=== PATIENT | female | born 1990 | race Caucasian/White ===

== ENCOUNTER 2016-12-07 21:47 | Inpatient (IN) | payer OTHER ==
[~2016-12-07] VITALS: Ht 172.7 cm; Wt 72.1 kg
[~2016-12-07 21:47] MED LIST: NORE1TAB60 PO
[2016-12-07 21:56] VITALS: BP 106/66; PULSE 128; RESP 20; TEMP 97.8; O2SAT 97
[2016-12-07] MEDS ORDERED: ACETAMINOPHEN 325 MG TAB PO PRN ×2 (22:00)
[2016-12-07] MEDS ORDERED: Vancomycin Consult Pharmacy 1 EA OTHER SCH (22:00)
[2016-12-07] MEDS ORDERED: MAGNESIUM HYDROXIDE SUSP 30 ML CUP PO PRN (22:00)
[2016-12-07] MEDS ORDERED: ONDANSETRON HCL 4 MG/2 ML VIAL IVP PRN (22:00)
[2016-12-07] MEDS ORDERED: SODIUM CHLORIDE 0.9% FLUSH 10 ML FLUSH IV FLUSH PRN (22:00)
[2016-12-07] MEDS: SODIUM CHLOR 0.9% 1000 ML INJ 1,000 ML IV SCH (23:08)
[2016-12-07] MEDS: ENOXAPARIN SODIUM 40 MG/0.4 ML SYRINGE SQ SCH (23:08)
[2016-12-07] MEDS: diphenhydrAMINE HCL 50 MG CAP PO PRN (23:31)
[2016-12-08 00:40] VITALS: BP 106/64; PULSE 118; RESP 18; TEMP 96.7; O2SAT 97
[2016-12-08 07:48] LABS: CHLORIDE 108 MEQ/L (98-107); POTASSIUM 3.8 MEQ/L (3.5-5.1); SODIUM (NA) 141 MEQ/L (136-145)
[2016-12-08 07:53] LABS: ANION GAP 6 MEQ/L (5-15); BICARBONATE 27.3 MEQ/L (21.0-32.0); BLOOD UREA NITROGEN 10 MG/DL (7-18)
[2016-12-08 07:56] LABS: ALT (GPT) 21 U/L (10-53); AST (GOT) 14 U/L (15-37); GLOMERULAR FILTRATION RATE 106 ML/MIN (>89)
[2016-12-08 07:58] LABS: TOTAL BILIRUBIN ADULT 0.7 MG/DL (0.2-1.0)
[2016-12-08 07:59] LABS: ALKALINE PHOSPHATASE 161 U/L (45-117)
[2016-12-08 08:00] VITALS: BP 101/71; PULSE 114; RESP 20; TEMP 97.6; O2SAT 94
[2016-12-08] MEDS ORDERED: VANCOMYCIN INJ 1,250 MG in SODIUM CHLOR 0.9% 250 ML INJ 250 ML IV SCH ×2 (08:00→09:00)
[2016-12-08] MEDS: SODIUM CHLOR 0.9% 1000 ML INJ 1,000 ML IV SCH ×3 (08:18→22:57)
[2016-12-08] MEDS: cefTRIAXone INJ 1,000 MG in SODIUM CHLORIDE 0.9% INJ 100 ML IV SCH (08:18)
[2016-12-08] MEDS: LACTOBACILLUS ACIDOPHILUS TAB PO SCH ×2 (08:19→22:57)
[2016-12-08] MEDS: SODIUM CHLORIDE 0.9% FLUSH 10 ML FLUSH IV FLUSH SCH ×2 (08:19→21:00)
[2016-12-08] MEDS ORDERED: SUBO8MIS SL (10:43)
[2016-12-08 12:00] VITALS: BP 118/77; PULSE 119; RESP 18; TEMP 97.6; O2SAT 99
--- NOTE | 2016-12-08 12:25 | HHI.HP ---
[facility] Primary Care Physician No Primary Care Physician Admission Diagnosis Diagnoses: (1) Sepsis (2) Gram-positive bacteremia (3) Bilateral pneumonia (4) IVDU (intravenous drug user) Chief Complaint: Shortness of breath Travel History International Travel<30 Days: No Contact w/Intl Traveler <30 Da: No Traveled to Known Affected Are: No Sepsis Criteria SIRS Criteria (2 or more): Heart rate over 90, RR > 20 or PaCO2 < 32 Sepsis Criteria (SIRS+source): Infect source susp/known Criteria Outcome: Meets sepsis criteria History of Present Illness 26 year-old female for past history of IVDU presented to the [place] ED for evaluation of worsening shortness of breath, hemoptysis and subjective fever with temperature of 103 times several days duration along with pleuritic chest pain. Patient states she's completed a second course of 10 days antibiotic for pneumonia. She was initially diagnosed with community acquired bacterial pneumonia in 10/30/16 however was able to fill out her prescription of Levaquin and prednisone on 11/04/16. Her second bout of pneumonia for which patient was put on a ten-day course of antibiotics was 11/19/16 patient recently completed. She also reports prior history of IVDU however has been clean over the past 3 years, unfortunately patient did use cocaine recently. She denies any hematuria, GI bleed. Review of Systems Except as stated in HPI: all other systems reviewed are Neg Past Family Social History Past Medical History H/O recent PNA IVDU Past Surgical History Previous surgery Reported Medications Suboxone Allergies: Coded Allergies: No Known Allergies (Unverified , 12/07/16) Family History Strong family history of diabetes, lung cancer Social History Alcohol Use: No Tobacco Use: Yes Substance Use: Recent cocaine use Physical Exam Vital Signs Vital Signs Date Time Temp Pulse Resp B/P Pulse Ox O2 Delivery O2 Flow Rate FiO2 12/08/16 08:00 97.6 114 20 101/71 94 12/08/16 00:40 96.7 118 18 106/64 97 12/07/16 21:56 97.8 128 20 106/66 97 12/07/16 21:56 97.8 128 20 106/66 97 Physical Exam GENERAL: This is a well-nourished, well-developed patient, in no apparent distress. SKIN: No rashes, ecchymoses or lesions. Cool and dry. HEAD: Atraumatic. Normocephalic. No temporal or scalp tenderness. EYES: Pupils equal round and reactive. Extraocular motions intact. No scleral icterus. No injection or drainage. ENT: Nose without bleeding, purulent drainage or septal hematoma. Throat without erythema, tonsillar hypertrophy or exudate. Uvula midline. Airway patent. NECK: Trachea midline. No JVD or lymphadenopathy. Supple, nontender, no meningeal signs. CARDIOVASCULAR: Regular rate and rhythm without murmurs, gallops, or rubs. RESPIRATORY: Clear to auscultation. Breath sounds equal bilaterally. No wheezes , rales, or rhonchi. GASTROINTESTINAL: Abdomen soft, non-tender, nondistended. No hepato-splenomegaly , or palpable masses. No guarding. MUSCULOSKELETAL: Extremities without clubbing, cyanosis, or edema. No joint tenderness, effusion, or edema noted. No calf tenderness. Negative Homans sign bilaterally. NEUROLOGICAL: Awake and alert. Cranial nerves II through XII intact. Motor and sensory grossly within normal limits. Five out of 5 muscle strength in all muscle groups. Normal speech. Laboratory Laboratory Tests Test 12/08/16 07:18 Sodium Level 141 Potassium Level 3.8 Chloride Level 108 Carbon Dioxide Level 27.3 Anion Gap 6 Blood Urea Nitrogen 10 Creatinine 0.67 Estimat Glomerular Filtration 106 Rate Random Glucose 98 Calcium Level 8.1 Total Bilirubin 0.7 Aspartate Amino Transf 14 (AST/SGOT) Alanine Aminotransferase 21 (ALT/SGPT) Alkaline Phosphatase 161 Total Protein 6.9 Albumin 1.9 Date/Time Procedure Status Source Growth 12/08/16 12:10 Aerobic Blood Culture Received Blood Peripheral Pending 12/08/16 12:10 Anaerobic Blood Culture Received Blood Peripheral Pending Result Diagram: 12/08/16 0718 Septic Shock Reassessment Skin: Warm, Switzer Peripheral Pulses: Bounding Right Radial Bounding Left Radial Bounding Right Popliteal Bounding Left Popliteal Bounding Right Dorsalis Pedis Bounding Left Dorsalis Pedis Bounding Right Posterior Tibial Bounding Left Posterior Tibial Capillary Refill: >2 seconds Assessment and Plan Problem List: (1) Sepsis ICD Code: A41.9 Status: Acute (2) Bilateral pneumonia ICD Code: J18.9 Status: Acute (3) Gram-positive bacteremia ICD Code: R78.81 Status: Acute (4) IVDU (intravenous drug user) ICD Code: F19.90 Status: Acute Assessment and Plan 26-year-old female with Sepsis: Meets sepsis criteria; Heart rate over 90, RR > 20 or PaCO2 < 32, Infect source susp/known (lungs). Lactic acid 1.2 currently on Rocephin and vancomycin pending culture reports Community acquired bacterial pneumonia Chest x-ray noted and reviewed by me with finding of bilateral pulmonary infiltrate Continue with above antibiotics Gram-positive bacteremia Repeat blood culture Continue current antibiotics Check 2-D echo secondary to patient history of IVDU Consult infectious disease specialist IVDU UDS positive for cocaine Counseled to quit DVT prophylaxis: Bilateral SCDs Code Status Full code Discussed Condition With Patient, ED physician Physician Certification 2 Midnight Certification Type: Admission for Inpatient Services Order for Inpatient Services The services are ordered in accordance with Medicare regulations or non- Medicare payer requirements, as applicable. In the case of services not specified as inpatient-only, they are appropriately provided as inpatient services in accordance with the 2-midnight benchmark. Estimated LOS (days): 2 days is the estimated time the patient will need to remain in the hospital, assuming treatment plan goals are met and no additional complications. Post-Hospital Plan: Not yet determined Yogesh Gomez MD Dec 08, 2016 12:25
[2016-12-08] MEDS: VANCOMYCIN 1,000 MG/NS 250 ML IV SCH ×4 (15:44→23:06)
[2016-12-08] MEDS: IBUPROFEN 400 MG TAB PO PRN (15:45)
[2016-12-08 16:00] VITALS: BP 117/74; PULSE 119; RESP 19; TEMP 98.6; O2SAT 97
--- NOTE | 2016-12-08 17:57 | ECHRPT ---
Indication: CONCLUSIONS Wall thickness is normal. Normal left ventricular size. The right ventricle was not well visualized. Trace mitral valve regurgitation. The tricuspid valve is not well visualized. There is moderate to severe tricuspid valve regurgitation. The estimated pulmonary arterial pressure is 39 mmHg. The pulmonary valve is not well visualized. I cannot rule out a mass or lesion on valve versus hyun fact. There is a small pericardial effusion present. BP: 118 / 77 HR: 119 Rhythm: Other MEASUREMENTS (Male / Female) Normal Values Technical Quality:Fair, Technically difficult stud y 2D ECHO LV Diastolic Diameter PLAX 4.6 cm 4.2 - 5.9 / 3.9 - 5.3 cm LV Systolic Diameter PLAX 2.9 cm IVS Diastolic Thickness 0.9 cm 0.6 - 1.0 / 0.6 - 0.9 cm LVPW Diastolic Thickness 0.9 cm 0.6 - 1.0 / 0.6 - 0.9 cm LV Relative Wall Thickness 0.4 LVOT Diameter 2.3 cm M-MODE Aortic Root Diameter MM 2.9 cm LA Systolic Diameter MM 2.5 cm LA Ao Ratio MM 0.9 AV Cusp Separation MM 2.1 cm DOPPLER AV Peak Velocity 205.0 cm/s AV Peak Gradient 16.8 mmHg LVOT Peak Velocity 91.8 cm/s LVOT Peak Gradient 3.4 mmHg AV Area Cont Eq pk 1.9 cm MR Peak Velocity 328.0 cm/s MR Peak Gradient 43.0 mmHg TR Peak Velocity 270.0 cm/s TR Peak Gradient 29.2 mmHg PV Peak Velocity 129.0 cm/s PV Peak Gradient 6.7 mmHg FINDINGS LEFT VENTRICLE The left ventricular systolic function is normal with an estimated ejection fraction in the range of 60-65%. Wall thickness is normal. Normal left ventricular size. RIGHT VENTRICLE The right ventricle was not well visualized. LEFT ATRIUM The left atrial size is normal. RIGHT ATRIUM The right atrial size is normal. ATRIAL SEPTUM Normal atrial septal thickness without atrial level shunting by limited color doppler interrogation. AORTA The aortic root and proximal ascending aorta are normal in size on limited imaging. MITRAL VALVE Structurally normal mitral valve. Trace mitral valve regurgitation. AORTIC VALVE Trileaflet aortic valve. No aortic valve stenosis or regurgitation. TRICUSPID VALVE The tricuspid valve is not well visualized. There is moderate to severe tricuspid valve regurgitation. The estimated pulmonary arterial pressure is 39 mmHg. PULMONARY VALVE The pulmonary valve is not well visualized. I cannot rule out a mass or lesion on valve versus hyun fact. VESSELS The inferior vena cava is normal in size. PERICARDIUM There is a small pericardial effusion present. Marques Otero MD (Electronically Signed) Final Date:08 December 2016 17:56
[2016-12-08 20:58] VITALS: BP 101/67; PULSE 105; RESP 18; TEMP 97.7; O2SAT 97
[2016-12-08] MEDS: diphenhydrAMINE HCL 50 MG CAP PO PRN (22:57)
[2016-12-08] MEDS: ENOXAPARIN SODIUM 40 MG/0.4 ML SYRINGE SQ SCH (22:58)
[2016-12-09 00:26] VITALS: BP 111/78; PULSE 112; RESP 22; TEMP 98.8; O2SAT 99
[2016-12-09] MEDS: IBUPROFEN 400 MG TAB PO PRN ×3 (01:02→17:38)
[2016-12-09] MEDS ORDERED: PHARMACY ORDERED LAB ONE (07:45)
[2016-12-09 07:59] LABS: AUTOMATED NEUTROPHIL # 6.5 TH/MM3 (1.8-7.7); BASOPHIL % 0.3 % (0.0-2.0); EOSINOPHIL # 0.1 TH/MM3 (0-0.4); EOSINOPHIL % 1.4 % (0.0-4.0); HEMATOCRIT 23.4 % (35.0-46.0); HEMO FLAGS DIFF FINAL; LYMPH % 17.8 % (9.0-44.0); LYMPHOCYTE # 1.6 TH/MM3 (1.0-4.8); MEAN CELL VOLUME 83.1 FL (80.0-100.0); MEAN CORPUSCULAR HEMOGLOBIN 27.2 PG (27.0-34.0); MEAN CORPUSCULAR HGB CONC 32.7 % (32.0-36.0); MONO % 6.2 % (0.0-8.0); NEUT % 74.3 % (16.0-70.0); PLATELET COUNT 423 TH/MM3 (150-450); RED BLOOD COUNT 2.81 MIL/MM3 (4.00-5.30); RED CELL DISTRIBUTION WIDTH 14.3 % (11.6-17.2); WHITE BLOOD COUNT 8.7 TH/MM3 (4.0-11.0)
[2016-12-09 08:00] VITALS: BP 118/84; PULSE 113; RESP 18; TEMP 98.1; O2SAT 99
[2016-12-09 08:14] VITALS: O2SAT 96
--- NOTE | 2016-12-09 08:34 | HHI.PR ---
Subjective Remarks Follow-up sepsis/bacteremia/bilateral pneumonia 12/09/16-patient seen and examined, currently afebrile and denies any cough production. On complains of tailbone pain Objective Vitals Vital Signs Date Time Temp Pulse Resp B/P Pulse Ox O2 Delivery O2 Flow Rate FiO2 12/09/16 08:14 96 21 12/09/16 00:26 98.8 112 22 111/78 99 12/08/16 20:58 97.7 105 18 101/67 97 12/08/16 16:00 98.6 119 19 117/74 97 12/08/16 12:00 97.6 119 18 118/77 99 I/O 12/08/16 12/08/16 12/08/16 12/09/16 12/09/16 12/09/16 07:00 15:00 23:00 07:00 15:00 23:00 Intake Total 1742 ml Balance 1742 ml Intake Oral 1000 ml IV Total 742 ml # Voids 1 9 1 # Bowel Movements 0 Result Diagram: 12/09/16 0740 12/08/16 0718 Objective Remarks GENERAL: NAD SKIN: Warm and dry. HEAD: Normocephalic. EYES: No scleral icterus. No injection or drainage. NECK: Supple, trachea midline. No JVD or lymphadenopathy. CARDIOVASCULAR: Regular rate and rhythm without murmurs, gallops, or rubs. RESPIRATORY: Breath sounds equal bilaterally. No accessory muscle use. GASTROINTESTINAL: Abdomen soft, non-tender, nondistended. MUSCULOSKELETAL: No cyanosis, or edema. BACK: Nontender without obvious deformity. No CVA tenderness. A/P Problem List: (1) Sepsis ICD Code: A41.9 Status: Acute (2) Bilateral pneumonia ICD Code: J18.9 Status: Acute (3) Gram-positive bacteremia ICD Code: R78.81 Status: Acute (4) IVDU (intravenous drug user) ICD Code: F19.90 Status: Acute Assessment and Plan 26-year-old female with Sepsis: Meets sepsis criteria; Heart rate over 90, RR > 20 or PaCO2 < 32, Infect source susp/known (lungs). Lactic acid 1.2 currently on Rocephin and vancomycin , continue to monitor culture Community acquired bacterial pneumonia Chest x-ray with finding of bilateral pulmonary infiltrate Continue with above antibiotics Gram-positive bacteremia Repeat blood culture negative to date Continue current antibiotics 2-D echo noted however per cardiology "The pulmonary valve is not well visualized. I cannot rule out a mass or lesion on valve versus artifact" infectious disease specialist consultation pending IVDU UDS positive for cocaine Counseled to quit Back pain Check lumbar CT and consider MRI Continue ibuprofen when necessary DVT prophylaxis: Bilateral SCDs Yogesh Gomez MD Dec 09, 2016 08:34
[2016-12-09] MEDS: SODIUM CHLOR 0.9% 1000 ML INJ 1,000 ML IV SCH (08:44)
[2016-12-09] MEDS: VANCOMYCIN 1,000 MG/NS 250 ML IV SCH ×2 (08:45)
[2016-12-09] MEDS: cefTRIAXone INJ 1,000 MG in SODIUM CHLORIDE 0.9% INJ 100 ML IV SCH (08:46)
[2016-12-09] MEDS: SODIUM CHLORIDE 0.9% FLUSH 10 ML FLUSH IV FLUSH SCH ×2 (08:46→20:08)
[2016-12-09] MEDS: LACTOBACILLUS ACIDOPHILUS TAB PO SCH ×2 (08:47→20:06)
--- NOTE | 2016-12-09 11:35 | RADRPT ---
EXAM DATE/TIME: 12/09/2016 11:07 [place] COMPARISON: No previous studies available for comparison. INDICATIONS : Lower back pain when patient coughs or stands. No known injury. RADIATION DOSE: 26.60 CTDIvol (mGy) MEDICAL HISTORY : None SURGICAL HISTORY : None. ENCOUNTER: Initial ACUITY: 1 week PAIN SCALE: 6/10 LOCATION: spine TECHNIQUE: Volumetric scanning of the lumbar spine was performed. Multiplanar reconstructions in the sagittal, coronal and oblique axial planes were performed. Using automated exposure control and adjustment of the mA and/or kV according to patient size, radiation dose was kept as low as reasonably achievable t o obtain optimal diagnostic quality images. DICOM format image data is available electronically for review and comparison. FINDINGS: VERTEBRAE: Normal vertebral body height. ALIGNMENT: No evidence of subluxation. There is straightening of the normal lumbar lordosis. T12-L1: The thecal sac has a normal diameter. No evidence of disc bulge or protrusion. The neural foramina are patent bilaterally. L1-L2: The thecal sac has a normal diameter. No evidence of disc bulge or protrusion. The neural foramina are patent bilaterally. L2-L3: The thecal sac has a normal diameter. No evidence of disc bulge or protrusion. The neural foramina are patent bilaterally. L3-L4: The thecal sac has a normal diameter. No evidence of disc bulge or protrusion. The neural foramina are patent bilaterally. L4-L5: The thecal sac has a normal diameter. No evidence of disc bulge or protrusion. The neural foramina are patent bilaterally. L5-S1: There is an asymmetric annular disc bulge greatest in left parasagittal region. This meets the left S 1 traversing nerve root which is displaced posteriorly several millimeters. There are mild degenerati ve changes involving the facet joints. There is no central canal stenosis. The neural foramina are pa tent bilaterally. CONCLUSION: 1. Mild asymmetric disc bulge at the L5-S1 level an apparent mild mass effect on the left S1 nerve ro ot which is displaced posteriorly several millimeters. 2. Straightening of the normal lumbar lordosis. Kunal Rachel MD on December 09, 2016 at 11:31 Board Certified Radiologist. This report was verified electronically.
[2016-12-09 12:00] VITALS: BP 109/74; PULSE 111; RESP 19; TEMP 97.6; O2SAT 98
[2016-12-09 16:00] VITALS: BP 115/77; PULSE 96; RESP 19; TEMP 99.7; O2SAT 96
[2016-12-09] MEDS ORDERED: VANCOMYCIN INJ 1,250 MG in SODIUM CHLOR 0.9% 250 ML INJ 250 ML IV SCH (17:00)
--- NOTE | 2016-12-09 19:02 | PD.ID.CON ---
History of Present Illness Service ID Consult Requested By Dr Gomez Reason for Consult gram positive bbacteremia, PNA, h/o IVDA Primary Care Physician No Primary Care Physician Diagnoses: History of Present Illness 26 yo with remote h/o IVDA - quit > 1 yr ago per slef report developped cough, SOB fever, chills, night sweats x 1 month Reports a course of Levaquine recently with some initial imptvement, then gort worse again Her blood clx are growing gram + in pairs and clusters at 1 day, CXR showed b/l infiltrates 2 D echo with ? pulmonic valve lesion/mass She was in ER on 12/07 and her blood clx were all positive for MSSA 07/31 bottles Review of Systems Constitutional: COMPLAINS OF: Fatigue, Fever, Chills, Night Sweats Respiratory: COMPLAINS OF: Cough, Sputum production, Shortness of breath Musculoskeletal: COMPLAINS OF: Back pain (coccyx area) Except as stated in HPI: all other systems reviewed are Neg Past Family Social History Allergies: Coded Allergies: No Known Allergies (Unverified , 12/07/16) Past Medical History H/O recent PNA IVDU Past Surgical History non indicated in the chart Active Ordered Medications Medications where reviewed in EMR Antibiotics Include: vancomycin CFTX Family History Strong family history of diabetes, lung cancer Social History Alcohol Use: No Tobacco Use: Yes Substance Use: Recent cocaine use, IVDU - remote s/ rehab Physical Exam Vital Signs Vital Signs Date Time Temp Pulse Resp B/P Pulse Ox O2 Delivery O2 Flow Rate FiO2 12/09/16 16:00 99.7 96 19 115/77 96 12/09/16 12:00 97.6 111 19 109/74 98 12/09/16 08:14 96 21 12/09/16 08:00 98.1 113 18 118/84 99 12/09/16 00:26 98.8 112 22 111/78 99 12/08/16 20:58 97.7 105 18 101/67 97 Physical Exam CONSTITUTIONAL/GENERAL: This is an adequately nourished patient, in no apparent distress. TUBES/LINES/DRAINS: SKIN: No jaundice, rashes, or lesions. Skin temperature appropriate. Not diaphoretic. HEAD: Atraumatic. Normocephalic. EYES: Pupils equal and round and reactive. Extraocular motions intact. No scleral icterus. No injection or drainage. Fundi not examined. ENT: Hearing grossly normal. Nose without bleeding or purulent drainage. Throat without visible erythema, exudates, masses, or lesions. NECK: Trachea midline. Supple, nontender. N CARDIOVASCULAR: Regular rate and rhythm without murmurs, gallops, or rubs. No JVD. Peripheral pulses symmetric. RESPIRATORY/CHEST: Symmetric, unlabored respirations. Clear to auscultation. Breath sounds equal bilaterally. No wheezes, rales, or rhonchi. GASTROINTESTINAL: Abdomen soft, non-tender, nondistended. No hepato-splenomegaly , or palpable masses. No guarding. Bowel sounds present. MUSCULOSKELETAL: Extremities without clubbing, cyanosis, or edema. No joint tenderness or effusion noted. No calf tenderness. No mottling or clubbing. BACK: no tenderness to palpation LYMPHATICS: No palpable cervical or supraclavicular adenopathy. NEUROLOGICAL: Awake and alert. Motor and sensory grossly within normal limits. Follows commands. Clear speech. Moves all extremities. PSYCHIATRIC: No obvious anxiety/depression. no apparent hallucinations or other psychotic thought process. Laboratory Laboratory Tests Test 12/09/16 12/09/16 07:40 08:32 White Blood Count 8.7 Red Blood Count 2.81 Hemoglobin 7.7 Hematocrit 23.4 Mean Corpuscular Volume 83.1 Mean Corpuscular Hemoglobin 27.2 Mean Corpuscular Hemoglobin 32.7 Concent Red Cell Distribution Width 14.3 Platelet Count 423 Mean Platelet Volume 6.0 Neutrophils (%) (Auto) 74.3 Lymphocytes (%) (Auto) 17.8 Monocytes (%) (Auto) 6.2 Eosinophils (%) (Auto) 1.4 Basophils (%) (Auto) 0.3 Neutrophils # (Auto) 6.5 Lymphocytes # (Auto) 1.6 Monocytes # (Auto) 0.5 Eosinophils # (Auto) 0.1 Basophils # (Auto) 0.0 CBC Comment DIFF FINAL Differential Comment Vancomycin Level Trough 8.3 Date/Time Procedure Status Source Growth 12/08/16 12:10 Aerobic Blood Culture - Preliminary Resulted Blood Peripheral Gram Positive Cocci 12/08/16 12:10 Anaerobic Blood Culture - Preliminary Resulted Blood Peripheral NO GROWTH IN 1 DAY Result Diagram: 12/09/16 0740 12/08/16 0718 Imaging Last Impressions Lumbar Spine CT 12/09/16 1050 Signed Impressions: Service Date/Time: Friday, December 09, 2016 11:07 - CONCLUSION: 1. Mild asymmetric disc bulge at the L5-S1 level an apparent mild mass effect on the left S1 nerve root which is displaced posteriorly several millimeters. 2. Straightening of the normal lumbar lordosis. Kunal Rachel MD Assessment and Plan Assessment and Plan MSSA bacteremia, suspect endocarditis Pulmonic valve vegetation? PNA vs septic emboli (more likely) IVDU, per pt remote lower back pin - CT negative for infx, + for buldging disk change abx to cefazoline consult die polisher for KALIN Shana Mosley MD Dec 09, 2016 19:02
[2016-12-09] MEDS: diphenhydrAMINE HCL 50 MG CAP PO PRN (20:06)
[2016-12-09 20:34] VITALS: BP 120/89; PULSE 133; RESP 20; TEMP 98.7; O2SAT 97
[2016-12-09] MEDS: ENOXAPARIN SODIUM 40 MG/0.4 ML SYRINGE SQ SCH (22:52)
[2016-12-10 01:08] VITALS: BP 109/74; RESP 26; TEMP 98; O2SAT 100
[2016-12-10 08:00] VITALS: BP 114/80; PULSE 121; RESP 18; TEMP 96.8; O2SAT 93
--- NOTE | 2016-12-10 08:34 | HHI.PR ---
Subjective Remarks Follow-up sepsis/bacteremia/bilateral pneumonia 12/09/16-patient seen and examined, currently afebrile and denies any cough production. On complains of tailbone pain 12/10/16-patient seen and examined, still complains of low back pain otherwise acute event overnight. MAXIMUM TEMPERATURE 99.7 at 4 PM however currently afebrile Objective Vitals Vital Signs Date Time Temp Pulse Resp B/P Pulse Ox O2 Delivery O2 Flow Rate FiO2 12/10/16 05:09 12/10/16 01:08 98.0 26 109/74 100 12/09/16 20:34 98.7 133 20 120/89 97 12/09/16 16:00 99.7 96 19 115/77 96 12/09/16 12:00 97.6 111 19 109/74 98 I/O 12/09/16 12/09/16 12/09/16 12/10/16 12/10/16 12/10/16 06:59 14:59 22:59 06:59 14:59 22:59 Intake Total 850 ml 200 ml Balance 850 ml 200 ml IV Total 850 ml 200 ml # Voids 1 2 Result Diagram: 12/09/16 0740 12/08/16 0718 Imaging Last Impressions Lumbar Spine CT 12/09/16 1050 Signed Impressions: Service Date/Time: Friday, December 09, 2016 11:07 - CONCLUSION: 1. Mild asymmetric disc bulge at the L5-S1 level an apparent mild mass effect on the left S1 nerve root which is displaced posteriorly several millimeters. 2. Straightening of the normal lumbar lordosis. Kunal Rachel MD Objective Remarks GENERAL: NAD SKIN: Warm and dry. HEAD: Normocephalic. EYES: No scleral icterus. No injection or drainage. NECK: Supple, trachea midline. No JVD or lymphadenopathy. CARDIOVASCULAR: Tachycardia Regular rate and rhythm without murmurs, gallops, or rubs. RESPIRATORY: Breath sounds equal bilaterally. No accessory muscle use. GASTROINTESTINAL: Abdomen soft, non-tender, nondistended. MUSCULOSKELETAL: No cyanosis, or edema. BACK: Nontender without obvious deformity. No CVA tenderness. A/P Problem List: (1) Sepsis ICD Code: A41.9 Status: Acute (2) Bilateral pneumonia ICD Code: J18.9 Status: Acute (3) Gram-positive bacteremia ICD Code: R78.81 Status: Acute (4) IVDU (intravenous drug user) ICD Code: F19.90 Status: Acute Assessment and Plan 26-year-old female with Sepsis: Meets sepsis criteria; Heart rate over 90, RR > 20 or PaCO2 < 32, Infect source susp/known (lungs). Status post Rocephin and vancomycin; currently on Ancef 2 g every 8 hours IV; continue to monitor cultures Community acquired bacterial pneumonia Chest x-ray with finding of bilateral pulmonary infiltrate Continue with above antibiotic including Ancef Sputum culture pending Gram-positive bacteremia Repeat blood culture Continue current antibiotic including Ancef 2 g IV every 8 2-D echo noted however per cardiology "The pulmonary valve is not well visualized. I cannot rule out a mass or lesion on valve versus artifact" Cardiology consultation pending for KALIN Infectious disease specialist ff IVDU UDS positive for cocaine Counseled to quit KALIN pending Back pain Check lumbar CT with finding of Mild asymmetric disc bulge at the L5-S1 level . Continue ibuprofen when necessary DVT prophylaxis: Bilateral SCDs Yogesh Gomez MD Dec 10, 2016 08:34
[2016-12-10] MEDS: ceFAZolin 2 GM PREMIX 50 ML IV SCH ×4 (08:43→23:51)
[2016-12-10] MEDS: SODIUM CHLORIDE 0.9% FLUSH 10 ML FLUSH IV FLUSH SCH ×2 (08:43→22:15)
[2016-12-10] MEDS: LACTOBACILLUS ACIDOPHILUS TAB PO SCH ×2 (08:43→22:15)
[2016-12-10] MEDS: IBUPROFEN 400 MG TAB PO PRN ×3 (08:44→23:51)
[2016-12-10] MEDS ORDERED: PHARMACY ORDERED LAB ONE (08:45)
[2016-12-10 12:00] VITALS: BP 113/80; PULSE 114; RESP 18; TEMP 97; O2SAT 94
[2016-12-10 20:25] VITALS: BP 123/77; PULSE 111; RESP 16; TEMP 97.6; O2SAT 97
[2016-12-10 23:52] VITALS: BP 131/65; PULSE 113; RESP 16; TEMP 97.6; O2SAT 96
[2016-12-11] VITALS (8 sets, daily range): BP systolic 114–132; BP diastolic 69–78; PULSE 100–123; RESP 16–20; TEMP 97.6–100; O2SAT 95–99
[2016-12-11] MEDS: ceFAZolin 2 GM PREMIX 50 ML IV SCH ×3 (07:44→23:19)
[2016-12-11] MEDS: LACTOBACILLUS ACIDOPHILUS TAB PO SCH ×2 (07:44→20:54)
[2016-12-11] MEDS: SODIUM CHLORIDE 0.9% FLUSH 10 ML FLUSH IV FLUSH SCH ×2 (07:44→20:54)
[2016-12-11] MEDS ORDERED: LACTATED RINGER'S 1000 ML IV PRN (08:15)
[2016-12-11] MEDS ORDERED: METOPROLOL TARTRATE 25 MG TAB PO PRN (08:15)
[2016-12-11] MEDS ORDERED: SODIUM CHLORID 0.9% 500 ML IV PRN (08:15)
[2016-12-11] MEDS ORDERED: POVIDONE IODINE 5% (ANTISEPSIS KIT) 4 APPLICATIONS EACH NARE PRN (08:15)
[2016-12-11] MEDS ORDERED: CHLORHEXIDINE GLUCONATE 2 % 1 PACK (2 CLOTHS) TOPICAL PRN (08:15)
[2016-12-11] MEDS ORDERED: INSULIN HUMAN REGULAR 1,000 UNITS/10 ML VIAL SQ PRN (08:15)
[2016-12-11] MEDS: IBUPROFEN 400 MG TAB PO PRN ×2 (09:58→16:33)
--- NOTE | 2016-12-11 10:05 | MB ---
cc: BG BROWN DATE OF CONSULTATION 12/11/2016 DATE OF 1990 REASON FOR CONSULTATION Sepsis/infectious endocarditis/for KALIN. HISTORY OF PRESENT ILLNESS 26-year-old female with a remote history of IVDA use who presented to the hospital with worsening cough, shortness of breath, fevers, chills, night sweats and being diagnosed with sepsis. The patient was initially treated with Levaquin with some initial improvement, however, she got worse. The patient had 4/4 bottles growing MSSA bacteremia. Transthoracic echocardiogram showed severe tricuspid regurgitation, could not exclude vegetations. Cardiology has been consulted for transesophageal echocardiogram. REVIEW OF SYSTEMS Negative except for what is mentioned in HPI. ALLERGIES NO KNOWN DRUG ALLERGIES. PAST MEDICAL HISTORY History of: 1. Pneumonia 2. IVDU PAST SURGICAL HISTORY None FAMILY HISTORY Diabetes and lung cancer. SOCIAL HISTORY She denies alcohol. She is an active smoker and she had a remote history IVDU about a year ago. PHYSICAL EXAMINATION VITAL SIGNS: Temperature 98, pulse 110, respiratory rate 16, blood pressure 129 /78, O2 sat 99% room air. GENERAL: Awake, alert and oriented x3 in no acute distress. NECK: No JVD or carotid bruits. HEART: Regular rate and rhythm, no murmurs, rubs or gallops. LUNGS: Clear to auscultation bilaterally. ABDOMEN: Soft, nontender and nondistended. EXTREMITIES: No cyanosis or edema. Pulses throughout. DATA CBC hemoglobin 7.7, hematocrit 23, platelet count 423. Sodium 141, potassium 3.8, BUN 10, creatinine 0.67, calcium 8.1, AST 14, alkaline phosphatase [address] scan, there is a mildly symmetric disc bulge at the L5-S1 level an apparent mild mass effect on the left S1 nerve root which is displaced posteriorly. Chest x-ray, patchy bilateral air space infiltrates. ECHOCARDIOGRAM There is a normal LV size and function with moderate to severe tricuspid regurgitation. The pulmonary valve is not well visualized ASSESSMENT/PLAN 26-year-old female with a remote history IVDA used admitted with sepsis. There is a question of a pulmonary valve vegetation that was not well seen on the surface echocardiogram. I think it is appropriate to perform a KALIN to further interrogate valve structures in the setting of sepsis and IVDA use. The risks and benefits of KALIN have been explained to the patient. The patient understands the risks and she is willing to proceed. Thank you for the opportunity to take part in the care of this patient. Further management to be determined. MD SAI Wells/DORIAN /8:28 AM /9:52 AM FLOR
--- NOTE | 2016-12-11 12:24 | HHI.PR ---
Subjective Remarks Follow-up for bilateral pneumonia and bacteremia During the interview multiple family members were present. Patient was in a very good mood and looked very happy. She stated that she feels great. Denies any shortness of breathing or cough. Patient also stated that her back pain has resolved. She has no complaints. Patient had a KALIN done this morning. Objective Vitals Vital Signs Date Time Temp Pulse Resp B/P Pulse Ox O2 Delivery O2 Flow Rate FiO2 12/11/16 11:27 116 12/11/16 08:00 100.0 122 20 130/72 97 12/11/16 04:05 98.4 110 16 129/78 99 12/10/16 23:52 97.6 113 16 131/65 96 12/10/16 20:25 97.6 111 16 123/77 97 12/10/16 16:24 18 I/O 12/10/16 12/10/16 12/10/16 12/11/16 12/11/16 12/11/16 07:00 15:00 23:00 07:00 15:00 23:00 Intake Total 200 ml 100 ml 240 ml 0 ml Output Total 325 ml Balance 200 ml 100 ml 240 ml -325 ml Intake Oral 240 ml 0 ml IV Total 200 ml 100 ml Output Urine Total 325 ml # Voids 1 # Bowel Movements 0 0 Result Diagram: 12/09/16 0740 12/08/16 0718 Objective Remarks GENERAL: In no acute distress. SKIN: Warm and dry. HEAD: Normocephalic. EYES: No scleral icterus. No injection or drainage. NECK: Supple, trachea midline. No JVD or lymphadenopathy. CARDIOVASCULAR: Regular rate and rhythm without murmurs, gallops, or rubs. RESPIRATORY: Breath sounds equal bilaterally. No accessory muscle use. GASTROINTESTINAL: Abdomen soft, non-tender, nondistended. Medications and IVs Current Medications Sodium Chloride (NS 1000 ml Inj) 1,000 ml @ 100 mls/hr Q10H IV Last administered on 12/09/16t 08:44; Start 12/07/16 at 22:00; Stop 12/09/16 at 18:33 ; Status DC Sodium Chloride (NS Flush) 2 ml UNSCH PRN IV FLUSH FLUSH AFTER USING IV ACCESS ; Start 12/07/16 at 22:00 Sodium Chloride (NS Flush) 2 ml BID IV FLUSH Last administered on 12/11/16 07: 44; Start 12/08/16 at 09:00 Acetaminophen (Tylenol) 650 mg Q4H PRN PO TEMP > 100.4; Start 12/07/16 at 22:00 Ondansetron HCl (Zofran Inj) 4 mg Q6H PRN IVP NAUSEA OR VOMITING; Start at 22:00 Enoxaparin Sodium (Lovenox Inj) 40 mg Q24H SQ Last administered on 12/09/16 22 :52; Start 12/07/16 at 22:00; Status Hold Acetaminophen (Tylenol) 650 mg Q6H PRN PO PAIN SCALE 1 TO 2; Start 12/07/16 at 22:00 Magnesium Hydroxide 30 ml 30 ml Q12H PRN PO MILD - MODERATE CONSTIPATION; Start 12/07/16 at 22:00 Ceftriaxone Sodium 1000 mg/ Sodium Chloride 100 ml @ 200 mls/hr Q24H IV Last administered on 12/09/16 08:46; Start 12/08/16 at 09:00; Stop 12/09/16 at 23:43 ; Status DC Pharmacy Profile Note 0 ml @ 0 mls/hr UNSCH OTHER ; Start 12/07/16 at 22:00; Stop 12/09/16 at 23:43; Status DC Vancomycin HCl/ Sodium Chloride (Vancomycin Inj/ NS 250 ml Inj) 262.5 ml @ 262.5 mls/ hr Q24H IV ; Start 12/08/16 at 09:00; Status UNV Lactobacillus Acidophilus 1 tab 1 tab Q12HR PO Last administered on 12/11/16 07:44; Start 12/08/16 at 09:00 Vancomycin HCl/ Sodium Chloride (Vancomycin Inj/ NS 250 ml Inj) 262.5 ml @ 250 mls/hr Q12H IV Last administered on 12/08/16 08:18; Start 12/08/16 at 08:00; Stop 12/08/16 at 10:27; Status DC Miscellaneous Information SPECIFIC LAB TO BE DRAWN:VANCOMYCIN TROUGH DATE TO... ONCE ONCE .XX Last administered on 12/09/16 08:10; Start 12/09/16 at 07:45; Stop 12/09/16 at 07:46; Status DC Diphenhydramine HCl 50 mg 50 mg HS PRN PO INSOMNIA Last administered on 20:06; Start 12/07/16 at 23:15 Vancomycin HCl/ Sodium Chloride (Vancomycin Inj/ NS 250 ml Inj) 250 ml @ 250 mls/hr Q8H IV Last administered on 12/09/16 08:45; Start 12/08/16 at 16:00; Stop 12/09/16 at 10:51; Status DC Ibuprofen 400 mg 400 mg Q8H PRN PO pain>2 Last administered on 12/11/16 09:58 ; Start 12/08/16 at 14:15 Vancomycin HCl/ Sodium Chloride (Vancomycin Inj/ NS 250 ml Inj) 262.5 ml @ 250 mls/hr Q8H IV Last administered on 12/09/16 17:36; Start 12/09/16 at 17:00; Stop 12/09/16 at 23:43; Status DC Miscellaneous Information SPECIFIC LAB TO BE DRAWN:VANCO TROUGH DATE TO... ONCE ONCE .XX ; Start 12/10/16 at 08:45; Stop 12/10/16 at 08:46; Status Cancel Cefazolin Sodium/ Dextrose 50 ml @ 100 mls/hr Q8H IV Last administered on 12/11 07:44; Start 12/10/16 at 00:00 Lactated Ringer's 1,000 ml @ 30 mls/hr Q24H PRN IV SEE LABEL COMMENTS; Start at 08:15; Stop 12/14/16 at 08:14 Sodium Chloride (NS 500 ml Inj) 500 ml @ 30 mls/hr [id number] PRN IV SEE LABEL COMMENTS; Start 12/11/16 at 08:15; Stop 12/14/16 at 08:14 Metoprolol Tartrate (Lopressor) 25 mg HOSPITAL ADMISSIONS OFFICER PRN PO SEE LABEL COMMENTS; Start 12/11/16 at 08:15; Stop 12/14/16 at 08:14 Povidone Iodine (Betadine 5% Antisepsis Kit) 1 applic HOSPITAL ADMISSIONS OFFICER PRN EACH NARE SEE LABEL COMMENTS; Start 12/11/16 at 08:15; Stop 12/14/16 at 08:14 Chlorhexidine Gluconate (Chlorhexidine 2% Cloth) 3 pack HOSPITAL ADMISSIONS OFFICER PRN TOPICAL SEE LABEL COMMENTS; Start 12/11/16 at 08:15; Stop 12/14/16 at 08:14 Insulin Human Regular (NovoLIN R INJ) See Protocol Table ... HOSPITAL ADMISSIONS OFFICER PRN SQ SEE PROTOCOL TABLE; Start 12/11/16 at 08:15; Stop 12/14/16 at 08:14 A/P Problem List: (1) Sepsis ICD Code: A41.9 Status: Acute (2) Bilateral pneumonia ICD Code: J18.9 Status: Acute (3) Gram-positive bacteremia ICD Code: R78.81 Status: Acute (4) IVDU (intravenous drug user) ICD Code: F19.90 Status: Acute Assessment and Plan 26-year-old female with Sepsis: Meets sepsis criteria; Heart rate over 90, RR > 20 or PaCO2 < 32, Infect source susp/known (lungs). Status post Rocephin and vancomycin; currently on Ancef 2 g every 8 hours IV; continue to monitor cultures Community acquired bacterial pneumonia Chest x-ray with finding of bilateral pulmonary infiltrate Continue with above antibiotic including Ancef Sputum cultures negative. MSSA bacteremia Repeat blood culture still pending. Dealt with nurse to call lab to obtain repeat blood cultures. Continue current antibiotic including Ancef 2 g IV every 8 2-D echo noted however per cardiology "The pulmonary valve is not well visualized. I cannot rule out a mass or lesion on valve versus artifact" Cardiology consultation and per patient she had a KALIN done this morning. Pending report. Infectious disease specialist ff IVDU UDS positive for cocaine Counseled to quit KALIN pending Back pain Check lumbar CT with finding of Mild asymmetric disc bulge at the L5-S1 level . Continue ibuprofen when necessary Patient stated that pain is controlled resolved. DVT prophylaxis: Bilateral SCDs Elsa Conte MD Dec 11, 2016 12:24
[2016-12-11] MEDS: LORazepam 0.5 MG TAB PO PRN (16:32)
--- NOTE | 2016-12-11 16:46 | HHI.IDPN ---
Subjective Subjective Remarks KALIN showed large tricuspid valve vegetation - dw Dr Castaneda + low- grade fever Antibiotics cefazoline Allergies: Coded Allergies: No Known Allergies (Unverified , 12/07/16) Objective . Vital Signs Date Time Temp Pulse Resp B/P Pulse Ox O2 Delivery O2 Flow Rate FiO2 12/11/16 16:00 98.5 100 20 120/69 98 12/11/16 12:00 97.6 108 20 117/77 98 12/11/16 11:27 116 12/11/16 08:00 100.0 122 20 130/72 97 12/11/16 04:05 98.4 110 16 129/78 99 12/10/16 23:52 97.6 113 16 131/65 96 12/10/16 20:25 97.6 111 16 123/77 97 12/10/16 12/10/16 12/11/16 15:00 23:00 07:00 Intake Total 100 ml 240 ml 0 ml Output Total 325 ml Balance 100 ml 240 ml -325 ml Intake Oral 240 ml 0 ml IV Total 100 ml Output Urine Total 325 ml # Voids 1 # Bowel Movements 0 0 . Microbiology Date/Time Procedure Status Source Growth 12/10/16 13:05 Gram Stain - Final Resulted Sputum Expectorated Sputum 12/10/16 13:05 Sputum Culture - Preliminary Resulted Sputum Expectorated Sputum HEAVY GROWTH NORMAL RESPIRATORY ARY... Imaging Last Impressions Lumbar Spine CT 12/09/16 1050 Signed Impressions: Service Date/Time: Friday, December 09, 2016 11:07 - CONCLUSION: 1. Mild asymmetric disc bulge at the L5-S1 level an apparent mild mass effect on the left S1 nerve root which is displaced posteriorly several millimeters. 2. Straightening of the normal lumbar lordosis. Kunal Rachel MD Physical Exam CONSTITUTIONAL/GENERAL: This is an adequately nourished patient, in no apparent distress. TUBES/LINES/DRAINS: SKIN: No jaundice, rashes, or lesions. CARDIOVASCULAR: Regular rate and rhythm without murmurs, gallops, or rubs. No JVD. Peripheral pulses symmetric. RESPIRATORY/CHEST: Symmetric, unlabored respirations. Clear to auscultation. GASTROINTESTINAL: Abdomen soft, non-tender, nondistended. No hepato-splenomegaly , or palpable masses. MUSCULOSKELETAL: Extremities without clubbing, cyanosis, or edema. NEUROLOGICAL: Awake and alert. Motor and sensory grossly within normal limits. Follows commands. Clear speech. Moves all extremities. PSYCHIATRIC: No obvious anxiety/depression. no apparent hallucinations or other psychotic thought process. Assessment & Plan Remarks MSSA bacteremia, suspect endocarditis Tricuspid valve vegetation? pulmonary septic emboli IVDU, per pt remote lower back pin - CT negative for infx, + for buldging disk cont cefazoline fu repeat blood clx Shana Mosley MD Dec 11, 2016 16:46
[2016-12-11 17:43] LABS: AUTOMATED NEUTROPHIL # 5.1 TH/MM3 (1.8-7.7); BASOPHIL % 0.5 % (0.0-2.0); EOSINOPHIL # 0.1 TH/MM3 (0-0.4); EOSINOPHIL % 1.2 % (0.0-4.0); HEMATOCRIT 27.3 % (35.0-46.0); LYMPH % 24.1 % (9.0-44.0); LYMPHOCYTE # 1.8 TH/MM3 (1.0-4.8); MEAN CELL VOLUME 83.9 FL (80.0-100.0); MEAN CORPUSCULAR HEMOGLOBIN 26.8 PG (27.0-34.0); NEUT % 67.2 % (16.0-70.0); PLATELET COUNT 379 TH/MM3 (150-450); PROTHROMBIN TIME - PATIENT 11.1 SEC (9.8-11.6); RED BLOOD COUNT 3.26 MIL/MM3 (4.00-5.30); RED CELL DISTRIBUTION WIDTH 15.2 % (11.6-17.2); WHITE BLOOD COUNT 7.6 TH/MM3 (4.0-11.0)
[2016-12-11 17:56] LABS: BICARBONATE 26.1 MEQ/L (21.0-32.0); POTASSIUM 3.7 MEQ/L (3.5-5.1)
[2016-12-11 18:15] LABS: HEMO FLAGS AUTO DIFF
[2016-12-11 18:16] LABS: PLATELET ESTIMATE SMEAR NORMAL (NORMAL); PLATELET MORPHOLOGY NORMAL (NORMAL); SCAN/DIFF AUTO DIFF CONFIRMED
[2016-12-12] VITALS (7 sets, daily range): BP systolic 106–121; BP diastolic 51–80; PULSE 109–132; RESP 16–18; TEMP 97.7–99.4; O2SAT 95–98
[2016-12-12] MEDS: IBUPROFEN 400 MG TAB PO PRN ×3 (00:46→17:42)
[2016-12-12] MEDS: LORazepam 0.5 MG TAB PO PRN ×3 (00:46→17:42)
--- NOTE | 2016-12-12 07:55 | ECHRPT ---
Indication: SEPSIS, ENDOCARDITIS CONCLUSIONS A complete two-dimensional, color flow and Doppler transesophageal study is performed. Normal LV systolic function No wall motion abnormalities Moderate to Severe Tricuspid Regurgitation There is an oscillating echogenic mass of moderate size CONSISTENT WITH A VEGETATION in the tricuspid valve. No significant valvulopathies, masses or vegetations in the mitral, aortic or pulmonic valves. Small pericardial effusion BP: / HR: Rhythm: Sinus Technical Quality:Good Medications Complications Proc. Components FINDINGS ATRIAL APPENDAGES Normal left atrial appendage size with no evidence of thrombus formation. MITRAL VALVE Structurally normal mitral valve. Trace mitral valve regurgitation. AORTIC VALVE Trileaflet aortic valve. No aortic valve regurgitation. No aortic valve stenosis. TRICUSPID VALVE There was a vegetation visible on the posterior leaflet of the tricuspid valve. The vegetation is quite moderate in size and appears to flip back and forth from the ventricle and t he atria. There is at least moderate tricuspid regurgitation. VESSELS No pulmonary valve regurgitation or stenosis. PERICADIUM There is a small pericardial effusion present. Esau Tsang MD (Electronically Signed) Final Date:12 December 2016 07:53
[2016-12-12] MEDS: LACTOBACILLUS ACIDOPHILUS TAB PO SCH ×2 (08:04→20:32)
[2016-12-12] MEDS: SODIUM CHLORIDE 0.9% FLUSH 10 ML FLUSH IV FLUSH SCH ×2 (08:04→20:33)
[2016-12-12] MEDS: ceFAZolin 2 GM PREMIX 50 ML IV SCH ×3 (08:05→23:20)
--- NOTE | 2016-12-12 13:50 | HHI.PR ---
Subjective Remarks Follow-up for endocarditis and bilateral pneumonia Patient stated that she coughed up blood today. She stated that she has been coughing up blood for the past month but this was the first time during hospitalization. Patient stated that she hasn't really been coughing much at all and when she does cough it is mild. She denies any shortness of breathing. Her brother and mother at the bedside. No other complaints. Objective Vitals Vital Signs Date Time Temp Pulse Resp B/P Pulse Ox O2 Delivery O2 Flow Rate FiO2 12/12/16 12:00 97.7 115 18 121/51 95 12/12/16 08:00 Room Air 12/12/16 08:00 97.9 117 18 116/80 96 12/12/16 07:59 132 12/12/16 04:35 98.5 109 16 110/77 96 12/12/16 01:24 18 12/11/16 23:20 98.3 123 18 132/69 98 12/11/16 20:12 113 12/11/16 20:04 97.9 111 18 114/74 95 12/11/16 16:00 98.5 100 20 120/69 98 I/O 12/11/16 12/11/16 12/11/16 12/12/16 12/12/16 12/12/16 06:59 14:59 22:59 06:59 14:59 22:59 Intake Total 0 ml 60 ml 536 ml Output Total 325 ml 600 ml 850 ml Balance -325 ml -540 ml -314 ml Intake Oral 0 ml 60 ml 480 ml IV Total 56 ml Output Urine Total 325 ml 600 ml 850 ml # Voids 4 # Bowel Movements 0 0 0 Result Diagram: 12/11/16 1650 12/11/16 1650 Objective Remarks GENERAL: In no acute distress. SKIN: Warm and dry. HEAD: Normocephalic. EYES: No scleral icterus. No injection or drainage. NECK: Supple, trachea midline. No JVD or lymphadenopathy. CARDIOVASCULAR: Regular rate and rhythm without murmurs, gallops, or rubs. RESPIRATORY: Breath sounds equal bilaterally. No accessory muscle use. GASTROINTESTINAL: Abdomen soft, non-tender, nondistended. Medications and IVs Current Medications Sodium Chloride (NS 1000 ml Inj) 1,000 ml @ 100 mls/hr Q10H IV Last administered on 12/09/16 08:44; Start 12/07/16 at 22:00; Stop 12/09/16 at 18:33 ; Status DC Sodium Chloride (NS Flush) 2 ml UNSCH PRN IV FLUSH FLUSH AFTER USING IV ACCESS ; Start 12/07/16 at 22:00 Sodium Chloride (NS Flush) 2 ml BID IV FLUSH Last administered on 12/12/16 08: 04; Start 12/08/16 at 09:00 Acetaminophen (Tylenol) 650 mg Q4H PRN PO TEMP > 100.4; Start 12/07/16 at 22:00 Ondansetron HCl (Zofran Inj) 4 mg Q6H PRN IVP NAUSEA OR VOMITING; Start at 22:00 Enoxaparin Sodium (Lovenox Inj) 40 mg Q24H SQ Last administered on 12/09/16 22 :52; Start 12/07/16 at 22:00; Status Hold Acetaminophen (Tylenol) 650 mg Q6H PRN PO PAIN SCALE 1 TO 2; Start 12/07/16 at 22:00 Magnesium Hydroxide 30 ml 30 ml Q12H PRN PO MILD - MODERATE CONSTIPATION; Start 12/07/16 at 22:00 Ceftriaxone Sodium 1000 mg/ Sodium Chloride 100 ml @ 200 mls/hr Q24H IV Last administered on 12/09/16 08:46; Start 12/08/16 at 09:00; Stop 12/09/16 at 23:43 ; Status DC Pharmacy Profile Note 0 ml @ 0 mls/hr UNSCH OTHER ; Start 12/07/16 at 22:00; Stop 12/09/16 at 23:43; Status DC Vancomycin HCl/ Sodium Chloride (Vancomycin Inj/ NS 250 ml Inj) 262.5 ml @ 262.5 mls/ hr Q24H IV ; Start 12/08/16 at 09:00; Status UNV Lactobacillus Acidophilus 1 tab 1 tab Q12HR PO Last administered on 12/12/16 08:04; Start 12/08/16 at 09:00 Vancomycin HCl/ Sodium Chloride (Vancomycin Inj/ NS 250 ml Inj) 262.5 ml @ 250 mls/hr Q12H IV Last administered on 12/08/16 08:18; Start 12/08/16 at 08:00; Stop 12/08/16 at 10:27; Status DC Miscellaneous Information SPECIFIC LAB TO BE DRAWN:VANCOMYCIN TROUGH DATE TO... ONCE ONCE .XX Last administered on 12/09/16 08:10; Start 12/09/16 at 07:45; Stop 12/09/16 at 07:46; Status DC Diphenhydramine HCl 50 mg 50 mg HS PRN PO INSOMNIA Last administered on 20:06; Start 12/07/16 at 23:15 Vancomycin HCl/ Sodium Chloride (Vancomycin Inj/ NS 250 ml Inj) 250 ml @ 250 mls/hr Q8H IV Last administered on 12/09/16 08:45; Start 12/08/16 at 16:00; Stop 12/09/16 at 10:51; Status DC Ibuprofen 400 mg 400 mg Q8H PRN PO pain>2 Last administered on 12/12/16 09:24 ; Start 12/08/16 at 14:15 Vancomycin HCl/ Sodium Chloride (Vancomycin Inj/ NS 250 ml Inj) 262.5 ml @ 250 mls/hr Q8H IV Last administered on 12/09/16 17:36; Start 12/09/16 at 17:00; Stop 12/09/16 at 23:43; Status DC Miscellaneous Information SPECIFIC LAB TO BE DRAWN:VANCO TROUGH DATE TO... ONCE ONCE .XX ; Start 12/10/16 at 08:45; Stop 12/10/16 at 08:46; Status Cancel Cefazolin Sodium/ Dextrose 50 ml @ 100 mls/hr Q8H IV Last administered on 12/12 08:05; Start 12/10/16 at 00:00 Lactated Ringer's 1,000 ml @ 30 mls/hr Q24H PRN IV SEE LABEL COMMENTS; Start at 08:15; Stop 12/14/16 at 08:14 Sodium Chloride (NS 500 ml Inj) 500 ml @ 30 mls/hr [id number] PRN IV SEE LABEL COMMENTS; Start 12/11/16 at 08:15; Stop 12/14/16 at 08:14 Metoprolol Tartrate (Lopressor) 25 mg YARN WASHER PRN PO SEE LABEL COMMENTS; Start 12/11/16 at 08:15; Stop 12/14/16 at 08:14 Povidone Iodine (Betadine 5% Antisepsis Kit) 1 applic YARN WASHER PRN EACH NARE SEE LABEL COMMENTS; Start 12/11/16 at 08:15; Stop 12/14/16 at 08:14 Chlorhexidine Gluconate (Chlorhexidine 2% Cloth) 3 pack YARN WASHER PRN TOPICAL SEE LABEL COMMENTS; Start 12/11/16 at 08:15; Stop 12/14/16 at 08:14 Insulin Human Regular (NovoLIN R INJ) See Protocol Table ... YARN WASHER PRN SQ SEE PROTOCOL TABLE; Start 12/11/16 at 08:15; Stop 12/14/16 at 08:14 Lorazepam (Ativan) 0.5 mg Q8H PRN PO anxiety Last administered on 12/12/16t 09: 23; Start 12/11/16 at 14:00 A/P Problem List: (1) Sepsis ICD Code: A41.9 Status: Acute (2) Gram-positive bacteremia ICD Code: R78.81 Status: Acute (3) Bilateral pneumonia ICD Code: J18.9 Status: Acute (4) IVDU (intravenous drug user) ICD Code: F19.90 Status: Acute Assessment and Plan 26-year-old female with Sepsis: Meets sepsis criteria; Heart rate over 90, RR > 20 or PaCO2 < 32, Infect source susp/known (lungs). Status post Rocephin and vancomycin; currently on Ancef 2 g every 8 hours IV; continue to monitor cultures Community acquired bacterial pneumonia Chest x-ray with finding of bilateral pulmonary infiltrate Continue with above antibiotic including Ancef Sputum cultures negative. Hemoptysis This as happening for month. Will consult general utility machine operator to see if they recommend any further treatment. This is most likely due to patient's pneumonia. MSSA bacteremia Continue current antibiotic including Ancef 2 g IV every 8 2-D echo noted however per cardiology "The pulmonary valve is not well visualized. I cannot rule out a mass or lesion on valve versus artifact" KALIN showed vegetation in the tricuspid valve. Patient will need to be treated for endocarditis. Repeated blood cultures on 12/11 negative so far. Endocarditis Patient on Ancef. Pending blood cultures to be negative. Infectious disease following. IVDU UDS positive for cocaine Counseled to quit KALIN pending Back pain Check lumbar CT with finding of Mild asymmetric disc bulge at the L5-S1 level . Continue ibuprofen when necessary Patient stated that pain is controlled resolved. DVT prophylaxis: Bilateral SCDs Discharge Planning Patient will need long-term IV antibiotics due to endocarditis. Elsa Conte MD Dec 12, 2016 13:50
--- NOTE | 2016-12-12 20:21 | MB ---
cc: Estefani TERRAZAS DATE OF CONSULTATION 12/12/16 HISTORY Ms. Zee is a 26-year-old white female who has had pneumonia recently, was treated with two courses of outpatient antibiotics and during that time had rather significant hemoptysis based on her history. She came into the hospital on December 08 because she had a recurrent fever, although, her cough and hemoptysis had almost resolved. Chest x-ray revealed basilar infiltrates bilaterally. I am asked to see her because she had another scant episode of hemoptysis earlier today. Since coming into the hospital she has been found to have staph aureus septicemia and a KALIN performed on the 11 of December reveals a large tricuspid vegetation. It is very probable she is having septic pulmonary emboli as the cause of her persistent fever and the prior hemoptysis and the scant hemoptysis today. She is in no pain. She is not particularly short of breath. She has a history of IV drug abuse, although, she says that she has had no IV drugs for 3 years but unfortunately she does have a prior smoking history as well and has used cocaine by inhalation recently. Not smoking tobacco currently but using an E-cigarette. PAST MEDICAL HISTORY No other significant medical illnesses or prior surgeries. FAMILY HISTORY Positive for diabetes and a grandmother had lung cancer. Parents are both alive and well. SOCIAL HISTORY Currently living with her grandparents. No alcohol use. Smoking and drug use noted above. ALLERGIES NONE KNOWN. MEDICATIONS Reviewed in the EMR. REVIEW OF SYSTEMS Other than that noted above no nausea, vomiting, abdominal pain. No increased swelling in her legs. PHYSICAL EXAMINATION GENERAL: No distress at rest. VITAL SIGNS: Temperature is 97, heart rate is 110-115 regular, respirations are 18, sat is 95% on room air. HEENT: Sclerae anicteric. NECK: No adenopathy in the neck, supraclavicular region and her chest is actually clear. LUNGS: No wheezes, rales or congestion. CARDIOVASCULAR: Soft systolic murmur. No audible S3. ABDOMEN: Abdomen is soft. EXTREMITIES: No peripheral edema or calf tenderness. No cyanosis or clubbing. ASSESSMENT/PLAN Ms. Zee presents with recurrent fever, prior history within the last 2 weeks of pneumonia treated as an outpatient that was associated with hemoptysis, that seems to have calmed down. She had one small episode of blood mixed with mucus today. It appears that she probably has septic emboli at the cause of this infection and fever. Infectious diseases is following her. I will do a CT scan of her thorax to better evaluate these infiltrates on chest x-ray. Further diagnostic and/or therapeutic intervention will depend on her ongoing clinical course. R. MD TRI Lindsey/OMAR /5:16 PM /8:08 PM
--- NOTE | 2016-12-12 20:21 | RADRPT ---
EXAM DATE/TIME: 12/12/2016 20:03 [facility] COMPARISON: CHEST SINGLE AP, December 07, 2016, 17:34. INDICATIONS : Short of breath, pneumonia. RADIATION DOSE: 5.10 CTDIvol (mGy) MEDICAL HISTORY : Anxiety. SURGICAL HISTORY : None. ENCOUNTER: Initial ACUITY: 1 day PAIN SCALE: 4/10 LOCATION: Bilateral chest TECHNIQUE: Volumetric scanning of the chest was performed. Using automated exposure control and adjustment of t he mA and/or kV according to patient size, radiation dose was kept as low as reasonably achievable to obtain optimal diagnostic quality images. DICOM format image data is available electronically for r eview and comparison. Follow-up recommendations for detected pulmonary nodules are based at a minimum on nodule size and pa tient risk factors according to Fleischner Society Guidelines. FINDINGS: LUNGS: Multiple irregular masses and areas of consolidation are seen many of which are clearly cavitary. The largest area of involvement is the right lower lobe. PLEURAE: There is a minimal left pleural effusion. A significant right effusion is not seen. MEDIASTINUM: There is a 1.5 x 0 point centimeter lymph node seen in the precarinal region. There is prominence of the hilar regions bilaterally concerning for adenopathy. AXILLAE: Within normal limits. No lymphadenopathy. MUSCULOSKELETAL: Within normal limits for patient age. MISCELLANEOUS: The visualized upper abdominal organs demonstrate no acute abnormality. CONCLUSION: Numerous bilateral masses and focal areas of consolidation with cavitary change concerning for septic emboli. Chuy Mckeon MD on December 12, 2016 at 20:15 Board Certified Radiologist. This report was verified electronically.
[2016-12-13] VITALS (8 sets, daily range): BP systolic 109–119; BP diastolic 67–70; PULSE 88–112; RESP 16–20; TEMP 97.8–98.8; O2SAT 98–100
[2016-12-13] MEDS: LORazepam 0.5 MG TAB PO PRN ×3 (02:03→17:58)
[2016-12-13] MEDS: IBUPROFEN 400 MG TAB PO PRN ×3 (02:05→17:58)
[2016-12-13] MEDS: ceFAZolin 2 GM PREMIX 50 ML IV SCH ×3 (08:00→23:56)
[2016-12-13] MEDS: SODIUM CHLORIDE 0.9% FLUSH 10 ML FLUSH IV FLUSH SCH ×2 (09:00→21:48)
[2016-12-13] MEDS: LACTOBACILLUS ACIDOPHILUS TAB PO SCH ×2 (10:09→21:47)
[2016-12-13] MEDS: methylPREDNISolone SOD SUCC 40 MG/1 ML VIAL IV PUSH SCH ×2 (13:30→21:47)
--- NOTE | 2016-12-13 13:30 | HHI.PR ---
Subjective Remarks Follow-up for bilateral pneumonia, hemoptysis, endocarditis Patient denies any hemoptysis and she was last seen. Deny any shortness of breathing or cough. Patient stated her only concern is her lower back pain. She stated lower back pain started about a month ago. She stated that she had a CT scan done which showed bulging disc. Patient stated that nothing was done in regards to that. She is concerned that her pains will not be control and that she'll have difficulty with this at home. Otherwise she remains afebrile. Objective Vitals Vital Signs Date Time Temp Pulse Resp B/P Pulse Ox O2 Delivery O2 Flow Rate FiO2 12/13/16 12:10 Room Air 12/13/16 12:00 98.8 100 18 109/68 98 12/13/16 10:29 88 12/13/16 08:40 Room Air 12/13/16 08:00 97.8 104 18 112/67 98 12/13/16 05:00 98.6 112 16 119/69 98 12/13/16 04:00 Room Air 12/13/16 03:32 18 12/13/16 00:05 97.8 107 20 113/70 100 12/13/16 00:00 Room Air 12/12/16 21:05 99.4 115 16 106/57 96 12/12/16 20:35 Room Air 12/12/16 20:00 109 12/12/16 16:00 98.2 117 18 119/75 98 12/12/16 16:00 Room Air I/O 12/12/16 12/12/16 12/12/16 12/13/16 12/13/16 12/13/16 07:00 15:00 23:00 07:00 15:00 23:00 Intake Total 536 ml 530 ml 360 ml 296 ml Output Total 850 ml 850 ml 1000 ml 800 ml Balance -314 ml -320 ml -640 ml -504 ml Intake Oral 480 ml 480 ml 360 ml 240 ml IV Total 56 ml 50 ml 56 ml Output Urine Total 850 ml 850 ml 1000 ml 800 ml # Bowel Movements 0 0 0 Result Diagram: 12/11/16 1650 12/11/16 1650 Imaging Last Impressions Chest CT 12/12/16 0000 Signed Impressions: Service Date/Time: Monday, December 12, 2016 20:03 - CONCLUSION: Numerous bilateral masses and focal areas of consolidation with cavitary change concerning for septic emboli. Chuy Mckeon MD Lumbar Spine CT 12/09/16 1050 Signed Impressions: Service Date/Time: Friday, December 09, 2016 11:07 - CONCLUSION: 1. Mild asymmetric disc bulge at the L5-S1 level an apparent mild mass effect on the left S1 nerve root which is displaced posteriorly several millimeters. 2. Straightening of the normal lumbar lordosis. Kunal Rachel MD Objective Remarks GENERAL: In no acute distress. SKIN: Warm and dry. HEAD: Normocephalic. EYES: No scleral icterus. No injection or drainage. NECK: Supple, trachea midline. No JVD or lymphadenopathy. CARDIOVASCULAR: Regular rate and rhythm without murmurs, gallops, or rubs. RESPIRATORY: Breath sounds equal bilaterally. No accessory muscle use. GASTROINTESTINAL: Abdomen soft, non-tender, nondistended. Medications and IVs Current Medications Sodium Chloride (NS 1000 ml Inj) 1,000 ml @ 100 mls/hr Q10H IV Last administered on 12/09/16 08:44; Start 12/07/16 at 22:00; Stop 12/09/16 at 18:33 ; Status DC Sodium Chloride (NS Flush) 2 ml UNSCH PRN IV FLUSH FLUSH AFTER USING IV ACCESS ; Start 12/07/16 at 22:00 Sodium Chloride (NS Flush) 2 ml BID IV FLUSH Last administered on 12/13/16 09: 00; Start 12/08/16 at 09:00 Acetaminophen (Tylenol) 650 mg Q4H PRN PO TEMP > 100.4; Start 12/07/16 at 22:00 Ondansetron HCl (Zofran Inj) 4 mg Q6H PRN IVP NAUSEA OR VOMITING; Start at 22:00 Enoxaparin Sodium (Lovenox Inj) 40 mg Q24H SQ Last administered on 12/09/16 22 :52; Start 12/07/16 at 22:00; Status Hold Acetaminophen (Tylenol) 650 mg Q6H PRN PO PAIN SCALE 1 TO 2; Start 12/07/16 at 22:00 Magnesium Hydroxide 30 ml 30 ml Q12H PRN PO MILD - MODERATE CONSTIPATION; Start 12/07/16 at 22:00 Ceftriaxone Sodium 1000 mg/ Sodium Chloride 100 ml @ 200 mls/hr Q24H IV Last administered on 12/09/16 08:46; Start 12/08/16 at 09:00; Stop 12/09/16 at 23:43 ; Status DC Pharmacy Profile Note 0 ml @ 0 mls/hr UNSCH OTHER ; Start 12/07/16 at 22:00; Stop 12/09/16 at 23:43; Status DC Vancomycin HCl/ Sodium Chloride (Vancomycin Inj/ NS 250 ml Inj) 262.5 ml @ 262.5 mls/ hr Q24H IV ; Start 12/08/16 at 09:00; Status UNV Lactobacillus Acidophilus 1 tab 1 tab Q12HR PO Last administered on 12/13/16 10:09; Start 12/08/16 at 09:00 Vancomycin HCl/ Sodium Chloride (Vancomycin Inj/ NS 250 ml Inj) 262.5 ml @ 250 mls/hr Q12H IV Last administered on 12/08/16 08:18; Start 12/08/16 at 08:00; Stop 12/08/16 at 10:27; Status DC Miscellaneous Information SPECIFIC LAB TO BE DRAWN:VANCOMYCIN TROUGH DATE TO... ONCE ONCE .XX Last administered on 12/09/16 08:10; Start 12/09/16 at 07:45; Stop 12/09/16 at 07:46; Status DC Diphenhydramine HCl 50 mg 50 mg HS PRN PO INSOMNIA Last administered on 20:06; Start 12/07/16 at 23:15 Vancomycin HCl/ Sodium Chloride (Vancomycin Inj/ NS 250 ml Inj) 250 ml @ 250 mls/hr Q8H IV Last administered on 12/09/16 08:45; Start 12/08/16 at 16:00; Stop 12/09/16 at 10:51; Status DC Ibuprofen 400 mg 400 mg Q8H PRN PO pain>2 Last administered on 12/13/16 10:09 ; Start 12/08/16 at 14:15 Vancomycin HCl/ Sodium Chloride (Vancomycin Inj/ NS 250 ml Inj) 262.5 ml @ 250 mls/hr Q8H IV Last administered on 12/09/16 17:36; Start 12/09/16 at 17:00; Stop 12/09/16 at 23:43; Status DC Miscellaneous Information SPECIFIC LAB TO BE DRAWN:VANCO TROUGH DATE TO... ONCE ONCE .XX ; Start 12/10/16 at 08:45; Stop 12/10/16 at 08:46; Status Cancel Cefazolin Sodium/ Dextrose 50 ml @ 100 mls/hr Q8H IV Last administered on 12/13 08:00; Start 12/10/16 at 00:00 Lactated Ringer's 1,000 ml @ 30 mls/hr Q24H PRN IV SEE LABEL COMMENTS; Start at 08:15; Stop 12/14/16 at 08:14 Sodium Chloride (NS 500 ml Inj) 500 ml @ 30 mls/hr [id number] PRN IV SEE LABEL COMMENTS; Start 12/11/16 at 08:15; Stop 12/14/16 at 08:14 Metoprolol Tartrate (Lopressor) 25 mg PERSONNEL SCHEDULER PRN PO SEE LABEL COMMENTS; Start 12/11/16 at 08:15; Stop 12/14/16 at 08:14 Povidone Iodine (Betadine 5% Antisepsis Kit) 1 applic PERSONNEL SCHEDULER PRN EACH NARE SEE LABEL COMMENTS; Start 12/11/16 at 08:15; Stop 12/14/16 at 08:14 Chlorhexidine Gluconate (Chlorhexidine 2% Cloth) 3 pack PERSONNEL SCHEDULER PRN TOPICAL SEE LABEL COMMENTS; Start 12/11/16 at 08:15; Stop 12/14/16 at 08:14 Insulin Human Regular (NovoLIN R INJ) See Protocol Table ... PERSONNEL SCHEDULER PRN SQ SEE PROTOCOL TABLE; Start 12/11/16 at 08:15; Stop 12/14/16 at 08:14 Lorazepam (Ativan) 0.5 mg Q8H PRN PO anxiety Last administered on 12/13/16t 10: 09; Start 12/11/16 at 14:00 A/P Problem List: (1) Sepsis ICD Code: A41.9 Status: Acute (2) Gram-positive bacteremia ICD Code: R78.81 Status: Acute (3) Bilateral pneumonia ICD Code: J18.9 Status: Acute (4) IVDU (intravenous drug user) ICD Code: F19.90 Status: Acute Assessment and Plan 26-year-old female with Sepsis: Meets sepsis criteria; Heart rate over 90, RR > 20 or PaCO2 < 32, Infect source susp/known (lungs). Status post Rocephin and vancomycin; currently on Ancef 2 g every 8 hours IV; continue to monitor cultures Community acquired bacterial pneumonia Chest x-ray with finding of bilateral pulmonary infiltrate Continue with above antibiotic including Ancef Sputum cultures negative. Hemoptysis This as happening for month. Numerologist consulted appreciate consult. CT scan of thoracic show septic emboli. Symptoms improving. Continue current regimen. MSSA bacteremia Continue current antibiotic including Ancef 2 g IV every 8 2-D echo noted however per cardiology "The pulmonary valve is not well visualized. I cannot rule out a mass or lesion on valve versus artifact" KALIN showed vegetation in the tricuspid valve. Patient will need to be treated for endocarditis. Repeated blood cultures on 12/11 negative so far. Endocarditis Patient on Ancef. Pending blood culture so far negative. Infectious disease following. IVDU UDS positive for cocaine Counseled to quit Back pain Check lumbar CT with finding of Mild asymmetric disc bulge at the L5-S1 level . Continue ibuprofen when necessary Patient stated that pain is controlled resolved. DVT prophylaxis: Bilateral SCDs Discharge Planning Patient will need long-term IV antibiotics due to endocarditis. Elsa Conte MD Dec 13, 2016 13:29
[2016-12-13] MEDS ORDERED: PILL SPLITTER OTHER PRN (14:00)
[2016-12-13] MEDS: LIDOCAINE HCL 5% PATCH T-DERMAL SCH (14:40)
[2016-12-13] MEDS: CYCLOBENZAPRINE HCL 10 MG TAB PO SCH ×2 (14:40→21:47)
[2016-12-14] VITALS (7 sets, daily range): BP systolic 102–119; BP diastolic 63–73; PULSE 93–115; RESP 16–18; TEMP 97.2–98.5; O2SAT 93–99
[2016-12-14] MEDS: LORazepam 0.5 MG TAB PO PRN ×3 (04:41→18:18)
[2016-12-14] MEDS: IBUPROFEN 400 MG TAB PO PRN ×3 (04:42→18:20)
[2016-12-14] MEDS: CYCLOBENZAPRINE HCL 10 MG TAB PO SCH ×3 (05:42→21:18)
[2016-12-14] MEDS: LACTOBACILLUS ACIDOPHILUS TAB PO SCH ×2 (09:51→21:18)
[2016-12-14] MEDS: LIDOCAINE HCL 5% PATCH T-DERMAL SCH (09:52)
[2016-12-14] MEDS: SODIUM CHLORIDE 0.9% FLUSH 10 ML FLUSH IV FLUSH SCH ×2 (09:53→21:19)
[2016-12-14] MEDS: methylPREDNISolone SOD SUCC 40 MG/1 ML VIAL IV PUSH SCH ×2 (09:53→21:19)
[2016-12-14] MEDS: ceFAZolin 2 GM PREMIX 50 ML IV SCH ×3 (09:53→23:46)
--- NOTE | 2016-12-14 13:45 | HHI.PR ---
Subjective Remarks Follow-up for endocarditis and lower back pain Patient stated that her lower back pain is better controlled. Should no complaints. She is very anxious to go home. She remains afebrile. She denies any hemoptysis Dealt with patient's nurse and case management. Objective Vitals Vital Signs Date Time Temp Pulse Resp B/P Pulse Ox O2 Delivery O2 Flow Rate FiO2 12/14/16 12:23 Room Air 12/14/16 12:00 97.8 99 18 110/64 95 12/14/16 08:00 100 12/14/16 08:00 97.8 94 18 106/65 93 12/14/16 08:00 Room Air 12/14/16 04:00 97.7 99 16 110/73 99 12/14/16 04:00 Room Air 12/14/16 00:00 Room Air 12/14/16 00:00 97.2 93 16 102/64 96 12/13/16 20:00 100 12/13/16 20:00 Room Air 12/13/16 20:00 98.1 107 16 115/68 99 12/13/16 16:10 Room Air 12/13/16 16:00 98.0 110 18 113/67 99 12/13/16 15:04 96 I/O 12/13/16 12/13/16 12/13/16 12/14/16 12/14/16 12/14/16 07:00 15:00 23:00 07:00 15:00 23:00 Intake Total 296 ml 530 ml 480 ml 240 ml Output Total 800 ml 1000 ml 1000 ml Balance -504 ml 530 ml -520 ml -760 ml Intake Oral 240 ml 480 ml 480 ml 240 ml IV Total 56 ml 50 ml Output Urine Total 800 ml 1000 ml 1000 ml # Voids 2 # Bowel Movements 0 1 0 0 Result Diagram: 12/11/16 1650 12/11/160 Objective Remarks GENERAL: In no acute distress. SKIN: Warm and dry. HEAD: Normocephalic. EYES: No scleral icterus. No injection or drainage. NECK: Supple, trachea midline. No JVD or lymphadenopathy. CARDIOVASCULAR: Regular rate and rhythm without murmurs, gallops, or rubs. RESPIRATORY: Breath sounds equal bilaterally. No accessory muscle use. GASTROINTESTINAL: Abdomen soft, non-tender, nondistended. Medications and IVs Current Medications Sodium Chloride (NS 1000 ml Inj) 1,000 ml @ 100 mls/hr Q10H IV Last administered on 12/09/16 08:44; Start 12/07/16 at 22:00; Stop 12/09/16 at 18:33 ; Status DC Sodium Chloride (NS Flush) 2 ml UNSCH PRN IV FLUSH FLUSH AFTER USING IV ACCESS ; Start 12/07/16 at 22:00 Sodium Chloride (NS Flush) 2 ml BID IV FLUSH Last administered on 12/14/16 09: 53; Start 12/08/16 at 09:00 Acetaminophen (Tylenol) 650 mg Q4H PRN PO TEMP > 100.4; Start 12/07/16 at 22:00 Ondansetron HCl (Zofran Inj) 4 mg Q6H PRN IVP NAUSEA OR VOMITING; Start at 22:00 Enoxaparin Sodium (Lovenox Inj) 40 mg Q24H SQ Last administered on 12/09/16 22 :52; Start 12/07/16 at 22:00; Status Hold Acetaminophen (Tylenol) 650 mg Q6H PRN PO PAIN SCALE 1 TO 2; Start 12/07/16 at 22:00 Magnesium Hydroxide 30 ml 30 ml Q12H PRN PO MILD - MODERATE CONSTIPATION; Start 12/07/16 at 22:00 Ceftriaxone Sodium 1000 mg/ Sodium Chloride 100 ml @ 200 mls/hr Q24H IV Last administered on 12/09/16 08:46; Start 12/08/16 at 09:00; Stop 12/09/16 at 23:43 ; Status DC Pharmacy Profile Note 0 ml @ 0 mls/hr UNSCH OTHER ; Start 12/07/16 at 22:00; Stop 12/09/16 at 23:43; Status DC Vancomycin HCl/ Sodium Chloride (Vancomycin Inj/ NS 250 ml Inj) 262.5 ml @ 262.5 mls/ hr Q24H IV ; Start 12/08/16 at 09:00; Status UNV Lactobacillus Acidophilus 1 tab 1 tab Q12HR PO Last administered on 12/14/16 09:51; Start 12/08/16 at 09:00 Vancomycin HCl/ Sodium Chloride (Vancomycin Inj/ NS 250 ml Inj) 262.5 ml @ 250 mls/hr Q12H IV Last administered on 12/08/16 08:18; Start 12/08/16 at 08:00; Stop 12/08/16 at 10:27; Status DC Miscellaneous Information SPECIFIC LAB TO BE DRAWN:VANCOMYCIN TROUGH DATE TO... ONCE ONCE .XX Last administered on 12/09/16 08:10; Start 12/09/16 at 07:45; Stop 12/09/16 at 07:46; Status DC Diphenhydramine HCl 50 mg 50 mg HS PRN PO INSOMNIA Last administered on 20:06; Start 12/07/16 at 23:15 Vancomycin HCl/ Sodium Chloride (Vancomycin Inj/ NS 250 ml Inj) 250 ml @ 250 mls/hr Q8H IV Last administered on 12/09/16 08:45; Start 12/08/16 at 16:00; Stop 12/09/16 at 10:51; Status DC Ibuprofen 400 mg 400 mg Q8H PRN PO pain>2 Last administered on 12/14/16 12:40 ; Start 12/08/16 at 14:15 Vancomycin HCl/ Sodium Chloride (Vancomycin Inj/ NS 250 ml Inj) 262.5 ml @ 250 mls/hr Q8H IV Last administered on 12/09/16 17:36; Start 12/09/16 at 17:00; Stop 12/09/16 at 23:43; Status DC Miscellaneous Information SPECIFIC LAB TO BE DRAWN:VANCO TROUGH DATE TO... ONCE ONCE .XX ; Start 12/10/16 at 08:45; Stop 12/10/16 at 08:46; Status Cancel Cefazolin Sodium/ Dextrose 50 ml @ 100 mls/hr Q8H IV Last administered on 12/14 09:53; Start 12/10/16 at 00:00 Lactated Ringer's 1,000 ml @ 30 mls/hr Q24H PRN IV SEE LABEL COMMENTS; Start at 08:15; Stop 12/14/16 at 08:14; Status DC Sodium Chloride (NS 500 ml Inj) 500 ml @ 30 mls/hr [id number] PRN IV SEE LABEL COMMENTS; Start 12/11/16 at 08:15; Stop 12/14/16 at 08:14; Status DC Metoprolol Tartrate (Lopressor) 25 mg COATER CARBON PAPER PRN PO SEE LABEL COMMENTS; Start 12/11/16 at 08:15; Stop 12/14/16 at 08:14; Status DC Povidone Iodine (Betadine 5% Antisepsis Kit) 1 applic COATER CARBON PAPER PRN EACH NARE SEE LABEL COMMENTS; Start 12/11/16 at 08:15; Stop 12/14/16 at 08:14; Status DC Chlorhexidine Gluconate (Chlorhexidine 2% Cloth) 3 pack COATER CARBON PAPER PRN TOPICAL SEE LABEL COMMENTS; Start 12/11/16 at 08:15; Stop 12/14/16 at 08:14; Status DC Insulin Human Regular (NovoLIN R INJ) See Protocol Table ... COATER CARBON PAPER PRN SQ SEE PROTOCOL TABLE; Start 12/11/16 at 08:15; Stop 12/14/16 at 08:14; Status DC Lorazepam (Ativan) 0.5 mg Q8H PRN PO anxiety Last administered on 12/14/16 12: 40; Start 12/11/16 at 14:00 Lidocaine HCl (Lidoderm 5% Patch.12 Hr) 1 patch DAILY T-DERMAL Last administered on 12/14/16 09:52; Start 12/13/16 at 13:30 Methylprednisolone Sodium Succinate (SoluMEDROL INJ) 40 mg Q12HR IV PUSH Last administered on 12/14/16 09:53; Start 12/13/16 at 13:30 Cyclobenzaprine HCl (Flexeril) 5 mg Q8HR PO Last administered on 12/14/16 05: 42; Start 12/13/16 at 14:00 Miscellaneous (Pill Splitter) 1 ea UNSCH PRN OTHER SEE LABEL COMMENTS; Start at 14:00 A/P Problem List: (1) Sepsis ICD Code: A41.9 Status: Acute (2) Gram-positive bacteremia ICD Code: R78.81 Status: Acute (3) Bilateral pneumonia ICD Code: J18.9 Status: Acute (4) IVDU (intravenous drug user) ICD Code: F19.90 Status: Acute Assessment and Plan 26-year-old female with Sepsis: Meets sepsis criteria; Heart rate over 90, RR > 20 or PaCO2 < 32, Infect source susp/known (lungs). Status post Rocephin and vancomycin; currently on Ancef 2 g every 8 hours IV; continue to monitor cultures Community acquired bacterial pneumonia Chest x-ray with finding of bilateral pulmonary infiltrate Continue with above antibiotic including Ancef Sputum cultures negative. Hemoptysis This as happening for month. Trim Machine Adjuster consulted appreciate consult. CT scan of thoracic show septic emboli. Symptoms improving. Continue current regimen. MSSA bacteremia Continue current antibiotic including Ancef 2 g IV every 8 2-D echo noted however per cardiology "The pulmonary valve is not well visualized. I cannot rule out a mass or lesion on valve versus artifact" KALIN showed vegetation in the tricuspid valve. Patient will need to be treated for endocarditis. Repeated blood cultures on 12/11 negative so far. Endocarditis Patient on Ancef. Pending blood culture so far negative. Infectious disease following. IVDU UDS positive for cocaine Counseled to quit Back pain Lumbar CT with finding of Mild asymmetric disc bulge at the L5-S1 level . Pain improved with Solu-Medrol, Lidoderm patch and Flexeril. DVT prophylaxis: Bilateral SCDs Discharge Planning Dealt with case management patient has no funding at the moment she is going through [facility]. She will need long-term IV antibiotics. Elsa Conte MD Dec 14, 2016 13:45
--- NOTE | 2016-12-14 19:22 | HHI.IDPN ---
Subjective Subjective Remarks no fever feeling better no hemoptysis today pt admits to use inhalatory cocain recently IV benadryl 3 mos ago and no heroine > 1 yr Antibiotics cefazoline Allergies: Coded Allergies: No Known Allergies (Unverified , 12/07/16) Objective . Vital Signs Date Time Temp Pulse Resp B/P Pulse Ox O2 Delivery O2 Flow Rate FiO2 12/14/16 16:16 Room Air 12/14/16 16:00 98.5 115 18 113/63 98 12/14/16 15:32 102 12/14/16 12:23 Room Air 12/14/16 12:00 97.8 99 18 110/64 95 12/14/16 08:00 100 12/14/16 08:00 97.8 94 18 106/65 93 12/14/16 08:00 Room Air 12/14/16 04:00 97.7 99 16 110/73 99 12/14/16 04:00 Room Air 12/14/16 00:00 Room Air 12/14/16 00:00 97.2 93 16 102/64 96 12/13/16 20:00 100 12/13/16 20:00 Room Air 12/13/16 20:00 98.1 107 16 115/68 99 12/13/16 12/13/16 12/14/16 14:59 22:59 06:59 Intake Total 530 ml 480 ml 240 ml Output Total 1000 ml 1000 ml Balance 530 ml -520 ml -760 ml Intake Oral 480 ml 480 ml 240 ml IV Total 50 ml Output Urine Total 1000 ml 1000 ml # Voids 2 # Bowel Movements 1 0 0 Imaging Last Impressions Lumbar Spine CT 12/09/16 1050 Signed Impressions: Service Date/Time: Friday, December 09, 2016 11:07 - CONCLUSION: 1. Mild asymmetric disc bulge at the L5-S1 level an apparent mild mass effect on the left S1 nerve root which is displaced posteriorly several millimeters. 2. Straightening of the normal lumbar lordosis. Kunal Rachel MD Physical Exam CONSTITUTIONAL/GENERAL: This is an adequately nourished patient, in no apparent distress. TUBES/LINES/DRAINS: SKIN: No jaundice, rashes, or lesions. CARDIOVASCULAR: Regular rate and rhythm without murmurs, gallops, or rubs. No JVD. Peripheral pulses symmetric. RESPIRATORY/CHEST: Symmetric, unlabored respirations. Clear to auscultation. GASTROINTESTINAL: Abdomen soft, non-tender, nondistended. No hepato-splenomegaly , or palpable masses. MUSCULOSKELETAL: Extremities without clubbing, cyanosis, or edema. NEUROLOGICAL: Awake and alert. Motor and sensory grossly within normal limits. Follows commands. Clear speech. Moves all extremities. PSYCHIATRIC: No obvious anxiety/depression. no apparent hallucinations or other psychotic thought process. 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
[2016-12-15] VITALS (8 sets, daily range): BP systolic 110–130; BP diastolic 55–85; PULSE 87–122; RESP 18–20; TEMP 95.6–98.2; O2SAT 96–98
[2016-12-15] MEDS: IBUPROFEN 400 MG TAB PO PRN ×4 (03:03→17:46)
[2016-12-15] MEDS: LORazepam 0.5 MG TAB PO PRN ×3 (03:03→17:46)
[2016-12-15] MEDS: CYCLOBENZAPRINE HCL 10 MG TAB PO SCH ×3 (06:41→20:45)
[2016-12-15] MEDS: LACTOBACILLUS ACIDOPHILUS TAB PO SCH ×2 (09:40→20:45)
[2016-12-15] MEDS: ceFAZolin 2 GM PREMIX 50 ML IV SCH ×2 (09:41→16:43)
[2016-12-15] MEDS: methylPREDNISolone SOD SUCC 40 MG/1 ML VIAL IV PUSH SCH (09:41)
[2016-12-15] MEDS: SODIUM CHLORIDE 0.9% FLUSH 10 ML FLUSH IV FLUSH SCH ×2 (09:41→20:46)
[2016-12-15] MEDS: LIDOCAINE HCL 5% PATCH T-DERMAL SCH (09:41)
[2016-12-15 11:41] LABS: TOTAL BILIRUBIN ADULT 0.4 MG/DL (0.2-1.0)
[2016-12-15 11:46] LABS: INDIRECT BILIRUBIN 0.2 MG/DL (0.0-0.8)
--- NOTE | 2016-12-15 15:45 | HHI.PR ---
Subjective Remarks Follow-up for hemoptysis, septic emboli, endocarditis, lower back pain Patient stated that lower back pain is controlled current regimen. She denies any episodes hemoptysis Patient very anxious to go home. She stated that she has not used any IV drugs for 3 years. She is asking if she can go home with outpatient treatment. Objective Vitals Vital Signs Date Time Temp Pulse Resp B/P Pulse Ox O2 Delivery O2 Flow Rate FiO2 12/15/16 12:00 95.6 87 20 129/84 97 12/15/16 08:00 97.5 91 20 110/55 97 12/15/16 05:11 101 12/15/16 05:11 Room Air 12/15/16 04:00 98.2 96 18 123/78 96 12/15/16 00:00 98.0 95 18 112/69 97 12/14/16 20:45 Room Air 12/14/16 20:00 98 12/14/16 20:00 98.0 112 16 119/66 97 12/14/16 16:16 Room Air 12/14/16 16:00 98.5 115 18 113/63 98 I/O 12/14/16 12/14/16 12/14/16 12/15/16 12/15/16 12/15/16 06:59 14:59 22:59 06:59 14:59 22:59 Intake Total 240 ml 50 ml 120 ml Output Total 1000 ml 240 ml Balance -760 ml 50 ml -120 ml Intake Oral 240 ml 120 ml IV Total 50 ml Output Urine Total 1000 ml 240 ml # Voids 2 # Bowel Movements 0 Result Diagram: 12/11/16 1650 12/11/16 1650 Objective Remarks GENERAL: In no acute distress. SKIN: Warm and dry. HEAD: Normocephalic. EYES: No scleral icterus. No injection or drainage. NECK: Supple, trachea midline. No JVD or lymphadenopathy. CARDIOVASCULAR: Regular rate and rhythm without murmurs, gallops, or rubs. RESPIRATORY: Breath sounds equal bilaterally. No accessory muscle use. GASTROINTESTINAL: Abdomen soft, non-tender, nondistended. Medications and IVs Current Medications Sodium Chloride (NS 1000 ml Inj) 1,000 ml @ 100 mls/hr Q10H IV Last administered on 12/09/16t 08:44; Start 12/07/16 at 22:00; Stop 12/09/16 at 18:33 ; Status DC Sodium Chloride (NS Flush) 2 ml UNSCH PRN IV FLUSH FLUSH AFTER USING IV ACCESS ; Start 12/07/16 at 22:00 Sodium Chloride (NS Flush) 2 ml BID IV FLUSH Last administered on 12/15/16 09: 41; Start 12/08/16 at 09:00 Acetaminophen (Tylenol) 650 mg Q4H PRN PO TEMP > 100.4; Start 12/07/16 at 22:00 Ondansetron HCl (Zofran Inj) 4 mg Q6H PRN IVP NAUSEA OR VOMITING; Start at 22:00 Enoxaparin Sodium (Lovenox Inj) 40 mg Q24H SQ Last administered on 12/09/16 22 :52; Start 12/07/16 at 22:00; Status Hold Acetaminophen (Tylenol) 650 mg Q6H PRN PO PAIN SCALE 1 TO 2; Start 12/07/16 at 22:00 Magnesium Hydroxide 30 ml 30 ml Q12H PRN PO MILD - MODERATE CONSTIPATION; Start 12/07/16 at 22:00 Ceftriaxone Sodium 1000 mg/ Sodium Chloride 100 ml @ 200 mls/hr Q24H IV Last administered on 12/09/16 08:46; Start 12/08/16 at 09:00; Stop 12/09/16 at 23:43 ; Status DC Pharmacy Profile Note 0 ml @ 0 mls/hr UNSCH OTHER ; Start 12/07/16 at 22:00; Stop 12/09/16 at 23:43; Status DC Vancomycin HCl/ Sodium Chloride (Vancomycin Inj/ NS 250 ml Inj) 262.5 ml @ 262.5 mls/ hr Q24H IV ; Start 12/08/16 at 09:00; Status UNV Lactobacillus Acidophilus 1 tab 1 tab Q12HR PO Last administered on 12/15/16 09:40; Start 12/08/16 at 09:00 Vancomycin HCl/ Sodium Chloride (Vancomycin Inj/ NS 250 ml Inj) 262.5 ml @ 250 mls/hr Q12H IV Last administered on 12/08/16 08:18; Start 12/08/16 at 08:00; Stop 12/08/16 at 10:27; Status DC Miscellaneous Information SPECIFIC LAB TO BE DRAWN:VANCOMYCIN TROUGH DATE TO... ONCE ONCE .XX Last administered on 12/09/16 08:10; Start 12/09/16 at 07:45; Stop 12/09/16 at 07:46; Status DC Diphenhydramine HCl 50 mg 50 mg HS PRN PO INSOMNIA Last administered on 20:06; Start 12/07/16 at 23:15 Vancomycin HCl/ Sodium Chloride (Vancomycin Inj/ NS 250 ml Inj) 250 ml @ 250 mls/hr Q8H IV Last administered on 12/09/16 08:45; Start 12/08/16 at 16:00; Stop 12/09/16 at 10:51; Status DC Ibuprofen 400 mg 400 mg Q8H PRN PO pain>2 Last administered on 12/15/16 10:33 ; Start 12/08/16 at 14:15 Vancomycin HCl/ Sodium Chloride (Vancomycin Inj/ NS 250 ml Inj) 262.5 ml @ 250 mls/hr Q8H IV Last administered on 12/09/16 17:36; Start 12/09/16 at 17:00; Stop 12/09/16 at 23:43; Status DC Miscellaneous Information SPECIFIC LAB TO BE DRAWN:VANCO TROUGH DATE TO... ONCE ONCE .XX ; Start 12/10/16 at 08:45; Stop 12/10/16 at 08:46; Status Cancel Cefazolin Sodium/ Dextrose 50 ml @ 100 mls/hr Q8H IV Last administered on 12/15 09:41; Start 12/10/16 at 00:00 Lactated Ringer's 1,000 ml @ 30 mls/hr Q24H PRN IV SEE LABEL COMMENTS; Start at 08:15; Stop 12/14/16 at 08:14; Status DC Sodium Chloride (NS 500 ml Inj) 500 ml @ 30 mls/hr [id number] PRN IV SEE LABEL COMMENTS; Start 12/11/16 at 08:15; Stop 12/14/16 at 08:14; Status DC Metoprolol Tartrate (Lopressor) 25 mg BLAST FURNACE TENDER PRN PO SEE LABEL COMMENTS; Start 12/11/16 at 08:15; Stop 12/14/16 at 08:14; Status DC Povidone Iodine (Betadine 5% Antisepsis Kit) 1 applic BLAST FURNACE TENDER PRN EACH NARE SEE LABEL COMMENTS; Start 12/11/16 at 08:15; Stop 12/14/16 at 08:14; Status DC Chlorhexidine Gluconate (Chlorhexidine 2% Cloth) 3 pack BLAST FURNACE TENDER PRN TOPICAL SEE LABEL COMMENTS; Start 12/11/16 at 08:15; Stop 12/14/16 at 08:14; Status DC Insulin Human Regular (NovoLIN R INJ) See Protocol Table ... BLAST FURNACE TENDER PRN SQ SEE PROTOCOL TABLE; Start 12/11/16 at 08:15; Stop 12/14/16 at 08:14; Status DC Lorazepam (Ativan) 0.5 mg Q8H PRN PO anxiety Last administered on 12/15/16 10: 32; Start 12/11/16 at 14:00 Lidocaine HCl (Lidoderm 5% Patch.12 Hr) 1 patch DAILY T-DERMAL Last administered on 12/15/16 09:41; Start 12/13/16 at 13:30 Methylprednisolone Sodium Succinate (SoluMEDROL INJ) 40 mg Q12HR IV PUSH Last administered on 12/15/16 09:41; Start 12/13/16 at 13:30 Cyclobenzaprine HCl (Flexeril) 5 mg Q8HR PO Last administered on 12/15/16 14: 51; Start 12/13/16 at 14:00 Miscellaneous (Pill Splitter) 1 ea UNSCH PRN OTHER SEE LABEL COMMENTS; Start at 14:00 A/P Problem List: (1) Sepsis ICD Code: A41.9 Status: Acute (2) Gram-positive bacteremia ICD Code: R78.81 Status: Acute (3) Bilateral pneumonia ICD Code: J18.9 Status: Acute (4) IVDU (intravenous drug user) ICD Code: F19.90 Status: Acute Assessment and Plan 26-year-old female with Sepsis: Meets sepsis criteria; Heart rate over 90, RR > 20 or PaCO2 < 32, Infect source susp/known (lungs). Status post Rocephin and vancomycin; currently on Ancef 2 g every 8 hours IV; continue to monitor cultures Community acquired bacterial pneumonia Chest x-ray with finding of bilateral pulmonary infiltrate Continue with above antibiotic including Ancef Sputum cultures negative. Hemoptysis This as happening for month. Community Outreach Coordinator consulted appreciate consult. CT scan of thoracic show septic emboli. Symptoms improving. Continue current regimen. MSSA bacteremia Continue current antibiotic including Ancef 2 g IV every 8 2-D echo noted however per cardiology "The pulmonary valve is not well visualized. I cannot rule out a mass or lesion on valve versus artifact" KALIN showed vegetation in the tricuspid valve. Patient will need to be treated for endocarditis. Repeated blood cultures on 12/11 negative so far. Endocarditis Patient on Ancef. Pending blood culture so far negative. Infectious disease following. IVDU UDS positive for cocaine Counseled to quit Back pain Lumbar CT with finding of Mild asymmetric disc bulge at the L5-S1 level . Pain improved with Solu-Medrol, Lidoderm patch and Flexeril. Will switch IV Solu-Medrol for oral prednisone. DVT prophylaxis: Bilateral SCDs Discharge Planning Dealt with case management patient has no funding at the moment she is going through [facility]. She will need long-term IV antibiotics. Elsa Conte MD Dec 15, 2016 15:45
[2016-12-15] MEDS: predniSONE 20 MG TAB PO SCH ×2 (16:45→20:45)
[2016-12-15] MEDS: diphenhydrAMINE HCL 50 MG CAP PO PRN (20:45)
[2016-12-16] VITALS (7 sets, daily range): BP systolic 112–122; BP diastolic 77–81; PULSE 78–100; RESP 16–20; TEMP 97.1–98.3; O2SAT 95–98
[2016-12-16] MEDS: ceFAZolin 2 GM PREMIX 50 ML IV SCH ×4 (00:10→23:15)
[2016-12-16] MEDS: IBUPROFEN 400 MG TAB PO PRN ×3 (03:30→21:10)
[2016-12-16] MEDS: LORazepam 0.5 MG TAB PO PRN ×3 (03:30→21:06)
[2016-12-16] MEDS: CYCLOBENZAPRINE HCL 10 MG TAB PO SCH ×3 (06:05→21:06)
[2016-12-16] MEDS: LIDOCAINE HCL 5% PATCH T-DERMAL SCH (09:00)
[2016-12-16] MEDS: predniSONE 20 MG TAB PO SCH ×2 (09:00→21:06)
[2016-12-16] MEDS: LACTOBACILLUS ACIDOPHILUS TAB PO SCH ×2 (09:00→21:06)
[2016-12-16] MEDS: SODIUM CHLORIDE 0.9% FLUSH 10 ML FLUSH IV FLUSH SCH ×2 (09:00→21:07)
--- NOTE | 2016-12-16 14:51 | HHI.PR ---
Subjective Remarks Follow-up for lower back pain, endocarditis, hemoptysis Patient has no complaints. Denies any hemoptysis. She also denies any shortness of breathing. Patient very anxious to go home. Pain is controlled. Objective Vitals Vital Signs Date Time Temp Pulse Resp B/P (MAP) Pulse Ox O2 Delivery O2 Flow Rate FiO2 12/16/16 04:00 97.9 98 16 117/80 (92) 98 12/16/16 04:00 Room Air 12/16/16 00:00 97.1 78 18 117/81 (93) 96 12/16/16 00:00 Room Air 12/15/16 20:08 122 12/15/16 20:00 98.0 109 18 118/80 (93) 96 12/15/16 20:00 Room Air I/O 12/15/16 12/15/16 12/15/16 12/16/16 12/16/16 12/16/16 07:00 15:00 23:00 07:00 15:00 23:00 Intake Total 120 ml 480 ml 50 ml Output Total 240 ml 1000 ml 300 ml Balance -120 ml -520 ml -250 ml Intake Oral 120 ml 480 ml IV Total 50 ml Output Urine Total 240 ml 1000 ml 300 ml # Voids 2 8 Objective Remarks GENERAL: In no acute distress. SKIN: Warm and dry. HEAD: Normocephalic. EYES: No scleral icterus. No injection or drainage. NECK: Supple, trachea midline. No JVD or lymphadenopathy. CARDIOVASCULAR: Regular rate and rhythm without murmurs, gallops, or rubs. RESPIRATORY: Breath sounds equal bilaterally. No accessory muscle use. GASTROINTESTINAL: Abdomen soft, non-tender, nondistended. Medications and IVs Current Medications Sodium Chloride 1,000 ml @ 100 mls/hr Q10H IV Last administered on 12/09/16 08:44; Start 12/07/16 at 22:00; Stop 12/09/16 at 18:33; Status DC Sodium Chloride (NS Flush) 2 ml UNSCH PRN IV FLUSH FLUSH AFTER USING IV ACCESS ; Start 12/07/16 at 22:00 Sodium Chloride (NS Flush) 2 ml BID IV FLUSH Last administered on 12/15/16 20: 46; Start 12/08/16 at 09:00 Acetaminophen (Tylenol) 650 mg Q4H PRN PO TEMP > 100.4; Start 12/07/16 at 22:00 Ondansetron HCl (Zofran Inj) 4 mg Q6H PRN IVP NAUSEA OR VOMITING; Start at 22:00 Enoxaparin Sodium (Lovenox Inj) 40 mg Q24H SQ Last administered on 12/09/16 22 :52; Start 12/07/16 at 22:00; Status Future Hold Acetaminophen (Tylenol) 650 mg Q6H PRN PO PAIN SCALE 1 TO 2; Start 12/07/16 at 22:00 Magnesium Hydroxide (Milk Of Magnesia Liq) 30 ml Q12H PRN PO MILD - MODERATE CONSTIPATION; Start 12/07/16 at 22:00 Ceftriaxone Sodium 1000 mg/ Sodium Chloride 100 ml @ 200 mls/hr Q24H IV Last administered on 12/09/16 08:46; Start 12/08/16 at 09:00; Stop 12/09/16 at 23:43 ; Status DC Pharmacy Profile Note 0 ml @ 0 mls/hr UNSCH OTHER ; Start 12/07/16 at 22:00; Stop 12/09/16 at 23:43; Status DC Vancomycin HCl 1250 mg/Sodium Chloride 262.5 ml @ 262.5 mls/ hr Q24H IV ; Start 12/08/16 at 09:00; Status UNV Lactobacillus Acidophilus (Lactinex) 1 tab Q12HR PO Last administered on 20:45; Start 12/08/16 at 09:00 Vancomycin HCl 1250 mg/Sodium Chloride 262.5 ml @ 250 mls/hr Q12H IV Last administered on 12/08/16 08:18; Start 12/08/16 at 08:00; Stop 12/08/16 at 10:27 ; Status DC Miscellaneous Information SPECIFIC LAB TO BE DRAWN:VANCOMYCIN TROUGH DATE TO... ONCE ONCE .XX Last administered on 12/09/16 08:10; Start 12/09/16 at 07:45; Stop 12/09/16 at 07:46; Status DC Diphenhydramine HCl (Benadryl) 50 mg HS PRN PO INSOMNIA Last administered on 20:45; Start 12/07/16 at 23:15 Vancomycin HCl 1000 mg/Sodium Chloride 250 ml @ 250 mls/hr Q8H IV Last administered on 12/09/16 08:45; Start 12/08/16 at 16:00; Stop 12/09/16 at 10:51 ; Status DC Ibuprofen (Motrin) 400 mg Q8H PRN PO pain>2 Last administered on 12/16/16 03: 30; Start 12/08/16 at 14:15 Vancomycin HCl 1250 mg/Sodium Chloride 262.5 ml @ 250 mls/hr Q8H IV Last administered on 12/09/16 17:36; Start 12/09/16 at 17:00; Stop 12/09/16 at 23:43 ; Status DC Miscellaneous Information SPECIFIC LAB TO BE DRAWN:VANCO TROUGH DATE TO... ONCE ONCE .XX ; Start 12/10/16 at 08:45; Stop 12/10/16 at 08:46; Status Cancel Cefazolin Sodium/ Dextrose 50 ml @ 100 mls/hr Q8H IV Last administered on 12/16 08:00; Start 12/10/16 at 00:00 Lactated Ringer's 1,000 ml @ 30 mls/hr Q24H PRN IV SEE LABEL COMMENTS; Start at 08:15; Stop 12/14/16 at 08:14; Status DC Sodium Chloride 500 ml @ 30 mls/hr [id number] PRN IV SEE LABEL COMMENTS; Start at 08:15; Stop 12/14/16 at 08:14; Status DC Metoprolol Tartrate (Lopressor) 25 mg GEOGRAPHIC INFORMATION SYSTEMS DIRECTOR PRN PO SEE LABEL COMMENTS; Start 12/11/16 at 08:15; Stop 12/14/16 at 08:14; Status DC Povidone Iodine (Betadine 5% Antisepsis Kit) 1 applic GEOGRAPHIC INFORMATION SYSTEMS DIRECTOR PRN EACH NARE SEE LABEL COMMENTS; Start 12/11/16 at 08:15; Stop 12/14/16 at 08:14; Status DC Chlorhexidine Gluconate (Chlorhexidine 2% Cloth) 3 pack GEOGRAPHIC INFORMATION SYSTEMS DIRECTOR PRN TOPICAL SEE LABEL COMMENTS; Start 12/11/16 at 08:15; Stop 12/14/16 at 08:14; Status DC Insulin Human Regular (NovoLIN R INJ) See Protocol Table ... GEOGRAPHIC INFORMATION SYSTEMS DIRECTOR PRN SQ SEE PROTOCOL TABLE; Start 12/11/16 at 08:15; Stop 12/14/16 at 08:14; Status DC Lorazepam (Ativan) 0.5 mg Q8H PRN PO anxiety Last administered on 12/16/16 03: 30; Start 12/11/16 at 14:00 Lidocaine HCl (Lidoderm 5% Patch.12 Hr) 1 patch DAILY T-DERMAL Last administered on 12/15/16 09:41; Start 12/13/16 at 13:30 Methylprednisolone Sodium Succinate (SoluMEDROL INJ) 40 mg Q12HR IV PUSH Last administered on 12/15/16 09:41; Start 12/13/16 at 13:30; Stop 12/15/16 at 15:47 ; Status DC Cyclobenzaprine HCl (Flexeril) 5 mg Q8HR PO Last administered on 12/16/16 06: 05; Start 12/13/16 at 14:00 Miscellaneous (Pill Splitter) 1 ea UNSCH PRN OTHER SEE LABEL COMMENTS; Start at 14:00 Prednisone (Deltasone) 20 mg BID PO Last administered on 12/15/16 20:45; Start 12/15/16 at 15:45 A/P Problem List: (1) Sepsis ICD Code: A41.9 - Sepsis, unspecified organism Status: Acute (2) Gram-positive bacteremia ICD Code: R78.81 - Bacteremia Status: Acute (3) Bilateral pneumonia ICD Code: J18.9 - Pneumonia, unspecified organism Status: Acute (4) IVDU (intravenous drug user) ICD Code: F19.90 - Other psychoactive substance use, unspecified, uncomplicated Status: Acute Assessment and Plan 26-year-old female with Sepsis: Meets sepsis criteria; Heart rate over 90, RR > 20 or PaCO2 < 32, Infect source susp/known (lungs). Status post Rocephin and vancomycin; currently on Ancef 2 g every 8 hours IV; continue to monitor cultures Community acquired bacterial pneumonia Chest x-ray with finding of bilateral pulmonary infiltrate Continue with above antibiotic including Ancef Sputum cultures negative. Hemoptysis 1 month. Manager Graphic consulted appreciate consult. CT scan of thoracic show septic emboli. Symptoms improving. Continue current regimen. MSSA bacteremia Continue current antibiotic including Ancef 2 g IV every 8 2-D echo noted however per cardiology "The pulmonary valve is not well visualized. I cannot rule out a mass or lesion on valve versus artifact" KALIN showed vegetation in the tricuspid valve. Patient will need to be treated for endocarditis. Repeated blood cultures on 12/[address] negative [address] Mosley secondary to IV drug use she recommend cefazoline vs dalvancin if pending pt's risk for using PICC for IVDA Endocarditis Patient on Ancef. Pending blood culture so far negative. Infectious disease following. IVDU UDS positive for cocaine Counseled to quit Back pain Lumbar CT with finding of Mild asymmetric disc bulge at the L5-S1 level . Pain improved with Solu-Medrol, Lidoderm patch and Flexeril. On prednisone. Will do a taper. DVT prophylaxis: Bilateral SCDs Discharge Planning Dealt with case management patient has no funding at the moment she is going through [facility]. She will need long-term IV antibiotics. Elsa Conte MD Dec 16, 2016 2:51 pm
[2016-12-17] VITALS (9 sets, daily range): BP systolic 121–126; BP diastolic 73–85; PULSE 73–106; RESP 17–20; TEMP 97.4–98.6; O2SAT 96–98
[2016-12-17] MEDS: CYCLOBENZAPRINE HCL 10 MG TAB PO SCH ×3 (05:08→22:25)
[2016-12-17] MEDS: LORazepam 0.5 MG TAB PO PRN ×3 (06:35→22:25)
[2016-12-17] MEDS: IBUPROFEN 400 MG TAB PO PRN ×3 (06:36→22:25)
[2016-12-17] MEDS: predniSONE 20 MG TAB PO SCH ×2 (08:21→20:38)
[2016-12-17] MEDS: LIDOCAINE HCL 5% PATCH T-DERMAL SCH (08:21)
[2016-12-17] MEDS: LACTOBACILLUS ACIDOPHILUS TAB PO SCH ×2 (08:21→20:38)
[2016-12-17] MEDS: ceFAZolin 2 GM PREMIX 50 ML IV SCH ×3 (08:21→23:16)
[2016-12-17] MEDS: SODIUM CHLORIDE 0.9% FLUSH 10 ML FLUSH IV FLUSH SCH ×2 (08:22→20:39)
--- NOTE | 2016-12-17 12:28 | HHI.PR ---
Subjective Remarks Follow-up of endocarditis/MSSA bacteremia 12/17/16-patient seen and examined, only complains of back pain otherwise stable and afebrile. Otherwise stable Objective Vitals Vital Signs Date Time Temp Pulse Resp B/P (MAP) Pulse Ox O2 Delivery O2 Flow Rate FiO2 12/17/16 12:00 Room Air 12/17/16 12:00 97.5 85 17 125/84 (98) 97 12/17/16 08:00 Room Air 12/17/16 08:00 98.6 106 17 121/73 (89) 96 12/17/16 07:52 76 12/17/16 04:00 97.7 73 20 122/85 (97) 98 12/17/16 00:00 98.1 92 20 122/82 (95) 97 12/16/16 22:42 18 12/16/16 21:05 Room Air 12/16/16 20:00 98.2 90 20 122/77 (92) 97 12/16/16 19:36 80 12/16/16 17:19 100 12/16/16 16:04 98.3 85 16 112/80 (91) 95 I/O 12/16/16 12/16/16 12/16/16 12/17/16 12/17/16 12/17/16 07:00 15:00 23:00 07:00 15:00 23:00 Intake Total 50 ml 470 ml 1052 ml 50 ml Output Total 300 ml Balance -250 ml 470 ml 1052 ml 50 ml Intake Oral 420 ml 950 ml IV Total 50 ml 50 ml 102 ml 50 ml Output Urine Total 300 ml # Voids 5 2 # Bowel Movements 1 Imaging Last Impressions Chest CT 12/12/16 0000 Signed Impressions: Service Date/Time: Monday, December 12, 2016 20:03 - CONCLUSION: Numerous bilateral masses and focal areas of consolidation with cavitary change concerning for septic emboli. Chuy Mckeon MD Lumbar Spine CT 12/09/16 1050 Signed Impressions: Service Date/Time: Friday, December 09, 2016 11:07 - CONCLUSION: 1. Mild asymmetric disc bulge at the L5-S1 level an apparent mild mass effect on the left S1 nerve root which is displaced posteriorly several millimeters. 2. Straightening of the normal lumbar lordosis. Kunal Rachel MD Objective Remarks GENERAL: NAD SKIN: Warm and dry. HEAD: Normocephalic. EYES: No scleral icterus. No injection or drainage. NECK: Supple, trachea midline. No JVD or lymphadenopathy. CARDIOVASCULAR: Tachycardia Regular rate and rhythm without murmurs, gallops, or rubs. RESPIRATORY: Breath sounds equal bilaterally. No accessory muscle use. GASTROINTESTINAL: Abdomen soft, non-tender, nondistended. MUSCULOSKELETAL: No cyanosis, or edema. BACK: Nontender without obvious deformity. No CVA tenderness. A/P Problem List: (1) Endocarditis ICD Code: I38 - Endocarditis, valve unspecified (2) Gram-positive bacteremia ICD Code: R78.81 - Bacteremia Status: Acute (3) Sepsis ICD Code: A41.9 - Sepsis, unspecified organism Status: Resolved (4) Bilateral pneumonia ICD Code: J18.9 - Pneumonia, unspecified organism Status: Acute (5) IVDU (intravenous drug user) ICD Code: F19.90 - Other psychoactive substance use, unspecified, uncomplicated Status: Acute Assessment and Plan 26-year-old female with MSSA bacteremia Continue current antibiotic including Ancef 2 g IV every 8 2-D echo noted however per cardiology "The pulmonary valve is not well visualized. I cannot rule out a mass or lesion on valve versus artifact" KALIN showed vegetation in the tricuspid valve. Repeated blood cultures on 12/[address] Mosley secondary to IV drug use she recommend cefazoline vs dalvancin if pending pt's risk for using PICC for IVDA Endocarditis Patient on Ancef. Management per infectious disease specialist Sepsis: Resolved Community acquired bacterial pneumonia Chest x-ray with finding of bilateral pulmonary infiltrate Continue with above antibiotic including Ancef Sputum cultures negative. Hemoptysis 1 month. Director And Professor consulted appreciate consult. CT scan of thoracic show septic emboli. Symptoms improving. Continue current regimen. IVDU UDS positive for cocaine Counseled to quit Back pain Lumbar CT with finding of Mild asymmetric disc bulge at the L5-S1 level . Pain improved with Solu-Medrol, Lidoderm patch and Flexeril. On prednisone. Will do a taper. DVT prophylaxis: Bilateral SCDs Yogesh Gomez MD Dec 17, 2016 12:28
[2016-12-17] MEDS: diphenhydrAMINE HCL 50 MG CAP PO PRN (22:24)
[2016-12-18] VITALS: BP 121/77; PULSE 87; RESP 18; TEMP 98; O2SAT 96
[2016-12-18 04:00] VITALS: BP 130/82; PULSE 87; RESP 18; TEMP 98.3; O2SAT 96
[2016-12-18] MEDS: LORazepam 0.5 MG TAB PO PRN ×2 (06:13→14:27)
[2016-12-18] MEDS: CYCLOBENZAPRINE HCL 10 MG TAB PO SCH ×3 (06:13→19:58)
[2016-12-18] MEDS: IBUPROFEN 400 MG TAB PO PRN ×2 (06:13→14:27)
[2016-12-18 08:00] VITALS: BP 122/76; PULSE 91; RESP 18; TEMP 97.7; O2SAT 96
[2016-12-18 09:00] VITALS: PULSE 90
[2016-12-18] MEDS: LACTOBACILLUS ACIDOPHILUS TAB PO SCH (09:58)
[2016-12-18] MEDS: LIDOCAINE HCL 5% PATCH T-DERMAL SCH (09:58)
[2016-12-18] MEDS: predniSONE 20 MG TAB PO SCH (09:58)
[2016-12-18] MEDS: ceFAZolin 2 GM PREMIX 50 ML IV SCH (09:59)
[2016-12-18] MEDS: SODIUM CHLORIDE 0.9% FLUSH 10 ML FLUSH IV FLUSH SCH (09:59)
--- NOTE | 2016-12-18 10:34 | HHI.PR ---
Subjective Remarks Follow-up of endocarditis/MSSA bacteremia 12/17/16-patient seen and examined, only complains of back pain otherwise stable and afebrile. Otherwise stable 12/18/16-patient seen and examined, no acute event overnight, no complaint and stable. Objective Vitals Vital Signs Date Time Temp Pulse Resp B/P (MAP) Pulse Ox O2 Delivery O2 Flow Rate FiO2 12/18/16 08:00 97.7 91 18 122/76 (91) 96 12/18/16 04:00 Room Air 12/18/16 04:00 98.3 87 18 130/82 (98) 96 12/18/16 00:00 98.0 87 18 121/77 (92) 96 12/18/16 00:00 Room Air 12/17/16 20:09 85 12/17/16 20:00 Room Air 12/17/16 20:00 97.5 101 18 126/80 (95) 96 12/17/16 17:38 Room Air 12/17/16 16:00 97.4 90 17 125/83 (97) 96 12/17/16 15:00 93 12/17/16 12:00 Room Air 12/17/16 12:00 97.5 85 17 125/84 (98) 97 I/O 12/17/16 12/17/16 12/17/16 12/18/16 12/18/16 12/18/16 07:00 15:00 23:00 07:00 15:00 23:00 Intake Total 1052 ml 50 ml 1590 ml 530 ml Output Total 1300 ml Balance 1052 ml 50 ml 1590 ml -770 ml Intake Oral 950 ml 1440 ml 480 ml IV Total 102 ml 50 ml 150 ml 50 ml Output Urine Total 1300 ml # Voids 2 6 # Bowel Movements 0 Objective Remarks GENERAL: NAD SKIN: Warm and dry. HEAD: Normocephalic. EYES: No scleral icterus. No injection or drainage. NECK: Supple, trachea midline. No JVD or lymphadenopathy. CARDIOVASCULAR: Tachycardia Regular rate and rhythm without murmurs, gallops, or rubs. RESPIRATORY: Breath sounds equal bilaterally. No accessory muscle use. GASTROINTESTINAL: Abdomen soft, non-tender, nondistended. MUSCULOSKELETAL: No cyanosis, or edema. BACK: Nontender without obvious deformity. No CVA tenderness. A/P Problem List: (1) Endocarditis ICD Code: I38 - Endocarditis, valve unspecified (2) Gram-positive bacteremia ICD Code: R78.81 - Bacteremia Status: Acute (3) Sepsis ICD Code: A41.9 - Sepsis, unspecified organism Status: Resolved (4) Bilateral pneumonia ICD Code: J18.9 - Pneumonia, unspecified organism Status: Acute (5) IVDU (intravenous drug user) ICD Code: F19.90 - Other psychoactive substance use, unspecified, uncomplicated Status: Acute Assessment and Plan 26-year-old female with MSSA bacteremia Continue current antibiotic including Ancef 2 g IV every 8H KALIN showed vegetation in the tricuspid valve. Repeated blood cultures on 12/[address] Mosley secondary to IV drug use she recommend cefazoline vs dalvancin if pending pt's risk for using PICC for IVDA Endocarditis Patient on Ancef. Management per infectious disease specialist Sepsis: Resolved Community acquired bacterial pneumonia Chest x-ray with finding of bilateral pulmonary infiltrate Continue with above antibiotic including Ancef Sputum cultures negative. Hemoptysis 1 month. Internal Carver consulted appreciate consult. CT scan of thoracic show septic emboli. Symptoms improved. Continue current regimen. IVDU UDS positive for cocaine Counseled to quit Back pain Lumbar CT with finding of Mild asymmetric disc bulge at the L5-S1 level . Pain improved with Lidoderm patch and Flexeril. Taper prednisone and decrease to 20mg daily. DVT prophylaxis: Bilateral SCDs Yogesh Gomez MD Dec 18, 2016 10:34
[2016-12-18 12:00] VITALS: BP 126/87; PULSE 89; RESP 18; TEMP 97.7; O2SAT 99
--- NOTE | 2016-12-18 13:35 | HHI.IDPN ---
Subjective Subjective Remarks dointg good complete resolution of symptoms no fever no cough no hemoptysis repeat clx negative - final Antibiotics cefazoline Allergies: Coded Allergies: No Known Allergies (Unverified , 12/07/16) Objective . Vital Signs Date Time Temp Pulse Resp B/P (MAP) Pulse Ox O2 Delivery O2 Flow Rate FiO2 12/18/16 12:00 97.7 89 18 126/87 (100) 99 12/18/16 08:00 97.7 91 18 122/76 (91) 96 12/18/16 04:00 Room Air 12/18/16 04:00 98.3 87 18 130/82 (98) 96 12/18/16 00:00 98.0 87 18 121/77 (92) 96 12/18/16 00:00 Room Air 12/17/16 20:09 85 12/17/16 20:00 Room Air 12/17/16 20:00 97.5 101 18 126/80 (95) 96 12/17/16 17:38 Room Air 12/17/16 16:00 97.4 90 17 125/83 (97) 96 12/17/16 15:00 93 Imaging Last Impressions Chest CT 12/12/16 0000 Signed Impressions: Service Date/Time: Monday, December 12, 2016 20:03 - CONCLUSION: Numerous bilateral masses and focal areas of consolidation with cavitary change concerning for septic emboli. Chuy Mckeon MD Lumbar Spine CT 12/09/16 1050 Signed Impressions: Service Date/Time: Friday, December 09, 2016 11:07 - CONCLUSION: 1. Mild asymmetric disc bulge at the L5-S1 level an apparent mild mass effect on the left S1 nerve root which is displaced posteriorly several millimeters. 2. Straightening of the normal lumbar lordosis. Kunal Rachel MD Physical Exam CONSTITUTIONAL/GENERAL: This is an adequately nourished patient, in no apparent distress. TUBES/LINES/DRAINS: periferal IV in place SKIN: No jaundice, rashes, or lesions. CARDIOVASCULAR: Regular rate and rhythm without murmurs, gallops, or rubs. No JVD. Peripheral pulses symmetric. RESPIRATORY/CHEST: Symmetric, unlabored respirations. Clear to auscultation. GASTROINTESTINAL: Abdomen soft, non-tender, nondistended. No hepato-splenomegaly , or palpable masses. MUSCULOSKELETAL: Extremities without clubbing, cyanosis, or edema. NEUROLOGICAL: Awake and alert. Motor and sensory grossly within normal limits. Follows commands. Clear speech. Moves all extremities. PSYCHIATRIC: No obvious anxiety/depression. no apparent hallucinations or other psychotic thought process. 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
--- NOTE | 2016-12-18 13:40 | HHI.FF ---
Infusion Therapy Location of Infusion Therapy: Ambulatory Infusion Therapy Order Patient Information Patient Weight 72.1 kg Diagnosis: Diagnosis tricuspid valve endocarditis, MSSA Coded Allergies: No Known Allergies (Unverified , 12/07/16) Administer Medication Ceftriaxone 2 grams IV q 24 hours Start Treatment: Dec 19, 2016 Stop Treatment: Jan 07, 2017 Additional Information Venous access: PICC Line Additional Instructions [x] Peripheral flush and dressing changes per protocol [x] Implanted port and central online editor: * Implanted port: 10 ml Normal Saline followed by 5 ml Heparin 100 units/ml Heparin flush after each use and monthly to maintain. [] May leave port accessed during therapy. [] May leave peripheral site accessed for duration of therapy. [x] If patient has SOB or respiratory distress, check oxygen saturation. If less than 90% or clinical signs of respiratory distress, administer oxygen at 2 L/min. via nasal cannula and notify physician. [x] Anaphylaxis/Reaction orders: * Stop infusion. * Keep IV line open with saline flush. * Notify physician. * Monitor vital signs every 15 minutes until symptoms resolve. * Check Oxygen saturation; Oxygen at 2 L/min. via nasal cannula if less than 90% or clinical signs of respiratory distress. * Administer diphenhydramine (Benadryl) 25 mg IV STAT, (unless patient has received as pre-med). May repeat once, if necessary. * Solu-Cortef 250 mg IVP over 30-60 seconds, use 100 mg vials for each dissolution. * Epinephrine (1mg/1 ml) 0.3 mg subcutaneously or IVP now with any signs of respiratory distress. * Check with physician for new additional pre-med orders if patient is re- challenged or re-treated. [x] May remove PICC line when treatment complete, after confirming with Physician. [x] If the patient is admitted to the hospital, the ED, or transferred via [facility] , complete transfer form including medication reconciliation order sheet. Laboratory Tests Weekly Labs: CBC w/diff, Creatinine, LFT's (Hepatic function test) Shana Mosley MD Dec 18, 2016 13:40
[2016-12-18] MEDS ORDERED: SOLU250I IV PUSH (13:42)
[2016-12-18] MEDS ORDERED: EPIN1INJ21 SQ (13:42)
[2016-12-18] MEDS ORDERED: EPIN1INJ21 IV PUSH (13:42)
[2016-12-18] MEDS ORDERED: CEFT2INJ IM (13:42)
[2016-12-18] MEDS ORDERED: cefTRIAXone INJ 2,000 MG in SODIUM CHLORIDE 0.9% INJ 100 ML IV SCH (15:00)
[2016-12-18 16:00] VITALS: BP 119/80; PULSE 93; RESP 18; TEMP 98; O2SAT 96
[2016-12-18] MEDS ORDERED: CYCL1TAB29 PO (16:41)
[2016-12-18] MEDS ORDERED: LIDO5DIS5 T-DERMAL (16:41)
--- NOTE | 2016-12-18 16:45 | HHI.DS ---
Discharge Summary Admission Date Dec 07, 2016 at 21:48 Discharge Date: Dec 18, 2016 Admitting Diagnosis (1) Endocarditis ICD Code: I38 - Endocarditis, valve unspecified (2) Gram-positive bacteremia ICD Code: R78.81 - Bacteremia Status: Acute (3) Sepsis ICD Code: A41.9 - Sepsis, unspecified organism Status: Resolved (4) Bilateral pneumonia ICD Code: J18.9 - Pneumonia, unspecified organism Status: Acute (5) IVDU (intravenous drug user) ICD Code: F19.90 - Other psychoactive substance use, unspecified, uncomplicated Status: Acute Procedures none Brief History - From Admission 26 year-old female for past history of IVDU presented to the [facility] ED for evaluation of worsening shortness of breath, hemoptysis and subjective fever with temperature of 103 times several days duration along with pleuritic chest pain. Patient states she's completed a second course of 10 days antibiotic for pneumonia. She was initially diagnosed with community acquired bacterial pneumonia in 10/30/16 however was able to fill out her prescription of Levaquin and prednisone on 11/04/16. Her second bout of pneumonia for which patient was put on a ten-day course of antibiotics was 11/19/16 patient recently completed. She also reports prior history of IVDU however has been clean over the past 3 years, unfortunately patient did use cocaine recently. She denies any hematuria, GI bleed. PE at Discharge GENERAL: In no acute distress. SKIN: Warm and dry. HEAD: Normocephalic. EYES: No scleral icterus. No injection or drainage. NECK: Supple, trachea midline. No JVD or lymphadenopathy. CARDIOVASCULAR: Regular rate and rhythm without murmurs, gallops, or rubs. RESPIRATORY: Breath sounds equal bilaterally. No accessory muscle use. GASTROINTESTINAL: Abdomen soft, non-tender, nondistended. Hospital Course MSSA bacteremia Continue current antibiotic including Ancef 2 g IV every 8H KALIN showed vegetation in the tricuspid valve. Repeated blood cultures on 12/11 NTD. Endocarditis Patient on Ancef. Management per infectious disease specialist Sepsis: Resolved Community acquired bacterial pneumonia Chest x-ray with finding of bilateral pulmonary infiltrate Continue with above antibiotic including Ancef Sputum cultures negative. Hemoptysis 1 month. Cafeteria Counter Attendant consulted appreciate consult. CT scan of thoracic show septic emboli. Symptoms improved. Continue current regimen. IVDU UDS positive for cocaine Counseled to quit Back pain Lumbar CT with finding of Mild asymmetric disc bulge at the L5-S1 level . Pain improved with Lidoderm patch and Flexeril. prednisone 20mg daily. DVT prophylaxis: Bilateral SCDs Pt Condition on Discharge: Stable Discharge Disposition: Discharge Home Discharge Time: > 30 minutes Discharge Instructions DIET: Follow Instructions for: Heart Healthy Diet Activities you can perform: Regular-No Restrictions Follow up Referrals: PCP Follow-up - 1 Week New Medications: Ceftriaxone Inj (Ceftriaxone Inj) 2 Gm Inj 2 GM IM Q24H for Infection for 20 Days, VIAL 0 Refills Epinephrine Inj (Epinephrine Inj) 1 Mg/Ml Inj 0.3 MG IV PUSH ONCE PRN for ALLERGIC REACTION, #1 VIAL Epinephrine Inj (Epinephrine Inj) 1 Mg/Ml Inj 0.3 MG SQ ONCE PRN for ALLERGIC REACTION, #1 VIAL Give with any signs of respiratory distress. Hydrocortisone Inj (Solu-Cortef Inj) 250 Mg Inj 250 MG IV PUSH ONCE PRN for ALLERGIC REACTION, #1 VIAL 0 Refills Give over 30-60 seconds. Cyclobenzaprine (Flexeril) 10 Mg Tab 5 MG PO Q8HR for Pain Management, #30 TAB Lidocaine (Lidoderm) 5 % Adh..patch 1 PATCH T-DERMAL DAILY for Pain Management, #5 PATCH Continued Medications: Buprenorphine-Naloxone Sublingual Film (Suboxone Sublingual Film) 8-2 Mg Film 1 FILM SL, FILM Unique ID number required: Norethindrone-Ethinyl Estradiol (Loestrin 05/18) 1-20 Mg-Mcg Tab 1 TAB PO DAILY, #1 PACK 0 Refills Yogesh Gomez MD Dec 18, 2016 16:45
[2016-12-19] MEDS ORDERED: predniSONE 20 MG TAB PO SCH (09:00)
[2017-01-16] MEDS ORDERED: SUBO8MIS SL (14:06)
[2017-01-31] MEDS ORDERED: CLON.5 PO (11:14)
[2017-02-18] MEDS ORDERED: CLON.5 PO ×2 (11:04→11:05)
== END 2016-12-18 20:26 | disposition home or self-care (01) | DRG 871 ==
LOC: PHEDDLT 21:47 → PH3A 21:48 → N04B 12-10 17:24
PROVIDERS: ADMIT Hospitalist; ATTEND Hospitalist
PROC: B24CZZ4 Ultrasonography of Pericardium, Transesophageal (ICD-10-PCS; principal; 2016-12-11)
DX: A41.01 Sepsis due to Methicillin susceptible Staphylococcus aureus (principal); I26.90 Septic pulmonary embolism without acute cor pulmonale; I33.0 Acute and subacute infective endocarditis; I76 Septic arterial embolism; J15.9 Unspecified bacterial pneumonia; I07.1 Rheumatic tricuspid insufficiency; B96.89 Other specified bacterial agents as the cause of diseases classified elsewhere; Z72.0 Tobacco use; M54.5 Low back pain; F14.90 Cocaine use, unspecified, uncomplicated
CPT/HCPCS: 36569; 71010; 71250; 72131; 76937; 80048; 80053; 80074; 80076; 80202; 80307; 81001; 82550; 83605; 83735; 84484; 84702; 85007; 85025; 85027; 85610; 85730; 86403; 86703; 87040; 87070; 87086; 87147; 87186; 87205; 87449; 93005; 93306; 93312; 93320; 93325; 96361; 96365; 96367; 96368; 96372; 96375; J0456; J0690; J0696; J1650; J2060; J2405; J2920; J3370; J7030; J7050; J7512; Q0163

== ENCOUNTER 2017-01-16 20:57 | Inpatient (IN) | payer OTHER ==
[~2017-01-16] VITALS: Ht 172.7 cm; Wt 74.2 kg
[2017-01-16] MEDS: SODIUM CHLOR 0.9% 1000 ML INJ 1,000 ML IV SCH ×2 (17:37)
[~2017-01-16 20:57] MED LIST changes: +ACETAMINOPHEN 325 MG TAB PO PRN; +BISACODYL 10 MG SUPP RECTAL PRN; +CYCL1TAB29 PO; +FLUMAZENIL 0.5 MG/5 ML VIAL IV PUSH PRN; +HALOPERIDOL LACTATE 5 MG/ML AMP IM PRN; +LACTULOSE SYRUP 20 GM/30 ML CUP PO PRN; +LIDO5DIS5 T-DERMAL; +LORazepam 1 MG TAB PO PRN; +LORazepam 2 MG TAB PO PRN; +LORazepam 2 MG/ML VIAL IV PUSH PRN; +MAGNESIUM HYDROXIDE SUSP 30 ML CUP PO PRN; +MORPHINE SULFATE 4 MG/ML INJ IV PUSH PRN; +NALOXONE HCL 0.4 MG/ML AMP IV PUSH PRN; +ONDANSETRON HCL 4 MG/2 ML VIAL IVP PRN; +PROCHLORPERAZINE 25 MG SUPP RECTAL PRN; +SENNOSIDES 8.6 MG TAB PO PRN; +SODIUM CHLORIDE 0.9% FLUSH 10 ML FLUSH IV FLUSH PRN; +SUBO8MIS SL; +VANCOMYCIN INJ 1,000 MG in SODIUM CHLOR 0.9% 250 ML INJ 250 ML IV ONE; +Vancomycin Consult Pharmacy 1 EA OTHER SCH; +cloNIDine HCL 0.1 MG TAB PO PRN; +oxyCODONE/ACETAMINOPHEN 10 MG/325 MG TAB PO PRN; +oxyCODONE/ACETAMINOPHEN 5 MG/325 MG TAB PO PRN
[2017-01-16] MEDS ORDERED: SODIUM CHLORIDE 0.9% FLUSH 10 ML FLUSH IV FLUSH SCH (21:00)
[2017-01-16] MEDS: DOCUSATE SODIUM 50 MG/SENNA 8.6 MG TAB PO SCH (21:00)
[2017-01-16 21:09] VITALS: BP 118/79; PULSE 105; RESP 16; TEMP 97.7; O2SAT 94
[2017-01-16 22:00] VITALS: PULSE 97
[2017-01-16] MEDS: PANTOPRAZOLE SOD 40 MG DELAYED RELEASE TAB PO SCH (23:00)
[2017-01-16] MEDS: SODIUM CHLORIDE 0.9% FLUSH 10 ML FLUSH IV FLUSH SCH (23:00)
[2017-01-16] MEDS: MULTIVITAMINS/MINERALS THERAPEUTIC TAB PO SCH (23:00)
[2017-01-16] MEDS: PIPERACIL-TAZO 4.5 GM PREMIX 100 ML IV SCH (23:05)
[2017-01-16 23:50] VITALS: BP 120/79; PULSE 103; RESP 16; TEMP 97.6; O2SAT 96
[2017-01-17] VITALS (9 sets, daily range): BP systolic 98–117; BP diastolic 68–80; PULSE 91–116; RESP 16–18; TEMP 97.9–98.7; O2SAT 92–99
[2017-01-17 01:06] LABS: CREATINE KINASE 68 U/L (26-192)
--- NOTE | 2017-01-17 02:06 | HHI.HP ---
[facility] Primary [facility]ician No Primary Care Physician Admission Diagnosis Diagnoses: Travel History International Travel<30 Days: No Contact w/Intl Traveler <30 Da: No Traveled to Known Affected Are: No History of Present Illness hx from patient, ER notes from [place] and review of records pt was dc from our hospital end of november she was treated at that time for endocarditis/ sepsis/ pneumonia completed iv antibiotics for bactremia - at infusion center- on came to hospital today because of dyspnea, chest pain worse on exertion. no cough no fever no nausea/ no vomiting/ no diarrhea no urinrary symptoms no dziz, no syncope in ER, pt's imaging studies reveal pulmonary infarct and embolism she was started on lovenox therapeutic dose reports of ivda hx, but quit 3yrs ago had used cocaine prior to last hospitalization early this month but none since then had vegetations by KALIN early this month- Review of Systems Except as stated in HPI: all other systems reviewed are Neg Past Family Social History Past Medical History endocarditis pneumonia Past Surgical History none Reported Medications none Allergies: Coded Allergies: No Known Allergies (Unverified , 01/16/17) Family History dm- grandma lung caner in the other grandma Social History quit smoking 2 yrs ago no etoh cleaned for drugs for 3 yrs, but right before last admission used cocaine Physical Exam Vital Signs Vital Signs Date Time Temp Pulse Resp B/P (MAP) Pulse Ox O2 Delivery O2 Flow Rate FiO2 01/16/17 23:50 97.6 103 16 120/79 (93) 96 01/16/17 21:09 97.7 105 16 118/79 (92) 94 Physical Exam GENERAL: This is a well-nourished, well-developed patient, very pleasant young lady, in no apparent distress. SKIN: No rashes, ecchymoses or lesions. Cool and dry. no digital ischemia, no splinter hemorrhages HEAD: Atraumatic. Normocephalic. No temporal or scalp tenderness. EYES: Pupils equal round and reactive. Extraocular motions intact. No scleral icterus. No injection or drainage. ENT: Nose without bleeding, purulent drainage or septal hematoma. Airway patent. NECK: Trachea midline. No JVD CARDIOVASCULAR: Regular rate and rhythm without murmurs, gallops, or rubs. RESPIRATORY: Clear to auscultation. Breath sounds equal bilaterally. No wheezes , rales, or rhonchi. GASTROINTESTINAL: Abdomen soft, non-tender, nondistended. . No guarding. MUSCULOSKELETAL: Extremities without clubbing, cyanosis, or edema. No calf tenderness. NEUROLOGICAL: Awake and alert.Motor and sensory grossly within normal limits. Normal speech. Laboratory Laboratory Tests Test 01/17/17 00:27 Total Creatine Kinase 68 Troponin I LESS THAN 0.[address] pulmonary angiogram done at [facility] reviewed- 1. Right lower lobe pulmonary emboli. 2. Patchy densities in the lower lobes and right upper lobe could be infectious/ inflammatory. 3. Pulmonary infarcts suspected in the right lower lobe. 4. There are some scattered cavitary densities greater in the right lower lobe of uncertain etiology but could be infectious, related to septic emboli or cystic lung disease such as SANTANA. Caprini VTE Risk Assessment Caprini VTE Risk Assessment: Mod/High Risk (score >= 2) Caprini Risk Assessment Model Point Value = 1 Point Value = 2 Point Value = 3 Point Value = 5 Age 41-60 Minor surgery BMI > 25 kg/m2 Swollen legs Varicose veins or History of unexplained or recurrent spontaneous Oral contraceptives or hormone replacement Sepsis (< 1 month) Serious lung disease, including pneumonia (< 1 month) Abnormal pulmonary function Acute myocardial infarction Congestive heart failure (< 1 month) History of inflammatory bowel disease Medical patient at bed rest Age 61-74 Arthroscopic surgery Major open surgery (> 45 min) Laparoscopic surgery (> 45 min) Malignancy Confined to bed (> 72 hours) Immobilizing plaster cast Central venous access Age >= 75 History of VTE Family history of VTE Factor V Leiden Prothrombin [id number] Lupus anticoagulant Anticardiolipin antibodies Elevated serum homocysteine Heparin-induced thrombocytopenia Other congenital or acquired thrombophilia Stroke (< 1 month) Elective arthroplasty Hip, pelvis, or leg fracture Acute spinal cord injury (< 1 month) Prophylaxis Regimen Total Risk Factor Score Risk Level Prophylaxis Regimen 0-1 Low Early ambulation 2 Moderate Order ONE of the following: *Sequential Compression Device (SCD) *Heparin 5000 units SQ BID 3-4 Higher Order ONE of the following medications: *Heparin 5000 units SQ TID *Enoxaparin/Lovenox 40 mg SQ daily (WT < 150 kg, CrCl > 30 mL/min) *Enoxaparin/Lovenox 30 mg SQ daily (WT < 150 kg, CrCl > 10-29 mL/min) *Enoxaparin/Lovenox 30 mg SQ BID (WT < 150 kg, CrCl > 30 mL/min) AND/OR *Sequential Compression Device (SCD) 5 or more Highest Order ONE of the following medications: *Heparin 5000 units SQ TID (Preferred with Epidurals) *Enoxaparin/Lovenox 40 mg SQ daily (WT < 150 kg, CrCl > 30 mL/min) *Enoxaparin/Lovenox 30 mg SQ daily (WT < 150 kg, CrCl > 10-29 mL/min) *Enoxaparin/Lovenox 30 mg SQ BID (WT < 150 kg, CrCl > 30 mL/min) AND *Sequential Compression Device (SCD) Assessment and Plan Assessment and Plan Impression: Pulmonary embolism- right lower lobe Right lower lobe pulmonary infarct Most likely septic emboli from vegetations Recent history of endocarditis- was treated and antibiotics completed on January 10, 2017 Plan: will follow blood culture results. At present, we'll continue vancomycin, Zosyn, for creatinine clearance and levels. Consult infectious disease for further recommendations as to antibiotics. Also , given that patient has pulmonary infarct likely secondary to septic emboli, question whether patient needs cardiovascular evaluation regarding her vegetations. We'll leave the decision up to infectious disease specialist. Resume home meds. Discontinue CIWA protocol since patient does not drink alcohol. Patient is quite reliable patient and her last IV drug abuse was 3 years ago. DVT prophylaxiswith Lovenox. Discussed Condition With Patient,nursing staff Physician Certification 2 Midnight Certification Type: Admission for Inpatient Services Order for Inpatient Services The services are ordered in accordance with Medicare regulations or non- Medicare payer requirements, as applicable. In the case of services not specified as inpatient-only, they are appropriately provided as inpatient services in accordance with the 2-midnight benchmark. Estimated LOS (days): 3 days is the estimated time the patient will need to remain in the hospital, assuming treatment plan goals are met and no additional complications. Post-Hospital Plan: Home Shira Pena MD Jan 17, 2017 02:06
[2017-01-17] MEDS: SODIUM CHLOR 0.9% 1000 ML INJ 1,000 ML IV SCH ×6 (03:11→23:37)
[2017-01-17] MEDS: PIPERACIL-TAZO 4.5 GM PREMIX 100 ML IV SCH ×4 (03:33→15:53)
[2017-01-17] MEDS ORDERED: VANCOMYCIN 1,000 MG/NS 250 ML IV ONE ×2 (04:00)
[2017-01-17] MEDS: ENOXAPARIN SODIUM 80 MG/0.8 ML SYRINGE SQ SCH ×2 (06:27→17:08)
[2017-01-17 08:45] LABS: INTERNATIONAL NORMALIZED RATIO 1.1 RATIO; PROTHROMBIN TIME - PATIENT 11.8 SEC (9.8-11.6)
[2017-01-17 08:47] LABS: AUTOMATED NEUTROPHIL # 2.2 TH/MM3 (1.8-7.7); BASOPHIL % 0.8 % (0.0-2.0); EOSINOPHIL # 0.1 TH/MM3 (0-0.4); EOSINOPHIL % 1.5 % (0.0-4.0); HEMATOCRIT 32.3 % (35.0-46.0); HEMO FLAGS DIFF FINAL; LYMPH % 39.8 % (9.0-44.0); LYMPHOCYTE # 1.9 TH/MM3 (1.0-4.8); MEAN CELL VOLUME 80.2 FL (80.0-100.0); MEAN CORPUSCULAR HEMOGLOBIN 26.6 PG (27.0-34.0); MEAN CORPUSCULAR HGB CONC 33.2 % (32.0-36.0); NEUT % 46.9 % (16.0-70.0); PLATELET COUNT 273 TH/MM3 (150-450); RED BLOOD COUNT 4.03 MIL/MM3 (4.00-5.30); RED CELL DISTRIBUTION WIDTH 16.6 % (11.6-17.2); WHITE BLOOD COUNT 4.7 TH/MM3 (4.0-11.0)
[2017-01-17] MEDS: THIAMINE HCL 100 MG TAB PO SCH (08:52)
[2017-01-17] MEDS: FOLIC ACID 1 MG TAB PO SCH (08:52)
[2017-01-17] MEDS: MULTIVITAMINS/MINERALS THERAPEUTIC TAB PO SCH (08:52)
[2017-01-17] MEDS: PANTOPRAZOLE SOD 40 MG DELAYED RELEASE TAB PO SCH (08:52)
[2017-01-17] MEDS: DOCUSATE SODIUM 50 MG/SENNA 8.6 MG TAB PO SCH ×2 (08:53→21:00)
[2017-01-17] MEDS: SODIUM CHLORIDE 0.9% FLUSH 10 ML FLUSH IV FLUSH SCH ×2 (08:53→21:23)
[2017-01-17 09:10] LABS: ANION GAP 9 MEQ/L (5-15); AST (GOT) 21 U/L (15-37); BICARBONATE 24.4 MEQ/L (21.0-32.0); BLOOD UREA NITROGEN 12 MG/DL (7-18); CHLORIDE 107 MEQ/L (98-107); GLOMERULAR FILTRATION RATE 85 ML/MIN (>89); MAGNESIUM 1.8 MG/DL (1.5-2.5); POTASSIUM 3.6 MEQ/L (3.5-5.1); SODIUM (NA) 140 MEQ/L (136-145)
[2017-01-17 09:24] LABS: ALKALINE PHOSPHATASE 113 U/L (45-117); ALT (GPT) 27 U/L (10-53); CREATINE KINASE 54 U/L (26-192); FREE T4 1.08 NG/DL (0.76-1.46); TOTAL BILIRUBIN ADULT 0.5 MG/DL (0.2-1.0)
[2017-01-17 09:38] LABS: ALCOHOL LESS THAN 3 MG/DL (0-5)
--- NOTE | 2017-01-17 10:00 | RADRPT ---
EXAM DATE/TIME: 01/17/2017 09:14 [facility] COMPARISON: No previous studies available for comparison. INDICATIONS : Pulmonary embolism. MEDICAL HISTORY : Tricuspid valve endocarditis. Pneumonia. Pulmonary embolism. Chest pain. Asthma. Dyspnea. Anxiety. Pineda bstance use. Tobacco use. Anticoagulanth therapy, Lovenox. SURGICAL HISTORY : None. ENCOUNTER: Initial ACUITY: 2 day PAIN SCORE: 2/10 LOCATION: Bilateral leg. TECHNIQUE: Venous ultrasound of the left and right leg was performed from the inguinal ligament to the proximal calf. Real-time, color Doppler and spectral tracing, compression and augmentation techniques were us ed. FINDINGS: RIGHT LEG: There is normal compressibility of the deep venous system from the inguinal region to the proximal ca lf. No echogenic clot is seen in the lumen of the common femoral, femoral, popliteal, and posterior tibial veins. There is a normal response of the venous system to proximal and distal augmentation an d respiration. LEFT LEG: There is normal compressibility of the deep venous system from the inguinal region to the proximal ca lf. No echogenic clot is seen in the lumen of the common femoral, femoral, popliteal, and posterior tibial veins. There is a normal response of the venous system to proximal and distal augmentation an d respiration. CONCLUSION: Normal examination. Sebastien Moore MD on January 17, 2017 at 9:58 Board Certified Radiologist. This report was verified electronically.
[2017-01-17] MEDS: VANCOMYCIN INJ 1,500 MG in SODIUM CHLORID 0.9% 500 ML INJ 500 ML IV SCH ×2 (11:23→17:08)
--- NOTE | 2017-01-17 13:29 | PD.ID.CON ---
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 KALIN showed mass on tricuspid valve She was discharged to complete IV CFTX thru 01/10 She noticed improvemnt in her symptoms, but later again noticed pleuritic type chest pain and some cough SHe has no longer hemoptysis Pt is now afebrile and her WBC is normal She was not doing IV drugs for at least 2.5 yrs and her multiple family members with whom she resides confirmed that Review of Systems Respiratory: COMPLAINS OF: Cough Cardiovascular: COMPLAINS OF: Chest pain Except as stated in HPI: all other systems reviewed are Neg Past Family Social History Allergies: Coded Allergies: No Known Allergies (Unverified , 01/16/17) Past Medical History H/O recent PNA IVDU Past Surgical History none Active Ordered Medications Medications where reviewed in EMR Antibiotics Include: vancomycin zosyn Family History Strong family history of diabetes, lung cancer Social History Alcohol Use: No Tobacco Use: Yes Substance Use: Recent cocaine use, IVDU - remote s/ rehab She was not doing IV drugs for at least 2.5 yrs and her multiple family members with whom she resides confirmed that Physical Exam Vital Signs Vital Signs Date Time Temp Pulse Resp B/P (MAP) Pulse Ox O2 Delivery O2 Flow Rate FiO2 01/17/17 12:00 97.9 91 18 103/68 (80) 97 01/17/17 08:50 Room Air 01/17/17 08:50 116 01/17/17 08:00 98.1 106 18 117/73 (88) 96 01/17/17 04:12 98.7 96 16 113/79 (90) 99 01/16/17 23:50 97.6 103 16 120/79 (93) 96 01/16/17 22:00 Room Air 01/16/17 22:00 97 01/16/17 21:09 97.7 105 16 118/79 (92) 94 Physical Exam CONSTITUTIONAL/GENERAL: This is an adequately nourished patient, in no apparent distress. TUBES/LINES/DRAINS: SKIN: No jaundice, rashes, or lesions. Skin temperature appropriate. Not diaphoretic. HEAD: Atraumatic. Normocephalic. EYES: Pupils equal and round and reactive. Extraocular motions intact. No scleral icterus. No injection or drainage. Fundi not examined. ENT: Hearing grossly normal. Nose without bleeding or purulent drainage. Oral mucosae moist without visible erythema, exudates, masses, or lesions. NECK: Trachea midline. Supple, nontender. . CARDIOVASCULAR: Regular rate and rhythm without murmurs, gallops, or rubs. No JVD. Peripheral pulses symmetric. RESPIRATORY/CHEST: Symmetric, unlabored respirations. Clear to auscultation. Breath sounds equal bilaterally. No wheezes, rales, or rhonchi. GASTROINTESTINAL: Abdomen soft, non-tender, nondistended. No hepato-splenomegaly , or palpable masses. No guarding. Bowel sounds present. MUSCULOSKELETAL: Extremities without clubbing, cyanosis, or edema. No joint effusion noted. No mottling or clubbing. LYMPHATICS: No palpable cervical or supraclavicular adenopathy. NEUROLOGICAL: Awake and alert. Motor and sensory grossly within normal limits. Follows commands. Clear speech. Moves all extremities. PSYCHIATRIC: No obvious anxiety/depression. no apparent hallucinations or other psychotic thought process. Laboratory Laboratory Tests Test 01/17/17 00:27 01/17/17 07:21 Total Creatine Kinase 68 54 Troponin I LESS THAN 0.02 LESS THAN 0.02 White Blood Count 4.7 Red Blood Count 4.03 Hemoglobin 10.7 Hematocrit 32.3 Mean Corpuscular Volume 80.2 Mean Corpuscular Hemoglobin 26.6 Mean Corpuscular Hemoglobin Concent 33.2 Red Cell Distribution Width 16.6 Platelet Count 273 Mean Platelet Volume 6.4 Neutrophils (%) (Auto) 46.9 Lymphocytes (%) (Auto) 39.8 Monocytes (%) (Auto) 11.0 Eosinophils (%) (Auto) 1.5 Basophils (%) (Auto) 0.8 Neutrophils # (Auto) 2.2 Lymphocytes # (Auto) 1.9 Monocytes # (Auto) 0.5 Eosinophils # (Auto) 0.1 Basophils # (Auto) 0.0 CBC Comment DIFF FINAL Differential Comment Prothrombin Time 11.8 Prothromb Time International Ratio 1.1 Blood Urea Nitrogen 12 Creatinine 0.81 Random Glucose 84 Total Protein 7.0 Albumin 3.0 Calcium Level 8.4 Phosphorus Level 3.8 Magnesium Level 1.8 Alkaline Phosphatase 113 Aspartate Amino Transf (AST/SGOT) 21 Alanine Aminotransferase (ALT/SGPT) 27 Total Bilirubin 0.5 Sodium Level 140 Potassium Level 3.6 Chloride Level 107 Carbon Dioxide Level 24.4 Anion Gap 9 Estimat Glomerular Filtration Rate 85 Hemoglobin A1c 5.0 Free Thyroxine 1.08 Thyroid Stimulating Hormone 3rd Gen 3.280 Ethyl Alcohol Level LESS THAN 3 Result Diagram: 01/17/17 0721 01/17/17 0721 Imaging Last Impressions Lower Extremity Ultrasound 01/17/17 0000 Signed Impressions: Service Date/Time: , January 17, 2017 09:14 - CONCLUSION: Normal examination. Sebastien Moore MD Assessment and Plan Assessment and Plan Recent MSSA tricuspid valve endocarditis with pulmonary septic emboli and hemoptyssi completed 4 weeks of abx Now with PE, pulmonary infacts Blood clx are negative @ 1 day dc vancomycin start cefazoline fu blood clx - sputum clx if able to expectorate 2 D echo Discussed Condition With family at b/s Shana Mosley MD Jan 17, 2017 13:29
[2017-01-17] MEDS ORDERED: diphenhydrAMINE HCL 50 MG/ML VIAL IV PUSH ONE (14:00)
[2017-01-17] MEDS: LORazepam 0.5 MG TAB PO PRN (14:32)
--- NOTE | 2017-01-17 17:31 | ECHRPT ---
Indication: Endocarditis and heart valve disorders in diseases classified elsewhere CONCLUSIONS . The right ventricle is mildly dilated. The right atrial size is [id number] dilated. There is severe tricuspid regurgitation. The estimated pulmonary arterial pressure is 35.8 mmHg. Mild thickening of the tricuspid valve leaflets. No vegetation noted. There is a small pericardial effusion present. BP: / HR: 97 Rhythm: Sinus MEASUREMENTS (Male / Female) Normal Values Technical Quality:Good 2D ECHO LV Diastolic Diameter PLAX 4.0 cm 4.2 - 5.9 / 3.9 - 5.3 cm LV Systolic Diameter PLAX 2.8 cm IVS Diastolic Thickness 1.1 cm 0.6 - 1.0 / 0.6 - 0.9 cm LVPW Diastolic Thickness 1.1 cm 0.6 - 1.0 / 0.6 - 0.9 cm LV Relative Wall Thickness 0.6 LVOT Diameter 2.3 cm M-MODE Aortic Root Diameter MM 2.4 cm LA Systolic Diameter MM 2.6 cm LA Ao Ratio MM 1.1 AV Cusp Separation MM 2.1 cm DOPPLER AV Peak Velocity 111.0 cm/s AV Peak Gradient 4.9 mmHg LVOT Peak Velocity 70.6 cm/s LVOT Peak Gradient 2.0 mmHg AV Area Cont Eq pk 2.6 cm Mitral E Point Velocity 82.4 cm/s Mitral A Point Velocity 29.6 cm/s Mitral E to A Ratio 2.8 LV E' Lateral Velocity 13.5 cm/s Mitral E to LV E' Lateral Ratio 6.1 TR Peak Velocity 254.0 cm/s TR Peak Gradient 25.8 mmHg Right Atrial Pressure 10.0 mmHg Pulmonary Artery Systolic Pressu 35.8 mmHg Right Ventricular Systolic Press 35.8 mmHg PV Peak Velocity 107.0 cm/s PV Peak Gradient 4.6 mmHg FINDINGS LEFT VENTRICLE Normal left ventricular size and wall thickness. The left ventricular systolic function is normal wi th an estimated ejection fraction in the range of 60-65%. Left ventricular diastolic function parameters a re normal. . RIGHT VENTRICLE The right ventricle is mildly dilated. LEFT ATRIUM The left atrial size is normal. RIGHT ATRIUM The right atrial size is [id number] dilated. ATRIAL SEPTUM Normal atrial septal thickness without atrial level shunting by limited color doppler interrogation. AORTA The aortic root and proximal ascending aorta are normal in size on limited imaging. MITRAL VALVE Structurally normal mitral valve. No mitral valve stenosis or regurgitation. AORTIC VALVE Trileaflet aortic valve. No aortic valve stenosis or regurgitation. TRICUSPID VALVE There is severe tricuspid regurgitation. The estimated pulmonary arterial pressure is 35.8 mmHg. Mild thickening of the tricuspid valve leaflets. No vegetation noted. PULMONARY VALVE No pulmonary valve regurgitation or stenosis. VESSELS The inferior vena cava is normal in size. PERICARDIUM There is a small pericardial effusion present. Adrian Coker MD, FACC (Electronically Signed) Final Date:17 January 2017 17:30
[2017-01-17] MEDS: ceFAZolin 2 GM PREMIX 50 ML IV SCH (21:21)
[2017-01-18] VITALS (8 sets, daily range): BP systolic 100–127; BP diastolic 65–84; PULSE 80–114; RESP 16–18; TEMP 97.2–99.4; O2SAT 92–97
[2017-01-18] MEDS: LORazepam 0.5 MG TAB PO PRN ×3 (00:03→17:11)
[2017-01-18] MEDS: ceFAZolin 2 GM PREMIX 50 ML IV SCH ×3 (05:51→22:03)
[2017-01-18] MEDS: ENOXAPARIN SODIUM 80 MG/0.8 ML SYRINGE SQ SCH ×2 (05:54→17:11)
[2017-01-18] MEDS: DOCUSATE SODIUM 50 MG/SENNA 8.6 MG TAB PO SCH ×2 (09:00→21:00)
[2017-01-18 09:12] LABS: AUTOMATED NEUTROPHIL # 1.7 TH/MM3 (1.8-7.7); BASOPHIL # 0.1 TH/MM3 (0-0.2); BASOPHIL % 1.2 % (0.0-2.0); EOSINOPHIL # 0.1 TH/MM3 (0-0.4); EOSINOPHIL % 2.2 % (0.0-4.0); HEMATOCRIT 34.7 % (35.0-46.0); HEMO FLAGS DIFF FINAL; LYMPH % 47.4 % (9.0-44.0); LYMPHOCYTE # 2.2 TH/MM3 (1.0-4.8); MEAN CORPUSCULAR HGB CONC 32.4 % (32.0-36.0); MONO % 12.2 % (0.0-8.0); PLATELET COUNT 304 TH/MM3 (150-450); RED BLOOD COUNT 4.33 MIL/MM3 (4.00-5.30); RED CELL DISTRIBUTION WIDTH 16.2 % (11.6-17.2); WHITE BLOOD COUNT 4.6 TH/MM3 (4.0-11.0)
[2017-01-18] MEDS: THIAMINE HCL 100 MG TAB PO SCH (09:22)
[2017-01-18] MEDS: PANTOPRAZOLE SOD 40 MG DELAYED RELEASE TAB PO SCH (09:22)
[2017-01-18] MEDS: MULTIVITAMINS/MINERALS THERAPEUTIC TAB PO SCH (09:22)
[2017-01-18] MEDS: FOLIC ACID 1 MG TAB PO SCH (09:22)
[2017-01-18] MEDS: SODIUM CHLORIDE 0.9% FLUSH 10 ML FLUSH IV FLUSH SCH ×2 (09:22→22:03)
[2017-01-18] MEDS: SODIUM CHLOR 0.9% 1000 ML INJ 1,000 ML IV SCH ×2 (09:23)
[2017-01-18 09:27] LABS: ANION GAP 8 MEQ/L (5-15); AST (GOT) 22 U/L (15-37); BLOOD UREA NITROGEN 9 MG/DL (7-18); CHLORIDE 105 MEQ/L (98-107); GLOMERULAR FILTRATION RATE 84 ML/MIN (>89); POTASSIUM 3.8 MEQ/L (3.5-5.1); SODIUM (NA) 138 MEQ/L (136-145)
[2017-01-18 09:29] LABS: ALT (GPT) 28 U/L (10-53)
[2017-01-18 09:30] LABS: ALKALINE PHOSPHATASE 118 U/L (45-117); TOTAL BILIRUBIN ADULT 0.4 MG/DL (0.2-1.0)
--- NOTE | 2017-01-18 09:30 | HHI.PR ---
Subjective Remarks Patient awake and alert ambulating about the room. Patient reports feeling well overall continues to have pain with taking a deep breath offers no other complaints at this time Objective Vitals Vital Signs Date Time Temp Pulse Resp B/P (MAP) Pulse Ox O2 Delivery O2 Flow Rate FiO2 01/18/17 04:45 97.3 80 18 100/65 (77) 92 01/17/17 23:35 98.3 100 16 117/80 (92) 92 01/17/17 20:30 98.6 101 16 98/69 (79) 96 01/17/17 20:00 Room Air 01/17/17 20:00 94 01/17/17 17:38 98 21 01/17/17 16:00 98.3 95 18 107/78 (88) 98 01/17/17 12:00 97.9 91 18 103/68 (80) 97 I/O 01/17/17 01/17/17 01/17/17 01/18/17 01/18/17 01/18/17 07:00 15:00 23:00 07:00 15:00 23:00 Intake Total 680 ml 1193 ml Output Total 400 ml Balance 280 ml 1193 ml Intake Oral 480 ml IV Total 200 ml 1193 ml Output Urine Total 400 ml # Bowel Movements 0 Result Diagram: 01/18/17 0830 01/17/17720 Other Results Laboratory Tests Test 01/17/17 00:27 01/17/17 07:21 01/18/17 08:30 Total Creatine Kinase 68 U/L 54 U/L Troponin I LESS THAN 0.02 NG/ML LESS THAN 0.02 NG/ML White Blood Count 4.7 TH/MM3 4.6 TH/MM3 Red Blood Count 4.03 MIL/MM3 4.33 MIL/MM3 Hemoglobin 10.7 GM/DL 11.2 GM/DL Hematocrit 32.3 % 34.7 % Mean Corpuscular Volume 80.2 FL 80.0 FL Mean Corpuscular Hemoglobin 26.6 PG 26.0 PG Mean Corpuscular Hemoglobin Concent 33.2 % 32.4 % Red Cell Distribution Width 16.6 % 16.2 % Platelet Count 273 TH/MM3 304 TH/MM3 Mean Platelet Volume 6.4 FL 6.4 FL Neutrophils (%) (Auto) 46.9 % 37.0 % Lymphocytes (%) (Auto) 39.8 % 47.4 % Monocytes (%) (Auto) 11.0 % 12.2 % Eosinophils (%) (Auto) 1.5 % 2.2 % Basophils (%) (Auto) 0.8 % 1.2 % Neutrophils # (Auto) 2.2 TH/MM3 1.7 TH/MM3 Lymphocytes # (Auto) 1.9 TH/MM3 2.2 TH/MM3 Monocytes # (Auto) 0.5 TH/MM3 0.6 TH/MM3 Eosinophils # (Auto) 0.1 TH/MM3 0.1 TH/MM3 Basophils # (Auto) 0.0 TH/MM3 0.1 TH/MM3 CBC Comment DIFF FINAL DIFF FINAL Differential Comment Prothrombin Time 11.8 SEC Prothromb Time International Ratio 1.1 RATIO Blood Urea Nitrogen 12 MG/DL Creatinine 0.81 MG/DL Random Glucose 84 MG/DL Total Protein 7.0 GM/DL Albumin 3.0 GM/DL Calcium Level 8.4 MG/DL Phosphorus Level 3.8 MG/DL Magnesium Level 1.8 MG/DL Alkaline Phosphatase 113 U/L Aspartate Amino Transf (AST/SGOT) 21 U/L Alanine Aminotransferase (ALT/SGPT) 27 U/L Total Bilirubin 0.5 MG/DL Sodium Level 140 MEQ/L Potassium Level 3.6 MEQ/L Chloride Level 107 MEQ/L Carbon Dioxide Level 24.4 MEQ/L Anion Gap 9 MEQ/L Estimat Glomerular Filtration Rate 85 ML/MIN Hemoglobin A1c 5.0 % Free Thyroxine 1.08 NG/DL Thyroid Stimulating Hormone 3rd Gen 3.280 uIU/ML Ethyl Alcohol Level LESS THAN 3 MG/DL Imaging Last Impressions Lower Extremity Ultrasound 01/17/17 0000 Signed Impressions: Service Date/Time: December 09:14 - CONCLUSION: Normal examination. Sebastien Moore MD Objective Remarks GENERAL: This is a well-nourished, well-developed patient, female, in no apparent distress. SKIN: No rashes, ecchymoses or lesions. Cool and dry. no digital ischemia, no splinter hemorrhages EYES: Extraocular motions intact. No injection or drainage. NECK: Trachea midline. No JVD CARDIOVASCULAR: Regular rate and rhythm murmur noted RESPIRATORY: Clear to auscultation. Breath sounds equal bilaterally. No wheezes , rales, or rhonchi. GASTROINTESTINAL: Abdomen soft, non-tender, nondistended. No guarding. MUSCULOSKELETAL: Extremities without clubbing, cyanosis, or edema. No calf tenderness. NEUROLOGICAL: Awake and alert.Motor and sensory grossly within normal limits. Normal speech. A/P Problem List: (1) Pulmonary embolism ICD Code: I26.99 - Other pulmonary embolism without acute cor pulmonale (2) Pulmonary infarct ICD Code: I26.99 - Other pulmonary embolism without acute cor pulmonale Assessment and Plan Pulmonary embolism- right lower lobe CTA- Right lower lobe pulmonary emboli. Patchy densities in the lower lobes and right upper lobe could be infectious/inflammatory. Pulmonary infarcts suspected in the right lower lobe. There are some scattered cavitary densities greater in the right lower lobe of uncertain etiology but could be infectious, related to septic emboli or cystic lung disease. Continue Lovenox 70 mg SC Q12H, patient's weight 71.7 kg Consult pulmonology Right lower lobe pulmonary infarct Most likely septic emboli Consult to ID, patient with recent bacteremia MSSA, endocarditis and vegetation of tricuspid valve Blood cultures negative x 1 day Patient developed rash from Vancomycin (01/17/17)- which was Dc'd Now on Cefazolin per ID Transthoracic echo (01/17/17) . Severe tricuspid regurgitation estimated pulmonary arterial pressure 35.8 mmHg mild thickening of the tricuspid valve leaflet. No vegetation noted Discussed with Dr. Mosley ID- no KALIN at this time continue to follow DVT prophylaxis patient on Lovenox. Discussed with patient and Pascale Patel Jan 18, 2017 09:29
[2017-01-18] MEDS ORDERED: PHARMACY ORDERED LAB ONE (09:45)
[2017-01-19 03:40] VITALS: BP 111/74; PULSE 84; RESP 16; TEMP 98.1; O2SAT 96
[2017-01-19] MEDS: ceFAZolin 2 GM PREMIX 50 ML IV SCH ×3 (04:30→21:03)
[2017-01-19] MEDS: ENOXAPARIN SODIUM 80 MG/0.8 ML SYRINGE SQ SCH ×2 (04:30→18:00)
[2017-01-19] MEDS: LORazepam 0.5 MG TAB PO PRN ×3 (04:30→21:43)
[2017-01-19 08:00] VITALS: BP 110/62; PULSE 88; RESP 18; TEMP 97.5; O2SAT 96
[2017-01-19] MEDS: FOLIC ACID 1 MG TAB PO SCH (08:52)
[2017-01-19] MEDS: THIAMINE HCL 100 MG TAB PO SCH (08:52)
[2017-01-19] MEDS: PANTOPRAZOLE SOD 40 MG DELAYED RELEASE TAB PO SCH (08:52)
[2017-01-19] MEDS: MULTIVITAMINS/MINERALS THERAPEUTIC TAB PO SCH (08:52)
[2017-01-19] MEDS: DOCUSATE SODIUM 50 MG/SENNA 8.6 MG TAB PO SCH ×2 (08:53→21:00)
[2017-01-19] MEDS: SODIUM CHLORIDE 0.9% FLUSH 10 ML FLUSH IV FLUSH SCH ×2 (08:53→21:03)
--- NOTE | 2017-01-19 09:40 | HHI.PR ---
Subjective Remarks up and ambulating, no complains of chest pains or shortness of breath or leg pain no nausea or vomiting no fever or chills Objective Vitals Vital Signs Date Time Temp Pulse Resp B/P (MAP) Pulse Ox O2 Delivery O2 Flow Rate FiO2 01/19/17 08:00 97.5 88 18 110/62 (78) 96 01/19/17 03:40 98.1 84 16 111/74 (86) 96 01/18/17 23:38 97.9 91 16 119/66 (83) 95 01/18/17 20:00 103 01/18/17 20:00 99.4 103 16 113/76 (88) 97 01/18/17 20:00 Room Air 01/18/17 16:00 97.5 105 18 127/84 (98) 96 01/18/17 12:00 97.4 99 18 109/74 (86) 96 I/O 01/18/17 01/18/17 01/18/17 01/19/17 01/19/17 01/19/17 07:00 15:00 23:00 07:00 15:00 23:00 Intake Total 1200 ml 360 ml Output Total 1000 ml Balance 1200 ml -640 ml Intake Oral 1200 ml 360 ml Output Urine Total 1000 ml # Voids 5 # Bowel Movements 0 Result Diagram: 01/18/17 0830 01/18/17 0830 Imaging Last Impressions Lower Extremity Ultrasound 01/17/17 0000 Signed Impressions: Service Date/Time: December 09:14 - CONCLUSION: Normal examination. Sebastien Moore MD Objective Remarks awake and alert, no acute distress, good sats at room air anicteric lungs clear, no rales regular rhythm, tachycardic, + 3/6 systolic murmur left sternal border abdomen soft, nontender UE- no phlebitis lower extremities- no edema, no calf swelling. good epripheral pulses gait steady A/P Problem List: (1) Pulmonary embolism ICD Code: I26.99 - Other pulmonary embolism without acute cor pulmonale (2) Pulmonary infarct ICD Code: I26.99 - Other pulmonary embolism without acute cor pulmonale Assessment and Plan 26 years old female Pulmonary embolism - right lower lobe CTA- Right lower lobe pulmonary emboli. Patchy densities in the lower lobes and right upper lobe could be infectious/inflammatory. Pulmonary infarcts suspected in the right lower lobe. There are some scattered cavitary densities greater in the right lower lobe of uncertain etiology but could be infectious, related to septic emboli or cystic lung disease. Continue Lovenox 70 mg SC Q12HDr. White- ff along with us- Pulmonary service If no plans for any procedure- will start OAC Right lower lobe pulmonary infarct Most likely septic emboli Recent bacteremia MSSA, endocarditis and vegetation of tricuspid valve repat Blood cultures negative so far Patient developed rash from Vancomycin (01/17/17)- which was Dc'd on Cefazolin per ID Transthoracic echo (01/17/17) . Severe tricuspid regurgitation estimated pulmonary arterial pressure 35.8 mmHg mild thickening of the tricuspid valve leaflet. No vegetation noted ID service - Dr. Mosley ID- no KALIN at this time continue to follow CT surgery consulted History of IVDU in the past -patient very motivated and has been clean for months DVT prophylaxis patient on Lovenox. d/w patient at length- specifically course and pain Manuela Sims MD Jan 19, 2017 09:40
[2017-01-19 09:55] VITALS: O2SAT 94
[2017-01-19 12:00] VITALS: BP 120/83; PULSE 97; RESP 18; TEMP 97.5; O2SAT 98
--- NOTE | 2017-01-19 15:04 | HHI.PR ---
Addendum to Inpatient Note Additional Information Full note to follow Pt seen today around [address] chest from this admission w/o new lesions, previous lesion mostly improved Severe TR + some SOB, FAULKNER, improved over last week BC neg dw family @ b/s Shana Mosley MD Jan 19, 2017 15:04
[2017-01-19 16:00] VITALS: BP 123/79; PULSE 104; RESP 18; TEMP 98.7; O2SAT 97
[2017-01-19 20:00] VITALS: BP 116/72; PULSE 101; PULSE 94; RESP 18; TEMP 98.2; O2SAT 98
--- NOTE | 2017-01-19 22:31 | HHI.IDPN ---
Subjective Subjective Remarks delayed note Pt seen today around 1430 pt co intermittent chest pain today afebrile no cough, no hemoptysys or expectoration CT chest from this admission w/o new lesions, previous lesion mostly improved Severe TR + some SOB, FAULKNER, improved over last week BC neg Antibiotics CFTX Allergies: Coded Allergies: vancomycin (Verified Allergy, Intermediate, Rash, 01/19/17) Objective . Vital Signs Date Time Temp Pulse Resp B/P (MAP) Pulse Ox O2 Delivery O2 Flow Rate FiO2 01/19/17 20:00 Room Air 01/19/17 20:00 94 01/19/17 20:00 98.2 101 18 116/72 (87) 98 01/19/17 16:00 98.7 104 18 123/79 (94) 97 01/19/17 12:00 97.5 97 18 120/83 (95) 98 01/19/17 09:55 94 21 01/19/17 08:00 97.5 88 18 110/62 (78) 96 01/19/17 07:00 Room Air 01/19/17 03:40 98.1 84 16 111/74 (86) 96 01/18/17 23:38 97.9 91 16 119/66 (83) 95 01/19/17 01/19/17 01/20/17 15:00 23:00 07:00 Intake Total 960 ml Output Total 700 ml Balance 260 ml Intake Oral 960 ml Output Urine Total 700 ml # Voids 3 # Bowel Movements 1 . Laboratory Tests Test 01/18/17 08:30 White Blood Count 4.6 TH/MM3 Red Blood Count 4.33 MIL/MM3 Hemoglobin 11.2 GM/DL Hematocrit 34.7 % Mean Corpuscular Volume 80.0 FL Mean Corpuscular Hemoglobin 26.0 PG Mean Corpuscular Hemoglobin Concent 32.4 % Red Cell Distribution Width 16.2 % Platelet Count 304 TH/MM3 Mean Platelet Volume 6.4 FL Neutrophils (%) (Auto) 37.0 % Lymphocytes (%) (Auto) 47.4 % Monocytes (%) (Auto) 12.2 % Eosinophils (%) (Auto) 2.2 % Basophils (%) (Auto) 1.2 % Neutrophils # (Auto) 1.7 TH/MM3 Lymphocytes # (Auto) 2.2 TH/MM3 Monocytes # (Auto) 0.6 TH/MM3 Eosinophils # (Auto) 0.1 TH/MM3 Basophils # (Auto) 0.1 TH/MM3 CBC Comment DIFF FINAL Differential Comment Laboratory Tests Test 01/18/17 08:30 Blood Urea Nitrogen 9 MG/DL Creatinine 0.82 MG/DL Random Glucose 88 MG/DL Total Protein 7.3 GM/DL Albumin 3.3 GM/DL Calcium Level 8.9 MG/DL Alkaline Phosphatase 118 U/L Aspartate Amino Transf (AST/SGOT) 22 U/L Alanine Aminotransferase (ALT/SGPT) 28 U/L Total Bilirubin 0.4 MG/DL Sodium Level 138 MEQ/L Potassium Level 3.8 MEQ/L Chloride Level 105 MEQ/L Carbon Dioxide Level 25.0 MEQ/L Anion Gap 8 MEQ/L Estimat Glomerular Filtration Rate 84 ML/MIN Microbiology Date/Time Source Procedure Growth Status 01/18/17 22:30 Sputum Expectorated Sputum Gram Stain - Final Resulted 01/18/17 22:30 Sputum Expectorated Sputum Sputum Culture - Preliminary IMMATURE GROWTH - REINCUBATE Resulted Imaging Last Impressions Lower Extremity Ultrasound 01/17/17 0000 Signed Impressions: Service Date/Time: , January 17, 2017 09:14 - CONCLUSION: Normal examination. Sebastien Moore MD Physical Exam CONSTITUTIONAL/GENERAL: This is an adequately nourished patient, in no apparent distress. TUBES/LINES/DRAINS: SKIN: No jaundice, rashes, or lesions. Skin temperature appropriate. Not diaphoretic. CARDIOVASCULAR: Regular rate and rhythm without murmurs, gallops, or rubs. No JVD. Peripheral pulses symmetric. RESPIRATORY/CHEST: Symmetric, unlabored respirations. Clear to auscultation. Breath sounds equal bilaterally. No wheezes, rales, or rhonchi. GASTROINTESTINAL: Abdomen soft, non-tender, nondistended. No hepato-splenomegaly , or palpable masses. No guarding. Bowel sounds present. MUSCULOSKELETAL: Extremities without clubbing, cyanosis, or edema. No joint effusion noted. No mottling or clubbing. LYMPHATICS: No palpable cervical or supraclavicular adenopathy. NEUROLOGICAL: Awake and alert. Motor and sensory grossly within normal limits. Follows commands. Clear speech. Moves all extremities. PSYCHIATRIC: No obvious anxiety/depression. no apparent hallucinations or other psychotic thought process. 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
[2017-01-20] VITALS (9 sets, daily range): BP systolic 110–127; BP diastolic 60–82; PULSE 88–104; RESP 16–20; TEMP 97.7–98.7; O2SAT 95–100
[2017-01-20] MEDS: ceFAZolin 2 GM PREMIX 50 ML IV SCH ×3 (06:00→21:23)
[2017-01-20] MEDS: ENOXAPARIN SODIUM 80 MG/0.8 ML SYRINGE SQ SCH ×2 (06:01→18:08)
[2017-01-20] MEDS: LORazepam 0.5 MG TAB PO PRN ×3 (06:05→23:36)
[2017-01-20] MEDS ORDERED: PILL SPLITTER OTHER PRN (08:15)
--- NOTE | 2017-01-20 08:18 | HHI.PR ---
Subjective Remarks no complains ambulating around- doing "laps" no chest pains or shortness of breath sats good at room air Objective Vitals Vital Signs Date Time Temp Pulse Resp B/P (MAP) Pulse Ox O2 Delivery O2 Flow Rate FiO2 01/20/17 04:00 Room Air 01/20/17 04:00 98.4 92 16 122/60 (80) 97 01/20/17 00:00 98.3 104 16 111/72 (85) 98 01/20/17 00:00 Room Air 01/19/17 20:00 Room Air 01/19/17 20:00 94 01/19/17 20:00 98.2 101 18 116/72 (87) 98 01/19/17 16:00 98.7 104 18 123/79 (94) 97 01/19/17 12:00 97.5 97 18 120/83 (95) 98 01/19/17 09:55 94 21 I/O 01/19/17 01/19/17 01/19/17 01/20/17 01/20/17 01/20/17 07:00 15:00 23:00 07:00 15:00 23:00 Intake Total 360 ml 960 ml 480 ml Output Total 1000 ml 700 ml 900 ml Balance -640 ml 260 ml -420 ml Intake Oral 360 ml 960 ml 480 ml Output Urine Total 1000 ml 700 ml 900 ml # Voids 3 # Bowel Movements 0 1 Result Diagram: 01/18/17 0830 01/18/17 0830 Imaging Last Impressions Lower Extremity Ultrasound 01/17/17 0000 Signed Impressions: Service Date/Time: December 09:14 - CONCLUSION: Normal examination. Sebastien Moore MD Objective Remarks awake and alert, no acute distress, good sats at room air anicteric lungs clear, no rales regular rhythm, + 3/6 systolic murmur left sternal border abdomen soft, nontender lower extremities- no edema, no calf swelling. good peripheral pulses A/P Problem List: (1) Pulmonary embolism ICD Code: I26.99 - Other pulmonary embolism without acute cor pulmonale (2) Pulmonary infarct ICD Code: I26.99 - Other pulmonary embolism without acute cor pulmonale Assessment and Plan 26 years old female Pulmonary embolism - right lower lobe likely from TR with vegetation- repeat echo 01/17- no vegetation right lower lobe pulmonary infarct Possible Septic Emboli CTA- Right lower lobe pulmonary emboli. Patchy densities in the lower lobes and right upper lobe could be infectious/inflammatory. Pulmonary infarcts suspected in the right lower lobe. There are some scattered cavitary densities greater in the right lower lobe of uncertain etiology but could be infectious, related to septic emboli or cystic lung disease. Continue Lovenox [address] Q[address]. Ramirez- ff along with us- Pulmonary service If no plans for any procedure- start OAC- d/w Dr. Ramirez and Dr. Vick - get a cardiology consult/ff up for input- repeat KALIN will get a repeat CTA of the chest to verify-/confirm PE- Recent bacteremia MSSA, endocarditis and vegetation of tricuspid valve repat Blood cultures negative so far Patient developed rash from Vancomycin (01/17/17)- which was Dc'd on Cefazolin per ID Transthoracic echo (01/17/17) . Severe tricuspid regurgitation estimated pulmonary arterial pressure 35.8 mmHg mild thickening of the tricuspid valve leaflet. No vegetation noted this time will consult Cardiology in am- review Echo- vegetation - not noted on this echo - ? need for repeat KALIN- timing ID service - Dr. Mosley ID- no KALIN at this time continue to follow CT surgery consulted- d/w Dr. Vick- repeat Echo shows no vegetation- -d/w we will consult Cardiology to review for recommendation- ? repeat KALIN to confirm - vegetation not seen on recent echo 01/17 History of IVDU in the past -patient very motivated and has been clean for months -denies chronic alcohol use -not asking for any pain meds- will DC prn IV Morphine - Ativan to 0.25 mg po q 8 prn DVT prophylaxis patient on Lovenox. ADD: d/w Dr. Vick, Dr. Ramirez and family Manuela Mendoza MD Jan 20, 2017 08:18
[2017-01-20] MEDS: DOCUSATE SODIUM 50 MG/SENNA 8.6 MG TAB PO SCH ×2 (09:00→21:00)
[2017-01-20] MEDS: PANTOPRAZOLE SOD 40 MG DELAYED RELEASE TAB PO SCH (09:53)
[2017-01-20] MEDS: SODIUM CHLORIDE 0.9% FLUSH 10 ML FLUSH IV FLUSH SCH ×2 (09:54→21:27)
--- NOTE | 2017-01-20 11:08 | PD.CAR.PN ---
CVT Progress Note Subjective/Hospital Course: Pt examined and chart reviewed. Full consult dictated. No surgical therapy at the present time. Ok to discharge from my standpoint. Needs to establish a PCP. Objective: Vital Signs Date Time Temp Pulse Resp B/P (MAP) Pulse Ox O2 Delivery O2 Flow Rate FiO2 01/20/17 08:20 97 21 01/20/17 08:00 97.7 89 16 115/70 (85) 95 01/20/17 04:00 Room Air 01/20/17 04:00 98.4 92 16 122/60 (80) 97 01/20/17 00:00 98.3 104 16 111/72 (85) 98 01/20/17 00:00 Room Air 01/19/17 20:00 Room Air 01/19/17 20:00 94 01/19/17 20:00 98.2 101 18 116/72 (87) 98 01/19/17 16:00 98.7 104 18 123/79 (94) 97 01/19/17 12:00 97.5 97 18 120/83 (95) 98 Result Diagram: 01/18/1782901/18/17829 Raul Vick MD Jan 20, 2017 11:08
--- NOTE | 2017-01-20 12:17 | MB ---
cc: PAWEL LOU MD DATE OF CONSULTATION: 01/20/[address] Jacques. REASON FOR CONSULTATION Tricuspid endocarditis. HISTORY OF PRESENT ILLNESS Ms. Zee is a 26-year-old white female with a known history of previous IV drug use and recent cocaine use, who was admitted a month ago with endocarditis and pneumonia and sepsis. She has undergone antibiotic treatment for that and now presented to the hospital for progressive dyspnea with chest pain, worse on exertion. Following admission she has undergone further workup including an echocardiogram which reveals tricuspid regurgitation but no evidence of tricuspid vegetation or endocarditis at the present time. I am now being consulted for further opinion regarding her valvular pathology and endocarditis. At the present time she is relatively comfortable on room air, ambulating with no difficulties. PAST MEDICAL HISTORY Significant for: 1. IV drug use. 2. History of tricuspid endocarditis. 3. Sepsis. 4. Pneumonia. PAST SURGICAL HISTORY Unremarkable. ALLERGIES The patient reports allergies to VANCOMYCIN. MEDICATIONS ON ADMISSION Listed in the chart. FAMILY HISTORY Significant for lung cancer, otherwise noncontributory. SOCIAL HISTORY 1. As described above, history of IV drug use which she quit approximately two and a half years ago, although recently admitted to cocaine use before last admission. 2. Quit smoking 2 years ago. 3. Denies alcohol use. REVIEW OF SYSTEMS Review of systems as above. All other parameters are negative. PHYSICAL EXAMINATION VITAL SIGNS: Today she is 172 cm tall, weighs 73 kilos. Blood pressure is 115/70 with a heart rate of 89 which is regular, respiratory rate is 16 and she is afebrile. GENERAL: Well-developed female, no apparent distress. HEENT: Normocephalic, atraumatic. Pupils are round and reactive. Extraocular muscles intact. NECK: No cervical lymphadenopathy, carotid bruits or JVD. CARDIOVASCULAR: Regular rate and rhythm. Normal S1-S2 without gallops, rubs or murmurs. LUNGS: Clear to auscultation bilaterally with good air exchange. ABDOMEN: Soft, nontender, nondistended. Normoactive bowel sounds. No hepatosplenomegaly. EXTREMITIES: Bilateral lower extremity pulses are intact without cyanosis, clubbing or edema, no venous varicosities. NEUROLOGIC: Neurologically intact with no focal deficits. IMPRESSION 1. History of tricuspid endocarditis. 2. History of IV drug use. Recent Cocaine use 3. Sepsis and pneumonia. 4. Tricuspid regurgitation. PLAN The clinical and echo findings were discussed in detail with the patient today. At the present time she has no evidence of tricuspid vegetation or endocarditis actively. In regards to tricuspid regurgitation she needs to be followed up. If she remains drug-free, down the road tricuspid valve repair/ replacement may be indicated. At this time the issue is going to be the choice of valve given her age and drug use. With a mechanical valve she will be on lifelong anticoagulation therapy as well as require a permanent pacemaker. With a tissue valve, the longevity will be compromised and she will be on lifelong anticoagulation therapy as well. My recommendation would be for her to establish a primary care physician, followup clinically and if, in fact, the TR progresses and she remains drug- free then proceed with a complete workup including a repeat transesophageal echocardiography. Thank you for allowing me to participate in the care of your patient. Pawel ENRIQUE /11:02 AM /12:01 PM MTDRegina
--- NOTE | 2017-01-20 18:07 | MB ---
cc: Estefani TERRAZAS M.D. DATE OF CONSULTATION: 01/18/2017. NOTE: Original dictation done two days ago but there is no record of that, so I am re-dictating this. HISTORY OF PRESENT ILLNESS: Ms. 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 She presented with hemoptysis at that time and treatment was primarily related to the infection. She did well actually clinically. The hemoptysis resolved as she was started antibiotics. My understanding is that she was discharged home and followed up carefully with several weeks of IV antibiotics and returned to the emergency room on January 16 with shortness of breath. She had a CT scan at that time which I have reviewed with the radiologist and there had been substantial clearing of the lung abscesses with some residual infiltrate in the right midlung and a suspicion of a small clot in a right midlung blood vessel. Again, I reviewed that carefully with the radiologist. There are no other areas of thromboembolism but there is a fairly convincing defect in that right mid lung vessel. For this reason she was started on anticoagulation on presentation as well as continued on antibiotics. She was seen by infectious disease who felt that she had had an adequate course of therapy and to-date her cultures had been negative that had been done previously as an outpatient. She also had a sputum culture which was negative. Her white count is normal of 4700, hemoglobin is 10, platelet count of 304,000. She has had no hemoptysis during this hospitalization. She did have an echocardiogram though on 01/17, which revealed very significant tricuspid regurgitation but no vegetations are noted. The right atrium is mildly dilated as is the right ventricle. She was a former IV drug abuser, although she apparently has not used IV drugs for at least the last two or three years. I know on my history that I took on the last visit, she had used cocaine in the fairly recent past but none since discharge she says. No alcohol abuse history. She was a former smoker as well but has quit. SOCIAL HISTORY: Currently living with her grandparents. Her boyfriend is also apparently involved. He is here with her in the hospital. ALLERGIES: NONE KNOWN. PAST MEDICAL HISTORY: Quite unremarkable. No other major medical or surgical history. MEDICATIONS: Reviewed in the electronic medical record. PHYSICAL EXAMINATION: GENERAL: No distress at rest. No complaint of dyspnea at present. VITAL SIGNS: Room air saturations are 97% to 98%. She is afebrile, 116/72, respirations 18 and pulse is 80. HEAD, EYES, EARS, NOSE, THROAT: The sclerae are nonicteric. The mucous membranes are moist. NECK: No adenopathy in the neck. CHEST: Completely clear. No wheezes, rales or congestion. HEART: Soft systolic murmur. No audible S3. ABDOMEN: Soft. EXTREMITIES: She has no peripheral edema or cyanosis. Ms. Zee presents with possibly a thromboembolic event unrelated to the valve, although we cannot be certain that that is not the case. At this point, it does not appear that she has persistent infection. She has significant tricuspid regurgitation and cardiovascular surgery has seen her and they do not feel that surgical intervention is necessary at the present but should be followed carefully. Cardiology consultation is pending. We are going to repeat her CTA to see whether or not there is any other evidence of thromboembolism or whether or not this defect persists. As I explained to her and her family, it is remotely possible that this is all related to her underlying infectious endocarditis, although it is difficult to really clarify that on the basis of this one scan since it is a single isolated defect. Her legs were negative for emboli. Further diagnostic and/or therapeutic intervention will depend on her response and ongoing clinical course. R. MD TRI Lindsey/ZULEYMA /5:00 PM /5:55 PM
[2017-01-20] MEDS ORDERED: IOHEXOL 350 MG/ML 10 ML VIAL (for RAD DIAG) IVCONTRAST ONE (19:02)
--- NOTE | 2017-01-20 19:18 | RADRPT ---
EXAM DATE/TIME: 01/20/2017 18:55 [facility] COMPARISON: CT PULMONARY ANGIOGRAM, January 16, 2017, 15:36. INDICATIONS : Follow up septic emboli. IV CONTRAST: 76 cc Omnipaque 350 (iohexol) IV RADIATION DOSE: 23.18 CTDIvol (mGy) MEDICAL HISTORY : Cardiovascular disease. endocarditis SURGICAL HISTORY : None. ENCOUNTER: Subsequent ACUITY: 3 days PAIN SCALE: 2/10 LOCATION: chest TECHNIQUE: Volumetric scanning of the chest was performed using a pulmonary embolism protocol MIP images were re constructed. Using automated exposure control and adjustment of the mA and/or kV according to patien t size, radiation dose was kept as low as reasonably achievable to obtain optimal diagnostic quality images. DICOM format image data is available electronically for review and comparison. Follow-up recommendations for detected pulmonary nodules are based at a minimum on nodule size and pa tient risk factors according to Fleischner Society Guidelines. FINDINGS: PULMONARY ARTERIES: No filling defects are seen in the main pulmonary artery and right and left main pulmonary arteries. The left-sided pulmonary arteries are patent. Filling defects are again noted in the right lower lobe pulmonary arteries with abrupt termination of one of the arteries. This is in an area of consolidati on. LUNGS: Areas of consolidation remain in the right lower lobe. The previously noted cavitary lesions are unch anged. There is atelectasis and apparent scarring in the lung bases. There is a small stable cavitary lesion in the lingula. PLEURAE: There is no pleural thickening or pleural effusion. MEDIASTINUM: There is good visualization of the great vessels of the middle mediastinum. No evidence of mediastin al or hilar adenopathy/mass. MUSCULOSKELETAL: Within normal limits for patient age. MISCELLANEOUS: The visualized upper abdominal organs demonstrate no acute abnormality. CONCLUSION: 1. Pulmonary emboli again noted in the right lower lobe. 2. No significant change in the areas of consolidation and cavitary lesions. Kunal Rachel MD on January 20, 2017 at 19:09 Board Certified Radiologist. This report was verified electronically.
--- NOTE | 2017-01-20 22:16 | HHI.PR ---
Addendum to Inpatient Note Addendum Reason: Additional Documentation Additional Information I will be off January [address] Ennis is covering for me Shana Mosley MD Jan 20, 2017 22:16
[2017-01-21] VITALS (7 sets, daily range): BP systolic 97–120; BP diastolic 60–80; PULSE 83–99; RESP 16–20; TEMP 97.5–98.3; O2SAT 94–98
[2017-01-21] MEDS: ceFAZolin 2 GM PREMIX 50 ML IV SCH ×2 (05:48→12:06)
[2017-01-21] MEDS: ENOXAPARIN SODIUM 80 MG/0.8 ML SYRINGE SQ SCH ×2 (05:48→17:16)
[2017-01-21] MEDS: PANTOPRAZOLE SOD 40 MG DELAYED RELEASE TAB PO SCH (07:35)
[2017-01-21] MEDS: LORazepam 0.5 MG TAB PO PRN ×2 (07:35→16:10)
[2017-01-21] MEDS: DOCUSATE SODIUM 50 MG/SENNA 8.6 MG TAB PO SCH ×2 (07:36→22:04)
[2017-01-21] MEDS: SODIUM CHLORIDE 0.9% FLUSH 10 ML FLUSH IV FLUSH SCH ×2 (07:36→22:03)
--- NOTE | 2017-01-21 12:13 | HHI.IDPN ---
Note Infectious Disease Note ID COVERAGE - COVERING DR MAY Microbiology Date/Time Source Procedure Growth Status 01/18/17 22:30 Sputum Expectorated Sputum Gram Stain - Final Complete 01/18/17 22:30 Sputum Expectorated Sputum Sputum Culture - Final HEAVY GROWTH NORMAL RESPIRATORY ARY Complete Vital Signs Date Time Temp Pulse Resp B/P (MAP) Pulse Ox O2 Delivery O2 Flow Rate FiO2 01/21/17 08:00 97.5 99 20 109/66 (80) 98 01/21/17 07:49 96 01/21/17 07:41 Room Air 01/21/17 04:00 97.8 96 18 107/69 (82) 97 01/21/17 00:00 97.8 83 18 104/60 (75) 94 01/20/17 20:00 100 01/20/17 19:38 98.7 101 20 127/82 (97) 100 01/20/17 19:36 Room Air 01/20/17 16:00 97.8 94 16 113/74 (87) 98 SUBJECTIVE Cough is present Still has some pleuritic chest pains TTE on 01/17/17 - no vegetations Blood cultures - no growth patient states she feels good otherwise MEDICATIONS : reviewed , ABX - iv cefazolin GENERAL: Patient is in no acute distress. HEENT: EOMI, No icterus. NECK: Supple. LUNGS: Clear breath sounds. CARDIAC: Regular rate and rhythm ABDOMEN: Soft, non tender. EXTREMITIES: No CCE. SKIN: No rash. CLINICAL IMPRESSION : recent MSSA Endocarditis of the TV valve , s/p iv antibiotics therapy for at least 4 weeks - no features of active endocarditis at this time PE , involvement of left lower lobe arteries IVDU Left lower lobe consolidation , possible Bacterial Pneumonia RECOMENDATIONS: Discontinue iv cefazolin Start IV Unasyn Start po Zithromax x 7 days Obtain 2 additional sets of blood cultures today Discontinue TTE ordered by Dimitri since TTE was done on 01/17/17 - I juan antonio RN Pulmonary medicaine evaluation / management in progress - patient is on therapy for PE ID Will follow Mian Malagon MD Jan 21, 2017 12:13
--- NOTE | 2017-01-21 12:38 | HHI.PR ---
Subjective Remarks feeling better no chest discomfort or pain no diarrhea Objective Vitals Vital Signs Date Time Temp Pulse Resp B/P (MAP) Pulse Ox O2 Delivery O2 Flow Rate FiO2 01/21/17 08:00 97.5 99 20 109/66 (80) 98 01/21/17 07:49 96 01/21/17 07:41 Room Air 01/21/17 04:00 97.8 96 18 107/69 (82) 97 01/21/17 00:00 97.8 83 18 104/60 (75) 94 01/20/17 20:00 100 01/20/17 19:38 98.7 101 20 127/82 (97) 100 01/20/17 19:36 Room Air 01/20/17 16:00 97.8 94 16 113/74 (87) 98 I/O 01/20/17 01/20/17 01/20/17 01/21/17 01/21/17 01/21/17 07:00 15:00 23:00 07:00 15:00 23:00 Intake Total 480 ml 1250 ml 680 ml Output Total 900 ml 900 ml Balance -420 ml 1250 ml -220 ml Intake Oral 480 ml 1200 ml 680 ml IV Total 50 ml Output Urine Total 900 ml 900 ml # Voids 5 # Bowel Movements 0 Result Diagram: 01/18/17 0830 01/18/17 [address] Angiography 01/20/17 0000 Signed Impressions: Service Date/Time: Friday, January 20, 2017 18:55 - CONCLUSION: 1. Pulmonary emboli again noted in the right lower lobe. 2. No significant change in the areas of consolidation and cavitary lesions. Kunal Rachel MD Lower Extremity Ultrasound 01/17/17 0000 Signed Impressions: Service Date/Time: December 09:14 - CONCLUSION: Normal examination. Sebastien Moore MD Objective Remarks awake and alert, no acute distress, good sats at room air anicteric lungs clear, no rales regular rhythm, + 3/6 systolic murmur left sternal border abdomen soft, nontender lower extremities- no edema, no calf swelling. good peripheral pulses A/P Problem List: (1) Pulmonary embolism ICD Code: I26.99 - Other pulmonary embolism without acute cor pulmonale (2) Pulmonary infarct ICD Code: I26.99 - Other pulmonary embolism without acute cor pulmonale Assessment and Plan 26 years old female Pulmonary embolism - right lower lobe likely from TR with vegetation- repeat echo 01/17- no vegetation right lower lobe pulmonary infarct Continue Lovenox [address] Q[address]. Ramirez- ff along with us- Pulmonary service If no plans for any procedure- start OAC- d/w Dr. Ramirez and Dr. Vick - get a cardiology consult/ff up for input- repeat KALIN will get a repeat CTA of the chest to verify-/confirm PE- Recent bacteremia MSSA, endocarditis and vegetation of tricuspid valve repat Blood cultures negative so far Patient developed rash from Vancomycin (01/17/17)- which was Dc'd antibiotics - Unasyn - 01/21 by ID till 02/04. Zithromax till 01/28 Repeat blood cultures drawn 01/21 Transthoracic echo (01/17/17) . Severe tricuspid regurgitation estimated pulmonary arterial pressure 35.8 mmHg mild thickening of the tricuspid valve leaflet. No vegetation noted this time will consult Cardiology in am- review Echo- vegetation - not noted on this echo - ID service - Dr. Mosley ID- no KALIN at this time continue to follow CT surgery consulted- d/w Dr. Vick- repeat Echo shows no vegetation- ? eventual valvular surgery Cardiology consulted History of IVDU in the past -patient very motivated and has been clean for months -denies chronic alcohol use -not asking for any pain meds- will DC prn IV Morphine - Ativan to 0.25 mg po q 8 prn DVT prophylaxis patient on Lovenox. Manuela Jacques MD Jan 21, 2017 12:38
--- NOTE | 2017-01-21 12:48 | MB ---
cc: TOMAS DURHAM M.D. DATE OF CONSULTATION: 01/21/2017 REASON FOR CONSULTATION Evaluation of her tricuspid regurgitation. HISTORY OF PRESENT ILLNESS Nya Zee is a 26-year-old woman who has a history of drug use and endocarditis, apparently IV drug use was 2 years ago but I have no way to verify that. There has been evidence for recent drug use insofar as her tox screen from December 07 was positive for cocaine. She says she has not used since then. She came in primarily for shortness of breath. She has got evidence for possible pulmonary embolism and pulmonary infarct but also has significant tricuspid regurgitation. She has already been seen by Dr. Vick and I was asked to see for medical management. The patient does not have orthopnea or PND. She does notice dyspnea on exertion but has markedly abnormal chest x-ray still. She has had prior pneumonia. PAST MEDICAL HISTORY Notable for endocarditis, pneumonia, drug use. FAMILY HISTORY Family history is negative for coronary disease. SOCIAL HISTORY Quit smoking 2 years ago. Was using cocaine in November. Supposedly heavy drug use was 2 years ago. PHYSICAL EXAMINATION GENERAL: Well-developed, well-nourished pleasant female, in no acute distress. VITAL SIGNS: Charted. HEENT: Exam unremarkable. NECK: Shows mildly increased central venous pressure with significant V-waves. CHEST: Shows symmetrical breath sounds. No wheezes. CARDIAC: S1-S2, regular rate and rhythm. There is a 1-2/6 tricuspid regurgitation murmur that increases with inspiration. ABDOMEN: Soft. I do not see hepatosplenomegaly. EXTREMITIES: Reveal no peripheral edema. IMPRESSION Severe tricuspid regurgitation with previous tricuspid valve endocarditis. I do not see any evidence of right-sided heart failure. No need to add a diuretic at this point. The shortness of breath I think is more likely related to the pathology in her lungs. Will let pulmonary manage the possible pulmonary infarct and the lung problem she has had. At this point I do recommend tricuspid valve replacement, which is concordant with the opinion from Dr. Vick. Will be available to follow as needed. MD MELVIN Roach/RADHAL /12:15 PM /12:35 PM
[2017-01-21] MEDS: AZITHROMYCIN 250 MG TAB PO SCH (13:08)
[2017-01-21] MEDS ORDERED: AMPICILLIN-SULBACTAM INJ 3 GM VIAL IM SCH (14:00)
[2017-01-21] MEDS ORDERED: AMPICILLIN/SULBAC 3 GM/NS 100 ML IV SCH ×2 (14:00)
[2017-01-21] MEDS: AMPICILLIN/SULBAC 3 GM/NS 100 ML IV SCH ×4 (15:21→22:04)
[2017-01-22] VITALS (7 sets, daily range): BP systolic 102–119; BP diastolic 63–80; PULSE 91–108; RESP 16–18; TEMP 97.3–98.4; O2SAT 94–100
[2017-01-22] MEDS: LORazepam 0.5 MG TAB PO PRN ×3 (00:21→16:51)
[2017-01-22] MEDS: ZOLPIDEM TARTRATE 5 MG TAB PO PRN (00:21)
[2017-01-22] MEDS: AMPICILLIN/SULBAC 3 GM/NS 100 ML IV SCH ×4 (06:20→15:00)
[2017-01-22] MEDS: ENOXAPARIN SODIUM 80 MG/0.8 ML SYRINGE SQ SCH (06:20)
[2017-01-22] MEDS: PANTOPRAZOLE SOD 40 MG DELAYED RELEASE TAB PO SCH (08:43)
[2017-01-22] MEDS: AZITHROMYCIN 250 MG TAB PO SCH (08:43)
[2017-01-22] MEDS: DOCUSATE SODIUM 50 MG/SENNA 8.6 MG TAB PO SCH ×2 (08:45→21:00)
[2017-01-22] MEDS: SODIUM CHLORIDE 0.9% FLUSH 10 ML FLUSH IV FLUSH SCH ×2 (08:46→21:25)
--- NOTE | 2017-01-22 12:59 | HHI.PR ---
Subjective Remarks feeling better , in better spirits d/w her course of antibiotics no chest pain or shortness of breath Objective Vitals Vital Signs Date Time Temp Pulse Resp B/P (MAP) Pulse Ox O2 Delivery O2 Flow Rate FiO2 01/22/17 12:08 97.9 91 18 102/63 (76) 98 01/22/17 09:00 98 Room Air 01/22/17 08:12 97.8 92 18 109/78 (88) 97 01/22/17 04:00 97.3 95 16 117/71 (86) 94 01/22/17 00:00 98.1 97 17 117/80 (92) 95 01/21/17 22:05 Room Air 01/21/17 22:00 98.3 97 17 112/80 (91) 98 01/21/17 16:00 98.2 98 16 120/76 (91) 94 I/O 01/21/17 01/21/17 01/21/17 01/22/17 01/22/17 01/22/17 07:00 15:00 23:00 07:00 15:00 23:00 Intake Total 680 ml 1780 ml 860 ml Output Total 900 ml Balance -220 ml 1780 ml 860 ml Intake Oral 680 ml 1680 ml 860 ml IV Total 100 ml Output Urine Total 900 ml # Voids 13 6 # Bowel Movements 0 Result Diagram: 01/18/17 0830 01/18/17 [address] Angiography 01/20/17 0000 Signed Impressions: Service Date/Time: Friday, January 20, 2017 18:55 - CONCLUSION: 1. Pulmonary emboli again noted in the right lower lobe. 2. No significant change in the areas of consolidation and cavitary lesions. Kunal Rachel MD Lower Extremity Ultrasound 01/17/17 0000 Signed Impressions: Service Date/Time: December 09:14 - CONCLUSION: Normal examination. Sebastien Moore MD Objective Remarks awake and alert, no acute distress, good sats at room air anicteric lungs clear, no rales regular rhythm, + 3/6 systolic murmur left sternal border abdomen soft, nontender lower extremities- no edema, no calf swelling. good peripheral pulses A/P Problem List: (1) Pulmonary embolism ICD Code: I26.99 - Other pulmonary embolism without acute cor pulmonale (2) Pulmonary infarct ICD Code: I26.99 - Other pulmonary embolism without acute cor pulmonale Assessment and Plan 26 years old female Pulmonary embolism - right lower lobe likely from TR with vegetation- repeat echo 01/17- no vegetation right lower lobe pulmonary infarct on Lovenox 70 mg SC Q12H- DC and change to Eliquis 10 mg po bid x 7 days today 01/22 then [address] Ramirez- along with us- Pulmonary service Recent bacteremia MSSA, endocarditis and vegetation of tricuspid valve repat Blood cultures negative so far Patient developed rash from Vancomycin (01/17/17)- which was Dc'd antibiotics changed to Unasyn 01/21 by ID till 02/04.. Zithormax till 01/28 Repeat blood cultures drawn 01/21 Transthoracic echo (01/17/17) . Severe tricuspid regurgitation estimated pulmonary arterial pressure 35.8 mmHg mild thickening of the tricuspid valve leaflet. No vegetation noted this time cardiology consulted. Echo- vegetation - not noted on this echo - ID service - Dr. Mosley ID- no KALIN at this time continue to follow History of IVDU in the past -patient very motivated and has been clean for months -denies chronic alcohol use -not asking for any pain meds- will DC prn IV Morphine - Ativan to 0.25 mg po q 8 prn DVT prophylaxis patient on Lovenox. Manuela Jacques MD Jan 22, 2017 12:59
[2017-01-22] MEDS: APIXABAN 5 MG TABLET PO SCH (21:25)
[2017-01-23] VITALS (7 sets, daily range): BP systolic 107–123; BP diastolic 69–81; PULSE 90–105; RESP 16–18; TEMP 97.1–98.2; O2SAT 96–100
[2017-01-23] MEDS: ZOLPIDEM TARTRATE 5 MG TAB PO PRN (00:53)
[2017-01-23] MEDS: AMPICILLIN/SULBAC 3 GM/NS 100 ML IV SCH ×4 (00:53→06:10)
[2017-01-23] MEDS: LORazepam 0.5 MG TAB PO PRN ×3 (00:53→17:03)
[2017-01-23] MEDS: SODIUM CHLORIDE 0.9% FLUSH 10 ML FLUSH IV FLUSH SCH ×2 (07:25→21:00)
--- NOTE | 2017-01-23 07:57 | HHI.PR ---
Subjective Remarks feels great, up and ambulating no discomfort no chest pains or shortness of breath in very good spirits Objective Vitals Vital Signs Date Time Temp Pulse Resp B/P (MAP) Pulse Ox O2 Delivery O2 Flow Rate FiO2 01/23/17 04:00 97.1 90 18 111/71 (84) 97 01/23/17 00:00 98.2 94 18 107/69 (82) 100 01/22/17 20:26 98.4 108 18 119/67 (84) 100 01/22/17 20:00 Room Air 01/22/17 16:23 98.3 107 17 115/70 (85) 95 01/22/17 12:08 97.9 91 18 102/63 (76) 98 01/22/17 09:00 98 Room Air 01/22/17 08:12 97.8 92 18 109/78 (88) 97 01/22/17 08:00 103 I/O 01/22/17 01/22/17 01/22/17 01/23/17 01/23/17 01/23/17 07:00 15:00 23:00 07:00 15:00 23:00 Intake Total 860 ml 840 ml Output Total 1000 ml Balance 860 ml -160 ml Intake Oral 860 ml 840 ml Output Urine Total 1000 ml # Voids 6 0 # Bowel Movements [address] Angiography 01/20/17 0000 Signed Impressions: Service Date/Time: Friday, January 20, 2017 18:55 - CONCLUSION: 1. Pulmonary emboli again noted in the right lower lobe. 2. No significant change in the areas of consolidation and cavitary lesions. Kunal Rachel MD Lower Extremity Ultrasound 01/17/17 0000 Signed Impressions: Service Date/Time: December 09:14 - CONCLUSION: Normal examination. Sebastien Moore MD Objective Remarks awake and alert, no acute distress, good sats at room air anicteric lungs clear, no rales regular rhythm, + 3/6 systolic murmur left sternal border abdomen soft, nontender lower extremities- no edema, no calf swelling. good peripheral pulses A/P Problem List: (1) Pulmonary embolism ICD Code: I26.99 - Other pulmonary embolism without acute cor pulmonale (2) Pulmonary infarct ICD Code: I26.99 - Other pulmonary embolism without acute cor pulmonale Assessment and Plan 26 years old female Pulmonary embolism - right lower lobe likely from TR with vegetation- repeat echo 01/17- no vegetation right lower lobe pulmonary infarct Lovenox DC- started on Eliquis 01/21 Dr. Ramirez- ff along with us- Pulmonary service seen by Cardiology- needs Valvular surgery eventually CVsurgery ff- needs valvular replacement eventually- will d/w them timing- patient has been drug free for monthsbut admitted to one time use last dec 07- seems honest Recent bacteremia MSSA, endocarditis and vegetation of tricuspid valve Patient developed rash from Vancomycin (01/17/17)- which was Dc'd antibiotics - Unasyn - 01/21 by ID till 02/[address] Malagon- ID recommendation. Zithromax till 01/28 Repeated blood cultures drawn 01/22- negative so far Transthoracic echo (01/17/17) . Severe tricuspid regurgitation estimated pulmonary arterial pressure 35.8 mmHg mild thickening of the tricuspid valve leaflet. No vegetation noted this time ID service - Dr. Mosley ID- no KALIN at this time continue to follow CT surgery consulted- d/w Dr. Vick- repeat Echo shows no vegetation- ? eventual valvular surgery - History of IVDU in the past -patient very motivated and has been clean for months -denies chronic alcohol use -not asking for any pain meds- will DC prn IV Morphine - Ativan to 0.25 mg po q 8 prn DVT prophylaxis patient on eliquis. 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
[2017-01-23] MEDS: PANTOPRAZOLE SOD 40 MG DELAYED RELEASE TAB PO SCH (08:03)
[2017-01-23] MEDS: AZITHROMYCIN 250 MG TAB PO SCH (08:03)
[2017-01-23] MEDS: APIXABAN 5 MG TABLET PO SCH ×2 (08:03→22:05)
[2017-01-23] MEDS: DOCUSATE SODIUM 50 MG/SENNA 8.6 MG TAB PO SCH ×2 (08:04→21:00)
--- NOTE | 2017-01-23 13:42 | HHI.PR ---
Addendum to Inpatient Note Additional Information Pt seen around 1300 Full note to follow no co better cards pulm and /CT lee rec's noted and appreciated BC neg PE WNL Rec's: dc cefazoline cont azithro + augmenitn po OK to dc from ID standpoint Shana Mosley MD Jan 23, 2017 13:42
[2017-01-23] MEDS: AMOXICILLIN/CLAVULANATE K 500 MG TAB PO SCH ×2 (15:13→22:05)
--- NOTE | 2017-01-23 23:41 | HHI.IDPN ---
Subjective Subjective Remarks delayed note Pt seen around 1300 no co feels better cards pulm and /CT lee rec's noted and appreciated BC neg - final Antibiotics CFTX Allergies: Coded Allergies: vancomycin (Verified Allergy, Intermediate, Rash, 01/19/17) Objective . Vital Signs Date Time Temp Pulse Resp B/P (MAP) Pulse Ox O2 Delivery O2 Flow Rate FiO2 01/23/17 21:00 Room Air 01/23/17 16:00 98.0 96 18 123/71 (88) 98 01/23/17 12:00 98.0 100 18 109/69 (82) 96 01/23/17 11:19 Room Air 21 01/23/17 08:02 97.5 103 18 115/81 (92) 96 01/23/17 08:00 105 01/23/17 04:00 97.1 90 18 111/71 (84) 97 01/23/17 00:00 98.2 94 18 107/69 (82) 100 01/23/17 01/23/17 01/24/17 15:00 23:00 07:00 Intake Total 720 ml Output Total 1200 ml Balance -480 ml Intake Oral 720 ml Output Urine Total 1200 ml # Bowel Movements 1 . Microbiology Date/Time Source Procedure Growth Status 01/22/17 07:57 Blood Peripheral Aerobic Blood Culture - Preliminary NO GROWTH IN 1 DAY Resulted 01/22/17 07:57 Blood Peripheral Anaerobic Blood Culture - Preliminary NO GROWTH IN 1 DAY Resulted 01/22/17 07:50 Blood Peripheral Aerobic Blood Culture - Preliminary NO GROWTH IN 1 DAY Resulted 01/22/17 07:50 Blood Peripheral Anaerobic Blood Culture - Preliminary NO GROWTH IN 1 DAY Resulted 01/21/17 13:20 Sputum Expectorated Sputum Gram Stain - Final Complete 01/21/17 13:20 Sputum Expectorated Sputum Sputum Culture - Final HEAVY GROWTH NORMAL RESPIRATORY ARY Complete Imaging Last Impressions CT Angiography 01/20/17 0000 Signed Impressions: Service Date/Time: Friday, January 20, 2017 18:55 - CONCLUSION: 1. Pulmonary emboli again noted in the right lower lobe. 2. No significant change in the areas of consolidation and cavitary lesions. Kunal Rachel MD Lower Extremity Ultrasound 01/17/17 0000 Signed Impressions: Service Date/Time: December 09:14 - CONCLUSION: Normal examination. Sebastien Moore MD Physical Exam CONSTITUTIONAL/GENERAL: This is an adequately nourished patient, in no apparent distress. TUBES/LINES/DRAINS: SKIN: No jaundice, rashes, or lesions. Skin temperature appropriate. Not diaphoretic. CARDIOVASCULAR: Regular rate and rhythm without murmurs, gallops, or rubs. No JVD. Peripheral pulses symmetric. RESPIRATORY/CHEST: Symmetric, unlabored respirations. Clear to auscultation. Breath sounds equal bilaterally. No wheezes, rales, or rhonchi. GASTROINTESTINAL: Abdomen soft, non-tender, nondistended. No hepato-splenomegaly , or palpable masses. No guarding. Bowel sounds present. MUSCULOSKELETAL: Extremities without clubbing, cyanosis, or edema. No joint effusion noted. No mottling or clubbing. LYMPHATICS: No palpable cervical or supraclavicular adenopathy. NEUROLOGICAL: Awake and alert. Motor and sensory grossly within normal limits. Follows commands. Clear speech. Moves all extremities. PSYCHIATRIC: No obvious anxiety/depression. no apparent hallucinations or other psychotic thought process. Assessment & Plan Remarks Recent MSSA tricuspid valve endocarditis with pulmonary septic emboli and hemoptyssi completed 4 weeks of abx Now with PE, pulmonary infacts Blood clx are negative @ 1 day 2 D echo with sever TR and thickening Rec's: dc cefazoline cont azithro + augmenitn po OK to dc from ID standpoint Discussed Condition With family at b/s Shana Mosley MD Jan 23, 2017 23:40
[2017-01-24] VITALS: BP 127/71; PULSE 104; RESP 18; TEMP 98.4; O2SAT 96
[2017-01-24] MEDS: LORazepam 0.5 MG TAB PO PRN ×3 (01:15→20:33)
[2017-01-24] MEDS: ZOLPIDEM TARTRATE 5 MG TAB PO PRN (01:15)
[2017-01-24 04:00] VITALS: BP 104/59; PULSE 99; RESP 16; TEMP 98.4; O2SAT 96
[2017-01-24] MEDS: AMOXICILLIN/CLAVULANATE K 500 MG TAB PO SCH ×3 (04:56→21:06)
[2017-01-24 08:00] VITALS: BP 103/68; PULSE 109; RESP 20; TEMP 98.2; O2SAT 97
[2017-01-24] MEDS: DOCUSATE SODIUM 50 MG/SENNA 8.6 MG TAB PO SCH ×2 (09:37→20:05)
[2017-01-24] MEDS: PANTOPRAZOLE SOD 40 MG DELAYED RELEASE TAB PO SCH (09:37)
[2017-01-24] MEDS: APIXABAN 5 MG TABLET PO SCH ×2 (09:38→20:33)
[2017-01-24] MEDS: SODIUM CHLORIDE 0.9% FLUSH 10 ML FLUSH IV FLUSH SCH ×2 (09:38→20:32)
[2017-01-24] MEDS: AZITHROMYCIN 250 MG TAB PO SCH (09:38)
--- NOTE | 2017-01-24 10:51 | HHI.PR ---
Subjective Remarks patient doing great no complains very motivated states she has been drug free since 2014 except for that one time in nov 2016 Objective Vitals Vital Signs Date Time Temp Pulse Resp B/P (MAP) Pulse Ox O2 Delivery O2 Flow Rate FiO2 01/24/17 08:00 98.2 109 20 103/68 (80) 97 01/24/17 04:00 98.4 99 16 104/59 (74) 96 01/24/17 00:00 98.4 104 18 127/71 (89) 96 01/23/17 21:00 Room Air 01/23/17 20:00 93 01/23/17 20:00 98.1 99 16 116/69 (85) 98 01/23/17 16:00 98.0 96 18 123/71 (88) 98 01/23/17 12:00 98.0 100 18 109/69 (82) 96 01/23/17 11:19 Room Air 21 I/O 01/23/17 01/23/17 01/23/17 01/24/17 01/24/17 01/24/17 07:00 15:00 23:00 07:00 15:00 23:00 Intake Total 200 ml 720 ml 480 ml Output Total 1200 ml 900 ml Balance 200 ml -480 ml -420 ml Intake Oral 720 ml 480 ml IV Total 200 ml Output Urine Total 1200 ml 900 ml # Voids 0 # Bowel Movements [address] Angiography 01/20/17 0000 Signed Impressions: Service Date/Time: Friday, January 20, 2017 18:55 - CONCLUSION: 1. Pulmonary emboli again noted in the right lower lobe. 2. No significant change in the areas of consolidation and cavitary lesions. Kunal Rachel MD Lower Extremity Ultrasound 01/17/17 0000 Signed Impressions: Service Date/Time: December 09:14 - CONCLUSION: Normal examination. Sebastien Moore MD Objective Remarks awake and alert, no acute distress, good sats at room air anicteric lungs clear, no rales regular rhythm, + 3/6 systolic murmur left sternal border abdomen soft, nontender lower extremities- no edema, no calf swelling. good peripheral pulses A/P Problem List: (1) Pulmonary embolism ICD Code: I26.99 - Other pulmonary embolism without acute cor pulmonale (2) Pulmonary infarct ICD Code: I26.99 - Other pulmonary embolism without acute cor pulmonale Assessment and Plan 26 years old female Pulmonary embolism - right lower lobe likely from TR with vegetation- repeat echo 01/17- no vegetation right lower lobe pulmonary infarct Lovenox DC- started on Eliquis 01/21 Dr. Ramirez- ff along with us- Pulmonary service seen by Cardiology- needs Valvular surgery eventually CVsurgery ff- needs valvular replacement eventually- will d/w them timing- patient has been drug free for months but admitted to one time use last dec 07- seems honest Recent bacteremia MSSA, endocarditis and vegetation of tricuspid valve Patient developed rash from Vancomycin (01/17/17)- which was Dc'd antibiotics - . Zithromax till 01/28. Po augmentin till 01/28. d/w Dr. Mosley Repeated blood cultures drawn 01/22- negative Transthoracic echo (01/17/17) . Severe tricuspid regurgitation estimated pulmonary arterial pressure 35.8 mmHg mild thickening of the tricuspid valve leaflet. No vegetation noted this time ID service - Dr. Mosley ID- no KALIN at this time continue to follow CT surgery consulted- d/w Dr. Vick- repeat Echo shows no vegetation- eventual valvular surgery -OP ff up in 4 weeks History of IVDU in the past -patient very motivated and has been clean since 2016 except for a one time use this time- now regretting it -denies chronic alcohol use -not asking for any pain meds-DC prn IV Morphine - Ativan to 0.25 mg po q 8 prn DVT prophylaxis patient on eliquis. Up and ambulating Will ask CM to be involve- needs OP ff up, meds assistance- Eliquis and insurance - RA patient needs eventual emt intermediate ff up with a PCP and subspecialist 01/23- her grandma is coming today to help with needs- paperwork etc if needed Manuela Jacques MD Jan 24, 2017 10:51
[2017-01-24 12:00] VITALS: BP 112/66; PULSE 94; RESP 20; TEMP 97.9; O2SAT 97
[2017-01-24 16:00] VITALS: BP 112/82; PULSE 89; RESP 20; TEMP 98.1; O2SAT 96
[2017-01-24] MEDS ORDERED: AUGM500T7 PO (18:25)
[2017-01-24] MEDS ORDERED: AZIT250T3 PO (18:25)
[2017-01-24] MEDS ORDERED: APIX5TAB PO (18:27)
[2017-01-24 20:00] VITALS: BP 116/79; PULSE 93; PULSE 98; RESP 18; TEMP 97.2; O2SAT 100
[2017-01-25] VITALS: BP 99/57; PULSE 94; RESP 18; TEMP 98.4; O2SAT 97
[2017-01-25] MEDS: ZOLPIDEM TARTRATE 5 MG TAB PO PRN (00:36)
[2017-01-25] MEDS: AMOXICILLIN/CLAVULANATE K 500 MG TAB PO SCH (06:35)
[2017-01-25 08:00] VITALS: BP 116/72; PULSE 113; PULSE 89; RESP 20; TEMP 97.6; O2SAT 97
[2017-01-25] MEDS: DOCUSATE SODIUM 50 MG/SENNA 8.6 MG TAB PO SCH (09:00)
[2017-01-25] MEDS: APIXABAN 5 MG TABLET PO SCH (09:27)
[2017-01-25] MEDS: PANTOPRAZOLE SOD 40 MG DELAYED RELEASE TAB PO SCH (09:27)
[2017-01-25] MEDS: LORazepam 0.5 MG TAB PO PRN (09:27)
[2017-01-25] MEDS: AZITHROMYCIN 250 MG TAB PO SCH (09:27)
[2017-01-25] MEDS: SODIUM CHLORIDE 0.9% FLUSH 10 ML FLUSH IV FLUSH SCH (09:28)
[2017-01-25 12:00] VITALS: BP 103/63; PULSE 96; RESP 18; TEMP 97.9; O2SAT 98
[2017-01-25] MEDS ORDERED: INFLUENZA VIRUS VACCINE (QUADRIVALENT) 0.5 ML SYR IM ONE (12:00)
--- NOTE | 2017-01-25 12:40 | HHI.PR ---
Subjective Remarks disucssed with aptient at length expressed understanding no shortness of breath with regular activity Objective Vitals Vital Signs Date Time Temp Pulse Resp B/P (MAP) Pulse Ox O2 Delivery O2 Flow Rate FiO2 01/25/17 08:00 97.6 113 20 116/72 (87) 97 01/25/17 00:00 98.4 94 18 99/57 (71) 97 01/24/17 20:51 Room Air 01/24/17 20:00 97.2 98 18 116/79 (91) 100 01/24/17 20:00 93 01/24/17 16:00 98.1 89 20 112/82 (92) 96 I/O 01/24/17 01/24/17 01/24/17 01/25/17 01/25/17 01/25/17 07:00 15:00 23:00 07:00 15:00 23:00 Intake Total 480 ml 240 ml Output Total 900 ml 900 ml Balance -420 ml -660 ml Intake Oral 480 ml 240 ml Output Urine Total 900 ml 900 ml # Voids 2 # Bowel Movements 0 1 [address] Angiography 01/20/17 0000 Signed Impressions: Service Date/Time: Friday, January 20, 2017 18:55 - CONCLUSION: 1. Pulmonary emboli again noted in the right lower lobe. 2. No significant change in the areas of consolidation and cavitary lesions. Kunal Rachel MD Lower Extremity Ultrasound 01/17/17 0000 Signed Impressions: Service Date/Time: December 09:14 - CONCLUSION: Normal examination. Sebastien Moore MD Objective Remarks awake and alert, no acute distress, good sats at room air anicteric lungs clear, no rales regular rhythm, + 3/6 systolic murmur left sternal border abdomen soft, nontender lower extremities- no edema, no calf swelling. good peripheral pulses A/P Problem List: (1) Pulmonary embolism ICD Code: I26.99 - Other pulmonary embolism without acute cor pulmonale (2) Pulmonary infarct ICD Code: I26.99 - Other pulmonary embolism without acute cor pulmonale Assessment and Plan 26 years old female Pulmonary embolism - right lower lobe likely from TR with vegetation- repeat echo 01/17- no vegetation right lower lobe pulmonary infarct Lovenox DC- started on Eliquis 01/21 Dr. Ramirez- ff along with us- Pulmonary service seen by Cardiology- needs Valvular surgery eventually CVsurgery ff- needs valvular replacement eventually- will d/w them timing- patient has been drug free for months but admitted to one time use last dec 07- seems honest Recent bacteremia MSSA, endocarditis and vegetation of tricuspid valve Patient developed rash from Vancomycin (01/17/17)- which was Dc'd antibiotics - . Zithromax till 01/28. Po augmentin till 01/28. d/w Dr. Mosley Repeated blood cultures drawn 01/22- negative Transthoracic echo (01/17/17) . Severe tricuspid regurgitation estimated pulmonary arterial pressure 35.8 mmHg mild thickening of the tricuspid valve leaflet. No vegetation noted this time ID service - Dr. Mosley ID- no KALIN at this time continue to follow CT surgery consulted- d/w Dr. Vick- repeat Echo shows no vegetation- eventual valvular surgery -OP ff up in 4 weeks History of IVDU in the past -patient very motivated and has been clean since 2015 except for a one time use this time- now regretting it -denies chronic alcohol use -not asking for any pain meds-DC prn IV Morphine - Ativan to 0.25 mg po q 8 prn DVT prophylaxis patient on eliquis. Up and ambulating Will ask CM to be involve- needs OP ff up, meds assistance- Eliquis and insurance - HCRA patient needs eventual jail ff up with a PCP and subspecialist 01/23- her grandma is coming today to help with needs- paperwork etc if needed Everything delivered to room DC home today OP ff up with Dr. ramirez in 2 weeks OP ff up with Dr. Vick in 4 weeks patient will set up with a PCP on her own for ff up Manuela Jacques MD Jan 25, 2017 12:40
--- NOTE | 2017-01-25 12:41 | HHI.DS ---
Discharge Summary Admission Date Jan 16, 2017 at 21:07 Discharge Date: Jan 25, 2017 Admitting Diagnosis (1) Pulmonary embolism ICD Code: I26.99 - Other pulmonary embolism without acute cor pulmonale (2) Pulmonary infarct ICD Code: I26.99 - Other pulmonary embolism without acute cor pulmonale Procedures none Brief History - From Admission hx from patient, ER notes from [place] and review of records pt was dc from our hospital end of november she was treated at that time for endocarditis/ sepsis/ pneumonia completed iv antibiotics for bactremia - at infusion center- on came to hospital today because of dyspnea, chest pain worse on exertion. no cough no fever no nausea/ no vomiting/ no diarrhea no urinrary symptoms no dziz, no syncope in ER, pt's imaging studies reveal pulmonary infarct and embolism she was started on lovenox therapeutic dose reports of ivda hx, but quit 3yrs ago had used cocaine prior to last hospitalization early this month but none since then had vegetations by KALIN early this month- Imaging Last Impressions CT Angiography 01/20/17 0000 Signed Impressions: Service Date/Time: Friday, January 20, 2017 18:55 - CONCLUSION: 1. Pulmonary emboli again noted in the right lower lobe. 2. No significant change in the areas of consolidation and cavitary lesions. Kunal Rachel MD Lower Extremity Ultrasound 01/17/17 0000 Signed Impressions: Service Date/Time: December 09:14 - CONCLUSION: Normal examination. Sebastien Moore MD PE at Discharge awake and alert, no acute distress, good sats at room air anicteric lungs clear, no rales regular rhythm, + 3/6 systolic murmur left sternal border abdomen soft, nontender lower extremities- no edema, no calf swelling. good peripheral pulses Pt update on day of discharge doing well good sats no pain very motivated with lifestyle changes Hospital Course 26 years old female Pulmonary embolism - right lower lobe likely from TR with vegetation- repeat echo 01/17- no vegetation right lower lobe pulmonary infarct Lovenox DC- started on Eliquis 01/21 Dr. Ramirez- ff along with us- Pulmonary service seen by Cardiology- needs Valvular surgery eventually CVsurgery ff- needs valvular replacement eventually- will d/w them timing- patient has been drug free for months but admitted to one time use last dec 07- seems honest Recent bacteremia MSSA, endocarditis and vegetation of tricuspid valve Patient developed rash from Vancomycin (01/17/17)- which was Dc'd antibiotics - . Zithromax till 01/28. Po augmentin till 01/28. d/w Dr. Mosley Repeated blood cultures drawn 01/22- negative Transthoracic echo (01/17/17) . Severe tricuspid regurgitation estimated pulmonary arterial pressure 35.8 mmHg mild thickening of the tricuspid valve leaflet. No vegetation noted this time ID service - Dr. Mosley ID- no KALIN at this time continue to follow CT surgery consulted- d/w Dr. Vick- repeat Echo shows no vegetation- eventual valvular surgery -OP ff up in 4 weeks History of IVDU in the past -patient very motivated and has been clean since 2015 except for a one time use this time- now regretting it -denies chronic alcohol use -not asking for any pain meds-DC prn IV Morphine - Ativan to 0.25 mg po q 8 prn DVT prophylaxis patient on eliquis. Up and ambulating Will ask CM to be involve- needs OP ff up, meds assistance- Eliquis and insurance - HCRA patient needs eventual filler leaf cutter long ff up with a PCP and subspecialist 01/23- her grandma is coming today to help with needs- paperwork etc if needed Everything delivered to room DC home today OP ff up with Dr. ramirez in 2 weeks OP ff up with Dr. Vick in 4 weeks patient will set up with a PCP on her own for ff up Pt Condition on Discharge: Stable Discharge Disposition: Discharge Home Discharge Time: > 30 minutes Discharge Instructions DIET: Follow Instructions for: As Tolerated, No Restrictions Speech Therapy-Diet Recommends: Regular Activities you can perform: Weight Bearing as Kym Activities to Avoid: Lifting/Bending, Prolonged Standing, Strenuous Activity Follow up Referrals: Pulmonology - 2 Weeks with Estefani Ramirez MD Vascular Surgery - 4 Weeks with CARMINE New Medications: Amoxicillin-Clavulanate (Augmentin) 500-125 mg Tab 500 MG PO Q8HR for Infection for 5 Days, TAB Apixaban (Eliquis) 5 Mg Tab 5 MG PO BID for PE for 90 Days, #180 TAB Take 2 tablets (10 mg) bid till 01/30 then 5 mg po bid Azithromycin (Azithromycin) 250 Mg Tab 500 MG PO DAILY for Infection for 1 Day, #5 TAB Manuela Jacques MD Jan 25, 2017 12:41
[2017-01-25] MEDS ORDERED: LORA-392 PO (14:21)
[2017-01-29] MEDS ORDERED: APIXABAN 5 MG TABLET PO SCH (21:00)
[2017-01-31] MEDS ORDERED: CLON.5 PO (11:14)
[2017-02-18] MEDS ORDERED: CLON.5 PO ×2 (11:04→11:05)
== END 2017-01-25 14:49 | disposition home or self-care (01) | DRG 176 ==
LOC: NEDDLT 20:57 → N04B 21:07
PROVIDERS: ADMIT Internal Medicine; ATTEND Internal Medicine
DX: I26.99 Other pulmonary embolism without acute cor pulmonale (principal); I07.1 Rheumatic tricuspid insufficiency; F14.10 Cocaine abuse, uncomplicated; Z87.891 Personal history of nicotine dependence; Z87.01 Personal history of pneumonia (recurrent)
CPT/HCPCS: 71010; 71275; 80053; 80307; 81001; 82550; 82948; 83036; 83605; 83690; 83735; 84100; 84439; 84443; 84484; 84702; 85025; 85610; 85730; 87040; 87070; 87205; 87804; 90686; 93306; 93970; 96361; 96365; 96367; 96372; J0295; J0690; J1200; J1650; J2543; J3370; J7030; J7040; J7050; Q2038; Q9967

== ENCOUNTER 2017-07-10 16:09 | Inpatient (IN) | payer BC ==
[~2017-07-10] VITALS: Ht 172.7 cm; Wt 91.0 kg
[~2017-07-10 16:09] MED LIST changes: -ACETAMINOPHEN 325 MG TAB PO PRN; +APIX5TAB PO; -BISACODYL 10 MG SUPP RECTAL PRN; +CLON1TAB PO; -CYCL1TAB29 PO; -FLUMAZENIL 0.5 MG/5 ML VIAL IV PUSH PRN; -HALOPERIDOL LACTATE 5 MG/ML AMP IM PRN; -LACTULOSE SYRUP 20 GM/30 ML CUP PO PRN; -LIDO5DIS5 T-DERMAL; -LORazepam 1 MG TAB PO PRN; -LORazepam 2 MG TAB PO PRN; -LORazepam 2 MG/ML VIAL IV PUSH PRN; -MAGNESIUM HYDROXIDE SUSP 30 ML CUP PO PRN; -MORPHINE SULFATE 4 MG/ML INJ IV PUSH PRN; -NALOXONE HCL 0.4 MG/ML AMP IV PUSH PRN; -NORE1TAB60 PO; -ONDANSETRON HCL 4 MG/2 ML VIAL IVP PRN; -PROCHLORPERAZINE 25 MG SUPP RECTAL PRN; -SENNOSIDES 8.6 MG TAB PO PRN; -SODIUM CHLORIDE 0.9% FLUSH 10 ML FLUSH IV FLUSH PRN; -SUBO8MIS SL; -VANCOMYCIN INJ 1,000 MG in SODIUM CHLOR 0.9% 250 ML INJ 250 ML IV ONE; -Vancomycin Consult Pharmacy 1 EA OTHER SCH; -cloNIDine HCL 0.1 MG TAB PO PRN; -oxyCODONE/ACETAMINOPHEN 10 MG/325 MG TAB PO PRN; -oxyCODONE/ACETAMINOPHEN 5 MG/325 MG TAB PO PRN
[2017-07-10 16:51] VITALS: BP 119/57; PULSE 114; RESP 20; TEMP 97.3; O2SAT 96
[2017-07-10] MEDS ORDERED: SODIUM CHLOR 0.9% 1000 ML INJ 1,000 ML IV ONE ×2 (18:16)
[2017-07-10] MEDS ORDERED: ACETAMINOPHEN 1000 MG/100 ML 65 ML IV ONE (18:30)
[2017-07-10 19:10] LABS: AUTOMATED NEUTROPHIL # 17.3 TH/MM3 (1.8-7.7); BASOPHIL % 0.2 % (0.0-2.0); EOSINOPHIL % 5.2 % (0.0-4.0); HEMOGLOBIN 10.5 GM/DL (11.6-15.3); LYMPH % 1.7 % (9.0-44.0); LYMPHOCYTE # 0.3 TH/MM3 (1.0-4.8); MEAN CELL VOLUME 81.8 FL (80.0-100.0); MEAN CORPUSCULAR HEMOGLOBIN 28.5 PG (27.0-34.0); MEAN CORPUSCULAR HGB CONC 34.9 % (32.0-36.0); MEAN PLATELET VOLUME 7.1 FL (7.0-11.0); MONO % 2.3 % (0.0-8.0); MONOCYTE # 0.4 TH/MM3 (0-0.9); NEUT % 90.6 % (16.0-70.0); PLATELET COUNT 153 TH/MM3 (150-450); RED BLOOD COUNT 3.67 MIL/MM3 (4.00-5.30); RED CELL DISTRIBUTION WIDTH 16.1 % (11.6-17.2)
--- NOTE | 2017-07-10 19:10 | PD ---
HPI Chief Complaint: Medical Clearance Time Seen by Provider: 18:04 Travel History International Travel<30 days: No Contact w/Intl Traveler<30days: No Traveled to known affect area: No History of Present Illness HPI Patient is a 26-year-old female presenting to the emergency department for evaluation of body aches, shortness of breath. Patient was sent by her doctor who was concerned for recurrent endocarditis. Patient has a history of IV drug use, she has a history of tricuspid endocarditis. She has been using IV heroin again. Patient states she has felt like she has had fevers and chills. She denies any nausea, vomiting, headache, abdominal pain chest pain. Symptom onset was gradual, symptom severity is moderate, symptoms are exacerbated due to patient's IV drug use. PFSH Past Medical History Asthma: Yes Anxiety: Yes (hx of ) Cardiovascular Problems: Yes (TRICUSPID VALVE ENDOCARDITIS) Chest Pain: Yes Endocrine: No Genitourinary: No Immune Disorder: No Implanted Vascular Access Dvce: Yes (this has been removed) Musculoskeletal: No Neurologic: No Psychiatric: Yes Reproductive: No Respiratory: Yes Radiation Therapy: No Tetanus Vaccination: Unknown Influenza Vaccination: Yes ?: Unknown LMP: 06/27/2017 Past Surgical History Surgical History: No Previous Surgery Other Surgery: No Social History Alcohol Use: No Tobacco Use: Yes Substance Use: Yes (heroine) Allergies-Medications (Allergen,Severity, Reaction): Coded Allergies: vancomycin (Verified Allergy, Intermediate, Rash, 07/10/17) Reported Meds & Prescriptions Reported Meds & Active Scripts Active Clonazepam 1 Mg Tab 1 Mg PO BID Eliquis (Apixaban) 5 Mg Tab 5 Mg PO BID 90 Days Take 2 tablets (10 mg) bid till 01/30 then 5 mg po bid Review of Systems Except as stated in HPI: all other systems reviewed are Neg General / Constitutional: Positive: Fever, Chills Respiratory: Positive: Cough, Shortness of Breath Gastrointestinal: No: Nausea, Abdominal Pain Musculoskeletal: Positive: Myalgias Skin: Positive Change in Pigmentation Psychiatric: Positive: Substance Abuse Physical Exam Narrative GENERAL: Well-developed, well-nourished, alert female. Presenting in no acute distress. SKIN: Warm and dry. First and second fingertips on the left hand have purple discoloration and decreased capillary refill. HEAD: Atraumatic. Normocephalic. EYES: Pupils equal and round. No scleral icterus. No injection or drainage. ENT: No nasal bleeding or discharge. Mucous membranes pink and moist. NECK: Trachea midline. No JVD. CARDIOVASCULAR: Tachycardic RESPIRATORY: No accessory muscle use. Diminished in bases bilaterally. GASTROINTESTINAL: Abdomen soft, non-tender, nondistended. Hepatic and splenic margins not palpable. MUSCULOSKELETAL: Extremities without clubbing, cyanosis, or edema. No obvious deformities. NEUROLOGICAL: Awake and alert. No obvious cranial nerve deficits. Motor grossly within normal limits. Five out of 5 muscle strength in the arms and legs. Normal speech. PSYCHIATRIC: Appropriate mood and affect; insight and judgment normal. Data Data Last Documented VS Vital Signs Date Time Temp Pulse Resp B/P (MAP) Pulse Ox O2 Delivery O2 Flow Rate FiO2 07/10/17 19:32 108 16 119/64 (82) 97 Room Air 07/10/17 16:51 97.3 Orders Orders Sepsis Workup Initiated (07/10/17 ) Electrocardiogram (07/10/17 18:16) Complete Blood Count With Diff (07/10/17 18:16) Comprehensive Metabolic Panel (07/10/17 18:16) Prothrombin Time / Inr (Pt) (07/10/17 18:16) Lactic Acid Sepsis Protocol (07/10/17 18:16) Magnesium (Mg) (07/10/17 18:16) Urinalysis - C+S If Indicated (07/10/17 18:16) Blood Culture (07/10/17 18:16) Chest, Single Ap (07/10/17 18:16) Blood Glucose (07/10/17 18:16) Ecg Monitoring (07/10/17 18:16) Iv Access Insert/Monitor (07/10/17 18:16) Oximetry (07/10/17 18:16) Oxygen Administration (07/10/17 18:16) Sodium Chlor 0.9% 1000 Ml Inj (Ns 1000 M (07/10/17 18:16) Sodium Chlor 0.9% 1000 Ml Inj (Ns 1000 M (07/10/17 18:16) Acetaminophen 1000 Mg/100 Ml (Ofirmev 10 (07/10/17 18:30) Ct Pulmonary Angiogram (07/10/17 ) Urine Culture (07/10/17 19:00) Iohexol 350 Inj (Omnipaque 350 Inj) (07/10/17 19:37) Piperacil-Tazo 4.5 Gm Premix (Zosyn 4.5 (07/10/17 20:00) Linezolid 600 Mg Premix (Zyvox 600 Mg Pr (07/10/17 20:30) Admit Order (Ed Use Only) (07/10/17 20:17) Hydrocodone-Homatropine Liq (Hycodan Liq (07/10/17 20:30) Labs Laboratory Tests Test 07/10/17 19:00 White Blood Count 19.0 TH/MM3 Red Blood Count 3.67 MIL/MM3 Hemoglobin 10.5 GM/DL Hematocrit 30.0 % Mean Corpuscular Volume 81.8 FL Mean Corpuscular Hemoglobin 28.5 PG Mean Corpuscular Hemoglobin Concent 34.9 % Red Cell Distribution Width 16.1 % Platelet Count 153 TH/MM3 Mean Platelet Volume 7.1 FL Neutrophils (%) (Auto) 90.6 % Lymphocytes (%) (Auto) 1.7 % Monocytes (%) (Auto) 2.3 % Eosinophils (%) (Auto) 5.2 % Basophils (%) (Auto) 0.2 % Neutrophils # (Auto) 17.3 TH/MM3 Lymphocytes # (Auto) 0.3 TH/MM3 Monocytes # (Auto) 0.4 TH/MM3 Eosinophils # (Auto) 1.0 TH/MM3 Basophils # (Auto) 0.0 TH/MM3 Prothrombin Time 15.1 SEC Prothromb Time International Ratio 1.5 RATIO Urine Color YELLOW Urine Turbidity HAZY Urine pH 5.5 Urine Specific Register 1.012 Urine Protein 30 mg/dL Urine Glucose (UA) NEG mg/dL Urine Ketones NEG mg/dL Urine Occult Blood SMALL Urine Nitrite NEG Urine Bilirubin SMALL Urine Urobilinogen 2.0 MG/DL Urine Leukocyte Esterase TRACE Urine RBC 3 /hpf Urine WBC 24 /hpf Urine Squamous Epithelial Cells 5 /hpf Urine Bacteria MOD /hpf Urine White Blood Cell Casts 6 /lpf Urine Mucus FEW /lpf Microscopic Urinalysis Comment CULTURE INDICATED Blood Urea Nitrogen 106 MG/DL Creatinine 4.56 MG/DL Random Glucose 81 MG/DL Total Protein 7.1 GM/DL Albumin 1.8 GM/DL Calcium Level 7.0 MG/DL Magnesium Level 1.9 MG/DL Alkaline Phosphatase 326 U/L Aspartate Amino Transf (AST/SGOT) 75 U/L Alanine Aminotransferase (ALT/SGPT) 47 U/L Total Bilirubin 3.3 MG/DL Sodium Level 117 MEQ/L Potassium Level 3.2 MEQ/L Chloride Level 78 MEQ/L Carbon Dioxide Level 19.2 MEQ/L Anion Gap 20 MEQ/L Estimat Glomerular Filtration Rate 12 ML/MIN Lactic Acid Level 1.9 mmol/L Protein Corrected Calcium 7.0 MG/DL MDM Medical Decision Making Medical Screen Exam Complete: Yes Emergency Medical Condition: Yes Medical Record Reviewed: Yes Interpretation(s) Laboratory Tests Test 07/10/17 19:00 White Blood Count 19.0 TH/MM3 Red Blood Count 3.67 MIL/MM3 Hemoglobin 10.5 GM/DL Hematocrit 30.0 % Mean Corpuscular Volume 81.8 FL Mean Corpuscular Hemoglobin 28.5 PG Mean Corpuscular Hemoglobin Concent 34.9 % Red Cell Distribution Width 16.1 % Platelet Count 153 TH/MM3 Mean Platelet Volume 7.1 FL Neutrophils (%) (Auto) 90.6 % Lymphocytes (%) (Auto) 1.7 % Monocytes (%) (Auto) 2.3 % Eosinophils (%) (Auto) 5.2 % Basophils (%) (Auto) 0.2 % Neutrophils # (Auto) 17.3 TH/MM3 Lymphocytes # (Auto) 0.3 TH/MM3 Monocytes # (Auto) 0.4 TH/MM3 Eosinophils # (Auto) 1.0 TH/MM3 Basophils # (Auto) 0.0 TH/MM3 Prothrombin Time 15.1 SEC Prothromb Time International Ratio 1.5 RATIO Urine Color YELLOW Urine Turbidity HAZY Urine pH 5.5 Urine Specific Register 1.012 Urine Protein 30 mg/dL Urine Glucose (UA) NEG mg/dL Urine Ketones NEG mg/dL Urine Occult Blood SMALL Urine Nitrite NEG Urine Bilirubin SMALL Urine Urobilinogen 2.0 MG/DL Urine Leukocyte Esterase TRACE Urine RBC 3 /hpf Urine WBC 24 /hpf Urine Squamous Epithelial Cells 5 /hpf Urine Bacteria MOD /hpf Urine White Blood Cell Casts 6 /lpf Urine Mucus FEW /lpf Microscopic Urinalysis Comment CULTURE INDICATED Blood Urea Nitrogen 106 MG/DL Creatinine 4.56 MG/DL Random Glucose 81 MG/DL Total Protein 7.1 GM/DL Albumin 1.8 GM/DL Calcium Level 7.0 MG/DL Magnesium Level 1.9 MG/DL Alkaline Phosphatase 326 U/L Aspartate Amino Transf (AST/SGOT) 75 U/L Alanine Aminotransferase (ALT/SGPT) 47 U/L Total Bilirubin 3.3 MG/DL Sodium Level 117 MEQ/L Potassium Level 3.2 MEQ/L Chloride Level 78 MEQ/L Carbon Dioxide Level 19.2 MEQ/L Anion Gap 20 MEQ/L Estimat Glomerular Filtration Rate 12 ML/MIN Lactic Acid Level 1.9 mmol/L Protein Corrected Calcium 7.0 MG/DL Vital Signs Date Time Temp Pulse Resp B/P (MAP) Pulse Ox O2 Delivery O2 Flow Rate FiO2 07/10/17 16:51 97.3 114 20 119/57 (77) 96 Differential Diagnosis Viral syndrome versus endocarditis versus septic emboli versus metabolic abnormality versus other Narrative Course Patient is a 26-year-old female that presented to the emergency room for evaluation of possible endocarditis. Patient is tachycardic on arrival, she is otherwise hemodynamically stable. Sepsis protocol initiated. CBC with white blood cell count 19,000 with left shift. Chemistry with a sodium of 117, BUN/creatinine 106/4.56, protein corrected calcium is 7, potassium is 3.2 Lactic acid 1.9 Urinalysis with reflex culture pending. Chest x-ray shows patchy cavitary pneumonia, fairly stable on the right but substantially worse on the left CT pulmonary angiogram shows no pulmonary embolus. Widespread patchy cavitary pneumonia both lungs and probably on the basis of septic emboli. Nonspecific hepatosplenomegaly. Probable tricuspid regurgitation. Patient was started on amp antibiotics empirically, she reports a history of an allergy to vancomycin, Zosyn and Zyvox ordered. Patient received a total of 2 L of IV fluids, discussed findings with the residents who accepted admission on behalf of Dr. Faria. Also discussed findings with my attending physician. Patient and family were made aware of findings, patient requested something for cough. Medication ordered. Sepsis Criteria SIRS Criteria (2 or more): Heart rate over 90, WBC > 11586, < 4000 or > 10% bands Sepsis Criteria (SIRS+source): Infect source susp/known Severe Sepsis (+one): Acute Oliguria/Renal Failure Criteria Outcome: Meets severe sepsis criteria Diagnosis Primary Impression: Severe sepsis Additional Impressions: Cavitary pneumonia Hyponatremia Acute renal failure Qualified Codes: N17.9 - Acute kidney failure, unspecified Hypocalcemia UTI (urinary tract infection) Qualified Codes: N39.0 - Urinary tract infection, site not specified; R31.9 - Hematuria, unspecified IVDU (intravenous drug user) Admitting Information Admitting Physician Requests: Admit Kaylen Sumner Jul 10, 2017 19:10
--- NOTE | 2017-07-10 19:17 | RADRPT ---
EXAM DATE/TIME: 07/10/2017 18:53 [facility] COMPARISON: CT PULMONARY ANGIOGRAM, January 20, 2017, 18:55. INDICATIONS : Short of breath and MEDICAL HISTORY : Endocarditis. SURGICAL HISTORY : None. ENCOUNTER: Initial ACUITY: 2 days PAIN SCORE: 2/10 LOCATION: Bilateral chest FINDINGS: Patchy air space opacities and probably some with cavitation noted of both lungs. The right lung appe ar similar to before but the left lung is worse. No large effusion. No pneumothorax. Heart size stable compared to normal limits. CONCLUSION: Patchy cavitary pneumonia, fairly stable on the right but substantially worse on the left. An up to d ate CT is scheduled. Chuy Yang MD on July 10, 2017 at 19:14 Board Certified Radiologist. This report was verified electronically.
[2017-07-10 19:20] LABS: INTERNATIONAL NORMALIZED RATIO 1.5 RATIO; PROTHROMBIN TIME - PATIENT 15.1 SEC (9.8-11.6)
[2017-07-10 19:25] LABS: BACTERIA, URINE MOD /hpf; BILIRUBIN, URINE SMALL (NEG); BLOOD, URINE SMALL (NEG); GLUCOSE,URINE NEG (NEG); KETONE, URINE NEG (NEG); MUCUS URINE FEW /lpf (OCC); NITRITE,URINE NEG (NEG); PH, URINE 5.5 (5.0-8.5); SQUAMOUS EPITHELIAL CELL URINE 5 /hpf (0-5); URINE COLOR YELLOW (YELLW/STRAW); URINE LEUKOCYTE ESTERASE TRACE (NEG); WHITE BLOOD CELL CAST, URINE 6 /lpf
[2017-07-10 19:32] VITALS: BP 119/64; PULSE 108; RESP 16; O2SAT 97
[2017-07-10] MEDS ORDERED: IOHEXOL 350 MG/ML 10 ML VIAL (for RAD DIAG) IVCONTRAST ONE (19:37)
[2017-07-10 19:38] LABS: ALBUMIN 1.8 GM/DL (3.4-5.0); BICARBONATE 19.2 MEQ/L (21.0-32.0); CREATININE 4.56 MG/DL (0.50-1.00); MAGNESIUM 1.9 MG/DL (1.5-2.5)
[2017-07-10 19:44] LABS: TOTAL BILIRUBIN ADULT 3.3 MG/DL (0.2-1.0); TOTAL PROTEIN 7.1 GM/DL (6.4-8.2)
--- NOTE | 2017-07-10 19:51 | RADRPT ---
EXAM DATE/TIME: 07/10/2017 19:34 [facility] COMPARISON: CT PULMONARY ANGIOGRAM, January 20, 2017, 18:55. INDICATIONS : Shortness of breath, chest pains. IV CONTRAST: 75 cc Omnipaque 350 (iohexol) IV RADIATION DOSE: 8.43 CTDIvol (mGy) MEDICAL HISTORY : Endocarditis. IV drug abuse. Septic emboli. SURGICAL HISTORY : None. ENCOUNTER: Initial ACUITY: 3 days PAIN SCALE: 8/10 LOCATION: chest TECHNIQUE: Volumetric scanning of the chest was performed using a pulmonary embolism protocol MIP images were re constructed. Using automated exposure control and adjustment of the mA and/or kV according to patien t size, radiation dose was kept as low as reasonably achievable to obtain optimal diagnostic quality images. DICOM format image data is available electronically for review and comparison. Follow-up recommendations for detected pulmonary nodules are based at a minimum on nodule size and pa tient risk factors according to Fleischner Society Guidelines. FINDINGS: PULMONARY ARTERIES: No filling defects are seen in the pulmonary arteries through the segmental level. LUNGS: Too numerous to count variable size and widespread areas of cavitary consolidation are seen of both l ungs. Largest lesion on the left is in the mid lingula and measures approximately 5 cm. Largest lesio n on the right is in the lower lobe and measures approximately 3.8 cm. These findings are markedly wo rse compared to the prior CT. PLEURAE: There is no pleural thickening or pleural effusion. MEDIASTINUM: There is good visualization of the great vessels of the middle mediastinum. No evidence of mediastin al or hilar adenopathy/mass. Injected contrast refluxes into the IVC and hepatic veins concerning for tricuspid regurgitation. Liver appears enlarged. MUSCULOSKELETAL: Within normal limits for patient age. MISCELLANEOUS: Liver appears enlarged and also probable splenomegaly CONCLUSION: 1. No pulmonary embolus. 2. Widespread patchy cavitary pneumonia of both lungs and probably on the basis of septic emboli. 3. Nonspecific hepatosplenomegaly. 4. Probable tricuspid regurgitation. Chuy Yang MD on July 10, 2017 at 19:45 Board Certified Radiologist. This report was verified electronically.
[2017-07-10] MEDS ORDERED: PIPERACIL-TAZO 4.5 GM PREMIX 100 ML IV ONE (20:00)
--- NOTE | 2017-07-10 20:24 | HHI.HP ---
[facility] Service Family Medicine Primary Care Physician Julia Park MD Admission Diagnosis CAVITARY PNA, SEPSIS, ARF, HYPONATREMIA Diagnoses: International Travel<30 Days: No Contact w/Intl Traveler<30days: No Known Affected Area: No Past Family Social History Allergies: Coded Allergies: vancomycin (Verified Allergy, Intermediate, Rash, 07/10/17) Physical Exam Vital Signs Vital Signs Date Time Temp Pulse Resp B/P (MAP) Pulse Ox O2 Delivery O2 Flow Rate FiO2 07/10/17 19:32 108 16 119/64 (82) 97 Room Air 07/10/17 16:51 97.3 114 20 119/57 (77) 96 Physical Exam GENERAL: This is a well-nourished, well-developed patient, in no apparent distress. SKIN: No rashes, ecchymoses or lesions. Cool and dry. HEAD: Atraumatic. Normocephalic. No temporal or scalp tenderness. EYES: Pupils equal round and reactive. Extraocular motions intact. No scleral icterus. No injection or drainage. ENT: Nose without bleeding, purulent drainage or septal hematoma. Throat without erythema, tonsillar hypertrophy or exudate. Uvula midline. Airway patent. NECK: Trachea midline. No JVD or lymphadenopathy. Supple, nontender, no meningeal signs. CARDIOVASCULAR: Regular rate and rhythm without murmurs, gallops, or rubs. RESPIRATORY: Clear to auscultation. Breath sounds equal bilaterally. No wheezes , rales, or rhonchi. GASTROINTESTINAL: Abdomen soft, non-tender, nondistended. No hepato-splenomegaly , or palpable masses. No guarding. MUSCULOSKELETAL: Extremities without clubbing, cyanosis, or edema. No joint tenderness, effusion, or edema noted. No calf tenderness. Negative Homans sign bilaterally. NEUROLOGICAL: Awake and alert. Cranial nerves II through XII intact. Motor and sensory grossly within normal limits. Five out of 5 muscle strength in all muscle groups. Normal speech. Laboratory Laboratory Tests Test 07/10/17 19:00 White Blood Count 19.0 Red Blood Count 3.67 Hemoglobin 10.5 Hematocrit 30.0 Mean Corpuscular Volume 81.8 Mean Corpuscular Hemoglobin 28.5 Mean Corpuscular Hemoglobin Concent 34.9 Red Cell Distribution Width 16.1 Platelet Count 153 Mean Platelet Volume 7.1 Neutrophils (%) (Auto) 90.6 Lymphocytes (%) (Auto) 1.7 Monocytes (%) (Auto) 2.3 Eosinophils (%) (Auto) 5.2 Basophils (%) (Auto) 0.2 Neutrophils # (Auto) 17.3 Lymphocytes # (Auto) 0.3 Monocytes # (Auto) 0.4 Eosinophils # (Auto) 1.0 Basophils # (Auto) 0.0 Prothrombin Time 15.1 Prothromb Time International Ratio 1.5 Urine Color YELLOW Urine Turbidity HAZY Urine pH 5.5 Urine Specific [place] 1.012 Urine Protein 30 Urine Glucose (UA) NEG Urine Ketones NEG Urine Occult Blood SMALL Urine Nitrite NEG Urine Bilirubin SMALL Urine Urobilinogen 2.0 Urine Leukocyte Esterase TRACE Urine RBC 3 Urine WBC 24 Urine Squamous Epithelial Cells 5 Urine Bacteria MOD Urine White Blood Cell Casts 6 Urine Mucus FEW Microscopic Urinalysis Comment CULTURE INDICATED Blood Urea Nitrogen 106 Creatinine 4.56 Random Glucose 81 Total Protein 7.1 Albumin 1.8 Calcium Level 7.0 Magnesium Level 1.9 Alkaline Phosphatase 326 Aspartate Amino Transf (AST/SGOT) 75 Alanine Aminotransferase (ALT/SGPT) 47 Total Bilirubin 3.3 Sodium Level 117 Potassium Level 3.2 Chloride Level 78 Carbon Dioxide Level 19.2 Anion Gap 20 Estimat Glomerular Filtration Rate 12 Lactic Acid Level 1.9 Protein Corrected Calcium 7.0 Date/Time Source Procedure Growth Status 07/10/17 19:00 Blood Peripheral Aerobic Blood Culture Pending Received 07/10/17 19:00 Blood Peripheral Anaerobic Blood Culture Pending Received 07/10/17 19:00 Urine Catheterized Urine Urine Culture Pending Received Result Diagram: 07/10/17189907/10/171899 Caprini VTE Risk Assessment Caprini Risk Assessment Model Point Value = 1 Point Value = 2 Point Value = 3 Point Value = 5 Age 41-60 Minor surgery BMI > 25 kg/m2 Swollen legs Varicose veins or History of unexplained or recurrent spontaneous Oral contraceptives or hormone replacement Sepsis (< 1 month) Serious lung disease, including pneumonia (< 1 month) Abnormal pulmonary function Acute myocardial infarction Congestive heart failure (< 1 month) History of inflammatory bowel disease Medical patient at bed rest Age 61-74 Arthroscopic surgery Major open surgery (> 45 min) Laparoscopic surgery (> 45 min) Malignancy Confined to bed (> 72 hours) Immobilizing plaster cast Central venous access Age >= 75 History of VTE Family history of VTE Factor V Leiden Prothrombin [id number] Lupus anticoagulant Anticardiolipin antibodies Elevated serum homocysteine Heparin-induced thrombocytopenia Other congenital or acquired thrombophilia Stroke (< 1 month) Elective arthroplasty Hip, pelvis, or leg fracture Acute spinal cord injury (< 1 month) Prophylaxis Regimen Total Risk Factor Score Risk Level Prophylaxis Regimen 0-1 Low Early ambulation 2 Moderate Order ONE of the following: *Sequential Compression Device (SCD) *Heparin 5000 units SQ BID 3-4 Higher Order ONE of the following medications: *Heparin 5000 units SQ TID *Enoxaparin/Lovenox 40 mg SQ daily (WT < 150 kg, CrCl > 30 mL/min) *Enoxaparin/Lovenox 30 mg SQ daily (WT < 150 kg, CrCl > 10-29 mL/min) *Enoxaparin/Lovenox 30 mg SQ BID (WT < 150 kg, CrCl > 30 mL/min) AND/OR *Sequential Compression Device (SCD) 5 or more Highest Order ONE of the following medications: *Heparin 5000 units SQ TID (Preferred with Epidurals) *Enoxaparin/Lovenox 40 mg SQ daily (WT < 150 kg, CrCl > 30 mL/min) *Enoxaparin/Lovenox 30 mg SQ daily (WT < 150 kg, CrCl > 10-29 mL/min) *Enoxaparin/Lovenox 30 mg SQ BID (WT < 150 kg, CrCl > 30 mL/min) AND *Sequential Compression Device (SCD) Physician Certification Order for Inpatient Services The services are ordered in accordance with Medicare regulations or non- Medicare payer requirements, as applicable. In the case of services not specified as inpatient-only, they are appropriately provided as inpatient services in accordance with the 2-midnight benchmark. days is the estimated time the patient will need to remain in the hospital, assuming treatment plan goals are met and no additional complications. Yuni Bundy MD, R1 Jul 10, 2017 20:24
[2017-07-10] MEDS ORDERED: HYDROcodone 5 MG/HOMATROPINE 1.5 MG SYRUP 5 ML CUP PO ONE (20:30)
[2017-07-10] MEDS ORDERED: LINEZOLID 600 MG PREMIX 300 ML IV ONE (20:30)
[2017-07-10 20:43] LABS: BANDS 25 % (0-6); LYMPHOCYTES 2 % (9-44); MONOCYTES 1 % (0-8); MYELOCYTES 2 % (0-0); NEUTROPHIL # MANUAL DIFF 18.2 TH/MM3 (1.8-7.7); PLASMA CELLS 1 % (0-0); POLYS (SEG NEUTROPHILS) 68 % (16-70); PROMYELOCYTES 1 % (0-0)
[2017-07-10 20:44] LABS: DOHLE BODIES PRESENT (NONE SEEN); OVALOCYTES 1+ (NORMAL); TOXIC GRANULATION 1+ (NORMAL); TOXIC VACUOLATION PRESENT (NONE SEEN)
[2017-07-10] MEDS ORDERED: MAGNESIUM HYDROXIDE SUSP 30 ML CUP PO PRN (21:00)
[2017-07-10] MEDS ORDERED: SENNOSIDES 8.6 MG TAB PO PRN (21:00)
[2017-07-10] MEDS ORDERED: LACTULOSE SYRUP 20 GM/30 ML CUP PO PRN (21:00)
[2017-07-10] MEDS: SODIUM CHLORIDE 0.9% FLUSH 10 ML FLUSH IV FLUSH SCH (21:00)
[2017-07-10] MEDS ORDERED: NALOXONE HCL 0.4 MG/ML AMP IV PUSH PRN (21:00)
[2017-07-10] MEDS ORDERED: BISACODYL 10 MG SUPP RECTAL PRN (21:00)
--- NOTE | 2017-07-10 21:38 | HHI.HP ---
[facility] Service [facility] Medicine Primary Care Physician Julia Park MD Admission Diagnosis CAVITARY PNA, SEPSIS, ARF, HYPONATREMIA Diagnoses: International Travel<30 Days: No Contact w/Intl Traveler<30days: No Known Affected Area: No History of Present Illness Patient is a 26-year-old female with history of endocarditis and IV drug use. Presented here today from the [facility] clinic due to worsening generalized body aches, fatigue, cough, painful fingers and toes. Symptoms started about 1 week ago and have progressively worsened. Patient reports that she was previously clean from IV drug use for 3 years but had relapse about 1 week ago. Used IV heroin but reports using a clean needle. She is unsure if she used the same needle on herself but states it was not used by others. Has previously been tested for HIV in the past but has not been diagnosed with that. Reports only one prior episode of endocarditis 12/2016 but upon chart review it appears she may have had a prior episode of endocarditis 11/2016. Review of Systems Constitutional: COMPLAINS OF: Fatigue, Chills, Change in appetite Endocrine: DENIES: Polydipsia Ears, nose, mouth, throat: DENIES: Oral lesions, Throat pain, Odynophagia Respiratory: COMPLAINS OF: Cough, DENIES: Shortness of breath Cardiovascular: DENIES: Chest pain, Palpitations, Orthopnea Gastrointestinal: COMPLAINS OF: Nausea, Vomiting, DENIES: Abdominal pain, Difficulty Swallowing Genitourinary: DENIES: Dysuria Musculoskeletal: COMPLAINS OF: Muscle aches, Joint Swelling, DENIES: Neck pain Integumentary: COMPLAINS OF: Rash Hematologic/lymphatic: COMPLAINS OF: Bruising Neurologic: DENIES: Seizures Past Family Social History Past Medical History IV drug use Endocarditis with septic pulmonary emboli * History of tricuspid vegetation with severe tricuspid regurgitation * Echo 12/2016 shows elevated pulmonary arterial pressure at 35.8 Prior history of PE that required Eliquis. Patient discontinued about 1 week prior to this admission. Past Surgical History Denies Reported Medications None Allergies: Coded Allergies: vancomycin (Verified Allergy, Intermediate, Rash, 07/10/17) Family History Mother and father healthy. No family history of drug abuse Social History Currently lives with grandparents. Parents are in [facility]. Illicit drugs: Patient reports using Alcohol: Denies Nicotine: Vapes Physical Exam Vital Signs Vital Signs Date Time Temp Pulse Resp B/P (MAP) Pulse Ox O2 Delivery O2 Flow Rate FiO2 07/10/17 19:32 108 16 119/64 (82) 97 Room Air 07/10/17 16:51 97.3 114 20 119/57 (77) 96 Physical Exam GENERAL: This is a well-nourished, well-developed patient. SKIN: Multiple track alvarez noted on upper and lower extremity. On the medial aspect of the left lower leg there is a 2x3 cm lesion with surrounding erythema and scab at the center of lesion. No active drainage present however there appears to be a smaller open wound in the center of the lesion with puslike material not actively draining but present. Superficial erythematous lesion on the lateral aspect of the left lower leg. Multiple splinter hemorrhages on bilateral fingers and toes and surrounding ecchymosis. HEAD: No temporal or scalp tenderness. Full range of motion of the neck. EYES: Pupils equal round and reactive. Extraocular motions intact. No scleral icterus. No injection or drainage. ENT: Nose without bleeding, purulent drainage. Throat without erythema, tonsillar hypertrophy or exudate. Uvula midline. Airway patent. NECK: No JVD or lymphadenopathy. Supple, nontender, no meningeal signs. CARDIOVASCULAR: Increased rate with normal rhythm. Possible S3 present. grade 2 /6 systolic murmur heard best in the left lower sternal border. RESPIRATORY: Coarse breath sounds diffusely bilaterally. No accessory muscle use. GASTROINTESTINAL: Abdomen nondistended. MUSCULOSKELETAL: 1+ nonpitting edema of bilateral lower extremity. No calf tenderness bilaterally. NEUROLOGICAL: Awake and alert. Motor and sensory grossly within normal limits. Normal speech. Laboratory Laboratory Tests Test 07/10/17 19:00 White Blood Count 19.0 Red Blood Count 3.67 Hemoglobin 10.5 Hematocrit 30.0 Mean Corpuscular Volume 81.8 Mean Corpuscular Hemoglobin 28.5 Mean Corpuscular Hemoglobin Concent 34.9 Red Cell Distribution Width 16.1 Platelet Count 153 Mean Platelet Volume 7.1 Neutrophils (%) (Auto) 90.6 Lymphocytes (%) (Auto) 1.7 Monocytes (%) (Auto) 2.3 Eosinophils (%) (Auto) 5.2 Basophils (%) (Auto) 0.2 Neutrophils # (Auto) 17.3 Lymphocytes # (Auto) 0.3 Monocytes # (Auto) 0.4 Eosinophils # (Auto) 1.0 Basophils # (Auto) 0.0 CBC Comment AUTO DIFF Differential Total Cells Counted 100 Neutrophils % (Manual) 68 Band Neutrophils % 25 Lymphocytes % 2 Monocytes % 1 Neutrophils # (Manual) 18.2 Myelocytes 2 Promyelocytes 1 Differential Comment FINAL DIFF MANUAL Plasma Cells 1 Toxic Granulation 1+ Toxic Vacuolation PRESENT Dohle Bodies PRESENT Platelet Estimate NORMAL Platelet Morphology Comment CLUMPED Ovalocytes 1+ Prothrombin Time 15.1 Prothromb Time International Ratio 1.5 Urine Color YELLOW Urine Turbidity HAZY Urine pH 5.5 Urine Specific [place] 1.012 Urine Protein 30 Urine Glucose (UA) NEG Urine Ketones NEG Urine Occult Blood SMALL Urine Nitrite NEG Urine Bilirubin SMALL Urine Urobilinogen 2.0 Urine Leukocyte Esterase TRACE Urine RBC 3 Urine WBC 24 Urine Squamous Epithelial Cells 5 Urine Bacteria MOD Urine White Blood Cell Casts 6 Urine Mucus FEW Microscopic Urinalysis Comment CULTURE INDICATED Blood Urea Nitrogen 106 Creatinine 4.56 Random Glucose 81 Total Protein 7.1 Albumin 1.8 Calcium Level 7.0 Magnesium Level 1.9 Alkaline Phosphatase 326 Aspartate Amino Transf (AST/SGOT) 75 Alanine Aminotransferase (ALT/SGPT) 47 Total Bilirubin 3.3 Sodium Level 117 Potassium Level 3.2 Chloride Level 78 Carbon Dioxide Level 19.2 Anion Gap 20 Estimat Glomerular Filtration Rate 12 Lactic Acid Level 1.9 Protein Corrected Calcium 7.0 Date/Time Source Procedure Growth Status 07/10/17 19:00 Blood Peripheral Aerobic Blood Culture Pending Received 07/10/17 19:00 Blood Peripheral Anaerobic Blood Culture Pending Received 07/10/17 19:00 Urine Catheterized Urine Urine Culture Pending Worksheet Result Diagram: 07/10/17 1900 07/10/17 1900 Imaging Last Impressions Chest X-Ray 07/10/17 1816 Signed Impressions: Service Date/Time: Monday, July 10, 2017 18:53 - CONCLUSION: Patchy cavitary pneumonia, fairly stable on the right but substantially worse on the left. An up to date CT is scheduled. Chuy Yang MD CT Angiography 07/10/17 0000 Signed Impressions: Service Date/Time: Monday, July 10, 2017 19:34 - CONCLUSION: 1. No pulmonary embolus. 2. Widespread patchy cavitary pneumonia of both lungs and probably on the basis of septic emboli. 3. Nonspecific hepatosplenomegaly. 4. Probable tricuspid regurgitation. Chuy MD Matthew Robersoni VTE Risk Assessment Caprini VTE Risk Assessment: No/Low Risk (score <= 1) Caprini Risk Assessment Model Point Value = 1 Point Value = 2 Point Value = 3 Point Value = 5 Age 41-60 Minor surgery BMI > 25 kg/m2 Swollen legs Varicose veins or History of unexplained or recurrent spontaneous Oral contraceptives or hormone replacement Sepsis (< 1 month) Serious lung disease, including pneumonia (< 1 month) Abnormal pulmonary function Acute myocardial infarction Congestive heart failure (< 1 month) History of inflammatory bowel disease Medical patient at bed rest Age 61-74 Arthroscopic surgery Major open surgery (> 45 min) Laparoscopic surgery (> 45 min) Malignancy Confined to bed (> 72 hours) Immobilizing plaster cast Central venous access Age >= 75 History of VTE Family history of VTE Factor V Leiden Prothrombin [id number] Lupus anticoagulant Anticardiolipin antibodies Elevated serum homocysteine Heparin-induced thrombocytopenia Other congenital or acquired thrombophilia Stroke (< 1 month) Elective arthroplasty Hip, pelvis, or leg fracture Acute spinal cord injury (< 1 month) Prophylaxis Regimen Total Risk Factor Score Risk Level Prophylaxis Regimen 0-1 Low Early ambulation 2 Moderate Order ONE of the following: *Sequential Compression Device (SCD) *Heparin 5000 units SQ BID 3-4 Higher Order ONE of the following medications: *Heparin 5000 units SQ TID *Enoxaparin/Lovenox 40 mg SQ daily (WT < 150 kg, CrCl > 30 mL/min) *Enoxaparin/Lovenox 30 mg SQ daily (WT < 150 kg, CrCl > 10-29 mL/min) *Enoxaparin/Lovenox 30 mg SQ BID (WT < 150 kg, CrCl > 30 mL/min) AND/OR *Sequential Compression Device (SCD) 5 or more Highest Order ONE of the following medications: *Heparin 5000 units SQ TID (Preferred with Epidurals) *Enoxaparin/Lovenox 40 mg SQ daily (WT < 150 kg, CrCl > 30 mL/min) *Enoxaparin/Lovenox 30 mg SQ daily (WT < 150 kg, CrCl > 10-29 mL/min) *Enoxaparin/Lovenox 30 mg SQ BID (WT < 150 kg, CrCl > 30 mL/min) AND *Sequential Compression Device (SCD) Assessment and Plan Assessment and Plan Patient is a 26yo female with PMH significant for endocarditis and IV drug use. Admitted for endocarditis Code Status Full Code. Patient reports that if she is unable to make health decisions, her grandparents have permission to make health decisions. Discussed Condition With sdw Dr. Bundy Problem List: (1) Endocarditis ICD Codes: I38 - Endocarditis, valve unspecified Status: Acute Plan: Patient with 2 prior episodes of endocarditis 11/2016 and 12/2016. Presented with generalized muscle aches and decreased appetite over 1 week. Symptoms started after relapse with IV heroin. Patient with significant murmur on physical exam but does have a prior history of tricuspid regurgitation. Physical exam significant for splinter hemorrhages of bilateral fingers and toes. CTA significant for widespread patchy cavitary pneumonia bilaterally but no acute PE. -Leukocytosis with left shift -Sputum culture ordered -urine culture pending -HIV antibody ordered -Wound culture ordered of left lower extremity -Echo ordered: * May require cardiology referral for a KALIN and evaluation of tricuspid regurg if valve has worsened Infectious Disease consulted: appreciate recommendations Medications: * Linezolid (due to vanc allergy and very poor renal function) 07/10- * Zosyn (renally dosed) 2.25mg q8hr Imaging: * CTA: No PE. Widespread patchy cavitary pneumonia both lungs and probable on the basis of septic emboli. Nonspecific hepatosplenomegaly. Probable tricuspid regurgitation. * CXR: Patchy cavitary pneumonia, fairly stable on the right but substantially worse on the left * Lower extremity ultrasound: Negative for venous thrombosis (2) Acute renal failure ICD Codes: N17.9 - Acute kidney failure, unspecified Status: Acute Plan: Creatinine on admission was 4.56 with baseline being <1. No acute EKG changes on admission. -Closely monitor electrolyte disturbances -Closely monitor fluid resuscitation due to poor renal function -Repeat BMP at 0000 and 0600 -Cardiac telemetry until electrolyte disturbances resolve (3) Sepsis ICD Codes: A41.9 - Sepsis, unspecified organism Status: Acute Plan: Meet sepsis criteria on admission based on tachycardia and leukocytosis. See more detailed plan below endocarditis (4) Cavitary pneumonia ICD Codes: J18.9 - Pneumonia, unspecified organism; J98.4 - Other disorders of lung Status: Acute Plan: Found on CTA. See more detailed plan under endocarditis (5) IVDU (intravenous drug user) ICD Codes: F19.90 - Other psychoactive substance use, unspecified, uncomplicated Status: Acute Plan: History of IV drug use. Most recent relapse 1 week prior to admission. Patient reports she had been clean for the last 3 years. (6) Hyponatremia ICD Codes: E87.1 - Hypo-osmolality and hyponatremia; J98.4 - Other disorders of lung Status: Acute Plan: Significant hyponatremia on admission with significantly elevated ratio of BUN/creatinine. Likely related to dehydration from sepsis/endocarditis. Lactic acid unremarkable. -Closely monitor sodium to have no more than 7meq in 24 hours -will need to have serial BMPs (7) Hypocalcemia ICD Codes: E83.51 - Hypocalcemia Status: Acute Plan: Hypocalcemia on admission. Will monitor and replete accordingly. (8) Nutrition, metabolism, and development symptoms ICD Codes: R63.8 - Other symptoms and signs concerning food and fluid intake Plan: Diet: Regular Electrolytes: see above Fluids: NS @80, closely monitor for fluid overload DVT PPX: SCDs due to high bleed risk, will re-consider starting chemical anticoagulation tomorrow GI PPX: none indicated Physician Certification 2 Midnight Certification Type: Admission for Inpatient Services Order for Inpatient Services The services are ordered in accordance with Medicare regulations or non- Medicare payer requirements, as applicable. In the case of services not specified as inpatient-only, they are appropriately provided as inpatient services in accordance with the 2-midnight benchmark. Estimated LOS (days): 3 days is the estimated time the patient will need to remain in the hospital, assuming treatment plan goals are met and no additional complications. Post-Hospital Plan: Home Health Problem Qualifiers (1) Acute renal failure: Qualified Codes: N17.9 - Acute kidney failure, unspecified Deja Galvan MD, R3 Jul 10, 2017 21:38
[2017-07-10 22:00] VITALS: BP 108/68; PULSE 102; RESP 16; O2SAT 96
[2017-07-10] MEDS: SODIUM CHLOR 0.9% 1000 ML INJ 1,000 ML IV SCH (22:18)
--- NOTE | 2017-07-10 22:50 | RADRPT ---
EXAM DATE/TIME: 07/10/2017 22:14 [facility] COMPARISON: US LEG BILATERAL VENOUS DOPPLER, January 17, 2017, 9:14. INDICATIONS : Bilateral leg swelling. MEDICAL HISTORY : Endocarditis. Asthma. Anxiety. Substance abuse. SURGICAL HISTORY : None. ENCOUNTER: Subsequent ACUITY: 1 day PAIN SCORE: 0/10 LOCATION: Bilateral legs. TECHNIQUE: Venous ultrasound of the left and right leg was performed from the inguinal ligament to the proximal calf. Real-time, color Doppler and spectral tracing, compression and augmentation techniques were us ed. FINDINGS: RIGHT LEG: There is normal compressibility of the deep venous system from the inguinal region to the proximal ca lf. No echogenic clot is seen in the lumen of the common femoral, femoral, popliteal, and posterior tibial veins. There is a normal response of the venous system to proximal and distal augmentation an d respiration. LEFT LEG: There is normal compressibility of the deep venous system from the inguinal region to the proximal ca lf. No echogenic clot is seen in the lumen of the common femoral, femoral, popliteal, and posterior tibial veins. There is a normal response of the venous system to proximal and distal augmentation an d respiration. CONCLUSION: Negative study. No venous thrombosis of either lower extremity. Chuy Yang MD on July 10, 2017 at 22:48 Board Certified Radiologist. This report was verified electronically.
[2017-07-11] VITALS (11 sets, daily range): BP systolic 103–127; BP diastolic 55–65; PULSE 97–110; RESP 16–22; TEMP 96.1–98.3; O2SAT 92–99
[2017-07-11] MEDS: ACETAMINOPHEN 325 MG TAB PO PRN ×3 (00:53→21:58)
[2017-07-11] MEDS: ONDANSETRON HCL 4 MG/2 ML VIAL IVP PRN (00:54)
[2017-07-11] MEDS ORDERED: CALCIUM GLUCONATE 500 MG TAB PO ONE (01:30)
[2017-07-11 02:23] LABS: BICARBONATE 18.9 MEQ/L (21.0-32.0); CALCIUM 6.1 MG/DL (8.5-10.1); CREATININE 3.94 MG/DL (0.50-1.00)
[2017-07-11] MEDS ORDERED: CALCIUM CARBONATE 1.25 GM (CA 500 MG) TAB PO ONE (02:45)
[2017-07-11 03:38] LABS: CALCIUM-PROTEIN CORRECTED 6.6 MG/DL (8.5-10.1)
[2017-07-11 04:09] LABS: BASOPHIL % 0.1 % (0.0-2.0); EOSINOPHIL # 0.7 TH/MM3 (0-0.4); EOSINOPHIL % 4.5 % (0.0-4.0); HEMATOCRIT 26.9 % (35.0-46.0); HEMOGLOBIN 9.4 GM/DL (11.6-15.3); LYMPHOCYTE # 0.5 TH/MM3 (1.0-4.8); MEAN CELL VOLUME 82.9 FL (80.0-100.0); MEAN CORPUSCULAR HEMOGLOBIN 29.1 PG (27.0-34.0); MEAN CORPUSCULAR HGB CONC 35.1 % (32.0-36.0); MEAN PLATELET VOLUME 7.2 FL (7.0-11.0); MONOCYTE # 0.6 TH/MM3 (0-0.9); NEUT % 88.4 % (16.0-70.0); PLATELET COUNT 99 TH/MM3 (150-450); RED BLOOD COUNT 3.24 MIL/MM3 (4.00-5.30); RED CELL DISTRIBUTION WIDTH 16.4 % (11.6-17.2); WHITE BLOOD COUNT 15.9 TH/MM3 (4.0-11.0)
[2017-07-11] MEDS: PIPERACIL-TAZO 2.25 GM PREMIX 50 ML IV SCH ×3 (04:20→22:56)
[2017-07-11 05:18] LABS: ALBUMIN 1.6 GM/DL (3.4-5.0); BICARBONATE 20.6 MEQ/L (21.0-32.0); CALCIUM 6.4 MG/DL (8.5-10.1); CREATININE 3.97 MG/DL (0.50-1.00); TOTAL BILIRUBIN ADULT 3.2 MG/DL (0.2-1.0); TOTAL PROTEIN 6.2 GM/DL (6.4-8.2)
[2017-07-11 06:15] LABS: CALCIUM-PROTEIN CORRECTED 6.8 MG/DL (8.5-10.1)
[2017-07-11 08:04] LABS: BANDS 30 % (0-6); LYMPHOCYTES 3 % (9-44); MONOCYTES 3 % (0-8); NEUTROPHIL # MANUAL DIFF 14.9 TH/MM3 (1.8-7.7); OVALOCYTES 1+ (NORMAL); POLYS (SEG NEUTROPHILS) 64 % (16-70)
[2017-07-11 08:05] LABS: DOHLE BODIES PRESENT (NONE SEEN); TOXIC GRANULATION 1+ (NORMAL)
[2017-07-11 08:35] LABS: RHEUMATOID FACTOR SCREEN NEGATIVE (NEGATIVE)
[2017-07-11] MEDS: MUPIROCIN 2% OINT 22 GM TUBE TOPICAL SCH ×3 (09:00→22:56)
[2017-07-11] MEDS: SODIUM CHLORIDE 0.9% FLUSH 10 ML FLUSH IV FLUSH SCH ×2 (09:00→20:09)
[2017-07-11] MEDS ORDERED: SODIUM CHLOR 0.9% 1000 ML INJ 1,000 ML IV ONE (09:00)
[2017-07-11] MEDS: LINEZOLID 600 MG PREMIX 300 ML IV SCH ×2 (09:00→20:09)
[2017-07-11] MEDS ORDERED: DIMETHICONE/OXYBENZONE/PADMIATE LIP BALM 4.25 GM TOPICAL PRN (09:00)
--- NOTE | 2017-07-11 09:43 | RADRPT ---
EXAM DATE/TIME: 07/11/2017 09:00 [facility] COMPARISON: No previous studies available for comparison. INDICATIONS : Increased labs. MEDICAL HISTORY : Tricuspid valve endocarditis. Substance use. SURGICAL HISTORY : None. ENCOUNTER: Initial ACUITY: 1 day PAIN SCORE: 8/10 LOCATION: Bilateral flank MEASUREMENTS: RIGHT KIDNEY: 12.5 x 6.6 x 4.5 cm LEFT KIDNEY: 12.7 x 5.8 x 5.0 cm FINDINGS: Increased renal echogenicity characteristic of medical renal disease. No hydronephrosis or perinephri c fluid. Bladder unremarkable. CONCLUSION: 1. No acute findings. Mildly increased renal echogenicity characteristic of medical renal disease. Sebastien Moore MD on July 11, 2017 at 9:37 Board Certified Radiologist. This report was verified electronically.
--- NOTE | 2017-07-11 10:06 | HHI.HP ---
[facility] Medicine Primary Care Physician Julia Park MD Admission Diagnosis CAVITARY PNA, SEPSIS, ARF, HYPONATREMIA Diagnoses: (1) Endocarditis Diagnosis: Principal (2) Acute renal failure Diagnosis: Principal (3) Sepsis Diagnosis: Principal (4) Cavitary pneumonia Diagnosis: Principal (5) IVDU (intravenous drug user) Diagnosis: Principal (6) Hyponatremia Diagnosis: Principal (7) Hypocalcemia Diagnosis: Principal (8) Nutrition, metabolism, and development symptoms Diagnosis: Principal International Travel<30 Days: No Contact w/Intl Traveler<30days: No Known Affected Area: No History of Present Illness Ms Zee is a 26-year-old female with history of endocarditis and IV drug use. Presented from the [facility] clinic due to worsening generalized body aches, fatigue, cough, painful fingers and toes. Symptoms started about 1 week ago and have progressively worsened. Patient reports that she was previously clean from IV drug use for 3 years but had relapse about 1 week ago. Used IV heroin but reports using a clean needle. She is unsure if she used the same needle on herself but states it was not used by others. Has previously been tested for HIV in the past but has not been diagnosed with that. Reports only one prior episode of endocarditis 12/2016 but upon chart review it appears she may have had a prior episode of endocarditis 11/2016. She was admitted and blood cultures were drawn with 4/4 positive now for gram positive cocci in chains and pairs. She is very ill with multi organ systems effected. She is breathing with an increased rate but not using accessory muscles at this time. She speaks but takes a breath after about 2 words. Her tests of liver and kidneys are elevated. ID and Nephrology are consulted. Review of Systems Other Constitutional: COMPLAINS OF: Fatigue, Chills, Change in appetite Endocrine: DENIES: Polydipsia Ears, nose, mouth, throat: DENIES: Oral lesions, Throat pain, Odynophagia Respiratory: COMPLAINS OF: Cough, DENIES: Shortness of breath Cardiovascular: DENIES: Chest pain, Palpitations, Orthopnea Gastrointestinal: COMPLAINS OF: Nausea, Vomiting, DENIES: Abdominal pain, Difficulty Swallowing Genitourinary: DENIES: Dysuria Musculoskeletal: COMPLAINS OF: Muscle aches, Joint Swelling, DENIES: Neck pain Integumentary: COMPLAINS OF: Rash Hematologic/lymphatic: COMPLAINS OF: Bruising Neurologic: DENIES: Seizures Past Family Social History Past Medical History IV drug use Endocarditis with septic pulmonary emboli * History of tricuspid vegetation with severe tricuspid regurgitation * Echo 12/2016 shows elevated pulmonary arterial pressure at 35.8 Prior history of PE that required Eliquis. Patient discontinued about 1 week prior to this admission. Past Surgical History Denies Allergies: Coded Allergies: vancomycin (Verified Allergy, Intermediate, Rash, 07/10/17) Family History Mother and father healthy. No family history of drug abuse Social History Currently lives with grandparents. Parents are in [facility]. Illicit drugs: Patient reports using Alcohol: Denies Nicotine: Vapes Physical Exam Vital Signs Vital Signs Date Time Temp Pulse Resp B/P (MAP) Pulse Ox O2 Delivery O2 Flow Rate FiO2 07/11/17 08:00 97.5 97 22 115/65 (82) 96 07/11/17 04:00 98.0 100 20 127/62 (83) 95 07/11/17 03:00 104 07/11/17 02:03 96.1 107 20 112/55 (74) 92 07/11/17 00:00 100 16 105/61 (76) 96 Nasal Cannula 2.00 07/10/17 22:00 102 16 108/68 (81) 96 Nasal Cannula 2.00 07/10/17 19:32 108 16 119/64 (82) 97 Room Air 07/10/17 16:51 97.3 114 20 119/57 (77) 96 Physical Exam GENERAL: This is an acutely ill appearing pt with some increased respiratory rate. SKIN: Multiple track alvarez noted on upper and lower extremity. On the medial aspect of the left lower leg there is a 2x3 cm lesion with surrounding erythema and scab at the center of lesion. No active drainage present however there appears to be a smaller open wound in the center of the lesion with pus that was drained and sent for culture as there was a small perhaps 2 cm abscess. Superficial erythematous lesion on the lateral aspect of the left lower leg. Multiple splinter hemorrhages on bilateral fingers and toes and surrounding ecchymosis. HEAD: No temporal or scalp tenderness. Full range of motion of the neck. EYES: Pupils equal round and reactive. Extraocular motions intact. No scleral icterus. No injection or drainage. ENT: Nose without bleeding, purulent drainage. Throat without erythema, tonsillar hypertrophy or exudate. Uvula midline. Airway patent. NECK: No JVD or lymphadenopathy. Supple, nontender, no meningeal signs. CARDIOVASCULAR: Increased rate with normal rhythm. Possible S3 present. grade 2 /6 systolic murmur heard best in the left lower sternal border. RESPIRATORY: Coarse breath sounds diffusely bilaterally. No accessory muscle use. increased rate GASTROINTESTINAL: Abdomen nondistended. MUSCULOSKELETAL: 1+ nonpitting edema of bilateral lower extremity. No calf tenderness bilaterally. NEUROLOGICAL: Awake and alert. Motor and sensory grossly within normal limits. Normal speech. Laboratory Laboratory Tests Test 07/10/17 19:00 07/11/17 01:50 07/11/17 03:44 White Blood Count 19.0 15.9 Red Blood Count 3.67 3.24 Hemoglobin 10.5 9.4 Hematocrit 30.0 26.9 Mean Corpuscular Volume 81.8 82.9 Mean Corpuscular Hemoglobin 28.5 29.1 Mean Corpuscular Hemoglobin Concent 34.9 35.1 Red Cell Distribution Width 16.1 16.4 Platelet Count 153 99 Mean Platelet Volume 7.1 7.2 Neutrophils (%) (Auto) 90.6 88.4 Lymphocytes (%) (Auto) 1.7 3.0 Monocytes (%) (Auto) 2.3 4.0 Eosinophils (%) (Auto) 5.2 4.5 Basophils (%) (Auto) 0.2 0.1 Neutrophils # (Auto) 17.3 14.0 Lymphocytes # (Auto) 0.3 0.5 Monocytes # (Auto) 0.4 0.6 Eosinophils # (Auto) 1.0 0.7 Basophils # (Auto) 0.0 0.0 CBC Comment AUTO DIFF AUTO DIFF Differential Total Cells Counted 100 100 Neutrophils % (Manual) 68 64 Band Neutrophils % 25 30 Lymphocytes % 2 3 Monocytes % 1 3 Neutrophils # (Manual) 18.2 14.9 Myelocytes 2 Promyelocytes 1 Differential Comment FINAL DIFF MANUAL FINAL DIFF MANUAL Plasma Cells 1 Toxic Granulation 1+ 1+ Toxic Vacuolation PRESENT Dohle Bodies PRESENT PRESENT Platelet Estimate NORMAL LOW Platelet Morphology Comment CLUMPED NORMAL Ovalocytes 1+ 1+ Prothrombin Time 15.1 Prothromb Time International Ratio 1.5 Urine Color YELLOW Urine Turbidity HAZY Urine pH 5.5 Urine Specific Tynan 1.012 Urine Protein 30 Urine Glucose (UA) NEG Urine Ketones NEG Urine Occult Blood SMALL Urine Nitrite NEG Urine Bilirubin SMALL Urine Urobilinogen 2.0 Urine Leukocyte Esterase TRACE Urine RBC 3 Urine WBC 24 Urine Squamous Epithelial Cells 5 Urine Bacteria MOD Urine White Blood Cell Casts 6 Urine Mucus FEW Microscopic Urinalysis Comment CULTURE INDICATED Blood Urea Nitrogen 106 92 93 Creatinine 4.56 3.94 3.97 Random Glucose 81 104 98 Total Protein 7.1 6.0 6.2 Albumin 1.8 1.6 Calcium Level 7.0 6.1 6.4 Magnesium Level 1.9 Alkaline Phosphatase 326 268 Aspartate Amino Transf (AST/SGOT) 75 70 Alanine Aminotransferase (ALT/SGPT) 47 43 Total Bilirubin 3.3 3.2 Sodium Level 117 120 122 Potassium Level 3.2 3.2 3.8 Chloride Level 78 83 83 Carbon Dioxide Level 19.2 18.9 20.6 Anion Gap 20 18 18 Estimat Glomerular Filtration Rate 12 14 14 Lactic Acid Level 1.9 1.6 Protein Corrected Calcium 7.0 6.6 6.8 Urine Opiates Screen POS Urine Barbiturates Screen NEG Urine Amphetamines Screen NEG Urine Benzodiazepines Screen NEG Urine Cocaine Screen NEG Urine Cannabinoids Screen NEG Rheumatoid Factor Screen NEGATIVE Rheumatoid Factor Titer HIV (1&2) Ab and P24 Ag, 4th Gener NONREACTIVE Date/Time Source Procedure Growth Status 07/10/17 19:00 Blood Peripheral Aerobic Blood Culture - Preliminary Gram Positive Cocci Resulted 07/10/17 19:00 Anaerobic Blood Culture - Preliminary Gram Positive Cocci Resulted 07/10/17 19:00 Urine Catheterized Urine Urine Culture Pending Worksheet 07/11/17 08:50 Wound Leg Gram Stain Pending Received 07/11/17 08:50 Wound Leg Wound Culture Pending Received Result Diagram: 07/11/17 0344 07/11/17 0344 Imaging Last Impressions Chest X-Ray 07/10/17 1816 Signed Impressions: Service Date/Time: Monday, July 10, 2017 18:53 - CONCLUSION: Patchy cavitary pneumonia, fairly stable on the right but substantially worse on the left. An up to date CT is scheduled. Chuy Yang MD CT Angiography 07/10/17 0000 Signed Impressions: Service Date/Time: Monday, July 10, 2017 19:34 - CONCLUSION: 1. No pulmonary embolus. 2. Widespread patchy cavitary pneumonia of both lungs and probably on the basis of septic emboli. 3. Nonspecific hepatosplenomegaly. 4. Probable tricuspid regurgitation. MD Regla Gay VTE Risk Assessment Caprini VTE Risk Assessment: No/Low Risk (score <= 1) Caprini Risk Assessment Model Point Value = 1 Point Value = 2 Point Value = 3 Point Value = 5 Age 41-60 Minor surgery BMI > 25 kg/m2 Swollen legs Varicose veins or History of unexplained or recurrent spontaneous Oral contraceptives or hormone replacement Sepsis (< 1 month) Serious lung disease, including pneumonia (< 1 month) Abnormal pulmonary function Acute myocardial infarction Congestive heart failure (< 1 month) History of inflammatory bowel disease Medical patient at bed rest Age 61-74 Arthroscopic surgery Major open surgery (> 45 min) Laparoscopic surgery (> 45 min) Malignancy Confined to bed (> 72 hours) Immobilizing plaster cast Central venous access Age >= 75 History of VTE Family history of VTE Factor V Leiden Prothrombin [id number] Lupus anticoagulant Anticardiolipin antibodies Elevated serum homocysteine Heparin-induced thrombocytopenia Other congenital or acquired thrombophilia Stroke (< 1 month) Elective arthroplasty Hip, pelvis, or leg fracture Acute spinal cord injury (< 1 month) Prophylaxis Regimen Total Risk Factor Score Risk Level Prophylaxis Regimen 0-1 Low Early ambulation 2 Moderate Order ONE of the following: *Sequential Compression Device (SCD) *Heparin 5000 units SQ BID 3-4 Higher Order ONE of the following medications: *Heparin 5000 units SQ TID *Enoxaparin/Lovenox 40 mg SQ daily (WT < 150 kg, CrCl > 30 mL/min) *Enoxaparin/Lovenox 30 mg SQ daily (WT < 150 kg, CrCl > 10-29 mL/min) *Enoxaparin/Lovenox 30 mg SQ BID (WT < 150 kg, CrCl > 30 mL/min) AND/OR *Sequential Compression Device (SCD) 5 or more Highest Order ONE of the following medications: *Heparin 5000 units SQ TID (Preferred with Epidurals) *Enoxaparin/Lovenox 40 mg SQ daily (WT < 150 kg, CrCl > 30 mL/min) *Enoxaparin/Lovenox 30 mg SQ daily (WT < 150 kg, CrCl > 10-29 mL/min) *Enoxaparin/Lovenox 30 mg SQ BID (WT < 150 kg, CrCl > 30 mL/min) AND *Sequential Compression Device (SCD) Assessment and Plan Assessment and Plan Patient is a 26yo female with PMH significant for endocarditis and IV drug use. Admitted for endocarditis Problem List: (1) Endocarditis ICD Codes: I38 - Endocarditis, valve unspecified Status: Acute Plan: Patient with 2 prior episodes of endocarditis 11/2016 and 12/2016. Presented with generalized muscle aches and decreased appetite over 1 week. Symptoms started after relapse with IV heroin. Patient with significant murmur on physical exam but does have a prior history of tricuspid regurgitation. Physical exam significant for splinter hemorrhages of bilateral fingers and toes. CTA significant for widespread patchy cavitary pneumonia bilaterally but no acute PE. -Leukocytosis with left shift -Sputum culture ordered -urine culture pending -HIV antibody ordered -Wound culture ordered of left lower extremity, done today ID consulted -Echo ordered: * May require cardiology referral for a KALIN and evaluation of tricuspid regurg if valve has worsened. however, she has 4/4 positive cultures so the diagnosis is made Infectious Disease consulted: appreciate recommendations Medications: * Linezolid (due to vanc allergy and very poor renal function) 07/10- * Zosyn (renally dosed) 2.25mg q8hr Imaging: * CTA: No PE. Widespread patchy cavitary pneumonia both lungs and probable on the basis of septic emboli. Nonspecific hepatosplenomegaly. Probable tricuspid regurgitation. * CXR: Patchy cavitary pneumonia, fairly stable on the right but substantially worse on the left * Lower extremity ultrasound: Negative for venous thrombosis (2) Acute renal failure ICD Codes: N17.9 - Acute kidney failure, unspecified Status: Acute Plan: Creatinine on admission was 4.56 with baseline being <1. No acute EKG changes on admission. -Closely monitor electrolyte disturbances -Closely monitor fluid resuscitation due to poor renal function -Repeat BMP at 0000 and 0600 -Cardiac telemetry until electrolyte disturbances resolve consult Nephrology (3) Sepsis ICD Codes: A41.9 - Sepsis, unspecified organism Status: Acute Plan: Meet sepsis criteria on admission based on tachycardia and leukocytosis. See more detailed plan below endocarditis (4) Cavitary pneumonia ICD Codes: J18.9 - Pneumonia, unspecified organism; J98.4 - Other disorders of lung Status: Acute Plan: Found on CTA. See more detailed plan under endocarditis (5) IVDU (intravenous drug user) ICD Codes: F19.90 - Other psychoactive substance use, unspecified, uncomplicated Status: Acute Plan: History of IV drug use. Most recent relapse 1 week prior to admission. Patient reports she had been clean for the last 3 years. will offer help and rehab especially when she leaves the hospital (6) Hyponatremia ICD Codes: E87.1 - Hypo-osmolality and hyponatremia; J98.4 - Other disorders of lung Status: Acute Plan: Significant hyponatremia on admission with significantly elevated ratio of BUN/creatinine. Likely related to dehydration from sepsis/endocarditis. Lactic acid unremarkable. -Closely monitor sodium to have no more than 7meq in 24 hours -will need to have serial BMPs (7) Hypocalcemia ICD Codes: E83.51 - Hypocalcemia Status: Acute Plan: Hypocalcemia on admission. Will monitor and replete accordingly. (8) Nutrition, metabolism, and development symptoms ICD Codes: R63.8 - Other symptoms and signs concerning food and fluid intake Plan: Diet: Regular Electrolytes: see above Fluids: NS @80, closely monitor for fluid overload DVT PPX: SCDs due to high bleed risk, will re-consider starting chemical anticoagulation tomorrow GI PPX: none indicated Problem Qualifiers (1) Endocarditis: Qualified Codes: I33.0 - Acute and subacute infective endocarditis (2) Acute renal failure: Qualified Codes: N17.9 - Acute kidney failure, unspecified (3) Sepsis: Qualified Codes: A41.9 - Sepsis, unspecified organism Donna Faria MD Jul 11, 2017 10:06
[2017-07-11] MEDS: CALCIUM CARBONATE 1.25 GM (CA 500 MG) TAB PO SCH (10:15)
--- NOTE | 2017-07-11 11:05 | PD.CONS ---
HPI Service Nephrology Consult Requested By Dr. Harvey Reason for Consult Acute kidney injury Primary Care Physician Julia Park MD History of Present Illness Patient is a 26-year-old female with history of endocarditis and IV drug use and anxiety. Presented here today from the [facility] clinic due to worsening generalized body aches, fatigue, cough, painful fingers and toes. Symptoms started about 1 week ago and have progressively worsened. Patient reports that she was previously clean rom IV drug use for 3 years but had relapse about 1 week ago. Used IV heroin. Nephrology is consulted for acute kidney injury with creatinine of 3.97 and GFR of 14 ml/min. Per medical records creatinine is less than 1 in 01/13. Patient is also found to have very abnormal labs with a HGB 9.4, Plt 99, Na 122, CO2 20.6, Ca 6.8. Has bilateral lower extremity swelling in legs with track alvarez noted. 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 No acute findings. Mildly increased renal echogenicity characteristic of medical renal disease. Sebastien Moore MD Chest X-Ray 07/10/17 1816 Signed Impressions: Service Date/Time: Monday, July 10, 2017 18:53 - CONCLUSION: Patchy cavitary pneumonia, fairly stable on the right but substantially worse on the left. An up to date CT is scheduled. Chuy Yang MD Lower Extremity Ultrasound 07/10/17 0000 Signed Impressions: Service Date/Time: Monday, July 10, 2017 22:14 - CONCLUSION: Negative study. No venous thrombosis of either lower extremity. Chuy Yang MD CT Angiography 07/10/17 0000 Signed Impressions: Service Date/Time: Monday, July 10, 2017 19:34 - CONCLUSION: 1. No pulmonary embolus. 2. Widespread patchy cavitary pneumonia of both lungs and probably on the basis of septic emboli. 3. Nonspecific hepatosplenomegaly. 4. Probable tricuspid regurgitation. Chuy Yang MD Family History grandmother with diabetes Social History IV drug use Denies ETOH Use Vape Lives with grandparents (Tasia Arvizu) Physical Exam Vital Signs Vital Signs Date Time Temp Pulse Resp B/P (MAP) Pulse Ox O2 Delivery O2 Flow Rate FiO2 07/11/17 08:00 97.5 97 22 115/65 (82) 96 07/11/17 04:00 98.0 100 20 127/62 (83) 95 07/11/17 03:00 104 07/11/17 02:03 96.1 107 20 112/55 (74) 92 07/11/17 00:00 100 16 105/61 (76) 96 Nasal Cannula 2.00 07/10/17 22:00 102 16 108/68 (81) 96 Nasal Cannula 2.00 07/10/17 19:32 108 16 119/64 (82) 97 Room Air 07/10/17 16:51 97.3 114 20 119/57 (77) 96 Physical Exam GENERAL: Alert and oriented SKIN: Multiple track alvarez noted on upper and lower extremity. On the medial aspect of the left lower leg there is a 2x3 cm lesion with surrounding erythema and scab at the center of lesion. Superficial erythematous lesion on the lateral aspect of the left lower leg. Multiple splinter hemorrhages on bilateral fingers and toes and surrounding ecchymosis. HEAD: Normocephalic. EYES: No scleral icterus. No injection or drainage. NECK: Supple, trachea midline. No JVD or lymphadenopathy. CARDIOVASCULAR: Regular rate and rhythm. Murmur noted RESPIRATORY: Breath sounds equal bilaterally. No accessory muscle use. GASTROINTESTINAL: Abdomen soft, non-tender, nondistended. MUSCULOSKELETAL: No cyanosis, or edema. BACK: Nontender without obvious deformity. No CVA tenderness. Laboratory Laboratory Tests Test 07/10/17 19:00 07/11/17 01:50 07/11/17 03:44 White Blood Count 19.0 15.9 Red Blood Count 3.67 3.24 Hemoglobin 10.5 9.4 Hematocrit 30.0 26.9 Mean Corpuscular Volume 81.8 82.9 Mean Corpuscular Hemoglobin 28.5 29.1 Mean Corpuscular Hemoglobin Concent 34.9 35.1 Red Cell Distribution Width 16.1 16.4 Platelet Count 153 99 Mean Platelet Volume 7.1 7.2 Neutrophils (%) (Auto) 90.6 88.4 Lymphocytes (%) (Auto) 1.7 3.0 Monocytes (%) (Auto) 2.3 4.0 Eosinophils (%) (Auto) 5.2 4.5 Basophils (%) (Auto) 0.2 0.1 Neutrophils # (Auto) 17.3 14.0 Lymphocytes # (Auto) 0.3 0.5 Monocytes # (Auto) 0.4 0.6 Eosinophils # (Auto) 1.0 0.7 Basophils # (Auto) 0.0 0.0 CBC Comment AUTO DIFF AUTO DIFF Differential Total Cells Counted 100 100 Neutrophils % (Manual) 68 64 Band Neutrophils % 25 30 Lymphocytes % 2 3 Monocytes % 1 3 Neutrophils # (Manual) 18.2 14.9 Myelocytes 2 Promyelocytes 1 Differential Comment FINAL DIFF MANUAL FINAL DIFF MANUAL Plasma Cells 1 Toxic Granulation 1+ 1+ Toxic Vacuolation PRESENT Dohle Bodies PRESENT PRESENT Platelet Estimate NORMAL LOW Platelet Morphology Comment CLUMPED NORMAL Ovalocytes 1+ 1+ Prothrombin Time 15.1 Prothromb Time International Ratio 1.5 Urine Color YELLOW Urine Turbidity HAZY Urine pH 5.5 Urine Specific [place] 1.012 Urine Protein 30 Urine Glucose (UA) NEG Urine Ketones NEG Urine Occult Blood SMALL Urine Nitrite NEG Urine Bilirubin SMALL Urine Urobilinogen 2.0 Urine Leukocyte Esterase TRACE Urine RBC 3 Urine WBC 24 Urine Squamous Epithelial Cells 5 Urine Bacteria MOD Urine White Blood Cell Casts 6 Urine Mucus FEW Microscopic Urinalysis Comment CULTURE INDICATED Blood Urea Nitrogen 106 92 93 Creatinine 4.56 3.94 3.97 Random Glucose 81 104 98 Total Protein 7.1 6.0 6.2 Albumin 1.8 1.6 Calcium Level 7.0 6.1 6.4 Magnesium Level 1.9 Alkaline Phosphatase 326 268 Aspartate Amino Transf (AST/SGOT) 75 70 Alanine Aminotransferase (ALT/SGPT) 47 43 Total Bilirubin 3.3 3.2 Sodium Level 117 120 122 Potassium Level 3.2 3.2 3.8 Chloride Level 78 83 83 Carbon Dioxide Level 19.2 18.9 20.6 Anion Gap 20 18 18 Estimat Glomerular Filtration Rate 12 14 14 Lactic Acid Level 1.9 1.6 Protein Corrected Calcium 7.0 6.6 6.8 Urine Opiates Screen POS Urine Barbiturates Screen NEG Urine Amphetamines Screen NEG Urine Benzodiazepines Screen NEG Urine Cocaine Screen NEG Urine Cannabinoids Screen NEG Rheumatoid Factor Screen NEGATIVE Rheumatoid Factor Titer HIV (1&2) Ab and P24 Ag, 4th Gener NONREACTIVE Date/Time Source Procedure Growth Status 07/10/17 19:00 Blood Peripheral Aerobic Blood Culture - Preliminary Gram Positive Cocci Resulted 07/10/17 19:00 Anaerobic Blood Culture - Preliminary Gram Positive Cocci Resulted 07/10/17 19:00 Urine Catheterized Urine Urine Culture Pending Worksheet 07/11/17 08:50 Wound Leg Gram Stain Pending Received 07/11/17 08:50 Wound Leg Wound Culture Pending Received (Tasia Arvizu) Result Diagram: 07/11/17 0344 07/11/17 0344 Imaging Last Impressions Renal Ultrasound 07/11/17 0000 Signed Impressions: Service Date/Time: June 09:00 - CONCLUSION: 1. No acute findings. Mildly increased renal echogenicity characteristic of medical renal disease. Sebastien Moore MD Chest X-Ray 07/10/176 Signed Impressions: Service Date/Time: Monday, July 10, 2017 18:53 - CONCLUSION: Patchy cavitary pneumonia, fairly stable on the right but substantially worse on the left. An up to date CT is scheduled. Chuy Yang MD Lower Extremity Ultrasound 07/10/17 0000 Signed Impressions: Service Date/Time: Monday, July 10, 2017 22:14 - CONCLUSION: Negative study. No venous thrombosis of either lower extremity. Chuy Yang MD CT Angiography 07/10/17 0000 Signed Impressions: Service Date/Time: Monday, July 10, 2017 19:34 - CONCLUSION: 1. No pulmonary embolus. 2. Widespread patchy cavitary pneumonia of both lungs and probably on the basis of septic emboli. 3. Nonspecific hepatosplenomegaly. 4. Probable tricuspid regurgitation. Chuy Yang MD (Tasia Arvizu) Assessment and Plan Problem List: (1) ENRICO (acute kidney injury) ICD Codes: N17.9 - Acute kidney failure, unspecified Plan: Renal US. No acute findings. Mildly increased renal echogenicity characteristic of medical renal disease. ENRICO from possible ATN vs interstitial nephritis vs glomerular nephritis from bacteremia Creatinine of 3.97 today and GFR 14 ml/min. Baseline in 01/13 was creatinine of less than 1 Electrolyte abnormalities Plan Monitor strict I+O Non oliguric Potassium WNL Positive blood cultures renal dosing antibiotics Avoid nephrotoxins Serology ordered Will monitor UOP and BMP (2) Hypocalcemia ICD Codes: E83.51 - Hypocalcemia Status: Acute Plan: On oral replacement Will order one dose of calcium gluconate (3) Hyponatremia ICD Codes: E87.1 - Hypo-osmolality and hyponatremia Plan: Hyponatremia from most likely SIADH from infection. Sodium level at 122 up from 117 on admission Will monitor Goal less than 6-8 meq correction in 24 hours (4) Thrombocytopenia ICD Codes: D69.6 - Thrombocytopenia, unspecified Plan: Plt 99 continue to monitor (5) Anemia ICD Codes: D64.9 - Anemia, unspecified (6) Endocarditis ICD Codes: I38 - Endocarditis, valve unspecified Status: Acute (Tasia Arvizu) Problem List: (1) ENRICO (acute kidney injury) ICD Codes: N17.9 - Acute kidney failure, unspecified Plan: Renal US. No acute findings. Mildly increased renal echogenicity characteristic of medical renal disease. ENRICO from possible ATN vs interstitial nephritis vs glomerular nephritis from bacteremia Creatinine of 3.97 today and GFR 14 ml/min. Baseline in 01/13 was creatinine of less than 1 Electrolyte abnormalities Plan Monitor strict I+O Non oliguric Potassium WNL Positive blood cultures renal dosing antibiotics Avoid nephrotoxins Serology ordered Will monitor UOP and BMP. Patient seen and examine, agree with above. Patient has Acute kidney injury and Hyponatremia. Differential for ENRICO, will be either ATN, or Acute interstitial nephritis. Other possibility will be Post infectious GN. Work up ordered, continue antibiotics and IVF. Avoid Nephrotoxins. (2) Hypocalcemia ICD Codes: E83.51 - Hypocalcemia Status: Acute Plan: On oral replacement Will order one dose of calcium gluconate (3) Hyponatremia ICD Codes: E87.1 - Hypo-osmolality and hyponatremia Plan: Hyponatremia from most likely SIADH from infection. Sodium level at 122 up from 117 on admission Will monitor Goal less than 6-8 meq correction in 24 hours (4) Thrombocytopenia ICD Codes: D69.6 - Thrombocytopenia, unspecified Plan: Plt 99 continue to monitor (5) Anemia ICD Codes: D64.9 - Anemia, unspecified (6) Endocarditis ICD Codes: I38 - Endocarditis, valve unspecified Status: Acute (Janak Alonso MD) Tasia Arvizu Jul 11, 2017 11:04 Janak Alonso MD Jul 11, 2017 13:49
[2017-07-11] MEDS ORDERED: CALCIUM GLUCONATE INJ 1 GM in SODIUM CHLORIDE 0.9% INJ 100 ML IV ONE (12:00)
[2017-07-11] MEDS: clonazePAM 1 MG TAB PO SCH ×2 (12:05→20:08)
[2017-07-11] MEDS: MENTHOL LOZENGE BUCCAL PRN ×2 (12:20→20:08)
[2017-07-11] MEDS: RESP: ALBUTEROL 2.5 MG/IPRATROPIUM 0.5 MG NEB (SCH) INH ×3 (12:21→20:01)
[2017-07-11] MEDS: ONDANSETRON HCL 4 MG/2 ML VIAL IV PUSH PRN (12:22)
--- NOTE | 2017-07-11 12:28 | ECHRPT ---
Indication: Acute and subacute infective endocarditis CONCLUSIONS The left ventricular systolic function is normal with an estimated ejection fraction in the range of 55-60%. Wall thickness is normal. Normal left ventricular size. There is moderate to severe tricuspid valve regurgitation. The estimated pulmonary arterial pressure is 53.6 mmHg. Findings consistent with vegetation on the tricuspid valve. Trivial pulmonary valve regurgitation. BP: 127 / 62 HR: 100 Rhythm: Sinus MEASUREMENTS (Male / Female) Normal Values Technical Quality:Good 2D ECHO LV Diastolic Diameter PLAX 3.5 cm 4.2 - 5.9 / 3.9 - 5.3 cm LV Systolic Diameter PLAX 2.6 cm IVS Diastolic Thickness 1.2 cm 0.6 - 1.0 / 0.6 - 0.9 cm LVPW Diastolic Thickness 1.2 cm 0.6 - 1.0 / 0.6 - 0.9 cm LV Relative Wall Thickness 0.7 LVOT Diameter 2.1 cm M-MODE Aortic Root Diameter MM 2.6 cm LA Systolic Diameter MM 2.5 cm LA Ao Ratio MM 1.0 AV Cusp Separation MM 1.9 cm DOPPLER AV Peak Velocity 200.0 cm/s AV Peak Gradient 16.0 mmHg LVOT Peak Velocity 108.0 cm/s LVOT Peak Gradient 4.7 mmHg AV Area Cont Eq pk 1.9 cm Mitral E Point Velocity 84.9 cm/s Mitral A Point Velocity 59.2 cm/s Mitral E to A Ratio 1.4 LV E' Lateral Velocity 18.7 cm/s Mitral E to LV E' Lateral Ratio 4.5 LV E' Septal Velocity 13.9 cm/s Mitral E to LV E' Septal Ratio 6.1 TR Peak Velocity 330.0 cm/s TR Peak Gradient 43.6 mmHg Right Atrial Pressure 10.0 mmHg Pulmonary Artery Systolic Pressu 53.6 mmHg Right Ventricular Systolic Press 53.6 mmHg PV Peak Velocity 118.0 cm/s PV Peak Gradient 5.6 mmHg FINDINGS LEFT VENTRICLE The left ventricular systolic function is normal with an estimated ejection fraction in the range of 55-60%. Wall thickness is normal. Normal left ventricular size. RIGHT VENTRICLE Normal right ventricular size and systolic function. LEFT ATRIUM The left atrial size is normal. RIGHT ATRIUM The right atrial size is normal. ATRIAL SEPTUM Normal atrial septal thickness without atrial level shunting by limited color doppler interrogation. AORTA The aortic root and proximal ascending aorta are normal in size on limited imaging. MITRAL VALVE Structurally normal mitral valve. No mitral valve stenosis or regurgitation. AORTIC VALVE Trileaflet aortic valve. No aortic valve stenosis or regurgitation. TRICUSPID VALVE There is moderate to severe tricuspid valve regurgitation. The estimated pulmonary arterial pressure is 53.6 mmHg. Findings consistent with vegetation on the tricuspid valve. PULMONARY VALVE Trivial pulmonary valve regurgitation. VESSELS The inferior vena cava is normal in size. PERICARDIUM No pericardial effusion. Adrian Coker MD, FACC (Electronically Signed) Final Date:11 July 2017 12:27
[2017-07-11] MEDS: SODIUM CHLOR 0.9% 1000 ML INJ 1,000 ML IV SCH ×2 (12:30→17:56)
[2017-07-11] MEDS: BENZONATATE 100 MG CAP PO PRN ×2 (13:01→20:08)
--- NOTE | 2017-07-11 13:51 | EKG ---
Date Performed: 07/10/2017 Time Performed: 19:04:14 PTAGE: 26 years EKG: SINUS TACHYCARDIA POSSIBLE LEFT ATRIAL ENLARGEMENT BORDERLINE RIGHT AXIS DEVIATION ABNORMAL RHYTHM ECG NO PREVIOUS TRACING DOCTOR: Felicia Acosta Interpretating Date/Time 07/11/2017 13:49:40
[2017-07-11 15:54] LABS: BICARBONATE 19.7 MEQ/L (21.0-32.0); CALCIUM 6.8 MG/DL (8.5-10.1); CREATININE 3.11 MG/DL (0.50-1.00)
[2017-07-11 16:10] LABS: TOTAL PROTEIN 6.1 GM/DL (6.4-8.2)
[2017-07-11 16:42] LABS: CALCIUM-PROTEIN CORRECTED 7.3 MG/DL (8.5-10.1)
--- NOTE | 2017-07-11 20:47 | HHI.PR ---
Addendum to Inpatient Note Additional Information Pt seen around 1900 full note to follow Known to me 26 yo with h/o IVDU h/o MV endocarditis with pulmonary septic emboli Started to dfo IV drugs again presented with 1-2 weeks of fever, SOB,cough and painful fingers, toe lesions On exam: sick, toxic resp distress - mild- on NC O2 constant dry cough SKIN with needle alvarez and multiple embolic lesions involving fingers, toes soles BC 4/4 MSSA CTA septic emboli 2 D with vegetation obn TV A:R and L sided endocarditis clinically, MSSA P: KALIN Oxacillin Shana Mosley MD Jul 11, 2017 20:47
--- NOTE | 2017-07-11 20:51 | PD.ID.CON ---
History of Present Illness Service ID Consult Requested By DR Bundy Reason for Consult endocarditis Primary Care Physician Yi Jaime , R3 MD Candice Diagnoses: History of Present Illness Pt is known to me 26 yo with h/o IVDU h/o MV endocarditis with pulmonary septic emboli Started to dfo IV drugs again presented with 1-2 weeks of fever, SOB, constant dry cough and painful fingers, toe lesions, edema BC were positive 4/4 bottles for MSSA CTA showed septic emboli 2 D with vegetation on TV Review of Systems Constitutional: COMPLAINS OF: Fever, Chills Respiratory: COMPLAINS OF: Cough, Shortness of breath Cardiovascular: COMPLAINS OF: Dyspnea on Exertion, Lower Extremity Edema Integumentary: COMPLAINS OF: Rash Except as stated in HPI: all other systems reviewed are Neg Past Family Social History Allergies: Coded Allergies: vancomycin (Verified Allergy, Intermediate, Rash, 07/10/17) Past Medical History IVDU TV endocardrditis , MSSA Past Surgical History none Active Ordered Medications Medications where reviewed in EMR Antibiotics Include: zyvox Family History reviewed non contributory to current illness Social History No Tobacco. No ETOH. + heroine Physical Exam Vital Signs Vital Signs Date Time Temp Pulse Resp B/P (MAP) Pulse Ox O2 Delivery O2 Flow Rate FiO2 07/11/17 20:02 97 Nasal Cannula 2.00 07/11/17 16:00 97.3 101 22 103/56 (72) 96 07/11/17 12:23 99 Nasal Cannula 2.00 07/11/17 12:00 97.9 104 22 108/57 (74) 96 07/11/17 08:00 97.5 97 22 115/65 (82) 96 07/11/17 04:00 98.0 100 20 127/62 (83) 95 07/11/17 03:00 104 07/11/17 02:03 96.1 107 20 112/55 (74) 92 07/11/17 00:00 100 16 105/61 (76) 96 Nasal Cannula 2.00 07/10/17 22:00 102 16 108/68 (81) 96 Nasal Cannula 2.00 Physical Exam CONSTITUTIONAL/GENERAL: This is an adequately nourished patient, appears sick, toxic In resp distress - mild- on NC O2 constant dry cough TUBES/LINES/DRAINS: SKIN: No jaundice, rashes, or lesions. Ecchymoses on upper extremities. No wounds seen anteriorly. Skin temperature appropriate. Not diaphoretic. On exam: SKIN with needle alvarez and multiple embolic lesions involving fingers, toes soles HEAD: Atraumatic. Normocephalic. EYES: Pupils equal and round and reactive. Extraocular motions intact. No scleral icterus. No injection or drainage. Fundi not examined. ENT: Hearing grossly normal. Nose without bleeding or purulent drainage. Throat without visible erythema, exudates, masses, or lesions. NECK: Trachea midline. Supple, nontender. No palpable thyroid enlargement or nodularity. CARDIOVASCULAR: Regular tachycardia without murmurs, gallops, or rubs. No JVD. Peripheral pulses symmetric. RESPIRATORY/CHEST: Symmetric, unlabored respirations. Clear to auscultation. Breath sounds equal bilaterally. No wheezes, rales, or rhonchi. GASTROINTESTINAL: Abdomen soft, non-tender, nondistended. No hepato-splenomegaly , or palpable masses. No guarding. Bowel sounds present. GENITOURINARY: Without palpable bladder distension. MUSCULOSKELETAL: Extremities without clubbing, cyanosis, + mild BLE edema. No joint tenderness or effusion noted. No calf tenderness. No mottling or clubbing. LYMPHATICS: No palpable cervical or supraclavicular adenopathy.lear speech NEUROLOGICAL: Awake and alert. Motor and sensory grossly within normal limits. Follows commands. Co. Moves all extremities. PSYCHIATRIC: No obvious anxiety/depression. no apparent hallucinations or other psychotic thought process. Laboratory Laboratory Tests Test 07/11/17 01:50 07/11/17 03:44 07/11/17 11:35 07/11/17 12:27 Blood Urea Nitrogen 92 93 88 Creatinine 3.94 3.97 3.11 Random Glucose 104 98 87 Total Protein 6.0 6.2 6.1 Calcium Level 6.1 6.4 6.8 Sodium Level 120 122 125 Potassium Level 3.2 3.8 3.2 Chloride Level 83 83 88 Carbon Dioxide Level 18.9 20.6 19.7 Anion Gap 18 18 17 Estimat Glomerular Filtration Rate 14 14 18 Lactic Acid Level 1.6 Protein Corrected Calcium 6.6 6.8 7.3 White Blood Count 15.9 Red Blood Count 3.24 Hemoglobin 9.4 Hematocrit 26.9 Mean Corpuscular Volume 82.9 Mean Corpuscular Hemoglobin 29.1 Mean Corpuscular Hemoglobin Concent 35.1 Red Cell Distribution Width 16.4 Platelet Count 99 Mean Platelet Volume 7.2 Neutrophils (%) (Auto) 88.4 Lymphocytes (%) (Auto) 3.0 Monocytes (%) (Auto) 4.0 Eosinophils (%) (Auto) 4.5 Basophils (%) (Auto) 0.1 Neutrophils # (Auto) 14.0 Lymphocytes # (Auto) 0.5 Monocytes # (Auto) 0.6 Eosinophils # (Auto) 0.7 Basophils # (Auto) 0.0 CBC Comment AUTO DIFF Differential Total Cells Counted 100 Neutrophils % (Manual) 64 Band Neutrophils % 30 Lymphocytes % 3 Monocytes % 3 Neutrophils # (Manual) 14.9 Differential Comment FINAL DIFF MANUAL Toxic Granulation 1+ Dohle Bodies PRESENT Platelet Estimate LOW Platelet Morphology Comment NORMAL Ovalocytes 1+ Albumin 1.6 Alkaline Phosphatase 268 Aspartate Amino Transf (AST/SGOT) 70 Alanine Aminotransferase (ALT/SGPT) 43 Total Bilirubin 3.2 Rheumatoid Factor Screen NEGATIVE Rheumatoid Factor Titer HIV (1&2) Ab and P24 Ag, 4th Gener NONREACTIVE Hepatitis A IgM Antibody NONREACTIVE Hepatitis B Surface Antigen NONREACTIVE Blood Gas Patient Temperature 98.6 Venous Blood pH 7.39 Venous Blood Partial Pressure CO2 33 Venous Blood Partial Pressure O2 49 Venous Blood HCO3 20 Venous Blood Oxygen Saturation 79 Venous Blood Oxygen Content 10.5 Venous Blood Base Excess -4.3 Oxygen Delivery Device NASAL CANNULA Blood Gas Liter Flow 2 Date/Time Source Procedure Growth Status 07/10/17 19:00 Blood Peripheral Aerobic Blood Culture - Preliminary Staphylococcus Aureus Resulted 07/10/17 19:00 Anaerobic Blood Culture - Preliminary Gram Positive Cocci Resulted 07/10/17 19:00 Urine Catheterized Urine Urine Culture - Preliminary NO GROWTH IN 24 HOURS. Resulted 07/11/17 08:50 Wound Leg Gram Stain - Final Resulted 07/11/17 08:50 Wound Leg Wound Culture Pending Resulted Result Diagram: 07/11/17 0344 07/11/17 1135 Imaging Last Impressions Renal Ultrasound 07/11/17 0000 Signed Impressions: Service Date/Time: June 09:00 - CONCLUSION: 1. No acute findings. Mildly increased renal echogenicity characteristic of medical renal disease. Sebastien Moore MD Chest X-Ray 07/10/17 1816 Signed Impressions: Service Date/Time: Monday, July 10, 2017 18:53 - CONCLUSION: Patchy cavitary pneumonia, fairly stable on the right but substantially worse on the left. An up to date CT is scheduled. Chuy Yang MD Lower Extremity Ultrasound 07/10/17 0000 Signed Impressions: Service Date/Time: Monday, July 10, 2017 22:14 - CONCLUSION: Negative study. No venous thrombosis of either lower extremity. Chuy Yang MD CT Angiography 07/10/17 0000 Signed Impressions: Service Date/Time: Monday, July 10, 2017 19:34 - CONCLUSION: 1. No pulmonary embolus. 2. Widespread patchy cavitary pneumonia of both lungs and probably on the basis of septic emboli. 3. Nonspecific hepatosplenomegaly. 4. Probable tricuspid regurgitation. Chuy Yang MD Assessment and Plan Assessment and Plan I think pt has both R and L sided endocarditis clinically, MSSA - 2 D echo confirmed TV endocarditis Red man sd to vancomycin Plan: consult brim shaper for KALIN start Oxacillin dc zyvox fu blood clx Discussed Condition With grandparents at b/s Shana Mosley MD Jul 11, 2017 20:50
[2017-07-12] VITALS (11 sets, daily range): BP systolic 97–115; BP diastolic 50–64; PULSE 91–113; RESP 16–17; TEMP 95.8–98.2; O2SAT 92–98
[2017-07-12] MEDS: RESP: IPRATROPIUM 0.5 MG/2.5 ML NEB NEB SCH ×7 (00:06→23:23)
[2017-07-12] MEDS: SODIUM CHLOR 0.9% 1000 ML INJ 1,000 ML IV SCH ×3 (01:34→19:41)
[2017-07-12] MEDS: OXACILLIN INJ 2 GM in SODIUM CHLORIDE 0.9% INJ 100 ML IV SCH ×7 (01:34→23:12)
[2017-07-12] MEDS: MENTHOL LOZENGE BUCCAL PRN (01:37)
[2017-07-12 02:11] LABS: CREATININE, RANDOM URINE 47.5 MG/DL
[2017-07-12] MEDS: ACETAMINOPHEN 325 MG TAB PO PRN (02:39)
[2017-07-12] MEDS: PIPERACIL-TAZO 2.25 GM PREMIX 50 ML IV SCH ×3 (05:15→23:12)
[2017-07-12] MEDS: MUPIROCIN 2% OINT 22 GM TUBE TOPICAL SCH ×4 (05:15→19:52)
[2017-07-12 07:08] LABS: INTERNATIONAL NORMALIZED RATIO 1.4 RATIO; PROTHROMBIN TIME - PATIENT 14.5 SEC (9.8-11.6)
[2017-07-12 07:28] LABS: PHOSPHORUS 5.4 MG/DL (2.5-4.9)
[2017-07-12] MEDS ORDERED: POTASSIUM CHLORIDE 20 MEQ CONTROLLED RELEASE TAB PO ONE ×2 (07:45→14:15)
[2017-07-12] MEDS: SODIUM CHLORIDE 0.9% FLUSH 10 ML FLUSH IV FLUSH SCH ×2 (08:02→19:42)
[2017-07-12] MEDS: clonazePAM 1 MG TAB PO SCH ×2 (08:03→19:41)
[2017-07-12] MEDS: CALCIUM CARBONATE 1.25 GM (CA 500 MG) TAB PO SCH (08:03)
[2017-07-12] MEDS ORDERED: INFLUENZA VIRUS VACCINE (QUADRIVALENT) 0.5 ML SYR IM ONE (10:00)
--- NOTE | 2017-07-12 10:16 | HHI.FPPN ---
Subjective Remarks No acute issues overnight. Patient remains tachycardic up to 104 and afebrile. O2 saturation ranging 93-94% on 2L NC. She continues to have sore throat and spends a significant amount of time trying to clear her throat. She has been coughing up bloody sputum. She continues to have muscle aches in her arms and abdomen. She is feeling a general malaise and notes pain with inspiration. (Yi Harvey MD, R3) Objective Vitals Vital Signs Date Time Temp Pulse Resp B/P (MAP) Pulse Ox O2 Delivery O2 Flow Rate FiO2 07/12/17 08:28 93 Nasal Cannula 2.00 07/12/17 08:00 Nasal Cannula 2.00 07/12/17 08:00 96.5 103 16 115/64 (81) 94 07/12/17 05:00 98.2 91 17 112/62 (79) 98 07/12/17 04:20 103 07/12/17 00:07 101 07/12/17 00:00 97.3 104 17 98/50 (66) 97 07/11/17 20:07 98 Nasal Cannula 2.00 07/11/17 20:07 110 07/11/17 20:02 97 Nasal Cannula 2.00 07/11/17 20:00 98.3 108 17 108/58 (75) 98 07/11/17 16:00 97.3 101 22 103/56 (72) 96 07/11/17 12:23 99 Nasal Cannula 2.00 07/11/17 12:00 97.9 104 22 108/57 (74) 96 I/O 07/11/17 07/11/17 07/11/17 07/12/17 07/12/17 07/12/17 07:00 15:00 23:00 07:00 15:00 23:00 Intake Total 640 ml 1289 ml 1090 ml Output Total 200 ml 300 ml Balance 440 ml 1289 ml 790 ml Intake Oral 240 ml 480 ml 240 ml IV Total 400 ml 809 ml 850 ml Output Urine Total 300 ml Stool Total 200 ml # Voids 4 2 7 3 # Bowel Movements 3 4 2 (iY Harvey MD, R3) Result Diagram: 07/11/17 0344 07/11/17 1135 Imaging Last Impressions Renal Ultrasound 07/11/17 0000 Signed Impressions: Service Date/Time: June 09:00 - CONCLUSION: 1. No acute findings. Mildly increased renal echogenicity characteristic of medical renal disease. Sebastien Moore MD Chest X-Ray 07/10/176 Signed Impressions: Service Date/Time: Monday, July 10, 2017 18:53 - CONCLUSION: Patchy cavitary pneumonia, fairly stable on the right but substantially worse on the left. An up to date CT is scheduled. Chuy Yang MD Lower Extremity Ultrasound 07/10/17 0000 Signed Impressions: Service Date/Time: Monday, July 10, 2017 22:14 - CONCLUSION: Negative study. No venous thrombosis of either lower extremity. Chuy Yang MD CT Angiography 07/10/17 0000 Signed Impressions: Service Date/Time: Monday, July 10, 2017 19:34 - CONCLUSION: 1. No pulmonary embolus. 2. Widespread patchy cavitary pneumonia of both lungs and probably on the basis of septic emboli. 3. Nonspecific hepatosplenomegaly. 4. Probable tricuspid regurgitation. Chuy Yang MD Objective Remarks GENERAL: This is an acutely ill appearing female pt. SKIN: Multiple track alvarez noted on upper and lower extremity. On the medial aspect of the left lower leg there is a 2x3 cm lesion with surrounding erythema and scab at the center of lesion. No active drainage or bleeding present. Multiple splinter hemorrhages on bilateral fingers and toes and surrounding ecchymosis. HEAD: No temporal or scalp tenderness. Full range of motion of the neck. EYES: Pupils equal round and reactive. Extraocular motions intact. No scleral icterus. No injection or drainage. ENT: Dry mucous membranes. Nose without bleeding, purulent drainage. Throat without erythema, tonsillar hypertrophy or exudate. Uvula midline. Airway patent. NECK: No JVD or lymphadenopathy. Supple, nontender, no meningeal signs. CARDIOVASCULAR: Tachycardic rate with normal rhythm. Grade 2/6 systolic murmur heard best in the left lower sternal border. RESPIRATORY: Coarse breath sounds diffusely bilaterally. No accessory muscle use. NC in place. GASTROINTESTINAL: Abdomen nondistended. MUSCULOSKELETAL: No edema. No calf tenderness bilaterally. NEUROLOGICAL: Awake and alert. Motor and sensory grossly within normal limits. Normal speech. (Yi Harvey MD, R3) A/P Assessment and Plan Patient is a 26 yo female with PMH significant for endocarditis, septic pulmonary emboli, and IV drug use admitted for endocarditis. Discharge Planning Patient is acutely ill and will require several days or weeks of treatment in the hospital. (Yi Harvey MD, R3) Attending Attestation Patient seen and examined. Case reviewed and discussed with the resident team. Agree with plan of care as discussed with me and documented in the resident note. extremely ill with continuous bacteremia (Donna Faria MD) Problem List: (1) Endocarditis ICD Codes: I38 - Endocarditis, valve unspecified Status: Acute Plan: Patient with 2 prior episodes of endocarditis 11/2016 and 12/2016. Current symptoms started after relapse with IV heroin. Significant murmur, splinter hemorrhages of fingers and toes on physical exam. HIV, hepatitis panel negative Leukocytosis trending down to 15.9 today Sputum culture pending 07/10 urine culture No growth in 24 hours 07/11 Wound culture ordered of left lower extremity pending 07/11 Echo shows vegetation on the tricuspid valve, pulmonary valve regurg 07/10 Blood cultures staph aureus x 4 ID consulted, appreciate assistance * Cardiology consulted for a KALIN due to suspicion for both right and left sided endocarditis secondary to MSSA * Oxacillin 2g IV Q4H (started 07/12) and Zosyn 2.25g IV Q8H (started 07/11) * s/p Zyvox (07/11) Plan: Antibiotics as above Follow blood cultures Repeat blood cultures today. Imaging: * CTA: No PE. Widespread patchy cavitary pneumonia both lungs and probable on the basis of septic emboli. Nonspecific hepatosplenomegaly. Probable tricuspid regurgitation. * CXR: Patchy cavitary pneumonia, fairly stable on the right but substantially worse on the left * Lower extremity ultrasound: Negative for venous thrombosis (2) Acute renal failure ICD Codes: N17.9 - Acute kidney failure, unspecified Status: Acute Plan: Creatinine on admission was 4.56 with baseline being <1. Trending down to 3.11 today -Closely monitor electrolyte disturbances -Closely monitor fluid resuscitation due to poor renal function -Cardiac telemetry until electrolyte disturbances resolve -consult Nephrology appreciate recommendations- differential includes ATN, acute interstitial nephritis, post infectious GN, follow serology (3) Sepsis ICD Codes: A41.9 - Sepsis, unspecified organism Status: Acute Plan: Continues to meet sepsis criteria based on tachycardia, leukocytosis, and positive blood cultures/endocarditis. See above plan for endocarditis (4) Cavitary pneumonia ICD Codes: J18.9 - Pneumonia, unspecified organism; J98.4 - Other disorders of lung Status: Acute Plan: Found on CTA. See more detailed plan under endocarditis (5) IVDU (intravenous drug user) ICD Codes: F19.90 - Other psychoactive substance use, unspecified, uncomplicated Status: Acute Plan: History of IV drug use. Most recent relapse 1 week prior to admission. Patient reports she had been clean for the last 3 years. will offer help and rehab especially when she leaves the hospital (6) Hyponatremia ICD Codes: E87.1 - Hypo-osmolality and hyponatremia; J98.4 - Other disorders of lung Status: Acute Plan: Significant hyponatremia on admission with significantly elevated ratio of BUN/creatinine. Likely related to dehydration from sepsis/endocarditis. Lactic acid unremarkable. -Trending up, continue to monitor (7) Hypocalcemia ICD Codes: E83.51 - Hypocalcemia Status: Acute Plan: Hypocalcemia on admission. Will monitor and replete accordingly. (8) Nutrition, metabolism, and development symptoms ICD Codes: R63.8 - Other symptoms and signs concerning food and fluid intake Plan: Diet: Regular Electrolytes: see above Fluids: Maintenance with NS @ 113ml/hr DVT PPX: SCDs, chemical coagulation contraindicated in the setting of endocarditis. (Yi Harvey MD, R3) Problem Qualifiers (1) Endocarditis: Qualified Codes: I33.0 - Acute and subacute infective endocarditis (2) Acute renal failure: Qualified Codes: N17.9 - Acute kidney failure, unspecified (3) Sepsis: Qualified Codes: A41.9 - Sepsis, unspecified organism Yi Harvey MD, R3 Jul 12, 2017 10:16 Donna Faria MD Jul 15, 2017 21:19
[2017-07-12 12:50] LABS: AUTOMATED NEUTROPHIL # 15.4 TH/MM3 (1.8-7.7); BASOPHIL % 0.2 % (0.0-2.0); EOSINOPHIL % 0.2 % (0.0-4.0); HEMATOCRIT 28.3 % (35.0-46.0); HEMOGLOBIN 9.7 GM/DL (11.6-15.3); LYMPH % 3.6 % (9.0-44.0); LYMPHOCYTE # 0.6 TH/MM3 (1.0-4.8); MEAN CELL VOLUME 83.3 FL (80.0-100.0); MEAN CORPUSCULAR HEMOGLOBIN 28.6 PG (27.0-34.0); MEAN CORPUSCULAR HGB CONC 34.3 % (32.0-36.0); MEAN PLATELET VOLUME 7.4 FL (7.0-11.0); MONO % 4.3 % (0.0-8.0); MONOCYTE # 0.7 TH/MM3 (0-0.9); NEUT % 91.7 % (16.0-70.0); PLATELET COUNT 119 TH/MM3 (150-450); RED CELL DISTRIBUTION WIDTH 16.4 % (11.6-17.2); WHITE BLOOD COUNT 16.8 TH/MM3 (4.0-11.0)
--- NOTE | 2017-07-12 13:05 | MB ---
cc: Adrian Coker MD DATE OF CONSULT: Cardiology consultation for transesophageal echocardiogram. HISTORY OF PRESENT ILLNESS: This is a 26-year-old female with history of prior endocarditis and intravenous drug use, who presents with generalized body aches, fatigue, cough, painful fingers and toes. She has tested positive previously for HIV. Reports 1 episode of endocarditis back in December 2016. She is now 4/4 positive gram-positive cocci in chains and pairs. Infectious disease consulted for transesophageal echocardiogram. PAST MEDICAL HISTORY: Intravenous drug use, endocarditis, prior pulmonary embolism, on anticoagulation. ALLERGIES: VANCOMYCIN. SOCIAL HISTORY: As above. Does report illicit drug use. FAMILY HISTORY: Denies any family history of sudden cardiac . REVIEW OF SYSTEMS: A 12-point review of systems was performed, negative unless otherwise noted in history of present illness. PHYSICAL EXAMINATION: GENERAL: Alert and oriented x 3 in no acute distress. HEENT: Shows pupils reactive to light and accommodation. Extraocular muscle movements are intact. No elevation of jugular venous distention. No thyromegaly, lymphadenopathy. No carotid bruits. LUNGS: Clear to auscultation bilaterally. CARDIOVASCULAR: Regular rate and rhythm without murmurs, rubs or gallops. ABDOMEN: Nontender, nondistended, good bowel sounds, no hepatosplenomegaly. EXTREMITIES: Show no clubbing, cyanosis or edema. Good peripheral pulses. Cranial nerves intact. Motor, sensory grossly intact. LABORATORY DATA: WBC 15.9. Hemoglobin is 9.4. Platelet count is 99. Sodium 125, potassium 3.2. Chloride is 88. Bicarb is 19. BUN is 88. Creatinine is 3.11. ASSESSMENT: 1. Intravenous drug use. 2. Bacteremia. PLAN: Risks, benefits and alternatives discussed with the patient about transesophageal echocardiogram. The patient is agreeable but ate breakfast this morning. We will schedule n.p.o. after midnight on Saturday. Plan for KALIN on Saturday. MD RACHEL Aparicio/JOSE ALRFEDO , 12:47 PM , 01:03 PM [facility]OSPITALRegina
[2017-07-12] MEDS: BENZONATATE 100 MG CAP PO PRN ×2 (13:18→23:11)
[2017-07-12 13:27] LABS: ALBUMIN 1.5 GM/DL (3.4-5.0); ALKALINE PHOSPHATASE 190 U/L (45-117); ALT (GPT) 26 U/L (10-53); AST (GOT) 30 U/L (15-37); BLOOD UREA NITROGEN 61 MG/DL (7-18); CALCIUM 8.6 MG/DL (8.5-10.1); CHLORIDE 98 MEQ/L (98-107); CREATININE 1.67 MG/DL (0.50-1.00); GLOMERULAR FILTRATION RATE 37 ML/MIN (>89); GLUCOSE,RANDOM 98 MG/DL (74-106); SODIUM (NA) 132 MEQ/L (136-145); TOTAL BILIRUBIN ADULT 2.9 MG/DL (0.2-1.0); TOTAL PROTEIN 6.4 GM/DL (6.4-8.2)
--- NOTE | 2017-07-12 15:45 | HHI.NPPN ---
Subjective History of Present Illness 26-year-old female with history of endocarditis and IV drug use and anxiety. Presented here today from the [facility] clinic due to worsening generalized body aches, fatigue, cough, painful fingers and toes. Symptoms started about 1 week ago and have progressively worsened. Patient reports that she was previously clean rom IV drug use for 3 years but had relapse about 1 week ago. Used IV heroin. Nephrology is consulted for acute kidney injury with creatinine of 3.97 and GFR of 14 ml/min. Additional Remarks Patient is alert, no SOB, no abd. pain, started eating better. Review of Systems General Constitutional: Fatigue Cardiovascular Cardiac: Edema, FAULKNER Objective Data Data Vital Signs Date Time Temp Pulse Resp B/P (MAP) Pulse Ox O2 Delivery O2 Flow Rate FiO2 07/12/17 12:00 97.4 104 16 97/56 (70) 97 07/12/17 08:28 93 Nasal Cannula 2.00 07/12/17 08:00 Nasal Cannula 2.00 07/12/17 08:00 96.5 103 16 115/64 (81) 94 07/12/17 05:00 98.2 91 17 112/62 (79) 98 07/12/17 04:20 103 07/12/17 00:07 101 07/12/17 00:00 97.3 104 17 98/50 (66) 97 07/11/17 20:07 98 Nasal Cannula 2.00 07/11/17 20:07 110 07/11/17 20:02 97 Nasal Cannula 2.00 07/11/17 20:00 98.3 108 17 108/58 (75) 98 07/11/17 16:00 97.3 101 22 103/56 (72) 96 -: 07/12/17 1233 07/12/17 1233 Microbiology 07/12/17 Aerobic Blood Culture, Received Pending 07/12/17 Anaerobic Blood Culture, Received Pending 07/12/17 Aerobic Blood Culture, Received Pending 07/12/17 Anaerobic Blood Culture, Received Pending 07/12/17 Legionella Antigen - Final, Complete PRESUMPTIVE NEGATIVE FOR LEGIONELLA P... 07/12/17 Streptococcus pneumoniae Antigen (M - Final, Complete PRESUMPTIVE NEGATIVE FOR STREPTOCOCCU... Physical Exam General Appearance: No Acute Distress, Comfortable Eyes Eye Exam: Pupils Equal Throat Throat Exam: Oral Mucosa [place] & Moist Neck Neck Exam: Neck Supple Pulmonary Resp Exam: Breath Sounds Equal, No Distress, Rhonchi, Decreased Bases Cardiology CV Exam: Regular, Normal Sinus Rhythm Gastrointestinal/Abdomen GI Exam: Soft, Non-Tender, Bowel Sounds Present Extremeties Extremities Exam: Trace Edema Neurologic Neuro Exam: Alert, Awake Psychiatric Psych Exam: Appropriate Responses Assessment/Plan Problem List: (1) ENRICO (acute kidney injury) ICD Codes: N17.9 - Acute kidney failure, unspecified Plan: Renal US. No acute findings. Mildly increased renal echogenicity characteristic of medical renal disease. ENRICO from possible ATN vs interstitial nephritis vs glomerular nephritis from bacteremia Creatinine of 3.97 today and GFR 14 ml/min. Baseline in 01/13 was creatinine of less than 1 Electrolyte abnormalities Plan Monitor strict I+O Non oliguric Potassium WNL Positive blood cultures renal dosing antibiotics Avoid nephrotoxins Serology pending, C3 low, and C4 normal. Will monitor UOP and BMP. Patient has Acute kidney injury and Hyponatremia. Differential for ENRICO, will be either ATN, or Acute interstitial nephritis. Urine Na. is low,. Eosinophils negative. Most likely pre-renal. Continue antibiotics and follow the urine out put and BMP. (2) Hypocalcemia ICD Codes: E83.51 - Hypocalcemia Status: Acute Plan: On oral replacement Will order one dose of calcium gluconate (3) Hyponatremia ICD Codes: E87.1 - Hypo-osmolality and hyponatremia Plan: Hyponatremia from most likely SIADH from infection. Sodium level at 122 up from 117 on admission Will monitor Goal less than 6-8 meq correction in 24 hours (4) Thrombocytopenia ICD Codes: D69.6 - Thrombocytopenia, unspecified Plan: Plt 99 continue to monitor (5) Anemia ICD Codes: D64.9 - Anemia, unspecified (6) Endocarditis ICD Codes: I38 - Endocarditis, valve unspecified Status: Acute Problem Qualifiers (1) Endocarditis: Qualified Codes: I33.0 - Acute and subacute infective endocarditis Janak Alonso MD Jul 12, 2017 15:45
[2017-07-13] VITALS (9 sets, daily range): BP systolic 108–126; BP diastolic 64–73; PULSE 81–118; RESP 17–20; TEMP 97.2–99.4; O2SAT 93–98
[2017-07-13] MEDS: RESP: IPRATROPIUM 0.5 MG/2.5 ML NEB NEB SCH ×5 (02:30→20:15)
[2017-07-13] MEDS: OXACILLIN INJ 2 GM in SODIUM CHLORIDE 0.9% INJ 100 ML IV SCH ×6 (04:26→23:09)
[2017-07-13] MEDS: SODIUM CHLOR 0.9% 1000 ML INJ 1,000 ML IV SCH ×3 (04:26→22:46)
[2017-07-13] MEDS: MUPIROCIN 2% OINT 22 GM TUBE TOPICAL SCH ×3 (04:27→22:00)
[2017-07-13] MEDS: SODIUM CHLORIDE 0.9% FLUSH 10 ML FLUSH IV FLUSH SCH ×2 (09:00→19:36)
[2017-07-13] MEDS: clonazePAM 1 MG TAB PO SCH ×2 (09:09→19:35)
[2017-07-13] MEDS: PIPERACIL-TAZO 2.25 GM PREMIX 50 ML IV SCH (09:09)
[2017-07-13] MEDS: CALCIUM CARBONATE 1.25 GM (CA 500 MG) TAB PO SCH (09:09)
--- NOTE | 2017-07-13 09:28 | HHI.FPPN ---
Subjective Remarks Patient was tachycardic overnight with heart rate 97/2-98.2. Satting 95 % on 2 L NC O2. I/O 2.8/0.5. Patient states she has "pain all over," worse with moving. (Rosamaria Sanford MD R1) Objective Vitals Vital Signs Date Time Temp Pulse Resp B/P (MAP) Pulse Ox O2 Delivery O2 Flow Rate FiO2 07/13/17 07:41 95 Nasal Cannula 2.00 07/13/17 05:00 98.0 115 17 126/68 (87) 95 07/13/17 00:00 97.2 111 17 119/64 (82) 95 07/12/17 23:59 108 07/12/17 20:00 98.2 113 17 110/58 (75) 94 07/12/17 19:37 94 Nasal Cannula 2.00 07/12/17 19:35 93 Nasal Cannula 2.00 07/12/17 16:00 95.8 108 16 106/57 (73) 92 07/12/17 12:00 97.4 104 16 97/56 (70) 97 I/O 07/12/17 07/12/17 07/12/17 07/13/17 07/13/17 07/13/17 07:00 15:00 23:00 07:00 15:00 23:00 Intake Total 1090 ml 100 ml 1401 ml 1390 ml Output Total 300 ml 500 ml Balance 790 ml 100 ml 1401 ml 890 ml Intake Oral 240 ml 800 ml 240 ml IV Total 850 ml 100 ml 601 ml 1150 ml Output Urine Total 300 ml 500 ml # Voids 3 7 2 # Bowel Movements 2 5 1 (Rosamaria Sanford MD R1) Result Diagram: 07/12/17 1233 07/12/17 1233 Objective Remarks GENERAL: This is an acutely ill appearing female pt. SKIN: Multiple track alvarez noted on upper and lower extremity. On the medial aspect of the left lower leg there is a 2x3 cm lesion with surrounding erythema and scab at the center of lesion. No active drainage or bleeding present. Multiple splinter hemorrhages on bilateral fingers and toes and surrounding ecchymosis. Small hematoma covering the tip of the left thumb with overlying superficial skin desquamation. On the right toe #1, similar small hematoma. EYES: Extraocular motions intact. No scleral icterus. No injection or drainage. ENT: Moist mucous membranes. Throat without erythema, tonsillar hypertrophy or exudate. NECK: No JVD or lymphadenopathy. CARDIOVASCULAR: Tachycardic rate with normal rhythm. Grade 2/6 systolic murmur heard best in the left lower sternal border. No carotid bruits. RESPIRATORY: Coarse breath sounds w/occasional crackles. No accessory muscle use. NC in place. GASTROINTESTINAL: Abdomen nondistended. MUSCULOSKELETAL: No edema. No calf tenderness bilaterally. NEUROLOGICAL: Awake and alert. Motor and sensory grossly within normal limits. Normal speech. (Rosamaria Sanford MD R1) A/P Assessment and Plan Patient is a 26 yo female with PMH significant for endocarditis, septic pulmonary emboli, and IV drug use admitted for endocarditis. ID, Cardio, and and nephro consulted. Day #2 oxacillin, day 3 zosyn. Cx from 07/10 MSSA positive , Cx from 07/12 + for gram + cocci. Discharge Planning Patient is acutely ill and will require several days or weeks of treatment in the hospital. (Rosamaria Sanford MD R1) Attending Attestation Patient seen and examined. Case reviewed and discussed with the resident team. Agree with plan of care as discussed with me and documented in the resident note. poor woman has all the hallmarks of endocarditis. her lungs are likely seeding the rest of her body with emboli (Donna Faria MD) Problem List: (1) Endocarditis ICD Codes: I38 - Endocarditis, valve unspecified Status: Acute Plan: Patient with 2 prior episodes of endocarditis 11/2016 and 12/2016. Current symptoms started after relapse with IV heroin. Significant murmur, splinter hemorrhages of fingers and toes on physical exam. HIV, hepatitis panel negative Leukocytosis trending down to 15.9 today Sputum culture pending 07/10 urine culture No growth in 24 hours 07/11 Wound culture ordered of left lower extremity pending 07/11 Echo shows vegetation on the tricuspid valve, pulmonary valve regurg 07/10 Blood cultures staph aureus x 4 ID consulted, appreciate assistance * Cardiology consulted for a KALIN due to suspicion for both right and left sided endocarditis secondary to MSSA * Oxacillin 2g IV Q4H (started 07/12) and Zosyn 2.25g IV Q8H (started 07/11) * s/p Zyvox (07/11) Plan: Antibiotics as above Follow blood cultures Repeat blood cultures tomorrow KALIN Saturday Imaging: * CTA: No PE. Widespread patchy cavitary pneumonia both lungs and probable on the basis of septic emboli. Nonspecific hepatosplenomegaly. Probable tricuspid regurgitation. * CXR: Patchy cavitary pneumonia, fairly stable on the right but substantially worse on the left * Lower extremity ultrasound: Negative for venous thrombosis (2) Acute renal failure ICD Codes: N17.9 - Acute kidney failure, unspecified Status: Acute Plan: BUN 106, Creatinine on admission was 4.56 with baseline being <1. Likely prerenal. Trended down to 1.67 on 07/12 -Closely monitor electrolyte disturbances -Closely monitor fluid resuscitation due to poor renal function -Cardiac telemetry until electrolyte disturbances resolve -consult Nephrology appreciate recommendations- differential includes ATN, acute interstitial nephritis, post infectious GN, follow serology (3) Sepsis ICD Codes: A41.9 - Sepsis, unspecified organism Status: Acute Plan: Continues to meet sepsis criteria based on tachycardia, leukocytosis, and positive blood cultures/endocarditis. See above plan for endocarditis (4) Cavitary pneumonia ICD Codes: J18.9 - Pneumonia, unspecified organism; J98.4 - Other disorders of lung Status: Acute Plan: Found on CTA. See more detailed plan under endocarditis (5) IVDU (intravenous drug user) ICD Codes: F19.90 - Other psychoactive substance use, unspecified, uncomplicated Status: Acute Plan: History of IV drug use. Most recent relapse 1 week prior to admission. Patient reports she had been clean for the last 3 years. will offer help and rehab especially when she leaves the hospital (6) Hyponatremia ICD Codes: E87.1 - Hypo-osmolality and hyponatremia; J98.4 - Other disorders of lung Status: Acute Plan: Significant hyponatremia on admission with significantly elevated ratio of BUN/creatinine. Likely related to dehydration from sepsis/endocarditis. Lactic acid unremarkable. -Trending up, continue to monitor and provide IVF (7) Nutrition, metabolism, and development symptoms ICD Codes: R63.8 - Other symptoms and signs concerning food and fluid intake Plan: Diet: Regular Electrolytes: see above Fluids: Maintenance with NS @ 113ml/hr DVT PPX: SCDs, chemical coagulation contraindicated in the setting of endocarditis. (Rosamaria Sanford MD R1) Problem Qualifiers (1) Endocarditis: Qualified Codes: I33.0 - Acute and subacute infective endocarditis (2) Acute renal failure: Qualified Codes: N17.9 - Acute kidney failure, unspecified (3) Sepsis: Qualified Codes: A41.9 - Sepsis, unspecified organism Rosamaria Sanford MD R1 Jul 13, 2017 09:28 Donna Faria MD Jul 15, 2017 21:23
[2017-07-13 10:12] LABS: AUTOMATED NEUTROPHIL # 13.9 TH/MM3 (1.8-7.7); BASOPHIL % 0.1 % (0.0-2.0); HEMATOCRIT 24.7 % (35.0-46.0); HEMOGLOBIN 8.4 GM/DL (11.6-15.3); LYMPH % 6.5 % (9.0-44.0); MEAN CELL VOLUME 83.8 FL (80.0-100.0); MEAN CORPUSCULAR HEMOGLOBIN 28.6 PG (27.0-34.0); MEAN CORPUSCULAR HGB CONC 34.2 % (32.0-36.0); MEAN PLATELET VOLUME 6.7 FL (7.0-11.0); MONO % 4.8 % (0.0-8.0); MONOCYTE # 0.8 TH/MM3 (0-0.9); NEUT % 88.6 % (16.0-70.0); PLATELET COUNT 136 TH/MM3 (150-450); RED BLOOD COUNT 2.95 MIL/MM3 (4.00-5.30); RED CELL DISTRIBUTION WIDTH 16.2 % (11.6-17.2); WHITE BLOOD COUNT 15.7 TH/MM3 (4.0-11.0)
[2017-07-13 10:38] LABS: ALBUMIN 1.4 GM/DL (3.4-5.0); ALKALINE PHOSPHATASE 364 U/L (45-117); ALT (GPT) 22 U/L (10-53); AST (GOT) 38 U/L (15-37); BICARBONATE 25.2 MEQ/L (21.0-32.0); BLOOD UREA NITROGEN 37 MG/DL (7-18); CHLORIDE 100 MEQ/L (98-107); CREATININE 1.21 MG/DL (0.50-1.00); GLOMERULAR FILTRATION RATE 53 ML/MIN (>89); GLUCOSE,RANDOM 113 MG/DL (74-106); SODIUM (NA) 135 MEQ/L (136-145); TOTAL BILIRUBIN ADULT 2.5 MG/DL (0.2-1.0); TOTAL PROTEIN 6.5 GM/DL (6.4-8.2)
[2017-07-13] MEDS ORDERED: POTASSIUM CHLORIDE 20 MEQ CONTROLLED RELEASE TAB PO ONE (14:45)
[2017-07-13] MEDS: MENTHOL LOZENGE BUCCAL PRN (14:48)
[2017-07-13] MEDS: BENZONATATE 100 MG CAP PO PRN (14:49)
--- NOTE | 2017-07-13 15:04 | HHI.IDPN ---
Subjective Subjective Remarks cont to experince SOB On O2 1 L less constant cough all clx are + for MSSA Antibiotics oxacillin zosyn Allergies: Coded Allergies: vancomycin (Verified Allergy, Intermediate, Rash, 07/10/17) Objective . Vital Signs Date Time Temp Pulse Resp B/P (MAP) Pulse Ox O2 Delivery O2 Flow Rate FiO2 07/13/17 12:00 97.5 110 20 108/67 (81) 94 07/13/17 08:00 97.4 112 19 120/66 (84) 93 07/13/17 07:41 95 Nasal Cannula 2.00 07/13/17 05:00 98.0 115 17 126/68 (87) 95 07/13/17 00:00 97.2 111 17 119/64 (82) 95 07/12/17 23:59 108 07/12/17 20:00 98.2 113 17 110/58 (75) 94 07/12/17 19:37 94 Nasal Cannula 2.00 07/12/17 19:35 93 Nasal Cannula 2.00 07/12/17 16:00 95.8 108 16 106/57 (73) 92 . Laboratory Tests Test 07/12/17 12:33 07/13/17 09:40 White Blood Count 16.8 TH/MM3 15.7 TH/MM3 Red Blood Count 3.40 MIL/MM3 2.95 MIL/MM3 Hemoglobin 9.7 GM/DL 8.4 GM/DL Hematocrit 28.3 % 24.7 % Mean Corpuscular Volume 83.3 FL 83.8 FL Mean Corpuscular Hemoglobin 28.6 PG 28.6 PG Mean Corpuscular Hemoglobin Concent 34.3 % 34.2 % Red Cell Distribution Width 16.4 % 16.2 % Platelet Count 119 TH/MM3 136 TH/MM3 Mean Platelet Volume 7.4 FL 6.7 FL Neutrophils (%) (Auto) 91.7 % 88.6 % Lymphocytes (%) (Auto) 3.6 % 6.5 % Monocytes (%) (Auto) 4.3 % 4.8 % Eosinophils (%) (Auto) 0.2 % 0.0 % Basophils (%) (Auto) 0.2 % 0.1 % Neutrophils # (Auto) 15.4 TH/MM3 13.9 TH/MM3 Lymphocytes # (Auto) 0.6 TH/MM3 1.0 TH/MM3 Monocytes # (Auto) 0.7 TH/MM3 0.8 TH/MM3 Eosinophils # (Auto) 0.0 TH/MM3 0.0 TH/MM3 Basophils # (Auto) 0.0 TH/MM3 0.0 TH/MM3 CBC Comment DIFF FINAL DIFF FINAL Differential Comment Laboratory Tests Test 07/12/17 06:10 07/12/17 12:33 07/13/17 09:40 Uric Acid 10.2 MG/DL Phosphorus Level 5.4 MG/DL Random Cortisol 33.0 MCG/DL Blood Urea Nitrogen 61 MG/DL 37 MG/DL Creatinine 1.67 MG/DL 1.21 MG/DL Random Glucose 98 MG/DL 113 MG/DL Total Protein 6.4 GM/DL 6.5 GM/DL Albumin 1.5 GM/DL 1.4 GM/DL Calcium Level 8.6 MG/DL 8.0 MG/DL Alkaline Phosphatase 190 U/L 364 U/L Aspartate Amino Transf (AST/SGOT) 30 U/L 38 U/L Alanine Aminotransferase (ALT/SGPT) 26 U/L 22 U/L Total Bilirubin 2.9 MG/DL 2.5 MG/DL Sodium Level 132 MEQ/L 135 MEQ/L Potassium Level 3.1 MEQ/L 3.3 MEQ/L Chloride Level 98 MEQ/L 100 MEQ/L Carbon Dioxide Level 24.0 MEQ/L 25.2 MEQ/L Anion Gap 10 MEQ/L 10 MEQ/L Estimat Glomerular Filtration Rate 37 ML/MIN 53 ML/MIN Microbiology Date/Time Source Procedure Growth Status 07/12/17 06:17 Blood Peripheral Aerobic Blood Culture - Preliminary Gram Positive Cocci Resulted 07/12/17 06:17 Blood Peripheral Anaerobic Blood Culture - Preliminary NO GROWTH IN 1 DAY Resulted 07/12/17 06:10 Blood Peripheral Aerobic Blood Culture - Preliminary Gram Positive Cocci Resulted 07/12/17 06:10 Blood Peripheral Anaerobic Blood Culture - Preliminary NO GROWTH IN 1 DAY Resulted 07/10/17 19:00 Blood Peripheral Aerobic Blood Culture - Final Staphylococcus Aureus Complete 07/10/17 19:00 Anaerobic Blood Culture - Final Staphylococcus Aureus Complete 07/10/17 18:55 Blood Peripheral Aerobic Blood Culture - Final Staphylococcus Aureus Complete 07/10/17 18:55 Anaerobic Blood Culture - Final Staphylococcus Aureus Complete 07/12/17 18:32 Sputum Expectorated Sputum Gram Stain - Final Resulted 07/12/17 18:32 Sputum Culture - Preliminary Staphylococcus Aureus Resulted 07/12/17 01:33 Urine Clean Catch Legionella Antigen - Final PRESUMPTIVE NEGATIVE FOR LEGIONELLA P... Complete 07/12/17 01:33 Urine Clean Catch Streptococcus pneumoniae Antigen (M - Final PRESUMPTIVE NEGATIVE FOR STREPTOCOCCU... Complete 07/10/17 19:00 Urine Catheterized Urine Urine Culture - Final 50-100,000 CFU/ML MIXED GRAM POSITIVE... Complete 07/11/17 08:50 Wound Leg Gram Stain - Final Complete 07/11/17 08:50 Wound Culture - Final Staphylococcus Aureus Beta Streptococcus Group F Complete Imaging Last Impressions Renal Ultrasound 07/11/17 0000 Signed Impressions: Service Date/Time: June 09:00 - CONCLUSION: 1. No acute findings. Mildly increased renal echogenicity characteristic of medical renal disease. Sebastien Moore MD Chest X-Ray 07/10/17 1816 Signed Impressions: Service Date/Time: Monday, July 10, 2017 18:53 - CONCLUSION: Patchy cavitary pneumonia, fairly stable on the right but substantially worse on the left. An up to date CT is scheduled. Chuy Yang MD Lower Extremity Ultrasound 07/10/17 0000 Signed Impressions: Service Date/Time: Monday, July 10, 2017 22:14 - CONCLUSION: Negative study. No venous thrombosis of either lower extremity. Chuy Yang MD CT Angiography 07/10/17 0000 Signed Impressions: Service Date/Time: Monday, July 10, 2017 19:34 - CONCLUSION: 1. No pulmonary embolus. 2. Widespread patchy cavitary pneumonia of both lungs and probably on the basis of septic emboli. 3. Nonspecific hepatosplenomegaly. 4. Probable tricuspid regurgitation. Chuy Yang MD Physical Exam CONSTITUTIONAL/GENERAL: This is an adequately nourished patient, appears less sick, toxic, though still looks quite acutely ill In no resp distress; occasional dry cough TUBES/LINES/DRAINS: SKIN: No jaundice, rashes, or lesions. Ecchymoses on upper extremities. No wounds seen anteriorly. Skin temperature appropriate. Not diaphoretic. On exam: SKIN with needle alvarez and multiple embolic lesions involving fingers, toes soles L thumb and L hallux evolving large embolic lesions EYES: Pupils equal and round and reactive. Extraocular motions intact. No scleral icterus. No injection or drainage. Fundi not examined. CARDIOVASCULAR: Regular tachycardia without murmurs, gallops, or rubs. No JVD. Peripheral pulses symmetric. RESPIRATORY/CHEST: Symmetric, unlabored respirations. Clear to auscultation. Breath sounds equal bilaterally. No wheezes, rales, or rhonchi. GASTROINTESTINAL: Abdomen soft, non-tender, nondistended. No hepato-splenomegaly , or palpable masses. No guarding. Bowel sounds present. MUSCULOSKELETAL: Extremities without clubbing, cyanosis, + mild BLE edema. No joint tenderness or effusion noted. No calf tenderness. No mottling or clubbing. LYMPHATICS: No palpable cervical or supraclavicular adenopathy.lear speech NEUROLOGICAL: Awake and alert. Motor and sensory grossly within normal limits. Follows commands. Clear speech. Moves all extremities. PSYCHIATRIC: No obvious anxiety/depression. no apparent hallucinations or other psychotic thought process. L Assessment & Plan Remarks I think pt has both R and L sided endocarditis clinically, MSSA - 2 D echo confirmed TV endocarditis Red man sd to vancomycin Plan: awaitingr KALIN cont Oxacillin fu serial blood clx Discussed Condition With grandmother at b/s Shana Mosley MD Jul 13, 2017 15:04
--- NOTE | 2017-07-13 15:14 | HHI.NPPN ---
Subjective History of Present Illness 26-year-old female with history of endocarditis and IV drug use and anxiety. Presented here today from the [facility] clinic due to worsening generalized body aches, fatigue, cough, painful fingers and toes. Symptoms started about 1 week ago and have progressively worsened. Patient reports that she was previously clean rom IV drug use for 3 years but had relapse about 1 week ago. Used IV heroin. Nephrology is consulted for acute kidney injury with creatinine of 3.97 and GFR of 14 ml/min. Additional Remarks No acute complaints Review of Systems General Constitutional: Fatigue Cardiovascular Cardiac: Edema, FAULKNER Objective Data Data Vital Signs Date Time Temp Pulse Resp B/P (MAP) Pulse Ox O2 Delivery O2 Flow Rate FiO2 07/13/17 12:00 97.5 110 20 108/67 (81) 94 07/13/17 08:00 97.4 112 19 120/66 (84) 93 07/13/17 07:41 95 Nasal Cannula 2.00 07/13/17 05:00 98.0 115 17 126/68 (87) 95 07/13/17 00:00 97.2 111 17 119/64 (82) 95 07/12/17 23:59 108 07/12/17 20:00 98.2 113 17 110/58 (75) 94 07/12/17 19:37 94 Nasal Cannula 2.00 07/12/17 19:35 93 Nasal Cannula 2.00 07/12/17 16:00 95.8 108 16 106/57 (73) 92 -: 07/13/17 0940 07/13/17 0940 Microbiology 07/12/17 Gram Stain - Final, Resulted 07/12/17 Sputum Culture - Preliminary, Resulted Staphylococcus Aureus Physical Exam General Appearance: No Acute Distress, Comfortable Eyes Eye Exam: Pupils Equal Throat Throat Exam: Oral Mucosa Maxwell & Moist Neck Neck Exam: Neck Supple Pulmonary Resp Exam: Breath Sounds Equal, No Distress, Rhonchi, Decreased Bases Cardiology CV Exam: Regular, Normal Sinus Rhythm Gastrointestinal/Abdomen GI Exam: Soft, Non-Tender, Bowel Sounds Present Extremeties Extremities Exam: Trace Edema Neurologic Neuro Exam: Alert, Awake Psychiatric Psych Exam: Appropriate Responses Assessment/Plan Problem List: (1) ENRICO (acute kidney injury) ICD Codes: N17.9 - Acute kidney failure, unspecified Plan: Renal US. No acute findings. Mildly increased renal echogenicity characteristic of medical renal disease. ENRICO from possible ATN vs interstitial nephritis vs glomerular nephritis from bacteremia Creatinine improved to 1.2 today Baseline in 01/13 was creatinine of less than 1 Electrolyte abnormalities Plan Renal function improving Replaced potassium today Positive blood cultures renal dosing antibiotics Avoid nephrotoxins Serology pending, C3 low, and C4 normal. Most likely pre-renal. Continue antibiotics and follow the urine out put and BMP. 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 Improved now (4) Thrombocytopenia ICD Codes: D69.6 - Thrombocytopenia, unspecified Plan: improved (5) Anemia ICD Codes: D64.9 - Anemia, unspecified (6) Endocarditis ICD Codes: I38 - Endocarditis, valve unspecified Status: Acute Problem Qualifiers (1) Endocarditis: Qualified Codes: I33.0 - Acute and subacute infective endocarditis Arpan Stout MD Jul 13, 2017 15:14
[2017-07-13] MEDS: ONDANSETRON HCL 4 MG/2 ML VIAL IV PUSH PRN (19:36)
[2017-07-14] VITALS (12 sets, daily range): BP systolic 113–143; BP diastolic 66–83; PULSE 95–113; RESP 15–21; TEMP 95.7–100; O2SAT 93–100
[2017-07-14] MEDS: RESP: IPRATROPIUM 0.5 MG/2.5 ML NEB NEB SCH ×7 (00:01→23:34)
[2017-07-14] MEDS: BENZONATATE 100 MG CAP PO PRN ×3 (00:30→18:00)
[2017-07-14] MEDS: ACETAMINOPHEN 325 MG TAB PO PRN (02:33)
[2017-07-14] MEDS: SODIUM CHLOR 0.9% 1000 ML INJ 1,000 ML IV SCH ×2 (02:50→14:00)
[2017-07-14] MEDS: OXACILLIN INJ 2 GM in SODIUM CHLORIDE 0.9% INJ 100 ML IV SCH ×6 (03:06→22:43)
[2017-07-14] MEDS: MUPIROCIN 2% OINT 22 GM TUBE TOPICAL SCH ×3 (03:07→20:37)
[2017-07-14] MEDS: ONDANSETRON HCL 4 MG/2 ML VIAL IV PUSH PRN (05:13)
[2017-07-14] MEDS ORDERED: ACETAMINOPHEN/HYDROcodone 325 MG/5 MG TAB PO PRN (08:45)
[2017-07-14] MEDS: SODIUM CHLORIDE 0.9% FLUSH 10 ML FLUSH IV FLUSH SCH ×2 (09:00→20:37)
[2017-07-14] MEDS: clonazePAM 1 MG TAB PO SCH ×2 (09:11→20:37)
[2017-07-14] MEDS: CALCIUM CARBONATE 1.25 GM (CA 500 MG) TAB PO SCH (09:11)
[2017-07-14 09:40] LABS: AUTOMATED NEUTROPHIL # 12.4 TH/MM3 (1.8-7.7); BASOPHIL % 0.2 % (0.0-2.0); EOSINOPHIL % 0.1 % (0.0-4.0); HEMATOCRIT 24.4 % (35.0-46.0); HEMOGLOBIN 8.2 GM/DL (11.6-15.3); LYMPH % 9.4 % (9.0-44.0); LYMPHOCYTE # 1.4 TH/MM3 (1.0-4.8); MEAN CELL VOLUME 84.3 FL (80.0-100.0); MEAN CORPUSCULAR HEMOGLOBIN 28.5 PG (27.0-34.0); MEAN CORPUSCULAR HGB CONC 33.8 % (32.0-36.0); MEAN PLATELET VOLUME 6.7 FL (7.0-11.0); MONO % 5.6 % (0.0-8.0); MONOCYTE # 0.8 TH/MM3 (0-0.9); NEUT % 84.7 % (16.0-70.0); PLATELET COUNT 146 TH/MM3 (150-450); RED BLOOD COUNT 2.89 MIL/MM3 (4.00-5.30); RED CELL DISTRIBUTION WIDTH 16.4 % (11.6-17.2); WHITE BLOOD COUNT 14.7 TH/MM3 (4.0-11.0)
[2017-07-14 09:48] LABS: ALBUMIN 1.5 GM/DL (3.4-5.0); AST (GOT) 33 U/L (15-37); BICARBONATE 20.2 MEQ/L (21.0-32.0); BLOOD UREA NITROGEN 29 MG/DL (7-18); CALCIUM 8.1 MG/DL (8.5-10.1); CHLORIDE 102 MEQ/L (98-107); CREATININE 1.15 MG/DL (0.50-1.00); GLOMERULAR FILTRATION RATE 57 ML/MIN (>89); GLUCOSE,RANDOM 95 MG/DL (74-106); MAGNESIUM 1.7 MG/DL (1.5-2.5); SODIUM (NA) 133 MEQ/L (136-145)
[2017-07-14] MEDS: ACETAMINOPHEN/HYDROcodone 325 MG/7.5 MG TAB PO PRN ×4 (10:04→22:43)
[2017-07-14 10:10] LABS: ALKALINE PHOSPHATASE 218 U/L (45-117); ALT (GPT) 24 U/L (10-53); PHOSPHORUS 4.2 MG/DL (2.5-4.9); TOTAL BILIRUBIN ADULT 2.4 MG/DL (0.2-1.0); TOTAL PROTEIN 6.6 GM/DL (6.4-8.2)
--- NOTE | 2017-07-14 12:43 | RADRPT ---
EXAM DATE/TIME: 07/14/2017 11:50 [facility] COMPARISON: CT PULMONARY ANGIOGRAM, July 10, 2017, 19:34. US LEG BILATERAL VENOUS DOPPLER, July 10, 2017, 22:1 4. INDICATIONS : Bilateral leg pain. MEDICAL HISTORY : Pulmonary embolism. Endocarditis. Asthma. Anxiety. Substance abuse. History of anticoagulant therapy, Eliquis. SURGICAL HISTORY : None. ENCOUNTER: Subsequent ACUITY: 1 week PAIN SCORE: 8/10 LOCATION: Bilateral leg. TECHNIQUE: Venous ultrasound of the left and right leg was performed from the inguinal ligament to the proximal calf. Real-time, color Doppler and spectral tracing, compression and augmentation techniques were us ed. FINDINGS: RIGHT LEG: There is normal compressibility of the deep venous system from the inguinal region to the proximal ca lf. No echogenic clot is seen in the lumen of the common femoral, femoral, popliteal, and posterior tibial veins. There is a normal response of the venous system to proximal and distal augmentation an d respiration. LEFT LEG: There is normal compressibility of the deep venous system from the inguinal region to the proximal ca lf. No echogenic clot is seen in the lumen of the common femoral, femoral, popliteal, and posterior tibial veins. There is a normal response of the venous system to proximal and distal augmentation an d respiration. CONCLUSION: Normal examination. Dang Bahena MD on July 14, 2017 at 12:34 Board Certified Radiologist. This report was verified electronically.
[2017-07-14] MEDS ORDERED: cloNIDine HCL 0.1 MG TAB PO PRN (12:45)
--- NOTE | 2017-07-14 13:10 | HHI.FPPN ---
Subjective Remarks Patient states that her body is in pain today, cannot specify other then her legs are tender to palpation primarily at the calves. Afebrile overnight, temperature above 95.0. His been on 2 L nasal cannula oxygen to maintain sats above 92%. Has been having more than 6 voids and bowel movements overnight. Appears agitated and restless. Last relapse of IV drug use was 1 week prior to admission. (Rosamaria Sanford MD R1) Objective Vitals Vital Signs Date Time Temp Pulse Resp B/P (MAP) Pulse Ox O2 Delivery O2 Flow Rate FiO2 07/14/17 12:07 94 Nasal Cannula 2.00 07/14/17 08:00 96.3 101 18 115/72 (86) 96 07/14/17 04:58 100.0 108 21 117/66 (83) 93 07/14/17 04:00 113 07/14/17 03:59 94 Nasal Cannula 2.00 07/14/17 00:01 95 Nasal Cannula 2.00 07/14/17 00:00 98.3 109 17 118/67 (84) 97 07/13/17 23:59 118 07/13/17 20:17 95 Nasal Cannula 2.00 07/13/17 20:00 99.4 81 17 125/73 (90) 98 07/13/17 20:00 113 07/13/17 19:35 Nasal Cannula 2.00 07/13/17 16:00 97.7 109 17 108/71 (83) 97 I/O 07/13/17 07/13/17 07/13/17 07/14/17 07/14/17 07/14/17 07:00 15:00 23:00 07:00 15:00 23:00 Intake Total 1390 ml 200 ml 920 ml 1960 ml 100 ml Output Total 500 ml Balance 890 ml 200 ml 920 ml 1960 ml 100 ml Intake Oral 240 ml 720 ml 760 ml IV Total 1150 ml 200 ml 200 ml 1200 ml 100 ml Output Urine Total 500 ml # Voids 2 4 4 # Bowel Movements 1 5 1 (Rosamaria Sanford MD R1) Result Diagram: 07/14/17 0859 07/14/17 0859 Objective Remarks GENERAL: This is an acutely ill appearing female pt. appears slightly more edematous compared to yesterday. SKIN: Healing sites of multiple track alvarez noted on upper and lower extremity. On the medial aspect of the left lower leg there is a 2x3 cm lesion with clear drainage and scab around the center of lesion. No bleeding present. Multiple splinter hemorrhages on bilateral fingers and toes and surrounding ecchymosis. Small hematoma covering the tip of the left thumb with overlying superficial skin desquamation. On the right toe #1, similar small hematoma. EYES: Extraocular motions intact. ENT: Moist mucous membranes. Throat without erythema, tonsillar hypertrophy or exudate. NECK: No JVD or lymphadenopathy. CARDIOVASCULAR: Tachycardic rate with normal rhythm. Grade 2/6 systolic murmur heard best in the left lower sternal border. No carotid bruits. RESPIRATORY: Clear lung sounds. No accessory muscle use. NC in place. GASTROINTESTINAL: Abdomen nondistended. MUSCULOSKELETAL: No edema. Calf tenderness bilaterally to palpation. No erythema. Minimal swelling of the lower extremities noted. NEUROLOGICAL: Awake and alert. Motor and sensory grossly within normal limits. Normal speech. (Rosamaria Sanford MD R1) A/P Assessment and Plan Patient is a 26 yo female with PMH significant for endocarditis, septic pulmonary emboli, and IV drug use admitted for endocarditis. Echo shows tricuspid regurgitation (secondary to valve vegetation) and pulmonary hypertension. Ejection fraction greater than 55%. Patient was also found to have prerenal AKA, cavitary pneumonia, hyponatremia and hypokalemia, and lower leg extremity ulceration. ID, Cardio, and and nephro were consulted. Day #3 oxacillin, day 4 zosyn. Cx from 3/14 MSSA positive, Cx from 3/16 + for gram + cocci. IV fluids were started, patient also given clonazepam and DuoNeb treatments. Will order cultures again today. We'll decrease fluids today since patient appears more edematous compared to yesterday's exam. Plan to continue ordering cultures until negative, after that 6 weeks of treatment on antibiotic therapy will start. Plan for KALIN on Saturday due to concern for multiple areas of valvular vegetation. Discharge Planning Patient is acutely ill and will require weeks of treatment in the hospital. (Rosamaria Sanford MD R1) Attending Attestation The exam, history, and the medical decision-making described in the above note were completed with the assistance of the resident physician. I reviewed and agree with the findings presented. I attest that I had a [id number] encounter with the patient on the same day. Patient reports widespread pain but more concentrated in the left hip. Worse with rotation of the hip. She states she is still SOB but feels this is overall improved. She has some leg edema and on exam is edematous in her sacral area. Lungs -- bilateral crackles, bases, Cards regular with 2/6 murmur, left hip pain with rotation US legs negative for DVT -- will check xray to r/o septic arthritis. Decrease fluids as clinically volume overload and start strict I/O monitoring. nutrition consult as patient not taking any real nutrition in. . (Tessie Siegel MD) Problem List: (1) Lower extremity pain, bilateral ICD Codes: M79.604 - Pain in right leg; M79.605 - Pain in left leg Plan: Differential: Withdrawal versus DVTs versus pain secondary to critical illness Order bilateral lower extremity Dopplers Shohola when necessary for pain : Shohola 5-325 mg every 4 when necessary Shohola 7.5-325 mg when necessary Will likely require further pain control (2) Endocarditis ICD Codes: I38 - Endocarditis, valve unspecified Status: Acute Plan: Patient with 2 prior episodes of endocarditis 11/2016 and 12/2016. Current symptoms started after relapse with IV heroin. Significant murmur, splinter hemorrhages of fingers and toes on physical exam. HIV, hepatitis panel negative Leukocytosis trending down to 15.9 today Sputum culture pending 07/10 urine culture No growth in 24 hours 07/11 Wound culture ordered of left lower extremity pending 07/11 Echo shows vegetation on the tricuspid valve, pulmonary valve regurg 07/10 Blood cultures staph aureus x 4 ID consulted, appreciate assistance * Cardiology consulted for a KALIN due to suspicion for both right and left sided endocarditis secondary to MSSA * Oxacillin 2g IV Q4H (started 07/12) and Zosyn 2.25g IV Q8H (started 07/11) * s/p Zyvox (07/11) Plan: Antibiotics as above Repeat blood cultures today, follow KALIN Saturday Imaging: * CTA: No PE. Widespread patchy cavitary pneumonia both lungs and probable on the basis of septic emboli. Nonspecific hepatosplenomegaly. Probable tricuspid regurgitation. * CXR: Patchy cavitary pneumonia, fairly stable on the right but substantially worse on the left * Lower extremity ultrasound: Negative for venous thrombosis (3) Acute renal failure ICD Codes: N17.9 - Acute kidney failure, unspecified Status: Acute Plan: BUN 106, Creatinine on admission was 4.56 with baseline being <1. Likely prerenal. Trending downward -Closely monitor electrolyte disturbances -Closely monitor fluid resuscitation due to poor renal function -Cardiac telemetry until electrolyte disturbances resolve -consult Nephrology appreciate recommendations (4) Sepsis ICD Codes: A41.9 - Sepsis, unspecified organism Status: Acute Plan: Continues to meet sepsis criteria based on tachycardia, leukocytosis, and positive blood cultures/endocarditis. See above plan for endocarditis (5) Cavitary pneumonia ICD Codes: J18.9 - Pneumonia, unspecified organism; J98.4 - Other disorders of lung Status: Acute Plan: Found on CTA. See more detailed plan under endocarditis (6) IVDU (intravenous drug user) ICD Codes: F19.90 - Other psychoactive substance use, unspecified, uncomplicated Status: Acute Plan: History of IV drug use. Most recent relapse 1 week prior to admission. Patient reports she had been clean for the last 3 years. will offer help and rehab especially when she leaves the hospital Patient may be starting to withdraw as this is day 4 of hospitalization Order clonidine 0.1 mg every 6 hours when necessary for agitation. Avoid opiates (7) Hyponatremia ICD Codes: E87.1 - Hypo-osmolality and hyponatremia; J98.4 - Other disorders of lung Status: Acute Plan: Significant hyponatremia on admission with significantly elevated ratio of BUN/creatinine. Likely related to dehydration from sepsis/endocarditis. Lactic acid unremarkable. -Trending up, continue to monitor and provide IVF (8) Nutrition, metabolism, and development symptoms ICD Codes: R63.8 - Other symptoms and signs concerning food and fluid intake Plan: Diet: Regular Electrolytes: see above Fluids: Maintenance with NS @ 90ml/hr DVT PPX: SCDs, chemical coagulation contraindicated in the setting of endocarditis. (Rosamaria Sanford MD R1) Problem Qualifiers (1) Endocarditis: Qualified Codes: I33.0 - Acute and subacute infective endocarditis (2) Acute renal failure: Qualified Codes: N17.9 - Acute kidney failure, unspecified (3) Sepsis: Qualified Codes: A41.9 - Sepsis, unspecified organism Rosamaria Sanford MD R1 Jul 14, 2017 13:10 Tessie Siegel MD Jul 14, 2017 13:54
[2017-07-14] MEDS ORDERED: POTASSIUM CHLORIDE 20 MEQ CONTROLLED RELEASE TAB PO ONE (14:15)
--- NOTE | 2017-07-14 15:03 | RADRPT ---
EXAM DATE/TIME: 07/14/2017 14:51 [facility] COMPARISON: No previous studies available for comparison. INDICATIONS : Pain in right hip joint without trauma. MEDICAL HISTORY : Endocarditis. SURGICAL HISTORY : None. ENCOUNTER: Initial ACUITY: 1 day PAIN SCORE: 8/10 LOCATION: Right hip. FINDINGS: A lateral view of the right hip with AP pelvis was obtained. No definite fractures, dislocations, ly tic or sclerotic lesions are seen. The joint space is well maintained. CONCLUSION: Unremarkable examination of the right hip. Dang Bahena MD on July 14, 2017 at 15:00 Board Certified Radiologist. This report was verified electronically.
[2017-07-14] MEDS: ONDANSETRON HCL 4 MG/2 ML VIAL IVP PRN (18:12)
[2017-07-15] VITALS (7 sets, daily range): BP systolic 110–136; BP diastolic 57–73; PULSE 103–119; RESP 15–20; TEMP 96.7–98.9; O2SAT 94–98
[2017-07-15] MEDS: OXACILLIN INJ 2 GM in SODIUM CHLORIDE 0.9% INJ 100 ML IV SCH ×6 (03:11→23:28)
[2017-07-15] MEDS: SODIUM CHLOR 0.9% 1000 ML INJ 1,000 ML IV SCH ×3 (03:12→23:30)
[2017-07-15] MEDS: MUPIROCIN 2% OINT 22 GM TUBE TOPICAL SCH ×3 (03:12→20:04)
[2017-07-15] MEDS: RESP: IPRATROPIUM 0.5 MG/2.5 ML NEB NEB SCH ×5 (03:46→21:14)
[2017-07-15] MEDS: ACETAMINOPHEN/HYDROcodone 325 MG/7.5 MG TAB PO PRN ×2 (05:00→10:40)
[2017-07-15] MEDS: clonazePAM 1 MG TAB PO SCH ×2 (08:05→20:03)
[2017-07-15] MEDS: CALCIUM CARBONATE 1.25 GM (CA 500 MG) TAB PO SCH (08:05)
[2017-07-15] MEDS: SODIUM CHLORIDE 0.9% FLUSH 10 ML FLUSH IV FLUSH SCH ×2 (08:06→20:04)
[2017-07-15] MEDS ORDERED: PROPOFOL 200 MG/20 ML AMP ONE (09:28)
--- NOTE | 2017-07-15 10:07 | PD.CARD.PN ---
Subjective Subjective Remarks no complaints Objective Medications Current Medications Medications (Trade) Dose Ordered Sig/Gary Route Start Time Stop Time Status Last Admin Sodium Chloride 1,000 ml @ 90 mls/hr Q11H7M IV 07/10/17 20:49 07/15/17 03:12 (NS Flush) 2 ml UNSCH PRN IV FLUSH 07/10/17 21:00 (NS Flush) 2 ml BID IV FLUSH 07/10/17 21:00 07/15/17 08:06 (Tylenol) 650 mg Q4H PRN PO 07/10/17 21:00 07/14/17 02:33 (Zofran Inj) 4 mg Q6H PRN IVP 07/10/17 21:00 07/14/17 18:12 (Narcan Inj) 0.4 mg UNSCH PRN IV PUSH 07/10/17 21:00 (Milk Of Magnesia Liq) 30 ml Q12H PRN PO 07/10/17 21:00 (Senokot) 17.2 mg Q12H PRN PO 07/10/17 21:00 (Dulcolax Supp) 10 mg DAILY PRN RECTAL 07/10/17 21:00 (Lactulose Liq) 30 ml DAILY PRN PO 07/10/17 21:00 ([place] Hernando) 1 lozenge Q1H PRN BUCCAL 07/11/17 09:00 07/13/17 14:48 (Tessalon) 200 mg Q8H PRN PO 07/11/17 09:00 07/14/17 18:00 (KlonoPIN) 1 mg BID PO 07/11/17 09:00 07/15/17 08:05 (Bactroban 2% Oint) 1 applic Q8HR TOPICAL 07/11/17 09:00 07/15/17 03:12 (Blistex Lip Walker) 1 applic 5 TIMES A DAY PRN TOPICAL 07/11/17 09:00 07/11/17 17:57 (Zofran Inj) 4 mg Q6H PRN IV PUSH 07/11/17 09:00 07/14/17 05:13 (Oscal) 500 mg DAILY PO 07/11/17 10:15 07/15/17 08:05 Oxacillin Sodium 2 gm/Sodium Chloride 100 ml @ 200 mls/hr Q4H IV 07/11/17 23:00 07/15/17 07:00 (Atrovent Neb) 0.5 mg Q4HR NEB NEB 07/12/17 00:00 07/14/17 23:34 ([place] 5-325 Mg) 1 tab Q4H PRN PO 07/14/17 08:45 ([place] 7.5-325 Mg) 1 tab Q4H PRN PO 07/14/17 08:45 07/15/17 05:00 (Catapres) 0.1 mg Q6H PRN PO 07/14/17 12:45 (Ativan) 1 mg Q6H PRN PO 07/14/17 14:15 Vital Signs / I&O Vital Signs Date Time Temp Pulse Resp B/P (MAP) Pulse Ox O2 Delivery O2 Flow Rate FiO2 07/15/17 04:00 96.9 111 15 120/64 (82) 94 07/15/17 01:38 2.00 07/15/17 00:47 20 07/15/17 00:00 96.7 112 15 121/69 (86) 97 07/14/17 20:13 95 Nasal Cannula 2.00 07/14/17 20:00 97.0 111 15 126/68 (87) 100 07/14/17 16:00 96.8 95 19 143/83 (103) 98 07/14/17 12:07 94 Nasal Cannula 2.00 07/14/17 12:00 95.7 103 17 113/74 (87) 96 I/O 07/14/17 07/14/17 07/14/17 07/15/17 07/15/17 07/15/17 07:00 15:00 23:00 07:00 15:00 23:00 Intake Total 1960 ml 1100 ml 1175 ml 0 ml Balance 1960 ml 1100 ml 1175 ml 0 ml Intake Oral 760 ml 1075 ml 0 ml IV Total 1200 ml 1100 ml 100 ml # Voids 4 3 0 # Bowel Movements 1 5 0 Physical Exam HEAD: Normocephalic. EYES: No scleral icterus. No injection or drainage. NECK: Supple, trachea midline. No JVD or lymphadenopathy. CARDIOVASCULAR: Regular rate and rhythm without murmurs, gallops, or rubs. RESPIRATORY: Breath sounds equal bilaterally. No accessory muscle use. GASTROINTESTINAL: Abdomen soft, non-tender, nondistended. MUSCULOSKELETAL: No cyanosis, or edema. BACK: Nontender without obvious deformity. No CVA tenderness. Assessment and Plan Assessment and Plan Endocarditis - + tricuspid valve endocarditis. Severe tricuspid regurgitation. Small PFO with right to left shunt (potential source for systemic emboli). Not candidate for PFO device closure given active infection. Continue antibiotics call with questions will sign off Adrian Coker MD Jul 15, 2017 10:07
[2017-07-15] MEDS ORDERED: MISCELLANEOUS NURSING INFORMATION XX PRN (10:15)
[2017-07-15] MEDS: BENZONATATE 100 MG CAP PO PRN ×2 (11:29→20:03)
[2017-07-15 12:03] LABS: AUTOMATED NEUTROPHIL # 12.5 TH/MM3 (1.8-7.7); BASOPHIL % 0.2 % (0.0-2.0); EOSINOPHIL % 0.2 % (0.0-4.0); HEMATOCRIT 21.8 % (35.0-46.0); HEMOGLOBIN 7.2 GM/DL (11.6-15.3); LYMPH % 5.9 % (9.0-44.0); LYMPHOCYTE # 0.8 TH/MM3 (1.0-4.8); MEAN CELL VOLUME 86.9 FL (80.0-100.0); MEAN CORPUSCULAR HEMOGLOBIN 28.5 PG (27.0-34.0); MEAN CORPUSCULAR HGB CONC 32.9 % (32.0-36.0); MEAN PLATELET VOLUME 6.7 FL (7.0-11.0); MONO % 4.7 % (0.0-8.0); MONOCYTE # 0.7 TH/MM3 (0-0.9); PLATELET COUNT 127 TH/MM3 (150-450); RED BLOOD COUNT 2.51 MIL/MM3 (4.00-5.30)
--- NOTE | 2017-07-15 12:08 | HHI.NPPN ---
Subjective History of Present Illness 26-year-old female with history of endocarditis and IV drug use and anxiety. Presented here today from the [facility] clinic due to worsening generalized body aches, fatigue, cough, painful fingers and toes. Symptoms started about 1 week ago and have progressively worsened. Patient reports that she was previously clean rom IV drug use for 3 years but had relapse about 1 week ago. Used IV heroin. Nephrology is consulted for acute kidney injury with creatinine of 3.97 and GFR of 14 ml/min. Additional Remarks Patient is alert with mild SOB. (Tasia Arvizu) Review of Systems General Constitutional: Fatigue (Tasia Arvizu) Respiratory Lungs: SOB (Tasia Arvizu) Cardiovascular Cardiac: Edema, FAULKNER (Tasia Arvizu) Objective Data Data Vital Signs Date Time Temp Pulse Resp B/P (MAP) Pulse Ox O2 Delivery O2 Flow Rate FiO2 07/15/17 04:00 96.9 111 15 120/64 (82) 94 07/15/17 01:38 2.00 07/15/17 00:47 20 07/15/17 00:00 96.7 112 15 121/69 (86) 97 07/14/17 20:13 95 Nasal Cannula 2.00 07/14/17 20:00 97.0 111 15 126/68 (87) 100 07/14/17 16:00 96.8 95 19 143/83 (103) 98 07/14/17 12:07 94 Nasal Cannula 2.00 (Tasia Arvizu) -: 07/15/17 1131 07/14/17 0859 Microbiology 07/15/17 Aerobic Blood Culture, Received Pending 07/15/17 Anaerobic Blood Culture, Received Pending (Tasia Arvizu) Physical Exam General Appearance: No Acute Distress, Comfortable (Tasia Arvizu) Eyes Eye Exam: Pupils Equal (Tasia Arvizu) Throat Throat Exam: Oral Mucosa Kelford & Moist (Tasia Arvizu) Neck Neck Exam: Neck Supple (Tasia Arvizu) Pulmonary Resp Exam: Breath Sounds Equal, No Distress, Decreased Bases (Tasia Arvizu) Cardiology CV Exam: Regular, Normal Sinus Rhythm (Tasia Arvizu) Gastrointestinal/Abdomen GI Exam: Soft, Non-Tender, Bowel Sounds Present (Tasia Arvizu) Extremeties Extremities Exam: Trace Edema (Tasia Arvizu) Neurologic Neuro Exam: Alert, Awake (Tasia Arvizu) Psychiatric Psych Exam: Appropriate Responses (Tasia Arvizu) Assessment/Plan Problem List: (1) ENRICO (acute kidney injury) ICD Codes: N17.9 - Acute kidney failure, unspecified Plan: Renal US. No acute findings. Mildly increased renal echogenicity characteristic of medical renal disease. ENRICO most likely pre renal Creatinine improved to 1.2 today Baseline in 01/13 was creatinine of less than 1 Plan Renal function improving labs pending today. Avoid nephrotoxins Serology pending, C3 low, and C4 normal. Continue antibiotics and follow the urine out put and BMP. 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 Improved now (4) Thrombocytopenia ICD Codes: D69.6 - Thrombocytopenia, unspecified Plan: improved (5) Anemia ICD Codes: D64.9 - Anemia, unspecified (6) Endocarditis ICD Codes: I38 - Endocarditis, valve unspecified Status: Acute (Tasia Arvizu) Problem List: (1) ENRICO (acute kidney injury) ICD Codes: N17.9 - Acute kidney failure, unspecified Plan: Renal US. No acute findings. Mildly increased renal echogenicity characteristic of medical renal disease. ENRICO most likely pre renal Creatinine improved to 1.2 today Baseline in 01/13 was creatinine of less than 1 Plan Renal function improving labs pending today. Avoid nephrotoxins Serology pending, C3 low, and C4 normal. Continue antibiotics and follow the urine out put and BMP. Patient seen and examined, agree with above. Continue antibiotics. 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 Improved now (4) Thrombocytopenia ICD Codes: D69.6 - Thrombocytopenia, unspecified Plan: improved (5) Anemia ICD Codes: D64.9 - Anemia, unspecified (6) Endocarditis ICD Codes: I38 - Endocarditis, valve unspecified Status: Acute (Janak Alonso MD) Problem Qualifiers (1) Endocarditis: Qualified Codes: I33.0 - Acute and subacute infective endocarditis Tasia Arvizu Jul 15, 2017 12:08 Janak Alonso MD Jul 15, 2017 19:09
[2017-07-15 12:21] LABS: ALBUMIN 1.3 GM/DL (3.4-5.0); ALT (GPT) 21 U/L (10-53); AST (GOT) 28 U/L (15-37); BICARBONATE 19.8 MEQ/L (21.0-32.0); BLOOD UREA NITROGEN 22 MG/DL (7-18); CALCIUM 7.7 MG/DL (8.5-10.1); CHLORIDE 104 MEQ/L (98-107); CREATININE 1.21 MG/DL (0.50-1.00); GLOMERULAR FILTRATION RATE 53 ML/MIN (>89); GLUCOSE,RANDOM 129 MG/DL (74-106); SODIUM (NA) 134 MEQ/L (136-145)
[2017-07-15 12:23] LABS: ALKALINE PHOSPHATASE 187 U/L (45-117); TOTAL BILIRUBIN ADULT 2.1 MG/DL (0.2-1.0); TOTAL PROTEIN 6.3 GM/DL (6.4-8.2)
--- NOTE | 2017-07-15 12:43 | ECHRPT ---
Indication: POSS SEPSIS, ENDOCARDITIS CONCLUSIONS Wall thickness is normal. The left ventricular systolic function is hyperdynamic with an estimated ejection fraction in the ra nge of 65- 70%. No regional wall motion abnormalities are present. The right atrial size is pkyh-oh-zyfqxjkqpu dilated. Mild thickening of the tricuspid valve leaflets. There is severe tricuspid regurgitation. The estima cristina pulmonary arterial pressure is 61.6 mmHg. There is estimated ggzvmoql-ed-dtzezd pulmonary hypertensi on present (range 60-70 mmHg). Highly mobile vegetation (1.67 x 0.51 cm) seen on the tricuspid valve. BP: 120 / 71 HR: Rhythm: MEASUREMENTS (Male / Female) Normal Values Technical Quality: DOPPLER TR Peak Velocity 359.0 cm/s Pulmonary Artery Systolic 61.6 mmHg TR Peak Gradient 51.6 mmHg Right Ventricular Systoli 61.6 mmHg Right Atrial Pressure 10.0 mmHg Medications Complications Proc. Components The patient was brought to the diagnostic imaging area in a fasting state after o btaining an informed consent. The patient was premedicated with IV Versed and IV Fentanyl. The construction management assistant ior pharynx was sprayed with Cetacaine spray and the patient was administered viscous Xylocaine 2 %. The KALIN probe was passed into the posterior pharynx , mid-esophagus, distal esophagus, and gastric fundus. KALIN was performed at multiple levels. The patient tolerated the procedure well and there were no complications. The patient was transferred to the floor in satisfactory condition.. FINDINGS LEFT VENTRICLE Wall thickness is normal. The left ventricular systolic function is hyperdynamic with an estimated ejection fraction in the ra nge of 65- 70%. No regional wall motion abnormalities are present. RIGHT VENTRICLE The right ventricle is mildly dilated. LEFT ATRIUM The left atrial size is normal. RIGHT ATRIUM The right atrial size is nkhl-tb-mbryanqizq dilated. ATRIAL APPENDAGES Normal left atrial appendage size with no evidence of thrombus formation. ATRIAL SEPTUM Normal atrial septal thickness. A patent foramen ovale is present with a huyog-oh-fwak shunt demonstrated by color flow Doppler interrogation. Right to left atrial level shunt is observed with agitated saline contrast administration. AORTA The aortic root and proximal ascending aorta are normal in size on limited imaging. MITRAL VALVE Structurally normal mitral valve. No mitral valve stenosis or regurgitation. AORTIC VALVE Trileaflet aortic valve. No aortic valve stenosis or regurgitation. TRICUSPID VALVE Mild thickening of the tricuspid valve leaflets. There is severe tricuspid regurgitation. The estima cristina pulmonary arterial pressure is 61.6 mmHg. There is estimated fknuyhiq-ve-wqopsi pulmonary hypertensi on present (range 60-70 mmHg). Highly mobile vegetation seen on the tricuspid valve. VESSELS The inferior vena cava is normal in size. PULMONARY VALVE No pulmonary valve regurgitation or stenosis. PERICADIUM No pericardial effusion. Adrian Coker MD, FACC (Electronically Signed) Final Date:15 July 2017 12:41
--- NOTE | 2017-07-15 13:52 | HHI.FPPN ---
Subjective Remarks Patient is afebrile overnight. Means tachycardic, however this has been stable throughout hospitalization. Satting 94-95% on nasal cannula oxygen 2 L. Patient states that she has significant pain in her right hip, continues to endorse discomfort and pain. No problems with eating or drinking. (Rosamaria Sanford MD R1) Objective Vitals Vital Signs Date Time Temp Pulse Resp B/P (MAP) Pulse Ox O2 Delivery O2 Flow Rate FiO2 07/15/17 12:19 95 Nasal Cannula 2.00 07/15/17 12:00 97.9 113 20 136/57 (83) 96 07/15/17 08:00 98.4 115 20 121/73 (89) 94 07/15/17 04:00 96.9 111 15 120/64 (82) 94 07/15/17 01:38 2.00 07/15/17 00:47 20 07/15/17 00:00 96.7 112 15 121/69 (86) 97 07/14/17 20:13 95 Nasal Cannula 2.00 07/14/17 20:00 97.0 111 15 126/68 (87) 100 07/14/17 16:00 96.8 95 19 143/83 (103) 98 I/O 07/14/17 07/14/17 07/14/17 07/15/17 07/15/17 07/15/17 07:00 15:00 23:00 07:00 15:00 23:00 Intake Total 1960 ml 1100 ml 1175 ml 0 ml Balance 1960 ml 1100 ml 1175 ml 0 ml Intake Oral 760 ml 1075 ml 0 ml IV Total 1200 ml 1100 ml 100 ml # Voids 4 3 0 # Bowel Movements 1 5 0 (Rosamaria Sanford MD R1) Result Diagram: 07/15/17 1131 07/15/17 1131 Objective Remarks GENERAL: This is an acutely ill appearing female pt. appears slightly more edematous compared to yesterday. SKIN: Healing sites of multiple track alvarez noted on upper and lower extremity. On the medial aspect of the left lower leg there is a 2x3 cm healing lesion. No bleeding present. Multiple splinter hemorrhages on bilateral fingers and toes and surrounding ecchymosis. Small hematoma covering the tip of the left thumb with overlying superficial skin desquamation. On the right toe #1, similar small hematoma. EYES: Extraocular motions intact. ENT: Moist mucous membranes. Throat without erythema, tonsillar hypertrophy or exudate. NECK: No JVD or lymphadenopathy. CARDIOVASCULAR: Tachycardic rate with normal rhythm. Grade 2/6 systolic murmur heard best in the left lower sternal border. No carotid bruits. RESPIRATORY: Clear lung sounds. No accessory muscle use. NC in place. GASTROINTESTINAL: Abdomen nondistended. MUSCULOSKELETAL: No edema. Minimal swelling of the lower extremities noted. Unable to actively raise her right leg. Tenderness to internal rotation with right leg log roll test.No tenderness to palpation of the spine. Diffuse lower back pain associated w/paravertebral muscles of L4-5 region, patient states this is chronic. NEUROLOGICAL: Awake and alert. Motor and sensory grossly within normal limits. Normal speech. (Rosamaria Sanford MD R1) A/P Assessment and Plan Patient is a 26 yo female with PMH significant for endocarditis, septic pulmonary emboli, and IV drug use admitted for endocarditis. Echo shows tricuspid regurgitation (secondary to valve vegetation) and pulmonary hypertension. Ejection fraction greater than 55%. Patient was also found to have prerenal AKA, cavitary pneumonia, hyponatremia and hypokalemia, and lower leg extremity ulceration. ID, Cardio, and and nephro were consulted. Day #3 oxacillin, day 4 zosyn. Cx from 07/10 MSSA positive, Cx from 07/12 + for gram + cocci. IV fluids were started, patient also given clonazepam and DuoNeb treatments. Will order cultures again today. We'll decrease fluids today since patient appears more edematous compared to yesterday's exam. Plan to continue ordering cultures until negative, after that 6 weeks of treatment on antibiotic therapy will start. KALIN was performed on 07/15 to examine for vegetation on other valve leaflets indices besides tricuspid valve). Report only confirms severe tricuspid regurgitation with mobile vegetation on the tricuspid valve leaflets and moderate to severe pulmonary hypertension. Ejection fraction 65-70% . Patient complained of continued and moderate to severe pain today, pain medications were adjusted to replace norco w/oxycodone PRN. Discharge Planning Patient is acutely ill and will require weeks of treatment in the hospital. (Rosamaria Sanford MD R1) Attending Attestation Patient seen and examined. Case reviewed and discussed with the resident team. Agree with plan of care as discussed with me and documented in the resident note. (Tessie Siegel MD) Problem List: (1) Hip pain, right ICD Codes: M25.551 - Pain in right hip Plan: Significant pain with any movement of the right hip joint Patient unable to perform active leg raise due to significant pain, positive leg roll test Because of history, it is necessary to rule out septic arthritis Order MRI of the right hip (2) Endocarditis ICD Codes: I38 - Endocarditis, valve unspecified Status: Acute Plan: Patient with 2 prior episodes of endocarditis 11/2016 and 12/2016. Current symptoms started after relapse with IV heroin. Significant murmur, splinter hemorrhages of fingers and toes on physical exam. HIV, hepatitis panel negative Leukocytosis trending down to 15.9 today Sputum culture pending 07/10 urine culture No growth in 24 hours 07/11 Wound culture ordered of left lower extremity pending 07/11 Echo shows vegetation on the tricuspid valve, pulmonary valve regurg 07/10 Blood cultures staph aureus x 4 ID consulted, appreciate assistance * Oxacillin 2g IV Q4H (started 07/12) * s/p Zosyn 2.25g IV * s/p Zyvox (07/11) Plan: Antibiotics as above Follow up blood cx from 07/14 KALIN today Imaging: * CTA: No PE. Widespread patchy cavitary pneumonia both lungs and probable on the basis of septic emboli. Nonspecific hepatosplenomegaly. Probable tricuspid regurgitation. * CXR: Patchy cavitary pneumonia, fairly stable on the right but substantially worse on the left * Lower extremity ultrasound: Negative for venous thrombosis * KALIN 07/15 confirms right-sided endocarditis with severe tricuspid regurgitation (w/mobile vegetation on tricuspid valve), moderate to severe pulmonary hypertension, and no other valvular vegetation.A patent foramen ovale is present with a oxweb-dw-jtit shunt demonstrated by color flow Doppler interrogation. (3) Anemia ICD Codes: D64.9 - Anemia, unspecified Plan: Baseline hemoglobin appears to lie at 13.1 based on previous documentation CBC on admission shows hemoglobin of 10.5, this has been downtrending Today, hemoglobin is 7.2 from 8.2 yesterday Concern for possible active bleeding H&H ordered for later this afternoon If hemoglobin is the same or worsened, do hemooccult and evaluate for other sources of bleeding. Can consider GI consult (4) Acute renal failure ICD Codes: N17.9 - Acute kidney failure, unspecified Status: Acute Plan: BUN 106, Creatinine on admission was 4.56 with baseline being <1. Likely prerenal. Trending downward -Closely monitor electrolyte disturbances -Closely monitor fluid resuscitation -Cardiac telemetry until electrolyte disturbances resolve -consult Nephrology appreciate recommendations (5) Sepsis ICD Codes: A41.9 - Sepsis, unspecified organism Status: Acute Plan: Continues to meet sepsis criteria based on tachycardia, leukocytosis, and positive blood cultures/endocarditis. See above plan for endocarditis (6) Cavitary pneumonia ICD Codes: J18.9 - Pneumonia, unspecified organism; J98.4 - Other disorders of lung Status: Acute Plan: Found on CTA. See more detailed plan under endocarditis (7) IVDU (intravenous drug user) ICD Codes: F19.90 - Other psychoactive substance use, unspecified, uncomplicated Status: Acute Plan: History of IV drug use. Most recent relapse 1 week prior to admission. Patient reports she had been clean for the last 3 years. will offer help and rehab especially when she leaves the hospital Order clonidine 0.1 mg every 6 hours when necessary for agitation (8) Hyponatremia ICD Codes: E87.1 - Hypo-osmolality and hyponatremia; J98.4 - Other disorders of lung Status: Acute Plan: Significant hyponatremia on admission with significantly elevated ratio of BUN/creatinine. Likely related to dehydration from sepsis/endocarditis. Lactic acid unremarkable. -Trending up, continue to monitor and provide IVF (9) Nutrition, metabolism, and development symptoms ICD Codes: R63.8 - Other symptoms and signs concerning food and fluid intake Plan: Diet: Regular Electrolytes: see above Fluids: Maintenance with NS @ 90ml/hr DVT PPX: SCDs, chemical anticoagulation contraindicated in the setting of endocarditis. (Rosamaria Sanford MD R1) Problem Qualifiers (1) Endocarditis: Qualified Codes: I33.0 - Acute and subacute infective endocarditis (2) Acute renal failure: Qualified Codes: N17.9 - Acute kidney failure, unspecified (3) Sepsis: Qualified Codes: A41.9 - Sepsis, unspecified organism Rosamaria Sanford MD R1 Jul 15, 2017 13:52 Tessie Siegel MD Jul 16, 2017 08:31
--- NOTE | 2017-07-15 14:28 | HHI.IDPN ---
Subjective Subjective Remarks cont to experince SOB especially with any physical activity (e.i. talking) On O2 1 L + cough all clx are + for MSSA co edema 2 D echo with TV vegetaion 1.6 cm and PFO Antibiotics oxacillin Allergies: Coded Allergies: vancomycin (Verified Allergy, Intermediate, Rash, 07/10/17) Objective . Vital Signs Date Time Temp Pulse Resp B/P (MAP) Pulse Ox O2 Delivery O2 Flow Rate FiO2 07/15/17 12:19 95 Nasal Cannula 2.00 07/15/17 12:00 97.9 113 20 136/57 (83) 96 07/15/17 08:00 98.4 115 20 121/73 (89) 94 07/15/17 04:00 96.9 111 15 120/64 (82) 94 07/15/17 01:38 2.00 07/15/17 00:47 20 07/15/17 00:00 96.7 112 15 121/69 (86) 97 07/14/17 20:13 95 Nasal Cannula 2.00 07/14/17 20:00 97.0 111 15 126/68 (87) 100 07/14/17 16:00 96.8 95 19 143/83 (103) 98 . Laboratory Tests Test 07/14/17 08:59 07/15/17 11:31 White Blood Count 14.7 TH/MM3 14.0 TH/MM3 Red Blood Count 2.89 MIL/MM3 2.51 MIL/MM3 Hemoglobin 8.2 GM/DL 7.2 GM/DL Hematocrit 24.4 % 21.8 % Mean Corpuscular Volume 84.3 FL 86.9 FL Mean Corpuscular Hemoglobin 28.5 PG 28.5 PG Mean Corpuscular Hemoglobin Concent 33.8 % 32.9 % Red Cell Distribution Width 16.4 % 17.0 % Platelet Count 146 TH/MM3 127 TH/MM3 Mean Platelet Volume 6.7 FL 6.7 FL Neutrophils (%) (Auto) 84.7 % 89.0 % Lymphocytes (%) (Auto) 9.4 % 5.9 % Monocytes (%) (Auto) 5.6 % 4.7 % Eosinophils (%) (Auto) 0.1 % 0.2 % Basophils (%) (Auto) 0.2 % 0.2 % Neutrophils # (Auto) 12.4 TH/MM3 12.5 TH/MM3 Lymphocytes # (Auto) 1.4 TH/MM3 0.8 TH/MM3 Monocytes # (Auto) 0.8 TH/MM3 0.7 TH/MM3 Eosinophils # (Auto) 0.0 TH/MM3 0.0 TH/MM3 Basophils # (Auto) 0.0 TH/MM3 0.0 TH/MM3 CBC Comment DIFF FINAL DIFF FINAL Differential Comment Erythrocyte Sedimentation Rate GREATER THAN 140 mm/hr Laboratory Tests Test 07/14/17 08:59 07/15/17 11:31 Blood Urea Nitrogen 29 MG/DL 22 MG/DL Creatinine 1.15 MG/DL 1.21 MG/DL Random Glucose 95 MG/DL 129 MG/DL Total Protein 6.6 GM/DL 6.3 GM/DL Albumin 1.5 GM/DL 1.3 GM/DL Calcium Level 8.1 MG/DL 7.7 MG/DL Phosphorus Level 4.2 MG/DL Magnesium Level 1.7 MG/DL Alkaline Phosphatase 218 U/L 187 U/L Aspartate Amino Transf (AST/SGOT) 33 U/L 28 U/L Alanine Aminotransferase (ALT/SGPT) 24 U/L 21 U/L Total Bilirubin 2.4 MG/DL 2.1 MG/DL Sodium Level 133 MEQ/L 134 MEQ/L Potassium Level 3.3 MEQ/L 4.1 MEQ/L Chloride Level 102 MEQ/L 104 MEQ/L Carbon Dioxide Level 20.2 MEQ/L 19.8 MEQ/L Anion Gap 11 MEQ/L 10 MEQ/L Estimat Glomerular Filtration Rate 57 ML/MIN 53 ML/MIN C-Reactive Protein 10.00 MG/DL Microbiology Date/Time Source Procedure Growth Status 07/15/17 05:35 Blood Peripheral Aerobic Blood Culture Pending Received 07/15/17 05:35 Blood Peripheral Anaerobic Blood Culture Pending Received 07/14/17 08:57 Blood Peripheral Aerobic Blood Culture - Preliminary NO GROWTH IN 1 DAY Resulted 07/14/17 08:57 Blood Peripheral Anaerobic Blood Culture - Preliminary NO GROWTH IN 1 DAY Resulted 07/12/17 18:32 Sputum Expectorated Sputum Gram Stain - Final Complete 07/12/17 18:32 Sputum Culture - Final Staphylococcus Aureus Complete Imaging Last Impressions Lower Extremity Ultrasound 07/14/17 0000 Signed Impressions: Service Date/Time: Friday, July 14, 2017 11:50 - CONCLUSION: Normal examination. Dang Bahena MD Hip and Pelvis X-Ray 07/14/17 0000 Signed Impressions: Service Date/Time: Friday, July 14, 2017 14:51 - CONCLUSION: Unremarkable examination of the right hip. Dang Bahena MD Renal Ultrasound 07/11/17 0000 Signed Impressions: Service Date/Time: June 09:00 - CONCLUSION: 1. No acute findings. Mildly increased renal echogenicity characteristic of medical renal disease. Sebastien Moore MD Chest X-Ray 07/10/176 Signed Impressions: Service Date/Time: Monday, July 10, 2017 18:53 - CONCLUSION: Patchy cavitary pneumonia, fairly stable on the right but substantially worse on the left. An up to date CT is scheduled. Chuy Yang MD CT Angiography 07/10/17 0000 Signed Impressions: Service Date/Time: Monday, July 10, 2017 19:34 - CONCLUSION: 1. No pulmonary embolus. 2. Widespread patchy cavitary pneumonia of both lungs and probably on the basis of septic emboli. 3. Nonspecific hepatosplenomegaly. 4. Probable tricuspid regurgitation. Chuy Yang MD Physical Exam CONSTITUTIONAL/GENERAL: This is an adequately nourished patient, appears less sick, toxic, though still looks quite acutely ill In no resp distress; occasional dry cough TUBES/LINES/DRAINS: SKIN: No jaundice, rashes, or lesions. Ecchymoses on upper extremities. No wounds seen anteriorly. Skin temperature appropriate. Not diaphoretic. On exam: SKIN with needle alvarez and multiple embolic lesions involving fingers, toes soles L thumb and L hallux evolving large embolic lesions L thumb tip - necrotic EYES: Pupils equal and round and reactive. Extraocular motions intact. No scleral icterus. No injection or drainage. Fundi not examined. CARDIOVASCULAR: Regular tachycardia without murmurs, gallops, or rubs. No JVD. Peripheral pulses symmetric. RESPIRATORY/CHEST: Symmetric, unlabored respirations. Clear to auscultation. Breath sounds equal bilaterally. No wheezes, rales, or rhonchi. GASTROINTESTINAL: Abdomen soft, non-tender, nondistended. No hepato-splenomegaly , or palpable masses. No guarding. Bowel sounds present. MUSCULOSKELETAL: Extremities without clubbing, cyanosis, + 2-3 BLE edema. No joint tenderness or effusion noted. No calf tenderness. No mottling or clubbing. LYMPHATICS: No palpable cervical or supraclavicular adenopathy.lear speech NEUROLOGICAL: Awake and alert. Motor and sensory grossly within normal limits. Follows commands. Clear speech. Moves all extremities. PSYCHIATRIC: No obvious anxiety/depression. no apparent hallucinations or other psychotic thought process. L Assessment & Plan Remarks TV endocarditis with PFO , MSSA - PFO will explain systemic emboli in this pt Red man sd to vancomycin Plan: cont Oxacillin fu serial blood clx utill final monitor for systemic emboli Pt though has T endocarditis is expected to have possibly complications of L sided endocarditis 2/2 PFO incluiding septic emboli to brain Discussed Condition With Dr Siegel, residents Shana Mosley MD Jul 15, 2017 14:28
[2017-07-15] MEDS ORDERED: GADODIAMIDE PF 287 MG/ML 5 ML VIAL (for RAD MRI) IVCONTRAST ONE (18:10)
--- NOTE | 2017-07-15 18:50 | RADRPT ---
EXAM DATE/TIME: 07/15/2017 17:29 [facility] COMPARISON: No previous studies available for comparison. INDICATIONS : Osteomyelitis. Right hip pain. CONTRAST: 15 cc Omniscan (gadodiamide) IV MEDICAL HISTORY : Endocarditis, Sepsis ARF. SURGICAL HISTORY : None. ENCOUNTER: Initial ACUITY: 1 week PAIN SCORE: 10/10 LOCATION: Right hip joint. TECHNIQUE: Multiplanar, multisequence MRI examination was performed without contrast and after the intravenous a dministration of gadolinium. FINDINGS: No marrow signal abnormality is seen in the proximal femora to suggest osteomyelitis. There is a 5.1 x 1.9 cm enhancing loculated fluid collection in the proximal left thigh just lateral to the femoral head probably representing a small muscular abscess. There is a small to moderate size right hip joint effusion. There is extensive edema in the soft tiss ues around the right hip which also extends in the subcutaneous tissues and around the left hip as we ll. CONCLUSION: 1. No evidence for osteomyelitis. 2. Small to moderate-sized right hip joint effusion which does not enhance significantly post contras t. 3. 5.1 x 1.9 cm presumed small muscular abscess in the proximal left thigh adjacent to the left femor al head. 4. Extensive subcutaneous and deep tissue edema bilaterally in the pelvis, probably related to anasar ca. Sebastien Moore MD on July 15, 2017 at 18:42 Board Certified Radiologist. This report was verified electronically.
[2017-07-15] MEDS: ONDANSETRON HCL 4 MG/2 ML VIAL IV PUSH PRN (20:04)
[2017-07-16] VITALS (13 sets, daily range): BP systolic 105–138; BP diastolic 60–74; PULSE 102–126; RESP 18–28; TEMP 96.8–99.9; O2SAT 92–100
[2017-07-16] MEDS: RESP: IPRATROPIUM 0.5 MG/2.5 ML NEB NEB SCH ×6 (00:02→23:57)
[2017-07-16] MEDS: OXACILLIN INJ 2 GM in SODIUM CHLORIDE 0.9% INJ 100 ML IV SCH ×6 (03:42→22:21)
[2017-07-16] MEDS: BENZONATATE 100 MG CAP PO PRN ×2 (03:50→17:44)
[2017-07-16] MEDS: ONDANSETRON HCL 4 MG/2 ML VIAL IV PUSH PRN ×2 (03:51→22:22)
[2017-07-16 06:13] LABS: MEAN CELL VOLUME 87.1 FL (80.0-100.0); MEAN CORPUSCULAR HEMOGLOBIN 29.1 PG (27.0-34.0); MEAN CORPUSCULAR HGB CONC 33.4 % (32.0-36.0); MEAN PLATELET VOLUME 6.9 FL (7.0-11.0); PLATELET COUNT 136 TH/MM3 (150-450); RED BLOOD COUNT 2.32 MIL/MM3 (4.00-5.30); RED CELL DISTRIBUTION WIDTH 16.8 % (11.6-17.2); WHITE BLOOD COUNT 11.9 TH/MM3 (4.0-11.0)
[2017-07-16 06:25] LABS: HEMATOCRIT 20.2 % (35.0-46.0); HEMOGLOBIN 6.8 GM/DL (11.6-15.3)
[2017-07-16 06:32] LABS: ALBUMIN 1.4 GM/DL (3.4-5.0); AST (GOT) 24 U/L (15-37); BICARBONATE 19.4 MEQ/L (21.0-32.0); BLOOD UREA NITROGEN 22 MG/DL (7-18); CALCIUM 8.1 MG/DL (8.5-10.1); CHLORIDE 103 MEQ/L (98-107); GLOMERULAR FILTRATION RATE 54 ML/MIN (>89); GLUCOSE,RANDOM 85 MG/DL (74-106); SODIUM (NA) 132 MEQ/L (136-145)
[2017-07-16 06:33] LABS: ALT (GPT) 20 U/L (10-53)
[2017-07-16 06:36] LABS: ALKALINE PHOSPHATASE 189 U/L (45-117); TOTAL BILIRUBIN ADULT 1.5 MG/DL (0.2-1.0); TOTAL PROTEIN 6.7 GM/DL (6.4-8.2)
[2017-07-16] MEDS: MUPIROCIN 2% OINT 22 GM TUBE TOPICAL SCH ×3 (06:49→20:32)
[2017-07-16] MEDS ORDERED: SODIUM CHLOR 0.9% 250 ML INJ 250 ML IV ONE (07:15)
[2017-07-16] MEDS ORDERED: FUROSEMIDE 20 MG/2 ML VIAL IV PUSH ONE ×2 (07:30→19:00)
[2017-07-16] MEDS ORDERED: ACETAMINOPHEN 325 MG TAB PO PRN (07:30)
[2017-07-16] MEDS: clonazePAM 1 MG TAB PO SCH ×2 (08:03→20:32)
[2017-07-16] MEDS: CALCIUM CARBONATE 1.25 GM (CA 500 MG) TAB PO SCH (08:04)
[2017-07-16] MEDS: SODIUM CHLORIDE 0.9% FLUSH 10 ML FLUSH IV FLUSH SCH ×2 (08:04→20:32)
[2017-07-16] MEDS ORDERED: FUROSEMIDE 40 MG/4 ML VIAL IV PUSH ONE (09:45)
[2017-07-16 10:50] LABS: INTERNATIONAL NORMALIZED RATIO 1.2 RATIO; PROTHROMBIN TIME - PATIENT 12.5 SEC (9.8-11.6)
--- NOTE | 2017-07-16 11:02 | HHI.FPPN ---
Subjective Remarks With continued tachycardia up to 124 overnight. She continues to saturate 96% on 2 L nasal cannula. Blood pressures are stable. Temperature low at 96.8 overnight. She is having more difficulty staying awake during conversation which is an acute change. She continues to have back pain and hip pain. She is not feeling any more short of breath today than yesterday. She does note significantly more swelling in her extremities. Intake 2491 mL, output 1100 mL , balance 1391 mL. (Yi Harvey MD, R3) Objective Vitals Vital Signs Date Time Temp Pulse Resp B/P (MAP) Pulse Ox O2 Delivery O2 Flow Rate FiO2 07/16/17 08:19 Nasal Cannula 3.00 07/16/17 07:58 96 Nasal Cannula 2.00 07/16/17 00:00 96.8 124 20 136/69 (91) 94 07/15/17 21:15 Nasal Cannula 2.00 07/15/17 20:00 98.2 113 20 115/69 (84) 98 07/15/17 20:00 Nasal Cannula 2.00 07/15/17 16:00 98.9 103 18 110/62 (78) 94 07/15/17 15:27 18 07/15/17 12:19 95 Nasal Cannula 2.00 07/15/17 12:00 97.9 113 20 136/57 (83) 96 I/O 07/15/17 07/15/17 07/15/17 07/16/17 07/16/17 07/16/17 07:00 15:00 23:00 07:00 15:00 23:00 Intake Total 0 ml 840 ml 1651 ml Output Total 700 ml 400 ml Balance 0 ml 140 ml 1251 ml Intake Oral 0 ml 840 ml IV Total 1651 ml Output Urine Total 700 ml 400 ml # Voids 0 # Bowel Movements 0 1 (Yi Harvey MD, R3) Result Diagram: 07/16/17 0528 07/16/17 0528 Imaging Last Impressions Hip MRI 07/15/17 0000 Signed Impressions: Service Date/Time: Saturday, July 15, 2017 17:29 - CONCLUSION: 1. No evidence for osteomyelitis. 2. Small to moderate-sized right hip joint effusion which does not enhance significantly post contrast. 3. 5.1 x 1.9 cm presumed small muscular abscess in the proximal left thigh adjacent to the left femoral head. 4. Extensive subcutaneous and deep tissue edema bilaterally in the pelvis, probably related to anasarca. Sebastien Moore MD Lower Extremity Ultrasound 07/14/17 0000 Signed Impressions: Service Date/Time: Friday, July 14, 2017 11:50 - CONCLUSION: Normal examination. Dang Bahena MD Hip and Pelvis X-Ray 07/14/17 0000 Signed Impressions: Service Date/Time: Friday, July 14, 2017 14:51 - CONCLUSION: Unremarkable examination of the right hip. Dang Bahena MD Renal Ultrasound 07/11/17 0000 Signed Impressions: Service Date/Time: June 09:00 - CONCLUSION: 1. No acute findings. Mildly increased renal echogenicity characteristic of medical renal disease. Sebastien Moore MD Chest X-Ray 07/10/171815 Signed Impressions: Service Date/Time: Monday, July 10, 2017 18:53 - CONCLUSION: Patchy cavitary pneumonia, fairly stable on the right but substantially worse on the left. An up to date CT is scheduled. Chuy Yang MD CT Angiography 07/10/17 0000 Signed Impressions: Service Date/Time: Monday, July 10, 2017 19:34 - CONCLUSION: 1. No pulmonary embolus. 2. Widespread patchy cavitary pneumonia of both lungs and probably on the basis of septic emboli. 3. Nonspecific hepatosplenomegaly. 4. Probable tricuspid regurgitation. Chuy Yang MD Objective Remarks GENERAL: This is an acutely ill appearing female pt.. Generally more edematous compared to yesterday. SKIN: Healing sites of multiple track alvarez noted on upper and lower extremity. On the medial aspect of the left lower leg there is a 1x1 cm healing lesion. No bleeding present. Multiple splinter hemorrhages on bilateral fingers and toes and surrounding ecchymosis. Small hematoma covering the tip of the left thumb with overlying superficial skin desquamation. On the right toe #1, similar small blister hemorrhage. Posterior upper extremities and bilateral lower extremities with new ecchymosis. EYES: Extraocular motions intact. ENT: Moist mucous membranes. NECK: No JVD or lymphadenopathy. CARDIOVASCULAR: Tachycardic rate with normal rhythm. Grade 2/6 systolic murmur heard best in the left lower sternal border. No carotid bruits. RESPIRATORY: Clear lung sounds. No accessory muscle use. NC in place. GASTROINTESTINAL: Abdomen nondistended. MUSCULOSKELETAL: No edema. Moderate swelling of the lower extremities noted. Unable to actively raise her right leg. Tenderness to internal rotation with right leg log roll test.No tenderness to palpation of the spine. Diffuse lower back pain associated w/paravertebral muscles of L4-5 region, patient states this is chronic. NEUROLOGICAL: Drowsy but arousable. Falls asleep during conversation. Normal speech. 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 Acute mental status changes and petechiae noted on exam today. Transferring to critical care for closer monitoring. Discharge Planning Patient is acutely ill and will require weeks of treatment in the hospital. (Yi Harvey MD, R3) Attending Attestation Patient seen and examined. Case reviewed and discussed with the resident team. Agree with plan of care as discussed with me and documented in the resident note. Patient was seen and examined around 2pm. Patient is clinically much worse today with increased pain, increased somnolence. MRI brain showing abscess as well and CXR shows cavitary lesions are worse. Patient was transferred to the ICU and patient was dw Dr. Espino and the staff sonographer will be assuming care. We will continue the follow the patient as well peripherally. Discussed prognosis and critical clinical picture with the patient and her two family members. (Tessie Siegel MD) Problem List: (1) Severe sepsis with acute organ dysfunction due to Staphylococcus species ICD Codes: A41.2 - Sepsis due to unspecified staphylococcus; R65.20 - Severe sepsis without septic shock Status: Acute Plan: Patient with history of endocarditis and septic pulmonary emboli 11/2016 and 12/2016. Current symptoms started after relapse with IV heroin. HIV, hepatitis panel negative Continues to meet severe sepsis secondary to tricuspid endocarditis with septic pulmonary emboli, left thigh muscle abscess, right hip joint effusion Leukocytosis trending down from 14.0 to 11.9 today CRP trending up from 10 to 13 ESR remains elevated >140 07/12 Sputum culture growing harrington sensitive staph aureus 07/10 urine culture growing 50-100,000 CFU/mL mixed gram positive brittni 07/11 Wound culture growing harrington sensitive staph aureus and beta strep Group F 07/11 Echo shows vegetation on the tricuspid valve, pulmonary valve regurg 07/10 Blood cultures staph aureus x 4 07/12 Blood cultures staph aureus and viridans strep x 2 07/14 Blood cultures staph aureus 07/15 Blood cultures pending 07/15 KALIN tricuspid vegetation, severe tricuspid regurg, small PFO with right to left shunt (potential source for systemic emboli) Plan: - Acute mental status changes today- will obtain brain MRI - Continued back pain and concern for possible abscess- will obtain spine MRI - Consult Drilling Superintendent- case discussed with staff sonographer- will transfer patient to ICU for closer monitoring and escalation of care, obtain stat CXR and ABG, and give 40mg IV lasix for fluid overload. - Consult Orthopedic surgeon for hip MRI findings- patient NPO for anticipated procedure - Given new petechia will obtain PT/PTT/INR and fibrinogen - ID consulted, appreciate assistance * Continue Oxacillin 2g IV Q4H (started 07/12) - Follow cultures Imagin/19 Hip MRI small moderate right hip joint effusion and small muscular abscess in the proximal left thigh adjacent to the left femoral head * CTA: No PE. Widespread patchy cavitary pneumonia both lungs and probable on the basis of septic emboli. Nonspecific hepatosplenomegaly. Probable tricuspid regurgitation. * 07/10 CXR: Patchy cavitary pneumonia, fairly stable on the right but substantially worse on the left * Lower extremity ultrasound: Negative for venous thrombosis * KALIN 07/15 confirms right-sided endocarditis with severe tricuspid regurgitation (w/mobile vegetation on tricuspid valve), moderate to severe pulmonary hypertension, and no other valvular vegetation.A patent foramen ovale is present with a [id number] shunt demonstrated by color flow Doppler interrogation. (2) Endocarditis of tricuspid valve ICD Codes: I36.8 - Other nonrheumatic tricuspid valve disorders Status: Acute (3) Altered mental status ICD Codes: R41.82 - Altered mental status, unspecified (4) Anemia ICD Codes: D64.9 - Anemia, unspecified Status: Acute Plan: Hemoglobin continues to trend down to 6.8 today Baseline hemoglobin around 13.1 per chart review - Transfuse 2 units PRBC - Obtain Hemoccult (5) Cavitary pneumonia ICD Codes: J18.9 - Pneumonia, unspecified organism; J98.4 - Other disorders of lung Status: Acute (6) Muscle abscess ICD Codes: M62.89 - Other specified disorders of muscle Status: Acute (7) Acute renal failure ICD Codes: N17.9 - Acute kidney failure, unspecified Status: Acute Plan: BUN 106, Creatinine on admission was 4.56 with baseline being <1. Likely prerenal. Trending downward -Closely monitor electrolyte disturbances -Closely monitor fluid resuscitation -Cardiac telemetry until electrolyte disturbances resolve -consult Nephrology appreciate recommendations (8) IVDU (intravenous drug user) ICD Codes: F19.90 - Other psychoactive substance use, unspecified, uncomplicated Status: Chronic Plan: History of IV drug use. Most recent relapse 1 week prior to admission. Patient reports she had been clean for the last 3 years. will offer help and rehab especially when she leaves the hospital clonidine 0.1 mg every 6 hours when necessary for agitation (9) Nutrition, metabolism, and development symptoms ICD Codes: R63.8 - Other symptoms and signs concerning food and fluid intake Status: Acute Plan: Diet: Regular Electrolytes: continue to monitor and replete PRN Fluids: NS @ 90ml/hr given current fluid overload DVT PPX: SCDs, chemical anticoagulation contraindicated in the setting of endocarditis. (Yi Harvey MD, R3) Problem Qualifiers (1) Altered mental status: Qualified Codes: R40.4 - Transient alteration of awareness (2) Anemia: Qualified Codes: D64.9 - Anemia, unspecified (3) Acute renal failure: Qualified Codes: N17.9 - Acute kidney failure, unspecified Yi Harvey MD, R3 Jul 16, 2017 11:02 Tessie Siegel MD Jul 16, 2017 15:59
--- NOTE | 2017-07-16 11:20 | RADRPT ---
EXAM DATE/TIME: 07/16/2017 10:56 [facility] COMPARISON: CT PULMONARY ANGIOGRAM, July 10, 2017, 19:34. CHEST SINGLE AP, July 10, 2017, 18:53. INDICATIONS : Congestion. MEDICAL HISTORY : Pulmonary embolism. Endocarditis. Asthma. Anxiety. Substance abuse. History of anticoagulant therapy, Eliquis. SURGICAL HISTORY : None. ENCOUNTER: Subsequent ACUITY: 1 week PAIN SCORE: 7/10 LOCATION: chest FINDINGS: There is worsening bilateral pulmonary infiltrates both lung schwab. The scattered bilateral pulmonar y infiltrates have increased compared to the prior chest x-ray. The heart size is mildly enlarged. No significant pleural effusions. Some of these infiltrates appear to be cavitary with fluid levels. Th e bony structures are stable. CONCLUSION: Diffuse worsening of bilateral scattered cavitary pulmonary infiltrates throughout both lung schwab c ompared to the prior studies. Yemi Maradiaga MD on July 16, 2017 at 11:17 Board Certified Radiologist. This report was verified electronically.
--- NOTE | 2017-07-16 11:26 | HHI.NPPN ---
Subjective History of Present Illness 26-year-old female with history of endocarditis and IV drug use and anxiety. Presented here today from the [facility] clinic due to worsening generalized body aches, fatigue, cough, painful fingers and toes. Symptoms started about 1 week ago and have progressively worsened. Patient reports that she was previously clean rom IV drug use for 3 years but had relapse about 1 week ago. Used IV heroin. Nephrology is consulted for acute kidney injury with creatinine of 3.97 and GFR of 14 ml/min. Additional Remarks Patient seen this morning. Patient is more lethargic today with increased swelling. Review of Systems General Constitutional: Fatigue Cardiovascular Cardiac: Edema, FAULKNER Objective Data Data Vital Signs Date Time Temp Pulse Resp B/P (MAP) Pulse Ox O2 Delivery O2 Flow Rate FiO2 07/16/17 08:19 Nasal Cannula 3.00 07/16/17 07:58 96 Nasal Cannula 2.00 07/16/17 00:00 96.8 124 20 136/69 (91) 94 07/15/17 21:15 Nasal Cannula 2.00 07/15/17 20:00 98.2 113 20 115/69 (84) 98 07/15/17 20:00 Nasal Cannula 2.00 07/15/17 16:00 98.9 103 18 110/62 (78) 94 07/15/17 15:27 18 07/15/17 12:19 95 Nasal Cannula 2.00 07/15/17 12:00 97.9 113 20 136/57 (83) 96 -: 07/16/17 0528 07/16/17 0528 Physical Exam General Appearance: No Acute Distress, Comfortable Eyes Eye Exam: Pupils Equal Throat Throat Exam: Oral Mucosa [place] & Moist Neck Neck Exam: Neck Supple Pulmonary Resp Exam: Breath Sounds Equal, No Distress, Decreased Bases Cardiology CV Exam: Regular, Normal Sinus Rhythm Gastrointestinal/Abdomen GI Exam: Soft, Non-Tender, Bowel Sounds Present Extremeties Extremities Exam: Trace Edema Neurologic Neuro Exam: Alert, Awake Psychiatric Psych Exam: Appropriate Responses Assessment/Plan Problem List: (1) ENRICO (acute kidney injury) ICD Codes: N17.9 - Acute kidney failure, unspecified Plan: Renal US. No acute findings. Mildly increased renal echogenicity characteristic of medical renal disease. ENRICO most likely pre renal Creatinine improved to 1.2 today Baseline in 01/13 was creatinine of less than 1 Plan Renal function improving labs pending today. Avoid nephrotoxins Serology pending, C3 low, and C4 normal. Continue antibiotics and follow the urine out put and BMP. Patient seen and examined, agree with above. Continue antibiotics. 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 Improved now (4) Thrombocytopenia ICD Codes: D69.6 - Thrombocytopenia, unspecified Plan: improved (5) Anemia ICD Codes: D64.9 - Anemia, unspecified Status: Acute (6) Endocarditis ICD Codes: I38 - Endocarditis, valve unspecified Status: Acute Problem Qualifiers (1) Anemia: Qualified Codes: D64.9 - Anemia, unspecified (2) Endocarditis: Qualified Codes: I33.0 - Acute and subacute infective endocarditis Tasia Arvizu Jul 16, 2017 11:26
--- NOTE | 2017-07-16 11:54 | PD.CONS ---
HPI Service Critical Care Medicine Consult Requested By Reason for Consult Severe sepsis Primary Care Physician Yi Jaime , R3 MD Candice History of Present Illness 26 y/o woman with augustine tricuspid valve MSSA endocarditis, multiple necrotic lung abscesses and additional peripheral septic sites. Extensive evaluation prior to [facility] transfer reveals septic foci in brain and embolic debris to kidney. She deteriorated clinically today which spurred the move to [facility]. Review of Systems ROS Genrally painfull in back, fingers, hips. Thirsty. Mild SOB. Past Family Social History Allergies: Coded Allergies: vancomycin (Verified Allergy, Intermediate, Rash, 07/10/17) Past Medical History Past Medical History Asthma: Yes Anxiety: Yes (hx of ) Cardiovascular Problems: Yes (TRICUSPID VALVE ENDOCARDITIS) Chest Pain: Yes Endocrine: No Genitourinary: No Immune Disorder: No Implanted Vascular Access Dvce: Yes (this has been removed) Musculoskeletal: No Neurologic: No Psychiatric: Yes Reproductive: No Respiratory: Yes Radiation Therapy: No Tetanus Vaccination: Unknown Influenza Vaccination: Yes ?: Unknown LMP: 06/27/2017 Past Surgical History Surgical History: No Previous Surgery Other Surgery: No Social History Alcohol Use: No Tobacco Use: Yes Substance Use: Yes (heroine) Allergies-Medications Allergies-Medications (Allergen,Severity, Reaction): Coded Allergies: vancomycin (Verified Allergy, Intermediate, Rash, 07/10/17) Reported Meds & Prescriptions Reported Meds & Active Scripts Active Clonazepam 1 Mg Tab 1 Mg PO BID Eliquis (Apixaban) 5 Mg Tab 5 Mg PO BID 90 Days Take 2 tablets (10 mg) bid till 10/4 then 5 mg po bid Physical Exam Vital Signs Vital Signs Date Time Temp Pulse Resp B/P (MAP) Pulse Ox O2 Delivery O2 Flow Rate FiO2 07/16/17 08:19 Nasal Cannula 3.00 07/16/17 07:58 96 Nasal Cannula 2.00 07/16/17 00:00 96.8 124 20 136/69 (91) 94 07/15/17 21:15 Nasal Cannula 2.00 07/15/17 20:00 98.2 113 20 115/69 (84) 98 07/15/17 20:00 Nasal Cannula 2.00 07/15/17 16:00 98.9 103 18 110/62 (78) 94 07/15/17 15:27 18 07/15/17 12:19 95 Nasal Cannula 2.00 07/15/17 12:00 97.9 113 20 136/57 (83) 96 Physical Exam Gen: Ill appearing, grossly edematous woman. Heda: Atraumatic. Neck: Airway widely patent. Lungs: Coarse sounds. Heart: RRR, systolic mur. Marked JVD. Abdomen: Benign, soft. Extremities: Numerous track alvarez and small areas of healing infections of various stages. Neuro: Lethargic. Moves 4 limbs spontaneously. Conversant. Laboratory Laboratory Tests Test 07/16/17 05:28 07/16/17 08:45 07/16/17 10:11 White Blood Count 11.9 Red Blood Count 2.32 Hemoglobin 6.8 Hematocrit 20.2 Mean Corpuscular Volume 87.1 Mean Corpuscular Hemoglobin 29.1 Mean Corpuscular Hemoglobin Concent 33.4 Red Cell Distribution Width 16.8 Platelet Count 136 Mean Platelet Volume 6.9 Erythrocyte Sedimentation Rate GREATER THAN 140 Blood Urea Nitrogen 22 Creatinine 1.20 Random Glucose 85 Total Protein 6.7 Albumin 1.4 Calcium Level 8.1 Alkaline Phosphatase 189 Aspartate Amino Transf (AST/SGOT) 24 Alanine Aminotransferase (ALT/SGPT) 20 Total Bilirubin 1.5 Sodium Level 132 Potassium Level 4.7 Chloride Level 103 Carbon Dioxide Level 19.4 Anion Gap 10 Estimat Glomerular Filtration Rate 54 C-Reactive Protein 13.00 Prothrombin Time 12.5 Prothromb Time International Ratio 1.2 Activated Partial Thromboplast Time 23.6 Fibrinogen 458 Date/Time Source Procedure Growth Status 07/15/17 05:35 Blood Peripheral Aerobic Blood Culture - Preliminary NO GROWTH IN 1 DAY Resulted 07/15/17 05:35 Blood Peripheral Anaerobic Blood Culture - Final QNS - SEE AEROBE REPORT Resulted 07/12/17 18:32 Sputum Expectorated Sputum Gram Stain - Final Complete 07/12/17 18:32 Sputum Culture - Final Staphylococcus Aureus Complete 07/12/17 01:33 Urine Clean Catch Legionella Antigen - Final PRESUMPTIVE NEGATIVE FOR LEGIONELLA P... Complete 07/12/17 01:33 Urine Clean Catch Streptococcus pneumoniae Antigen (M - Final PRESUMPTIVE NEGATIVE FOR STREPTOCOCCU... Complete 07/11/17 08:50 Wound Leg Gram Stain - Final Complete 07/11/17 08:50 Wound Culture - Final Staphylococcus Aureus Beta Streptococcus Group F Complete Result Diagram: 07/16/1752707/16/17527 Assessment and Plan Problem List: (1) Severe sepsis ICD Code: A41.9 - Sepsis, unspecified organism; R65.20 - Severe sepsis without septic shock Status: Acute Permanent Comment: MSSA Last Edited By: Federico Almanza on Jul 16, 2017 16:29 (2) Endocarditis of tricuspid valve ICD Code: I36.8 - Other nonrheumatic tricuspid valve disorders Status: Acute (3) Cavitary pneumonia ICD Code: J18.9 - Pneumonia, unspecified organism; J98.4 - Other disorders of lung Status: Acute (4) Cerebral abscess (embolic) ICD Code: G06.0 - Intracranial abscess and granuloma Status: Acute (5) Fluid overload ICD Code: E87.70 - Fluid overload, unspecified Status: Chronic (6) severe TR Status: Chronic Assessment and Plan Plan: 1. Oxacillin coverage for MSSA. 2. Vascular access. 3. Pepcid. 4. Chemical dvt px. 5. Transfusion rbcs. 6. Diuretics. 7. Palliative Care consult. Overall impression: The patient is critically ill with systemic sepsis from MSSA endocarditis of the augustine tricuspid valve. Care is immensely complicated because of a patent foramen ovale and pulmonary hypertension. Paradoxical septic emboli have seeded multiple organs including brain, skin, lungs. The numerous lung abscesses alone are terminal and will eventually result in massive hemoptysis. The untreated severe tricuspid insufficiency will produce intractable ascites and skin ulceration of the lower extremities unless we push chemical diuresis to the point of renal failure and institute dialysis for fluid balance control. Several digits are already at risk for amputation. She is absolutely not a candidate for valve replacement surgery because of the high risk for hemoptysis and cerebral hemorrhage when anticoagulated for cardiopulmonary bypass (Heparin 30,000 unit). Closure of the PFO is contraindicated because of the risk of placing prosthetic material adjacent to a vegetation. This is terminal condition and she will not survive 6 months from today. The organism is highly sensitive and she may well have a brief period of clinical improvement, but destruction of the involved valve will progress and the complications of peripheral edema with ulceration, intractable ascites, right heart failure, low cardiac output, and renal failure will eventuate. A sudden stroke or massive hemoptysis may shorten this trajectory considerably. I would like to have the recommendations of the Palliative Care team to assist with advising this patient and her family. Critical Care 50 mins Attila Almanza MD Jul 16, 2017 11:54
[2017-07-16] MEDS ORDERED: GADODIAMIDE PF 287 MG/ML 5 ML VIAL (for RAD MRI) IVCONTRAST ONE (12:29)
--- NOTE | 2017-07-16 13:21 | PD.CONS ---
HPI Service Orthopedic Surgeons Consult Requested By Reason for Consult Left muscular abscess near hip Right hip effusion Primary Care Physician Julia Park MD Admission Diagnosis CAVITARY PNA, SEPSIS, ARF, HYPONATREMIA Diagnoses: Chief Complaint: Pain everywhere History of Present Illness 26-year-old female with history of endocarditis and IV drug use. Presented to [facility] 6 days earlier from the [facility] [place] clinic due to worsening generalized body aches, fatigue, cough, painful fingers and toes. Symptoms started about 1 week prior to admission and have progressively worsened. Patient reports that she was previously clean from IV drug use for 3 years but had relapse about 1 week ago. Used IV heroin but reports using a clean needle. She is unsure if she used the same needle on herself but states it was not used by others. Currently complains of low back pain, R hip pain, bilateral hand and foot pain. Requesting pain medications. +Blood cultures +Endocarditis +Cavitary PNA +MRI bran pending for possible abscess Review of Systems Constitutional: COMPLAINS OF: Fever Endocrine: DENIES: Polyuria Eyes: DENIES: Blurred vision Ears, nose, mouth, throat: DENIES: Throat pain Respiratory: COMPLAINS OF: Cough Cardiovascular: COMPLAINS OF: Dyspnea on Exertion, Lower Extremity Edema Gastrointestinal: DENIES: Abdominal pain Genitourinary: DENIES: Urinary incontinence Musculoskeletal: COMPLAINS OF: Joint pain, Muscle aches, Joint Swelling, Back pain Integumentary: DENIES: Rash Hematologic/lymphatic: COMPLAINS OF: Bruising Immunologic/allergic: DENIES: Eczema Neurologic: DENIES: Abnormal gait Psychiatric: DENIES: Anxiety Past Family Social History Past Medical History Hx of endocarditis IV drug use Endocarditis with septic pulmonary emboli * History of tricuspid vegetation with severe tricuspid regurgitation * Echo 12/2016 shows elevated pulmonary arterial pressure at 35.8 Prior history of PE that required Eliquis. Patient discontinued about 1 week prior to this admission. Past Surgical History Denies Reported Medications see full chart Allergies: Coded Allergies: vancomycin (Verified Allergy, Intermediate, Rash, 07/10/17) Active Ordered Medications Current Medications Medications (Trade) Dose Ordered Sig/Gary Route Start Time Stop Time Status Last Admin Sodium Chloride 1,000 ml @ 90 mls/hr Q11H7M IV 07/10/17 20:49 07/15/17 23:30 (NS Flush) 2 ml UNSCH PRN IV FLUSH 07/10/17 21:00 (NS Flush) 2 ml BID IV FLUSH 07/10/17 21:00 07/15/17 08:06 (Tylenol) 650 mg Q4H PRN PO 07/10/17 21:00 07/14/17 02:33 (Zofran Inj) 4 mg Q6H PRN IVP 07/10/17 21:00 07/14/17 18:12 (Narcan Inj) 0.4 mg UNSCH PRN IV PUSH 07/10/17 21:00 (Milk Of Magnesia Liq) 30 ml Q12H PRN PO 07/10/17 21:00 (Senokot) 17.2 mg Q12H PRN PO 07/10/17 21:00 (Dulcolax Supp) 10 mg DAILY PRN RECTAL 07/10/17 21:00 (Lactulose Liq) 30 ml DAILY PRN PO 07/10/17 21:00 ([place]) 1 lozenge Q1H PRN BUCCAL 07/11/17 09:00 07/13/17 14:48 (Tessalon) 200 mg Q8H PRN PO 07/11/17 09:00 07/16/17 03:50 (KlonoPIN) 1 mg BID PO 07/11/17 09:00 07/16/17 08:03 (Bactroban 2% Oint) 1 applic Q8HR TOPICAL 07/11/17 09:00 07/16/17 06:49 (Blistex Lip [place]) 1 applic 5 TIMES A DAY PRN TOPICAL 07/11/17 09:00 07/11/17 17:57 (Zofran Inj) 4 mg Q6H PRN IV PUSH 07/11/17 09:00 07/16/17 03:51 (Oscal) 500 mg DAILY PO 07/11/17 10:15 07/16/17 08:04 Oxacillin Sodium 2 gm/Sodium Chloride 100 ml @ 200 mls/hr Q4H IV 07/11/17 23:00 07/16/17 08:04 (Atrovent Neb) 0.5 mg Q4HR NEB NEB 07/12/17 00:00 07/16/17 07:56 (Catapres) 0.1 mg Q6H PRN PO 07/14/17 12:45 (Ativan) 1 mg Q6H PRN PO 07/14/17 14:15 Miscellaneous Information 1 UNSCH PRN XX 07/15/17 10:15 07/18/17 10:14 (Roxicodone) 5 mg Q4H PRN PO 07/15/17 11:15 (Roxicodone) 10 mg Q4H PRN PO 07/15/17 11:15 07/16/17 08:04 Sodium Chloride 250 ml @ 15 mls/hr ONCE ONCE IV 07/16/17 07:15 07/16/17 23:54 (Tylenol) 650 mg Q4H PRN PO 07/16/17 07:30 (Benadryl) 25 mg Q4H PRN PO 07/16/17 07:30 Reported Meds & Active Scripts Active Clonazepam 1 Mg Tab 1 Mg PO BID Eliquis (Apixaban) 5 Mg Tab 5 Mg PO BID 90 Days Take 2 tablets (10 mg) bid till 01/30 then 5 mg po bid Family History noncontributory Social History Currently lives with grandparents. Parents are in [facility]. Illicit drugs: Patient reports using Alcohol: Denies Nicotine: Vapes Physical Exam Vital Signs Vital Signs Date Time Temp Pulse Resp B/P (MAP) Pulse Ox O2 Delivery O2 Flow Rate FiO2 07/16/17 08:19 Nasal Cannula 3.00 07/16/17 08:00 99.9 119 18 120/63 (82) 92 07/16/17 07:58 96 Nasal Cannula 2.00 07/16/17 00:00 96.8 124 20 136/69 (91) 94 07/15/17 21:15 Nasal Cannula 2.00 07/15/17 20:00 98.2 113 20 115/69 (84) 98 07/15/17 20:00 Nasal Cannula 2.00 07/15/17 16:00 98.9 103 18 110/62 (78) 94 07/15/17 15:27 18 Physical Exam Awake, alert, anxious. Requesting pain meds Normocephalic Pupils equal Moist mucous membranes Mildly increased respiratory rate Non tender abdomen Regular rate RLE: mild TTP about hip. Allows gentle PROM of the hip without noticeable discomfort. C/o back pain with hip mvmt. Generalized edema throughout. Sensation grossly intact. Track alvarez throughout. BCR LLE: mild TTP about lateral hip with edema. allows full PROM of hip without discomfort. Generalized edema throughout. Sensation grossly intact. Track alvarez throughout. BCR BUE: no significant tenderness or appreciable deformities. Generalized edema throughout. Sensation grossly intact. BCR No rash Normal affect although mildly anxious Laboratory Laboratory Tests Test 07/16/17 05:28 07/16/17 08:45 07/16/17 10:11 White Blood Count 11.9 Red Blood Count 2.32 Hemoglobin 6.8 Hematocrit 20.2 Mean Corpuscular Volume 87.1 Mean Corpuscular Hemoglobin 29.1 Mean Corpuscular Hemoglobin Concent 33.4 Red Cell Distribution Width 16.8 Platelet Count 136 Mean Platelet Volume 6.9 Erythrocyte Sedimentation Rate GREATER THAN 140 Blood Urea Nitrogen 22 Creatinine 1.20 Random Glucose 85 Total Protein 6.7 Albumin 1.4 Calcium Level 8.1 Alkaline Phosphatase 189 Aspartate Amino Transf (AST/SGOT) 24 Alanine Aminotransferase (ALT/SGPT) 20 Total Bilirubin 1.5 Sodium Level 132 Potassium Level 4.7 Chloride Level 103 Carbon Dioxide Level 19.4 Anion Gap 10 Estimat Glomerular Filtration Rate 54 C-Reactive Protein 13.00 Prothrombin Time 12.5 Prothromb Time International Ratio 1.2 Activated Partial Thromboplast Time 23.6 Fibrinogen 458 Date/Time Source Procedure Growth Status 07/15/17 05:35 Blood Peripheral Aerobic Blood Culture - Preliminary NO GROWTH IN 1 DAY Resulted 07/15/17 05:35 Blood Peripheral Anaerobic Blood Culture - Final QNS - SEE AEROBE REPORT Resulted 07/12/17 18:32 Sputum Expectorated Sputum Gram Stain - Final Complete 07/12/17 18:32 Sputum Culture - Final Staphylococcus Aureus Complete 07/12/17 01:33 Urine Clean Catch Legionella Antigen - Final PRESUMPTIVE NEGATIVE FOR LEGIONELLA P... Complete 07/12/17 01:33 Urine Clean Catch Streptococcus pneumoniae Antigen (M - Final PRESUMPTIVE NEGATIVE FOR STREPTOCOCCU... Complete 07/11/17 08:50 Wound Leg Gram Stain - Final Complete 07/11/17 08:50 Wound Culture - Final Staphylococcus Aureus Beta Streptococcus Group F Complete Result Diagram: 07/16/1752707/16/17527 Imaging Last 72 hours Impressions Chest X-Ray 07/16/17 0000 Signed Impressions: Service Date/Time: Sunday, July 16, 2017 10:56 - CONCLUSION: Diffuse worsening of bilateral scattered cavitary pulmonary infiltrates throughout both lung schwab compared to the prior studies. Yemi Maradiaga MD Hip MRI 07/15/17 0000 Signed Impressions: Service Date/Time: Saturday, July 15, 2017 17:29 - CONCLUSION: 1. No evidence for osteomyelitis. 2. Small to moderate-sized right hip joint effusion which does not enhance significantly post contrast. 3. 5.1 x 1.9 cm presumed small muscular abscess in the proximal left thigh adjacent to the left femoral head. 4. Extensive subcutaneous and deep tissue edema bilaterally in the pelvis, probably related to anasarca. Sebastien Moore MD Lower Extremity Ultrasound 07/14/17 0000 Signed Impressions: Service Date/Time: Friday, July 14, 2017 11:50 - CONCLUSION: Normal examination. Dang Bahena MD Hip and Pelvis X-Ray 07/14/17 0000 Signed Impressions: Service Date/Time: Friday, July 14, 2017 14:51 - CONCLUSION: Unremarkable examination of the right hip. Dang Bahena MD Assessment & Plan Assessment and Plan 26yo IVDU with endocarditis, cavitary PNA, bacteremia, multiple peripheral sites of infection including L muscular abscess about hip and small R hip effusion I discussed the case with Dr. Lalo Gilliland with Interventional Radiology. Plan is to aspirate the R hip and try to perform drainage of the L hip abscess once patient medically stable. Patient does have anemia without known source and concern for possible abscess in the brain as well. Will plan to follow-up on aspiration. Deandra Almeida MD Jul 16, 2017 13:21
--- NOTE | 2017-07-16 13:27 | RADRPT ---
EXAM DATE/TIME: 07/16/2017 11:38 [facility] COMPARISON: No previous studies available for comparison. INDICATIONS : Altered mental status. CONTRAST: 14 cc Omniscan (gadodiamide) IV MEDICAL HISTORY : Endocarditis, sepsis, IVDA SURGICAL HISTORY : None. ENCOUNTER: Subsequent ACUITY: 4-6 days PAIN SCORE: 5/10 LOCATION: lower back TECHNIQUE: Multiplanar, multisequence MRI of the brain was performed both prior to and following the administrat ion of paramagnetic contrast. FINDINGS: CEREBRUM: The ventricles are normal for age. 2 cm area of increased T2 flair signal intensity in the medial lef t occiput. Same area shows at least 2 areas of ring enhancement measuring a total of 1.7 cm in diamet er. No extraaxial fluid collections are seen. The pituitary gland and suprasellar cistern are brandyn l in configuration. WHITE MATTER: No significant signal abnormalities are seen in the white matter. POSTERIOR FOSSA: The cerebellum and brainstem are intact. The 4th ventricle is midline. The cerebellopontine angle is unremarkable. The cerebellar tonsils are normal in position. DIFFUSION IMAGING: No focal areas of restricted diffusion are seen. No evidence of acute infarction. EXTRACRANIAL: The visualized portions of the orbits and paranasal sinuses are unremarkable. POST-CONTRAST: 2 areas of ring enhancement in the medial left occiput. CONCLUSION: 1. Focal area of edema with at least 2 areas of central ring enhancement. Findings could represent rachelle th neoplastic and infectious processes. Considering the reported history, I favor the latter. 2. Lesion appears to be isolated. No midline shift. Ihsan Garvin MD on July 16, 2017 at 13:19 Board Certified Radiologist. This report was verified electronically.
--- NOTE | 2017-07-16 13:47 | HHI.NPPN ---
Subjective History of Present Illness 26-year-old female with history of endocarditis and IV drug use and anxiety. Presented here today from the [facility] clinic due to worsening generalized body aches, fatigue, cough, painful fingers and toes. Symptoms started about 1 week ago and have progressively worsened. Patient reports that she was previously clean rom IV drug use for 3 years but had relapse about 1 week ago. Used IV heroin. Nephrology is consulted for acute kidney injury with creatinine of 3.97 and GFR of 14 ml/min. Additional Remarks Patient seen this morning. Patient is more lethargic today with increased swelling. (Tasia Arvizu) Review of Systems General Constitutional: Fatigue (Tasia Arvizu) Cardiovascular Cardiac: Edema, FAULKNER (Tasia Arvizu) Objective Data Data Vital Signs Date Time Temp Pulse Resp B/P (MAP) Pulse Ox O2 Delivery O2 Flow Rate FiO2 07/16/17 08:19 Nasal Cannula 3.00 07/16/17 08:00 99.9 119 18 120/63 (82) 92 07/16/17 07:58 96 Nasal Cannula 2.00 07/16/17 00:00 96.8 124 20 136/69 (91) 94 07/15/17 21:15 Nasal Cannula 2.00 07/15/17 20:00 98.2 113 20 115/69 (84) 98 07/15/17 20:00 Nasal Cannula 2.00 07/15/17 16:00 98.9 103 18 110/62 (78) 94 07/15/17 15:27 18 (Tasia Arvizu) -: 07/16/17 0528 07/16/17 0528 Physical Exam General Appearance: No Acute Distress, Comfortable (Tasia Arvizu) Eyes Eye Exam: Pupils Equal (Tasia Arvizu) Throat Throat Exam: Oral Mucosa [place] & Moist (Tasia Arvizu) Neck Neck Exam: Neck Supple (Tasia Arvizu) Pulmonary Resp Exam: Breath Sounds Equal, No Distress, Decreased Bases (Tasia Arvizu) Cardiology CV Exam: Regular, Normal Sinus Rhythm (Tasia Arvizu) Gastrointestinal/Abdomen GI Exam: Soft, Non-Tender, Bowel Sounds Present (Tasia Arvizu) Extremeties Extremities Exam: Trace Edema (Tasia Arvizu) Neurologic Neuro Exam: Alert, Awake (Tasia Arvizu) Psychiatric Psych Exam: Appropriate Responses (Tasia Arvizu) Assessment/Plan Problem List: (1) ENRICO (acute kidney injury) ICD Codes: N17.9 - Acute kidney failure, unspecified Plan: Renal US. No acute findings. Mildly increased renal echogenicity characteristic of medical renal disease. ENRICO most likely pre renal Creatinine stable. Baseline in 01/13 was creatinine of less than 1 Plan Transfused to ICU for AMS and lethargy HGB at 6.8 plan to transfuse PRBC's Increasing edema lasix given. Abscess in right hip plan is to aspirate. Serology pending, C3 low, and C4 normal. Continue antibiotics and follow the urine out put and BMP. 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 Improved now (4) Thrombocytopenia ICD Codes: D69.6 - Thrombocytopenia, unspecified Plan: improved (5) Anemia ICD Codes: D64.9 - Anemia, unspecified Status: Acute (6) Endocarditis ICD Codes: I38 - Endocarditis, valve unspecified Status: Acute (Tasia Arvizu) Problem List: (1) ENRICO (acute kidney injury) ICD Codes: N17.9 - Acute kidney failure, unspecified Plan: Renal US. No acute findings. Mildly increased renal echogenicity characteristic of medical renal disease. ENRICO most likely pre renal Creatinine stable. Baseline in 01/13 was creatinine of less than 1 Plan Transfused to ICU for AMS and lethargy HGB at 6.8 plan to transfuse PRBC's Increasing edema lasix given. Abscess in right hip plan is to aspirate. Serology pending, C3 low, and C4 normal. Continue antibiotics and follow the urine out put and BMP. Patient seen, agree with above. Has fluid aspiration done. Creatinine is stable. 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 Improved now (4) Thrombocytopenia ICD Codes: D69.6 - Thrombocytopenia, unspecified Plan: improved (5) Anemia ICD Codes: D64.9 - Anemia, unspecified Status: Acute (6) Endocarditis ICD Codes: I38 - Endocarditis, valve unspecified Status: Acute (Janak Alonso MD) Problem Qualifiers (1) Anemia: Qualified Codes: D64.9 - Anemia, unspecified (2) Endocarditis: Qualified Codes: I33.0 - Acute and subacute infective endocarditis Tasia Arvizu Jul 16, 2017 13:47 Janak Alonso MD Jul 16, 2017 18:17
--- NOTE | 2017-07-16 13:49 | RADRPT ---
EXAM DATE/TIME: 07/16/2017 11:38 [facility] COMPARISON: No previous studies available for comparison. INDICATIONS : Altered mental status. CONTRAST: 14 cc Omniscan (gadodiamide) IV MEDICAL HISTORY : Endocarditis, sepsis, IVDA SURGICAL HISTORY : None. ENCOUNTER: Subsequent ACUITY: 4-6 days PAIN SCORE: 4/10 LOCATION: lower back TECHNIQUE: Multiplanar multisequence MRI of the lumbar spine was performed with and without contrast. FINDINGS: The most caudal appearing lumbar vertebra is numbered as L5. VERTEBRAE: Homogeneous signal. Normal alignment. CONUS: Normal level and configuration. POST CONTRAST: No abnormal areas of contrast enhancement are seen. T12-L1: The thecal sac has a normal diameter. No evidence of disc bulge or protrusion. The neural foramina are patent bilaterally. L1-L2: The thecal sac has a normal diameter. No evidence of disc bulge or protrusion. The neural foramina are patent bilaterally. L2-L3: The thecal sac has a normal diameter. No evidence of disc bulge or protrusion. The neural foramina are patent bilaterally. L3-L4: The thecal sac has a normal diameter. No evidence of disc bulge or protrusion. The neural foramina are patent bilaterally. L4-L5: The thecal sac has a normal diameter. No evidence of disc bulge or protrusion. The neural foramina are patent bilaterally. L5-S1: There is patchy enhancement in focal T2 signal within the L5-S1 intervertebral disc which is notable for some loss of disc height and dehydration. Discitis cannot be excluded. There is minimal broad laurie guillermo protrusion, mildly eccentric to the left without significant canal or foraminal compromise. No ev idence of epidural abscess or cellulitis. Elsewhere on the exam, note is made of a small focus of diminished peripheral cortical contrast enhan cement involving the posterior midpole region of the right kidney which could be an area of focal farshad lonephritis or a small infarction. It should be noted that the kidneys are not seen in their entirety on this lumbar spine MRI study. In the visualized pelvis, there appears to be moderate cul-de-sac fluid. CONCLUSION: Cannot exclude discitis involving L5-S1. Possible right renal infarction versus focal pyelonephritis. Free fluid in the pelvis. Chuy King MD on July 16, 2017 at 13:39 Board Certified Radiologist. This report was verified electronically.
[2017-07-16] MEDS ORDERED: MIDAZOLAM HCL 2 MG/2 ML VIAL ONE (14:24)
[2017-07-16] MEDS ORDERED: fentaNYL CITRATE 250 MCG/5 ML AMP ONE (14:24)
--- NOTE | 2017-07-16 15:32 | PD.RAD ---
Post Procedure Progress Note Pre Procedure Diagnosis: (1) Severe sepsis (2) Septic arthritis of hip (3) Muscle abscess Post Procedure Diagnosis: (1) Septic arthritis of hip (2) Hip pain, right (3) Muscle abscess Procedure Date: Jul 16, 2017 Supervising Radiologist: Arpan Gilliland Estimated blood loss: none Anesthesia: Local, Conscious Sedation Plan of Activity Patient to Unit: Nursing Unit Patient Condition: Poor Additional Comments: Right hip aspirated without difficulty. 4 cc of yellow purulent appearing fluid obtained and sent to the lab Left muscle abscess identified with ultrasound. a 20 ga needle was passed into this without difficulty. despite multiple passes no fluid could be obtained. The appears to be mostly phlegmon by ultrasound. Follow up ct to see if there is a residual drainable cavity would be of benefit. Case discussed with the attending physician See PACS Report for procedural detail/treatment Arpan Gilliland MD Jul 16, 2017 15:32
--- NOTE | 2017-07-16 16:01 | RADRPT ---
EXAM DATE/TIME: 07/16/2017 14:46 [facility] COMPARISON: No previous studies available for comparison. INDICATIONS : Patient with possible left hip sepsis in need of abscess drain placement for treatment. MEDICAL HISTORY : IV drug use Endocarditis PE SURGICAL HISTORY : None ENCOUNTER: Initial ACUITY: 1 week PAIN SCORE: 0/10 N/A IMAGE SERIES: 1 SEDATION TIME: 30 minutes MEDICATION(S): 1.) 4 mg midazolam (Versed) IV 2.) 200 mcg fentanyl (Sublimaze) IV PROCEDURE : 1. Abscess drainage. The risks, benefits and alternatives to the procedure were explained and verbal and written consent w as obtained. The site was prepped in sterile fashion. Full sterile technique was used, including ca p, mask, sterile gloves and gown and a large sterile sheet. Hand hygiene and 2% chlorhexidine and/or betadine/alcohol prep was utilized per protocol for cutaneous antisepsis. The skin and subcutaneous tissues were infiltrated with local anesthetic solution. The region of the left hip the left flank was carefully examined with ultrasound. There was an irregu lar area of decreased echogenicity corresponding to the region of the patient's known abscess on the MR. This appeared to be predominantly phlegmasias tissue on the ultrasound rather than a well-defined collection. The skin above was anesthetized with 5 cc 1% lidocaine. 22 gauge needle was advanced through skin int o this. Multiple passes were made. No fluid could be aspirated. CONCLUSION: A region of decreased, irregular echogenicity was identified corresponding to the are a the patient's known abscess. This did not appear to represent a well-circumscribed fluid collection or ultrasound. No fluid could be aspirated from this. Arpan Gilliland MD on July 16, 2017 at 15:57 Board Certified Radiologist. This report was verified electronically.
--- NOTE | 2017-07-16 16:18 | RADRPT ---
EXAM DATE/TIME: 07/16/2017 14:08 [facility] COMPARISON: No previous studies available for comparison. INDICATIONS : Patient presents with possible sepsis in right hip in need of joint aspiration for fluid collection a nd evaluation. MEDICAL HISTORY : Endocarditis PE SURGICAL HISTORY : None ENCOUNTER: Initial ACUITY: 1 week PAIN SCORE: 9/10 LOCATION: Right Hip FLUORO TIME: 2.2 minutes IMAGE SERIES: 2 MEDICATION(S): 1.) 4 mg Versed IV 2.) 200 mcg Fentanyl IV DEVICE(S): 21 gauge needle was placed into the right hip joint. FLUID: Total volume of4 cc of clear yellow fluid was removed. Fluid specimen was submitted to the lab for evaluation. PROCEDURE : 1. Fluoroscopically guided right hip aspiration The risks, benefits and alternatives to the procedure were explained and verbal and written consent w as obtained. The site was prepped in sterile fashion. Full sterile technique was used, including ca p, mask, sterile gloves and gown and a large sterile sheet. Hand hygiene and 2% chlorhexidine and/or betadine/alcohol prep was utilized per protocol for cutaneous antisepsis. The skin and subcutaneous tissues were infiltrated with local anesthetic solution. A suitable site was localized over the right femoral neck with fluoroscopic guidance. 22 gauge needle was advanced into the hip. There was immediate return of approximately 3-4 cc of purulent appearing material. This was sent to the lab for evaluation. The patient tolerated the procedure well and there were no complications. CONCLUSION: Uncomplicated aspiration as above. Arpan Gilliland MD on July 16, 2017 at 16:15 Board Certified Radiologist. This report was verified electronically.
--- NOTE | 2017-07-16 16:27 | HHI.IDPN ---
Subjective Subjective Remarks cont to experince SOB especially with any physical activity (e.i. talking) On O2 + cough all clx are + for MSSA co edema 2 D echo with TV vegetaion 1.6 cm and PFO Today developped lethargy, transfered to ICU L spine with diskitis L5l-S1 MRI brain with 2 enchancing lesions s/p drainage of b/l hips : R with small amount , L with no fluid return pt denies any speech difficulty or exrtrtemety weakness/numbness Antibiotics oxacillin Allergies: Coded Allergies: vancomycin (Verified Allergy, Intermediate, Rash, 07/10/17) Objective . Vital Signs Date Time Temp Pulse Resp B/P (MAP) Pulse Ox O2 Delivery O2 Flow Rate FiO2 07/16/17 13:48 99.6 126 24 132/64 100 07/16/17 08:19 Nasal Cannula 3.00 07/16/17 08:00 99.9 119 18 120/63 (82) 92 07/16/17 07:58 96 Nasal Cannula 2.00 07/16/17 00:00 96.8 124 20 136/69 (91) 94 07/15/17 21:15 Nasal Cannula 2.00 07/15/17 20:00 98.2 113 20 115/69 (84) 98 07/15/17 20:00 Nasal Cannula 2.00 07/16/17 07/16/17 07/17/17 15:00 23:00 07:00 Intake Total 20 ml Balance 20 ml Blood Product IV Normal Saline Flush 20 ml . Laboratory Tests Test 07/15/17 11:31 07/16/17 05:28 White Blood Count 14.0 TH/MM3 11.9 TH/MM3 Red Blood Count 2.51 MIL/MM3 2.32 MIL/MM3 Hemoglobin 7.2 GM/DL 6.8 GM/DL Hematocrit 21.8 % 20.2 % Mean Corpuscular Volume 86.9 FL 87.1 FL Mean Corpuscular Hemoglobin 28.5 PG 29.1 PG Mean Corpuscular Hemoglobin Concent 32.9 % 33.4 % Red Cell Distribution Width 17.0 % 16.8 % Platelet Count 127 TH/MM3 136 TH/MM3 Mean Platelet Volume 6.7 FL 6.9 FL Neutrophils (%) (Auto) 89.0 % Lymphocytes (%) (Auto) 5.9 % Monocytes (%) (Auto) 4.7 % Eosinophils (%) (Auto) 0.2 % Basophils (%) (Auto) 0.2 % Neutrophils # (Auto) 12.5 TH/MM3 Lymphocytes # (Auto) 0.8 TH/MM3 Monocytes # (Auto) 0.7 TH/MM3 Eosinophils # (Auto) 0.0 TH/MM3 Basophils # (Auto) 0.0 TH/MM3 CBC Comment DIFF FINAL Differential Comment Erythrocyte Sedimentation Rate GREATER THAN 140 mm/hr Laboratory Tests Test 07/15/17 11:31 07/16/17 05:28 07/16/17 08:45 Blood Urea Nitrogen 22 MG/DL 22 MG/DL Creatinine 1.21 MG/DL 1.20 MG/DL Random Glucose 129 MG/DL 85 MG/DL Total Protein 6.3 GM/DL 6.7 GM/DL Albumin 1.3 GM/DL 1.4 GM/DL Calcium Level 7.7 MG/DL 8.1 MG/DL Alkaline Phosphatase 187 U/L 189 U/L Aspartate Amino Transf (AST/SGOT) 28 U/L 24 U/L Alanine Aminotransferase (ALT/SGPT) 21 U/L 20 U/L Total Bilirubin 2.1 MG/DL 1.5 MG/DL Sodium Level 134 MEQ/L 132 MEQ/L Potassium Level 4.1 MEQ/L 4.7 MEQ/L Chloride Level 104 MEQ/L 103 MEQ/L Carbon Dioxide Level 19.8 MEQ/L 19.4 MEQ/L Anion Gap 10 MEQ/L 10 MEQ/L Estimat Glomerular Filtration Rate 53 ML/MIN 54 ML/MIN C-Reactive Protein 13.00 MG/DL Microbiology Date/Time Source Procedure Growth Status 07/15/17 05:35 Blood Peripheral Aerobic Blood Culture - Preliminary NO GROWTH IN 1 DAY Resulted 07/15/17 05:35 Blood Peripheral Anaerobic Blood Culture - Final QNS - SEE AEROBE REPORT Resulted 07/14/17 08:57 Blood Peripheral Aerobic Blood Culture - Final Staphylococcus Aureus Resulted 07/14/17 08:57 Blood Peripheral Anaerobic Blood Culture - Preliminary NO GROWTH IN 2 DAYS Resulted Imaging Last Impressions Brain MRI 07/16/17 1124 Signed Impressions: Service Date/Time: Sunday, July 16, 2017 11:38 - CONCLUSION: 1. Focal area of edema with at least 2 areas of central ring enhancement. Findings could represent both neoplastic and infectious processes. Considering the reported history, I favor the latter. 2. Lesion appears to be isolated. No midline shift. Ihsan Garvin MD Lumbar Spine MRI 07/16/17 0000 Signed Impressions: Service Date/Time: Sunday, July 16, 2017 11:38 - CONCLUSION: Cannot exclude discitis involving L5-S1. Possible right renal infarction versus focal pyelonephritis. Free fluid in the pelvis. Chuy King MD Chest X-Ray 07/16/17 Signed Impressions: Service Date/Time: Sunday, July 16, 2017 10:56 - CONCLUSION: Diffuse worsening of bilateral scattered cavitary pulmonary infiltrates throughout both lung schwab compared to the prior studies. Yemi Maradiaga MD Abscess Drainage X-Ray 07/16/17 0000 Signed Impressions: Service Date/Time: Sunday, July 16, 2017 14:46 - CONCLUSION: A region of decreased, irregular echogenicity was identified corresponding to the area the patient's known abscess. This did not appear to represent a well-circumscribed fluid collection or ultrasound. No fluid could be aspirated from this. Arpan Gilliland MD Hip MRI 07/15/17 0000 Signed Impressions: Service Date/Time: Saturday, July 15, 2017 17:29 - CONCLUSION: 1. No evidence for osteomyelitis. 2. Small to moderate-sized right hip joint effusion which does not enhance significantly post contrast. 3. 5.1 x 1.9 cm presumed small muscular abscess in the proximal left thigh adjacent to the left femoral head. 4. Extensive subcutaneous and deep tissue edema bilaterally in the pelvis, probably related to anasarca. Sebastien Moore MD Lower Extremity Ultrasound 07/14/17 0000 Signed Impressions: Service Date/Time: Friday, July 14, 2017 11:50 - CONCLUSION: Normal examination. Dang Bahena MD Hip and Pelvis X-Ray 07/14/17 0000 Signed Impressions: Service Date/Time: Friday, July 14, 2017 14:51 - CONCLUSION: Unremarkable examination of the right hip. Dang Bahena MD Renal Ultrasound 07/11/17 0000 Signed Impressions: Service Date/Time: June 09:00 - CONCLUSION: 1. No acute findings. Mildly increased renal echogenicity characteristic of medical renal disease. Sebastien Moore MD CT Angiography 07/10/17 0000 Signed Impressions: Service Date/Time: Monday, July 10, 2017 19:34 - CONCLUSION: 1. No pulmonary embolus. 2. Widespread patchy cavitary pneumonia of both lungs and probably on the basis of septic emboli. 3. Nonspecific hepatosplenomegaly. 4. Probable tricuspid regurgitation. Chuy Yang MD Physical Exam CONSTITUTIONAL/GENERAL: This is an adequately nourished patient, appears less sick, toxic, though still looks quite acutely ill In no resp distress; occasional dry cough TUBES/LINES/DRAINS: SKIN: No jaundice, rashes, or lesions. Ecchymoses on upper extremities. No wounds seen anteriorly. Skin temperature appropriate. Not diaphoretic. On exam: SKIN with needle alvarez and multiple embolic lesions involving fingers, toes soles and palpms L thumb and L hallux evolving large embolic lesions L thumb tip - necrotic EYES: Pupils equal and round and reactive. Extraocular motions intact. No scleral icterus. No injection or drainage. Fundi not examined. CARDIOVASCULAR: Regular tachycardia + 3/6 holosystolic murmur S1S2 present no gallops, or rubs. No JVD. Peripheral pulses symmetric. RESPIRATORY/CHEST: Symmetric, unlabored respirations. Clear to auscultation. Breath sounds equal bilaterally. No wheezes, rales, or rhonchi. GASTROINTESTINAL: Abdomen soft, non-tender, nondistended. No hepato-splenomegaly , or palpable masses. No guarding. Bowel sounds present. MUSCULOSKELETAL: Extremities without clubbing, cyanosis, +3-4 BLE edema. No joint tenderness or effusion noted. No calf tenderness. No mottling or clubbing. LYMPHATICS: No palpable cervical or supraclavicular adenopathy.lear speech NEUROLOGICAL: Awake and alert. Motor and sensory grossly within normal limits. Follows commands. Clear speech. Moves all extremities. PSYCHIATRIC: No obvious anxiety/depression. no apparent hallucinations or other psychotic thought process. L Assessment & Plan Remarks TV endocarditis with PFO , MSSA with multiple systemic embolic lesions, including brain - PFO will explain systemic emboli in this pt Red man sd to vancomycin L5S1 diskitis Vir strep bacteremia - also likley 2/2 endocarditis 5.1 x 1.9 cm presumed small muscular abscess in the proximal left thigh adjacent to the left femoral head. Active IV user with high risk for sugery 2/2 it Plan: cont Oxacillin fu serial blood clx utill final monitor for systemic emboli Pt though has T endocarditis is expected to have possibly complications of L sided endocarditis 2/2 PFO incluiding septic emboli to brain Discussed Condition With Maria Luisa Victor, Minor and residents Shana Mosley MD Jul 16, 2017 16:27
[2017-07-16 21:18] LABS: WBC, SYNOVIAL FLUID 1860 /MM3 (0-200)
[2017-07-17] VITALS (12 sets, daily range): BP systolic 102–126; BP diastolic 58–73; PULSE 92–116; RESP 16–20; TEMP 98.5–99.8; O2SAT 93–100
[2017-07-17] MEDS: RESP: IPRATROPIUM 0.5 MG/2.5 ML NEB NEB SCH ×5 (03:01→20:53)
[2017-07-17] MEDS: OXACILLIN INJ 2 GM in SODIUM CHLORIDE 0.9% INJ 100 ML IV SCH ×6 (03:03→23:46)
[2017-07-17] MEDS: BENZONATATE 100 MG CAP PO PRN ×3 (03:03→18:33)
[2017-07-17] MEDS: MUPIROCIN 2% OINT 22 GM TUBE TOPICAL SCH ×3 (06:44→22:00)
[2017-07-17 07:04] LABS: AUTOMATED NEUTROPHIL # 9.7 TH/MM3 (1.8-7.7); BASOPHIL % 0.4 % (0.0-2.0); EOSINOPHIL % 0.3 % (0.0-4.0); HEMATOCRIT 21.8 % (35.0-46.0); HEMOGLOBIN 7.5 GM/DL (11.6-15.3); LYMPH % 7.9 % (9.0-44.0); LYMPHOCYTE # 0.9 TH/MM3 (1.0-4.8); MEAN CELL VOLUME 84.3 FL (80.0-100.0); MEAN CORPUSCULAR HGB CONC 34.4 % (32.0-36.0); MEAN PLATELET VOLUME 6.7 FL (7.0-11.0); MONO % 4.1 % (0.0-8.0); MONOCYTE # 0.5 TH/MM3 (0-0.9); NEUT % 87.3 % (16.0-70.0); PLATELET COUNT 156 TH/MM3 (150-450); RED BLOOD COUNT 2.59 MIL/MM3 (4.00-5.30); RED CELL DISTRIBUTION WIDTH 17.5 % (11.6-17.2); WHITE BLOOD COUNT 11.2 TH/MM3 (4.0-11.0)
[2017-07-17 07:34] LABS: ALBUMIN 1.3 GM/DL (3.4-5.0); ALT (GPT) 16 U/L (10-53); AST (GOT) 22 U/L (15-37); BICARBONATE 25.1 MEQ/L (21.0-32.0); BLOOD UREA NITROGEN 21 MG/DL (7-18); CALCIUM 7.6 MG/DL (8.5-10.1); CHLORIDE 101 MEQ/L (98-107); CREATININE 1.27 MG/DL (0.50-1.00); GLOMERULAR FILTRATION RATE 50 ML/MIN (>89); GLUCOSE,RANDOM 114 MG/DL (74-106); SODIUM (NA) 133 MEQ/L (136-145)
[2017-07-17 07:36] LABS: ALKALINE PHOSPHATASE 159 U/L (45-117); TOTAL BILIRUBIN ADULT 1.4 MG/DL (0.2-1.0); TOTAL PROTEIN 6.4 GM/DL (6.4-8.2)
[2017-07-17] MEDS: SODIUM CHLORIDE 0.9% FLUSH 10 ML FLUSH IV FLUSH SCH ×2 (08:44→21:00)
[2017-07-17] MEDS: CALCIUM CARBONATE 1.25 GM (CA 500 MG) TAB PO SCH (08:44)
[2017-07-17] MEDS: clonazePAM 1 MG TAB PO SCH ×2 (08:44→21:34)
--- NOTE | 2017-07-17 10:39 | HHI.CCPN ---
Subjective Remarks/Hospital Course 26 y/o woman with [place] tricuspid valve MSSA endocarditis, multiple necrotic lung abscesses and additional peripheral septic sites. Extensive evaluation prior to [facility] transfer reveals septic foci in brain and embolic debris to kidney. She deteriorated clinically today which spurred the move to [facility]. 07/17: Family initially reluctant to talk to Palliative Care service. I think best approach is to acknowledge the severity of the illness and discuss how best to continue her care. I recommend oxacillin, large dose diuretics, and analgesics as necessary. There is no surgical solution. Please see my note below. Objective Vital Signs Date Time Temp Pulse Resp B/P (MAP) Pulse Ox O2 Delivery O2 Flow Rate FiO2 07/17/17 10:00 104 07/17/17 09:44 20 07/17/17 08:00 100 Nasal Cannula 3.00 Humidified 07/17/17 08:00 99.7 107/58 (74) Intake and Output 07/17/17 07/17/17 07/18/17 08:00 16:00 00:00 Intake Total 440 ml Balance 440 ml Result Diagram: 07/17/17 0650 07/17/17 0650 Other Results Laboratory Tests Test 07/16/17 13:42 Blood Gas Puncture Site RT RADIAL Blood Gas Patient Temperature 98.6 Blood Gas HCO3 21 mmol/L (22-26) Blood Gas Base Excess -3.0 mmol/L (-2-2) Blood Gas Oxygen Saturation 95 % (90-100) Arterial Blood pH 7.43 (7.380-7.420) Arterial Blood Partial Pressure CO2 31 mmHg (38-42) Arterial Blood Partial Pressure O2 83 mmHg (61-120) Arterial Blood Oxygen Content 8.8 Vol % (12.0-20.0) Arterial Blood Carboxyhemoglobin 1.9 % (0-4) Arterial Blood Methemoglobin 0.6 % (0-2) Blood Gas Hemoglobin 6.5 G/DL (12.0-16.0) Oxygen Delivery Device NASAL CANNULA Blood Gas Liter Flow 6 L/M Objective Remarks Gen: Ill appearing, grossly edematous woman. Head: Atraumatic. Neck: Airway widely patent. Lungs: Coarse sounds. Heart: RRR, systolic mur. Marked JVD. Abdomen: Benign, soft. Extremities: Numerous track alvarez and small areas of healing infections of various stages. Neuro: Lethargic. Moves 4 limbs spontaneously. Conversant. A/P Problem List: (1) Severe sepsis ICD Code: A41.9 - Sepsis, unspecified organism; R65.20 - Severe sepsis without septic shock Status: Acute Permanent Comment: MSSA Last Edited By: Federico Almanza on Jul 16, 2017 16:29 (2) Endocarditis of tricuspid valve ICD Code: I36.8 - Other nonrheumatic tricuspid valve disorders Status: Acute (3) Cavitary pneumonia ICD Code: J18.9 - Pneumonia, unspecified organism; J98.4 - Other disorders of lung Status: Acute (4) Cerebral abscess (embolic) ICD Code: G06.0 - Intracranial abscess and granuloma Status: Acute (5) Fluid overload ICD Code: E87.70 - Fluid overload, unspecified Status: Chronic (6) severe TR Status: Chronic Assessment and Plan Plan: 1. Oxacillin coverage for MSSA. 2. Vascular access. 3. Pepcid. 4. Chemical dvt px. 5. Transfusion rbcs. 6. Diuretics. 7. Palliative Care consult. Overall impression: The patient is critically ill with systemic sepsis from MSSA endocarditis of the [place] tricuspid valve. Care is immensely complicated because of a patent foramen ovale and pulmonary hypertension. Paradoxical septic emboli have seeded multiple organs including brain, skin, lungs. The numerous lung abscesses alone are terminal and will eventually result in massive hemoptysis. The untreated severe tricuspid insufficiency will produce intractable ascites and skin ulceration of the lower extremities unless we push chemical diuresis to the point of renal failure and institute dialysis for fluid balance control. Several digits are already at risk for amputation. She is absolutely not a candidate for valve replacement surgery because of the high risk for hemoptysis and cerebral hemorrhage when anticoagulated for cardiopulmonary bypass (Heparin 30,000 unit). Closure of the PFO is contraindicated because of the risk of placing prosthetic material adjacent to a vegetation. This is terminal condition and she will not survive 6 months from today. The organism is highly sensitive and she may well have a brief period of clinical improvement, but destruction of the involved valve will progress and the complications of peripheral edema with ulceration, intractable ascites, right heart failure, low cardiac output, and renal failure will eventuate. A sudden stroke or massive hemoptysis may shorten this trajectory considerably. I would like to have the recommendations of the Palliative Care team to assist with advising this patient and her family. Attila Almanza MD Jul 17, 2017 10:39
--- NOTE | 2017-07-17 11:20 | HHI.NPPN ---
Subjective History of Present Illness 26-year-old female with history of endocarditis and IV drug use and anxiety. Presented here today from the [facility] clinic due to worsening generalized body aches, fatigue, cough, painful fingers and toes. Symptoms started about 1 week ago and have progressively worsened. Patient reports that she was previously clean rom IV drug use for 3 years but had relapse about 1 week ago. Used IV heroin. Nephrology is consulted for acute kidney injury with creatinine of 3.97 and GFR of 14 ml/min. Additional Remarks Patient seen this morning. Patient is more alert today. Continues to have edema. (Tasia Arvizu) Review of Systems General Constitutional: Fatigue (Tasia Arvizu) Cardiovascular Cardiac: Edema, FAULKNER (Tasia Arvizu) Objective Data Data 07/17/17 07/18/17 19:00 07:00 Intake Total 200 ml Balance 200 ml IV Total 200 ml Vital Signs Date Time Temp Pulse Resp B/P (MAP) Pulse Ox O2 Delivery O2 Flow Rate FiO2 07/17/17 10:00 104 07/17/17 09:44 20 07/17/17 08:00 103 07/17/17 08:00 100 Nasal Cannula 3.00 Humidified 07/17/17 08:00 99.7 104 20 107/58 (74) 99 07/17/17 07:37 100 Nasal Cannula 3.00 07/17/17 06:00 112 07/17/17 04:00 99.3 108 16 108/59 (75) 100 07/17/17 04:00 108 07/17/17 03:05 100 Nasal Cannula 4.00 07/17/17 02:00 100 07/17/17 00:00 99.7 98 20 114/70 (85) 100 07/17/17 00:00 98 07/16/17 23:59 100 Nasal Cannula 4.00 07/16/17 22:00 102 07/16/17 20:00 108 07/16/17 20:00 99.1 108 18 105/70 (82) 99 07/16/17 19:31 100 Nasal Cannula 4.00 07/16/17 19:00 100 Nasal Cannula 4.00 Humidified 07/16/17 18:00 108 07/16/17 16:36 99.3 122 22 138/74 96 07/16/17 16:33 99.3 124 20 134/60 96 07/16/17 16:00 99.3 113 19 131/71 (91) 100 07/16/17 16:00 113 07/16/17 13:48 99.6 126 24 132/64 100 07/16/17 12:45 99.6 110 28 124/72 (89) 100 07/16/17 12:45 110 (Tasia Arvizu) -: 07/17/17 0650 07/17/17 0650 Microbiology 07/16/17 Gram Stain - Final, Resulted 07/16/17 Body Fluid Culture, Resulted Pending (Tasia Arvizu) Physical Exam General Appearance: No Acute Distress, Comfortable (Tasia Arvizu) Eyes Eye Exam: Pupils Equal (Tasia Arvizu) Throat Throat Exam: Oral Mucosa [place] & Moist (Tasia Arvizu) Neck Neck Exam: Neck Supple (Tasia Arvizu) Pulmonary Resp Exam: Breath Sounds Equal, No Distress, Decreased Bases (Tasia Arvizu) Cardiology CV Exam: Regular, Normal Sinus Rhythm (Tasia Arvizu) Gastrointestinal/Abdomen GI Exam: Soft, Non-Tender, Bowel Sounds Present (Tasia Arvizu) Extremeties Extremities Exam: Moderate Edema (Tasia Arvizu) Neurologic Neuro Exam: Alert, Awake (Tasia Arvizu) Psychiatric Psych Exam: Appropriate Responses (Tasia Arvizu) Assessment/Plan Problem List: (1) ENRICO (acute kidney injury) ICD Codes: N17.9 - Acute kidney failure, unspecified Plan: Renal US. No acute findings. Mildly increased renal echogenicity characteristic of medical renal disease. ENRICO most likely pre renal Creatinine stable. Baseline in 01/13 was creatinine of less than 1 Plan Creatinine is stable at 1.27 with good UOP Continues to have edema will order lasix daily. Serology negative Continue antibiotics and follow the urine out put and BMP. 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 Improved now (4) Thrombocytopenia ICD Codes: D69.6 - Thrombocytopenia, unspecified Plan: improved (5) Anemia ICD Codes: D64.9 - Anemia, unspecified Status: Acute (6) Endocarditis ICD Codes: I38 - Endocarditis, valve unspecified Status: Acute (Tasia Arvizu) Problem List: (1) ENRICO (acute kidney injury) ICD Codes: N17.9 - Acute kidney failure, unspecified Plan: Renal US. No acute findings. Mildly increased renal echogenicity characteristic of medical renal disease. ENRICO most likely pre renal Creatinine stable. Baseline in 01/13 was creatinine of less than 1 Plan Creatinine is stable at 1.27 with good UOP Continues to have edema will order Lasix daily. Serology negative Continue antibiotics and follow the urine out put and BMP. Patient seen and examined, agree with above. Creatinine is stable, Lasix for edema. 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 Improved now (4) Thrombocytopenia ICD Codes: D69.6 - Thrombocytopenia, unspecified Plan: improved (5) Anemia ICD Codes: D64.9 - Anemia, unspecified Status: Acute (6) Endocarditis ICD Codes: I38 - Endocarditis, valve unspecified Status: Acute (Janak Alonso MD) Problem Qualifiers (1) Anemia: Qualified Codes: D64.9 - Anemia, unspecified (2) Endocarditis: Qualified Codes: I33.0 - Acute and subacute infective endocarditis Tasia Arvizu Jul 17, 2017 11:19 Janak Alonso MD Jul 17, 2017 22:55
--- NOTE | 2017-07-17 11:37 | HHI.FPPN ---
Subjective Remarks Tachycardia up to 112 overnight. O2 saturation 99-100% on 3L NC. Afebrile overnight and BP remains stable. Patient has new pain in her right shoulder today that she notices with movement of her arm. She also notes a burning sensation at the bottom of her feet that comes and goes. She has been tolerating PO and voiding independently. She continues to have widespread pain throughout her body. She notes that it is especially painful when she coughs. (Yi Harvey MD, R3) Objective Vitals Vital Signs Date Time Temp Pulse Resp B/P (MAP) Pulse Ox O2 Delivery O2 Flow Rate FiO2 07/17/17 10:00 104 07/17/17 09:44 20 07/17/17 08:00 103 07/17/17 08:00 100 Nasal Cannula 3.00 Humidified 07/17/17 08:00 99.7 104 20 107/58 (74) 99 07/17/17 07:37 100 Nasal Cannula 3.00 07/17/17 06:00 112 07/17/17 04:00 99.3 108 16 108/59 (75) 100 07/17/17 04:00 108 07/17/17 03:05 100 Nasal Cannula 4.00 07/17/17 02:00 100 07/17/17 00:00 99.7 98 20 114/70 (85) 100 07/17/17 00:00 98 07/16/17 23:59 100 Nasal Cannula 4.00 07/16/17 22:00 102 07/16/17 20:00 108 07/16/17 20:00 99.1 108 18 105/70 (82) 99 07/16/17 19:31 100 Nasal Cannula 4.00 07/16/17 19:00 100 Nasal Cannula 4.00 Humidified 07/16/17 18:00 108 07/16/17 16:36 99.3 122 22 138/74 96 07/16/17 16:33 99.3 124 20 134/60 96 07/16/17 16:00 99.3 113 19 131/71 (91) 100 07/16/17 16:00 113 07/16/17 13:48 99.6 126 24 132/64 100 07/16/17 12:45 99.6 110 28 124/72 (89) 100 07/16/17 12:45 110 I/O 07/16/17 07/16/17 07/16/17 07/17/17 07/17/17 07/17/17 07:00 15:00 23:00 07:00 15:00 23:00 Intake Total 1651 ml 20 ml 2510 ml 340 ml 200 ml Output Total 400 ml 600 ml Balance 1251 ml 20 ml 1910 ml 340 ml 200 ml Intake Oral 660 ml 240 ml IV Total 1651 ml 200 ml 100 ml 200 ml Packed Cells 1600 ml Blood Product IV Normal Saline Flush 20 ml 50 ml Output Urine Total 400 ml 600 ml # Voids 7 # Bowel Movements 0 (Yi Harvey MD, R3) Result Diagram: 07/17/17 0650 07/17/17 0650 Imaging Last Impressions Brain MRI 07/16/17 1124 Signed Impressions: Service Date/Time: Sunday, July 16, 2017 11:38 - CONCLUSION: 1. Focal area of edema with at least 2 areas of central ring enhancement. Findings could represent both neoplastic and infectious processes. Considering the reported history, I favor the latter. 2. Lesion appears to be isolated. No midline shift. Ihsan Garvin MD Lumbar Spine MRI 07/16/17 0000 Signed Impressions: Service Date/Time: Sunday, July 16, 2017 11:38 - CONCLUSION: Cannot exclude discitis involving L5-S1. Possible right renal infarction versus focal pyelonephritis. Free fluid in the pelvis. Chuy King MD Hip Aspiration/Injection 07/16/17 0000 Signed Impressions: Service Date/Time: Sunday, July 16, 2017 14:08 - CONCLUSION: Uncomplicated aspiration as above. Arpan Gilliland MD Chest X-Ray 07/16/17 0000 Signed Impressions: Service Date/Time: Sunday, July 16, 2017 10:56 - CONCLUSION: Diffuse worsening of bilateral scattered cavitary pulmonary infiltrates throughout both lung schwab compared to the prior studies. Yemi Maradiaga MD Abscess Drainage X-Ray 07/16/17 0000 Signed Impressions: Service Date/Time: Sunday, July 16, 2017 14:46 - CONCLUSION: A region of decreased, irregular echogenicity was identified corresponding to the area the patient's known abscess. This did not appear to represent a well-circumscribed fluid collection or ultrasound. No fluid could be aspirated from this. Arpan Gilliland MD Hip MRI 07/15/17 0000 Signed Impressions: Service Date/Time: Saturday, July 15, 2017 17:29 - CONCLUSION: 1. No evidence for osteomyelitis. 2. Small to moderate-sized right hip joint effusion which does not enhance significantly post contrast. 3. 5.1 x 1.9 cm presumed small muscular abscess in the proximal left thigh adjacent to the left femoral head. 4. Extensive subcutaneous and deep tissue edema bilaterally in the pelvis, probably related to anasarca. Sebastien Moore MD Lower Extremity Ultrasound 07/14/17 0000 Signed Impressions: Service Date/Time: Friday, July 14, 2017 11:50 - CONCLUSION: Normal examination. Dang Bahena MD Hip and Pelvis X-Ray 07/14/17 0000 Signed Impressions: Service Date/Time: Friday, July 14, 2017 14:51 - CONCLUSION: Unremarkable examination of the right hip. Dang Bahena MD Renal Ultrasound 07/11/17 0000 Signed Impressions: Service Date/Time: June 09:00 - CONCLUSION: 1. No acute findings. Mildly increased renal echogenicity characteristic of medical renal disease. Sebastien Moore MD CT Angiography 07/10/17 0000 Signed Impressions: Service Date/Time: Monday, July 10, 2017 19:34 - CONCLUSION: 1. No pulmonary embolus. 2. Widespread patchy cavitary pneumonia of both lungs and probably on the basis of septic emboli. 3. Nonspecific hepatosplenomegaly. 4. Probable tricuspid regurgitation. Chuy Yang MD Objective Remarks GENERAL: This is an acutely ill appearing female pt. Generally edematous. SKIN: Healing sites of multiple track alvarez noted on upper and lower extremity. On the medial aspect of the left lower leg there is a 1x1 cm healing lesion. No bleeding present. Multiple splinter hemorrhages on bilateral fingers and toes and surrounding ecchymosis. Small hematoma covering the tip of the left thumb with overlying superficial skin desquamation. On the right toe #1, similar small blister hemorrhage. Posterior upper extremities and bilateral lower extremities with ecchymosis. EYES: Extraocular motions intact. ENT: Moist mucous membranes. NECK: No JVD or lymphadenopathy. CARDIOVASCULAR: Tachycardic rate with normal rhythm. Grade 3/6 systolic murmur. No carotid bruits. RESPIRATORY: Crackles bilaterally. No accessory muscle use. NC in place. GASTROINTESTINAL: Abdomen non-tender. MUSCULOSKELETAL: Edematous extremities. Tenderness to palpation of right shoulder, pain with internal and external rotation. NEUROLOGICAL: Drowsy but arousable. Still closes her eyes during conversation but is able to stay awake. Normal speech. 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 Widespread infection with MSSA with poor prognosis. Discharge Planning Patient is acutely ill and will likely require weeks of treatment in the hospital. (Yi Harvey MD, R3) Attending Attestation Patient seen and examined. Case reviewed and discussed with the resident team. Agree with plan of care as discussed with me and documented in the resident note. Patient clinically slightly improved, may be the result of PRBC transfusion. Based on the multiple areas of septic emboli, the PFO and the worsening cavitations in her lungs, dwpt and her family that her prognosis is very poor and she will likely not survive more than 6 months. Palliative care /hospice is likely appropriate at this stage, PT and family declines today. Will continue to discuss and family court counsellor the patient based on her progress from day to day. Consider repeat MRI brain to look for further seeding/septic emboli. (Tessie Siegel MD) Problem List: (1) Severe sepsis with acute organ dysfunction due to Staphylococcus species ICD Codes: A41.2 - Sepsis due to unspecified staphylococcus; R65.20 - Severe sepsis without septic shock Status: Acute Plan: Patient with history of endocarditis and septic pulmonary emboli 11/2016 and 12/2016. Current symptoms started after relapse with IV heroin. HIV, hepatitis panel negative Continues to meet severe sepsis secondary to tricuspid endocarditis with septic pulmonary emboli, left thigh muscle abscess, right hip joint effusion, brain abscess, L5-S1 discitis, pyelonephritis/renal infarction s/p right hip aspiration draining 4ml of yellow purulent appearing fluid on by Dr. Gilliland Unable to drain muscle abscess Leukocytosis trending down from 11.9 to 11.2 today CRP trending up from 10 to 13 ESR remains elevated >140 07/12 Sputum culture growing harrington sensitive staph aureus 07/10 urine culture growing 50-100,000 CFU/mL mixed gram positive brittni 07/10 CTA: widespread patchy cavitary pneumonia of both lung on the basis of septic emboli 07/11 Wound culture growing harrington sensitive staph aureus and beta strep Group F 07/11 Echo shows vegetation on the tricuspid valve, pulmonary valve regurg 07/10 Blood cultures staph aureus x 4 07/12 Blood cultures staph aureus and viridans strep x 2 07/14 Blood cultures staph aureus 07/15 Blood cultures no growth in 2 days 07/15 KALIN tricuspid vegetation, severe tricuspid regurg, small PFO with right to left shunt (potential source for systemic emboli) 07/16 Synovial fluid culture pending Plan: - New right shoulder pain- consider shoulder MRI - Consult [employer] Professor- this is a terminal condition with life expectancy no more than 6 months, continue current management, consult palliative care - Orthopedic surgeon consulted- Joint effusion drained by IR, will follow cultures - ID consulted, appreciate assistance * Continue Oxacillin 2g IV Q4H (started 07/12) - Follow cultures Imagin/19 Hip MRI small moderate right hip joint effusion and small muscular abscess in the proximal left thigh adjacent to the left femoral head * CTA: No PE. Widespread patchy cavitary pneumonia both lungs and probable on the basis of septic emboli. Nonspecific hepatosplenomegaly. Probable tricuspid regurgitation. * 07/10 CXR: Patchy cavitary pneumonia, fairly stable on the right but substantially worse on the left * Lower extremity ultrasound: Negative for venous thrombosis * KALIN 07/15 confirms right-sided endocarditis with severe tricuspid regurgitation (w/mobile vegetation on tricuspid valve), moderate to severe pulmonary hypertension, and no other valvular vegetation.A patent foramen ovale is present with a [id number] shunt demonstrated by color flow Doppler interrogation. * 07/16 Brain MRI: 2 areas of central ring enhancement * 07/16 Spine MRI: discitis involving L5-S1, possible right renal infarction versus focal pyelonephritis (2) Endocarditis of tricuspid valve ICD Codes: I36.8 - Other nonrheumatic tricuspid valve disorders Status: Acute (3) Altered mental status ICD Codes: R41.82 - Altered mental status, unspecified (4) Anemia ICD Codes: D64.9 - Anemia, unspecified Status: Acute Plan: Hemoglobin continues to trend down to 6.8 today Baseline hemoglobin around 13.1 per chart review - Transfuse 2 units PRBC - Obtain Hemoccult (5) Cavitary pneumonia ICD Codes: J18.9 - Pneumonia, unspecified organism; J98.4 - Other disorders of lung Status: Acute (6) Muscle abscess ICD Codes: M62.89 - Other specified disorders of muscle Status: Acute (7) Acute renal failure ICD Codes: N17.9 - Acute kidney failure, unspecified Status: Acute Plan: BUN 106, Creatinine on admission was 4.56 with baseline being <1. -Closely monitor electrolyte disturbances -Closely monitor fluid resuscitation -consult Nephrology appreciate recommendations (8) IVDU (intravenous drug user) ICD Codes: F19.90 - Other psychoactive substance use, unspecified, uncomplicated Status: Chronic Plan: clonidine 0.1 mg every 6 hours when necessary for agitation (9) Nutrition, metabolism, and development symptoms ICD Codes: R63.8 - Other symptoms and signs concerning food and fluid intake Status: Acute Plan: Diet: Regular Electrolytes: continue to monitor and replete PRN Fluids: NS @ 90ml/hr given current fluid overload DVT PPX: SCDs, chemical anticoagulation contraindicated in the setting of endocarditis. (Yi Harvey MD, R3) Problem Qualifiers (1) Altered mental status: Qualified Codes: R40.4 - Transient alteration of awareness (2) Anemia: Qualified Codes: D64.9 - Anemia, unspecified (3) Acute renal failure: Qualified Codes: N17.9 - Acute kidney failure, unspecified Yi Harvey MD, R3 Jul 17, 2017 11:37 Tessie Siegel MD Jul 17, 2017 15:55
[2017-07-17] MEDS: ONDANSETRON HCL 4 MG/2 ML VIAL IV PUSH PRN (15:41)
[2017-07-17] MEDS: MORPHINE SULFATE 2 MG/ML INJ IV PUSH PRN (15:56)
--- NOTE | 2017-07-17 16:18 | PD.CAR.PN ---
CVT Progress Note Subjective/Hospital Course: Unfortunate 26y/o female known to our service s/p admission with endocarditis involving the tricuspid valve late last year following which I saw her as an outpatient. She was strongly advised to cease using IV drugs, but has persisted leading to this present episode of care. She has septic emboli which is widespread perhaps through a patent foramen ovale. She has severe TR and a vegetation on ECHO. Numerous recent blood cultures are positive for MSSA. Dr. Mosley requested me to review her current status and advise. Objective: Vital Signs Date Time Temp Pulse Resp B/P (MAP) Pulse Ox O2 Delivery O2 Flow Rate FiO2 07/17/17 12:00 99.7 97 20 114/68 (83) 100 07/17/17 12:00 97 07/17/17 12:00 98.8 111 18 126/73 (90) 97 07/17/17 10:00 104 07/17/17 09:44 20 07/17/17 08:00 103 07/17/17 08:00 100 Nasal Cannula 3.00 Humidified 07/17/17 08:00 99.7 104 20 107/58 (74) 99 07/17/17 07:37 100 Nasal Cannula 3.00 07/17/17 06:00 112 07/17/17 04:00 99.3 108 16 108/59 (75) 100 07/17/17 04:00 108 07/17/17 03:05 100 Nasal Cannula 4.00 07/17/17 02:00 100 07/17/17 00:00 99.7 98 20 114/70 (85) 100 07/17/17 00:00 98 07/16/17 23:59 100 Nasal Cannula 4.00 07/16/17 22:00 102 07/16/17 20:00 108 07/16/17 20:00 99.1 108 18 105/70 (82) 99 07/16/17 19:31 100 Nasal Cannula 4.00 07/16/17 19:00 100 Nasal Cannula 4.00 Humidified 07/16/17 18:00 108 07/16/17 16:36 99.3 122 22 138/74 96 07/16/17 16:33 99.3 124 20 134/60 96 Labs: Laboratory Tests Test 07/17/17 06:50 White Blood Count 11.2 TH/MM3 (4.0-11.0) Red Blood Count 2.59 MIL/MM3 (4.00-5.30) Hemoglobin 7.5 GM/DL (11.6-15.3) Hematocrit 21.8 % (35.0-46.0) Mean Corpuscular Volume 84.3 FL (80.0-100.0) Mean Corpuscular Hemoglobin 29.0 PG (27.0-34.0) Mean Corpuscular Hemoglobin Concent 34.4 % (32.0-36.0) Red Cell Distribution Width 17.5 % (11.6-17.2) Platelet Count 156 TH/MM3 (150-450) Mean Platelet Volume 6.7 FL (7.0-11.0) Neutrophils (%) (Auto) 87.3 % (16.0-70.0) Lymphocytes (%) (Auto) 7.9 % (9.0-44.0) Monocytes (%) (Auto) 4.1 % (0.0-8.0) Eosinophils (%) (Auto) 0.3 % (0.0-4.0) Basophils (%) (Auto) 0.4 % (0.0-2.0) Neutrophils # (Auto) 9.7 TH/MM3 (1.8-7.7) Lymphocytes # (Auto) 0.9 TH/MM3 (1.0-4.8) Monocytes # (Auto) 0.5 TH/MM3 (0-0.9) Eosinophils # (Auto) 0.0 TH/MM3 (0-0.4) Basophils # (Auto) 0.0 TH/MM3 (0-0.2) CBC Comment DIFF FINAL Differential Comment Blood Urea Nitrogen 21 MG/DL (7-18) Creatinine 1.27 MG/DL (0.50-1.00) Random Glucose 114 MG/DL (74-106) Total Protein 6.4 GM/DL (6.4-8.2) Albumin 1.3 GM/DL (3.4-5.0) Calcium Level 7.6 MG/DL (8.5-10.1) Alkaline Phosphatase 159 U/L (45-117) Aspartate Amino Transf (AST/SGOT) 22 U/L (15-37) Alanine Aminotransferase (ALT/SGPT) 16 U/L (10-53) Total Bilirubin 1.4 MG/DL (0.2-1.0) Sodium Level 133 MEQ/L (136-145) Potassium Level 4.3 MEQ/L (3.5-5.1) Chloride Level 101 MEQ/L (98-107) Carbon Dioxide Level 25.1 MEQ/L (21.0-32.0) Anion Gap 7 MEQ/L (5-15) Estimat Glomerular Filtration Rate 50 ML/MIN (>89) Result Diagram: 07/17/17 0650 07/17/17 0650 Imaging: Last Impressions Brain MRI 07/16/17 1124 Signed Impressions: Service Date/Time: Sunday, July 16, 2017 11:38 - CONCLUSION: 1. Focal area of edema with at least 2 areas of central ring enhancement. Findings could represent both neoplastic and infectious processes. Considering the reported history, I favor the latter. 2. Lesion appears to be isolated. No midline shift. Ihsan Garvin MD Lumbar Spine MRI 07/16/17 0000 Signed Impressions: Service Date/Time: Sunday, July 16, 2017 11:38 - CONCLUSION: Cannot exclude discitis involving L5-S1. Possible right renal infarction versus focal pyelonephritis. Free fluid in the pelvis. Chuy King MD Hip Aspiration/Injection 07/16/17 0000 Signed Impressions: Service Date/Time: Sunday, July 16, 2017 14:08 - CONCLUSION: Uncomplicated aspiration as above. Arpan Gilliland MD Chest X-Ray 07/16/17 0000 Signed Impressions: Service Date/Time: Sunday, July 16, 2017 10:56 - CONCLUSION: Diffuse worsening of bilateral scattered cavitary pulmonary infiltrates throughout both lung schwab compared to the prior studies. Yemi Maradiaga MD Abscess Drainage X-Ray 07/16/17 0000 Signed Impressions: Service Date/Time: Sunday, July 16, 2017 14:46 - CONCLUSION: A region of decreased, irregular echogenicity was identified corresponding to the area the patient's known abscess. This did not appear to represent a well-circumscribed fluid collection or ultrasound. No fluid could be aspirated from this. Arpan Gilliland MD Hip MRI 07/15/17 0000 Signed Impressions: Service Date/Time: Saturday, July 15, 2017 17:29 - CONCLUSION: 1. No evidence for osteomyelitis. 2. Small to moderate-sized right hip joint effusion which does not enhance significantly post contrast. 3. 5.1 x 1.9 cm presumed small muscular abscess in the proximal left thigh adjacent to the left femoral head. 4. Extensive subcutaneous and deep tissue edema bilaterally in the pelvis, probably related to anasarca. Sebastien Moore MD Lower Extremity Ultrasound 07/14/17 0000 Signed Impressions: Service Date/Time: Friday, July 14, 2017 11:50 - CONCLUSION: Normal examination. Dang Bahena MD Hip and Pelvis X-Ray 07/14/17 0000 Signed Impressions: Service Date/Time: Friday, July 14, 2017 14:51 - CONCLUSION: Unremarkable examination of the right hip. Dang Bahena MD Renal Ultrasound 07/11/17 0000 Signed Impressions: Service Date/Time: June 09:00 - CONCLUSION: 1. No acute findings. Mildly increased renal echogenicity characteristic of medical renal disease. Sebastien Moore MD CT Angiography 07/10/17 0000 Signed Impressions: Service Date/Time: Monday, July 10, 2017 19:34 - CONCLUSION: 1. No pulmonary embolus. 2. Widespread patchy cavitary pneumonia of both lungs and probably on the basis of septic emboli. 3. Nonspecific hepatosplenomegaly. 4. Probable tricuspid regurgitation. Chuy Yang MD Cardiovascular: RRR Telemetry: ST Pulmonary: Diffuse crackles bilat Plan: Unfortunate 26 y/o female with recurrent endocarditis secondary to ongoing IV drug use. Her prognosis is poor and at prohibitive risk for surgical intervention at this time. Her family is very concerned and I offered that medical and supportive care is her best option currently. If she resolves her acute issues, she may be reconsidered for TV replacement in the future, but would have to be drug-free for 6 months to a year first. She is not likely to survive that long. Janice Clay MD Jul 17, 2017 16:18
--- NOTE | 2017-07-17 16:51 | PD.ORT.PN ---
Subjective Subjective Remarks Stable overnight. Transfused PRBCs. Continues to complain of pain especially in her low back Objective Vitals Vital Signs Date Time Temp Pulse Resp B/P (MAP) Pulse Ox O2 Delivery O2 Flow Rate FiO2 07/17/17 13:10 Nasal Cannula 4.00 07/17/17 12:00 99.7 97 20 114/68 (83) 100 07/17/17 12:00 97 07/17/17 12:00 98.8 111 18 126/73 (90) 97 07/17/17 10:00 104 07/17/17 09:44 20 07/17/17 08:00 103 07/17/17 08:00 100 Nasal Cannula 3.00 Humidified 07/17/17 08:00 99.7 104 20 107/58 (74) 99 07/17/17 07:37 100 Nasal Cannula 3.00 07/17/17 06:00 112 07/17/17 04:00 99.3 108 16 108/59 (75) 100 07/17/17 04:00 108 07/17/17 03:05 100 Nasal Cannula 4.00 07/17/17 02:00 100 07/17/17 00:00 99.7 98 20 114/70 (85) 100 07/17/17 00:00 98 07/16/17 23:59 100 Nasal Cannula 4.00 07/16/17 22:00 102 07/16/17 20:00 108 07/16/17 20:00 99.1 108 18 105/70 (82) 99 07/16/17 19:31 100 Nasal Cannula 4.00 07/16/17 19:00 100 Nasal Cannula 4.00 Humidified 07/16/17 18:00 108 I/O 07/16/17 07/16/17 07/16/17 07/17/17 07/17/17 07/17/17 07:00 15:00 23:00 07:00 15:00 23:00 Intake Total 1651 ml 20 ml 2510 ml 340 ml 200 ml Output Total 400 ml 600 ml Balance 1251 ml 20 ml 1910 ml 340 ml 200 ml Intake Oral 660 ml 240 ml IV Total 1651 ml 200 ml 100 ml 200 ml Packed Cells 1600 ml Blood Product IV Normal Saline Flush 20 ml 50 ml Output Urine Total 400 ml 600 ml # Voids 7 # Bowel Movements 0 Result Diagram: 07/17/17 0650 07/17/17 0650 Objective Remarks awake, alert, no acute distress Bilateral lower extremities: Significant edema throughout. Right hip has mild discomfort with range of motion although complains more back pain with motion. Left hip with some mild tenderness palpation of the lateral aspect although this seems consistent throughout all extremities. Patient appears neurovascularly intact. Assessment & Plan Assessment and Plan 26yo IVDU with endocarditis, cavitary PNA, bacteremia, multiple peripheral sites of infection including L muscular abscess and right hip effusion Right hip effusion aspirated yesterday by IR. Cultures are pending. WBC only 1800 and synovial fluid which is well below the typical threshold for a septic arthritis. However, given patient's multiple septic emboli and seeding of multiple organisms, my concern is she could have infection in her right hip and therefore would follow her cultures. However, patient has grave medical prognosis and therefore any urgent intervention could likely predispose her to significant medical risks. Her pulmonary cavitations are highly concerning for anesthesia along with her brain abscesses. In addition, I am concerned that she could continue to seed multiple joints and therefore trying to wash out any joint is unlikely to change her overall prognosis. The goal of orthopedic intervention for a septic arthritis is for the prevention of chondrolysis as a result of bacteria within the joint, in addition to trying to decrease the bacterial burden to allow for eventual eradication of the infection. In this situation, eradication of infection is essentially impossible and chondrolysis is very possible. However, with her grave medical prognosis I am not sure that prevention of chondrolysis and eventual arthritis is her biggest concern at this time. Deandra Almeida MD Jul 17, 2017 16:51
[2017-07-17 23:13] LABS: HEMOGLOBIN 7.3 GM/DL (11.6-15.3)
[2017-07-17 23:18] LABS: HEMATOCRIT 20.5 % (35.0-46.0)
[2017-07-18] VITALS (10 sets, daily range): BP systolic 98–123; BP diastolic 56–76; PULSE 101–121; RESP 17–20; TEMP 98.3–101.1; O2SAT 92–98
[2017-07-18] MEDS: RESP: IPRATROPIUM 0.5 MG/2.5 ML NEB NEB SCH ×6 (00:12→19:29)
[2017-07-18] MEDS: BENZONATATE 100 MG CAP PO PRN ×3 (03:19→22:42)
[2017-07-18] MEDS: OXACILLIN INJ 2 GM in SODIUM CHLORIDE 0.9% INJ 100 ML IV SCH ×6 (03:31→22:43)
[2017-07-18] MEDS: MUPIROCIN 2% OINT 22 GM TUBE TOPICAL SCH ×3 (06:00→22:00)
[2017-07-18 08:34] LABS: BASOPHIL # 0.1 TH/MM3 (0-0.2); BASOPHIL % 0.6 % (0.0-2.0); EOSINOPHIL % 0.4 % (0.0-4.0); LYMPH % 9.1 % (9.0-44.0); LYMPHOCYTE # 0.8 TH/MM3 (1.0-4.8); MEAN CELL VOLUME 85.9 FL (80.0-100.0); MEAN CORPUSCULAR HEMOGLOBIN 29.8 PG (27.0-34.0); MEAN CORPUSCULAR HGB CONC 34.7 % (32.0-36.0); MEAN PLATELET VOLUME 7.2 FL (7.0-11.0); MONO % 5.7 % (0.0-8.0); MONOCYTE # 0.5 TH/MM3 (0-0.9); NEUT % 84.2 % (16.0-70.0); PLATELET COUNT 166 TH/MM3 (150-450); RED BLOOD COUNT 2.34 MIL/MM3 (4.00-5.30); RED CELL DISTRIBUTION WIDTH 17.2 % (11.6-17.2); WHITE BLOOD COUNT 8.3 TH/MM3 (4.0-11.0)
[2017-07-18 08:46] LABS: HEMATOCRIT 20.1 % (35.0-46.0)
[2017-07-18] MEDS: CALCIUM CARBONATE 1.25 GM (CA 500 MG) TAB PO SCH (08:48)
[2017-07-18] MEDS: clonazePAM 1 MG TAB PO SCH ×2 (08:48→22:44)
[2017-07-18] MEDS: SODIUM CHLORIDE 0.9% FLUSH 10 ML FLUSH IV FLUSH SCH ×2 (08:49→22:45)
[2017-07-18 09:00] LABS: ALBUMIN 1.3 GM/DL (3.4-5.0); AST (GOT) 21 U/L (15-37); BICARBONATE 22.6 MEQ/L (21.0-32.0); BLOOD UREA NITROGEN 22 MG/DL (7-18); CALCIUM 7.5 MG/DL (8.5-10.1); CHLORIDE 100 MEQ/L (98-107); CREATININE 1.28 MG/DL (0.50-1.00); GLOMERULAR FILTRATION RATE 50 ML/MIN (>89); GLUCOSE,RANDOM 100 MG/DL (74-106); SODIUM (NA) 131 MEQ/L (136-145)
[2017-07-18] MEDS ORDERED: FUROSEMIDE 20 MG TAB PO SCH (09:00)
[2017-07-18 09:02] LABS: ALT (GPT) 15 U/L (10-53)
[2017-07-18 09:03] LABS: ALKALINE PHOSPHATASE 187 U/L (45-117); TOTAL BILIRUBIN ADULT 1.1 MG/DL (0.2-1.0); TOTAL PROTEIN 6.4 GM/DL (6.4-8.2)
[2017-07-18] MEDS: NYSTATIN 100,000 U/GM PWD 15 GM BTL TOPICAL SCH ×2 (11:45→22:44)
--- NOTE | 2017-07-18 12:11 | HHI.FPPN ---
Subjective Remarks Patient was febrile overnight w/Tmax 100.2. I/O 1.0/0.350 w/positive fluid balance. Patient states that he has pain continued w/right hip pain. Is and states that last night she started feeling that something was not quite right in her genital region. States that she had the nurse take a look, and that the nurse exclaimed that somebody needs to take a look at her external genitalia. States that she's been having bleeding. (Rosamaria Sanford MD R1) Objective Vitals Vital Signs Date Time Temp Pulse Resp B/P (MAP) Pulse Ox O2 Delivery O2 Flow Rate FiO2 07/18/17 08:36 95 Nasal Cannula 2.00 07/18/17 08:00 98.3 121 19 115/70 (85) 92 07/18/17 04:00 99.7 118 18 112/64 (80) 95 07/18/17 00:00 100.2 120 18 123/76 (92) 98 07/17/17 20:53 95 Nasal Cannula 3.00 07/17/17 20:00 99.8 116 18 102/64 (77) 94 07/17/17 20:00 Nasal Cannula 3.00 07/17/17 16:00 98.5 92 16 126/64 (84) 93 07/17/17 13:10 Nasal Cannula 4.00 I/O 07/17/17 07/17/17 07/17/17 07/18/17 07/18/17 07/18/17 07:00 15:00 23:00 07:00 15:00 23:00 Intake Total 340 ml 200 ml 920 ml 820 ml Output Total 250 ml 100 ml Balance 340 ml 200 ml 670 ml 720 ml Intake Oral 240 ml 720 ml 720 ml IV Total 100 ml 200 ml 200 ml 100 ml Output Urine Total 250 ml 100 ml # Voids 7 # Bowel Movements 0 0 (Rosamaria Sanford MD R1) Result Diagram: 07/18/1773707/18/17737 Objective Remarks GENERAL: This is an acutely ill appearing female pt. Generally edematous. SKIN: Healing sites of multiple track alvarez noted on upper and lower extremity. On the medial aspect of the left lower leg there is a 1x1 cm healing lesion. No bleeding present. Multiple splinter hemorrhages on bilateral fingers and toes and surrounding ecchymosis. Small hematoma covering the tip of the left thumb with overlying superficial skin desquamation. On the right toe #1, similar small blister hemorrhage. Posterior upper extremities and bilateral lower extremities with ecchymosis. EYES: Extraocular motions intact. ENT: Moist mucous membranes. NECK: No JVD or lymphadenopathy. CARDIOVASCULAR: Tachycardic rate with normal rhythm. Grade 3/6 systolic murmur. No carotid bruits. RESPIRATORY: Crackles bilaterally. No accessory muscle use. NC in place. GASTROINTESTINAL: Abdomen non-tender. MUSCULOSKELETAL: Edematous (pitting) extremities. Tenderness to palpation of right shoulder, pain with internal and external rotation. NEUROLOGICAL: Drowsy but arousable. Still closes her eyes during conversation but is able to stay awake. Normal speech. : Upon exam, there is a red rash of the skin in the genital region. The right labia has significant swelling compared to the left. Is not significantly tender to palpation, no erythema, no drainage. There is bleeding exiting the vagina. On speculum exam, no blood is seen leaving the introitus of the cervix, however bright red blood is in the cervical vault. Cultures were taken from the endocervix. 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 Widespread infection with MSSA with poor prognosis. Discharge Planning Patient is acutely ill and will likely require weeks of treatment in the hospital. Palliative was consulted today. (Rosamaria Sanford MD R1) Attending Attestation Patient seen and examined. Case reviewed and discussed with the resident team. Agree with plan of care as discussed with me and documented in the resident note. (Tessie Siegel MD) Problem List: (1) Vaginal bleeding ICD Codes: N93.9 - Abnormal uterine and vaginal bleeding, unspecified Plan: Hemoglobin 7.0 today from hemoglobin level yesterday 7.3 S/p transfusion on 07/16 of 2 units Per physical exam, bleeding is likely uterine Differential: Irregular menstrual bleeding versus infection v bleeding diathesis 2/2 endocarditis and sepsis Transfuse patient 2 units Trend coag profile daily Cultures of endocervix ordered and pending (2) Labial swelling ICD Codes: N94.89 - Other specified conditions associated with female genital organs and menstrual cycle Plan: Unilateral No erythema or tenderness to palpation Differential: Abscess versus fraction versus lymphadenitis/lymphedema Order soft tissue ultrasound (3) Yumiko infection of genital region ICD Codes: B37.49 - Other urogenital candidiasis Plan: Nystatin powder to 12 hours to affected site (4) Severe sepsis with acute organ dysfunction due to Staphylococcus species ICD Codes: A41.2 - Sepsis due to unspecified staphylococcus; R65.20 - Severe sepsis without septic shock Status: Acute Plan: Patient with history of endocarditis and septic pulmonary emboli 11/2016 and 12/2016. Current symptoms started after relapse with IV heroin. HIV, hepatitis panel negative Continues to meet severe sepsis secondary to tricuspid endocarditis with septic pulmonary emboli, left thigh muscle abscess, right hip joint effusion, brain abscess, L5-S1 discitis, pyelonephritis/renal infarction s/p right hip aspiration draining 4ml of yellow purulent appearing fluid on by Dr. Gilliland Unable to drain muscle abscess Leukocytosis trending down from 11.9 to 11.2 today CRP trending up from 10 to 13 ESR remains elevated >140 07/12 Sputum culture growing harrington sensitive staph aureus 07/10 urine culture growing 50-100,000 CFU/mL mixed gram positive brittni 07/10 CTA: widespread patchy cavitary pneumonia of both lung on the basis of septic emboli 07/11 Wound culture growing harrington sensitive staph aureus and beta strep Group F 07/11 Echo shows vegetation on the tricuspid valve, pulmonary valve regurg 07/10 Blood cultures staph aureus x 4 07/12 Blood cultures staph aureus and viridans strep x 2 07/14 Blood cultures staph aureus 07/15 Blood cultures no growth in 2 days 07/15 KALIN tricuspid vegetation, severe tricuspid regurg, small PFO with right to left shunt (potential source for systemic emboli) 07/16 Synovial fluid culture pending Plan: - New right shoulder pain- onset on 07/17, patient states it is beter today - Consult [employer] Supervisor- this is a terminal condition with life expectancy no more than 6 months, continue current management, consult palliative care - Orthopedic surgeon consulted- Joint effusion drained by IR, will follow cultures - ID consulted, appreciate assistance * Continue Oxacillin 2g IV Q4H (started 07/12) - Follow cultures For pain: - Oxycodone 5 mg Q4H PRN pain 3-5 - Oxycodone 10 mg Q4H PRN for pain 6-10 - Morphine 2 mg Q4H IV for pain PRN breakthrough Imagin/19 Hip MRI small moderate right hip joint effusion and small muscular abscess in the proximal left thigh adjacent to the left femoral head * CTA: No PE. Widespread patchy cavitary pneumonia both lungs and probable on the basis of septic emboli. Nonspecific hepatosplenomegaly. Probable tricuspid regurgitation. * 07/10 CXR: Patchy cavitary pneumonia, fairly stable on the right but substantially worse on the left * Lower extremity ultrasound: Negative for venous thrombosis * KALIN 07/15 confirms right-sided endocarditis with severe tricuspid regurgitation (w/mobile vegetation on tricuspid valve), moderate to severe pulmonary hypertension, and no other valvular vegetation.A patent foramen ovale is present with a [id number] shunt demonstrated by color flow Doppler interrogation. * 07/16 Brain MRI: 2 areas of central ring enhancement * 07/16 Spine MRI: discitis involving L5-S1, possible right renal infarction versus focal pyelonephritis (5) Endocarditis of tricuspid valve ICD Codes: I36.8 - Other nonrheumatic tricuspid valve disorders Status: Acute Plan: See above (6) Altered mental status ICD Codes: R41.82 - Altered mental status, unspecified (7) Anemia ICD Codes: D64.9 - Anemia, unspecified Status: Acute Plan: Baseline hemoglobin around 13.1 per chart review S/p 2 units transfusion on 07/16 Hgb 7.0 today Transfuse 2 units today (8) Anasarca ICD Codes: R60.1 - Generalized edema Plan: Weight gain -> 90.5 today from 78.9 yesterday Positive fluid balance DC'd fluids Lasix IV 40 mg BID (9) Cavitary pneumonia ICD Codes: J18.9 - Pneumonia, unspecified organism; J98.4 - Other disorders of lung Status: Acute (10) Muscle abscess ICD Codes: M62.89 - Other specified disorders of muscle Status: Acute (11) Acute renal failure ICD Codes: N17.9 - Acute kidney failure, unspecified Status: Acute Plan: BUN 106, Creatinine on admission was 4.56 with baseline being <1. Stable -Closely monitor electrolyte disturbances -Closely monitor fluid resuscitation -consult Nephrology appreciate recommendations (12) IVDU (intravenous drug user) ICD Codes: F19.90 - Other psychoactive substance use, unspecified, uncomplicated Status: Chronic Plan: clonidine 0.1 mg every 6 hours when necessary for agitation (13) Nutrition, metabolism, and development symptoms ICD Codes: R63.8 - Other symptoms and signs concerning food and fluid intake Status: Acute Plan: Diet: Regular Electrolytes: continue to monitor and replete PRN Fluids: PO DVT PPX: SCDs, chemical anticoagulation contraindicated in the setting of endocarditis. (Rosamaria Sanford MD R1) Problem Qualifiers (1) Altered mental status: Qualified Codes: R40.4 - Transient alteration of awareness (2) Anemia: Qualified Codes: D64.9 - Anemia, unspecified (3) Acute renal failure: Qualified Codes: N17.9 - Acute kidney failure, unspecified Rosamaria Sanford MD R1 Jul 18, 2017 12:11 Tessie Siegel MD Jul 19, 2017 12:56
--- NOTE | 2017-07-18 14:35 | HHI.NPPN ---
Subjective History of Present Illness 26-year-old female with history of endocarditis and IV drug use and anxiety. Presented here today from the [facility] clinic due to worsening generalized body aches, fatigue, cough, painful fingers and toes. Symptoms started about 1 week ago and have progressively worsened. Patient reports that she was previously clean rom IV drug use for 3 years but had relapse about 1 week ago. Used IV heroin. Nephrology is consulted for acute kidney injury with creatinine of 3.97 and GFR of 14 ml/min. Additional Remarks Patient seen this morning. Increasing edema. SOB has improved. (Tasia Arvizu) Review of Systems General Constitutional: Fatigue (Tasia Arvizu) Cardiovascular Cardiac: Edema, FAULKNER (Tasia Arvizu) Objective Data Data Vital Signs Date Time Temp Pulse Resp B/P (MAP) Pulse Ox O2 Delivery O2 Flow Rate FiO2 07/18/17 12:00 99.7 101 18 107/64 (78) 97 07/18/17 11:00 20 07/18/17 08:36 95 Nasal Cannula 2.00 07/18/17 08:00 98.3 121 19 115/70 (85) 92 07/18/17 04:00 99.7 118 18 112/64 (80) 95 07/18/17 00:00 100.2 120 18 123/76 (92) 98 07/17/17 20:53 95 Nasal Cannula 3.00 07/17/17 20:00 99.8 116 18 102/64 (77) 94 07/17/17 20:00 Nasal Cannula 3.00 07/17/17 16:00 98.5 92 16 126/64 (84) 93 (Tasia Arvizu) -: 07/18/17 0738 07/18/17 0738 Microbiology 07/18/17 Neisseria gonorrhoeae Culture, Received Pending (Tasia Arvizu) Physical Exam General Appearance: No Acute Distress, Comfortable (Tasia Arvizu) Eyes Eye Exam: Pupils Equal (Tasia Arvizu) Throat Throat Exam: Oral Mucosa Whitlash & Moist (Tasia Arvizu) Neck Neck Exam: Neck Supple (Tasia Arvizu) Pulmonary Resp Exam: Breath Sounds Equal, No Distress, Decreased Bases (Tasia Arvizu) Cardiology CV Exam: Regular, Normal Sinus Rhythm (Tasia Arvizu) Gastrointestinal/Abdomen GI Exam: Soft, Non-Tender, Bowel Sounds Present (Tasia Arvizu) Extremeties Extremities Exam: Moderate Edema (Tasia Arvizu) Neurologic Neuro Exam: Alert, Awake (Tasia Arvizu) Psychiatric Psych Exam: Appropriate Responses (Tasia Arvizu) Assessment/Plan Problem List: (1) ENRICO (acute kidney injury) ICD Codes: N17.9 - Acute kidney failure, unspecified Plan: Renal US. No acute findings. Mildly increased renal echogenicity characteristic of medical renal disease. ENRICO most likely pre renal Creatinine stable. Baseline in 01/13 was creatinine of less than 1 Plan Creatinine is stable at 1.2 with good UOP Increasing edema Lasix has been increased 40 mg IV BID Serology negative HGB trending downwards at 7.0 today. Continue antibiotics and follow the urine out put and BMP. 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 Improved now (4) Thrombocytopenia ICD Codes: D69.6 - Thrombocytopenia, unspecified Plan: improved (5) Anemia ICD Codes: D64.9 - Anemia, unspecified Status: Acute (6) Endocarditis ICD Codes: I38 - Endocarditis, valve unspecified Status: Acute (Tasia Arvizu) Problem List: (1) ENRICO (acute kidney injury) ICD Codes: N17.9 - Acute kidney failure, unspecified Plan: Renal US. No acute findings. Mildly increased renal echogenicity characteristic of medical renal disease. ENRICO most likely pre renal Creatinine stable. Baseline in 01/13 was creatinine of less than 1 Plan Creatinine is stable at 1.2 with good UOP Increasing edema Lasix has been increased 40 mg IV BID Serology negative HGB trending downwards at 7.0 today. Continue antibiotics and follow the urine out put and BMP. Patient seen and examined, agree with above. Creatinine is stable at 1.2. 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 Improved now (4) Thrombocytopenia ICD Codes: D69.6 - Thrombocytopenia, unspecified Plan: improved (5) Anemia ICD Codes: D64.9 - Anemia, unspecified Status: Acute (6) Endocarditis ICD Codes: I38 - Endocarditis, valve unspecified Status: Acute (Janak Alonso MD) Problem Qualifiers (1) Anemia: Qualified Codes: D64.9 - Anemia, unspecified (2) Endocarditis: Qualified Codes: I33.0 - Acute and subacute infective endocarditis Tasia Arvizu Jul 18, 2017 14:35 Janak Alonso MD Jul 18, 2017 21:57
[2017-07-18] MEDS ORDERED: FUROSEMIDE 40 MG/4 ML VIAL IV PUSH SCH ×2 (14:45→18:00)
[2017-07-18] MEDS ORDERED: SODIUM CHLOR 0.9% 250 ML INJ 250 ML IV ONE (16:00)
[2017-07-18] MEDS ORDERED: ACETAMINOPHEN 325 MG TAB PO PRN (16:00)
[2017-07-18] MEDS ORDERED: FUROSEMIDE 20 MG/2 ML VIAL IV PUSH ONE (16:00)
[2017-07-18 16:45] LABS: HEMOGLOBIN 8.5 GM/DL (11.6-15.3)
--- NOTE | 2017-07-18 16:50 | RADRPT ---
EXAM DATE/TIME: 07/18/2017 15:11 [place] COMPARISON: None INDICATIONS : Labia fluid collection MEDICAL HISTORY : Asthma, Tricuspid valve endocarditis. SURGICAL HISTORY : None. ENCOUNTER: Initial ACUITY: 1 day PAIN SCORE: 5/10 LOCATION: Left Labia AREA EVALUATED: Left labia. FINDINGS: The left labia was evaluated sonographically. There is a heterogeneous slightly greater than 7 cm mix ed echogenicity mass/collection associated with the area of swelling which is nonspecific. This may b e phlegmon. CONCLUSION: Heterogeneous mass/collection Chuy King MD on July 18, 2017 at 16:46 Board Certified Radiologist. This report was verified electronically.
[2017-07-18] MEDS: SODIUM CHLORIDE 0.9% FLUSH 10 ML FLUSH IV FLUSH PRN (16:51)
[2017-07-18] MEDS: ONDANSETRON HCL 4 MG/2 ML VIAL IV PUSH PRN (16:51)
--- NOTE | 2017-07-18 18:09 | HHI.IDPN ---
Subjective Subjective Remarks cont to do poorly seen by CTS , Dr Rust confirmed prohibitve risks for surgery Cont to have + blood clx Multiple metastatic infection (hip joints, shoulder, diskitis) NO c/o speech difficulties or extremeties weakness Antibiotics oxacillin Allergies: Coded Allergies: vancomycin (Verified Allergy, Intermediate, Rash, 07/10/17) Objective . Vital Signs Date Time Temp Pulse Resp B/P (MAP) Pulse Ox O2 Delivery O2 Flow Rate FiO2 07/18/17 16:00 100.0 115 17 115/67 (83) 94 07/18/17 15:48 97 Nasal Cannula 2.00 07/18/17 12:00 99.7 101 18 107/64 (78) 97 07/18/17 11:00 20 07/18/17 08:45 Nasal Cannula 2.00 07/18/17 08:36 95 Nasal Cannula 2.00 07/18/17 08:00 98.3 121 19 115/70 (85) 92 07/18/17 04:00 99.7 118 18 112/64 (80) 95 07/18/17 00:00 100.2 120 18 123/76 (92) 98 07/17/17 20:53 95 Nasal Cannula 3.00 07/17/17 20:00 99.8 116 18 102/64 (77) 94 07/17/17 20:00 Nasal Cannula 3.00 . Laboratory Tests Test 07/17/17 06:50 07/17/17 22:56 07/18/17 07:38 07/18/17 11:35 White Blood Count 11.2 TH/MM3 8.3 TH/MM3 Red Blood Count 2.59 MIL/MM3 2.34 MIL/MM3 Hemoglobin 7.5 GM/DL 7.3 GM/DL 7.0 GM/DL 8.5 GM/DL Hematocrit 21.8 % 20.5 % 20.1 % 25.0 % Mean Corpuscular Volume 84.3 FL 85.9 FL Mean Corpuscular Hemoglobin 29.0 PG 29.8 PG Mean Corpuscular Hemoglobin Concent 34.4 % 34.7 % Red Cell Distribution Width 17.5 % 17.2 % Platelet Count 156 TH/MM3 166 TH/MM3 Mean Platelet Volume 6.7 FL 7.2 FL Neutrophils (%) (Auto) 87.3 % 84.2 % Lymphocytes (%) (Auto) 7.9 % 9.1 % Monocytes (%) (Auto) 4.1 % 5.7 % Eosinophils (%) (Auto) 0.3 % 0.4 % Basophils (%) (Auto) 0.4 % 0.6 % Neutrophils # (Auto) 9.7 TH/MM3 7.0 TH/MM3 Lymphocytes # (Auto) 0.9 TH/MM3 0.8 TH/MM3 Monocytes # (Auto) 0.5 TH/MM3 0.5 TH/MM3 Eosinophils # (Auto) 0.0 TH/MM3 0.0 TH/MM3 Basophils # (Auto) 0.0 TH/MM3 0.1 TH/MM3 CBC Comment DIFF FINAL DIFF FINAL Differential Comment Laboratory Tests Test 07/17/17 06:50 07/18/17 07:38 Blood Urea Nitrogen 21 MG/DL 22 MG/DL Creatinine 1.27 MG/DL 1.28 MG/DL Random Glucose 114 MG/DL 100 MG/DL Total Protein 6.4 GM/DL 6.4 GM/DL Albumin 1.3 GM/DL 1.3 GM/DL Calcium Level 7.6 MG/DL 7.5 MG/DL Alkaline Phosphatase 159 U/L 187 U/L Aspartate Amino Transf (AST/SGOT) 22 U/L 21 U/L Alanine Aminotransferase (ALT/SGPT) 16 U/L 15 U/L Total Bilirubin 1.4 MG/DL 1.1 MG/DL Sodium Level 133 MEQ/L 131 MEQ/L Potassium Level 4.3 MEQ/L 4.5 MEQ/L Chloride Level 101 MEQ/L 100 MEQ/L Carbon Dioxide Level 25.1 MEQ/L 22.6 MEQ/L Anion Gap 7 MEQ/L 8 MEQ/L Estimat Glomerular Filtration Rate 50 ML/MIN 50 ML/MIN C-Reactive Protein 13.00 MG/DL Microbiology Date/Time Source Procedure Growth Status 07/16/17 15:18 Fluid Synovial Fluid Gram Stain - Final Complete 07/16/17 15:18 Body Fluid Culture - Final Staphylococcus Aureus Complete 07/18/17 11:30 Genital Cervix Neisseria gonorrhoeae Culture Pending Received Imaging Last Impressions Soft Tissue Ultrasound 07/18/17 0000 Signed Impressions: Service Date/Time: June 15:11 - CONCLUSION: Heterogeneous mass/collection Chuy King MD Brain MRI 07/16/17 1124 Signed Impressions: Service Date/Time: Sunday, July 16, 2017 11:38 - CONCLUSION: 1. Focal area of edema with at least 2 areas of central ring enhancement. Findings could represent both neoplastic and infectious processes. Considering the reported history, I favor the latter. 2. Lesion appears to be isolated. No midline shift. Ihsan Garvin MD Lumbar Spine MRI 07/16/17 0000 Signed Impressions: Service Date/Time: Sunday, July 16, 2017 11:38 - CONCLUSION: Cannot exclude discitis involving L5-S1. Possible right renal infarction versus focal pyelonephritis. Free fluid in the pelvis. Chuy King MD Hip Aspiration/Injection 07/16/17 Signed Impressions: Service Date/Time: Sunday, July 16, 2017 14:08 - CONCLUSION: Uncomplicated aspiration as above. Arpan Gilliland MD Chest X-Ray 07/16/17 Signed Impressions: Service Date/Time: Sunday, July 16, 2017 10:56 - CONCLUSION: Diffuse worsening of bilateral scattered cavitary pulmonary infiltrates throughout both lung schwab compared to the prior studies. Yemi Maradiaga MD Abscess Drainage X-Ray 07/16/17 Signed Impressions: Service Date/Time: Sunday, July 16, 2017 14:46 - CONCLUSION: A region of decreased, irregular echogenicity was identified corresponding to the area the patient's known abscess. This did not appear to represent a well-circumscribed fluid collection or ultrasound. No fluid could be aspirated from this. Arpan Gilliland MD Hip MRI 07/15/17 0000 Signed Impressions: Service Date/Time: Saturday, July 15, 2017 17:29 - CONCLUSION: 1. No evidence for osteomyelitis. 2. Small to moderate-sized right hip joint effusion which does not enhance significantly post contrast. 3. 5.1 x 1.9 cm presumed small muscular abscess in the proximal left thigh adjacent to the left femoral head. 4. Extensive subcutaneous and deep tissue edema bilaterally in the pelvis, probably related to anasarca. Sebastien Moore MD Lower Extremity Ultrasound 07/14/17 Signed Impressions: Service Date/Time: Friday, July 14, 2017 11:50 - CONCLUSION: Normal examination. Dang Bahena MD Hip and Pelvis X-Ray 07/14/17 Signed Impressions: Service Date/Time: Friday, July 14, 2017 14:51 - CONCLUSION: Unremarkable examination of the right hip. Dang Bahena MD Renal Ultrasound 07/11/17 0000 Signed Impressions: Service Date/Time: June 09:00 - CONCLUSION: 1. No acute findings. Mildly increased renal echogenicity characteristic of medical renal disease. Sebastien Moore MD CT Angiography 07/10/17 0000 Signed Impressions: Service Date/Time: Monday, July 10, 2017 19:34 - CONCLUSION: 1. No pulmonary embolus. 2. Widespread patchy cavitary pneumonia of both lungs and probably on the basis of septic emboli. 3. Nonspecific hepatosplenomegaly. 4. Probable tricuspid regurgitation. Chuy Yang MD Physical Exam CONSTITUTIONAL/GENERAL: This is an adequately nourished patient, quite SOB, on 3 L of NC O2 TUBES/LINES/DRAINS: SKIN: No jaundice, rashes, or lesions. Ecchymoses on upper extremities. No wounds seen anteriorly. Skin temperature appropriate. Not diaphoretic. On exam: SKIN with needle alvarez and multiple embolic lesions involving fingers, toes soles and palpms L thumb and L hallux evolving large embolic lesions L thumb tip - necrotic EYES: Pupils equal and round and reactive. Extraocular motions intact. No scleral icterus. No injection or drainage. Fundi not examined. CARDIOVASCULAR: Regular tachycardia + 1-2/6 holosystolic murmur S1S2 present no gallops, or rubs. No JVD. Peripheral pulses symmetric. RESPIRATORY/CHEST: Symmetric, unlabored respirations. Clear to auscultation. Breath sounds equal bilaterally. No wheezes, rales, or rhonchi. GASTROINTESTINAL: Abdomen soft, non-tender, nondistended. No hepato-splenomegaly , or palpable masses. No guarding. Bowel sounds present. MUSCULOSKELETAL: Extremities without clubbing, cyanosis, +3-4 BLE edema. No joint tenderness or effusion noted. No calf tenderness. No mottling or clubbing. LYMPHATICS: No palpable cervical or supraclavicular adenopathy.lear speech NEUROLOGICAL: Awake and alert. Motor and sensory grossly within normal limits. Follows commands. Clear speech. Moves all extremities. PSYCHIATRIC: No obvious anxiety/depression. no apparent hallucinations or other psychotic thought process. L Assessment & Plan Remarks TV endocarditis with PFO , MSSA with multiple systemic embolic lesions, including brain - PFO will explain systemic emboli in this pt Red man sd to vancomycin L5S1 diskitis Vir strep bacteremia - also likley 2/2 endocarditis 5.1 x 1.9 cm presumed small muscular abscess in the proximal left thigh adjacent to the left femoral head. Active IV user with high risk for sugery 2/2 it Prohibitive surgery risk per CTS eval Very poor prognosis. Palliative involved Plan: cont Oxacillin repeat serial blood clx utill final monitor for systemic emboli Pt though has TV endocarditis is expected to have possibly complications of L sided endocarditis 2/2 PFO incluiding septic emboli to brain juan antonio romano family including mother, grand father and stepfather Shana Mosley MD Jul 18, 2017 18:09
--- NOTE | 2017-07-18 18:14 | PD.CONS ---
Consult Service Palliative Care . Consult Requested By Dr. Harvey . Primary Care Physician Julia Park MD . Reason for Consultation a. To assist with evaluation and management of symptoms including: pain; cough; dyspnea; confusion b. To assist medical decision maker(s) with: better understanding of current medical conditions; weighing benefits/burdens of medical treatment options; making medical treatment decisions. . HPI History of Present Illness Ms. Zee is an unfortunate 26 y/o female with a history of IV drug abuse who presented to [facility] ER on 07/10/17 with generalized myalgias and dyspnea as well as subjective fevers and chills.. 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 The patient admitted to using intravenous heroin. The patient's hospital course has been complicated by a patent foramen ovale. As a result of this she has had septic emboli that are both right-sided and systemic. She has multiple bilateral pulmonary septic emboli; left thigh muscle abscess; right hip involvement; brain abscesses (MRI shows 2 areas of central ring enhancement); L5-S1 discitis; ischemic areas to multiple digits on hands and feet; and pyelonephritis/renal infarction. Echocardiogram has confirmed vegetations on the tricuspid valve, a patent foramen ovale, severe tricuspid regurgitation, as well as significant pulmonary hypertension. Cultures have grown out harrington sensitive staph aureus. The patient complains of significant pain involving multiple locations. Pain averages at a #8 intensity, frequently goes up to #10, and with opiates will get down only as low as a #7.. Worst areas of pain are her low back; right hip; bottoms of her feet (worse with weightbearing); and her shoulders. Her back pain is significantly worse with coughing. Pain is primarily being controlled with oral oxycodone at 10 mg every 4 hours as needed. She also has an order for parenteral morphine sulfate at 2 mg every 4 hours IV push . The patient also has dyspnea with even minor exertion. Just getting out of bed to use the bedside commode and then back into bed completely wind her. There is frequent coughing and she is bringing up blood tinged phlegm. Hemoglobin fell as low as 6.8 on 07/16/17 and the patient has required 2 units of packed red blood cells. In addition to hemoptysis she is having some vaginal bleeding. Ms. Zee had considerable kidney dysfunction on arrival with a creatinine of 4.56 and an estimated GFR of 12. Kidney function has improved and creatinine is now 1.28 with GFR of 50. The patient's nutritional status has been quite poor; at the time of admission her albumin was 1.8 and it is currently 1.3. HIV and hepatitis serology have been negative.. The patient was previously hospitalized here from 12/07/2016 through 2016. During that admission, her transesophageal echocardiogram from 12/11/16 also showed a tricuspid vegetation. The patient was discharged and continued to receive intravenous antibiotics as an outpatient at the infusion center. She was reportedly compliant with this regimen and completed her antibiotics on 01/10/17. She was readmitted however from 01/16/17 through 01/25/17 with chest pain and dyspnea on exertion. Transthoracic echo (not trans-esophageal) performed at that time showed severe tricuspid regurgitation, elevated pulmonary pressures, and a small pericardial effusion. Blood cultures were negative. CT angiogram showed pulmonary emboli in the right lower lobe with areas of consolidation and cavitary changes similar to what was seen in November. She was ultimately discharged on Zithromycin and Aurmentin which she was instructed to take /02/17. . Function/Cognitive Trajectory Patient reportedly was fully functional without limitations to her activities prior to her initial hospitalization of 11/2016. . Review of Systems Constitutional: COMPLAINS OF: Fatigue, Fever, Weight gain, Change in appetite, Pain, Generalized weakness, Sleep problems, DENIES: Weight loss Endocrine: DENIES: Polydipsia, Polyuria, Polyphagia Eyes: DENIES: Diplopia, Eye pain Ears, nose, mouth, throat: DENIES: Tinnitus, Throat pain, Epistaxis Respiratory: COMPLAINS OF: Cough, Snoring, Hemoptysis, Sputum production, Shortness of breath Cardiovascular: COMPLAINS OF: Chest pain, Dyspnea on Exertion, Lower Extremity Edema, DENIES: Palpitations, Syncope, PND Gastrointestinal: COMPLAINS OF: Diarrhea, DENIES: Black stools, Constipation, Nausea, Vomiting, Difficulty Swallowing Genitourinary: COMPLAINS OF: Abnormal vaginal bleeding, DENIES: Urinary frequency, Urinary incontinence, Dysuria Musculoskeletal: COMPLAINS OF: Joint pain, Muscle aches, Joint Swelling, Back pain, Neck pain Integumentary: COMPLAINS OF: Abnormal pigmentation, Non-healing sores, DENIES: Rash Hematologic/Lymphatics: COMPLAINS OF: Bruising, Prolonged bleed w/ proced, History of transfusions Immunologic/Allergic: DENIES: Eczema, Urticaria Neurologic: DENIES: Headache, Localized weakness, Paresthesias, Seizures Psychiatric: COMPLAINS OF: Anxiety, Confusion, DENIES: Hallucinations Past Family Social History Coded Allergies: vancomycin (Verified Allergy, Intermediate, Rash, 07/10/17) Past Medical History History of intravenous drug abuse History of tricuspid endocarditis first diagnosed in 11/2016 History of pulmonary septic emboli in November and December 2016 known history of tricuspid Regurgitation Pulmonary hypertension IV drug use . Past Surgical History No prior surgeries. . Reported Medications Patient was on no prescription medications leading up to this hospitalization. . Current Medications Medications (Trade) Dose Ordered Sig/Gary Route Start Time Stop Time Status Last Admin (NS Flush) 2 ml UNSCH PRN IV FLUSH 07/10/17 21:00 07/18/17 16:51 (NS Flush) 2 ml BID IV FLUSH 07/10/17 21:00 07/18/17 08:49 (Tylenol) 650 mg Q4H PRN PO 07/10/17 21:00 07/14/17 02:33 (Zofran Inj) 4 mg Q6H PRN IVP 07/10/17 21:00 07/14/17 18:12 (Narcan Inj) 0.4 mg UNSCH PRN IV PUSH 07/10/17 21:00 (Milk Of Magnesia Liq) 30 ml Q12H PRN PO 07/10/17 21:00 (Senokot) 17.2 mg Q12H PRN PO 07/10/17 21:00 (Dulcolax Supp) 10 mg DAILY PRN RECTAL 07/10/17 21:00 (Lactulose Liq) 30 ml DAILY PRN PO 07/10/17 21:00 (Zeeland Hernando) 1 lozenge Q1H PRN BUCCAL 07/11/17 09:00 07/13/17 14:48 (Tessalon) 200 mg Q8H PRN PO 07/11/17 09:00 07/18/17 14:35 (KlonoPIN) 1 mg BID PO 07/11/17 09:00 07/18/17 08:48 (Bactroban 2% Oint) 1 applic Q8HR TOPICAL 07/11/17 09:00 07/18/17 06:00 (Blistex Lip [place]) 1 applic 5 TIMES A DAY PRN TOPICAL 07/11/17 09:00 07/11/17 17:57 (Zofran Inj) 4 mg Q6H PRN IV PUSH 07/11/17 09:00 07/18/17 16:51 (Oscal) 500 mg DAILY PO 07/11/17 10:15 07/18/17 08:48 Oxacillin Sodium 2 gm/Sodium Chloride 100 ml @ 200 mls/hr Q4H IV 07/11/17 23:00 07/18/17 14:36 (Atrovent Neb) 0.5 mg Q4HR NEB NEB 07/12/17 00:00 07/18/17 15:48 (Ativan) 1 mg Q6H PRN PO 07/14/17 14:15 (Roxicodone) 5 mg Q4H PRN PO 07/15/17 11:15 (Roxicodone) 10 mg Q4H PRN PO 07/15/17 11:15 07/18/17 14:32 (Tylenol) 650 mg Q4H PRN PO 07/16/17 07:30 (Benadryl) 25 mg Q4H PRN PO 07/16/17 07:30 (Morphine Inj) 2 mg Q4H PRN IV PUSH 07/16/17 13:30 07/17/17 15:56 (Mycostatin Powder) 1 applic Q12HR TOPICAL 07/18/17 11:45 (Lasix Inj) 40 mg BID@09,18 IV PUSH 07/18/17 18:00 Sodium Chloride 250 ml @ 15 mls/hr ONCE ONCE IV 07/18/17 16:00 07/19/17 08:39 (Tylenol) 650 mg Q4H PRN PO 07/18/17 16:00 (Benadryl) 25 mg Q4H PRN PO 07/18/17 16:00 . Family History Maternal grandmother had lung cancer Paternal grandfather has CAD and is s/p SC Paternal GM with Type II DM. Mother and father A&W. 2 sisters and 1 brother A&W . Substance Use Tobacco: Smoked 1/2 ppd for 5 years. !Quit in 2014. Does episodic "vaping." Alcohol:No hx of abuse. Prescription med abuse: No known abuse. Illicits: Hx of IV drug abuse and cocaine. Had completed outpt rehab in [place], [place], was clear for a while after 2014 and attended online meetings. Had a couple of relapses causing the endocarditis. . Psychosocial History Patient is originally from [place], [place] She has lived in [place] since 2007. 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 Patient has not been employed in some time. She has been ill since November 2016. Patient most recently has been living with her grandparents. Her parents are . Her mother lives in the [facility] area. Her biological father lives in the [place] area. The patient has never been and has no children. Patient has 2 sisters and one brother . Spiritual/Cultural Factors Advent and spirituality have played an important role in her life. Declines fire claims adjuster visits. . Living Will: Never completed Health Care Surrogate: Never completed Durable Power of Manager Clinical Pharmacy: Never completed Date completed: Never completed. . Health Care Surrogate(s): There is no written designation of health care surrogate. Patient has verbally requested that her grandfather -- Kendall Arellano -- serve as her health care surrogate. . Documented care wishes: No written documentation of health care preferences/wishes . Today's verbally stated goals: Patient drifts off easily and is unable to give coherent goals of medical treatment at this time. . Family/friends goals: Spoke at length with patient's grandfather, mother, and stepfather. They would like to continue aggressive care at this time. Given the patient's prognosis, however, they would not want her prolonged on life support should the doctors feel that her condition is terminal. . Ethical and Legal Issues Patient easily fatigues and has periods when she is less lucid, but most of the time while awake appears to be able to make her own healthcare decisions. I would encourage joint decision making for major decisions with her healthcare surrogate. . Physical Exam Vital Signs Date Time Temp Pulse Resp B/P (MAP) Pulse Ox O2 Delivery O2 Flow Rate FiO2 07/18/17 16:00 100.0 115 17 115/67 (83) 94 07/18/17 15:48 97 Nasal Cannula 2.00 07/18/17 12:00 99.7 101 18 107/64 (78) 97 07/18/17 11:00 20 07/18/17 08:45 Nasal Cannula 2.00 07/18/17 08:36 95 Nasal Cannula 2.00 07/18/17 08:00 98.3 121 19 115/70 (85) 92 07/18/17 04:00 99.7 118 18 112/64 (80) 95 07/18/17 00:00 100.2 120 18 123/76 (92) 98 07/17/17 20:53 95 Nasal Cannula 3.00 07/17/17 20:00 99.8 116 18 102/64 (77) 94 07/17/17 20:00 Nasal Cannula 3.00 . 07/18/17 07/18/17 07/19/17 15:00 23:00 07:00 Intake Total 960 ml Output Total 400 ml Balance 560 ml Intake Oral 960 ml Output Urine Total 400 ml # Bowel Movements 0 . Exam CONSTITUTIONAL/GENERAL: This is an adequately nourished patient in a [facility] bed. She is conversant, but easily drifts to sleep. there is a frequent productive cough. she is dyspneic with exertion. There is some generalized edema. TUBES/LINES/DRAINS: Peripheral IVs SKIN: No jaundice, rashes. . Skin temperature appropriate. Not diaphoretic. Numerous embolic type ischemic appearing lesions on fingers, toes, soles.. There is a left medial leg wound. There is some generalized edema. HEAD: Atraumatic. Normocephalic. EYES: Pupils equal and round and reactive. Extraocular motions intact. No scleral icterus. No injection or drainage. Fundi not examined. ENT: Hearing grossly normal. Nose without bleeding or purulent drainage. Throat without visible erythema, exudates, masses, or lesions. NECK: Trachea midline. Supple, nontender. No palpable thyroid enlargement or nodularity. CARDIOVASCULAR: Regular rate and rhythm without gallops, or rubs. 2/6 systolic murmur. No JVD. RESPIRATORY/CHEST: Symmetric, unlabored respirations. Breath sounds equal bilaterally but diminished. No wheezes. Bilateral crackles worse on left. GASTROINTESTINAL: Abdomen soft, non-tender, nondistended. No hepato-splenomegaly , or palpable masses. No guarding. Bowel sounds present. GENITOURINARY: Without palpable bladder distension. MUSCULOSKELETAL: Extremities with the multiple embolic lesions on fingers, toes , soles. Generalized edemia in upper and lower extremities. . No calf tenderness. No mottling or clubbing. LYMPHATICS: No palpable cervical or supraclavicular adenopathy. NEUROLOGICAL: Conversant, but intermittently nods off even when trying to answer a question. Motor and sensory grossly within normal limits. Follows commands. Cognitively sharp until she gets drowsy. PSYCHIATRIC: No obvious anxiety/depression. No apparent hallucinations or other psychotic thought process. . Diagnostic Tests Laboratory Laboratory Tests Test 07/16/17 05:28 07/16/17 08:45 07/16/17 10:11 07/16/17 13:42 White Blood Count 11.9 TH/MM3 (4.0-11.0) Red Blood Count 2.32 MIL/MM3 (4.00-5.30) Hemoglobin 6.8 GM/DL (11.6-15.3) Hematocrit 20.2 % (35.0-46.0) Mean Corpuscular Volume 87.1 FL (80.0-100.0) Mean Corpuscular Hemoglobin 29.1 PG (27.0-34.0) Mean Corpuscular Hemoglobin Concent 33.4 % (32.0-36.0) Red Cell Distribution Width 16.8 % (11.6-17.2) Platelet Count 136 TH/MM3 (150-450) Mean Platelet Volume 6.9 FL (7.0-11.0) Erythrocyte Sedimentation Rate GREATER THAN 140 mm/hr Blood Urea Nitrogen 22 MG/DL (7-18) Creatinine 1.20 MG/DL (0.50-1.00) Random Glucose 85 MG/DL (74-106) Total Protein 6.7 GM/DL (6.4-8.2) Albumin 1.4 GM/DL (3.4-5.0) Calcium Level 8.1 MG/DL (8.5-10.1) Alkaline Phosphatase 189 U/L (45-117) Aspartate Amino Transf (AST/SGOT) 24 U/L (15-37) Alanine Aminotransferase (ALT/SGPT) 20 U/L (10-53) Total Bilirubin 1.5 MG/DL (0.2-1.0) Sodium Level 132 MEQ/L (136-145) Potassium Level 4.7 MEQ/L (3.5-5.1) Chloride Level 103 MEQ/L (98-107) Carbon Dioxide Level 19.4 MEQ/L (21.0-32.0) Anion Gap 10 MEQ/L (5-15) Estimat Glomerular Filtration Rate 54 ML/MIN (>89) C-Reactive Protein 13.00 MG/DL (0.00-0.30) Prothrombin Time 12.5 SEC (9.8-11.6) Prothromb Time International Ratio 1.2 RATIO Activated Partial Thromboplast Time 23.6 SEC (24.3-30.1) Fibrinogen 458 mg/dL (227-377) Blood Gas Puncture Site RT RADIAL Blood Gas Patient Temperature 98.6 Blood Gas HCO3 21 mmol/L (22-26) Blood Gas Base Excess -3.0 mmol/L (-2-2) Blood Gas Oxygen Saturation 95 % (90-100) Arterial Blood pH 7.43 (7.380-7.420) Arterial Blood Partial Pressure CO2 31 mmHg (38-42) Arterial Blood Partial Pressure O2 83 mmHg (61-120) Arterial Blood Oxygen Content 8.8 Vol % (12.0-20.0) Arterial Blood Carboxyhemoglobin 1.9 % (0-4) Arterial Blood Methemoglobin 0.6 % (0-2) Blood Gas Hemoglobin 6.5 G/DL (12.0-16.0) Oxygen Delivery Device NASAL CANNULA Blood Gas Liter Flow 6 L/M Test 07/16/17 15:18 07/17/17 06:50 07/17/17 22:56 07/18/17 07:38 Synovial Fluid Color YELLOW (STRAW) Synovial Fluid Appearance MODERATE (CLEAR) Synovial Fluid WBC 1860 /MM3 (0-200) Synovial Fluid RBC 310 /MM3 (0-0) Synovial Fluid Neutrophils 97 % (0-25) Synovial Fluid Lymphocytes 1 % Synovial Fluid Monocytes 2 % Synovial Fluid Differential Comment White Blood Count 11.2 TH/MM3 (4.0-11.0) 8.3 TH/MM3 (4.0-11.0) Red Blood Count 2.59 MIL/MM3 (4.00-5.30) 2.34 MIL/MM3 (4.00-5.30) Hemoglobin 7.5 GM/DL (11.6-15.3) 7.3 GM/DL (11.6-15.3) 7.0 GM/DL (11.6-15.3) Hematocrit 21.8 % (35.0-46.0) 20.5 % (35.0-46.0) 20.1 % (35.0-46.0) Mean Corpuscular Volume 84.3 FL (80.0-100.0) 85.9 FL (80.0-100.0) Mean Corpuscular Hemoglobin 29.0 PG (27.0-34.0) 29.8 PG (27.0-34.0) Mean Corpuscular Hemoglobin Concent 34.4 % (32.0-36.0) 34.7 % (32.0-36.0) Red Cell Distribution Width 17.5 % (11.6-17.2) 17.2 % (11.6-17.2) Platelet Count 156 TH/MM3 (150-450) 166 TH/MM3 (150-450) Mean Platelet Volume 6.7 FL (7.0-11.0) 7.2 FL (7.0-11.0) Neutrophils (%) (Auto) 87.3 % (16.0-70.0) 84.2 % (16.0-70.0) Lymphocytes (%) (Auto) 7.9 % (9.0-44.0) 9.1 % (9.0-44.0) Monocytes (%) (Auto) 4.1 % (0.0-8.0) 5.7 % (0.0-8.0) Eosinophils (%) (Auto) 0.3 % (0.0-4.0) 0.4 % (0.0-4.0) Basophils (%) (Auto) 0.4 % (0.0-2.0) 0.6 % (0.0-2.0) Neutrophils # (Auto) 9.7 TH/MM3 (1.8-7.7) 7.0 TH/MM3 (1.8-7.7) Lymphocytes # (Auto) 0.9 TH/MM3 (1.0-4.8) 0.8 TH/MM3 (1.0-4.8) Monocytes # (Auto) 0.5 TH/MM3 (0-0.9) 0.5 TH/MM3 (0-0.9) Eosinophils # (Auto) 0.0 TH/MM3 (0-0.4) 0.0 TH/MM3 (0-0.4) Basophils # (Auto) 0.0 TH/MM3 (0-0.2) 0.1 TH/MM3 (0-0.2) CBC Comment DIFF FINAL DIFF FINAL Differential Comment Blood Urea Nitrogen 21 MG/DL (7-18) 22 MG/DL (7-18) Creatinine 1.27 MG/DL (0.50-1.00) 1.28 MG/DL (0.50-1.00) Random Glucose 114 MG/DL (74-106) 100 MG/DL (74-106) Total Protein 6.4 GM/DL (6.4-8.2) 6.4 GM/DL (6.4-8.2) Albumin 1.3 GM/DL (3.4-5.0) 1.3 GM/DL (3.4-5.0) Calcium Level 7.6 MG/DL (8.5-10.1) 7.5 MG/DL (8.5-10.1) Alkaline Phosphatase 159 U/L (45-117) 187 U/L (45-117) Aspartate Amino Transf (AST/SGOT) 22 U/L (15-37) 21 U/L (15-37) Alanine Aminotransferase (ALT/SGPT) 16 U/L (10-53) 15 U/L (10-53) Total Bilirubin 1.4 MG/DL (0.2-1.0) 1.1 MG/DL (0.2-1.0) Sodium Level 133 MEQ/L (136-145) 131 MEQ/L (136-145) Potassium Level 4.3 MEQ/L (3.5-5.1) 4.5 MEQ/L (3.5-5.1) Chloride Level 101 MEQ/L (98-107) 100 MEQ/L (98-107) Carbon Dioxide Level 25.1 MEQ/L (21.0-32.0) 22.6 MEQ/L (21.0-32.0) Anion Gap 7 MEQ/L (5-15) 8 MEQ/L (5-15) Estimat Glomerular Filtration Rate 50 ML/MIN (>89) 50 ML/MIN (>89) C-Reactive Protein 13.00 MG/DL (0.00-0.30) Test 07/18/17 11:35 Hemoglobin 8.5 GM/DL (11.6-15.3) Hematocrit 25.0 % (35.0-46.0) . Result Diagram: 07/18/17 1135 07/18/17 0738 Microbiology Microbiology Date/Time Source Procedure Growth Status 07/16/17 15:18 Fluid Synovial Fluid Gram Stain - Final Complete 07/16/17 15:18 Body Fluid Culture - Final Staphylococcus Aureus Complete 07/18/17 11:30 Genital Cervix Neisseria gonorrhoeae Culture Pending Received . Imaging Last Impressions Soft Tissue Ultrasound 07/18/17 0000 Signed Impressions: Service Date/Time: June 15:11 - CONCLUSION: Heterogeneous mass/collection Chuy King MD Brain MRI 07/16/17 1124 Signed Impressions: Service Date/Time: Sunday, July 16, 2017 11:38 - CONCLUSION: 1. Focal area of edema with at least 2 areas of central ring enhancement. Findings could represent both neoplastic and infectious processes. Considering the reported history, I favor the latter. 2. Lesion appears to be isolated. No midline shift. Ihsan Garvin MD Lumbar Spine MRI 07/16/17 0000 Signed Impressions: Service Date/Time: Sunday, July 16, 2017 11:38 - CONCLUSION: Cannot exclude discitis involving L5-S1. Possible right renal infarction versus focal pyelonephritis. Free fluid in the pelvis. Chuy King MD Hip Aspiration/Injection 07/16/17 0000 Signed Impressions: Service Date/Time: Sunday, July 16, 2017 14:08 - CONCLUSION: Uncomplicated aspiration as above. Arpan Gilliland MD Chest X-Ray 07/16/17 0000 Signed Impressions: Service Date/Time: Sunday, July 16, 2017 10:56 - CONCLUSION: Diffuse worsening of bilateral scattered cavitary pulmonary infiltrates throughout both lung schwab compared to the prior studies. Yemi Maradiaga MD Abscess Drainage X-Ray 07/16/17 0000 Signed Impressions: Service Date/Time: Sunday, July 16, 2017 14:46 - CONCLUSION: A region of decreased, irregular echogenicity was identified corresponding to the area the patient's known abscess. This did not appear to represent a well-circumscribed fluid collection or ultrasound. No fluid could be aspirated from this. Arpan Gilliland MD Hip MRI 07/15/17 0000 Signed Impressions: Service Date/Time: Saturday, July 15, 2017 17:29 - CONCLUSION: 1. No evidence for osteomyelitis. 2. Small to moderate-sized right hip joint effusion which does not enhance significantly post contrast. 3. 5.1 x 1.9 cm presumed small muscular abscess in the proximal left thigh adjacent to the left femoral head. 4. Extensive subcutaneous and deep tissue edema bilaterally in the pelvis, probably related to anasarca. Sebastien Moore MD Lower Extremity Ultrasound 07/14/17 0000 Signed Impressions: Service Date/Time: Friday, July 14, 2017 11:50 - CONCLUSION: Normal examination. Dang Bahena MD Hip and Pelvis X-Ray 07/14/17 0000 Signed Impressions: Service Date/Time: Friday, July 14, 2017 14:51 - CONCLUSION: Unremarkable examination of the right hip. Dang Bahena MD Renal Ultrasound 07/11/17 0000 Signed Impressions: Service Date/Time: June 09:00 - CONCLUSION: 1. No acute findings. Mildly increased renal echogenicity characteristic of medical renal disease. Sebastien Moore MD CT Angiography 07/10/17 0000 Signed Impressions: Service Date/Time: Monday, July 10, 2017 19:34 - CONCLUSION: 1. No pulmonary embolus. 2. Widespread patchy cavitary pneumonia of both lungs and probably on the basis of septic emboli. 3. Nonspecific hepatosplenomegaly. 4. Probable tricuspid regurgitation. Chuy Yang MD . Procedures . Patient/Family Conference Present at Family Conference: Initially spoke at bedside with patient, Mother , stepfather, grandfather, and grandmother. With patient's permission, I subsequently spoke privately with mother, stepfather, and grandfather. . Family Conference Time (mins): 60 Family Conference Location: Bedside, Hallway Issues Discussed: * Palliative care role, purpose, approach * Additional medical, psychosocial, and spiritual history * Patients general health, functional status, and cognitive changes in the months leading up to the current hospitalization * Patient/family understanding of the current medical problems * Patient/family understanding of prognosis * Current medical treatment options and benefits/burdens of those options * Questions answered to the best of my ability * Palliative care contact information provided . Patient did not appear to have an understanding of the seriousness of her situation. She was too drowsy to discuss this in detail. When asked what the other doctors had told her about her condition she said, "I know my kidneys are getting better." I spoke at length with mother, stepfather, and grandfather. They are now aware that even though she is out of ICU, she remains very ill. We discussed her heart failure and the challenge of diuresing here w/o further hurting kidneys. We discussed the risk of ongoing bleeding (she currently has hemoptysis and vaginal bleeding). We discussed the risk of additional embolic phenomena including major stroke. We discussed our inability to perform surgery now. We discussed how even with the right antibiotics we may not be able to eradicate the bacteria. We discussed some of the decisions that may need to be made should her situation get worse. . Assessment and Plan Disease Oriented Problem List: (1) Endocarditis of tricuspid valve (2) Severe sepsis with acute organ dysfunction due to Staphylococcus species (3) Discitis (4) Muscle abscess (5) Cerebral abscess (embolic) (6) severe TR (7) Vaginal bleeding (8) Anasarca (9) Septic arthritis of hip (10) Cavitary pneumonia (11) ENRICO (acute kidney injury) (12) Hemoptysis (13) Anemia (14) Hypoalbuminemia Symptom Scale: (1) Pain 0-10 Scale: 9 Comment: The patient complains of significant pain involving multiple locations. Pain averages at a #8 intensity, frequently goes up to #10, and with opiates will get down only as low as a #7.. Worst areas of pain are her low back; right hip; bottoms of her feet (worse with weightbearing); and her shoulders. Her back pain is significantly worse with coughing. Pain is primarily being controlled with oral oxycodone at 10 mg every 4 hours as needed. She also has an order for parenteral morphine sulfate at 2 mg every 4 hours IV push . . (2) Dyspnea 0-10 Scale: Unable to quantify Comment: The patient also has dyspnea with even minor exertion. Just getting out of bed to use the bedside commode and back into bed completely wind her. There is frequent coughing and she is bringing up blood tinged phlegm. . (3) Cough 0-10 Scale: Unable to quantify Comment: Cough is severe and exacerbates back pain. Cough is producing blood tinged phlegm. . (4) Confusion 0-10 Scale: Unable to quantify Comment: Confusion is intermittent. Pertinent Non-Medical Issues Psychosocial: Hx of IV drug abuse. Has been living with grandparents. Mother lives outside [facility] with pt's stepfather. Biological father lives in [place]. Spiritual: Advent and spirituality have not played an important role in her life. Correction Lieutenant services have been declined. Legal: No advance directives. Ethical issues impacting care: No apparent ethical issues . Important Contacts Kendall Adan (grandparent and verbally designated health care surrogate) Yuly Adan (grandparent) [phone] . Prognosis Grim prognosis is best understood from the note of Dr. Federico Almanza (critical care) from 07/17/17... 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 Care is immensely complicated because of a patent foramen ovale and pulmonary hypertension. Paradoxical septic emboli have seeded multiple organs including brain, skin, lungs. The numerous lung abscesses alone are terminal and will eventually result in massive hemoptysis. The untreated severe tricuspid insufficiency will produce intractable ascites and skin ulceration of the lower extremities unless we push chemical diuresis to the point of renal failure and institute dialysis for fluid balance control. Several digits are already at risk for amputation. She is absolutely not a candidate for valve replacement surgery because of the high risk for hemoptysis and cerebral hemorrhage when anticoagulated for cardiopulmonary bypass (Heparin 30,000 unit). Closure of the PFO is contraindicated because of the risk of placing prosthetic material adjacent to a vegetation. This is terminal condition and she will not survive 6 months from today. The organism is highly sensitive and she may well have a brief period of clinical improvement, but destruction of the involved valve will progress and the complications of peripheral edema with ulceration, intractable ascites, right heart failure, low cardiac output, and renal failure will eventuate. A sudden stroke or massive hemoptysis may shorten this trajectory considerably. I would like to have the recommendations of the Palliative Care team to assist with advising this patient and her family." . Code Status: Full Code Plan == Code Status: FULL CODE. Patient was not awake and alert enough to directly discuss code status at time of my visit. Will need to try again. She remains full code for the time being. == Decision making: Patient would drift off to sleep periodically during my visit, but when awake she appeared cognitively intact. Family notes intermittent confusion. She seemed to have little appreciation for how seriously ill she was when I spoke with her. I will re-evaluate for capacity. I recommend that for significant decision making we encourage "shared decisions " with patient and her grandfather -- Kendall Arellano. Patient has not completed a written designation of health care surrogate, but has verbally designated her grandfather to serve in that capacity. == Goals of medical treatment: Until I can have a more substantial conversation with the patient, I encourage full aggressive care including resuscitation attempts it needed. Family, at this time would want an attempted resuscitation but are clear that they would not want her maintained on life support if the doctors felt there was little chance of meaningful recovery. == Symptoms * Though patient rarely has pain levels below #7 even with her current opiate regimen, I am reluctant to increase opioids while goals remain very aggressive. She already is lethargic at times and has intermittent confusion and we want to be able to observe neuro changed. * Dyspnea: Her SOB is likely due to her multiple septic lesions throughout both lungs. Opiates and benzos would certainly help relieve her sense of dyspnea, but as noted above, I am reluctant to recommend any increases in sedating meds while the goals are aggressive. * Cough: Patient has hemoptysis. I would like her to be able to clear some of these secretions. Her current opiate regiment is a fairly effective cough suppressant. If additional cough suppression is needed would recommend dextromethorphan rather than additional opiates. * Confusion: This is probably a multi-factorial encephalopathy from her septic brain lesions, poor nutrition, medication, etc. == When patient is more wakeful, I plan to... * Re-assess her capacity to make her own health care decisions. * See if she is able to truly understand how ill she is and her prognosis. * Re-address code status. * Have her complete a designation of health care surrogate. * Discuss comfort oriented options (e.g. hospice) should she continue to decline. == Palliative care will continue to follow to assist with symptom management and further clarify goals of medical treatment as the clinical course evolves. . Time Spent Total Floor Time (mins): 95 (Total floor time included chart review; pt exam; case discussion with Dr. Mosley; above referenced pt/family discussions; documentation.) Face to Face Time (mins): 45 >50% Counseling/Coord of Care: Yes Thank you for the opportunity to participate in the care of Ms. Zee. . Attestation To help prompt me to consider important information that might be impacting today's encounter and assessment, information from prior notes written by myself or my colleagues may have been "brought forward" into today's note. My signature on this note, however, is an attestation that I personally performed the exam, history, and/or decision-making noted today, and, unless otherwise indicated, the interactions with patient, family, and staff as well as the review of records all occurred today. I also attest that the listed assessment and stated plan reflect my best clinical judgment today based on the combination of historical information, prior notes, and today's exam/ interactions. When time spent is documented, it refers only to time spent today by the signer, or if indicated, combined time spent today by collaborating physician/nurse practitioner. . Neo Sosa MD Jul 18, 2017 18:14
[2017-07-18] MEDS: FUROSEMIDE 40 MG/4 ML VIAL IV PUSH SCH (18:26)
[2017-07-19] VITALS (9 sets, daily range): BP systolic 89–109; BP diastolic 50–69; PULSE 91–126; RESP 18–20; TEMP 96.4–98.3; O2SAT 91–100
[2017-07-19] MEDS: ACETAMINOPHEN 325 MG TAB PO PRN (00:05)
[2017-07-19] MEDS: RESP: IPRATROPIUM 0.5 MG/2.5 ML NEB NEB SCH ×6 (00:56→20:00)
[2017-07-19] MEDS: OXACILLIN INJ 2 GM in SODIUM CHLORIDE 0.9% INJ 100 ML IV SCH ×6 (03:09→22:28)
[2017-07-19] MEDS: MUPIROCIN 2% OINT 22 GM TUBE TOPICAL SCH ×3 (05:21→22:00)
[2017-07-19] MEDS: BENZONATATE 100 MG CAP PO PRN ×2 (08:05→16:47)
[2017-07-19] MEDS: FUROSEMIDE 40 MG/4 ML VIAL IV PUSH SCH ×2 (10:05→16:45)
[2017-07-19] MEDS: CALCIUM CARBONATE 1.25 GM (CA 500 MG) TAB PO SCH (10:05)
[2017-07-19] MEDS: clonazePAM 1 MG TAB PO SCH ×2 (10:06→22:24)
[2017-07-19] MEDS: SODIUM CHLORIDE 0.9% FLUSH 10 ML FLUSH IV FLUSH SCH ×2 (10:06→20:05)
[2017-07-19] MEDS: NYSTATIN 100,000 U/GM PWD 15 GM BTL TOPICAL SCH ×2 (10:12→22:23)
--- NOTE | 2017-07-19 11:31 | HHI.NPPN ---
Subjective History of Present Illness 26-year-old female with history of endocarditis and IV drug use and anxiety. Presented here today from the [facility] clinic due to worsening generalized body aches, fatigue, cough, painful fingers and toes. Symptoms started about 1 week ago and have progressively worsened. Patient reports that she was previously clean rom IV drug use for 3 years but had relapse about 1 week ago. Used IV heroin. Nephrology is consulted for acute kidney injury with creatinine of 3.97 and GFR of 14 ml/min. Additional Remarks Patient is alert and oriented. SOB has improved. Edema continues. (Tasia Arvizu) Review of Systems General Constitutional: Fatigue (Tasia Arvizu) Cardiovascular Cardiac: Edema, FAULKNER (Tasia Arvizu) Objective Data Data 07/19/17 07/20/17 19:00 07:00 Intake Total 620 ml Balance 620 ml Intake Oral 240 ml Packed Cells 350 ml Blood Product IV Normal Saline Flush 30 ml Vital Signs Date Time Temp Pulse Resp B/P (MAP) Pulse Ox O2 Delivery O2 Flow Rate FiO2 07/19/17 09:26 98 Nasal Cannula 3.00 07/19/17 08:00 97.4 91 20 95/60 (72) 99 07/19/17 04:15 96.9 96 18 96/65 07/19/17 03:55 96.4 95 18 92/60 100 07/18/17 23:59 101.1 116 18 99/56 96 07/18/17 23:43 100.9 120 20 110/61 96 07/18/17 21:08 Nasal Cannula 3.00 07/18/17 20:00 101.1 115 20 98/57 (71) 97 07/18/17 16:00 100.0 115 17 115/67 (83) 94 07/18/17 15:48 97 Nasal Cannula 2.00 07/18/17 12:00 99.7 101 18 107/64 (78) 97 (Tasia Arvizu) -: 07/18/17 1135 07/18/17 0738 Microbiology 07/18/17 Neisseria gonorrhoeae Culture, Received Pending (Tasia Arvizu) Physical Exam General Appearance: No Acute Distress, Comfortable (Tasia Arvizu) Eyes Eye Exam: Pupils Equal (Tasia Arvizu) Throat Throat Exam: Oral Mucosa [place] & Moist (Tasia Arvizu) Neck Neck Exam: Neck Supple (Tasia Arvizu) Pulmonary Resp Exam: Breath Sounds Equal, No Distress, Decreased Bases (Tasia Arvizu) Cardiology CV Exam: Regular, Normal Sinus Rhythm (Tasia Arvizu) Gastrointestinal/Abdomen GI Exam: Soft, Non-Tender, Bowel Sounds Present (Tasia Arvizu) Extremeties Extremities Exam: Moderate Edema (Tasia Arvizu) Neurologic Neuro Exam: Alert, Awake (Tasia Arvizu) Psychiatric Psych Exam: Appropriate Responses (Tasia Arvizu) Assessment/Plan Problem List: (1) ENRICO (acute kidney injury) ICD Codes: N17.9 - Acute kidney failure, unspecified Plan: Renal US. No acute findings. Mildly increased renal echogenicity characteristic of medical renal disease. ENRICO most likely pre renal Creatinine stable. Baseline in 01/13 was creatinine of less than 1 Plan Creatinine is stable at 1.2 with good UOP Continue Lasix has been increased 40 mg IV BID for anasarca. Serology negative Continue antibiotics and follow the urine out put and BMP. 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 Improved now (4) Thrombocytopenia ICD Codes: D69.6 - Thrombocytopenia, unspecified Plan: improved (5) Anemia ICD Codes: D64.9 - Anemia, unspecified Status: Acute (6) Endocarditis ICD Codes: I38 - Endocarditis, valve unspecified Status: Acute (Tasia Arvizu) Problem List: (1) ENRICO (acute kidney injury) ICD Codes: N17.9 - Acute kidney failure, unspecified Plan: Renal US. No acute findings. Mildly increased renal echogenicity characteristic of medical renal disease. ENRICO most likely pre renal Creatinine stable. Baseline in 01/13 was creatinine of less than 1 Plan Creatinine is stable at 1.2 with good UOP Continue Lasix has been increased 40 mg IV BID for anasarca. Serology negative Continue antibiotics and follow the urine out put and BMP. Patient seen and examined, agree with above. Lasix increased, follow the urine out put and BMP. 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 Improved now (4) Thrombocytopenia ICD Codes: D69.6 - Thrombocytopenia, unspecified Plan: improved (5) Anemia ICD Codes: D64.9 - Anemia, unspecified Status: Acute (6) Endocarditis ICD Codes: I38 - Endocarditis, valve unspecified Status: Acute (Janak lAonso MD) Problem Qualifiers (1) Anemia: Qualified Codes: D64.9 - Anemia, unspecified (2) Endocarditis: Qualified Codes: I33.0 - Acute and subacute infective endocarditis Tasia Arvizu Jul 19, 2017 11:31 Janak Alonso MD Jul 22, 2017 19:28
--- NOTE | 2017-07-19 14:02 | HHI.FPPN ---
Subjective Remarks Family was in the room with patient today. Patient appeared to experience intermittent bouts of wakefulness followed by extreme lethargy, with the appearance of her eyes closed. Febrile overnight with a maximum temperature of 101.1. Blood pressures running from /60. Satting 98% on 3 L nasal cannula. Fluid balance+. (Rosamaria Sanford MD R1) Objective Vitals Vital Signs Date Time Temp Pulse Resp B/P (MAP) Pulse Ox O2 Delivery O2 Flow Rate FiO2 07/19/17 09:26 98 Nasal Cannula 3.00 07/19/17 08:00 97.4 91 20 95/60 (72) 99 07/19/17 04:15 96.9 96 18 96/65 07/19/17 03:55 96.4 95 18 92/60 100 07/18/17 23:59 101.1 116 18 99/56 96 07/18/17 23:43 100.9 120 20 110/61 96 07/18/17 21:08 Nasal Cannula 3.00 07/18/17 20:00 101.1 115 20 98/57 (71) 97 07/18/17 16:00 100.0 115 17 115/67 (83) 94 07/18/17 15:48 97 Nasal Cannula 2.00 I/O 07/18/17 07/18/17 07/18/17 07/19/17 07/19/17 07/19/17 06:59 14:59 22:59 06:59 14:59 22:59 Intake Total 820 ml 960 ml 890 ml 620 ml Output Total 100 ml 400 ml Balance 720 ml 560 ml 890 ml 620 ml Intake Oral 720 ml 960 ml 480 ml 240 ml IV Total 100 ml Packed Cells 350 ml 350 ml Blood Product IV Normal Saline Flush 60 ml 30 ml Output Urine Total 100 ml 400 ml # Voids 5 # Bowel Movements 0 0 (Rosamaria Sanford MD R1) Result Diagram: 07/18/17 1135 07/18/17 0738 Objective Remarks GENERAL: This is an acutely ill appearing female pt. Generally edematous. SKIN: On the medial aspect of the left lower leg there is a 1x1 cm healing lesion. No bleeding present. Multiple splinter hemorrhages on bilateral fingers and toes and surrounding ecchymosis. Small hematoma covering the tip of the left thumb with overlying superficial skin desquamation. On the right toe #1 , similar small blister hemorrhage. Posterior upper extremities and bilateral lower extremities with ecchymosis. EYES: Extraocular motions intact. ENT: Moist mucous membranes. NECK: No JVD or lymphadenopathy. CARDIOVASCULAR: Tachycardic rate with normal rhythm. Grade 3/6 systolic murmur. No carotid bruits. RESPIRATORY: Crackles bilaterally. No accessory muscle use. NC in place. GASTROINTESTINAL: Abdomen non-tender. MUSCULOSKELETAL: Edematous (pitting) extremities. Tenderness to palpation of right shoulder, pain with internal and external rotation. NEUROLOGICAL: Drowsy but arousable. Still closes her eyes during conversation but is able to stay awake. Normal speech. 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 Poor echocardiogram, severe tricuspid insufficiency, pulmonary hypertension and patent foramen ovale were noted. Widespread infection to the lungs, brain, hip, multiple skin sites, and possibly other areas of the body. Patient is progressively heading towards renal failure. She is fluid positive, with significant edema being treated w/IV lasix. Right hip joint was aspirated by IR. ID was consulted. Serial blood cultures being monitored. Nephrology, orthopedics, and cardiology were also consulted. Due to the progressive nature of the disease spread, palliative was consulted. Altered mental status worsened today. Spoke with some of her family at bedside. Explained the medical picture of the patient and the severe nature of her disease, stating that, medically speaking, mortality is expected to be likely within the next 6 months. Discussed the resources offered by palliative care. Family was interested in learning more about hospice and requested recommendations for length of time to continue aggressive treatment. Advised that patient speak further with palliative care for more resources and for making a plan for the end stages of her care. Spoke with Dr. Mosley and Dr. Sosa over the phone. The consensus is to continue IV antibiotics unless a major setback in her condition arises; will then transition to comfort measures. Will continue aggressive treatment and discussion w/family. Discharge Planning Patient is acutely ill and will likely require weeks of treatment in the hospital. Palliative was consulted. (Rosamaria Sanford MD R1) Attending Attestation Patient seen and examined. Case reviewed and discussed with the resident team. Agree with plan of care as discussed with me and documented in the resident note. Have dwpt and her family on several occasions of the poor prognosis and serious nature of her illness. I feel that after today's conversation they have all started to have a real understanding of her prognosis. I am a little concerned with her somnolence and dropping off to sleep during conversations that she may be throwing more septic emboli to the brain. It would be ideal if the patient stabilizes to be able to move her care to her home or a more comfortable setting with her IV antibiotics. Her blood cultures from 07/15 were negative. Will continue with the current plan of care. Appreciate ID and Palliative assistance with this complicated patient. (Tessie Siegel MD) Problem List: (1) Severe sepsis with acute organ dysfunction due to Staphylococcus species ICD Codes: A41.2 - Sepsis due to unspecified staphylococcus; R65.20 - Severe sepsis without septic shock Status: Acute Plan: Patient with history of endocarditis and septic pulmonary emboli 11/2016 and 12/2016. Current symptoms started after relapse with IV heroin. HIV, hepatitis panel negative Continues to meet severe sepsis secondary to tricuspid endocarditis with septic pulmonary emboli, left thigh muscle abscess, right hip joint effusion, brain abscess, L5-S1 discitis, pyelonephritis/renal infarction s/p right hip aspiration draining 4ml of yellow purulent appearing fluid on by Dr. Gilliland Unable to drain muscle abscess Leukocytosis trending down from 11.9 to 11.2 today CRP trending up from 10 to 13 ESR remains elevated >140 07/12 Sputum culture growing harrington sensitive staph aureus 07/10 urine culture growing 50-100,000 CFU/mL mixed gram positive brittni 07/10 CTA: widespread patchy cavitary pneumonia of both lung on the basis of septic emboli 07/11 Wound culture growing harrington sensitive staph aureus and beta strep Group F 07/11 Echo shows vegetation on the tricuspid valve, pulmonary valve regurg 07/10 Blood cultures staph aureus x 4 07/12 Blood cultures staph aureus and viridans strep x 2 07/14 Blood cultures staph aureus 07/15 Blood cultures no growth in 2 days 07/15 KALIN tricuspid vegetation, severe tricuspid regurg, small PFO with right to left shunt (potential source for systemic emboli) 07/16 Synovial fluid culture pending Plan: - New right shoulder pain- onset on 07/17, patient states it is beter today - Consult Oxygen Therapy Teacher- this is a terminal condition with life expectancy no more than 6 months, continue current management, consult palliative care - Orthopedic surgeon consulted- Joint effusion drained by IR, will follow cultures - ID consulted, appreciate assistance * Continue Oxacillin 2g IV Q4H (started 07/12) - Follow cultures - Con't to provide Lasix for anasarca For pain: - Oxycodone 5 mg Q4H PRN pain 3-5 - Oxycodone 10 mg Q4H PRN for pain 6-10 - Morphine 2 mg Q4H IV for pain PRN breakthrough Imagin/19 Hip MRI small moderate right hip joint effusion and small muscular abscess in the proximal left thigh adjacent to the left femoral head * CTA: No PE. Widespread patchy cavitary pneumonia both lungs and probable on the basis of septic emboli. Nonspecific hepatosplenomegaly. Probable tricuspid regurgitation. * 07/10 CXR: Patchy cavitary pneumonia, fairly stable on the right but substantially worse on the left * Lower extremity ultrasound: Negative for venous thrombosis * KALIN 07/15 confirms right-sided endocarditis with severe tricuspid regurgitation (w/mobile vegetation on tricuspid valve), moderate to severe pulmonary hypertension, and no other valvular vegetation.A patent foramen ovale is present with a [id number] shunt demonstrated by color flow Doppler interrogation. * 07/16 Brain MRI: 2 areas of central ring enhancement * 07/16 Spine MRI: discitis involving L5-S1, possible right renal infarction versus focal pyelonephritis (2) Endocarditis of tricuspid valve ICD Codes: I36.8 - Other nonrheumatic tricuspid valve disorders Status: Acute Plan: See above (3) Anemia ICD Codes: D64.9 - Anemia, unspecified Status: Acute Plan: Baseline hemoglobin around 13.1 per chart review S/p 2 units transfusion on 07/16 and on 07/18 Secondary to bleeding from multiple sites/severe infection Known sources: hemoptysis and vaginal bleeding Transfuse as needed (Hgb less than or equal to 7) , monitor daily CBCs and coag profile (4) Vaginal bleeding ICD Codes: N93.9 - Abnormal uterine and vaginal bleeding, unspecified Plan: Differential: Irregular menstrual bleeding versus infection v bleeding diathesis 2/2 endocarditis and sepsis S/p transfusion patient 2 units to 8.5 from 7.0 Cultures of endocervix ordered and pending (5) Altered mental status ICD Codes: R41.82 - Altered mental status, unspecified (6) Anasarca ICD Codes: R60.1 - Generalized edema Plan: Weight gain -> 90.5 today from 78.9 yesterday Positive fluid balance DC'd fluids Lasix IV 40 mg BID (7) Cavitary pneumonia ICD Codes: J18.9 - Pneumonia, unspecified organism; J98.4 - Other disorders of lung Status: Acute Plan: W/hemoptysis (8) Acute renal failure ICD Codes: N17.9 - Acute kidney failure, unspecified Status: Acute Plan: consult Nephrology appreciate recommendations (9) Muscle abscess ICD Codes: M62.89 - Other specified disorders of muscle Status: Acute (10) Labial swelling ICD Codes: N94.89 - Other specified conditions associated with female genital organs and menstrual cycle Plan: Unilateral, affecting the right labia Soft tissue US shows phlegmon (11) Yumiko infection of genital region ICD Codes: B37.49 - Other urogenital candidiasis Plan: Nystatin powder to 12 hours to affected site (12) IVDU (intravenous drug user) ICD Codes: F19.90 - Other psychoactive substance use, unspecified, uncomplicated Status: Chronic Plan: clonidine 0.1 mg every 6 hours when necessary for agitation (13) Nutrition, metabolism, and development symptoms ICD Codes: R63.8 - Other symptoms and signs concerning food and fluid intake Status: Acute Plan: Diet: Regular Electrolytes: continue to monitor and replete PRN Fluids: PO DVT PPX: SCDs, chemical anticoagulation contraindicated in the setting of endocarditis. (Rosamaria Sanford MD R1) Problem Qualifiers (1) Anemia: Qualified Codes: D64.9 - Anemia, unspecified (2) Altered mental status: Qualified Codes: R40.4 - Transient alteration of awareness (3) Acute renal failure: Qualified Codes: N17.9 - Acute kidney failure, unspecified Rosamaria Sanford MD R1 Jul 19, 2017 14:02 Tessie Siegel MD Jul 19, 2017 14:19
[2017-07-19] MEDS: MORPHINE SULFATE 2 MG/ML INJ IV PUSH PRN (14:36)
[2017-07-19] MEDS: SODIUM CHLORIDE 0.9% FLUSH 10 ML FLUSH IV FLUSH PRN ×2 (14:41→22:25)
--- NOTE | 2017-07-19 16:00 | HHI.IDPN ---
Subjective Subjective Remarks ambulates to b/s commode w/o assistance no fever remains on 3 L O2 NC cont to have + BC c/o L labia swelling, pain - improved c/o R hip pain, difficulty moving Antibiotics oxacillin Allergies: Coded Allergies: vancomycin (Verified Allergy, Intermediate, Rash, 07/10/17) Objective . Vital Signs Date Time Temp Pulse Resp B/P (MAP) Pulse Ox O2 Delivery O2 Flow Rate FiO2 07/19/17 14:40 16 07/19/17 12:00 97.8 97 19 94/50 (65) 96 07/19/17 09:26 98 Nasal Cannula 3.00 07/19/17 08:00 97.4 91 20 95/60 (72) 99 07/19/17 04:15 96.9 96 18 96/65 07/19/17 03:55 96.4 95 18 92/60 100 07/18/17 23:59 101.1 116 18 99/56 96 07/18/17 23:43 100.9 120 20 110/61 96 07/18/17 21:08 Nasal Cannula 3.00 07/18/17 20:00 101.1 115 20 98/57 (71) 97 07/18/17 16:00 100.0 115 17 115/67 (83) 94 07/18/17 15:48 97 Nasal Cannula 2.00 07/19/17 07/19/17 07/20/17 15:00 23:00 07:00 Intake Total 1100 ml Balance 1100 ml Intake Oral 720 ml Packed Cells 350 ml Blood Product IV Normal Saline Flush 30 ml . Laboratory Tests Test 07/17/17 22:56 07/18/17 07:38 07/18/17 11:35 Hemoglobin 7.3 GM/DL 7.0 GM/DL 8.5 GM/DL Hematocrit 20.5 % 20.1 % 25.0 % White Blood Count 8.3 TH/MM3 Red Blood Count 2.34 MIL/MM3 Mean Corpuscular Volume 85.9 FL Mean Corpuscular Hemoglobin 29.8 PG Mean Corpuscular Hemoglobin Concent 34.7 % Red Cell Distribution Width 17.2 % Platelet Count 166 TH/MM3 Mean Platelet Volume 7.2 FL Neutrophils (%) (Auto) 84.2 % Lymphocytes (%) (Auto) 9.1 % Monocytes (%) (Auto) 5.7 % Eosinophils (%) (Auto) 0.4 % Basophils (%) (Auto) 0.6 % Neutrophils # (Auto) 7.0 TH/MM3 Lymphocytes # (Auto) 0.8 TH/MM3 Monocytes # (Auto) 0.5 TH/MM3 Eosinophils # (Auto) 0.0 TH/MM3 Basophils # (Auto) 0.1 TH/MM3 CBC Comment DIFF FINAL Differential Comment Laboratory Tests Test 07/18/17 07:38 Blood Urea Nitrogen 22 MG/DL Creatinine 1.28 MG/DL Random Glucose 100 MG/DL Total Protein 6.4 GM/DL Albumin 1.3 GM/DL Calcium Level 7.5 MG/DL Alkaline Phosphatase 187 U/L Aspartate Amino Transf (AST/SGOT) 21 U/L Alanine Aminotransferase (ALT/SGPT) 15 U/L Total Bilirubin 1.1 MG/DL Sodium Level 131 MEQ/L Potassium Level 4.5 MEQ/L Chloride Level 100 MEQ/L Carbon Dioxide Level 22.6 MEQ/L Anion Gap 8 MEQ/L Estimat Glomerular Filtration Rate 50 ML/MIN C-Reactive Protein 13.00 MG/DL Microbiology Date/Time Source Procedure Growth Status 07/18/17 11:30 Genital Cervix Neisseria gonorrhoeae Culture - Preliminary RESULTS PENDING Resulted Imaging Last Impressions Soft Tissue Ultrasound 07/18/17 0000 Signed Impressions: Service Date/Time: June 15:11 - CONCLUSION: Heterogeneous mass/collection Chuy King MD Brain MRI 07/16/17 1124 Signed Impressions: Service Date/Time: Sunday, July 16, 2017 11:38 - CONCLUSION: 1. Focal area of edema with at least 2 areas of central ring enhancement. Findings could represent both neoplastic and infectious processes. Considering the reported history, I favor the latter. 2. Lesion appears to be isolated. No midline shift. Ihsan Garvin MD Lumbar Spine MRI 07/16/17 0000 Signed Impressions: Service Date/Time: Sunday, July 16, 2017 11:38 - CONCLUSION: Cannot exclude discitis involving L5-S1. Possible right renal infarction versus focal pyelonephritis. Free fluid in the pelvis. Chuy King MD Hip Aspiration/Injection 07/16/17 0000 Signed Impressions: Service Date/Time: Sunday, July 16, 2017 14:08 - CONCLUSION: Uncomplicated aspiration as above. Arpan Gilliland MD Chest X-Ray 07/16/17 0000 Signed Impressions: Service Date/Time: Sunday, July 16, 2017 10:56 - CONCLUSION: Diffuse worsening of bilateral scattered cavitary pulmonary infiltrates throughout both lung schwab compared to the prior studies. Yemi Maradiaga MD Abscess Drainage X-Ray 07/16/17 0000 Signed Impressions: Service Date/Time: Sunday, July 16, 2017 14:46 - CONCLUSION: A region of decreased, irregular echogenicity was identified corresponding to the area the patient's known abscess. This did not appear to represent a well-circumscribed fluid collection or ultrasound. No fluid could be aspirated from this. Arpan Gilliland MD Hip MRI 07/15/17 0000 Signed Impressions: Service Date/Time: Saturday, July 15, 2017 17:29 - CONCLUSION: 1. No evidence for osteomyelitis. 2. Small to moderate-sized right hip joint effusion which does not enhance significantly post contrast. 3. 5.1 x 1.9 cm presumed small muscular abscess in the proximal left thigh adjacent to the left femoral head. 4. Extensive subcutaneous and deep tissue edema bilaterally in the pelvis, probably related to anasarca. Sebastien Moore MD Lower Extremity Ultrasound 07/14/17 0000 Signed Impressions: Service Date/Time: Friday, July 14, 2017 11:50 - CONCLUSION: Normal examination. Dang Bahena MD Hip and Pelvis X-Ray 07/14/17 0000 Signed Impressions: Service Date/Time: Friday, July 14, 2017 14:51 - CONCLUSION: Unremarkable examination of the right hip. Dang Bahena MD Renal Ultrasound 07/11/17 0000 Signed Impressions: Service Date/Time: June 09:00 - CONCLUSION: 1. No acute findings. Mildly increased renal echogenicity characteristic of medical renal disease. Sebastien Moore MD CT Angiography 07/10/17 0000 Signed Impressions: Service Date/Time: Monday, July 10, 2017 19:34 - CONCLUSION: 1. No pulmonary embolus. 2. Widespread patchy cavitary pneumonia of both lungs and probably on the basis of septic emboli. 3. Nonspecific hepatosplenomegaly. 4. Probable tricuspid regurgitation. Chuy Yang MD Physical Exam CONSTITUTIONAL/GENERAL: This is an adequately nourished patient, quite SOB, on 3 L of NC O2 TUBES/LINES/DRAINS: SKIN: No jaundice, rashes, or lesions. Ecchymoses on upper extremities. No wounds seen anteriorly. Skin temperature appropriate. Not diaphoretic. On exam: SKIN with needle alvarez and multiple embolic lesions involving fingers, toes soles and palpms L thumb and L hallux evolving large embolic lesions L thumb tip - necrotic EYES: Pupils equal and round and reactive. Extraocular motions intact. No scleral icterus. No injection or drainage. Fundi not examined. CARDIOVASCULAR: Regular tachycardia + 1-2/6 holosystolic murmur S1S2 present no gallops, or rubs. No JVD. Peripheral pulses symmetric. RESPIRATORY/CHEST: Symmetric, unlabored respirations. Clear to auscultation. Breath sounds equal bilaterally. No wheezes, rales, or rhonchi. GASTROINTESTINAL: Abdomen soft, non-tender, nondistended. No hepato-splenomegaly , or palpable masses. No guarding. Bowel sounds present. MUSCULOSKELETAL: Extremities without clubbing, cyanosis, +4+ BLE edema. No joint tenderness or effusion noted. No calf tenderness. No mottling or clubbing. ROM in R hip significantly decrased 2/2 pain L shoulder - full ROM LYMPHATICS: No palpable cervical or supraclavicular adenopathy.lear speech : L labia swollen, tender, no drainage or fluctuance NEUROLOGICAL: Awake and alert. Motor and sensory grossly within normal limits. Follows commands. Clear speech. Moves all extremities. PSYCHIATRIC: No obvious anxiety/depression. no apparent hallucinations or other psychotic thought process. L Assessment & Plan Remarks TV endocarditis with PFO , MSSA with multiple systemic embolic lesions, including brain - PFO will explain systemic emboli in this pt Red man sd to vancomycin L5S1 diskitis Vir strep bacteremia - also katharine 2/2 endocarditis 5.1 x 1.9 cm presumed small muscular abscess in the proximal left thigh adjacent to the left femoral head. Active IV user with high risk for sugery 2/2 it Prohibitive surgery risk per CTS eval Very poor prognosis. Palliative involved However I would recommend to continue conservative measures : IV abx, drainage of involved joints Plan: cont Oxacillin repeat serial blood clx utill final monitor for systemic emboli MIght need to repeat hip imaging studies (R) to eval for further drainage Pt though has TV endocarditis is expected to have possibly complications of L sided endocarditis 2/2 PFO incluiding septic emboli to brain juan antonio romano family including mother, grand father and stepfather Shana Mosley MD Jul 19, 2017 16:00
--- NOTE | 2017-07-19 18:10 | PD.ORT.PN ---
Subjective Subjective Remarks Stable overnight. But very drowsy on exam today Objective Vitals Vital Signs Date Time Temp Pulse Resp B/P (MAP) Pulse Ox O2 Delivery O2 Flow Rate FiO2 07/19/17 17:10 2.00 07/19/17 16:00 98.3 113 19 108/56 (73) 99 07/19/17 14:40 16 07/19/17 12:00 97.8 97 19 94/50 (65) 96 07/19/17 09:26 98 Nasal Cannula 3.00 07/19/17 08:00 97.4 91 20 95/60 (72) 99 07/19/17 04:15 96.9 96 18 96/65 07/19/17 03:55 96.4 95 18 92/60 100 07/18/17 23:59 101.1 116 18 99/56 96 07/18/17 23:43 100.9 120 20 110/61 96 07/18/17 21:08 Nasal Cannula 3.00 07/18/17 20:00 101.1 115 20 98/57 (71) 97 I/O 07/18/17 07/18/17 07/18/17 07/19/17 07/19/17 07/19/17 07:00 15:00 23:00 07:00 15:00 23:00 Intake Total 820 ml 960 ml 890 ml 1100 ml Output Total 100 ml 400 ml Balance 720 ml 560 ml 890 ml 1100 ml Intake Oral 720 ml 960 ml 480 ml 720 ml IV Total 100 ml Packed Cells 350 ml 350 ml Blood Product IV Normal Saline Flush 60 ml 30 ml Output Urine Total 100 ml 400 ml # Voids 5 # Bowel Movements 0 0 Result Diagram: 07/18/17 1135 07/18/17 0738 Objective Remarks Drowsy, minimally cooperative with exam Bilateral lower extremities: Significant edema throughout. Not cooperative with exam today. Assessment & Plan Assessment and Plan 26yo IVDU with endocarditis, cavitary PNA, bacteremia, multiple peripheral sites of infection including L muscular abscess and right hip infection Right hip effusion aspirated by IR with +cultures. However, patient has grave medical prognosis and therefore any urgent intervention could likely predispose her to significant medical risks. Her pulmonary cavitations are highly concerning for anesthesia along with her brain abscesses. In addition, I am concerned that she could continue to seed & reseed multiple joints and therefore trying to wash out any joint is unlikely to change her overall prognosis and could place her at significant risk with anesthesia. The goal of orthopedic intervention for a septic arthritis is for the prevention of chondrolysis as a result of bacteria within the joint, in addition to trying to decrease the bacterial burden to allow for eventual eradication of the infection. In this situation, eradication of infection is essentially impossible and chondrolysis is very possible. However, with her grave medical prognosis I am not sure that prevention of chondrolysis and eventual arthritis is her biggest concern at this time. Should she continue to have significant issues with the right hip, could consider repeat aspiration by Deandra Gant MD Jul 19, 2017 18:10
--- NOTE | 2017-07-19 18:18 | HHI.FPPN ---
Addendum to progress note ADDENDUM Reason for addendum: Additonal documentation Additional information S: Yuriy called overhead at about 1800. When I arrived in the room was informed by nursing staff that the patient was having excessive shivering and shortness of breath. She also had desaturations down to 85% on 2 L nasal cannula. The patient stated that she was feeling okay. She was concerned about a productive cough that she was having. Otherwise, she stated that she was slightly short of breath. O: V/S: AF, O2 sat 97% on 4 L nasal cannula, BP 122/67, HR 137 General-patient appeared alert but lethargic. Falling asleep as I was talking to her, but easily arousable. Sitting up in bed with Yankauer in hand suctioning brown sputum. Intermittent cough. NC in place. Cardiac-Tachycardic with regular rhythm, 2/6 holosystolic murmur. No JVD Respiratory-crackles bilaterally Abdomen-nondistended Extremities-generalized edema A/P: 26-year-old female with MSSA endocarditis, sepsis, cavitary pneumonia, brain abscess presenting with shortness of breath. ABG showed pH 7.44/PCO2 78/PCO2 35/HCO3 23 EKG showed sinus tachycardia Morning labs were drawn at the time of the Halicat, CBC showed no leukocytosis with WBCs at 10.0, status post 1 unit of leuk-reduced RBCs this morning patient' s hemoglobin is 10.4. Chest x-ray was ordered VQ scan was ordered due to desaturation and tachycardia, and pt's increased risk of PE. CTA was deferred due to acute renal failure. A bolus of NS 250 mL was given, due to pt's tachycardia but still keeping in mind that patient is fluid overloaded SDW Dr. Willis, PGY2 Oxana Lopez MD R1 Jul 19, 2017 18:18
[2017-07-19] MEDS ORDERED: SODIUM CHLOR 0.9% 250 ML INJ 250 ML IV ONE (19:00)
[2017-07-19 19:02] LABS: HEMATOCRIT 30.6 % (35.0-46.0); HEMOGLOBIN 10.4 GM/DL (11.6-15.3); MEAN CELL VOLUME 85.7 FL (80.0-100.0); MEAN CORPUSCULAR HEMOGLOBIN 29.1 PG (27.0-34.0); MEAN PLATELET VOLUME 7.3 FL (7.0-11.0); PLATELET COUNT 259 TH/MM3 (150-450); RED BLOOD COUNT 3.58 MIL/MM3 (4.00-5.30); RED CELL DISTRIBUTION WIDTH 17.3 % (11.6-17.2)
[2017-07-19 19:20] LABS: INTERNATIONAL NORMALIZED RATIO 1.3 RATIO; PROTHROMBIN TIME - PATIENT 12.8 SEC (9.8-11.6)
[2017-07-19 19:22] LABS: ALBUMIN 1.5 GM/DL (3.4-5.0); AST (GOT) 50 U/L (15-37); BICARBONATE 26.1 MEQ/L (21.0-32.0); BLOOD UREA NITROGEN 26 MG/DL (7-18); CHLORIDE 96 MEQ/L (98-107); CREATININE 1.66 MG/DL (0.50-1.00); GLOMERULAR FILTRATION RATE 37 ML/MIN (>89); GLUCOSE,RANDOM 82 MG/DL (74-106); SODIUM (NA) 132 MEQ/L (136-145)
[2017-07-19 19:24] LABS: ALT (GPT) 27 U/L (10-53)
[2017-07-19 19:26] LABS: ALKALINE PHOSPHATASE 275 U/L (45-117); TOTAL BILIRUBIN ADULT 1.2 MG/DL (0.2-1.0); TOTAL PROTEIN 7.5 GM/DL (6.4-8.2)
--- NOTE | 2017-07-19 19:55 | RADRPT ---
EXAM DATE/TIME: 07/19/2017 18:37 [facility] COMPARISON: CHEST PA & LAT, July 16, 2017, 10:56. INDICATIONS : Cough and shortness of breath. MEDICAL HISTORY : Asthma. Tricuspid valve endocarditis. SURGICAL HISTORY : None. ENCOUNTER: Initial ACUITY: 1 day PAIN SCORE: 2/10 LOCATION: Bilateral chest FINDINGS: Compare July 16. Overall consolidation of the lungs is stable to slightly improved. Multiple bilater al cavitary lesions present. Small effusions. CONCLUSION: 1. Stable to slight improvement of bilateral airspace disease. Multiple cavitary lesions remain with trace pleural fluid. Sebastien Moore MD on July 19, 2017 at 19:51 Board Certified Radiologist. This report was verified electronically.
--- NOTE | 2017-07-19 21:14 | RADRPT ---
EXAM DATE/TIME: 07/19/2017 19:35 [facility] COMPARISON: No previous studies available for comparison. INDICATIONS : Shortness of breath for one day. DOSE: 8.7 mCi Tc99m MAA IV 0.87 mCi Tc99m DTPA aerosol MEDICAL HISTORY : Endocarditis. Asthma. SURGICAL HISTORY : None. ENCOUNTER: Initial ACUITY: 1 day PAIN SCALE: 0/10 LOCATION: chest TECHNIQUE: Following five minutes of tidal breathing of DTPA aerosol, planar images of the lungs were performed in eight projections. The patient was then injected with MAA, and eight-view perfusion scan was perf ormed. FINDINGS: There are multiple segmental and subsegmental perfusion defects in both lungs. Some of the perfusion defects have matching ventilation defects but some ventilation perfusion mismatches. CONCLUSION: 1. High probability for pulmonary embolus, likely septic emboli given the appearance of cavitary lesi ons in the lungs. Sebastien Moore MD on July 19, 2017 at 21:09 Board Certified Radiologist. This report was verified electronically.
--- NOTE | 2017-07-19 21:50 | HHI.HCPN ---
Reason for visit a. To assist with evaluation and management of symptoms including: pain; cough; dyspnea; confusion b. To assist medical decision maker(s) with: better understanding of current medical conditions; weighing benefits/burdens of medical treatment options; making medical treatment decisions. . Subjective/Interval History No significant clinical change overnight. Patient reports pain, dyspnea, cough remain the same. Opiate use continues in the same pattern. Patient still has periods of lethargy and some intermittent confusion. Patient spoke with the resident team prior to my visit. They reviewed her clinical status, challenges , and poor prognosis. I went over the same with her and then spoke with both paternal and maternal grandfathers separately. Patient was understandably tearful as the prospect that she might be dying became real. She continues to want to be kept informed and to make her own decisions. We discussed the benefits and burdens of the current treatment plan. Patient is aware that any time she feels the burdens outweigh the benefits she can opt for "comfort measures only" and return home with hospice support. I spoke with both the resident team and with Dr. Mosley. Dr. Mosley feels strongly that aggressive anti-microbial therapy should continue until either the infection clears or the patient has some sort of major setback (e.g. devastating brain infection; hemorrhage; etc) that would make further treatment futile. Family agrees with this plan. Patient has completed advance directives. She has formally asked her maternal grandfather to serve as her surrogate. She wants an attempt at resuscitation but does not want to be kept alive on machines if the doctors think she has little chance of getting off the machines or becoming awake/alert/interactive. . Family/friend interactions spoke with patient, both grandfathers, and maternal grandmother at bedside for 20 minutes. Spoke with both grandfathers outside the room for an additional 20 minutes. They had questions about hospice care. . Advance Directives Living Will: Copy in medical record Health Care Surrogate: Copy in medical record Durable Power of Director Of Casino: Never completed Advance Directive Specifics Date completed: 07/19/17 . Health Care Surrogate(s): Her grandfather -- Kendall Arellano . . Documented care wishes: She wants an attempt at resuscitation but does not want to be kept alive on machines if the doctors think she has little chance of getting off the machines or becoming awake/alert/interactive. . Objective Vital Signs Date Time Temp Pulse Resp B/P (MAP) Pulse Ox O2 Delivery O2 Flow Rate FiO2 07/19/17 17:10 2.00 07/19/17 16:00 98.3 113 19 108/56 (73) 99 07/19/17 14:40 16 07/19/17 12:00 97.8 97 19 94/50 (65) 96 07/19/17 09:26 98 Nasal Cannula 3.00 07/19/17 08:00 97.4 91 20 95/60 (72) 99 07/19/17 04:15 96.9 96 18 96/65 07/19/17 03:55 96.4 95 18 92/60 100 07/18/17 23:59 101.1 116 18 99/56 96 07/18/17 23:43 100.9 120 20 110/61 96 07/18/17 21:08 Nasal Cannula 3.00 . Physical Exam CONSTITUTIONAL/GENERAL: This is an adequately nourished patient in a [facility] bed. She is conversant, but easily drifts to sleep. there is a frequent productive cough. she is dyspneic with exertion. There is some generalized edema. TUBES/LINES/DRAINS: Peripheral IVs SKIN: No jaundice, rashes. . Skin temperature appropriate. Not diaphoretic. Numerous embolic type ischemic appearing lesions on fingers, toes, soles.. There is a left medial leg wound. There is some generalized edema. EYES: Pupils equal and round. Extraocular motions intact. No scleral icterus. No injection or drainage. Fundi not examined. ENT: Hearing grossly normal. Nose without bleeding or purulent drainage. Throat without visible erythema, exudates, masses, or lesions. NECK: Trachea midline. Supple, nontender. CARDIOVASCULAR: Regular rate and rhythm without gallops, or rubs. 2/6 systolic murmur. No JVD. RESPIRATORY/CHEST: Symmetric, unlabored respirations. Breath sounds equal bilaterally but diminished. No wheezes. Bilateral crackles worse on left. GASTROINTESTINAL: Abdomen soft, non-tender, nondistended. No hepato-splenomegaly , or palpable masses. No guarding. Bowel sounds present. GENITOURINARY: Without palpable bladder distension. MUSCULOSKELETAL: Extremities with the multiple embolic lesions on fingers, toes , soles. Generalized edema in upper and lower extremities. . No mottling or clubbing. LYMPHATICS: Not examined NEUROLOGICAL: Conversant, but intermittently nods off even when trying to answer a question. Motor and sensory grossly within normal limits. Follows commands. Cognitively sharp until she gets drowsy. PSYCHIATRIC: No obvious anxiety/depression. No apparent hallucinations or other psychotic thought process. . Diagnostic Tests Laboratory Laboratory Tests Test 07/17/17 06:50 07/17/17 22:56 07/18/17 07:38 07/18/17 11:35 White Blood Count 11.2 TH/MM3 (4.0-11.0) 8.3 TH/MM3 (4.0-11.0) Red Blood Count 2.59 MIL/MM3 (4.00-5.30) 2.34 MIL/MM3 (4.00-5.30) Hemoglobin 7.5 GM/DL (11.6-15.3) 7.3 GM/DL (11.6-15.3) 7.0 GM/DL (11.6-15.3) 8.5 GM/DL (11.6-15.3) Hematocrit 21.8 % (35.0-46.0) 20.5 % (35.0-46.0) 20.1 % (35.0-46.0) 25.0 % (35.0-46.0) Mean Corpuscular Volume 84.3 FL (80.0-100.0) 85.9 FL (80.0-100.0) Mean Corpuscular Hemoglobin 29.0 PG (27.0-34.0) 29.8 PG (27.0-34.0) Mean Corpuscular Hemoglobin Concent 34.4 % (32.0-36.0) 34.7 % (32.0-36.0) Red Cell Distribution Width 17.5 % (11.6-17.2) 17.2 % (11.6-17.2) Platelet Count 156 TH/MM3 (150-450) 166 TH/MM3 (150-450) Mean Platelet Volume 6.7 FL (7.0-11.0) 7.2 FL (7.0-11.0) Neutrophils (%) (Auto) 87.3 % (16.0-70.0) 84.2 % (16.0-70.0) Lymphocytes (%) (Auto) 7.9 % (9.0-44.0) 9.1 % (9.0-44.0) Monocytes (%) (Auto) 4.1 % (0.0-8.0) 5.7 % (0.0-8.0) Eosinophils (%) (Auto) 0.3 % (0.0-4.0) 0.4 % (0.0-4.0) Basophils (%) (Auto) 0.4 % (0.0-2.0) 0.6 % (0.0-2.0) Neutrophils # (Auto) 9.7 TH/MM3 (1.8-7.7) 7.0 TH/MM3 (1.8-7.7) Lymphocytes # (Auto) 0.9 TH/MM3 (1.0-4.8) 0.8 TH/MM3 (1.0-4.8) Monocytes # (Auto) 0.5 TH/MM3 (0-0.9) 0.5 TH/MM3 (0-0.9) Eosinophils # (Auto) 0.0 TH/MM3 (0-0.4) 0.0 TH/MM3 (0-0.4) Basophils # (Auto) 0.0 TH/MM3 (0-0.2) 0.1 TH/MM3 (0-0.2) CBC Comment DIFF FINAL DIFF FINAL Differential Comment Blood Urea Nitrogen 21 MG/DL (7-18) 22 MG/DL (7-18) Creatinine 1.27 MG/DL (0.50-1.00) 1.28 MG/DL (0.50-1.00) Random Glucose 114 MG/DL (74-106) 100 MG/DL (74-106) Total Protein 6.4 GM/DL (6.4-8.2) 6.4 GM/DL (6.4-8.2) Albumin 1.3 GM/DL (3.4-5.0) 1.3 GM/DL (3.4-5.0) Calcium Level 7.6 MG/DL (8.5-10.1) 7.5 MG/DL (8.5-10.1) Alkaline Phosphatase 159 U/L (45-117) 187 U/L (45-117) Aspartate Amino Transf (AST/SGOT) 22 U/L (15-37) 21 U/L (15-37) Alanine Aminotransferase (ALT/SGPT) 16 U/L (10-53) 15 U/L (10-53) Total Bilirubin 1.4 MG/DL (0.2-1.0) 1.1 MG/DL (0.2-1.0) Sodium Level 133 MEQ/L (136-145) 131 MEQ/L (136-145) Potassium Level 4.3 MEQ/L (3.5-5.1) 4.5 MEQ/L (3.5-5.1) Chloride Level 101 MEQ/L (98-107) 100 MEQ/L (98-107) Carbon Dioxide Level 25.1 MEQ/L (21.0-32.0) 22.6 MEQ/L (21.0-32.0) Anion Gap 7 MEQ/L (5-15) 8 MEQ/L (5-15) Estimat Glomerular Filtration Rate 50 ML/MIN (>89) 50 ML/MIN (>89) C-Reactive Protein 13.00 MG/DL (0.00-0.30) Test 07/19/17 14:35 07/19/17 18:15 07/19/17 18:35 B-Type Natriuretic Peptide 439 PG/ML (0-100) Blood Gas Puncture Site RT RADIAL Blood Gas Patient Temperature 98.6 Blood Gas HCO3 23 mmol/L (22-26) Blood Gas Base Excess -0.3 mmol/L (-2-2) Blood Gas Oxygen Saturation 94 % (90-100) Arterial Blood pH 7.44 (7.380-7.420) Arterial Blood Partial Pressure CO2 35 mmHg (38-42) Arterial Blood Partial Pressure O2 78 mmHg (61-120) Arterial Blood Oxygen Content 17.2 Vol % (12.0-20.0) Arterial Blood Carboxyhemoglobin 1.6 % (0-4) Arterial Blood Methemoglobin 0.7 % (0-2) Blood Gas Hemoglobin 13.0 G/DL (12.0-16.0) Oxygen Delivery Device NASAL CANNULA Blood Gas Liter Flow 4 L/M White Blood Count 10.0 TH/MM3 (4.0-11.0) Red Blood Count 3.58 MIL/MM3 (4.00-5.30) Hemoglobin 10.4 GM/DL (11.6-15.3) Hematocrit 30.6 % (35.0-46.0) Mean Corpuscular Volume 85.7 FL (80.0-100.0) Mean Corpuscular Hemoglobin 29.1 PG (27.0-34.0) Mean Corpuscular Hemoglobin Concent 34.0 % (32.0-36.0) Red Cell Distribution Width 17.3 % (11.6-17.2) Platelet Count 259 TH/MM3 (150-450) Mean Platelet Volume 7.3 FL (7.0-11.0) Prothrombin Time 12.8 SEC (9.8-11.6) Prothromb Time International Ratio 1.3 RATIO Activated Partial Thromboplast Time 21.0 SEC (24.3-30.1) Blood Urea Nitrogen 26 MG/DL (7-18) Creatinine 1.66 MG/DL (0.50-1.00) Random Glucose 82 MG/DL (74-106) Total Protein 7.5 GM/DL (6.4-8.2) Albumin 1.5 GM/DL (3.4-5.0) Calcium Level 8.0 MG/DL (8.5-10.1) Alkaline Phosphatase 275 U/L (45-117) Aspartate Amino Transf (AST/SGOT) 50 U/L (15-37) Alanine Aminotransferase (ALT/SGPT) 27 U/L (10-53) Total Bilirubin 1.2 MG/DL (0.2-1.0) Sodium Level 132 MEQ/L (136-145) Potassium Level 4.3 MEQ/L (3.5-5.1) Chloride Level 96 MEQ/L (98-107) Carbon Dioxide Level 26.1 MEQ/L (21.0-32.0) Anion Gap 10 MEQ/L (5-15) Estimat Glomerular Filtration Rate 37 ML/MIN (>89) Lactic Acid Level 2.2 mmol/L (0.4-2.0) . Result Diagram: 07/19/17183407/19/171834 Microbiology Microbiology Date/Time Source Procedure Growth Status 07/19/17 18:40 Blood Peripheral Aerobic Blood Culture Pending Received 07/19/17 18:40 Blood Peripheral Anaerobic Blood Culture Pending Received 07/19/17 18:35 Blood Peripheral Aerobic Blood Culture Pending Received 07/19/17 18:35 Blood Peripheral Anaerobic Blood Culture Pending Received 07/18/17 11:30 Genital Cervix Neisseria gonorrhoeae Culture - Preliminary RESULTS PENDING Resulted . Imaging Last Impressions Chest X-Ray 07/19/17 0000 Signed Impressions: Service Date/Time: Wednesday, July 19, 2017 18:37 - CONCLUSION: 1. Stable to slight improvement of bilateral airspace disease. Multiple cavitary lesions remain with trace pleural fluid. Sebastien Moore MD Soft Tissue Ultrasound 07/18/17 0000 Signed Impressions: Service Date/Time: June 15:11 - CONCLUSION: Heterogeneous mass/collection Chuy King MD Brain MRI 07/16/17 1124 Signed Impressions: Service Date/Time: Sunday, July 16, 2017 11:38 - CONCLUSION: 1. Focal area of edema with at least 2 areas of central ring enhancement. Findings could represent both neoplastic and infectious processes. Considering the reported history, I favor the latter. 2. Lesion appears to be isolated. No midline shift. Ihsan Garvin MD Lumbar Spine MRI 07/16/17 0000 Signed Impressions: Service Date/Time: Sunday, July 16, 2017 11:38 - CONCLUSION: Cannot exclude discitis involving L5-S1. Possible right renal infarction versus focal pyelonephritis. Free fluid in the pelvis. Chuy King MD Hip Aspiration/Injection 07/16/17 0000 Signed Impressions: Service Date/Time: Sunday, July 16, 2017 14:08 - CONCLUSION: Uncomplicated aspiration as above. Arpan Gilliland MD Abscess Drainage X-Ray 07/16/17 0000 Signed Impressions: Service Date/Time: Sunday, July 16, 2017 14:46 - CONCLUSION: A region of decreased, irregular echogenicity was identified corresponding to the area the patient's known abscess. This did not appear to represent a well-circumscribed fluid collection or ultrasound. No fluid could be aspirated from this. Arpan Gilliland MD Hip MRI 07/15/17 0000 Signed Impressions: Service Date/Time: Saturday, July 15, 2017 17:29 - CONCLUSION: 1. No evidence for osteomyelitis. 2. Small to moderate-sized right hip joint effusion which does not enhance significantly post contrast. 3. 5.1 x 1.9 cm presumed small muscular abscess in the proximal left thigh adjacent to the left femoral head. 4. Extensive subcutaneous and deep tissue edema bilaterally in the pelvis, probably related to anasarca. Sebastien Moore MD Lower Extremity Ultrasound 07/14/17 0000 Signed Impressions: Service Date/Time: Friday, July 14, 2017 11:50 - CONCLUSION: Normal examination. Dang Bahena MD Hip and Pelvis X-Ray 07/14/17 Signed Impressions: Service Date/Time: Friday, July 14, 2017 14:51 - CONCLUSION: Unremarkable examination of the right hip. Dang Bahena MD Renal Ultrasound 07/11/17 Signed Impressions: Service Date/Time: June 09:00 - CONCLUSION: 1. No acute findings. Mildly increased renal echogenicity characteristic of medical renal disease. Sebastien Moore MD CT Angiography 07/10/17 Signed Impressions: Service Date/Time: Monday, July 10, 2017 19:34 - CONCLUSION: 1. No pulmonary embolus. 2. Widespread patchy cavitary pneumonia of both lungs and probably on the basis of septic emboli. 3. Nonspecific hepatosplenomegaly. 4. Probable tricuspid regurgitation. Chuy Yang MD . Procedures . Assessment and Plan Disease Oriented Problem List: (1) Endocarditis of tricuspid valve (2) Severe sepsis with acute organ dysfunction due to Staphylococcus species (3) Discitis (4) Muscle abscess (5) Cerebral abscess (embolic) (6) severe TR (7) Vaginal bleeding (8) Anasarca (9) Septic arthritis of hip (10) Cavitary pneumonia (11) ENRICO (acute kidney injury) (12) Hemoptysis (13) Anemia (14) Hypoalbuminemia Symptom Scale: (1) Pain 0-10 Scale: 8 Comment: The patient complains of significant pain involving multiple locations. Pain averages at a #8 intensity, frequently goes up to #10, and with opiates will get down only as low as a #7.. Worst areas of pain are her low back; right hip; bottoms of her feet (worse with weightbearing); and her shoulders. Her back pain is significantly worse with coughing. Pain is primarily being controlled with oral oxycodone at 10 mg every 4 hours as needed. She also has an order for parenteral morphine sulfate at 2 mg every 4 hours IV push . . (2) Dyspnea 0-10 Scale: Unable to quantify Comment: The patient also has dyspnea with even minor exertion. Just getting out of bed to use the bedside commode and back into bed completely wind her. There is frequent coughing and she is bringing up blood tinged phlegm. . (3) Cough 0-10 Scale: Unable to quantify Comment: Cough is severe and exacerbates back pain. Cough is producing blood tinged phlegm. . (4) Confusion 0-10 Scale: Unable to quantify Comment: Confusion is intermittent. Pertinent Non-Medical Issues Psychosocial: Hx of IV drug abuse. Has been living with grandparents. Mother lives outside [facility] with pt's stepfather. Biological father lives in [place]. Spiritual: Christian and spirituality have not played an important role in her life. [employer] services have been declined. Legal: No advance directives. Ethical issues impacting care: No apparent ethical issues . Important Contacts Kendall Arellano (grandparent and health care surrogate) [phone] Yuly Arellano (grandparent) [phone] . Prognosis Grim prognosis is best understood from the note of Dr. Federico Almanza (critical care) from 07/17/17... "Overall impression: The patient is critically ill with systemic sepsis from MSSA endocarditis of the [place] tricuspid valve. Care is immensely complicated because of a patent foramen ovale and pulmonary hypertension. Paradoxical septic emboli have seeded multiple organs including brain, skin, lungs. The numerous lung abscesses alone are terminal and will eventually result in massive hemoptysis. The untreated severe tricuspid insufficiency will produce intractable ascites and skin ulceration of the lower extremities unless we push chemical diuresis to the point of renal failure and institute dialysis for fluid balance control. Several digits are already at risk for amputation. She is absolutely not a candidate for valve replacement surgery because of the high risk for hemoptysis and cerebral hemorrhage when anticoagulated for cardiopulmonary bypass (Heparin 30,000 unit). Closure of the PFO is contraindicated because of the risk of placing prosthetic material adjacent to a vegetation. This is terminal condition and she will not survive 6 months from today. The organism is highly sensitive and she may well have a brief period of clinical improvement, but destruction of the involved valve will progress and the complications of peripheral edema with ulceration, intractable ascites, right heart failure, low cardiac output, and renal failure will eventuate. A sudden stroke or massive hemoptysis may shorten this trajectory considerably. I would like to have the recommendations of the Palliative Care team to assist with advising this patient and her family." . Code Status: Full Code Plan == Code Status: FULL CODE. Patient desires a resuscitation attempt. She does not want to be maintained on life support if the doctors think there is little chance of getting her off or she won't return to a quality of life where she is awake, alert, interactive. == Decision making: Patient would drift off to sleep periodically during my visit, but when awake she appeared cognitively intact. Family notes intermittent confusion. I recommend that for significant decision making we encourage "shared decisions" with patient and her grandfather -- Kendall Arellano -- her designated health care surrogate. == Goals of medical treatment: Patient and family want to follow Dr. Mosley' s recommendation to continue with aggressive antibiotic therapy in the hospital until cultures clear and then arrange for outpatient IV antibiotics as she did the last time. Dr. Mosley says she will need 8 weeks of coverage for her discitis. They agree with Dr. Mosley that they may want to discontinue antibiotic therapy and transition to comfort measures if there is some sort of devastating event such as a cerbral hemorrhage; severe heart failure; etc. == Symptoms * Though patient rarely has pain levels below #7 even with her current opiate regimen, I am reluctant to increase opioids while goals remain very aggressive. She already is lethargic at times and has intermittent confusion and we want to be able to observe neuro changed. She appears OK with this regimen. * Dyspnea: Her SOB is likely due to her multiple septic lesions throughout both lungs. Opiates and benzos would certainly help relieve her sense of dyspnea, but as noted above, I am reluctant to recommend any increases in sedating meds while the goals are aggressive. * Cough: Patient has hemoptysis. I would like her to be able to clear some of these secretions. Her current opiate regiment is a fairly effective cough suppressant. If additional cough suppression is needed would recommend dextromethorphan rather than additional opiates. * Confusion: This is probably a multi-factorial encephalopathy from her septic brain lesions, poor nutrition, medication, etc. == Palliative care will continue to follow to assist with symptom management and further clarify goals of medical treatment as the clinical course evolves. . Time Spent Total Floor Time (mins): 50 (Total floor time included chart review; pt exam; above referenced discussions with patient/family/dr. Mosley/resident team/ documentation) Face to Face Time (mins): 25 >50% Counseling/Coord of Care: Yes Attestation To help prompt me to consider important information that might be impacting today's encounter and assessment, information from prior notes written by myself or my colleagues may have been "brought forward" into today's note. My signature on this note, however, is an attestation that I personally performed the exam, history, and/or decision-making noted today, and, unless otherwise indicated, the interactions with patient, family, and staff as well as the review of records all occurred today. I also attest that the listed assessment and stated plan reflect my best clinical judgment today based on the combination of historical information, prior notes, and today's exam/ interactions. When time spent is documented, it refers only to time spent today by the signer, or if indicated, combined time spent today by collaborating physician/nurse practitioner. . Neo Sosa MD Jul 19, 2017 21:50
[2017-07-19] MEDS ORDERED: GADOBENATE DIM PF 529 MG/ML 5 ML VIAL (for RAD MRI) IV ONE (21:58)
[2017-07-19] MEDS: MENTHOL LOZENGE BUCCAL PRN (22:25)
[2017-07-19] MEDS: diphenhydrAMINE HCL 25 MG CAP PO PRN (22:45)
--- NOTE | 2017-07-19 23:30 | RADRPT ---
EXAM DATE/TIME: 07/19/2017 21:25 [facility] COMPARISON: No previous studies available for comparison. INDICATIONS : Abscess. Pain post right hip abscess drain. CONTRAST: 14 cc Multihance (gadobenate) IV MEDICAL HISTORY : endocarditis, IVDA SURGICAL HISTORY : Rt hip abscess drain ENCOUNTER: Subsequent ACUITY: 1 week PAIN SCORE: 4/10 LOCATION: Right hip TECHNIQUE: Multiplanar, multisequence MRI examination was performed without contrast and after the intravenous a dministration of gadolinium. FINDINGS: Comparison is July 15. Again seen is no significant marrow enhancement to suggest osteomyelitis. Previously described multiloculated enhancing fluid collection in the proximal left thigh adjacent to the left femoral head is again and similar in size measuring about 4.7 x 2 cm on today's examination . Moderate size right hip joint effusion is again noted, similar to prior examination. There is extensi ve edema in the soft tissues around the right hip which also extends in the subcutaneous tissues of t he left hip. No masses identified in the lower pelvis. CONCLUSION: 1. No evidence for osteomyelitis. 2. Stable small to moderate-sized right hip joint effusion which now does demonstrate some rim enhanc ement postcontrast. It is unclear if this is related to infection or recent aspiration. 3. Relatively stable presumed small muscular abscess in the proximal left thigh adjacent to the left femoral head. 4. Extensive subcutaneous edema. Sebastien Moore MD on July 19, 2017 at 23:20 Board Certified Radiologist. This report was verified electronically.
[2017-07-20] VITALS (10 sets, daily range): BP systolic 96–109; BP diastolic 55–60; PULSE 102–112; RESP 15–20; TEMP 97.7–99.9; O2SAT 92–97
[2017-07-20] MEDS: RESP: IPRATROPIUM 0.5 MG/2.5 ML NEB NEB SCH ×6 (01:11→20:52)
[2017-07-20] MEDS: OXACILLIN INJ 2 GM in SODIUM CHLORIDE 0.9% INJ 100 ML IV SCH ×6 (03:02→22:59)
[2017-07-20] MEDS: BENZONATATE 100 MG CAP PO PRN ×3 (03:03→23:00)
[2017-07-20] MEDS: LORazepam 1 MG TAB PO PRN ×2 (03:03→21:01)
[2017-07-20] MEDS: diphenhydrAMINE HCL 25 MG CAP PO PRN ×2 (05:33→20:58)
[2017-07-20] MEDS: MENTHOL LOZENGE BUCCAL PRN ×3 (05:33→20:57)
[2017-07-20] MEDS: MUPIROCIN 2% OINT 22 GM TUBE TOPICAL SCH ×3 (05:43→20:59)
--- NOTE | 2017-07-20 07:06 | PD.ORT.PN ---
Subjective Subjective Remarks Patient is awake. Coughing heavily with productive cough. Complains of pain Objective Vitals Vital Signs Date Time Temp Pulse Resp B/P (MAP) Pulse Ox O2 Delivery O2 Flow Rate FiO2 07/20/17 04:00 98.1 102 19 96/55 (69) 97 07/20/17 01:12 97 Nasal Cannula 2.00 07/19/17 23:45 112 18 104/69 (81) 98 07/19/17 22:00 97.2 122 19 109/64 (79) 91 07/19/17 20:00 Nasal Cannula 2.00 07/19/17 20:00 98.2 126 19 89/55 (66) 98 07/19/17 17:10 2.00 07/19/17 16:00 98.3 113 19 108/56 (73) 99 07/19/17 14:40 16 07/19/17 12:00 97.8 97 19 94/50 (65) 96 07/19/17 09:26 98 Nasal Cannula 3.00 07/19/17 08:00 97.4 91 20 95/60 (72) 99 I/O 07/19/17 07/19/17 07/19/17 07/20/17 07/20/17 07/20/17 07:00 15:00 23:00 07:00 15:00 23:00 Intake Total 890 ml 1200 ml 690 ml 880 ml Output Total 300 ml Balance 890 ml 1200 ml 390 ml 880 ml Intake Oral 480 ml 720 ml 240 ml 680 ml IV Total 100 ml 450 ml 200 ml Packed Cells 350 ml 350 ml Blood Product IV Normal Saline Flush 60 ml 30 ml Output Urine Total 300 ml # Voids 5 10 # Bowel Movements 0 0 Result Diagram: 07/19/17 1835 07/19/17 183 Other Results Laboratory Tests Test 07/19/17 18:35 Prothromb Time International Ratio 1.3 RATIO Prothrombin Time 12.8 SEC (9.8-11.6) Objective Remarks Patient awake but sleepy, coughing heavily Bilateral lower extremities: Significant edema throughout--complaints of pain with motion of both legs. Assessment & Plan Assessment and Plan 26yo IVDU with endocarditis, cavitary PNA, bacteremia, multiple peripheral sites of infection including muscular abscess and right hip infection Hospice care involves--patient has terminal disease Right hip effusion aspirated by IR with +cultures--patient not a surgical candidate -- Her pulmonary cavitations are highly concerning for anesthesia along with her brain abscesses. In addition, I am concerned that she could continue to seed & reseed multiple joints and therefore trying to wash out any joint is unlikely to change her overall prognosis and could place her at significant risk with anesthesia. Continue antibiotics per infectious disease Continue comfort care Vivek Valadez MD Jul 20, 2017 07:06
[2017-07-20 07:18] LABS: AUTOMATED NEUTROPHIL # 5.8 TH/MM3 (1.8-7.7); BASOPHIL # 0.1 TH/MM3 (0-0.2); EOSINOPHIL % 0.7 % (0.0-4.0); HEMATOCRIT 24.2 % (35.0-46.0); HEMOGLOBIN 8.5 GM/DL (11.6-15.3); LYMPH % 12.7 % (9.0-44.0); MEAN CELL VOLUME 85.6 FL (80.0-100.0); MEAN CORPUSCULAR HEMOGLOBIN 30.1 PG (27.0-34.0); MEAN CORPUSCULAR HGB CONC 35.2 % (32.0-36.0); MONO % 9.1 % (0.0-8.0); MONOCYTE # 0.7 TH/MM3 (0-0.9); NEUT % 76.5 % (16.0-70.0); PLATELET COUNT 230 TH/MM3 (150-450); RED BLOOD COUNT 2.82 MIL/MM3 (4.00-5.30); RED CELL DISTRIBUTION WIDTH 17.1 % (11.6-17.2); WHITE BLOOD COUNT 7.5 TH/MM3 (4.0-11.0)
[2017-07-20 07:44] LABS: ALBUMIN 1.2 GM/DL (3.4-5.0); ALT (GPT) 20 U/L (10-53); AST (GOT) 26 U/L (15-37); BICARBONATE 25.1 MEQ/L (21.0-32.0); BLOOD UREA NITROGEN 25 MG/DL (7-18); CALCIUM 7.9 MG/DL (8.5-10.1); CHLORIDE 98 MEQ/L (98-107); CREATININE 1.53 MG/DL (0.50-1.00); GLOMERULAR FILTRATION RATE 41 ML/MIN (>89); GLUCOSE,RANDOM 90 MG/DL (74-106); SODIUM (NA) 132 MEQ/L (136-145)
[2017-07-20 07:51] LABS: ALKALINE PHOSPHATASE 204 U/L (45-117); TOTAL PROTEIN 6.2 GM/DL (6.4-8.2)
--- NOTE | 2017-07-20 08:31 | HHI.FPPN ---
Subjective Remarks Yuriy called on patient overnight for oxygen desaturations and shortness of breath. VQ scan and CXR obtained and 250ml NS bolus given. Patient continues to have tachycardia up to 126. Blood pressure has been stable. She is saturating 91-98% on 2 L nasal cannula. Her last fever was on 07/18. She continues to have a cough productive of bloody sputum. She continues to have pain that is controlled with her current pain regimen. She has been talking with palliative care and seems to have a better understanding now of her overall prognosis. She has friends coming in to visit her from out of town and she is looking forward to this. (Yi Harvey MD, R3) Objective Vitals Vital Signs Date Time Temp Pulse Resp B/P (MAP) Pulse Ox O2 Delivery O2 Flow Rate FiO2 07/20/17 04:00 98.1 102 19 96/55 (69) 97 07/20/17 01:12 97 Nasal Cannula 2.00 07/19/17 23:45 112 18 104/69 (81) 98 07/19/17 22:00 97.2 122 19 109/64 (79) 91 07/19/17 20:00 Nasal Cannula 2.00 07/19/17 20:00 98.2 126 19 89/55 (66) 98 07/19/17 17:10 2.00 07/19/17 16:00 98.3 113 19 108/56 (73) 99 07/19/17 14:40 16 07/19/17 12:00 97.8 97 19 94/50 (65) 96 07/19/17 09:26 98 Nasal Cannula 3.00 I/O 07/19/17 07/19/17 07/19/17 07/20/17 07/20/17 07/20/17 07:00 15:00 23:00 07:00 15:00 23:00 Intake Total 890 ml 1200 ml 690 ml 880 ml Output Total 300 ml Balance 890 ml 1200 ml 390 ml 880 ml Intake Oral 480 ml 720 ml 240 ml 680 ml IV Total 100 ml 450 ml 200 ml Packed Cells 350 ml 350 ml Blood Product IV Normal Saline Flush 60 ml 30 ml Output Urine Total 300 ml # Voids 5 10 # Bowel Movements 0 0 (Yi Harvey MD, R3) Result Diagram: 07/20/17 0652 07/20/17 0652 Imaging Last Impressions Lung Scan-VQ Nuclear Medicine 07/19/17 0000 Signed Impressions: Service Date/Time: Wednesday, July 19, 2017 19:35 - CONCLUSION: 1. High probability for pulmonary embolus, likely septic emboli given the appearance of cavitary lesions in the lungs. Sebastien Moore MD Hip MRI 07/19/17 0000 Signed Impressions: Service Date/Time: Wednesday, July 19, 2017 21:25 - CONCLUSION: 1. No evidence for osteomyelitis. 2. Stable small to moderate-sized right hip joint effusion which now does demonstrate some rim enhancement postcontrast. It is unclear if this is related to infection or recent aspiration. 3. Relatively stable presumed small muscular abscess in the proximal left thigh adjacent to the left femoral head. 4. Extensive subcutaneous edema. Sebastien Moore MD Chest X-Ray 07/19/17 0000 Signed Impressions: Service Date/Time: Wednesday, July 19, 2017 18:37 - CONCLUSION: 1. Stable to slight improvement of bilateral airspace disease. Multiple cavitary lesions remain with trace pleural fluid. Sebastien Moore MD Soft Tissue Ultrasound 07/18/17 0000 Signed Impressions: Service Date/Time: June 15:11 - CONCLUSION: Heterogeneous mass/collection Chuy King MD Brain MRI 07/16/17 1124 Signed Impressions: Service Date/Time: Sunday, July 16, 2017 11:38 - CONCLUSION: 1. Focal area of edema with at least 2 areas of central ring enhancement. Findings could represent both neoplastic and infectious processes. Considering the reported history, I favor the latter. 2. Lesion appears to be isolated. No midline shift. Ihsan Garvin MD Lumbar Spine MRI 07/16/17 0000 Signed Impressions: Service Date/Time: Sunday, July 16, 2017 11:38 - CONCLUSION: Cannot exclude discitis involving L5-S1. Possible right renal infarction versus focal pyelonephritis. Free fluid in the pelvis. Chuy King MD Hip Aspiration/Injection 07/16/17 0000 Signed Impressions: Service Date/Time: Sunday, July 16, 2017 14:08 - CONCLUSION: Uncomplicated aspiration as above. Arpan Gilliland MD Abscess Drainage X-Ray 07/16/17 Signed Impressions: Service Date/Time: Sunday, July 16, 2017 14:46 - CONCLUSION: A region of decreased, irregular echogenicity was identified corresponding to the area the patient's known abscess. This did not appear to represent a well-circumscribed fluid collection or ultrasound. No fluid could be aspirated from this. Arpan Gilliland MD Lower Extremity Ultrasound 07/14/17 0000 Signed Impressions: Service Date/Time: Friday, July 14, 2017 11:50 - CONCLUSION: Normal examination. Dang Bahena MD Hip and Pelvis X-Ray 07/14/17 0000 Signed Impressions: Service Date/Time: Friday, July 14, 2017 14:51 - CONCLUSION: Unremarkable examination of the right hip. Dang Bahean MD Renal Ultrasound 07/11/17 0000 Signed Impressions: Service Date/Time: June 09:00 - CONCLUSION: 1. No acute findings. Mildly increased renal echogenicity characteristic of medical renal disease. Sebastien Moore MD CT Angiography 07/10/17 0000 Signed Impressions: Service Date/Time: Monday, July 10, 2017 19:34 - CONCLUSION: 1. No pulmonary embolus. 2. Widespread patchy cavitary pneumonia of both lungs and probably on the basis of septic emboli. 3. Nonspecific hepatosplenomegaly. 4. Probable tricuspid regurgitation. Chuy Yang MD Objective Remarks GENERAL: This is an acutely ill appearing female pt. Generally edematous. SKIN: On the medial aspect of the left lower leg there is a 1x1 cm scabbed, healing lesion. No bleeding present. Multiple splinter hemorrhages on bilateral fingers and toes and surrounding ecchymosis. New petechiae on upper and lower extremities bilaterally today. EYES: Extraocular motions intact. ENT: Moist mucous membranes. NECK: No JVD or lymphadenopathy. CARDIOVASCULAR: Tachycardic rate with normal rhythm. Grade 3/6 systolic murmur. RESPIRATORY: Crackles bilaterally. No accessory muscle use. NC in place. GASTROINTESTINAL: Abdomen non-tender. MUSCULOSKELETAL: Edematous (pitting) extremities. NEUROLOGICAL: Drowsy but arousable. Still closes her eyes during conversation but is able to stay awake. Normal speech. 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 Poor echocardiogram, severe tricuspid insufficiency, pulmonary hypertension and patent foramen ovale were noted. Widespread infection to the lungs, brain, hip, multiple skin sites, and possibly other areas of the body. Patient is progressively heading towards renal failure. She is fluid positive, with significant edema being treated w/IV lasix. Right hip joint was aspirated by IR. ID was consulted. Serial blood cultures being monitored. Nephrology, orthopedics, and cardiology were also consulted. Due to the progressive nature of the disease spread, palliative was consulted. Current consensus is to continue IV antibiotics unless a major setback in her condition arises; will then transition to comfort measures. Will continue aggressive treatment. Discharge Planning Discharge pending negative blood cultures, anticipate discharging home on IV antibiotics x 8 weeks. (Yi Harvey MD, R3) Attending Attestation Case reviewed and discussed with the resident team. Agree with plan of care as discussed with me and documented in the resident note. (Tessie Siegel MD) Problem List: (1) Severe sepsis with acute organ dysfunction due to Staphylococcus species ICD Codes: A41.2 - Sepsis due to unspecified staphylococcus; R65.20 - Severe sepsis without septic shock Status: Acute Plan: Patient with history of endocarditis and septic pulmonary emboli 11/2016 and 12/2016. Current symptoms started after relapse with IV heroin. HIV, hepatitis panel negative Showing clinical improvement. Tricuspid endocarditis with septic pulmonary emboli, left thigh muscle abscess, right hip joint effusion, brain abscess, L5-S1 discitis, pyelonephritis/renal infarction s/p right hip aspiration draining 4ml of yellow purulent appearing fluid on by Dr. Gilliland Unable to drain muscle abscess Leukocytosis resolved CRP remains elevated at 13 ESR remains elevated >140 07/12 Sputum culture growing harrington sensitive staph aureus 07/10 urine culture growing 50-100,000 CFU/mL mixed gram positive brittni 07/10 CTA: widespread patchy cavitary pneumonia of both lung on the basis of septic emboli 07/11 Wound culture growing harrington sensitive staph aureus and beta strep Group F 07/11 Echo shows vegetation on the tricuspid valve, pulmonary valve regurg 07/10 Blood cultures staph aureus x 4 07/12 Blood cultures staph aureus and viridans strep x 2 07/14 Blood cultures staph aureus 07/15 Blood cultures no growth 07/15 KALIN tricuspid vegetation, severe tricuspid regurg, small PFO with right to left shunt (potential source for systemic emboli) 07/16 Synovial fluid culture staph aureus 07/19 Blood cultures pending 07/19 VQ scan: septic emboli This is a terminal condition with life expectancy no more than 6 months. Discharge pending negative blood cultures, to complete 8 weeks of IV antibiotics as outpatient. Plan: - Palliative care consulted- appreciate assistance and recommendations - ID consulted, appreciate assistance * Continue Oxacillin 2g IV Q4H (started 07/12) - Follow cultures - Con't to provide Lasix for anasarca For pain: - Oxycodone 5 mg Q4H PRN pain 3-5 - Oxycodone 10 mg Q4H PRN for pain 6-10 - Morphine 2 mg Q4H IV for pain PRN breakthrough Imagin/19 Hip MRI small moderate right hip joint effusion and small muscular abscess in the proximal left thigh adjacent to the left femoral head * CTA: No PE. Widespread patchy cavitary pneumonia both lungs and probable on the basis of septic emboli. Nonspecific hepatosplenomegaly. Probable tricuspid regurgitation. * 07/10 CXR: Patchy cavitary pneumonia, fairly stable on the right but substantially worse on the left * Lower extremity ultrasound: Negative for venous thrombosis * KALIN 07/15 confirms right-sided endocarditis with severe tricuspid regurgitation (w/mobile vegetation on tricuspid valve), moderate to severe pulmonary hypertension, and no other valvular vegetation.A patent foramen ovale is present with a [id number] shunt demonstrated by color flow Doppler interrogation. * 07/16 Brain MRI: 2 areas of central ring enhancement * 07/16 Spine MRI: discitis involving L5-S1, possible right renal infarction versus focal pyelonephritis (2) Endocarditis of tricuspid valve ICD Codes: I36.8 - Other nonrheumatic tricuspid valve disorders Status: Acute Plan: See above (3) Anemia ICD Codes: D64.9 - Anemia, unspecified Status: Acute Plan: Baseline hemoglobin around 13.1 per chart review S/p 2 units transfusion on 07/16, 1 unit on 07/18, 07/19 Secondary to bleeding from multiple sites/severe infection Known sources: hemoptysis and vaginal bleeding Transfuse as needed (Hgb less than or equal to 7) , monitor daily CBCs and coag profile (4) Vaginal bleeding ICD Codes: N93.9 - Abnormal uterine and vaginal bleeding, unspecified Plan: Differential: Irregular menstrual bleeding versus infection v bleeding diathesis 2/2 endocarditis and sepsis S/p transfusion patient 2 units to 8.5 from 7.0 Cultures of endocervix ordered and pending (5) Altered mental status ICD Codes: R41.82 - Altered mental status, unspecified (6) Anasarca ICD Codes: R60.1 - Generalized edema Plan: Continue to monitor Lasix IV 40 mg BID (7) Cavitary pneumonia ICD Codes: J18.9 - Pneumonia, unspecified organism; J98.4 - Other disorders of lung Status: Acute Plan: W/hemoptysis (8) Acute renal failure ICD Codes: N17.9 - Acute kidney failure, unspecified Status: Acute Plan: consult Nephrology appreciate recommendations (9) Muscle abscess ICD Codes: M62.89 - Other specified disorders of muscle Status: Acute (10) Labial swelling ICD Codes: N94.89 - Other specified conditions associated with female genital organs and menstrual cycle Plan: Unilateral, affecting the right labia Soft tissue US shows phlegmon (11) Yumiko infection of genital region ICD Codes: B37.49 - Other urogenital candidiasis Plan: Nystatin powder to 12 hours to right inguinal region (12) IVDU (intravenous drug user) ICD Codes: F19.90 - Other psychoactive substance use, unspecified, uncomplicated Status: Chronic Plan: clonidine 0.1 mg every 6 hours when necessary for agitation (13) Nutrition, metabolism, and development symptoms ICD Codes: R63.8 - Other symptoms and signs concerning food and fluid intake Status: Acute Plan: Diet: Regular Electrolytes: continue to monitor and replete PRN Fluids: PO DVT PPX: SCDs, chemical anticoagulation contraindicated in the setting of endocarditis. (Yi Harvey MD, R3) Problem Qualifiers (1) Anemia: Qualified Codes: D64.9 - Anemia, unspecified (2) Altered mental status: Qualified Codes: R40.4 - Transient alteration of awareness (3) Acute renal failure: Qualified Codes: N17.9 - Acute kidney failure, unspecified Yi Harvey MD, R3 Jul 20, 2017 08:31 Tessie Siegel MD Jul 20, 2017 15:33
[2017-07-20] MEDS: SODIUM CHLORIDE 0.9% FLUSH 10 ML FLUSH IV FLUSH SCH ×2 (09:00→20:57)
[2017-07-20] MEDS: clonazePAM 1 MG TAB PO SCH ×2 (12:12→20:57)
[2017-07-20] MEDS: CALCIUM CARBONATE 1.25 GM (CA 500 MG) TAB PO SCH (12:13)
[2017-07-20] MEDS: FUROSEMIDE 40 MG TAB PO SCH ×2 (12:17→18:15)
[2017-07-20] MEDS: NYSTATIN 100,000 U/GM PWD 15 GM BTL TOPICAL SCH ×2 (13:21→20:59)
--- NOTE | 2017-07-20 14:15 | HHI.NPPN ---
Subjective History of Present Illness 26-year-old female with history of endocarditis and IV drug use and anxiety. Presented here today from the [facility] clinic due to worsening generalized body aches, fatigue, cough, painful fingers and toes. Symptoms started about 1 week ago and have progressively worsened. Patient reports that she was previously clean rom IV drug use for 3 years but had relapse about 1 week ago. Used IV heroin. Nephrology is consulted for acute kidney injury with creatinine of 3.97 and GFR of 14 ml/min. Additional Remarks Patient is alert and oriented. SOB has improved. Edema continues. Review of Systems General Constitutional: Fatigue Cardiovascular Cardiac: Edema, FAULKNER Objective Data Data Vital Signs Date Time Temp Pulse Resp B/P (MAP) Pulse Ox O2 Delivery O2 Flow Rate FiO2 07/20/17 12:00 98.4 112 16 98/55 (69) 92 07/20/17 08:33 97 Nasal Cannula 2.00 07/20/17 08:00 98.7 110 16 109/60 (76) 95 07/20/17 04:00 98.1 102 19 96/55 (69) 97 07/20/17 01:12 97 Nasal Cannula 2.00 07/19/17 23:45 112 18 104/69 (81) 98 07/19/17 22:00 97.2 122 19 109/64 (79) 91 07/19/17 20:00 Nasal Cannula 2.00 07/19/17 20:00 98.2 126 19 89/55 (66) 98 07/19/17 17:10 2.00 07/19/17 16:00 98.3 113 19 108/56 (73) 99 07/19/17 14:40 16 -: 07/20/17 0652 07/20/17 0652 Microbiology 07/19/17 Aerobic Blood Culture - Preliminary, Resulted NO GROWTH IN 1 DAY 07/19/17 Anaerobic Blood Culture - Preliminary, Resulted NO GROWTH IN 1 DAY 07/19/17 Aerobic Blood Culture - Preliminary, Resulted NO GROWTH IN 1 DAY 07/19/17 Anaerobic Blood Culture - Preliminary, Resulted NO GROWTH IN 1 DAY Physical Exam General Appearance: No Acute Distress, Comfortable Eyes Eye Exam: Pupils Equal Throat Throat Exam: Oral Mucosa Miston & Moist Neck Neck Exam: Neck Supple Pulmonary Resp Exam: Breath Sounds Equal, No Distress, Decreased Bases Cardiology CV Exam: Regular, Normal Sinus Rhythm Gastrointestinal/Abdomen GI Exam: Soft, Non-Tender, Bowel Sounds Present Extremeties Extremities Exam: Moderate Edema Neurologic Neuro Exam: Alert, Awake Psychiatric Psych Exam: Appropriate Responses Assessment/Plan Problem List: (1) ENRICO (acute kidney injury) ICD Codes: N17.9 - Acute kidney failure, unspecified Plan: Renal US. No acute findings. Mildly increased renal echogenicity characteristic of medical renal disease. ENRICO most likely pre renal Creatinine stable. Baseline in 01/13 was creatinine of less than 1 Plan Creatinine is 1.5 Fluctuation noted was 1.6 yesterday with good UOP Continue Lasix has been changed to PO 40 mg BID for anasarca. Serology negative Continue antibiotics and follow the urine out put and BMP. 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 Improved now (4) Thrombocytopenia ICD Codes: D69.6 - Thrombocytopenia, unspecified Plan: improved (5) Anemia ICD Codes: D64.9 - Anemia, unspecified Status: Acute (6) Endocarditis ICD Codes: I38 - Endocarditis, valve unspecified Status: Acute Problem Qualifiers (1) Anemia: Qualified Codes: D64.9 - Anemia, unspecified (2) Endocarditis: Qualified Codes: I33.0 - Acute and subacute infective endocarditis Jorge Alberto Mckeon MD Jul 20, 2017 14:15
[2017-07-20] MEDS: ONDANSETRON HCL 4 MG/2 ML VIAL IV PUSH PRN (18:15)
--- NOTE | 2017-07-20 19:24 | EKG ---
Date Performed: 07/19/2017 Time Performed: 18:47:31 PTAGE: 26 years EKG: SINUS TACHYCARDIA BORDERLINE RIGHT AXIS DEVIATION LOW QRS VOLTAGE IN PRECORDIAL LEADS POSSI BLE ANTERIOR MYOCARDIAL INFARCTION , PROBABLY OLD ABNORMAL RHYTHM ECG Since PREVIOUS TRACING , no significant change noted PREVIOUS TRACIN07/10/2017 19.04 DOCTOR: Hansa Peguero Interpretating Date/Time 07/20/2017 19:22:52
[2017-07-21] VITALS (11 sets, daily range): BP systolic 91–122; BP diastolic 52–73; PULSE 96–112; RESP 15–20; TEMP 97.4–100.7; O2SAT 92–100
[2017-07-21] MEDS: RESP: IPRATROPIUM 0.5 MG/2.5 ML NEB NEB SCH ×4 (00:11→11:58)
[2017-07-21] MEDS: SODIUM CHLORIDE 0.9% FLUSH 10 ML FLUSH IV FLUSH PRN (00:17)
[2017-07-21] MEDS: MORPHINE SULFATE 2 MG/ML INJ IV PUSH PRN (00:17)
[2017-07-21] MEDS: MENTHOL LOZENGE BUCCAL PRN ×3 (02:28→21:39)
[2017-07-21] MEDS: OXACILLIN INJ 2 GM in SODIUM CHLORIDE 0.9% INJ 100 ML IV SCH ×6 (02:28→23:47)
[2017-07-21] MEDS: ACETAMINOPHEN 325 MG TAB PO PRN (05:53)
[2017-07-21] MEDS: LORazepam 1 MG TAB PO PRN (05:55)
[2017-07-21] MEDS: MUPIROCIN 2% OINT 22 GM TUBE TOPICAL SCH ×3 (06:00→20:39)
[2017-07-21] MEDS: FUROSEMIDE 40 MG TAB PO SCH ×2 (09:00→17:32)
[2017-07-21] MEDS: SODIUM CHLORIDE 0.9% FLUSH 10 ML FLUSH IV FLUSH SCH ×2 (09:00→20:38)
[2017-07-21] MEDS: clonazePAM 1 MG TAB PO SCH ×2 (09:00→20:38)
[2017-07-21 09:43] LABS: HEMOGLOBIN 8.6 GM/DL (11.6-15.3); MEAN CELL VOLUME 85.8 FL (80.0-100.0); MEAN CORPUSCULAR HEMOGLOBIN 29.5 PG (27.0-34.0); MEAN CORPUSCULAR HGB CONC 34.4 % (32.0-36.0); PLATELET COUNT 227 TH/MM3 (150-450); RED BLOOD COUNT 2.91 MIL/MM3 (4.00-5.30); WHITE BLOOD COUNT 6.3 TH/MM3 (4.0-11.0)
[2017-07-21 10:07] LABS: ALBUMIN 1.2 GM/DL (3.4-5.0); BICARBONATE 26.1 MEQ/L (21.0-32.0); BLOOD UREA NITROGEN 25 MG/DL (7-18); CALCIUM 7.6 MG/DL (8.5-10.1); CHLORIDE 99 MEQ/L (98-107); CREATININE 1.55 MG/DL (0.50-1.00); GLOMERULAR FILTRATION RATE 40 ML/MIN (>89); GLUCOSE,RANDOM 91 MG/DL (74-106); SODIUM (NA) 133 MEQ/L (136-145)
[2017-07-21 10:17] LABS: ALKALINE PHOSPHATASE 192 U/L (45-117); ALT (GPT) 15 U/L (10-53); AST (GOT) 24 U/L (15-37); TOTAL BILIRUBIN ADULT 0.9 MG/DL (0.2-1.0); TOTAL PROTEIN 6.6 GM/DL (6.4-8.2)
--- NOTE | 2017-07-21 10:27 | HHI.FPPN ---
Subjective Remarks Patient states she is ok today. Is more alert and awake. On breathing treatment , satting 93 % on 2 L NC O2. Febrile overnight at 100.7 max. No new complaints. States she is still coughing up blood "and other stuff." Shows me her suction tube, appears to have bloody and off-white colored debris. Concern for possibly coughing up what looks like food. Patient states her vaginal bleeding is scant. Denies itchiness. (Rosamaria Sanford MD R1) Objective Vitals Vital Signs Date Time Temp Pulse Resp B/P (MAP) Pulse Ox O2 Delivery O2 Flow Rate FiO2 07/21/17 08:25 97 Nasal Cannula 2.00 07/21/17 08:00 97.6 101 15 101/55 (70) 94 07/21/17 04:30 100.7 109 20 91/55 (67) 92 07/21/17 03:52 107 07/21/17 00:14 99.2 112 20 118/62 (80) 92 07/20/17 23:53 111 07/20/17 21:00 Nasal Cannula 2.00 07/20/17 20:54 94 Nasal Cannula 3.00 07/20/17 20:51 97.7 109 20 97/55 (69) 94 07/20/17 19:57 106 07/20/17 16:00 99.9 108 15 97/56 (70) 95 07/20/17 12:00 98.4 112 16 98/55 (69) 92 I/O 07/20/17 07/20/17 07/20/17 07/21/17 07/21/17 07/21/17 07:00 15:00 23:00 07:00 15:00 23:00 Intake Total 880 ml 1120 ml 200 ml Output Total 1500 ml 500 ml Balance 880 ml -380 ml -300 ml Intake Oral 680 ml 1120 ml IV Total 200 ml 200 ml Output Urine Total 1500 ml 500 ml # Voids 10 # Bowel Movements 0 1 1 (Rosamaria Sanford MD R1) Result Diagram: 07/21/17 0900 07/21/17 0900 Objective Remarks GENERAL: This is an acutely ill appearing female pt. Generally edematous, more alert today. SKIN: On the medial aspect of the left lower leg there is a 1x1 cm scabbed, healing lesion. No bleeding present. Multiple splinter hemorrhages on bilateral fingers and toes and surrounding ecchymosis. Stable petechiae on upper and lower extremities bilaterally today. EYES: Extraocular motions intact. ENT: Moist mucous membranes. CARDIOVASCULAR: Tachycardic rate with normal rhythm. Grade 3/6 systolic murmur. RESPIRATORY: Crackles bilaterally. No accessory muscle use. NC in place. GASTROINTESTINAL: Abdomen non-tender. MUSCULOSKELETAL: Edematous (pitting) extremities. NEUROLOGICAL: Able to maintain conversation. Normal speech. : right labial phlegmon stable. Minimal bleeding seen on pad. 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 Poor echocardiogram, severe tricuspid insufficiency, pulmonary hypertension and patent foramen ovale were noted. Widespread infection to the lungs, brain, hip, multiple skin sites, and possibly other areas of the body. Patient appeared to be heading towards renal failure. She is fluid positive with significant edema being treated w/IV lasix. Right hip joint was aspirated by IR. ID was consulted. Serial blood cultures being monitored. Nephrology, orthopedics, and cardiology were also consulted. Due to the progressive nature of the disease spread, palliative was consulted. Current consensus is to continue IV antibiotics unless a major setback in her condition arises; will then transition to comfort measures. Will continue aggressive treatment. Discharge Planning Cultures from 07/19 have been clear the past 48 hours. Plan for discharge in a few days on IV antibiotics x 8 weeks for aggressive therapy per ID recs. PICC line placement ordered, as well as PT. Per conversation w/case management today , patient's insurance can allow for her to have home health while receiving IV antibiotics and care/monitoring for her multiple complications. She will be discharged home w/lasix and pain meds she has been receiving in the hospital ( sans morphine). (Rosamaria Sanford MD R1) Attending Attestation Patient seen and examined. Case reviewed and discussed with the resident team. Agree with plan of care as discussed with me and documented in the resident note. Patient clinically stable. No overnight events. Shreyas exam is unchanged from yesterday - -she is moving air in her lungs and appears a little more comfortable today. Ideally this patient would be able to go home for IV antibiotics. We are not providing her with other IV medications at this time. Will plan for this unless there is a large medical setback in her clinical course. (Tessie Siegel MD) Problem List: (1) Severe sepsis with acute organ dysfunction due to Staphylococcus species ICD Codes: A41.2 - Sepsis due to unspecified staphylococcus; R65.20 - Severe sepsis without septic shock Status: Acute Plan: Patient with history of endocarditis and septic pulmonary emboli 11/2016 and 12/2016. Current symptoms started after relapse with IV heroin. HIV, hepatitis panel negative Tricuspid endocarditis with septic pulmonary emboli, left thigh muscle abscess, right hip joint effusion, brain abscess, L5-S1 discitis, pyelonephritis/renal infarction s/p right hip aspiration draining 4ml of yellow purulent appearing fluid on by Dr. Gilliland Phlegmon embedded in muscle associated w/r. hip joint Labial phlegmon Leukocytosis resolved CRP remains elevated at 13 ESR remains elevated >140 07/12 Sputum culture growing harrington sensitive staph aureus 07/10 urine culture growing 50-100,000 CFU/mL mixed gram positive brittni 07/10 CTA: widespread patchy cavitary pneumonia of both lung on the basis of septic emboli 07/11 Wound culture growing harrington sensitive staph aureus and beta strep Group F 07/11 Echo shows vegetation on the tricuspid valve, pulmonary valve regurg 07/10 Blood cultures staph aureus x 4 07/12 Blood cultures staph aureus and viridans strep x 2 07/14 Blood cultures staph aureus 07/15 Blood cultures no growth 07/15 KALIN tricuspid vegetation, severe tricuspid regurg, small PFO with right to left shunt (potential source for systemic emboli) 07/16 Synovial fluid culture staph aureus 07/19 Blood cultures negative for 48 hours 07/19 VQ scan: septic emboli This is a terminal condition with life expectancy no more than 6 months. Last cultures ordered have been negative; plan for discharge Showing clinical improvement today Plan: - PICC line ordered for continued IV abx after discharge - CM consulted - appreciate assistance in discharge planning - Palliative care consulted- appreciate assistance and recommendations - ID consulted, appreciate assistance * Continue Oxacillin 2g IV Q4H (started 07/12) - Con't to provide Lasix for anasarca For pain: - Oxycodone 5 mg Q4H PRN pain 3-5 - Oxycodone 10 mg Q4H PRN for pain 6-10 - Morphine 2 mg Q4H IV for pain PRN breakthrough Imagin/19 Hip MRI small moderate right hip joint effusion and small muscular abscess in the proximal left thigh adjacent to the left femoral head * CTA: No PE. Widespread patchy cavitary pneumonia both lungs and probable on the basis of septic emboli. Nonspecific hepatosplenomegaly. Probable tricuspid regurgitation. * 07/10 CXR: Patchy cavitary pneumonia, fairly stable on the right but substantially worse on the left * Lower extremity ultrasound: Negative for venous thrombosis * KALIN 07/15 confirms right-sided endocarditis with severe tricuspid regurgitation (w/mobile vegetation on tricuspid valve), moderate to severe pulmonary hypertension, and no other valvular vegetation.A patent foramen ovale is present with a [id number] shunt demonstrated by color flow Doppler interrogation. * 07/16 Brain MRI: 2 areas of central ring enhancement * 07/16 Spine MRI: discitis involving L5-S1, possible right renal infarction versus focal pyelonephritis (2) Endocarditis of tricuspid valve ICD Codes: I36.8 - Other nonrheumatic tricuspid valve disorders Status: Acute Plan: See above (3) Anemia ICD Codes: D64.9 - Anemia, unspecified Status: Acute Plan: Baseline hemoglobin around 13.1 per chart review S/p 2 units transfusion on 07/16, 1 unit on 07/18, 07/19 Secondary to bleeding from multiple sites/severe infection Known sources: hemoptysis and vaginal bleeding Stable Transfuse as needed (Hgb less than or equal to 7) , monitor daily CBCs and coag profile (4) Vaginal bleeding ICD Codes: N93.9 - Abnormal uterine and vaginal bleeding, unspecified Plan: Differential: Irregular menstrual bleeding versus infection v bleeding diathesis 2/2 endocarditis and sepsis S/p transfusion patient 2 units to 8.5 from 7.0 Cultures of endocervix ordered and pending (5) Altered mental status ICD Codes: R41.82 - Altered mental status, unspecified (6) Anasarca ICD Codes: R60.1 - Generalized edema Plan: Continue to monitor Lasix IV 40 mg BID (7) Cavitary pneumonia ICD Codes: J18.9 - Pneumonia, unspecified organism; J98.4 - Other disorders of lung Status: Acute Plan: W/hemoptysis Bedside swallow study ordered due to concern for patient possibly coughing up food Ipratropium neb Q4H changed to Albuterol Q6H (8) Acute renal failure ICD Codes: N17.9 - Acute kidney failure, unspecified Status: Acute Plan: consult Nephrology appreciate recommendations (9) Muscle abscess ICD Codes: M62.89 - Other specified disorders of muscle Status: Acute (10) Labial swelling ICD Codes: N94.89 - Other specified conditions associated with female genital organs and menstrual cycle Plan: Unilateral, affecting the right labia Soft tissue US shows phlegmon (11) Yumiko infection of genital region ICD Codes: B37.49 - Other urogenital candidiasis Plan: Nystatin powder to 12 hours to right inguinal region (12) IVDU (intravenous drug user) ICD Codes: F19.90 - Other psychoactive substance use, unspecified, uncomplicated Status: Chronic Plan: clonidine 0.1 mg every 6 hours when necessary for agitation (13) Nutrition, metabolism, and development symptoms ICD Codes: R63.8 - Other symptoms and signs concerning food and fluid intake Status: Acute Plan: Diet: Regular Electrolytes: continue to monitor and replete PRN Fluids: PO DVT PPX: SCDs, chemical anticoagulation contraindicated in the setting of endocarditis. (Rosamaria Sanford MD R1) Problem Qualifiers (1) Anemia: Qualified Codes: D64.9 - Anemia, unspecified (2) Altered mental status: Qualified Codes: R40.4 - Transient alteration of awareness (3) Acute renal failure: Qualified Codes: N17.9 - Acute kidney failure, unspecified Rosamaria Sanford MD R1 Jul 21, 2017 10:27 Tessie Siegel MD Jul 21, 2017 14:34
[2017-07-21] MEDS: CALCIUM CARBONATE 1.25 GM (CA 500 MG) TAB PO SCH (13:28)
[2017-07-21] MEDS: NYSTATIN 100,000 U/GM PWD 15 GM BTL TOPICAL SCH ×2 (13:29→20:39)
[2017-07-21] MEDS ORDERED: Mupirocin 2% Oint TOPICAL (13:33)
[2017-07-21] MEDS ORDERED: HALLLOZ2 BUCCAL (13:33)
[2017-07-21] MEDS ORDERED: Nystatin Powder TOPICAL (13:33)
[2017-07-21] MEDS ORDERED: OXYC-392 PO ×2 (13:33)
[2017-07-21] MEDS ORDERED: FURO40TA PO (13:33)
[2017-07-21] MEDS ORDERED: ZOFR4TAB PO (13:33)
--- NOTE | 2017-07-21 13:34 | HHI.DCPOC ---
Discharge Care Plan Diagnosis: (1) Severe sepsis with acute organ dysfunction due to Staphylococcus species (2) Endocarditis of tricuspid valve Goals to Promote Your Health * To prevent worsening of your condition and complications * To maintain your health at the optimal level Directions to Meet Your Goals Take your medications as prescribed - Take IV oxacillin for 8 weeks. Follow your dietary instruction Follow activity as directed Keep your appointments as scheduled Take your immunizations and boosters as scheduled If your symptoms worsen call your PCP, if no PCP go to Urgent Care Center or Emergency Room Smoking is Dangerous to Your Health. Avoid second hand smoke Call the 24-hour hour crisis hotline for domestic abuse at Rosamaria Sanford MD R1 Jul 21, 2017 13:34
--- NOTE | 2017-07-21 13:36 | HHI.FF ---
Face to Face Verification Diagnosis: (1) Severe sepsis with acute organ dysfunction due to Staphylococcus species (2) Endocarditis of tricuspid valve Physical Therapy Order: Evaluate and Treat Home Health Nursing Order: Medical education Signs/symptoms of disease process Wound care and dressing changes Nursing assessment with vital signs IV medication administration I have seen patient Nya Zee on 07/21/17. My clinical findings support the need for the requested home health care services because: Ltd mobility - disease progression Limited ability to care for self I certify that my clinical findings support that this patient is homebound because: Impaired cognitive ability/safety Rosamaria Sanford MD R1 Jul 21, 2017 13:36
[2017-07-21] MEDS: RESP: ALBUTEROL 1.25 MG/3 ML NEB (SCH) NEB ×2 (16:59→22:17)
[2017-07-21] MEDS: diphenhydrAMINE HCL 25 MG CAP PO PRN (21:40)
[2017-07-22] VITALS (8 sets, daily range): BP systolic 94–112; BP diastolic 53–67; PULSE 98–125; RESP 17–20; TEMP 97.6–99.9; O2SAT 91–97
[2017-07-22] MEDS: LORazepam 1 MG TAB PO PRN ×2 (01:48→17:00)
[2017-07-22] MEDS: BENZONATATE 100 MG CAP PO PRN ×3 (01:49→19:49)
[2017-07-22] MEDS: SODIUM CHLORIDE 0.9% FLUSH 10 ML FLUSH IV FLUSH PRN (02:25)
[2017-07-22] MEDS: ONDANSETRON HCL 4 MG/2 ML VIAL IV PUSH PRN ×2 (02:25→17:04)
[2017-07-22] MEDS: OXACILLIN INJ 2 GM in SODIUM CHLORIDE 0.9% INJ 100 ML IV SCH ×6 (02:26→23:37)
[2017-07-22] MEDS: RESP: ALBUTEROL 1.25 MG/3 ML NEB (SCH) NEB ×2 (04:51→08:16)
[2017-07-22] MEDS: MUPIROCIN 2% OINT 22 GM TUBE TOPICAL SCH ×3 (06:06→22:00)
[2017-07-22 07:19] LABS: ALBUMIN 1.3 GM/DL (3.4-5.0); AST (GOT) 27 U/L (15-37); BICARBONATE 25.3 MEQ/L (21.0-32.0); BLOOD UREA NITROGEN 22 MG/DL (7-18); CALCIUM 7.8 MG/DL (8.5-10.1); CHLORIDE 98 MEQ/L (98-107); CREATININE 1.44 MG/DL (0.50-1.00); GLOMERULAR FILTRATION RATE 44 ML/MIN (>89); GLUCOSE,RANDOM 97 MG/DL (74-106); SODIUM (NA) 134 MEQ/L (136-145)
[2017-07-22 07:21] LABS: ALT (GPT) 17 U/L (10-53); AUTOMATED NEUTROPHIL # 4.9 TH/MM3 (1.8-7.7); BASOPHIL # 0.1 TH/MM3 (0-0.2); BASOPHIL % 1.4 % (0.0-2.0); EOSINOPHIL # 0.1 TH/MM3 (0-0.4); EOSINOPHIL % 0.8 % (0.0-4.0); HEMATOCRIT 23.7 % (35.0-46.0); HEMOGLOBIN 8.2 GM/DL (11.6-15.3); LYMPH % 14.5 % (9.0-44.0); MEAN CELL VOLUME 85.2 FL (80.0-100.0); MEAN CORPUSCULAR HEMOGLOBIN 29.6 PG (27.0-34.0); MEAN CORPUSCULAR HGB CONC 34.7 % (32.0-36.0); MEAN PLATELET VOLUME 7.1 FL (7.0-11.0); MONO % 10.8 % (0.0-8.0); MONOCYTE # 0.7 TH/MM3 (0-0.9); NEUT % 72.5 % (16.0-70.0); PLATELET COUNT 277 TH/MM3 (150-450); RED BLOOD COUNT 2.78 MIL/MM3 (4.00-5.30); RED CELL DISTRIBUTION WIDTH 17.2 % (11.6-17.2); WHITE BLOOD COUNT 6.8 TH/MM3 (4.0-11.0)
[2017-07-22 07:22] LABS: ALKALINE PHOSPHATASE 192 U/L (45-117); TOTAL BILIRUBIN ADULT 0.8 MG/DL (0.2-1.0); TOTAL PROTEIN 6.7 GM/DL (6.4-8.2)
--- NOTE | 2017-07-22 08:36 | HHI.FPPN ---
Subjective Remarks Patient states she is feeling the same since yesterday, is ok. No problems eating or drinking, denies vomiting, dysphagia, or regurgitation. Believes she is coughing up food, points to her suctioning tube, states it has had to be changed several times. Wasn't able to sleep last night but doesn't know why, Tmax 99.9. Likes the albuterol Q6H breathing treatment better than ipratroprium Q4H. No other complaints or changes overnight. (Rosamaria Sanford MD R1) Objective Vitals Vital Signs Date Time Temp Pulse Resp B/P (MAP) Pulse Ox O2 Delivery O2 Flow Rate FiO2 07/22/17 08:17 92 Nasal Cannula 2.00 07/22/17 04:48 99.9 125 20 103/67 (79) 92 07/22/17 00:00 99.9 112 20 94/53 (67) 93 07/21/17 22:19 100 Nasal Cannula 2.00 07/21/17 21:45 Nasal Cannula 2.00 07/21/17 20:06 96 07/21/17 20:00 98.6 100 20 104/61 (75) 96 07/21/17 17:00 93 Nasal Cannula 2.00 07/21/17 16:00 98.2 110 16 122/73 (89) 95 07/21/17 12:00 97.4 98 17 97/52 (67) 93 07/21/17 08:25 97 Nasal Cannula 2.00 I/O 07/21/17 07/21/17 07/21/17 07/22/17 07/22/17 07/22/17 07:00 15:00 23:00 07:00 15:00 23:00 Intake Total 200 ml 1240 ml 200 ml Output Total 500 ml 400 ml 500 ml Balance -300 ml 840 ml -300 ml Intake Oral 1140 ml IV Total 200 ml 100 ml 200 ml Output Urine Total 500 ml 400 ml 500 ml # Bowel Movements 1 1 (Rosamaria Sanford MD R1) Result Diagram: 07/22/1725 07/22/17 0625 Objective Remarks GENERAL: This is an acutely ill appearing female pt. Generally edematous, more alert today. SKIN: On the medial aspect of the left lower leg there is a 1x1 cm scabbed, healing lesion. No bleeding present. Multiple splinter hemorrhages on bilateral fingers and toes and surrounding ecchymosis. Few small red papules on dorsal hands and on left lower leg. Patient states they are itchy, some excoriations and appearance of hyperkeratosis seen on the hands. EYES: Extraocular motions intact. ENT: Moist mucous membranes. CARDIOVASCULAR: Tachycardic rate with normal rhythm. Grade 3/6 systolic murmur. RESPIRATORY: Stable crackles bilaterally. No accessory muscle use. 2L NC in place. GASTROINTESTINAL: Abdomen non-tender. MUSCULOSKELETAL: Edematous (pitting) extremities. NEUROLOGICAL: Able to maintain conversation. Normal speech. 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 Poor echocardiogram, severe tricuspid insufficiency, pulmonary hypertension and patent foramen ovale were noted. Widespread infection to the lungs, brain, hip, multiple skin sites, and possibly other areas of the body. Patient appeared to be heading towards renal failure. She is fluid positive with significant edema being treated w/IV lasix. Right hip joint was aspirated by IR. ID was consulted. Serial blood cultures being monitored. Nephrology, orthopedics, and cardiology were also consulted. Due to the progressive nature of the disease spread, palliative was consulted. Current consensus is to continue IV antibiotics unless a major setback in her condition arises; will then transition to comfort measures. Will continue aggressive treatment. Discharge Planning Cultures from 07/19 have been clear the past 48 hours. Plan for discharge in a few days on IV antibiotics x 8 weeks for aggressive therapy per ID recs. PICC line placement will be ordered after neg blood cx for 3 days and ID and Nephro clearance. PT ordered. Per conversation w/case management today, patient's insurance can allow for her to have home health while receiving IV antibiotics and care/monitoring for her multiple complications. She will be discharged home w/lasix and pain meds she has been receiving in the hospital (sans morphine). (Rosamaria Sanford MD R1) Attending Attestation Patient seen and examined. Case reviewed and discussed with the resident team. Agree with plan of care as discussed with me and documented in the resident note. Patients clinical picture is really unchanged over the past couple of days. Her lungs continue to have diffuse crackles. Her anasarca has not improved. At this time will add thiazide diuretic to see if this will help relieve some of the volume overload, consider high dose loop diuretics. Pt is concerned about her sputum production -- she had a full swallow eval which demonstrated no evidence of aspiration. Doubt that her sputum contains food -- only particles from her lungs. DWPT that her sputum is not likely to resolve and may worsen. She feels a little better with the albuterol instead of the ipratropium. No other changes for now. Will monitor her clinical course closely. (Tessie Siegel MD) Problem List: (1) Severe sepsis with acute organ dysfunction due to Staphylococcus species ICD Codes: A41.2 - Sepsis due to unspecified staphylococcus; R65.20 - Severe sepsis without septic shock Status: Acute Plan: Patient with history of endocarditis and septic pulmonary emboli 11/2016 and 12/2016. Current symptoms started after relapse with IV heroin. HIV, hepatitis panel negative Tricuspid endocarditis with septic pulmonary emboli, left thigh muscle abscess, right hip joint effusion, brain abscess, L5-S1 discitis, pyelonephritis/renal infarction s/p right hip aspiration draining 4ml of yellow purulent appearing fluid on by Dr. Gilliland Phlegmon embedded in muscle associated w/r. hip joint Labial phlegmon Leukocytosis resolved CRP remains elevated at 13 ESR remains elevated >140 07/12 Sputum culture growing harrington sensitive staph aureus 07/10 urine culture growing 50-100,000 CFU/mL mixed gram positive brittni 07/10 CTA: widespread patchy cavitary pneumonia of both lung on the basis of septic emboli 07/11 Wound culture growing harrington sensitive staph aureus and beta strep Group F 07/11 Echo shows vegetation on the tricuspid valve, pulmonary valve regurg 07/10 Blood cultures staph aureus x 4 07/12 Blood cultures staph aureus and viridans strep x 2 07/14 Blood cultures staph aureus 07/15 Blood cultures no growth 07/15 KALIN tricuspid vegetation, severe tricuspid regurg, small PFO with right to left shunt (potential source for systemic emboli) 07/16 Synovial fluid culture staph aureus 07/19 VQ scan: septic emboli 07/19 Blood cultures negative for 48 hours This is a terminal condition with life expectancy no more than 6 months. Last cultures ordered have been negative for 48 hours; plan for discharge Plan: - PICC line will be ordered for continued IV abx after discharge after negative blood cx for 3 days - CM consulted - appreciate assistance in discharge planning - Palliative care consulted- appreciate assistance and recommendations - ID consulted, appreciate assistance * Continue Oxacillin 2g IV Q4H (started 07/12) - Con't to provide Lasix for anasarca For pain: - Oxycodone 5 mg Q4H PRN pain 3-5 - Oxycodone 10 mg Q4H PRN for pain 6-10 - Morphine 2 mg Q4H IV for pain PRN breakthrough Imagin/19 Hip MRI small moderate right hip joint effusion and small muscular abscess in the proximal left thigh adjacent to the left femoral head * CTA: No PE. Widespread patchy cavitary pneumonia both lungs and probable on the basis of septic emboli. Nonspecific hepatosplenomegaly. Probable tricuspid regurgitation. * 07/10 CXR: Patchy cavitary pneumonia, fairly stable on the right but substantially worse on the left * Lower extremity ultrasound: Negative for venous thrombosis * KALIN 07/15 confirms right-sided endocarditis with severe tricuspid regurgitation (w/mobile vegetation on tricuspid valve), moderate to severe pulmonary hypertension, and no other valvular vegetation.A patent foramen ovale is present with a [id number] shunt demonstrated by color flow Doppler interrogation. * 07/16 Brain MRI: 2 areas of central ring enhancement * 07/16 Spine MRI: discitis involving L5-S1, possible right renal infarction versus focal pyelonephritis (2) Endocarditis of tricuspid valve ICD Codes: I36.8 - Other nonrheumatic tricuspid valve disorders Status: Acute Plan: See above (3) Anemia ICD Codes: D64.9 - Anemia, unspecified Status: Acute Plan: Baseline hemoglobin around 13.1 per chart review S/p 2 units transfusion on 07/16, 1 unit on 07/18, 07/19 Secondary to bleeding from multiple sites/severe infection Known sources: hemoptysis and vaginal bleeding Stable Transfuse as needed (Hgb less than or equal to 7) , monitor daily CBCs and coag profile (4) Rash and nonspecific skin eruption ICD Codes: R21 - Rash and other nonspecific skin eruption Plan: hydrocortisone 0.5% cream to apply to rash on hands and lower leg (5) Altered mental status ICD Codes: R41.82 - Altered mental status, unspecified (6) Anasarca ICD Codes: R60.1 - Generalized edema Plan: Continue to monitor Lasix PO 40 mg BID (7) Cavitary pneumonia ICD Codes: J18.9 - Pneumonia, unspecified organism; J98.4 - Other disorders of lung Status: Acute Plan: W/hemoptysis Albuterol neb Q6H Speech consulted for swallow study ordered (8) Acute renal failure ICD Codes: N17.9 - Acute kidney failure, unspecified Status: Acute Plan: consult Nephrology appreciate recommendations (9) Muscle abscess ICD Codes: M62.89 - Other specified disorders of muscle Status: Acute (10) Labial swelling ICD Codes: N94.89 - Other specified conditions associated with female genital organs and menstrual cycle Plan: Unilateral, affecting the right labia Soft tissue US shows phlegmon (11) Yumiko infection of genital region ICD Codes: B37.49 - Other urogenital candidiasis Plan: Skin rash Nystatin powder to 12 hours to right inguinal region (12) Vaginal candidiasis ICD Codes: B37.3 - Candidiasis of vulva and vagina Plan: Cultures of endocervix positive for Yumiko Consider 3 treatments of oral fluconazole 150 mg q72 hours (13) IVDU (intravenous drug user) ICD Codes: F19.90 - Other psychoactive substance use, unspecified, uncomplicated Status: Chronic Plan: clonidine 0.1 mg every 6 hours when necessary for agitation (14) Nutrition, metabolism, and development symptoms ICD Codes: R63.8 - Other symptoms and signs concerning food and fluid intake Status: Acute Plan: Diet: Regular Electrolytes: continue to monitor and replete PRN Fluids: PO DVT PPX: SCDs, chemical anticoagulation contraindicated in the setting of endocarditis. (Rosamaria Sanford MD R1) Problem Qualifiers (1) Anemia: Qualified Codes: D64.9 - Anemia, unspecified (2) Altered mental status: Qualified Codes: R40.4 - Transient alteration of awareness (3) Acute renal failure: Qualified Codes: N17.9 - Acute kidney failure, unspecified Rosamaria Sanford MD R1 Jul 22, 2017 08:36 Tessie Siegel MD Jul 22, 2017 18:46
[2017-07-22] MEDS: NYSTATIN 100,000 U/GM PWD 15 GM BTL TOPICAL SCH ×2 (08:38→21:00)
[2017-07-22] MEDS: CALCIUM CARBONATE 1.25 GM (CA 500 MG) TAB PO SCH (08:38)
[2017-07-22] MEDS: FUROSEMIDE 40 MG TAB PO SCH ×2 (08:38→17:00)
[2017-07-22] MEDS: clonazePAM 1 MG TAB PO SCH ×2 (08:38→19:50)
[2017-07-22] MEDS: SODIUM CHLORIDE 0.9% FLUSH 10 ML FLUSH IV FLUSH SCH ×2 (08:38→19:51)
[2017-07-22] MEDS ORDERED: HYDROCORTISONE 0.5% CREAM 30 GM TOPICAL PRN (09:00)
--- NOTE | 2017-07-22 11:10 | HHI.NPPN ---
Subjective Renal Failure: Acute History of Present Illness 26-year-old female with history of endocarditis and IV drug use and anxiety. Presented here today from the [facility] clinic due to worsening generalized body aches, fatigue, cough, painful fingers and toes. Symptoms started about 1 week ago and have progressively worsened. Patient reports that she was previously clean rom IV drug use for 3 years but had relapse about 1 week ago. Used IV heroin. Nephrology is consulted for acute kidney injury with creatinine of 3.97 and GFR of 14 ml/min. Additional Remarks Persistent edema. Family at bedside. (Tasia Arvizu) Review of Systems General Constitutional: Fatigue (Tasia Arvizu) Cardiovascular Cardiac: Edema, FAULKNER (Tasia Arvizu) Objective Data Data Vital Signs Date Time Temp Pulse Resp B/P (MAP) Pulse Ox O2 Delivery O2 Flow Rate FiO2 07/22/17 08:17 92 Nasal Cannula 2.00 07/22/17 08:00 Nasal Cannula 2.00 07/22/17 08:00 98.1 108 17 96/58 (71) 92 07/22/17 04:48 99.9 125 20 103/67 (79) 92 07/22/17 00:00 99.9 112 20 94/53 (67) 93 07/21/17 22:19 100 Nasal Cannula 2.00 07/21/17 21:45 Nasal Cannula 2.00 07/21/17 20:06 96 07/21/17 20:00 98.6 100 20 104/61 (75) 96 07/21/17 17:00 93 Nasal Cannula 2.00 07/21/17 16:00 98.2 110 16 122/73 (89) 95 07/21/17 12:00 97.4 98 17 97/52 (67) 93 (Tasia Arvizu) -: 07/22/17 0625 07/22/17 0625 Physical Exam General Appearance: No Acute Distress, Comfortable (Tasia Arvizu) Eyes Eye Exam: Pupils Equal (Tasia Arvizu) Throat Throat Exam: Oral Mucosa Sunbright & Moist (Tasia Arvizu) Neck Neck Exam: Neck Supple (Tasia Arvizu) Pulmonary Resp Exam: Breath Sounds Equal, No Distress, Decreased Bases (Tasia Arvizu) Cardiology CV Exam: Regular, Normal Sinus Rhythm (Tasia Arvizu) Gastrointestinal/Abdomen GI Exam: Soft, Non-Tender, Bowel Sounds Present (Tasia Arvizu) Extremeties Extremities Exam: Moderate Edema (Tasia Arvizu) Neurologic Neuro Exam: Alert, Awake (Tasia Arvizu) Psychiatric Psych Exam: Appropriate Responses (Tasia Arvizu) Assessment/Plan Problem List: (1) ENRICO (acute kidney injury) ICD Codes: N17.9 - Acute kidney failure, unspecified Plan: Renal US. No acute findings. Mildly increased renal echogenicity characteristic of medical renal disease. ENRICO most likely pre renal Creatinine stable. Baseline in 01/13 was creatinine of less than 1 Plan Creatinine is 1.4 with good UOP Continue Lasix has 40 mg BID for anasarca. Serology negative Continue antibiotics and follow the urine out put and BMP. 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 Improved now (4) Thrombocytopenia ICD Codes: D69.6 - Thrombocytopenia, unspecified Plan: improved (5) Anemia ICD Codes: D64.9 - Anemia, unspecified Status: Acute (6) Endocarditis ICD Codes: I38 - Endocarditis, valve unspecified Status: Acute (Tasia Arvizu) Problem List: (1) ENRICO (acute kidney injury) ICD Codes: N17.9 - Acute kidney failure, unspecified Plan: Renal US. No acute findings. Mildly increased renal echogenicity characteristic of medical renal disease. ENRICO most likely pre renal Creatinine stable. Baseline in 01/13 was creatinine of less than 1 Plan Creatinine is 1.4 with good UOP Continue Lasix has 40 mg BID for anasarca. Serology negative Continue antibiotics and follow the urine out put and BMP. Patient seen and examined, agree with above. Has increasing edema, partly also due to low Albumin. Change Lasix to IV and also IV Albumin. Follow the urine out put and BMP. 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 Improved now (4) Thrombocytopenia ICD Codes: D69.6 - Thrombocytopenia, unspecified Plan: improved (5) Anemia ICD Codes: D64.9 - Anemia, unspecified Status: Acute (6) Endocarditis ICD Codes: I38 - Endocarditis, valve unspecified Status: Acute (Janak Alonso MD) Problem Qualifiers (1) Anemia: Qualified Codes: D64.9 - Anemia, unspecified (2) Endocarditis: Qualified Codes: I33.0 - Acute and subacute infective endocarditis Tasia Arvizu Jul 22, 2017 11:10 Janak Alonso MD Jul 23, 2017 17:15
[2017-07-22] MEDS ORDERED: FLUCONAZOLE 100 MG TAB PO ONE (16:00)
[2017-07-22] MEDS ORDERED: PILL SPLITTER OTHER PRN (16:15)
[2017-07-22] MEDS ORDERED: FUROSEMIDE 80 MG TAB PO SCH (18:00)
[2017-07-22] MEDS: RESP: ALBUTEROL 1.25 MG/3 ML NEB (PRN) NEB (20:17)
[2017-07-23] VITALS (8 sets, daily range): BP systolic 99–113; BP diastolic 55–67; PULSE 101–164; RESP 18–22; TEMP 97.7–99.9; O2SAT 95–100
[2017-07-23] MEDS: ONDANSETRON HCL 4 MG/2 ML VIAL IV PUSH PRN ×2 (00:16→21:23)
[2017-07-23] MEDS: BENZONATATE 100 MG CAP PO PRN ×3 (03:28→20:04)
[2017-07-23] MEDS: OXACILLIN INJ 2 GM in SODIUM CHLORIDE 0.9% INJ 100 ML IV SCH ×5 (03:50→21:15)
[2017-07-23] MEDS: MUPIROCIN 2% OINT 22 GM TUBE TOPICAL SCH ×3 (06:00→21:19)
[2017-07-23 07:40] LABS: BICARBONATE 23.7 MEQ/L (21.0-32.0); CALCIUM 7.4 MG/DL (8.5-10.1); CREATININE 1.4 MG/DL (0.50-1.00)
[2017-07-23] MEDS: clonazePAM 1 MG TAB PO SCH ×2 (07:44→21:16)
[2017-07-23] MEDS: CALCIUM CARBONATE 1.25 GM (CA 500 MG) TAB PO SCH (07:45)
[2017-07-23] MEDS: FUROSEMIDE 40 MG TAB PO SCH (07:45)
[2017-07-23] MEDS: SODIUM CHLORIDE 0.9% FLUSH 10 ML FLUSH IV FLUSH SCH ×2 (07:45→21:26)
[2017-07-23] MEDS: NYSTATIN 100,000 U/GM PWD 15 GM BTL TOPICAL SCH (07:46)
[2017-07-23 08:02] LABS: CALCIUM-PROTEIN CORRECTED 7.5 MG/DL (8.5-10.1)
[2017-07-23] MEDS ORDERED: METOLAZONE 5 MG TAB PO SCH (09:00)
[2017-07-23 09:40] LABS: HEMATOCRIT 26.6 % (35.0-46.0); HEMOGLOBIN 8.9 GM/DL (11.6-15.3); MEAN CELL VOLUME 86.2 FL (80.0-100.0); MEAN CORPUSCULAR HEMOGLOBIN 28.9 PG (27.0-34.0); MEAN CORPUSCULAR HGB CONC 33.5 % (32.0-36.0); PLATELET COUNT 260 TH/MM3 (150-450); RED BLOOD COUNT 3.09 MIL/MM3 (4.00-5.30); RED CELL DISTRIBUTION WIDTH 17.3 % (11.6-17.2); WHITE BLOOD COUNT 6.8 TH/MM3 (4.0-11.0)
--- NOTE | 2017-07-23 11:42 | HHI.FPPN ---
Subjective Remarks Vitals are stable. No new symptoms or complaints. Wt has increased by 23 kilograms since admission. Fluid positive. (Rosamaria Sanford MD R1) Objective Vitals Vital Signs Date Time Temp Pulse Resp B/P (MAP) Pulse Ox O2 Delivery O2 Flow Rate FiO2 07/23/17 10:04 97 Nasal Cannula 2.00 07/23/17 08:00 98.8 106 19 103/56 (72) 95 07/23/17 08:00 95 Nasal Cannula 3.00 07/23/17 04:00 98.0 164 18 100/57 (71) 97 07/23/17 00:00 97.7 107 20 113/64 (80) 100 07/22/17 20:00 98 20 104/66 (79) 97 07/22/17 19:30 Nasal Cannula 2.00 07/22/17 17:31 94 Nasal Cannula 2.00 07/22/17 16:00 97.7 100 17 101/64 (76) 94 07/22/17 12:00 97.6 105 17 112/62 (79) 91 I/O 07/22/17 07/22/17 07/22/17 07/23/17 07/23/17 07/23/17 07:00 15:00 23:00 07:00 15:00 23:00 Intake Total 200 ml 100 ml 1318 ml 1520 ml 120 ml Output Total 500 ml Balance -300 ml 100 ml 1318 ml 1520 ml 120 ml Intake Oral 1118 ml 1320 ml 120 ml IV Total 200 ml 100 ml 200 ml 200 ml Output Urine Total 500 ml # Voids 4 12 # Bowel Movements 2 2 (Rosamaria Sanford MD R1) Result Diagram: 07/23/17 0805 07/23/17 0632 Objective Remarks GENERAL: This is an acutely ill appearing female pt. Generally edematous, more alert today. SKIN: On the medial aspect of the left lower leg there is a 1x1 cm scabbed, healing lesion. No bleeding present. Multiple splinter hemorrhages on bilateral fingers and toes and surrounding ecchymosis. Few small red papules on dorsal hands and on left lower leg appear improved since yesterday. EYES: Extraocular motions intact. ENT: Moist mucous membranes. CARDIOVASCULAR: Tachycardic rate with normal rhythm. Grade 3/6 systolic murmur. RESPIRATORY: Stable crackles bilaterally. No accessory muscle use. 2L NC in place. GASTROINTESTINAL: Abdomen non-tender. MUSCULOSKELETAL: Edematous (pitting) extremities. NEUROLOGICAL: Able to maintain conversation. Normal speech. 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 Poor echocardiogram, severe tricuspid insufficiency, pulmonary hypertension and patent foramen ovale were noted. Widespread infection to the lungs, brain, hip, multiple skin sites, and possibly other areas of the body. Patient appeared to be heading towards renal failure. She is fluid positive with significant edema being treated w/IV lasix. Right hip joint was aspirated by IR. ID was consulted. Serial blood cultures being monitored. Nephrology, orthopedics, and cardiology were also consulted. Due to the progressive nature of the disease spread, palliative was consulted. Current consensus is to continue IV antibiotics unless a major setback in her condition arises; will then transition to comfort measures. Will continue aggressive treatment. Discharge Planning Discharge care plan will require IV antibiotics x 8 weeks for aggressive therapy per ID recs. PICC line placement will be ordered on admission day after neg blood cx and ID and Nephro clearance. Plan for home health while receiving IV antibiotics and care/monitoring for her multiple complications. We are currently trying to achieve more aggressive diuresis before she will be able to go home. (Rosamaria Sanford MD R1) Attending Attestation Patient seen and examined. Case reviewed and discussed with the resident team. Agree with plan of care as discussed with me and documented in the resident note. Volume status is worsening, more aggressive management warranted, if there is not some improvement in the next few days will potentially need to consider dialysis. (Tessie Siegel MD) Problem List: (1) Severe sepsis with acute organ dysfunction due to Staphylococcus species ICD Codes: A41.2 - Sepsis due to unspecified staphylococcus; R65.20 - Severe sepsis without septic shock Status: Acute Plan: Patient with history of endocarditis and septic pulmonary emboli 11/2016 and 12/2016. Current symptoms started after relapse with IV heroin. HIV, hepatitis panel negative Tricuspid endocarditis with septic pulmonary emboli, left thigh muscle abscess, right hip joint effusion, brain abscess, L5-S1 discitis, pyelonephritis/renal infarction This is a terminal condition with life expectancy no more than 6 months. S/p right hip aspiration draining 4ml of yellow purulent appearing fluid on by Dr. Gilliland Phlegmon embedded in muscle associated w/r. hip joint Labial phlegmon Leukocytosis resolved CRP remains elevated at 13 ESR remains elevated >140 07/12 Sputum culture growing harrington sensitive staph aureus 07/10 urine culture growing 50-100,000 CFU/mL mixed gram positive brittni 07/10 CTA: widespread patchy cavitary pneumonia of both lung on the basis of septic emboli 07/11 Wound culture growing harrington sensitive staph aureus and beta strep Group F 07/11 Echo shows vegetation on the tricuspid valve, pulmonary valve regurg 07/10 Blood cultures staph aureus x 4 07/12 Blood cultures staph aureus and viridans strep x 2 07/14 Blood cultures staph aureus 07/15 Blood cultures no growth 07/15 KALIN tricuspid vegetation, severe tricuspid regurg, small PFO with right to left shunt (potential source for systemic emboli) 07/16 Synovial fluid culture staph aureus 07/19 VQ scan: septic emboli 07/19 Blood cultures no growth for for 3 days Plan: - CM consulted - appreciate assistance in discharge planning - Palliative care consulted- appreciate assistance and recommendations - ID consulted, appreciate assistance * Continue Oxacillin 2g IV Q4H (started 07/12) * Will require PICC line for continued outpatient treatment For pain: - Oxycodone 5 mg Q4H PRN pain 3-5 - Oxycodone 10 mg Q4H PRN for pain 6-10 - Morphine 2 mg Q4H IV for pain PRN breakthrough Imagin/19 Hip MRI small moderate right hip joint effusion and small muscular abscess in the proximal left thigh adjacent to the left femoral head * CTA: No PE. Widespread patchy cavitary pneumonia both lungs and probable on the basis of septic emboli. Nonspecific hepatosplenomegaly. Probable tricuspid regurgitation. * 07/10 CXR: Patchy cavitary pneumonia, fairly stable on the right but substantially worse on the left * Lower extremity ultrasound: Negative for venous thrombosis * KALIN 07/15 confirms right-sided endocarditis with severe tricuspid regurgitation (w/mobile vegetation on tricuspid valve), moderate to severe pulmonary hypertension, and no other valvular vegetation.A patent foramen ovale is present with a [id number]-st-[id number] shunt demonstrated by color flow Doppler interrogation. * 07/16 Brain MRI: 2 areas of central ring enhancement * 07/16 Spine MRI: discitis involving L5-S1, possible right renal infarction versus focal pyelonephritis (2) Endocarditis of tricuspid valve ICD Codes: I36.8 - Other nonrheumatic tricuspid valve disorders Status: Acute Plan: See above (3) Anasarca ICD Codes: R60.1 - Generalized edema Plan: Continue to monitor I/O's, daily weights, RFTs Patient has continued to remain edematous, have positive fluid balance, and weight gain Discontinue Lasix PO 40 mg BID and proceed with more aggressive diuresis Nephrology consulted, appreciate recs BUN/Cr has improved significantly Spoke w/nephrology today, will start: albumin IV 25 mg BID 2-3 days Lasix 80 mg IV (4) Acute renal failure ICD Codes: N17.9 - Acute kidney failure, unspecified Status: Acute Plan: consulted Nephrology, appreciate recommendations BUN/Cr improving, GFR stable at 40-45 (5) Rash and nonspecific skin eruption ICD Codes: R21 - Rash and other nonspecific skin eruption Plan: hydrocortisone 0.5% cream to apply to rash on hands and lower leg (6) Anemia ICD Codes: D64.9 - Anemia, unspecified Status: Acute Plan: Baseline hemoglobin around 13.1 per chart review S/p 2 units transfusion on 07/16, 1 unit on 07/18, 07/19 Secondary to bleeding from multiple sites/severe infection Known sources: hemoptysis and vaginal bleeding Stable Transfuse as needed (Hgb less than or equal to 7) , monitor daily CBCs and coag profile (7) Altered mental status ICD Codes: R41.82 - Altered mental status, unspecified (8) Cavitary pneumonia ICD Codes: J18.9 - Pneumonia, unspecified organism; J98.4 - Other disorders of lung Status: Acute Plan: W/hemoptysis Albuterol neb Q6H (9) Muscle abscess ICD Codes: M62.89 - Other specified disorders of muscle Status: Acute (10) Labial swelling ICD Codes: N94.89 - Other specified conditions associated with female genital organs and menstrual cycle Plan: Unilateral, affecting the right labia Soft tissue US shows phlegmon (11) Yumiko infection of genital region ICD Codes: B37.49 - Other urogenital candidiasis Plan: Skin rash Nystatin powder to 12 hours to right inguinal region (12) Vaginal candidiasis ICD Codes: B37.3 - Candidiasis of vulva and vagina Plan: Cultures of endocervix positive for Yumiko Consider 3 treatments of oral fluconazole 150 mg q72 hours (13) IVDU (intravenous drug user) ICD Codes: F19.90 - Other psychoactive substance use, unspecified, uncomplicated Status: Chronic Plan: clonidine 0.1 mg every 6 hours when necessary for agitation (14) Nutrition, metabolism, and development symptoms ICD Codes: R63.8 - Other symptoms and signs concerning food and fluid intake Status: Acute Plan: Diet: Regular Electrolytes: continue to monitor and replete PRN Fluids: PO DVT PPX: SCDs, chemical anticoagulation contraindicated in the setting of endocarditis. (Rosamaria Sanford MD R1) Problem Qualifiers (1) Acute renal failure: Qualified Codes: N17.9 - Acute kidney failure, unspecified (2) Anemia: Qualified Codes: D64.9 - Anemia, unspecified (3) Altered mental status: Qualified Codes: R40.4 - Transient alteration of awareness Rosamaria Sanford MD R1 Jul 23, 2017 11:42 Tessie Siegel MD Jul 23, 2017 15:49
[2017-07-23] MEDS ORDERED: ALBUMIN 5% INJ 500 ML IV SCH (13:00)
[2017-07-23] MEDS: guaiFENesin SOLUTION 200 MG/10 ML CUP PO PRN (16:57)
[2017-07-23] MEDS: ALBUMIN 5% INJ 500 ML IV SCH (17:02)
[2017-07-23] MEDS: FUROSEMIDE 100 MG/10 ML VIAL IV PUSH SCH (18:00)
[2017-07-23] MEDS: MENTHOL LOZENGE BUCCAL PRN (20:15)
[2017-07-23] MEDS: RESP: ALBUTEROL 1.25 MG/3 ML NEB (PRN) NEB (20:29)
[2017-07-24] VITALS (7 sets, daily range): BP systolic 102–115; BP diastolic 55–69; PULSE 99–117; RESP 17–20; TEMP 97.9–100.3; O2SAT 94–98
[2017-07-24] MEDS: guaiFENesin SOLUTION 200 MG/10 ML CUP PO PRN ×4 (00:05→23:47)
[2017-07-24] MEDS: OXACILLIN INJ 2 GM in SODIUM CHLORIDE 0.9% INJ 100 ML IV SCH ×3 (00:06→10:07)
[2017-07-24] MEDS: MENTHOL LOZENGE BUCCAL PRN (00:54)
[2017-07-24] MEDS ORDERED: ALBUMIN 5% INJ 500 ML IV SCH (01:00)
[2017-07-24] MEDS: BENZONATATE 100 MG CAP PO PRN ×3 (03:56→23:47)
[2017-07-24] MEDS: MUPIROCIN 2% OINT 22 GM TUBE TOPICAL SCH ×3 (06:00→21:11)
[2017-07-24] MEDS: CALCIUM CARBONATE 1.25 GM (CA 500 MG) TAB PO SCH (08:37)
[2017-07-24] MEDS: clonazePAM 1 MG TAB PO SCH ×2 (08:37→21:09)
[2017-07-24] MEDS: FUROSEMIDE 100 MG/10 ML VIAL IV PUSH SCH ×2 (08:37→16:59)
[2017-07-24] MEDS: ALBUMIN 5% INJ 500 ML IV SCH ×2 (08:38→16:57)
[2017-07-24] MEDS: SODIUM CHLORIDE 0.9% FLUSH 10 ML FLUSH IV FLUSH SCH ×2 (08:39→21:09)
--- NOTE | 2017-07-24 09:10 | HHI.FPPN ---
Subjective Remarks Patient is feeling ok today. States bandage came off on her left thumb, states the tip of her finger doesn't look very good, is a little numb. Tip of her left toe feels a little numb as well. These sites appear to be sites of necrosis w/ surrounding erythema. No discharge or bleeding. Rash on her hands has progressed and become itchier. Patient has not been using hydrocortisone cream for rash or bactroban ointment on the tip of her finger because she was unsure what they were for. This was explained to patient this AM, and she agreed to use. Thinks her legs may be much more swollen than yesterday. Her legs are itchier today. (Rosamaria Sanford MD R1) Objective Vitals Vital Signs Date Time Temp Pulse Resp B/P (MAP) Pulse Ox O2 Delivery O2 Flow Rate FiO2 07/24/17 04:00 100.3 117 20 109/69 (82) 98 07/24/17 00:00 98.5 112 20 104/59 (74) 97 07/23/17 20:30 Nasal Cannula 2.00 07/23/17 20:00 99.9 113 22 113/67 (82) 98 07/23/17 19:43 99 Nasal Cannula 2.00 07/23/17 16:00 99.5 104 19 104/59 (74) 99 07/23/17 12:00 98.5 101 19 99/55 (70) 95 07/23/17 10:04 97 Nasal Cannula 2.00 I/O 07/23/17 07/23/17 07/23/17 07/24/17 07/24/17 07/24/17 07:00 15:00 23:00 07:00 15:00 23:00 Intake Total 1520 ml 1070 ml 680 ml 1020 ml Output Total 700 ml 600 ml Balance 1520 ml 370 ml 80 ml 1020 ml Intake Oral 1320 ml 870 ml 480 ml 820 ml IV Total 200 ml 200 ml 200 ml 200 ml Output Urine Total 700 ml 600 ml # Voids 12 5 # Bowel Movements 2 1 0 (Rosamaria Sanford MD R1) Result Diagram: 07/23/17 0805 07/23/17 0632 Objective Remarks GENERAL: This is an acutely ill appearing female pt. Generally edematous, more alert today. SKIN: On the medial aspect of the left lower leg there is a 1x1 cm scabbed, healing lesion w/ a blackened scab. No bleeding present. Multiple splinter hemorrhages/janeway lesions on bilateral fingers and toes and surrounding ecchymosis. Patches of a rash of small red papules on dorsal hands and on left lower leg. Left thumb tip has a 1.5x1mm area of redness, skin sloughing, and appearance of subcutaneous tissue. No drainage or bleeding. Patient states it is slightly numb. At tip of left toe, appearance of a stable, blackened lesion visible,surrounding erythema. EYES: Extraocular motions intact. ENT: Moist mucous membranes. CARDIOVASCULAR: Tachycardic rate with normal rhythm. Grade 3/6 systolic murmur. RESPIRATORY: Decreased inspiratory air flow bilaterally, no crackles heard. No accessory muscle use. 2L NC in place. GASTROINTESTINAL: Abdomen non-tender. MUSCULOSKELETAL: Edematous (pitting) extremities, increased at the feet bilaterally. NEUROLOGICAL: Able to maintain conversation. Normal speech. 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 Poor echocardiogram, severe tricuspid insufficiency, pulmonary hypertension and patent foramen ovale were noted. Widespread infection to the lungs, brain, hip, multiple skin sites, and possibly other areas of the body. Patient appeared to be heading towards renal failure. She is fluid positive with significant edema being treated w/IV lasix. Right hip joint was aspirated by IR. ID was consulted. Serial blood cultures were monitored, last blood cultures were negative for 3 days. Nephrology, orthopedics, and cardiology were also consulted. Due to the progressive nature of the disease spread, palliative was consulted. Current consensus is to continue IV antibiotics unless a major setback in her condition arises; will then transition to comfort measures. Will continue aggressive treatment. Discharge Planning Discharge care plan will require IV antibiotics x 8 weeks for aggressive therapy per ID recs. PICC line placement will be ordered on admission day after neg blood cx and ID and Nephro clearance. Plan for home health while receiving IV antibiotics and care/monitoring for her multiple complications. We are currently trying to achieve more aggressive diuresis before she will be able to go home. (Rosamaria Sanford MD R1) Attending Attestation Patient seen and examined. Case reviewed and discussed with the resident team. Agree with plan of care as discussed with me and documented in the resident note. She appears clinically somewhat improved. She is up and walking with PT and trying to regain some strength. She is eating better. Will continue to work on her fluid balance. If we can correct her anasarca, her blood cultures have remained negative and can consider sending home with HH for IV antibiotics in the near future. (Tessie Siegel MD) Problem List: (1) Severe sepsis with acute organ dysfunction due to Staphylococcus species ICD Codes: A41.2 - Sepsis due to unspecified staphylococcus; R65.20 - Severe sepsis without septic shock Status: Acute Plan: Patient with history of endocarditis and septic pulmonary emboli 11/2016 and 12/2016. Symptoms started after relapse with IV heroin. HIV, hepatitis panel negative Tricuspid endocarditis with septic pulmonary emboli, left thigh muscle abscess, right hip joint effusion, brain abscess, L5-S1 discitis, pyelonephritis/renal infarction This is a terminal condition with life expectancy no more than 6 months. S/p right hip aspiration draining 4ml of yellow purulent appearing fluid on by Dr. Gilliland Phlegmon embedded in muscle associated w/r. hip joint Labial phlegmon Leukocytosis resolved CRP remains elevated at 13 ESR remains elevated >140 07/12 Sputum culture growing harrington sensitive staph aureus 07/10 urine culture growing 50-100,000 CFU/mL mixed gram positive brittni 07/10 CTA: widespread patchy cavitary pneumonia of both lung on the basis of septic emboli 07/11 Wound culture growing harrington sensitive staph aureus and beta strep Group F 07/11 Echo shows vegetation on the tricuspid valve, pulmonary valve regurg 07/10 Blood cultures staph aureus x 4 07/12 Blood cultures staph aureus and viridans strep x 2 07/14 Blood cultures staph aureus 07/15 Blood cultures no growth 07/15 KALIN tricuspid vegetation, severe tricuspid regurg, small PFO with right to left shunt (potential source for systemic emboli) 07/16 Synovial fluid culture staph aureus 07/19 VQ scan: septic emboli 07/19 Blood cultures no growth for 3 days Plan: - CM consulted - appreciate assistance in discharge planning - Palliative care consulted- appreciate assistance and recommendations - ID consulted, appreciate assistance * Continue Oxacillin 2g IV Q4H (started 07/12-07/24). Spoke w/Dr. Mosley today, advises switch to IV Ancef 2 g q8H (better for fluid overloaded patient) * Will require PICC line for continued outpatient treatment For pain: - Oxycodone 5 mg Q4H PRN pain 3-5 - Oxycodone 10 mg Q4H PRN for pain 6-10 - Morphine 2 mg Q4H IV for pain PRN breakthrough Imagin/19 Hip MRI small moderate right hip joint effusion and small muscular abscess in the proximal left thigh adjacent to the left femoral head * CTA: No PE. Widespread patchy cavitary pneumonia both lungs and probable on the basis of septic emboli. Nonspecific hepatosplenomegaly. Probable tricuspid regurgitation. * 07/10 CXR: Patchy cavitary pneumonia, fairly stable on the right but substantially worse on the left * Lower extremity ultrasound: Negative for venous thrombosis * KALIN 07/15 confirms right-sided endocarditis with severe tricuspid regurgitation (w/mobile vegetation on tricuspid valve), moderate to severe pulmonary hypertension, and no other valvular vegetation.A patent foramen ovale is present with a [id number] shunt demonstrated by color flow Doppler interrogation. * 07/16 Brain MRI: 2 areas of central ring enhancement * 07/16 Spine MRI: discitis involving L5-S1, possible right renal infarction versus focal pyelonephritis (2) Endocarditis of tricuspid valve ICD Codes: I36.8 - Other nonrheumatic tricuspid valve disorders Status: Acute Plan: See above (3) Anasarca ICD Codes: R60.1 - Generalized edema Plan: Patient is edematous, w/positive fluid balance and weight gain Nephrology consulted, appreciate recs BUN/Cr has improved significantly Worsened edema today Spoke w/nephrology on 07/24, started: albumin IV 25 mg BID 2-3 days Lasix 80 mg IV Did not receive above treatment yesterday. Spoke w/nurse to ensure patient receives today Continue to monitor I/O's, daily weights, RFTs (4) Lesion of thumb ICD Codes: L98.9 - Disorder of the skin and subcutaneous tissue, unspecified Plan: Patient has multiple Janeway lesions at the hands and feet Keep exposed to air, apply bactroban ointment TID Will continue to monitor (5) Acute renal failure ICD Codes: N17.9 - Acute kidney failure, unspecified Status: Acute Plan: consulted Nephrology, appreciate recommendations BUN/Cr has improved, GFR stable (6) Rash and nonspecific skin eruption ICD Codes: R21 - Rash and other nonspecific skin eruption Plan: Possible contact dermatitis hydrocortisone 0.5% cream to apply to rash on hands and lower leg Spoke w/patient to make sure she applies this (7) Anemia ICD Codes: D64.9 - Anemia, unspecified Status: Acute Plan: Baseline hemoglobin around 13.1 per chart review S/p 2 units transfusion on 07/16, 1 unit on 07/18, 07/19 Stable Transfuse as needed (Hgb less than or equal to 7) , monitor daily CBCs (8) Altered mental status ICD Codes: R41.82 - Altered mental status, unspecified (9) Cavitary pneumonia ICD Codes: J18.9 - Pneumonia, unspecified organism; J98.4 - Other disorders of lung Status: Acute Plan: W/hemoptysis Albuterol neb Q6H (10) Muscle abscess ICD Codes: M62.89 - Other specified disorders of muscle Status: Acute (11) Labial swelling ICD Codes: N94.89 - Other specified conditions associated with female genital organs and menstrual cycle Plan: Unilateral, affecting the left labia Soft tissue US shows phlegmon (12) Yumiko infection of genital region ICD Codes: B37.49 - Other urogenital candidiasis Plan: Skin rash Nystatin powder to 12 hours to right inguinal region (13) IVDU (intravenous drug user) ICD Codes: F19.90 - Other psychoactive substance use, unspecified, uncomplicated Status: Chronic Plan: clonidine 0.1 mg every 6 hours when necessary for agitation (14) Nutrition, metabolism, and development symptoms ICD Codes: R63.8 - Other symptoms and signs concerning food and fluid intake Status: Acute Plan: Diet: Regular Electrolytes: continue to monitor and replete PRN Fluids: PO DVT PPX: SCDs, chemical anticoagulation contraindicated in the setting of endocarditis. (Rosamaria Sanford MD R1) Problem Qualifiers (1) Acute renal failure: Qualified Codes: N17.9 - Acute kidney failure, unspecified (2) Anemia: Qualified Codes: D64.9 - Anemia, unspecified (3) Altered mental status: Qualified Codes: R40.4 - Transient alteration of awareness Rosamaria Sanford MD R1 Jul 24, 2017 09:10 Tessie Siegel MD Jul 24, 2017 16:36
[2017-07-24 12:01] LABS: AUTOMATED NEUTROPHIL # 5.2 TH/MM3 (1.8-7.7); BASOPHIL # 0.1 TH/MM3 (0-0.2); BASOPHIL % 1.1 % (0.0-2.0); EOSINOPHIL # 0.1 TH/MM3 (0-0.4); EOSINOPHIL % 1.2 % (0.0-4.0); HEMATOCRIT 25.9 % (35.0-46.0); HEMOGLOBIN 8.9 GM/DL (11.6-15.3); LYMPH % 15.4 % (9.0-44.0); LYMPHOCYTE # 1.1 TH/MM3 (1.0-4.8); MEAN CELL VOLUME 86.3 FL (80.0-100.0); MEAN CORPUSCULAR HEMOGLOBIN 29.5 PG (27.0-34.0); MEAN CORPUSCULAR HGB CONC 34.2 % (32.0-36.0); MEAN PLATELET VOLUME 6.9 FL (7.0-11.0); MONO % 10.6 % (0.0-8.0); MONOCYTE # 0.8 TH/MM3 (0-0.9); NEUT % 71.7 % (16.0-70.0); PLATELET COUNT 252 TH/MM3 (150-450); RED CELL DISTRIBUTION WIDTH 17.2 % (11.6-17.2); WHITE BLOOD COUNT 7.2 TH/MM3 (4.0-11.0)
[2017-07-24 12:35] LABS: CREATININE 1.45 MG/DL (0.50-1.00)
[2017-07-24] MEDS: CEFAZOLIN INJ 2,000 MG in SODIUM CHLORIDE 0.9% INJ 100 ML IV SCH ×2 (14:45→21:11)
--- NOTE | 2017-07-24 15:08 | HHI.NPPN ---
Subjective Renal Failure: Acute History of Present Illness 26-year-old female with history of endocarditis and IV drug use and anxiety. Presented here today from the [facility] clinic due to worsening generalized body aches, fatigue, cough, painful fingers and toes. Symptoms started about 1 week ago and have progressively worsened. Patient reports that she was previously clean rom IV drug use for 3 years but had relapse about 1 week ago. Used IV heroin. Nephrology is consulted for acute kidney injury with creatinine of 3.97 and GFR of 14 ml/min. Additional Remarks Persistent edema. Patient is resting comfortably (Tasia Arvizu) Review of Systems General Constitutional: Fatigue (Tasia Arvizu) Cardiovascular Cardiac: Edema, FAULKNER (Tasia Arvizu) Objective Data Data Vital Signs Date Time Temp Pulse Resp B/P (MAP) Pulse Ox O2 Delivery O2 Flow Rate FiO2 07/24/17 12:00 97.9 103 19 115/59 (77) 95 07/24/17 10:36 96 Nasal Cannula 3.00 07/24/17 09:02 Nasal Cannula 3.00 07/24/17 08:00 97.9 108 17 104/57 (73) 94 07/24/17 04:00 100.3 117 20 109/69 (82) 98 07/24/17 00:00 98.5 112 20 104/59 (74) 97 07/23/17 20:30 Nasal Cannula 2.00 07/23/17 20:00 99.9 113 22 113/67 (82) 98 07/23/17 19:43 99 Nasal Cannula 2.00 07/23/17 16:00 99.5 104 19 104/59 (74) 99 (Tasia Arviuz) -: 07/24/17 1145 07/24/17 1145 Physical Exam General Appearance: No Acute Distress, Comfortable (Tasia Arvizu) Eyes Eye Exam: Pupils Equal (Tasia Arvizu) Throat Throat Exam: Oral Mucosa [place] & Moist (Tasia Arvizu) Neck Neck Exam: Neck Supple (Tasia Arvizu) Pulmonary Resp Exam: Breath Sounds Equal, No Distress, Decreased Bases (Tasia Arvizu) Cardiology CV Exam: Regular, Normal Sinus Rhythm (Tasia Arvizu) Gastrointestinal/Abdomen GI Exam: Soft, Non-Tender, Bowel Sounds Present (Tasia Arvizu) Extremeties Extremities Exam: Moderate Edema (Tasia Arvizu) Neurologic Neuro Exam: Alert, Awake (Tasia Arvizu) Psychiatric Psych Exam: Appropriate Responses (Tasia Arvizu) Assessment/Plan Problem List: (1) ENRICO (acute kidney injury) ICD Codes: N17.9 - Acute kidney failure, unspecified Plan: Renal US. No acute findings. Mildly increased renal echogenicity characteristic of medical renal disease. ENRICO most likely pre renal Creatinine stable. Baseline in 01/13 was creatinine of less than 1 Serology negative Creatinine stable at 1.4 with good UOP Plan Daily weights Fluid restriction 1500ml Continue albumin and IV lasix for anasarca minimal change in swelling thus far Continue antibiotics and follow the urine out put and BMP. 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 Improved now (4) Thrombocytopenia ICD Codes: D69.6 - Thrombocytopenia, unspecified Plan: improved (5) Anemia ICD Codes: D64.9 - Anemia, unspecified Status: Acute (6) Endocarditis ICD Codes: I38 - Endocarditis, valve unspecified Status: Acute (Tasia Arvizu) Problem List: (1) ENRICO (acute kidney injury) ICD Codes: N17.9 - Acute kidney failure, unspecified Plan: Renal US. No acute findings. Mildly increased renal echogenicity characteristic of medical renal disease. ENRICO most likely pre renal Creatinine stable. Baseline in 01/13 was creatinine of less than 1 Serology negative Creatinine stable at 1.4 with good UOP Plan Daily weights Fluid restriction 1500ml Continue albumin and IV lasix for anasarca minimal change in swelling thus far Continue antibiotics and follow the urine out put and BMP. Patient seen and examined, agree with above. Urine out put increased, follow the BMP. 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 Improved now (4) Thrombocytopenia ICD Codes: D69.6 - Thrombocytopenia, unspecified Plan: improved (5) Anemia ICD Codes: D64.9 - Anemia, unspecified Status: Acute (6) Endocarditis ICD Codes: I38 - Endocarditis, valve unspecified Status: Acute (Janak Alonso MD) Problem Qualifiers (1) Anemia: Qualified Codes: D64.9 - Anemia, unspecified (2) Endocarditis: Qualified Codes: I33.0 - Acute and subacute infective endocarditis Tasia Arvizu Jul 24, 2017 15:08 Janak Alonso MD Jul 24, 2017 18:36
[2017-07-25] VITALS (9 sets, daily range): BP systolic 108–118; BP diastolic 62–73; PULSE 88–112; RESP 18–20; TEMP 97.8–101.6; O2SAT 92–96
[2017-07-25] MEDS: RESP: ALBUTEROL 1.25 MG/3 ML NEB (PRN) NEB ×3 (01:25→16:39)
[2017-07-25] MEDS: ACETAMINOPHEN 325 MG TAB PO PRN (03:30)
[2017-07-25] MEDS: CEFAZOLIN INJ 2,000 MG in SODIUM CHLORIDE 0.9% INJ 100 ML IV SCH ×3 (05:07→21:20)
[2017-07-25] MEDS: MUPIROCIN 2% OINT 22 GM TUBE TOPICAL SCH ×3 (05:08→20:04)
[2017-07-25] MEDS: ALBUMIN 5% INJ 500 ML IV SCH (06:12)
[2017-07-25 06:20] LABS: AUTOMATED NEUTROPHIL # 5.8 TH/MM3 (1.8-7.7); BASOPHIL # 0.1 TH/MM3 (0-0.2); BASOPHIL % 1.2 % (0.0-2.0); EOSINOPHIL # 0.1 TH/MM3 (0-0.4); EOSINOPHIL % 0.8 % (0.0-4.0); HEMATOCRIT 21.7 % (35.0-46.0); HEMOGLOBIN 7.6 GM/DL (11.6-15.3); LYMPH % 14.9 % (9.0-44.0); LYMPHOCYTE # 1.2 TH/MM3 (1.0-4.8); MEAN CELL VOLUME 84.3 FL (80.0-100.0); MEAN CORPUSCULAR HEMOGLOBIN 29.5 PG (27.0-34.0); MONO % 9.7 % (0.0-8.0); MONOCYTE # 0.8 TH/MM3 (0-0.9); NEUT % 73.4 % (16.0-70.0); PLATELET COUNT 259 TH/MM3 (150-450); RED BLOOD COUNT 2.57 MIL/MM3 (4.00-5.30); RED CELL DISTRIBUTION WIDTH 17.3 % (11.6-17.2); WHITE BLOOD COUNT 7.9 TH/MM3 (4.0-11.0)
[2017-07-25 06:53] LABS: CALCIUM 7.7 MG/DL (8.5-10.1); CREATININE 1.56 MG/DL (0.50-1.00)
[2017-07-25] MEDS ORDERED: POTASSIUM CHLORIDE 20 MEQ CONTROLLED RELEASE TAB PO ONE (07:30)
--- NOTE | 2017-07-25 08:55 | HHI.FPPN ---
Subjective Remarks Patient febrile up to 101.6 overnight with tachycardia up to 112. She continues to saturate 94-96% on 2 L nasal cannula. She continues to have a cough productive of bloody sputum. Intake 2980 mL, output 2000 mL, balance of 980 ML. Her weight has decreased from 96 kg to 91.4 kg in the past 24 hours on albumin and IV Lasix. She notes that she has been voiding frequently. (Yi Harvey MD, R3) Objective Vitals Vital Signs Date Time Temp Pulse Resp B/P (MAP) Pulse Ox O2 Delivery O2 Flow Rate FiO2 07/25/17 08:31 94 Nasal Cannula 2.00 07/25/17 06:12 98.0 07/25/17 06:11 18 07/25/17 04:00 101.6 112 20 108/62 (77) 95 07/25/17 00:00 97.8 103 20 111/65 (80) 96 07/24/17 21:08 Nasal Cannula 3.00 07/24/17 20:00 100.1 99 20 102/57 (72) 94 07/24/17 16:00 99.0 102 18 107/55 (72) 95 07/24/17 12:00 97.9 103 19 115/59 (77) 95 07/24/17 10:36 96 Nasal Cannula 3.00 07/24/17 09:02 Nasal Cannula 3.00 I/O 07/24/17 07/24/17 07/24/17 07/25/17 07/25/17 07/25/17 07:00 15:00 23:00 07:00 15:00 23:00 Intake Total 1020 ml 600 ml 1460 ml 920 ml Output Total 2000 ml Balance 1020 ml 600 ml -540 ml 920 ml Intake Oral 820 ml 720 ml 800 ml IV Total 200 ml 600 ml 740 ml 120 ml Output Urine Total 2000 ml # Voids 5 5 # Bowel Movements 0 1 2 (Yi Harvey MD, R3) Result Diagram: 07/25/17 0529 07/25/17 0529 Imaging Last Impressions Lung Scan-VQ Nuclear Medicine 07/19/17 0000 Signed Impressions: Service Date/Time: Wednesday, July 19, 2017 19:35 - CONCLUSION: 1. High probability for pulmonary embolus, likely septic emboli given the appearance of cavitary lesions in the lungs. Sebastien Moore MD Hip MRI 07/19/17 Signed Impressions: Service Date/Time: Wednesday, July 19, 2017 21:25 - CONCLUSION: 1. No evidence for osteomyelitis. 2. Stable small to moderate-sized right hip joint effusion which now does demonstrate some rim enhancement postcontrast. It is unclear if this is related to infection or recent aspiration. 3. Relatively stable presumed small muscular abscess in the proximal left thigh adjacent to the left femoral head. 4. Extensive subcutaneous edema. Sebastien Moore MD Chest X-Ray 07/19/17 Signed Impressions: Service Date/Time: Wednesday, July 19, 2017 18:37 - CONCLUSION: 1. Stable to slight improvement of bilateral airspace disease. Multiple cavitary lesions remain with trace pleural fluid. Sebastien Moore MD Soft Tissue Ultrasound 07/18/17 Signed Impressions: Service Date/Time: June 15:11 - CONCLUSION: Heterogeneous mass/collection Chuy King MD Brain MRI 07/16/17 1124 Signed Impressions: Service Date/Time: Sunday, July 16, 2017 11:38 - CONCLUSION: 1. Focal area of edema with at least 2 areas of central ring enhancement. Findings could represent both neoplastic and infectious processes. Considering the reported history, I favor the latter. 2. Lesion appears to be isolated. No midline shift. Ihsan Garvin MD Lumbar Spine MRI 07/16/17 Signed Impressions: Service Date/Time: Sunday, July 16, 2017 11:38 - CONCLUSION: Cannot exclude discitis involving L5-S1. Possible right renal infarction versus focal pyelonephritis. Free fluid in the pelvis. Chuy King MD Hip Aspiration/Injection 07/16/17 Signed Impressions: Service Date/Time: Sunday, July 16, 2017 14:08 - CONCLUSION: Uncomplicated aspiration as above. Arpan Gilliland MD Abscess Drainage X-Ray 07/16/17 Signed Impressions: Service Date/Time: Sunday, July 16, 2017 14:46 - CONCLUSION: A region of decreased, irregular echogenicity was identified corresponding to the area the patient's known abscess. This did not appear to represent a well-circumscribed fluid collection or ultrasound. No fluid could be aspirated from this. Arpan Gilliland MD Lower Extremity Ultrasound 07/14/17 0000 Signed Impressions: Service Date/Time: Friday, July 14, 2017 11:50 - CONCLUSION: Normal examination. Dang Bahena MD Hip and Pelvis X-Ray 07/14/17 0000 Signed Impressions: Service Date/Time: Friday, July 14, 2017 14:51 - CONCLUSION: Unremarkable examination of the right hip. Dang Bahena MD Renal Ultrasound 07/11/17 0000 Signed Impressions: Service Date/Time: June 09:00 - CONCLUSION: 1. No acute findings. Mildly increased renal echogenicity characteristic of medical renal disease. Sebastien Moore MD CT Angiography 07/10/17 0000 Signed Impressions: Service Date/Time: Monday, July 10, 2017 19:34 - CONCLUSION: 1. No pulmonary embolus. 2. Widespread patchy cavitary pneumonia of both lungs and probably on the basis of septic emboli. 3. Nonspecific hepatosplenomegaly. 4. Probable tricuspid regurgitation. Chuy Yang MD Objective Remarks GENERAL: This is an acutely ill appearing female pt. Generally edematous. SKIN: On the medial aspect of the left lower leg there is a 1x1 cm scabbed, healing lesion w/ a blackened scab. No bleeding present. Multiple splinter hemorrhages/janeway lesions on bilateral fingers and toes and surrounding ecchymosis. Patches of a rash of small red papules on dorsal hands and on left lower leg. Left thumb tip has a 1.5x1mm area of redness and skin sloughing. No drainage or bleeding. At tip of left toe, appearance of a stable, blackened lesion with surrounding erythema. EYES: Extraocular motions intact. ENT: Moist mucous membranes. CARDIOVASCULAR: Tachycardic rate with normal rhythm. Grade 3/6 systolic murmur. RESPIRATORY: Decreased inspiratory air flow bilaterally, no crackles heard. No accessory muscle use. 2L NC in place. Frequent cough productive of bloody sputum. GASTROINTESTINAL: Abdomen non-tender. MUSCULOSKELETAL: Edematous (pitting) extremities, increased at the feet bilaterally. NEUROLOGICAL: Able to maintain conversation. Normal speech. 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 Poor echocardiogram, severe tricuspid insufficiency, pulmonary hypertension and patent foramen ovale were noted. Widespread infection to the lungs, brain, hip, multiple skin sites, and possibly other areas of the body. She is fluid overloaded with significant edema being treated w/IV lasix. Right hip joint was aspirated by IR. ID was consulted. Serial blood cultures were monitored, last blood cultures were negative for 3 days. Nephrology, orthopedics, and cardiology were also consulted. Due to the progressive nature of the disease spread, palliative was consulted. Current consensus is to continue IV antibiotics unless a major setback in her condition arises; will then transition to comfort measures. Will continue aggressive treatment. Discharge Planning Discharge care plan will require IV antibiotics x 8 weeks for aggressive therapy per ID recs. PICC line placement will be ordered on admission day after neg blood cx and ID and Nephro clearance. Plan for home health while receiving IV antibiotics and care/monitoring for her multiple complications. We are currently trying to achieve more aggressive diuresis before she will be able to go home. (Yi Harvey MD, R3) Attending Attestation Patient seen and examined. Case reviewed and discussed with the resident team. Agree with plan of care as discussed with me and documented in the resident note. Patient clinically more comfortable today. She is working with PT and walking the halls. Appetite better. Diuresis of a few kilos in the past 24 hours. Continued diuresis and antibiotics. (Tessie Siegel MD) Problem List: (1) Endocarditis of tricuspid valve ICD Codes: I36.8 - Other nonrheumatic tricuspid valve disorders Status: Acute Plan: Patient with history of endocarditis and septic pulmonary emboli 11/2016 and 12/2016. Symptoms started after relapse with IV heroin. HIV, hepatitis panel negative Tricuspid endocarditis with septic pulmonary emboli, left thigh muscle abscess, right hip joint effusion, brain abscess, L5-S1 discitis, pyelonephritis/renal infarction This is a terminal condition with life expectancy no more than 6 months. S/p right hip aspiration draining 4ml of yellow purulent appearing fluid on by Dr. Gilliland Phlegmon embedded in muscle associated w/r. hip joint Labial phlegmon 07/12 Sputum culture growing harrington sensitive staph aureus 07/10 urine culture growing 50-100,000 CFU/mL mixed gram positive brittni 07/10 CTA: widespread patchy cavitary pneumonia of both lung on the basis of septic emboli 07/11 Wound culture growing harrington sensitive staph aureus and beta strep Group F 07/11 Echo shows vegetation on the tricuspid valve, pulmonary valve regurg 07/10 Blood cultures staph aureus x 4 07/12 Blood cultures staph aureus and viridans strep x 2 07/14 Blood cultures staph aureus 07/15 Blood cultures no growth 07/15 KALIN tricuspid vegetation, severe tricuspid regurg, small PFO with right to left shunt (potential source for systemic emboli) 07/16 Synovial fluid culture staph aureus 07/19 VQ scan: septic emboli 07/19 Blood cultures no growth Plan: - CM consulted - appreciate assistance in discharge planning - Palliative care consulted- appreciate assistance and recommendations - ID consulted, appreciate assistance * s/p Oxacillin 2g IV Q4H (started 07/12-07/24). * Continue IV Ancef 2 g q8H (better for fluid overloaded patient) (started 07/24) * Will require PICC line for continued outpatient treatment For pain: - Oxycodone 5 mg Q4H PRN pain 3-5 - Oxycodone 10 mg Q4H PRN for pain 6-10 - Morphine 2 mg Q4H IV for pain PRN breakthrough Imagin/19 Hip MRI small moderate right hip joint effusion and small muscular abscess in the proximal left thigh adjacent to the left femoral head * CTA: No PE. Widespread patchy cavitary pneumonia both lungs and probable on the basis of septic emboli. Nonspecific hepatosplenomegaly. Probable tricuspid regurgitation. * 07/10 CXR: Patchy cavitary pneumonia, fairly stable on the right but substantially worse on the left * Lower extremity ultrasound: Negative for venous thrombosis * KALIN 07/15 confirms right-sided endocarditis with severe tricuspid regurgitation (w/mobile vegetation on tricuspid valve), moderate to severe pulmonary hypertension, and no other valvular vegetation.A patent foramen ovale is present with a [id number] shunt demonstrated by color flow Doppler interrogation. * 07/16 Brain MRI: 2 areas of central ring enhancement * 07/16 Spine MRI: discitis involving L5-S1, possible right renal infarction versus focal pyelonephritis (2) Anasarca ICD Codes: R60.1 - Generalized edema Status: Acute Plan: Improving with IV lasix and albumin Nephrology consulted, appreciate recs Spoke w/nephrology on 07/24, started: albumin IV 25 mg BID 2-3 days Lasix 80 mg IV Continue to monitor I/O's, daily weights, renal function (3) Lesion of thumb ICD Codes: L98.9 - Disorder of the skin and subcutaneous tissue, unspecified Status: Acute Plan: Patient has multiple Janeway lesions at the hands and feet Keep exposed to air, apply Bactroban ointment TID Will continue to monitor (4) Acute renal failure ICD Codes: N17.9 - Acute kidney failure, unspecified Status: Acute Plan: consulted Nephrology, appreciate recommendations BUN/Cr has improved, GFR stable (5) Rash and nonspecific skin eruption ICD Codes: R21 - Rash and other nonspecific skin eruption Status: Acute Plan: Possible contact dermatitis versus reaction to edema Can try hydrocortisone 0.5% cream to apply to rash on hands and lower legs (6) Anemia ICD Codes: D64.9 - Anemia, unspecified Status: Acute Plan: Baseline hemoglobin around 13.1 per chart review S/p 2 units transfusion on 07/16, 1 unit on 07/18, 07/19 Stable Transfuse as needed (Hgb less than or equal to 7) (7) Cavitary pneumonia ICD Codes: J18.9 - Pneumonia, unspecified organism; J98.4 - Other disorders of lung Status: Acute (8) Muscle abscess ICD Codes: M62.89 - Other specified disorders of muscle Status: Acute (9) Labial swelling ICD Codes: N94.89 - Other specified conditions associated with female genital organs and menstrual cycle Status: Acute Plan: Unilateral, affecting the left labia Soft tissue US shows phlegmon (10) IVDU (intravenous drug user) ICD Codes: F19.90 - Other psychoactive substance use, unspecified, uncomplicated Status: Chronic Plan: clonidine 0.1 mg every 6 hours when necessary for agitation (11) Nutrition, metabolism, and development symptoms ICD Codes: R63.8 - Other symptoms and signs concerning food and fluid intake Status: Acute Plan: Diet: Regular Electrolytes: continue to monitor and replete PRN Fluids: PO DVT PPX: SCDs, chemical anticoagulation contraindicated in the setting of endocarditis. Continue to encourage ambulation around floor. (Yi Harvey MD, R3) Problem List: (1) Endocarditis of tricuspid valve ICD Codes: I36.8 - Other nonrheumatic tricuspid valve disorders Status: Acute Plan: Patient with history of endocarditis and septic pulmonary emboli 11/2016 and 12/2016. Symptoms started after relapse with IV heroin. HIV, hepatitis panel negative Tricuspid endocarditis with septic pulmonary emboli, left thigh muscle abscess, right hip joint effusion, brain abscess, L5-S1 discitis, pyelonephritis/renal infarction This is a terminal condition with life expectancy no more than 6 months. S/p right hip aspiration draining 4ml of yellow purulent appearing fluid on by Dr. Gilliland Phlegmon embedded in muscle associated w/r. hip joint Labial phlegmon 07/12 Sputum culture growing harrington sensitive staph aureus 07/10 urine culture growing 50-100,000 CFU/mL mixed gram positive brittni 07/10 CTA: widespread patchy cavitary pneumonia of both lung on the basis of septic emboli 07/11 Wound culture growing harrington sensitive staph aureus and beta strep Group F 07/11 Echo shows vegetation on the tricuspid valve, pulmonary valve regurg 07/10 Blood cultures staph aureus x 4 07/12 Blood cultures staph aureus and viridans strep x 2 07/14 Blood cultures staph aureus 07/15 Blood cultures no growth 07/15 KALIN tricuspid vegetation, severe tricuspid regurg, small PFO with right to left shunt (potential source for systemic emboli) 07/16 Synovial fluid culture staph aureus 07/19 VQ scan: septic emboli 07/19 Blood cultures no growth Plan: - CM consulted - appreciate assistance in discharge planning - Palliative care consulted- appreciate assistance and recommendations - ID consulted, appreciate assistance * s/p Oxacillin 2g IV Q4H (started 07/12-07/24). * Continue IV Ancef 2 g q8H (better for fluid overloaded patient) (started 07/24) * Will require PICC line for continued outpatient treatment For pain: - Oxycodone 5 mg Q4H PRN pain 3-5 - Oxycodone 10 mg Q4H PRN for pain 6-10 - Morphine 2 mg Q4H IV for pain PRN breakthrough Imagin/19 Hip MRI small moderate right hip joint effusion and small muscular abscess in the proximal left thigh adjacent to the left femoral head * CTA: No PE. Widespread patchy cavitary pneumonia both lungs and probable on the basis of septic emboli. Nonspecific hepatosplenomegaly. Probable tricuspid regurgitation. * 07/10 CXR: Patchy cavitary pneumonia, fairly stable on the right but substantially worse on the left * Lower extremity ultrasound: Negative for venous thrombosis * KALIN 07/15 confirms right-sided endocarditis with severe tricuspid regurgitation (w/mobile vegetation on tricuspid valve), moderate to severe pulmonary hypertension, and no other valvular vegetation.A patent foramen ovale is present with a [id number]-[id number] shunt demonstrated by color flow Doppler interrogation. * 07/16 Brain MRI: 2 areas of central ring enhancement * 07/16 Spine MRI: discitis involving L5-S1, possible right renal infarction versus focal pyelonephritis (2) Anasarca ICD Codes: R60.1 - Generalized edema Status: Acute Plan: Improving with IV lasix and albumin Nephrology consulted, angely sanchez Spoke w/nephrology on 07/24, started: albumin IV 25 mg BID 2-3 days Lasix 80 mg IV Continue to monitor I/O's, daily weights, renal function (3) Lesion of thumb ICD Codes: L98.9 - Disorder of the skin and subcutaneous tissue, unspecified Status: Acute Plan: Patient has multiple Janeway lesions at the hands and feet Keep exposed to air, apply Bactroban ointment TID Will continue to monitor (4) Acute renal failure ICD Codes: N17.9 - Acute kidney failure, unspecified Status: Acute Plan: consulted Nephrology, appreciate recommendations BUN/Cr has improved, GFR stable (5) Rash and nonspecific skin eruption ICD Codes: R21 - Rash and other nonspecific skin eruption Status: Acute Plan: Possible contact dermatitis versus reaction to edema Can try hydrocortisone 0.5% cream to apply to rash on hands and lower legs (6) Anemia ICD Codes: D64.9 - Anemia, unspecified Status: Acute Plan: Baseline hemoglobin around 13.1 per chart review S/p 2 units transfusion on 07/16, 1 unit on 07/18, 07/19 Stable Transfuse as needed (Hgb less than or equal to 7) (7) Cavitary pneumonia ICD Codes: J18.9 - Pneumonia, unspecified organism; J98.4 - Other disorders of lung Status: Acute (8) Muscle abscess ICD Codes: M62.89 - Other specified disorders of muscle Status: Acute (9) Labial swelling ICD Codes: N94.89 - Other specified conditions associated with female genital organs and menstrual cycle Status: Acute Plan: Unilateral, affecting the left labia Soft tissue US shows phlegmon (10) IVDU (intravenous drug user) ICD Codes: F19.90 - Other psychoactive substance use, unspecified, uncomplicated Status: Chronic Plan: clonidine 0.1 mg every 6 hours when necessary for agitation (11) Nutrition, metabolism, and development symptoms ICD Codes: R63.8 - Other symptoms and signs concerning food and fluid intake Status: Acute Plan: Diet: Regular Electrolytes: continue to monitor and replete PRN Fluids: PO DVT PPX: SCDs, chemical anticoagulation contraindicated in the setting of endocarditis. Continue to encourage ambulation around floor. (Tessie Siegel MD) Problem Qualifiers (1) Acute renal failure: Qualified Codes: N17.9 - Acute kidney failure, unspecified (2) Anemia: Qualified Codes: D64.9 - Anemia, unspecified Yi Harvey MD, R3 Jul 25, 2017 08:55 Tessie Siegel MD Jul 25, 2017 13:18
[2017-07-25] MEDS: BENZONATATE 100 MG CAP PO PRN ×2 (09:17→16:27)
[2017-07-25] MEDS: guaiFENesin SOLUTION 200 MG/10 ML CUP PO PRN ×2 (09:18→16:27)
[2017-07-25] MEDS: FUROSEMIDE 100 MG/10 ML VIAL IV PUSH SCH ×2 (09:25→17:22)
[2017-07-25] MEDS: SODIUM CHLORIDE 0.9% FLUSH 10 ML FLUSH IV FLUSH SCH ×2 (09:26→20:03)
[2017-07-25] MEDS: CALCIUM CARBONATE 1.25 GM (CA 500 MG) TAB PO SCH (09:26)
[2017-07-25] MEDS: clonazePAM 1 MG TAB PO SCH ×2 (09:26→20:01)
--- NOTE | 2017-07-25 11:12 | HHI.NPPN ---
Subjective Renal Failure: Acute History of Present Illness 26-year-old female with history of endocarditis and IV drug use and anxiety. Presented here today from the [facility] clinic due to worsening generalized body aches, fatigue, cough, painful fingers and toes. Symptoms started about 1 week ago and have progressively worsened. Patient reports that she was previously clean rom IV drug use for 3 years but had relapse about 1 week ago. Used IV heroin. Nephrology is consulted for acute kidney injury with creatinine of 3.97 and GFR of 14 ml/min. Additional Remarks Patient is resting comfortably. UOP and edema has improved. Wt is down. (Tasia Arvizu) Review of Systems General Constitutional: Fatigue (Tasia Arvizu) Cardiovascular Cardiac: Edema, FAULKNER (Tasia Arvizu) Objective Data Data Vital Signs Date Time Temp Pulse Resp B/P (MAP) Pulse Ox O2 Delivery O2 Flow Rate FiO2 07/25/17 08:31 94 Nasal Cannula 2.00 07/25/17 06:12 98.0 07/25/17 06:11 18 07/25/17 04:00 101.6 112 20 108/62 (77) 95 07/25/17 00:00 97.8 103 20 111/65 (80) 96 07/24/17 21:08 Nasal Cannula 3.00 07/24/17 20:00 100.1 99 20 102/57 (72) 94 07/24/17 16:00 99.0 102 18 107/55 (72) 95 07/24/17 12:00 97.9 103 19 115/59 (77) 95 (Tasia Arvizu) -: 07/25/17 0529 07/25/17 0529 Physical Exam General Appearance: No Acute Distress, Comfortable (Tasia Arvizu) Eyes Eye Exam: Pupils Equal (Tasia Arvizu) Throat Throat Exam: Oral Mucosa [place] & Moist (Tasia Arvizu) Neck Neck Exam: Neck Supple (Tasia Arvizu) Pulmonary Resp Exam: Breath Sounds Equal, No Distress, Decreased Bases (Tasia Arvizu) Cardiology CV Exam: Regular, Normal Sinus Rhythm (Tasia Arvizu) Gastrointestinal/Abdomen GI Exam: Soft, Non-Tender, Bowel Sounds Present (Tasia Arvizu) Extremeties Extremities Exam: Moderate Edema (Tasia Arvizu) Neurologic Neuro Exam: Alert, Awake (Tasia Arvizu) Psychiatric Psych Exam: Appropriate Responses (Tasia Arvizu) Assessment/Plan Problem List: (1) ENRICO (acute kidney injury) ICD Codes: N17.9 - Acute kidney failure, unspecified Plan: Renal US. No acute findings. Mildly increased renal echogenicity characteristic of medical renal disease. ENRICO most likely pre renal Creatinine stable. Baseline in 01/13 was creatinine of less than 1 Serology negative Creatinine stable with good UOP Plan Daily weights Hypokalemia replacement given. Hypocalcemia replacement increased Fluid restriction 1500ml Continue IV lasix UOP has increased and WT is down Continue antibiotics and follow the urine out put and BMP. 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 Improved now (4) Thrombocytopenia ICD Codes: D69.6 - Thrombocytopenia, unspecified Plan: improved (5) Anemia ICD Codes: D64.9 - Anemia, unspecified Status: Acute (6) Endocarditis ICD Codes: I38 - Endocarditis, valve unspecified Status: Acute (Tasia Arvizu) Problem List: (1) ENRICO (acute kidney injury) ICD Codes: N17.9 - Acute kidney failure, unspecified Plan: Renal US. No acute findings. Mildly increased renal echogenicity characteristic of medical renal disease. ENRICO most likely pre renal Creatinine stable. Baseline in 01/13 was creatinine of less than 1 Serology negative Creatinine stable with good UOP Plan Daily weights Hypokalemia replacement given. Hypocalcemia replacement increased Fluid restriction 1500ml Continue IV lasix UOP has increased and WT is down Continue antibiotics and follow the urine out put and BMP. Patient seen and examined, agree with above. Continue diuretics, and watch renal function. 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 Improved now (4) Thrombocytopenia ICD Codes: D69.6 - Thrombocytopenia, unspecified Plan: improved (5) Anemia ICD Codes: D64.9 - Anemia, unspecified Status: Acute (6) Endocarditis ICD Codes: I38 - Endocarditis, valve unspecified Status: Acute (Janak Alonso MD) Problem Qualifiers (1) Anemia: Qualified Codes: D64.9 - Anemia, unspecified (2) Endocarditis: Qualified Codes: I33.0 - Acute and subacute infective endocarditis Tasia Arvizu Jul 25, 2017 11:11 Janak Alonso MD Jul 25, 2017 18:01
[2017-07-25] MEDS ORDERED: MENTHOL LOZENGE BUCCAL PRN (13:45)
--- NOTE | 2017-07-25 14:07 | HHI.HCPN ---
Reason for visit a. To assist with evaluation and management of symptoms including: pain; cough; dyspnea; confusion b. To assist medical decision maker(s) with: better understanding of current medical conditions; weighing benefits/burdens of medical treatment options; making medical treatment decisions. . Subjective/Interval History Patient has tmax of 101.6 overnight and had some tachycardia. Sats remains 94- 96%. No leukocytosis today. Cr. 1.56. Prn pain meds remains the same getting 10 mg oxy x 6times past 24 hours. Pt say pain is about the same, awakens easily, but falls back to sleep. Family/friend interactions no family at bedside. Advance Directives Living Will: Copy in medical record Health Care Surrogate: Copy in medical record Durable Power of Canvas Baster Jumpbasting: Never completed Advance Directive Specifics Date completed: 07/19/17 . Health Care Surrogate(s): Her grandfather -- Kendall Arellano . . Documented care wishes: She wants an attempt at resuscitation but does not want to be kept alive on machines if the doctors think she has little chance of getting off the machines or becoming awake/alert/interactive. . Objective Vital Signs Date Time Temp Pulse Resp B/P (MAP) Pulse Ox O2 Delivery O2 Flow Rate FiO2 07/25/17 12:00 97.8 88 18 111/63 (79) 95 07/25/17 08:31 94 Nasal Cannula 2.00 07/25/17 08:00 98.2 90 18 113/65 (81) 93 07/25/17 06:12 98.0 07/25/17 06:11 18 07/25/17 04:00 101.6 112 20 108/62 (77) 95 07/25/17 00:00 97.8 103 20 111/65 (80) 96 07/24/17 21:08 Nasal Cannula 3.00 07/24/17 20:00 100.1 99 20 102/57 (72) 94 07/24/17 16:00 99.0 102 18 107/55 (72) 95 Intake & Output 07/25/17 07/25/17 07:00 19:00 Intake Total 1540 ml Balance 1540 ml Intake Oral 800 ml IV Total 740 ml # Voids 5 # Bowel Movements 2 Physical Exam CONSTITUTIONAL/GENERAL: This is an adequately nourished patient in a med-surg bed. She is conversant, but easily drifts to sleep. there is a frequent productive cough. she is dyspneic with exertion. There is some generalized edema. TUBES/LINES/DRAINS: Peripheral IVs SKIN: No jaundice, rashes. . Skin temperature appropriate. Not diaphoretic. Numerous embolic type ischemic appearing lesions on fingers, toes, soles.. There is a left medial leg wound. There is some generalized edema. EYES: Pupils equal and round. Extraocular motions intact. No scleral icterus. No injection or drainage. Fundi not examined. ENT: Hearing grossly normal. Nose without bleeding or purulent drainage. Throat without visible erythema, exudates, masses, or lesions. NECK: Trachea midline. Supple, nontender. CARDIOVASCULAR: Regular rate and rhythm without gallops, or rubs. 2/6 systolic murmur. No JVD. RESPIRATORY/CHEST: Symmetric, unlabored respirations. Breath sounds equal bilaterally but diminished. No wheezes. Bilateral crackles worse on left. GASTROINTESTINAL: Abdomen soft, non-tender, nondistended. No hepato-splenomegaly , or palpable masses. No guarding. Bowel sounds present. GENITOURINARY: Without palpable bladder distension. MUSCULOSKELETAL: Extremities with the multiple embolic lesions on fingers, toes , soles. Generalized edema in upper and lower extremities. . No mottling or clubbing. LYMPHATICS: Not examined NEUROLOGICAL: Conversant, but intermittently nods off even when trying to answer a question. Motor and sensory grossly within normal limits. Follows commands. Cognitively sharp until she gets drowsy. PSYCHIATRIC: No obvious anxiety/depression. No apparent hallucinations or other psychotic thought process. . Diagnostic Tests Laboratory Laboratory Tests Test 07/23/17 06:32 07/23/17 08:05 07/24/17 11:45 07/25/17 05:29 Blood Urea Nitrogen 18 MG/DL (7-18) 17 MG/DL (7-18) 19 MG/DL (7-18) Creatinine 1.40 MG/DL (0.50-1.00) 1.45 MG/DL (0.50-1.00) 1.56 MG/DL (0.50-1.00) Random Glucose 92 MG/DL (74-106) 82 MG/DL (74-106) 95 MG/DL (74-106) Total Protein 7.0 GM/DL (6.4-8.2) Calcium Level 7.4 MG/DL (8.5-10.1) 8.0 MG/DL (8.5-10.1) 7.7 MG/DL (8.5-10.1) Sodium Level 136 MEQ/L (136-145) 132 MEQ/L (136-145) 132 MEQ/L (136-145) Potassium Level 4.1 MEQ/L (3.5-5.1) 3.6 MEQ/L (3.5-5.1) 3.1 MEQ/L (3.5-5.1) Chloride Level 102 MEQ/L (98-107) 93 MEQ/L (98-107) 92 MEQ/L (98-107) Carbon Dioxide Level 23.7 MEQ/L (21.0-32.0) 32.0 MEQ/L (21.0-32.0) 31.0 MEQ/L (21.0-32.0) Anion Gap 10 MEQ/L (5-15) 7 MEQ/L (5-15) 9 MEQ/L (5-15) Estimat Glomerular Filtration Rate 45 ML/MIN (>89) 43 ML/MIN (>89) 40 ML/MIN (>89) Protein Corrected Calcium 7.5 MG/DL (8.5-10.1) White Blood Count 6.8 TH/MM3 (4.0-11.0) 7.2 TH/MM3 (4.0-11.0) 7.9 TH/MM3 (4.0-11.0) Red Blood Count 3.09 MIL/MM3 (4.00-5.30) 3.00 MIL/MM3 (4.00-5.30) 2.57 MIL/MM3 (4.00-5.30) Hemoglobin 8.9 GM/DL (11.6-15.3) 8.9 GM/DL (11.6-15.3) 7.6 GM/DL (11.6-15.3) Hematocrit 26.6 % (35.0-46.0) 25.9 % (35.0-46.0) 21.7 % (35.0-46.0) Mean Corpuscular Volume 86.2 FL (80.0-100.0) 86.3 FL (80.0-100.0) 84.3 FL (80.0-100.0) Mean Corpuscular Hemoglobin 28.9 PG (27.0-34.0) 29.5 PG (27.0-34.0) 29.5 PG (27.0-34.0) Mean Corpuscular Hemoglobin Concent 33.5 % (32.0-36.0) 34.2 % (32.0-36.0) 35.0 % (32.0-36.0) Red Cell Distribution Width 17.3 % (11.6-17.2) 17.2 % (11.6-17.2) 17.3 % (11.6-17.2) Platelet Count 260 TH/MM3 (150-450) 252 TH/MM3 (150-450) 259 TH/MM3 (150-450) Mean Platelet Volume 7.0 FL (7.0-11.0) 6.9 FL (7.0-11.0) 7.0 FL (7.0-11.0) Neutrophils (%) (Auto) 71.7 % (16.0-70.0) 73.4 % (16.0-70.0) Lymphocytes (%) (Auto) 15.4 % (9.0-44.0) 14.9 % (9.0-44.0) Monocytes (%) (Auto) 10.6 % (0.0-8.0) 9.7 % (0.0-8.0) Eosinophils (%) (Auto) 1.2 % (0.0-4.0) 0.8 % (0.0-4.0) Basophils (%) (Auto) 1.1 % (0.0-2.0) 1.2 % (0.0-2.0) Neutrophils # (Auto) 5.2 TH/MM3 (1.8-7.7) 5.8 TH/MM3 (1.8-7.7) Lymphocytes # (Auto) 1.1 TH/MM3 (1.0-4.8) 1.2 TH/MM3 (1.0-4.8) Monocytes # (Auto) 0.8 TH/MM3 (0-0.9) 0.8 TH/MM3 (0-0.9) Eosinophils # (Auto) 0.1 TH/MM3 (0-0.4) 0.1 TH/MM3 (0-0.4) Basophils # (Auto) 0.1 TH/MM3 (0-0.2) 0.1 TH/MM3 (0-0.2) CBC Comment DIFF FINAL DIFF FINAL Differential Comment Result Diagram: 07/25/17 0529 07/25/17 0529 Procedures . Assessment and Plan Disease Oriented Problem List: (1) Endocarditis of tricuspid valve (2) Severe sepsis with acute organ dysfunction due to Staphylococcus species (3) Discitis (4) Muscle abscess (5) Cerebral abscess (embolic) (6) severe TR (7) Vaginal bleeding (8) Anasarca (9) Septic arthritis of hip (10) Cavitary pneumonia (11) ENRICO (acute kidney injury) (12) Hemoptysis (13) Anemia (14) Hypoalbuminemia Symptom Scale: (1) Pain 0-10 Scale: 8 Comment: The patient complains of significant pain involving multiple locations. Pain averages at a #8 intensity, frequently goes up to #10, and with opiates will get down only as low as a #7.. Worst areas of pain are her low back; right hip; bottoms of her feet (worse with weightbearing); and her shoulders. Her back pain is significantly worse with coughing. Pain is primarily being controlled with oral oxycodone at 10 mg every 4 hours as needed. She also has an order for parenteral morphine sulfate at 2 mg every 4 hours IV push . . (2) Dyspnea 0-10 Scale: Unable to quantify Comment: The patient also has dyspnea with even minor exertion. Just getting out of bed to use the bedside commode and back into bed completely wind her. There is frequent coughing and she is bringing up blood tinged phlegm. . (3) Cough 0-10 Scale: Unable to quantify Comment: Cough is severe and exacerbates back pain. Cough is producing blood tinged phlegm. . (4) Confusion 0-10 Scale: Unable to quantify Comment: Confusion is intermittent. Pertinent Non-Medical Issues Psychosocial: Hx of IV drug abuse. Has been living with grandparents. Mother lives outside [facility] with pt's stepfather. Biological father lives in [place]. Spiritual: Methodist and spirituality have not played an important role in her life. [employer] services have been declined. Legal: No advance directives. Ethical issues impacting care: No apparent ethical issues . Important Contacts Kendall Arellano (grandparent and health care surrogate) [phone] Yuly Arellano (grandparent) [phone] . Prognosis Grim prognosis is best understood from the note of Dr. Federico Almanza (critical care) from 07/17/17... 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 Care is immensely complicated because of a patent foramen ovale and pulmonary hypertension. Paradoxical septic emboli have seeded multiple organs including brain, skin, lungs. The numerous lung abscesses alone are terminal and will eventually result in massive hemoptysis. The untreated severe tricuspid insufficiency will produce intractable ascites and skin ulceration of the lower extremities unless we push chemical diuresis to the point of renal failure and institute dialysis for fluid balance control. Several digits are already at risk for amputation. She is absolutely not a candidate for valve replacement surgery because of the high risk for hemoptysis and cerebral hemorrhage when anticoagulated for cardiopulmonary bypass (Heparin 30,000 unit). Closure of the PFO is contraindicated because of the risk of placing prosthetic material adjacent to a vegetation. This is terminal condition and she will not survive 6 months from today. The organism is highly sensitive and she may well have a brief period of clinical improvement, but destruction of the involved valve will progress and the complications of peripheral edema with ulceration, intractable ascites, right heart failure, low cardiac output, and renal failure will eventuate. A sudden stroke or massive hemoptysis may shorten this trajectory considerably. I would like to have the recommendations of the Palliative Care team to assist with advising this patient and her family." . Code Status: Full Code Plan == Code Status: FULL CODE. Patient desires a resuscitation attempt. She does not want to be maintained on life support if the doctors think there is little chance of getting her off or she won't return to a quality of life where she is awake, alert, interactive. == Decision making: Patient would drift off to sleep periodically during my visit, but when awake she appeared cognitively intact. Family notes intermittent confusion. I recommend that for significant decision making we encourage "shared decisions" with patient and her grandfather -- Kendall Arellano -- her designated health care surrogate. == Goals of medical treatment: No change in goals of care. Patient and family want to follow Dr. Mosley's recommendation to continue with aggressive antibiotic therapy in the hospital until cultures clear and then arrange for outpatient IV antibiotics as she did the last time. Dr. Mosley says she will need a total of 8 weeks of coverage for her discitis. T == Symptoms * Pain level is about the same. Patient rarely has pain levels below #7 even with her current opiate regimen, I am reluctant to increase opioids while goals remain very aggressive. She already is lethargic at times and has intermittent confusion and we want to be able to observe neuro changed. She appears OK with this regimen. * Dyspnea: Her SOB is likely due to her multiple septic lesions throughout both lungs. Opiates and benzos would certainly help relieve her sense of dyspnea, but as noted above, I do not recommend any increases in sedating meds while the goals are aggressive. * Cough: Patient has hemoptysis. I would like her to be able to clear some of these secretions. Her current opiate regiment is a fairly effective cough suppressant. If additional cough suppression is needed would recommend dextromethorphan rather than additional opiates. * Confusion: This is probably a multi-factorial encephalopathy from her septic brain lesions, poor nutrition, medication, etc. == Palliative care will continue to follow to assist with symptom management and further clarify goals of medical treatment as the clinical course evolves. . Attestation To help prompt me to consider important information that might be impacting today's encounter and assessment, information from prior notes written by myself or my colleagues may have been "brought forward" into today's note. My signature on this note, however, is an attestation that I personally performed the exam, history, and/or decision-making noted today, and, unless otherwise indicated, the interactions with patient, family, and staff as well as the review of records all occurred today. I also attest that the listed assessment and stated plan reflect my best clinical judgment today based on the combination of historical information, prior notes, and today's exam/ interactions. When time spent is documented, it refers only to time spent today by the signer, or if indicated, combined time spent today by collaborating physician/nurse practitioner. Hai Lee MD Jul 25, 2017 14:07
[2017-07-25] MEDS: LORazepam 1 MG TAB PO PRN (16:27)
[2017-07-26] VITALS (10 sets, daily range): BP systolic 101–117; BP diastolic 60–75; PULSE 88–104; RESP 16–20; TEMP 97.5–100; O2SAT 94–98
[2017-07-26] MEDS: LORazepam 1 MG TAB PO PRN (00:10)
[2017-07-26] MEDS: guaiFENesin SOLUTION 200 MG/10 ML CUP PO PRN ×4 (00:10→21:38)
[2017-07-26] MEDS: BENZONATATE 100 MG CAP PO PRN ×3 (02:51→15:22)
[2017-07-26] MEDS: ONDANSETRON HCL 4 MG/2 ML VIAL IV PUSH PRN (03:33)
[2017-07-26] MEDS: SODIUM CHLORIDE 0.9% FLUSH 10 ML FLUSH IV FLUSH PRN ×2 (03:34→05:31)
[2017-07-26] MEDS: CEFAZOLIN INJ 2,000 MG in SODIUM CHLORIDE 0.9% INJ 100 ML IV SCH ×3 (05:30→20:25)
[2017-07-26] MEDS: MUPIROCIN 2% OINT 22 GM TUBE TOPICAL SCH ×3 (06:24→20:26)
[2017-07-26] MEDS ORDERED: ALBUMIN 5% INJ 500 ML IV ONE (07:45)
--- NOTE | 2017-07-26 08:38 | HHI.FPPN ---
Subjective Remarks Patient is "ok." Just received pain meds - states she was in "alot of pain in the back, right hip, and feet." Eating breakfast. Tmax 100.0. No other change in vitals. Weight loss of of 5 kg in 2 days. I/O 1.8/2.5, negative balance. Received 3 doses of IV albumin 25 grams, last dose was yesterday. Denies melena , hematochezia, or active bleeding. (Rosamaria Sanford MD R1) Objective Vitals Vital Signs Date Time Temp Pulse Resp B/P (MAP) Pulse Ox O2 Delivery O2 Flow Rate FiO2 07/26/17 04:08 98 07/26/17 04:00 100.0 103 20 106/65 (79) 96 07/26/17 00:00 99.0 104 20 106/62 (77) 98 07/26/17 00:00 95 07/25/17 20:08 109 07/25/17 20:00 98.0 104 20 110/68 (82) 96 07/25/17 19:58 96 Nasal Cannula 2.00 07/25/17 19:25 Nasal Cannula 2.00 07/25/17 16:00 98.3 100 18 118/73 (88) 92 07/25/17 12:00 97.8 88 18 111/63 (79) 95 07/25/17 08:31 94 Nasal Cannula 2.00 I/O 07/25/17 07/25/17 07/25/17 07/26/17 07/26/17 07/26/17 07:00 15:00 23:00 07:00 15:00 23:00 Intake Total 1420 ml 820 ml 520 ml Output Total 1500 ml 1000 ml Balance 1420 ml -680 ml -480 ml Intake Oral 800 ml 720 ml 420 ml IV Total 620 ml 100 ml 100 ml Output Urine Total 1500 ml 1000 ml # Voids 5 7 12 # Bowel Movements 2 1 2 (Rosamaria Sanford MD R1) Result Diagram: 07/25/1752807/25/17528 Objective Remarks GENERAL: This is an ill appearing female pt. Generally edematous. SKIN: On the medial aspect of the left lower leg there is a 1x1 cm scabbed, healing lesion w/ a blackened scab. No bleeding present. Multiple splinter hemorrhages/janeway lesions on bilateral fingers and toes and surrounding ecchymosis. Patches of a rash of small red papules on dorsal hands and on left lower leg - improved. Left thumb tip has a 1.5x1mm area of redness and skin sloughing. No drainage or bleeding. At tip of left toe, appearance of a stable, desquamation of skin and healing lesion noted. EYES: Extraocular motions intact. ENT: Moist mucous membranes. CARDIOVASCULAR: Tachycardic rate with normal rhythm. Grade 3/6 systolic murmur. RESPIRATORY: Decreased inspiratory air flow bilaterally, occasional crackles heard. No accessory muscle use. 2L NC in place. Frequent cough productive of bloody sputum. GASTROINTESTINAL: Abdomen non-tender. MUSCULOSKELETAL: Edematous (pitting) extremities, significant at the feet bilaterally. NEUROLOGICAL: Able to maintain conversation. Normal speech. 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 Poor echocardiogram, severe tricuspid insufficiency, pulmonary hypertension and patent foramen ovale were noted. Widespread infection to the lungs, brain, hip, multiple skin sites, and possibly other areas of the body. She is fluid overloaded with significant edema being treated w/IV lasix. Right hip joint was aspirated by IR. ID was consulted. Serial blood cultures were monitored, last blood cultures were negative for 3 days. Nephrology, orthopedics, and cardiology were also consulted. Due to the progressive nature of the disease spread, palliative was consulted. Current consensus is to continue IV antibiotics unless a major setback in her condition arises; will then transition to comfort measures. Will continue aggressive treatment. Discharge Planning Discharge care plan will require IV antibiotics x 8 weeks for aggressive therapy per ID recs. PICC line placement will be ordered on admission day after neg blood cx and ID and Nephro clearance. Plan for home health while receiving IV antibiotics and care/monitoring for her multiple complications. We are currently trying to achieve more aggressive diuresis before she will be able to go home. (Rosamaria Sanford MD R1) Attending Attestation Patient seen and examined. Case reviewed and discussed with the resident team. Agree with plan of care as discussed with me and documented in the resident note. Patient clinically stable, volume overload is improving. Hemoglobin is stable (VanDemark,Tessie Kenisha MD) Problem List: (1) Endocarditis of tricuspid valve ICD Codes: I36.8 - Other nonrheumatic tricuspid valve disorders Status: Acute Plan: Patient with history of endocarditis and septic pulmonary emboli 11/2016 and 12/2016. Symptoms started after relapse with IV heroin. HIV, hepatitis panel negative Tricuspid endocarditis with septic pulmonary emboli, left thigh muscle abscess, right hip joint effusion, brain abscess, L5-S1 discitis, pyelonephritis/renal infarction This is a terminal condition with life expectancy no more than 6 months. S/p right hip aspiration draining 4ml of yellow purulent appearing fluid on by Dr. Gilliland Phlegmon embedded in muscle associated w/r. hip joint Labial phlegmon 07/12 Sputum culture growing harrington sensitive staph aureus 07/10 urine culture growing 50-100,000 CFU/mL mixed gram positive brittni 07/10 CTA: widespread patchy cavitary pneumonia of both lung on the basis of septic emboli 07/11 Wound culture growing harrington sensitive staph aureus and beta strep Group F 07/11 Echo shows vegetation on the tricuspid valve, pulmonary valve regurg 07/10 Blood cultures staph aureus x 4 07/12 Blood cultures staph aureus and viridans strep x 2 07/14 Blood cultures staph aureus 07/15 Blood cultures no growth 07/15 KALIN tricuspid vegetation, severe tricuspid regurg, small PFO with right to left shunt (potential source for systemic emboli) 07/16 Synovial fluid culture staph aureus 07/19 VQ scan: septic emboli 07/19 Blood cultures no growth Plan: - CM consulted - appreciate assistance in discharge planning - Palliative care consulted- appreciate assistance and recommendations - ID consulted, appreciate assistance * s/p Oxacillin 2g IV Q4H (started 07/12-07/24). * Continue IV Ancef 2 g q8H (better for fluid overloaded patient) (07/24 - ) * Will require PICC line for continued outpatient treatment For pain: - Oxycodone 5 mg Q4H PRN pain 3-5 - Oxycodone 10 mg Q4H PRN for pain 6-10 - Morphine 2 mg Q4H IV for pain PRN breakthrough Imagin/19 Hip MRI small moderate right hip joint effusion and small muscular abscess in the proximal left thigh adjacent to the left femoral head * CTA: No PE. Widespread patchy cavitary pneumonia both lungs and probable on the basis of septic emboli. Nonspecific hepatosplenomegaly. Probable tricuspid regurgitation. * 07/10 CXR: Patchy cavitary pneumonia, fairly stable on the right but substantially worse on the left * Lower extremity ultrasound: Negative for venous thrombosis * KALIN 07/15 confirms right-sided endocarditis with severe tricuspid regurgitation (w/mobile vegetation on tricuspid valve), moderate to severe pulmonary hypertension, and no other valvular vegetation.A patent foramen ovale is present with a [id number]-[id number]-[id number] shunt demonstrated by color flow Doppler interrogation. * 07/16 Brain MRI: 2 areas of central ring enhancement * 07/16 Spine MRI: discitis involving L5-S1, possible right renal infarction versus focal pyelonephritis (2) Anasarca ICD Codes: R60.1 - Generalized edema Status: Acute Plan: Improving with IV lasix and albumin Nephrology consulted, appreciate recs Spoke w/nephrology on 07/24, started: albumin IV 25 mg BID 2-3 days, requires 4 doses. 3 doses received, last on . Will give a one time dose today to complete 2 day course. Con't Lasix 80 mg IV Continue to monitor I/O's, daily weights, renal function (3) Lesion of thumb ICD Codes: L98.9 - Disorder of the skin and subcutaneous tissue, unspecified Status: Acute Plan: Patient has multiple Janeway lesions at the hands and feet Keep exposed to air, apply Bactroban ointment TID Will continue to monitor (4) Acute renal failure ICD Codes: N17.9 - Acute kidney failure, unspecified Status: Acute Plan: consulted Nephrology, appreciate recommendations BUN/Cr has improved, GFR stable (5) Rash and nonspecific skin eruption ICD Codes: R21 - Rash and other nonspecific skin eruption Status: Acute Plan: Possible contact dermatitis versus reaction to edema Improvement in itching and rash appearance observed today Continue hydrocortisone 0.5% cream to apply to rash on hands and lower legs (6) Anemia ICD Codes: D64.9 - Anemia, unspecified Status: Acute Plan: Baseline hemoglobin around 13.1 per chart review S/p 2 units transfusion on 07/16, 1 unit on 07/18, 07/19 Drop in Hgb from 8.9 on 07/24 to 7.6 on 07/25 Check CBC this AM Consider hemoccult stool Transfuse as needed (Hgb less than or equal to 7) (7) Cavitary pneumonia ICD Codes: J18.9 - Pneumonia, unspecified organism; J98.4 - Other disorders of lung Status: Acute (8) Muscle abscess ICD Codes: M62.89 - Other specified disorders of muscle Status: Acute (9) Labial swelling ICD Codes: N94.89 - Other specified conditions associated with female genital organs and menstrual cycle Status: Acute Plan: Unilateral, affecting the left labia Soft tissue US shows phlegmon (10) IVDU (intravenous drug user) ICD Codes: F19.90 - Other psychoactive substance use, unspecified, uncomplicated Status: Chronic Plan: clonidine 0.1 mg every 6 hours when necessary for agitation (11) Nutrition, metabolism, and development symptoms ICD Codes: R63.8 - Other symptoms and signs concerning food and fluid intake Status: Acute Plan: Diet: Regular Electrolytes: continue to monitor and replete PRN, check BMP daily Fluids: PO DVT PPX: SCDs, chemical anticoagulation contraindicated in the setting of endocarditis. Continue to encourage ambulation around floor. (Rosamaria Sanford MD R1) Problem Qualifiers (1) Acute renal failure: Qualified Codes: N17.9 - Acute kidney failure, unspecified (2) Anemia: Qualified Codes: D64.9 - Anemia, unspecified Rosamaria Sanford MD R1 Jul 26, 2017 08:38 Tessie Siegel MD Jul 26, 2017 16:14
[2017-07-26] MEDS: SODIUM CHLORIDE 0.9% FLUSH 10 ML FLUSH IV FLUSH SCH ×2 (09:39→20:25)
[2017-07-26] MEDS: FUROSEMIDE 100 MG/10 ML VIAL IV PUSH SCH ×2 (09:39→17:23)
[2017-07-26] MEDS: CALCIUM CARBONATE 1.25 GM (CA 500 MG) TAB PO SCH (09:40)
[2017-07-26] MEDS: clonazePAM 1 MG TAB PO SCH ×2 (09:40→20:25)
--- NOTE | 2017-07-26 09:56 | HHI.NPPN ---
Subjective Renal Failure: Acute History of Present Illness 26-year-old female with history of endocarditis and IV drug use and anxiety. Presented here today from the [facility] clinic due to worsening generalized body aches, fatigue, cough, painful fingers and toes. Symptoms started about 1 week ago and have progressively worsened. Patient reports that she was previously clean rom IV drug use for 3 years but had relapse about 1 week ago. Used IV heroin. Nephrology is consulted for acute kidney injury with creatinine of 3.97 and GFR of 14 ml/min. Additional Remarks Patient is resting comfortably. UOP and edema are improving. (Tasia Arvizu) Review of Systems General Constitutional: Fatigue (Tasia Arvizu) Respiratory Lungs: SOB (Tasia Arvizu) Cardiovascular Cardiac: Edema, FAULKNER (Tasia Arvizu) Gastrointestinal GI Remarks Denies any Abdominal pain (Tasia Arvizu) Genitourinary Remarks Denies any dysuria (Tasia Arvizu) Objective Data Data Vital Signs Date Time Temp Pulse Resp B/P (MAP) Pulse Ox O2 Delivery O2 Flow Rate FiO2 07/26/17 04:08 98 07/26/17 04:00 100.0 103 20 106/65 (79) 96 07/26/17 00:00 99.0 104 20 106/62 (77) 98 07/26/17 00:00 95 07/25/17 20:08 109 07/25/17 20:00 98.0 104 20 110/68 (82) 96 07/25/17 19:58 96 Nasal Cannula 2.00 07/25/17 19:25 Nasal Cannula 2.00 07/25/17 16:00 98.3 100 18 118/73 (88) 92 07/25/17 12:00 97.8 88 18 111/63 (79) 95 (Tasia Arvizu) -: 07/25/17 0529 07/25/17 0529 Physical Exam General Appearance: No Acute Distress, Comfortable (Tasia Arvizu) Eyes Eye Exam: Pupils Equal (Tasia Arvizu) Throat Throat Exam: Oral Mucosa [place] & Moist (Tasia Arvizu) Neck Neck Exam: Neck Supple (Tasia Arvizu) Pulmonary Resp Exam: Breath Sounds Equal, No Distress, Decreased Bases (Tasia Arvizu) Cardiology CV Exam: Regular, Normal Sinus Rhythm (Tasia Arvizu) Gastrointestinal/Abdomen GI Exam: Soft, Non-Tender, Bowel Sounds Present (Tasia Arvizu) Extremeties Extremities Exam: Moderate Edema (Tasia Arvizu) Neurologic Neuro Exam: Alert, Awake (Tasia Arvizu) Psychiatric Psych Exam: Appropriate Responses (Tasia Arvizu) Assessment/Plan Problem List: (1) ENRICO (acute kidney injury) ICD Codes: N17.9 - Acute kidney failure, unspecified Plan: Renal US. No acute findings. Mildly increased renal echogenicity characteristic of medical renal disease. ENRICO most likely pre renal Creatinine stable. Baseline in 01/13 was creatinine of less than 1 Serology negative Creatinine stable with good UOP Plan Daily weights Hypokalemia replacement given. Hypocalcemia replacement increased Fluid restriction 1500ml Continue IV lasix Continue antibiotics and follow the urine out put and BMP. Labs pending today (2) Hypocalcemia ICD Codes: E83.51 - Hypocalcemia Status: Acute Plan: On oral replacement (3) Hyponatremia ICD Codes: E87.1 - Hypo-osmolality and hyponatremia Plan: Hyponatremia from most likely SIADH from infection. Improved now (4) Thrombocytopenia ICD Codes: D69.6 - Thrombocytopenia, unspecified Plan: improved (5) Anemia ICD Codes: D64.9 - Anemia, unspecified Status: Acute (6) Endocarditis ICD Codes: I38 - Endocarditis, valve unspecified Status: Acute (Tasia Arvizu) Problem List: (1) ENRICO (acute kidney injury) ICD Codes: N17.9 - Acute kidney failure, unspecified Plan: Renal US. No acute findings. Mildly increased renal echogenicity characteristic of medical renal disease. ENRICO most likely pre renal Creatinine stable. Baseline in 01/13 was creatinine of less than 1 Serology negative Creatinine stable with good UOP Plan Daily weights Hypokalemia replacement given. Hypocalcemia replacement increased Fluid restriction 1500ml Continue IV lasix Continue antibiotics and follow the urine out put and BMP. Patient seen and examined,agree with above. Creatinine is better, 1.2, K is 3.0, will replace. Continue Lasix, edema is slowly improving. 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 Improved now (4) Thrombocytopenia ICD Codes: D69.6 - Thrombocytopenia, unspecified Plan: improved (5) Anemia ICD Codes: D64.9 - Anemia, unspecified Status: Acute (6) Endocarditis ICD Codes: I38 - Endocarditis, valve unspecified Status: Acute (Janak Alonso MD) Problem Qualifiers (1) Anemia: Qualified Codes: D64.9 - Anemia, unspecified (2) Endocarditis: Qualified Codes: I33.0 - Acute and subacute infective endocarditis Tasia Arvizu Jul 26, 2017 09:56 Janak Alonso MD Jul 26, 2017 15:18
[2017-07-26] MEDS ORDERED: medroxyPROGESTERone ACETATE SUSP 150 MG/ML SYRINGE IM ONE (13:30)
[2017-07-26 14:16] LABS: HEMATOCRIT 24.1 % (35.0-46.0); HEMOGLOBIN 8.2 GM/DL (11.6-15.3); MEAN CORPUSCULAR HEMOGLOBIN 29.1 PG (27.0-34.0); MEAN CORPUSCULAR HGB CONC 33.8 % (32.0-36.0); MEAN PLATELET VOLUME 6.9 FL (7.0-11.0); PLATELET COUNT 277 TH/MM3 (150-450); RED BLOOD COUNT 2.81 MIL/MM3 (4.00-5.30); RED CELL DISTRIBUTION WIDTH 17.1 % (11.6-17.2); WHITE BLOOD COUNT 7.9 TH/MM3 (4.0-11.0)
--- NOTE | 2017-07-26 14:16 | HHI.IDPN ---
Subjective Subjective Remarks ambulates to b/s commode w/o assistance no fever remains on 4 L O2 NC blood clx are negative Antibiotics cefazoline Allergies: Coded Allergies: vancomycin (Verified Allergy, Intermediate, Rash, 07/10/17) Objective . Vital Signs Date Time Temp Pulse Resp B/P (MAP) Pulse Ox O2 Delivery O2 Flow Rate FiO2 07/26/17 12:26 94 Nasal Cannula 2.00 07/26/17 12:00 97.8 96 16 112/62 (79) 96 07/26/17 08:00 98.2 100 16 109/63 (78) 94 07/26/17 04:08 98 07/26/17 04:00 100.0 103 20 106/65 (79) 96 07/26/17 00:00 99.0 104 20 106/62 (77) 98 07/26/17 00:00 95 07/25/17 20:08 109 07/25/17 20:00 98.0 104 20 110/68 (82) 96 07/25/17 19:58 96 Nasal Cannula 2.00 07/25/17 19:25 Nasal Cannula 2.00 07/25/17 16:00 98.3 100 18 118/73 (88) 92 . Laboratory Tests Test 07/25/17 05:29 White Blood Count 7.9 TH/MM3 Red Blood Count 2.57 MIL/MM3 Hemoglobin 7.6 GM/DL Hematocrit 21.7 % Mean Corpuscular Volume 84.3 FL Mean Corpuscular Hemoglobin 29.5 PG Mean Corpuscular Hemoglobin Concent 35.0 % Red Cell Distribution Width 17.3 % Platelet Count 259 TH/MM3 Mean Platelet Volume 7.0 FL Neutrophils (%) (Auto) 73.4 % Lymphocytes (%) (Auto) 14.9 % Monocytes (%) (Auto) 9.7 % Eosinophils (%) (Auto) 0.8 % Basophils (%) (Auto) 1.2 % Neutrophils # (Auto) 5.8 TH/MM3 Lymphocytes # (Auto) 1.2 TH/MM3 Monocytes # (Auto) 0.8 TH/MM3 Eosinophils # (Auto) 0.1 TH/MM3 Basophils # (Auto) 0.1 TH/MM3 CBC Comment DIFF FINAL Differential Comment Laboratory Tests Test 07/25/17 05:29 Blood Urea Nitrogen 19 MG/DL Creatinine 1.56 MG/DL Random Glucose 95 MG/DL Calcium Level 7.7 MG/DL Sodium Level 132 MEQ/L Potassium Level 3.1 MEQ/L Chloride Level 92 MEQ/L Carbon Dioxide Level 31.0 MEQ/L Anion Gap 9 MEQ/L Estimat Glomerular Filtration Rate 40 ML/MIN Imaging Last Impressions Lung Scan-VQ Nuclear Medicine 07/19/17 0000 Signed Impressions: Service Date/Time: Wednesday, July 19, 2017 19:35 - CONCLUSION: 1. High probability for pulmonary embolus, likely septic emboli given the appearance of cavitary lesions in the lungs. Sebastien Moore MD Hip MRI 07/19/17 0000 Signed Impressions: Service Date/Time: Wednesday, July 19, 2017 21:25 - CONCLUSION: 1. No evidence for osteomyelitis. 2. Stable small to moderate-sized right hip joint effusion which now does demonstrate some rim enhancement postcontrast. It is unclear if this is related to infection or recent aspiration. 3. Relatively stable presumed small muscular abscess in the proximal left thigh adjacent to the left femoral head. 4. Extensive subcutaneous edema. Sebastien Moore MD Chest X-Ray 07/19/17 0000 Signed Impressions: Service Date/Time: Wednesday, July 19, 2017 18:37 - CONCLUSION: 1. Stable to slight improvement of bilateral airspace disease. Multiple cavitary lesions remain with trace pleural fluid. Sebastien Moore MD Soft Tissue Ultrasound 07/18/17 0000 Signed Impressions: Service Date/Time: June 15:11 - CONCLUSION: Heterogeneous mass/collection Chuy King MD Brain MRI 07/16/17 1124 Signed Impressions: Service Date/Time: Sunday, July 16, 2017 11:38 - CONCLUSION: 1. Focal area of edema with at least 2 areas of central ring enhancement. Findings could represent both neoplastic and infectious processes. Considering the reported history, I favor the latter. 2. Lesion appears to be isolated. No midline shift. Ihsan Garvin MD Lumbar Spine MRI 07/16/17 0000 Signed Impressions: Service Date/Time: Sunday, July 16, 2017 11:38 - CONCLUSION: Cannot exclude discitis involving L5-S1. Possible right renal infarction versus focal pyelonephritis. Free fluid in the pelvis. Chuy King MD Hip Aspiration/Injection 07/16/17 0000 Signed Impressions: Service Date/Time: Sunday, July 16, 2017 14:08 - CONCLUSION: Uncomplicated aspiration as above. Arpan Gilliland MD Abscess Drainage X-Ray 07/16/17 0000 Signed Impressions: Service Date/Time: Sunday, July 16, 2017 14:46 - CONCLUSION: A region of decreased, irregular echogenicity was identified corresponding to the area the patient's known abscess. This did not appear to represent a well-circumscribed fluid collection or ultrasound. No fluid could be aspirated from this. Arpan Gilliland MD Lower Extremity Ultrasound 07/14/17 0000 Signed Impressions: Service Date/Time: Friday, July 14, 2017 11:50 - CONCLUSION: Normal examination. Dang Bahena MD Hip and Pelvis X-Ray 07/14/17 0000 Signed Impressions: Service Date/Time: Friday, July 14, 2017 14:51 - CONCLUSION: Unremarkable examination of the right hip. Dang Bahena MD Renal Ultrasound 07/11/17 0000 Signed Impressions: Service Date/Time: June 09:00 - CONCLUSION: 1. No acute findings. Mildly increased renal echogenicity characteristic of medical renal disease. Sebastien Moore MD CT Angiography 07/10/17 0000 Signed Impressions: Service Date/Time: Monday, July 10, 2017 19:34 - CONCLUSION: 1. No pulmonary embolus. 2. Widespread patchy cavitary pneumonia of both lungs and probably on the basis of septic emboli. 3. Nonspecific hepatosplenomegaly. 4. Probable tricuspid regurgitation. Chuy Yang MD Physical Exam CONSTITUTIONAL/GENERAL: This is an adequately nourished patient, quite SOB, on 3 L of NC O2 TUBES/LINES/DRAINS: SKIN: No jaundice, rashes, or lesions. Ecchymoses on upper extremities. No wounds seen anteriorly. Skin temperature appropriate. Not diaphoretic. On exam: SKIN L thumb and L hallux evolving large embolic lesions - healing L thumb tip - healing really nicely EYES: Pupils equal and round and reactive. Extraocular motions intact. No scleral icterus. No injection or drainage. Fundi not examined. CARDIOVASCULAR: regular rate, rhythm + 1-2/6 holosystolic murmur S1S2 present no gallops, or rubs. No JVD. Peripheral pulses symmetric. RESPIRATORY/CHEST: Symmetric, unlabored respirations. Clear to auscultation. Breath sounds equal bilaterally. No wheezes, rales, or rhonchi. GASTROINTESTINAL: Abdomen soft, non-tender, nondistended. No hepato-splenomegaly , or palpable masses. No guarding. Bowel sounds present. MUSCULOSKELETAL: Extremities without clubbing, cyanosis, Significantly improved edema 2-3 ++. No joint tenderness or effusion noted. No calf tenderness. No mottling or clubbing. LYMPHATICS: No palpable cervical or supraclavicular adenopathy.lear speech NEUROLOGICAL: Awake and alert. Motor and sensory grossly within normal limits. Follows commands. Clear speech. Moves all extremities. PSYCHIATRIC: No obvious anxiety/depression. no apparent hallucinations or other psychotic thought process. L Assessment & Plan Remarks TV endocarditis with PFO , MSSA with multiple systemic embolic lesions, including brain - PFO will explain systemic emboli in this pt Red man sd to vancomycin L5S1 diskitis Vir strep bacteremia - also likley 2/2 endocarditis 5.1 x 1.9 cm presumed small muscular abscess in the proximal left thigh adjacent to the left femoral head. Active IV user with high risk for sugery 2/2 it Prohibitive surgery risk per CTS eval Very poor prognosis. Palliative involved However I would recommend to continue conservative measures : IV abx, drainage of involved joints Anasarca - improved with switch to cefazoline Hip effusion - unchanged, small - dw radilogist; will not tap it at this poin Plan: cont cefaozline x 6 weeks from the 1st negative blood clx OK to dc from ID standpoint with PICC line and reliable family member supervision Pt though has TV endocarditis is expected to have possibly complications of L sided endocarditis 2/2 PFO incluiding septic emboli to brain dw residents Shana Mosley MD Jul 26, 2017 14:16
--- NOTE | 2017-07-26 14:17 | HHI.FF ---
Infusion Therapy Location of Infusion Therapy: [facility] IV Infusion Order Patient Information Patient Weight 91.4 kg Diagnosis: Diagnosis endocarditis Coded Allergies: vancomycin (Verified Allergy, Intermediate, Rash, 07/10/17) Administer Medication Cefazolin 2 grams IV q 8 hours Start Treatment: Jul 27, 2017 Stop Treatment: August 29, 2017 Additional Information Venous access: PICC Line Additional Instructions [x] Peripheral flush and dressing changes per protocol [x] Implanted port and central liner man: * Implanted port: 10 ml Normal Saline followed by 5 ml Heparin 100 units/ml Heparin flush after each use and monthly to maintain. [] May leave port accessed during therapy. [] May leave peripheral site accessed for duration of therapy. [x] If patient has SOB or respiratory distress, check oxygen saturation. If less than 90% or clinical signs of respiratory distress, administer oxygen at 2 L/min. via nasal cannula and notify physician. [x] Anaphylaxis/Reaction orders: * Stop infusion. * Keep IV line open with saline flush. * Notify physician. * Monitor vital signs every 15 minutes until symptoms resolve. * Check Oxygen saturation; Oxygen at 2 L/min. via nasal cannula if less than 90% or clinical signs of respiratory distress. * Administer diphenhydramine (Benadryl) 25 mg IV STAT, (unless patient has received as pre-med). May repeat once, if necessary. * Solu-Cortef 250 mg IVP over 30-60 seconds, use 100 mg vials for each dissolution. * Epinephrine (1mg/1 ml) 0.3 mg subcutaneously or IVP now with any signs of respiratory distress. * Check with physician for new additional pre-med orders if patient is re- challenged or re-treated. [x] May remove PICC line when treatment complete, after confirming with Physician. [x] If the patient is admitted to the hospital, the ED, or transferred via [facility] , complete transfer form including medication reconciliation order sheet. Laboratory Tests Weekly Labs: CBC w/diff, Creatinine Shana Mosley MD Jul 26, 2017 14:17
[2017-07-26] MEDS ORDERED: CEFA2SOL IV (14:20)
[2017-07-26] MEDS ORDERED: EPIN1INJ21 SQ (14:20)
[2017-07-26] MEDS ORDERED: EPIN1INJ21 IV PUSH (14:20)
[2017-07-26] MEDS ORDERED: SOLU250I IV PUSH (14:20)
[2017-07-26 14:44] LABS: BICARBONATE 34.6 MEQ/L (21.0-32.0); CALCIUM 8.5 MG/DL (8.5-10.1); CREATININE 1.26 MG/DL (0.50-1.00)
[2017-07-26 14:45] LABS: CALCIUM-PROTEIN CORRECTED 8.2 MG/DL (8.5-10.1); TOTAL PROTEIN 7.8 GM/DL (6.4-8.2)
[2017-07-26] MEDS ORDERED: POTASSIUM CHLOR 20 MEQ PREMIX 100 ML IV ONE (16:00)
[2017-07-26] MEDS ORDERED: GETGO ROLLING W1 MI1 (17:12)
[2017-07-27] VITALS (9 sets, daily range): BP systolic 100–136; BP diastolic 58–84; PULSE 78–120; RESP 17–21; TEMP 97.5–99.6; O2SAT 91–98
[2017-07-27] MEDS: BENZONATATE 100 MG CAP PO PRN ×3 (01:18→17:04)
[2017-07-27] MEDS: ONDANSETRON HCL 4 MG/2 ML VIAL IV PUSH PRN (01:21)
[2017-07-27] MEDS: LORazepam 1 MG TAB PO PRN ×3 (03:51→23:01)
[2017-07-27] MEDS: guaiFENesin SOLUTION 200 MG/10 ML CUP PO PRN ×3 (03:51→20:23)
[2017-07-27] MEDS: MENTHOL LOZENGE BUCCAL PRN (04:42)
[2017-07-27] MEDS: SODIUM CHLORIDE 0.9% FLUSH 10 ML FLUSH IV FLUSH PRN (04:42)
[2017-07-27] MEDS: CEFAZOLIN INJ 2,000 MG in SODIUM CHLORIDE 0.9% INJ 100 ML IV SCH ×3 (04:42→22:58)
[2017-07-27] MEDS: MUPIROCIN 2% OINT 22 GM TUBE TOPICAL SCH ×3 (04:45→22:00)
[2017-07-27] MEDS ORDERED: POTASSIUM CHLORIDE 20 MEQ CONTROLLED RELEASE TAB PO ONE (07:30)
[2017-07-27 08:19] LABS: HEMATOCRIT 25.3 % (35.0-46.0); HEMOGLOBIN 8.6 GM/DL (11.6-15.3); MEAN CELL VOLUME 86.1 FL (80.0-100.0); MEAN CORPUSCULAR HEMOGLOBIN 29.3 PG (27.0-34.0); PLATELET COUNT 320 TH/MM3 (150-450); RED BLOOD COUNT 2.93 MIL/MM3 (4.00-5.30); RED CELL DISTRIBUTION WIDTH 16.9 % (11.6-17.2); WHITE BLOOD COUNT 10.8 TH/MM3 (4.0-11.0)
[2017-07-27 08:39] LABS: ALBUMIN 2.1 GM/DL (3.4-5.0); BICARBONATE 35.8 MEQ/L (21.0-32.0); CALCIUM 8.3 MG/DL (8.5-10.1); CREATININE 1.42 MG/DL (0.50-1.00)
--- NOTE | 2017-07-27 09:25 | HHI.NPPN ---
Subjective Renal Failure: Acute History of Present Illness 26-year-old female with history of endocarditis and IV drug use and anxiety. Presented here today from the [facility] clinic due to worsening generalized body aches, fatigue, cough, painful fingers and toes. Symptoms started about 1 week ago and have progressively worsened. Patient reports that she was previously clean rom IV drug use for 3 years but had relapse about 1 week ago. Used IV heroin. Nephrology is consulted for acute kidney injury with creatinine of 3.97 and GFR of 14 ml/min. Additional Remarks Patient is alert, no SOB, started eating better. Review of Systems General Constitutional: Fatigue Respiratory Lungs: SOB Cardiovascular Cardiac: Edema, FAULKNER Gastrointestinal GI Remarks Denies any Abdominal pain Genitourinary Remarks Denies any dysuria Objective Data Data Vital Signs Date Time Temp Pulse Resp B/P (MAP) Pulse Ox O2 Delivery O2 Flow Rate FiO2 07/27/17 08:00 99.6 108 17 106/60 (75) 91 07/27/17 04:00 97.9 120 20 118/68 (85) 95 07/27/17 03:58 115 07/27/17 00:00 97.7 94 20 112/59 (76) 98 07/26/17 23:46 91 07/26/17 21:22 88 07/26/17 21:19 Nasal Cannula 2.00 07/26/17 20:23 96 Nasal Cannula 2.00 07/26/17 20:00 97.5 97 20 117/75 (89) 96 07/26/17 16:00 97.5 96 16 101/60 (74) 96 07/26/17 12:26 94 Nasal Cannula 2.00 07/26/17 12:00 97.8 96 16 112/62 (79) 96 -: 07/27/17 0644 07/27/17 0644 Physical Exam General Appearance: No Acute Distress, Comfortable Eyes Eye Exam: Pupils Equal Throat Throat Exam: Oral Mucosa [place] & Moist Neck Neck Exam: Neck Supple Pulmonary Resp Exam: Breath Sounds Equal, No Distress, Decreased Bases Cardiology CV Exam: Regular, Normal Sinus Rhythm Gastrointestinal/Abdomen GI Exam: Soft, Non-Tender, Bowel Sounds Present Extremeties Extremities Exam: Moderate Edema Neurologic Neuro Exam: Alert, Awake Psychiatric Psych Exam: Appropriate Responses Assessment/Plan Problem List: (1) ENRICO (acute kidney injury) ICD Codes: N17.9 - Acute kidney failure, unspecified Plan: Renal US. No acute findings. Mildly increased renal echogenicity characteristic of medical renal disease. ENRICO most likely pre renal Creatinine stable. Baseline in 01/13 was creatinine of less than 1 Serology negative Creatinine stable with good UOP Plan Daily weights Hypokalemia replacement given. Hypocalcemia replacement increased Fluid restriction 1500ml Continue IV lasix Continue antibiotics and follow the urine out put and BMP. Patient seen and examined,agree with above. Creatinine is now 1.4, K is low but better. Continue diuresis, edema is improving. 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 Improved now (4) Thrombocytopenia ICD Codes: D69.6 - Thrombocytopenia, unspecified Plan: improved (5) Anemia ICD Codes: D64.9 - Anemia, unspecified Status: Acute (6) Endocarditis ICD Codes: I38 - Endocarditis, valve unspecified Status: Acute Problem Qualifiers (1) Anemia: Qualified Codes: D64.9 - Anemia, unspecified (2) Endocarditis: Qualified Codes: I33.0 - Acute and subacute infective endocarditis Janak Alonso MD Jul 27, 2017 09:25
--- NOTE | 2017-07-27 09:42 | HHI.FPPN ---
Subjective Remarks Patient states she is doing ok. No changes overnight, vitals stable. Looking forward to going home soon. (Rosamaria Sanford MD R1) Objective Vitals Vital Signs Date Time Temp Pulse Resp B/P (MAP) Pulse Ox O2 Delivery O2 Flow Rate FiO2 07/27/17 08:00 99.6 108 17 106/60 (75) 91 07/27/17 04:00 97.9 120 20 118/68 (85) 95 07/27/17 03:58 115 07/27/17 00:00 97.7 94 20 112/59 (76) 98 07/26/17 23:46 91 07/26/17 21:22 88 07/26/17 21:19 Nasal Cannula 2.00 07/26/17 20:23 96 Nasal Cannula 2.00 07/26/17 20:00 97.5 97 20 117/75 (89) 96 07/26/17 16:00 97.5 96 16 101/60 (74) 96 07/26/17 12:26 94 Nasal Cannula 2.00 07/26/17 12:00 97.8 96 16 112/62 (79) 96 I/O 07/26/17 07/26/17 07/26/17 07/27/17 07/27/17 07/27/17 07:00 15:00 23:00 07:00 15:00 23:00 Intake Total 520 ml 500 ml 1000 ml 1250 ml Output Total 1000 ml 2000 ml 1000 ml Balance -480 ml 500 ml -1000 ml 250 ml Intake Oral 420 ml 800 ml 1050 ml IV Total 100 ml 500 ml 200 ml 200 ml Output Urine Total 1000 ml 2000 ml 1000 ml # Voids 12 5 6 # Bowel Movements 2 2 1 (Rosamaria Sanford MD R1) Result Diagram: 07/27/17 0644 07/27/17 0644 Objective Remarks GENERAL: This is an ill appearing female pt. Generally edematous. SKIN: On the medial aspect of the left lower leg there is a 1x1 cm scabbed, healing lesion w/ a blackened scab. No bleeding present. Multiple splinter hemorrhages/janeway lesions on bilateral fingers and toes. Left thumb tip has a 1.5x1mm area of redness and skin sloughing. No drainage or bleeding. At tip of left toe, appearance of a stable, desquamation of skin and healing lesion noted. EYES: Extraocular motions intact. ENT: Moist mucous membranes. CARDIOVASCULAR: Tachycardic rate with normal rhythm. Grade 3/6 systolic murmur. RESPIRATORY: Decreased inspiratory air flow bilaterally, occasional crackles heard. No accessory muscle use. 2L NC in place. Occasional cough productive of bloody sputum. GASTROINTESTINAL: Abdomen non-tender. MUSCULOSKELETAL: Edematous (pitting) extremities. NEUROLOGICAL: Able to maintain conversation. Normal speech. 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 Poor echocardiogram, severe tricuspid insufficiency, pulmonary hypertension and patent foramen ovale were noted. Unfortunately, the PFO was determined to be the route of widespread infection to the lungs, brain, hip, multiple skin sites, and high likelihood of continuing to spread to other areas of the body. Due to the progressive nature of the disease spread, palliative was consulted, who spoke w/patient and her family. Current consensus is to continue IV antibiotics for the treatment course unless a major setback in her condition arises; will then transition to comfort measures. Discharge Planning Discharge care plan will require IV antibiotics x 8 weeks for aggressive therapy per ID recs. PICC line placement has been ordered. Patient may go home today w/ home health while receiving IV antibiotics and care/monitoring for her multiple complications. (Rosamaria Sanford MD R1) Attending Attestation Patient seen and examined. Case reviewed and discussed with the resident team. Agree with plan of care as discussed with me and documented in the resident note. Patient has been doing much better, her blood cultures have remained negative and her clinical picture has stabilized. At this time she could be managed as an outpatient. Patients clinic course will likely be protracted and will need IV antibiotics via picc line at home. She is to go home with grandparents and HH support. (Tessie Siegel MD) Problem List: (1) Endocarditis of tricuspid valve ICD Codes: I36.8 - Other nonrheumatic tricuspid valve disorders Status: Acute Plan: Patient with history of endocarditis and septic pulmonary emboli 11/2016 and 12/2016. Symptoms started after relapse with IV heroin. HIV, hepatitis panel negative Tricuspid endocarditis with septic pulmonary emboli, left thigh muscle abscess, right hip joint effusion, brain abscess, L5-S1 discitis, pyelonephritis/renal infarction This is a terminal condition with life expectancy no more than 6 months. S/p right hip aspiration draining 4ml of yellow purulent appearing fluid on by Dr. Gilliland Phlegmon embedded in muscle associated w/r. hip joint Labial phlegmon 07/12 Sputum culture growing harrington sensitive staph aureus 07/10 urine culture growing 50-100,000 CFU/mL mixed gram positive brittni 07/10 CTA: widespread patchy cavitary pneumonia of both lung on the basis of septic emboli 07/11 Wound culture growing harrington sensitive staph aureus and beta strep Group F 07/11 Echo shows vegetation on the tricuspid valve, pulmonary valve regurg 07/10 Blood cultures staph aureus x 4 07/12 Blood cultures staph aureus and viridans strep x 2 07/14 Blood cultures staph aureus 07/15 Blood cultures no growth 07/15 KALIN tricuspid vegetation, severe tricuspid regurg, small PFO with right to left shunt (potential source for systemic emboli) 07/16 Synovial fluid culture staph aureus 07/19 VQ scan: septic emboli 07/19 Blood cultures no growth Plan: - CM consulted - appreciate assistance in discharge planning - Palliative care consulted- appreciate assistance and recommendations - ID consulted, appreciate assistance * s/p Oxacillin 2g IV Q4H (started 07/12-07/24). * Continue IV Ancef 2 g q8H (better for fluid overloaded patient) (07/24 - ) * PICC line for continued outpatient treatment For pain: - Oxycodone 5 mg Q4H PRN pain 3-5 - Oxycodone 10 mg Q4H PRN for pain 6-10 - Morphine 2 mg Q4H IV for pain PRN breakthrough Imagin/19 Hip MRI small moderate right hip joint effusion and small muscular abscess in the proximal left thigh adjacent to the left femoral head * CTA: No PE. Widespread patchy cavitary pneumonia both lungs and probable on the basis of septic emboli. Nonspecific hepatosplenomegaly. Probable tricuspid regurgitation. * 07/10 CXR: Patchy cavitary pneumonia, fairly stable on the right but substantially worse on the left * Lower extremity ultrasound: Negative for venous thrombosis * KALIN 07/15 confirms right-sided endocarditis with severe tricuspid regurgitation (w/mobile vegetation on tricuspid valve), moderate to severe pulmonary hypertension, and no other valvular vegetation.A patent foramen ovale is present with a [id number] shunt demonstrated by color flow Doppler interrogation. * 07/16 Brain MRI: 2 areas of central ring enhancement * 07/16 Spine MRI: discitis involving L5-S1, possible right renal infarction versus focal pyelonephritis (2) Anasarca ICD Codes: R60.1 - Generalized edema Status: Acute Plan: Improving with IV lasix and albumin Nephrology consulted, appreciate recs Spoke w/nephrology on 07/24, started: s/p albumin IV 25 mg BID for 2 days (-) Con't Lasix 80 mg IV, transition to 40 mg PO BID at discharge Continue to monitor I/O's, daily weights, renal function (3) Lesion of thumb ICD Codes: L98.9 - Disorder of the skin and subcutaneous tissue, unspecified Status: Acute Plan: Patient has multiple Janeway lesions at the hands and feet Keep exposed to air, apply Bactroban ointment TID Will continue to monitor (4) Acute renal failure ICD Codes: N17.9 - Acute kidney failure, unspecified Status: Acute Plan: consulted Nephrology, appreciate recommendations BUN/Cr improved since admission, GFR stable (5) Rash and nonspecific skin eruption ICD Codes: R21 - Rash and other nonspecific skin eruption Status: Resolved Plan: Possible contact dermatitis versus reaction to edema Improvement today Continue hydrocortisone 0.5% cream to apply to rash on hands and lower legs as needed (6) Anemia ICD Codes: D64.9 - Anemia, unspecified Status: Acute Plan: Baseline hemoglobin around 13.1 per chart review S/p 2 units transfusion on 07/16, 1 unit on 07/18, 07/19 Hgb 8.6 today, stable Transfuse as needed (Hgb less than or equal to 7) (7) Cavitary pneumonia ICD Codes: J18.9 - Pneumonia, unspecified organism; J98.4 - Other disorders of lung Status: Acute (8) Muscle abscess ICD Codes: M62.89 - Other specified disorders of muscle Status: Acute (9) Labial swelling ICD Codes: N94.89 - Other specified conditions associated with female genital organs and menstrual cycle Status: Acute Plan: Unilateral, affecting the left labia Soft tissue US shows phlegmon (10) IVDU (intravenous drug user) ICD Codes: F19.90 - Other psychoactive substance use, unspecified, uncomplicated Status: Chronic Plan: clonidine 0.1 mg every 6 hours when necessary for agitation (11) Nutrition, metabolism, and development symptoms ICD Codes: R63.8 - Other symptoms and signs concerning food and fluid intake Status: Acute Plan: Diet: Regular Electrolytes: continue to monitor and replete PRN, check BMP daily Fluids: PO DVT PPX: SCDs, chemical anticoagulation contraindicated in the setting of endocarditis. Continue to encourage ambulation around floor. (Rosamaria Sanford MD R1) Problem Qualifiers (1) Acute renal failure: Qualified Codes: N17.9 - Acute kidney failure, unspecified (2) Anemia: Qualified Codes: D64.9 - Anemia, unspecified Rosamaria Sanford MD R1 Jul 27, 2017 09:42 Tessie Siegel MD Jul 27, 2017 14:04
[2017-07-27] MEDS: CALCIUM CARBONATE 1.25 GM (CA 500 MG) TAB PO SCH (09:51)
[2017-07-27] MEDS: clonazePAM 1 MG TAB PO SCH ×2 (09:51→20:22)
[2017-07-27] MEDS: FUROSEMIDE 100 MG/10 ML VIAL IV PUSH SCH ×2 (09:52→17:04)
[2017-07-27] MEDS: SODIUM CHLORIDE 0.9% FLUSH 10 ML FLUSH IV FLUSH SCH ×2 (09:53→20:22)
[2017-07-27] MEDS ORDERED: CALC500 PO (10:34)
[2017-07-27] MEDS ORDERED: NEBUKIT5 (10:34)
--- NOTE | 2017-07-27 13:39 | HHI.DS ---
Discharge Summary Admission Date Jul 10, 2017 at 20:19 Admitting Diagnosis CAVITARY PNA, SEPSIS, ARF, HYPONATREMIA (1) Endocarditis of tricuspid valve Plan: Patient with history of endocarditis and septic pulmonary emboli 11/2016 and 12/2016. Symptoms started after relapse with IV heroin. HIV, hepatitis panel negative Tricuspid endocarditis with septic pulmonary emboli, left thigh muscle abscess, right hip joint effusion, brain abscess, L5-S1 discitis, pyelonephritis/renal infarction This is a terminal condition with life expectancy no more than 6 months. S/p right hip aspiration draining 4ml of yellow purulent appearing fluid on by Dr. Gilliland Phlegmon embedded in muscle associated w/r. hip joint Labial phlegmon 07/12 Sputum culture growing harrington sensitive staph aureus 07/10 urine culture growing 50-100,000 CFU/mL mixed gram positive brittni 07/10 CTA: widespread patchy cavitary pneumonia of both lung on the basis of septic emboli 07/11 Wound culture growing harrintgon sensitive staph aureus and beta strep Group F 07/11 Echo shows vegetation on the tricuspid valve, pulmonary valve regurg 07/10 Blood cultures staph aureus x 4 07/12 Blood cultures staph aureus and viridans strep x 2 07/14 Blood cultures staph aureus 07/15 Blood cultures no growth 07/15 KALIN tricuspid vegetation, severe tricuspid regurg, small PFO with right to left shunt (potential source for systemic emboli) 07/16 Synovial fluid culture staph aureus 07/19 VQ scan: septic emboli 07/19 Blood cultures no growth Plan: - CM consulted - appreciate assistance in discharge planning - Palliative care consulted- appreciate assistance and recommendations - ID consulted, appreciate assistance * s/p Oxacillin 2g IV Q4H (started 07/12-07/24). * Continue IV Ancef 2 g q8H (better for fluid overloaded patient) (07/24 - ) * PICC line for continued outpatient treatment For pain: - Oxycodone 5 mg Q4H PRN pain 3-5 - Oxycodone 10 mg Q4H PRN for pain 6-10 - Morphine 2 mg Q4H IV for pain PRN breakthrough Imagin/19 Hip MRI small moderate right hip joint effusion and small muscular abscess in the proximal left thigh adjacent to the left femoral head * CTA: No PE. Widespread patchy cavitary pneumonia both lungs and probable on the basis of septic emboli. Nonspecific hepatosplenomegaly. Probable tricuspid regurgitation. * 07/10 CXR: Patchy cavitary pneumonia, fairly stable on the right but substantially worse on the left * Lower extremity ultrasound: Negative for venous thrombosis * KALIN 07/15 confirms right-sided endocarditis with severe tricuspid regurgitation (w/mobile vegetation on tricuspid valve), moderate to severe pulmonary hypertension, and no other valvular vegetation.A patent foramen ovale is present with a [id number]-uk-lkrh shunt demonstrated by color flow Doppler interrogation. * 07/16 Brain MRI: 2 areas of central ring enhancement * 07/16 Spine MRI: discitis involving L5-S1, possible right renal infarction versus focal pyelonephritis ICD Codes: I36.8 - Other nonrheumatic tricuspid valve disorders Status: Acute (2) Anasarca Plan: Improving with IV lasix and albumin Nephrology consulted, appreciate recclark Spoke w/nephrology on 07/24, started: s/p albumin IV 25 mg BID for 2 days (-) Con't Lasix 80 mg IV, transition to 40 mg PO BID at discharge Continue to monitor I/O's, daily weights, renal function ICD Codes: R60.1 - Generalized edema Status: Acute (3) Lesion of thumb Plan: Patient has multiple Janeway lesions at the hands and feet Keep exposed to air, apply Bactroban ointment TID Will continue to monitor ICD Codes: L98.9 - Disorder of the skin and subcutaneous tissue, unspecified Status: Acute (4) Acute renal failure Plan: consulted Nephrology, appreciate recommendations BUN/Cr improved since admission, GFR stable ICD Codes: N17.9 - Acute kidney failure, unspecified Status: Acute (5) Rash and nonspecific skin eruption Plan: Possible contact dermatitis versus reaction to edema Improvement today Continue hydrocortisone 0.5% cream to apply to rash on hands and lower legs as needed ICD Codes: R21 - Rash and other nonspecific skin eruption Status: Resolved (6) Anemia Plan: Baseline hemoglobin around 13.1 per chart review S/p 2 units transfusion on 07/16, 1 unit on 07/18, 07/19 Hgb 8.6 today, stable Transfuse as needed (Hgb less than or equal to 7) ICD Codes: D64.9 - Anemia, unspecified Status: Acute (7) Cavitary pneumonia ICD Codes: J18.9 - Pneumonia, unspecified organism; J98.4 - Other disorders of lung Status: Acute (8) Muscle abscess ICD Codes: M62.89 - Other specified disorders of muscle Status: Acute (9) Labial swelling Plan: Unilateral, affecting the left labia Soft tissue US shows phlegmon ICD Codes: N94.89 - Other specified conditions associated with female genital organs and menstrual cycle Status: Acute (10) IVDU (intravenous drug user) Plan: clonidine 0.1 mg every 6 hours when necessary for agitation ICD Codes: F19.90 - Other psychoactive substance use, unspecified, uncomplicated Status: Chronic (11) Nutrition, metabolism, and development symptoms Plan: Diet: Regular Electrolytes: continue to monitor and replete PRN, check BMP daily Fluids: PO DVT PPX: SCDs, chemical anticoagulation contraindicated in the setting of endocarditis. Continue to encourage ambulation around floor. ICD Codes: R63.8 - Other symptoms and signs concerning food and fluid intake Status: Acute Consultants ID, Nephrology, Cardiology, Orthopedics, PT, CM Brief History Ms Zee is a 26-year-old female with history of endocarditis and IV drug use. Presented from the [facility] clinic due to worsening generalized body aches, fatigue, cough, painful fingers and toes. Symptoms started about 1 week ago and have progressively worsened. Patient reports that she was previously clean from IV drug use for 3 years but had relapse about 1 week ago. Used IV heroin but reports using a clean needle. She is unsure if she used the same needle on herself but states it was not used by others. Has previously been tested for HIV in the past but has not been diagnosed with that. Reports only one prior episode of endocarditis 12/2016 but upon chart review it appears she may have had a prior episode of endocarditis 11/2016. She was admitted and blood cultures were drawn with 4/4 positive now for gram positive cocci in chains and pairs. She is very ill with multi organ systems effected. She is breathing with an increased rate but not using accessory muscles at this time. She speaks but takes a breath after about 2 words. Her tests of liver and kidneys are elevated. ID and Nephrology are consulted. CBC/BMP: 07/27/17 0644 07/27/17 0644 Significant Findings Laboratory Tests Test 07/25/17 05:29 07/26/17 12:39 07/27/17 06:44 Red Blood Count 2.57 MIL/MM3 (4.00-5.30) 2.81 MIL/MM3 (4.00-5.30) 2.93 MIL/MM3 (4.00-5.30) Hemoglobin 7.6 GM/DL (11.6-15.3) 8.2 GM/DL (11.6-15.3) 8.6 GM/DL (11.6-15.3) Hematocrit 21.7 % (35.0-46.0) 24.1 % (35.0-46.0) 25.3 % (35.0-46.0) Red Cell Distribution Width 17.3 % (11.6-17.2) Neutrophils (%) (Auto) 73.4 % (16.0-70.0) Monocytes (%) (Auto) 9.7 % (0.0-8.0) Blood Urea Nitrogen 19 MG/DL (7-18) Creatinine 1.56 MG/DL (0.50-1.00) 1.26 MG/DL (0.50-1.00) 1.42 MG/DL (0.50-1.00) Calcium Level 7.7 MG/DL (8.5-10.1) 8.4 MG/DL (8.5-10.1) 8.3 MG/DL (8.5-10.1) Sodium Level 132 MEQ/L (136-145) 133 MEQ/L (136-145) 133 MEQ/L (136-145) Potassium Level 3.1 MEQ/L (3.5-5.1) 3.0 MEQ/L (3.5-5.1) 3.4 MEQ/L (3.5-5.1) Chloride Level 92 MEQ/L (98-107) 90 MEQ/L (98-107) 90 MEQ/L (98-107) Estimat Glomerular Filtration Rate 40 ML/MIN (>89) 51 ML/MIN (>89) 44 ML/MIN (>89) Mean Platelet Volume 6.9 FL (7.0-11.0) Albumin 2.0 GM/DL (3.4-5.0) 2.1 GM/DL (3.4-5.0) Carbon Dioxide Level 34.6 MEQ/L (21.0-32.0) 35.8 MEQ/L (21.0-32.0) Protein Corrected Calcium 8.2 MG/DL (8.5-10.1) Random Glucose 108 MG/DL (74-106) PE at Discharge GENERAL: This is an ill appearing female pt. Generally edematous. SKIN: On the medial aspect of the left lower leg there is a 1x1 cm scabbed, healing lesion w/ a blackened scab. No bleeding present. Multiple splinter hemorrhages/janeway lesions on bilateral fingers and toes. Left thumb tip has a 1.5x1mm area of redness and skin sloughing. No drainage or bleeding. At tip of left toe, appearance of a stable, desquamation of skin and healing lesion noted. EYES: Extraocular motions intact. ENT: Moist mucous membranes. CARDIOVASCULAR: Tachycardic rate with normal rhythm. Grade 3/6 systolic murmur. RESPIRATORY: Decreased inspiratory air flow bilaterally, occasional crackles heard. No accessory muscle use. 2L NC in place. Occasional cough productive of bloody sputum. GASTROINTESTINAL: Abdomen non-tender. MUSCULOSKELETAL: Edematous (pitting) extremities. NEUROLOGICAL: Able to maintain conversation. Normal speech. Hospital Course Patient is a 26 yo female with PMH significant for endocarditis, septic pulmonary emboli, and IV drug use admitted for severe sepsis secondary to endocarditis of tricuspid valve. Poor echocardiogram, severe tricuspid insufficiency, pulmonary hypertension and patent foramen ovale were noted. Unfortunately, the PFO was determined to be the route of widespread infection to the lungs, brain, hip, multiple skin sites, and high likelihood of continuing to spread to other areas of the body. She was fluid overloaded with significant edema, which was treated w/IV lasix. Right hip joint was aspirated by IR. ID, Nephrology, orthopedics, and cardiology were consulted. Surgery was deemed to be contraindicated due to patient's high risk for bleed while critically ill. Serial blood cultures were monitored, last blood cultures were negative for 3 days. Patient gained significant amount of weight since admission (50lbs) due to fluid retention. Per nephrology recommendations, was given an infusion of albumin for 2 days and an increased dose of IV lasix. Improvement in edema, fluid balance, and weight loss of 5 kg was observed over several days. Due to the progressive nature of the disease spread, palliative was consulted, who spoke w/patient and her family. Current consensus is to continue IV antibiotics for the treatment course unless a major setback in her condition arises; will then transition to comfort measures. It was decided that since aggressive treatment can be continued at home, patient could be discharged to complete course (with monitoring by ID). Upon stabilization of symptoms, negative blood cultures, and adequate control of diuresis, patient was cleared for PICC line placement and d/c to her grandparents' home w/home health and wheeled walker (per PT recommendations). May also continue albuterol nebulizer for shortness of breath related to cavitary pneumonia. Patient may continue to receive pain medication for her symptoms but will need to follow-up w/her PCP, who may adjust these as needed. Pt Condition on Discharge: Stable Discharge Disposition: Disch w/ Home Health Serv Discharge Instructions DIET: Follow Instructions for: As Tolerated, No Restrictions Activities you can perform: Regular-No Restrictions Rosamaria Sanford MD R1 Jul 27, 2017 13:39
[2017-07-27] MEDS ORDERED: medroxyPROGESTERone ACETATE SUSP 150 MG/ML SYRINGE IM ONE (16:00)
[2017-07-27] MEDS ORDERED: CLON1TAB PO (16:36)
[2017-07-27] MEDS ORDERED: ALBU1.25 NEB (16:36)
[2017-07-27] MEDS ORDERED: OXYC-392 PO (16:36)
[2017-07-28] VITALS (8 sets, daily range): BP systolic 102–114; BP diastolic 57–69; PULSE 91–102; RESP 16–18; TEMP 98–100.2; O2SAT 92–100
[2017-07-28] MEDS: BENZONATATE 100 MG CAP PO PRN ×3 (00:47→15:38)
[2017-07-28] MEDS: guaiFENesin SOLUTION 200 MG/10 ML CUP PO PRN ×3 (03:13→15:07)
[2017-07-28] MEDS: RESP: ALBUTEROL 1.25 MG/3 ML NEB (PRN) NEB (03:30)
[2017-07-28] MEDS: CEFAZOLIN INJ 2,000 MG in SODIUM CHLORIDE 0.9% INJ 100 ML IV SCH ×2 (05:21→15:09)
[2017-07-28] MEDS: SODIUM CHLORIDE 0.9% FLUSH 10 ML FLUSH IV FLUSH PRN (05:24)
[2017-07-28] MEDS: LORazepam 1 MG TAB PO PRN (05:24)
[2017-07-28] MEDS: MUPIROCIN 2% OINT 22 GM TUBE TOPICAL SCH ×2 (06:01→15:10)
[2017-07-28] MEDS: MENTHOL LOZENGE BUCCAL PRN (07:13)
[2017-07-28] MEDS: clonazePAM 1 MG TAB PO SCH (09:51)
[2017-07-28] MEDS: CALCIUM CARBONATE 1.25 GM (CA 500 MG) TAB PO SCH (09:52)
[2017-07-28] MEDS: FUROSEMIDE 100 MG/10 ML VIAL IV PUSH SCH (09:52)
--- NOTE | 2017-07-28 10:35 | HHI.FPPN ---
Subjective Remarks Feeling ok, ready to go home today. Vitals stable overnight. Oxygen 94-100% on 4 L NC O2. (Rosamaria Sanford MD R1) Objective Vitals Vital Signs Date Time Temp Pulse Resp B/P (MAP) Pulse Ox O2 Delivery O2 Flow Rate FiO2 07/28/17 08:00 98.0 99 17 104/59 (74) 92 07/28/17 04:12 98.5 101 18 114/69 (84) 96 07/28/17 03:44 93 07/28/17 03:38 100 Nasal Cannula 4.00 07/28/17 00:12 98.3 96 17 102/59 (73) 94 07/28/17 00:03 91 07/27/17 20:15 94 Nasal Cannula 2.00 07/27/17 20:04 96 07/27/17 20:00 97.5 104 17 121/60 (80) 94 07/27/17 19:42 103 07/27/17 16:00 99.1 93 17 100/63 (75) 97 07/27/17 12:00 98.1 98 17 106/58 (74) 94 I/O 07/27/17 07/27/17 07/27/17 07/28/17 07/28/17 07/28/17 07:00 15:00 23:00 07:00 15:00 23:00 Intake Total 1250 ml 1100 ml 880 ml Output Total 1000 ml Balance 250 ml 1100 ml 880 ml Intake Oral 1050 ml 1000 ml 780 ml IV Total 200 ml 100 ml 100 ml Output Urine Total 1000 ml # Voids 6 4 5 # Bowel Movements 1 2 0 (Rosamaria Sanford MD R1) Result Diagram: 07/27/17 0644 07/27/17 0644 Objective Remarks GENERAL: This is an ill appearing female pt. Generally edematous. SKIN: Stable EYES: Extraocular motions intact. ENT: Moist mucous membranes. CARDIOVASCULAR: Tachycardic rate with normal rhythm. Grade 3/6 systolic murmur. RESPIRATORY: Decreased inspiratory air flow bilaterally. No accessory muscle use. 2L NC in place. Occasional cough productive of bloody sputum. GASTROINTESTINAL: Abdomen non-tender. MUSCULOSKELETAL: Edematous (pitting) extremities. This is improved NEUROLOGICAL: Able to maintain conversation. Normal speech. 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 Poor echocardiogram, severe tricuspid insufficiency, pulmonary hypertension and patent foramen ovale were noted. Unfortunately, the PFO was determined to be the route of widespread infection to the lungs, brain, hip, multiple skin sites, and high likelihood of continuing to spread to other areas of the body. Due to the progressive nature of the disease spread, palliative was consulted, who spoke w/patient and her family. Current consensus is to continue IV antibiotics for the treatment course unless a major setback in her condition arises; will then transition to comfort measures. Discharge Planning Discharge care plan will require IV antibiotics x 8 weeks for aggressive therapy per ID recs in addition to oral lasix and pain control. PICC line placement has been ordered. Patient may go home today w/ home health while receiving IV antibiotics and care/monitoring for her multiple complications. D/C pending oxygen walk test. May require home O2, will order for discharge if required. (Rosamaria Sanford MD R1) Attending Attestation Patient seen and examined. Case reviewed and discussed with the resident team. Agree with plan of care as discussed with me and documented in the resident note. Patient clinically stable --- home today with or without oxygen based on the walk test. Case management coordinating. CLose fu with ID and PCP (Tessie Siegel MD) Problem List: (1) Endocarditis of tricuspid valve ICD Codes: I36.8 - Other nonrheumatic tricuspid valve disorders Status: Acute Plan: Patient with history of endocarditis and septic pulmonary emboli 11/2016 and 12/2016. Symptoms started after relapse with IV heroin. HIV, hepatitis panel negative Tricuspid endocarditis with septic pulmonary emboli, left thigh muscle abscess, right hip joint effusion, brain abscess, L5-S1 discitis, pyelonephritis/renal infarction This is a terminal condition with life expectancy no more than 6 months. S/p right hip aspiration draining 4ml of yellow purulent appearing fluid on by Dr. Gilliland Phlegmon embedded in muscle associated w/r. hip joint Labial phlegmon 07/12 Sputum culture growing [place] sensitive staph aureus 07/10 urine culture growing 50-100,000 CFU/mL mixed gram positive brittni 07/10 CTA: widespread patchy cavitary pneumonia of both lung on the basis of septic emboli 07/11 Wound culture growing harrington sensitive staph aureus and beta strep Group F 07/11 Echo shows vegetation on the tricuspid valve, pulmonary valve regurg 07/10 Blood cultures staph aureus x 4 07/12 Blood cultures staph aureus and viridans strep x 2 07/14 Blood cultures staph aureus 07/15 Blood cultures no growth 07/15 KALIN tricuspid vegetation, severe tricuspid regurg, small PFO with right to left shunt (potential source for systemic emboli) 07/16 Synovial fluid culture staph aureus 07/19 VQ scan: septic emboli 07/19 Blood cultures no growth Plan: - CM consulted - appreciate assistance in discharge planning - Palliative care consulted- appreciate assistance and recommendations - ID consulted, appreciate assistance * s/p Oxacillin 2g IV Q4H (started 07/12-07/24). * Continue IV Ancef 2 g q8H (better for fluid overloaded patient) (07/24 - ) * PICC line placed for continued outpatient treatment For pain: - Oxycodone 5 mg Q4H PRN pain 3-5 - Oxycodone 10 mg Q4H PRN for pain 6-10 - Morphine 2 mg Q4H IV for pain PRN breakthrough Imagin/19 Hip MRI small moderate right hip joint effusion and small muscular abscess in the proximal left thigh adjacent to the left femoral head * CTA: No PE. Widespread patchy cavitary pneumonia both lungs and probable on the basis of septic emboli. Nonspecific hepatosplenomegaly. Probable tricuspid regurgitation. * 07/10 CXR: Patchy cavitary pneumonia, fairly stable on the right but substantially worse on the left * Lower extremity ultrasound: Negative for venous thrombosis * KALIN 07/15 confirms right-sided endocarditis with severe tricuspid regurgitation (w/mobile vegetation on tricuspid valve), moderate to severe pulmonary hypertension, and no other valvular vegetation.A patent foramen ovale is present with a [id number] shunt demonstrated by color flow Doppler interrogation. * 07/16 Brain MRI: 2 areas of central ring enhancement * 07/16 Spine MRI: discitis involving L5-S1, possible right renal infarction versus focal pyelonephritis (2) Anasarca ICD Codes: R60.1 - Generalized edema Status: Acute Plan: Improving with IV lasix and albumin Nephrology consulted, appreciate recs Spoke w/nephrology on 07/24, started: s/p albumin IV 25 mg BID for 2 days (-29) Con't Lasix 80 mg IV, transition to 40 mg PO BID at discharge Continue to monitor I/O's, daily weights, renal function (3) Lesion of thumb ICD Codes: L98.9 - Disorder of the skin and subcutaneous tissue, unspecified Status: Acute Plan: Patient has multiple Jan[place]ay lesions at the hands and feet Keep exposed to air, apply Bactroban ointment TID Will continue to monitor (4) Acute renal failure ICD Codes: N17.9 - Acute kidney failure, unspecified Status: Acute Plan: consulted Nephrology, appreciate recommendations (5) Rash and nonspecific skin eruption ICD Codes: R21 - Rash and other nonspecific skin eruption Status: Resolved Plan: Possible contact dermatitis versus reaction to edema Resolved Continue hydrocortisone 0.5% cream to apply to rash on hands and lower legs PRN (6) Anemia ICD Codes: D64.9 - Anemia, unspecified Status: Acute Plan: Baseline hemoglobin around 13.1 per chart review S/p 2 units transfusion on 07/16, 1 unit on 07/18, 07/19 Hgb has been stable Transfuse as needed (Hgb less than or equal to 7) (7) Cavitary pneumonia ICD Codes: J18.9 - Pneumonia, unspecified organism; J98.4 - Other disorders of lung Status: Acute Plan: Initially satting 91% on room air at the start of this admission. Has been on 2L NC O2 for comfort most of this hospitalization. Increased to 4L NC O2 yesterday, has been satting adequately on 2L however. May require increased oxygen w/ambulating. Has been receiving albuterol neb Q6H, noted improvement in breathing w/these treatments To undergo O2 walk test today. (8) Muscle abscess ICD Codes: M62.89 - Other specified disorders of muscle Status: Acute (9) Labial swelling ICD Codes: N94.89 - Other specified conditions associated with female genital organs and menstrual cycle Status: Acute Plan: Soft tissue US shows phlegmon (10) IVDU (intravenous drug user) ICD Codes: F19.90 - Other psychoactive substance use, unspecified, uncomplicated Status: Chronic Plan: clonidine 0.1 mg every 6 hours when necessary for agitation (11) Nutrition, metabolism, and development symptoms ICD Codes: R63.8 - Other symptoms and signs concerning food and fluid intake Status: Acute Plan: Diet: Regular Electrolytes: continue to monitor and replete PRN, check BMP daily Fluids: PO DVT PPX: SCDs, chemical anticoagulation contraindicated in the setting of endocarditis. Continue to encourage ambulation around floor. (Rosamaria Sanford MD R1) Problem Qualifiers (1) Acute renal failure: Qualified Codes: N17.9 - Acute kidney failure, unspecified (2) Anemia: Qualified Codes: D64.9 - Anemia, unspecified Rosamaria Sanford MD R1 Jul 28, 2017 10:35 Tessie Siegel MD Jul 28, 2017 13:26
[2017-07-28] MEDS ORDERED: OXYGENTANK NAS.CANULA (11:50)
[2017-07-28] MEDS: ACETAMINOPHEN 325 MG TAB PO PRN (11:56)
--- NOTE | 2017-07-28 13:02 | HHI.NPPN ---
Subjective Renal Failure: Acute History of Present Illness 26-year-old female with history of endocarditis and IV drug use and anxiety. Presented here today from the [facility] clinic due to worsening generalized body aches, fatigue, cough, painful fingers and toes. Symptoms started about 1 week ago and have progressively worsened. Patient reports that she was previously clean rom IV drug use for 3 years but had relapse about 1 week ago. Used IV heroin. Nephrology is consulted for acute kidney injury with creatinine of 3.97 and GFR of 14 ml/min. Additional Remarks Patient is alert, no SOB, started eating better, not in distress. Review of Systems General Constitutional: Fatigue Respiratory Lungs: SOB Cardiovascular Cardiac: Edema, FAULKNER Gastrointestinal GI Remarks Denies any Abdominal pain Genitourinary Remarks Denies any dysuria Objective Data Data Vital Signs Date Time Temp Pulse Resp B/P (MAP) Pulse Ox O2 Delivery O2 Flow Rate FiO2 07/28/17 11:01 3.00 07/28/17 08:00 98.0 99 17 104/59 (74) 92 07/28/17 04:12 98.5 101 18 114/69 (84) 96 07/28/17 03:44 93 07/28/17 03:38 100 Nasal Cannula 4.00 07/28/17 00:12 98.3 96 17 102/59 (73) 94 07/28/17 00:03 91 07/27/17 20:15 94 Nasal Cannula 2.00 07/27/17 20:04 96 07/27/17 20:00 97.5 104 17 121/60 (80) 94 07/27/17 19:42 103 07/27/17 16:00 99.1 93 17 100/63 (75) 97 -: 07/27/17 0644 07/27/17 0644 Physical Exam General Appearance: No Acute Distress, Comfortable Eyes Eye Exam: Pupils Equal Throat Throat Exam: Oral Mucosa [place] & Moist Neck Neck Exam: Neck Supple Pulmonary Resp Exam: Breath Sounds Equal, No Distress, Decreased Bases Cardiology CV Exam: Regular, Normal Sinus Rhythm Gastrointestinal/Abdomen GI Exam: Soft, Non-Tender, Bowel Sounds Present Extremeties Extremities Exam: Moderate Edema Neurologic Neuro Exam: Alert, Awake Psychiatric Psych Exam: Appropriate Responses Assessment/Plan Problem List: (1) ENRICO (acute kidney injury) ICD Codes: N17.9 - Acute kidney failure, unspecified Plan: Renal US. No acute findings. Mildly increased renal echogenicity characteristic of medical renal disease. ENRICO most likely pre renal Creatinine stable. Baseline in 01/13 was creatinine of less than 1 Serology negative Creatinine stable with good UOP Plan Daily weights Hypokalemia replacement given. Hypocalcemia replacement increased Fluid restriction 1500ml Continue IV lasix Continue antibiotics and follow the urine out put and BMP. Creatinine was 1.4 yesterday, Continue diuresis, edema is improving. Now for discharge home, I can follow as out patient. The Grand father will call for admitted. 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 Improved now (4) Thrombocytopenia ICD Codes: D69.6 - Thrombocytopenia, unspecified Plan: improved (5) Anemia ICD Codes: D64.9 - Anemia, unspecified Status: Acute (6) Endocarditis ICD Codes: I38 - Endocarditis, valve unspecified Status: Acute Problem Qualifiers (1) Anemia: Qualified Codes: D64.9 - Anemia, unspecified (2) Endocarditis: Qualified Codes: I33.0 - Acute and subacute infective endocarditis Janak Alonso MD Jul 28, 2017 13:02
[2017-07-28] MEDS: SODIUM CHLORIDE 0.9% FLUSH 10 ML FLUSH IV FLUSH SCH (15:41)
--- NOTE | 2017-07-28 19:53 | HHI.DS ---
Discharge Summary Admission Date Jul 10, 2017 at 20:19 Discharge Date: Jul 28, 2017 Admitting Diagnosis CAVITARY PNA, SEPSIS, ARF, HYPONATREMIA (1) Endocarditis of tricuspid valve Plan: Tricuspid endocarditis with septic pulmonary emboli, left thigh muscle abscess (phlegmon), right hip joint effusion, brain abscess, L5-S1 discitis, pyelonephritis/renal infarction Patient with history of endocarditis and septic pulmonary emboli 11/2016 and 2016. Symptoms started after relapse with IV heroin. HIV, hepatitis panel negative This is a terminal condition with life expectancy no more than 6 months Cultures: * 07/12 Sputum culture growing harrington sensitive staph aureus * 07/10 urine culture growing 50-100,000 CFU/mL mixed gram positive brittni * 07/10 CTA: widespread patchy cavitary pneumonia of both lung on the basis of septic emboli * 07/11 Wound culture growing harrington sensitive staph aureus and beta strep Group F * 07/11 Echo shows vegetation on the tricuspid valve, pulmonary valve regurg * 07/10 Blood cultures staph aureus x 4 * 07/12 Blood cultures staph aureus and viridans strep x 2 * 07/14 Blood cultures staph aureus * 07/15 Blood cultures no growth * 07/15 KALIN tricuspid vegetation, severe tricuspid regurg, small PFO with right to left shunt (potential source for systemic emboli) * 07/16 Synovial fluid culture staph aureus * 07/19 VQ scan: septic emboli * 07/19 Blood cultures no growth Imagin/19 Hip MRI small moderate right hip joint effusion and small muscular abscess in the proximal left thigh adjacent to the left femoral head * CTA: No PE. Widespread patchy cavitary pneumonia both lungs and probable on the basis of septic emboli. Nonspecific hepatosplenomegaly. Probable tricuspid regurgitation. * 07/10 CXR: Patchy cavitary pneumonia, fairly stable on the right but substantially worse on the left * Lower extremity ultrasound: Negative for venous thrombosis * KALIN 07/15 confirms right-sided endocarditis with severe tricuspid regurgitation (w/mobile vegetation on tricuspid valve), moderate to severe pulmonary hypertension, and no other valvular vegetation.A patent foramen ovale is present with a [id number] shunt demonstrated by color flow Doppler interrogation. * 07/16 Brain MRI: 2 areas of central ring enhancement * 07/16 Spine MRI: discitis involving L5-S1, possible right renal infarction versus focal pyelonephritis Plan: CM consulted - appreciate assistance in discharge planning Palliative care consulted- appreciate assistance and recommendations ID consulted, appreciate assistance * s/p Oxacillin 2g IV Q4H (started 07/12-07/24). * IV Ancef 2 g q8H (better for fluid overloaded patient) (07/24 - ) * PICC line placed for continued outpatient treatment For pain: - Oxycodone 5 mg Q4H PRN pain 3-5 - Oxycodone 10 mg Q4H PRN for pain 6-10 - Morphine 2 mg Q4H IV for pain PRN breakthrough ICD Codes: I36.8 - Other nonrheumatic tricuspid valve disorders Status: Acute (2) Anasarca Plan: Positive fluid balance, weight gain of 50 lb over the course of discharge Nephrology consulted, appreciate recs Spoke w/nephrology on 07/24, started: s/p albumin IV 25 mg BID for 2 days (-) Con't Lasix 80 mg IV, transition to 40 mg PO BID at discharge ICD Codes: R60.1 - Generalized edema Status: Acute (3) Lesion of thumb Plan: Patient has multiple Janeway lesions at the hands and feet Keep exposed to air, apply Bactroban ointment TID Will continue to monitor ICD Codes: L98.9 - Disorder of the skin and subcutaneous tissue, unspecified Status: Acute (4) Acute renal failure Plan: consulted Nephrology, appreciate recommendations ICD Codes: N17.9 - Acute kidney failure, unspecified Status: Acute (5) Rash and nonspecific skin eruption Plan: Possible contact dermatitis v reaction to edema Resolved Continue hydrocortisone 0.5% cream to apply to rash on hands and lower legs PRN ICD Codes: R21 - Rash and other nonspecific skin eruption Status: Resolved (6) Anemia Plan: Baseline hemoglobin around 13.1 per chart review S/p 2 units transfusion on 07/16, 1 unit on 07/18, 07/19 Hgb has been stable Transfuse as needed (Hgb less than or equal to 7) ICD Codes: D64.9 - Anemia, unspecified Status: Acute (7) Cavitary pneumonia Plan: Initially satting 91% on room air at the start of this admission. Has been on 2L NC O2 for comfort most of this hospitalization. Increased to 4L NC O2 yesterday, has been satting adequately on 2L however. May require increased oxygen w/ambulating. Has been receiving albuterol neb Q6H, noted improvement in breathing w/these treatments Will require home O2 on discharge ICD Codes: J18.9 - Pneumonia, unspecified organism; J98.4 - Other disorders of lung Status: Acute (8) Muscle abscess ICD Codes: M62.89 - Other specified disorders of muscle Status: Acute (9) Labial swelling Plan: Soft tissue US shows phlegmon ICD Codes: N94.89 - Other specified conditions associated with female genital organs and menstrual cycle Status: Acute (10) IVDU (intravenous drug user) Plan: clonidine 0.1 mg every 6 hours when necessary for agitation ICD Codes: F19.90 - Other psychoactive substance use, unspecified, uncomplicated Status: Chronic Consultants Nephrology, Cardio, ID, Ortho, PT, Case management Procedures S/p right hip aspiration draining 4ml of yellow purulent appearing fluid on by Dr. Gilliland Brief History Ms Zee is a 26-year-old female with history of endocarditis and IV drug use. Presented from the [facility] clinic due to worsening generalized body aches, fatigue, cough, painful fingers and toes. Symptoms started about 1 week ago and have progressively worsened. Patient reports that she was previously clean from IV drug use for 3 years but had relapse about 1 week ago. Used IV heroin but reports using a clean needle. She is unsure if she used the same needle on herself but states it was not used by others. Has previously been tested for HIV in the past but has not been diagnosed with that. Reports only one prior episode of endocarditis 12/2016 but upon chart review it appears she may have had a prior episode of endocarditis 11/2016. She was admitted and blood cultures were drawn with 4/4 positive now for gram positive cocci in chains and pairs. She is very ill with multi organ systems effected. She is breathing with an increased rate but not using accessory muscles at this time. She speaks but takes a breath after about 2 words. Her tests of liver and kidneys are elevated. ID and Nephrology are consulted. CBC/BMP: 07/27/17 0644 07/27/17 0644 Significant Findings Laboratory Tests Test 07/26/17 12:39 07/27/17 06:44 Red Blood Count 2.81 MIL/MM3 (4.00-5.30) 2.93 MIL/MM3 (4.00-5.30) Hemoglobin 8.2 GM/DL (11.6-15.3) 8.6 GM/DL (11.6-15.3) Hematocrit 24.1 % (35.0-46.0) 25.3 % (35.0-46.0) Mean Platelet Volume 6.9 FL (7.0-11.0) Creatinine 1.26 MG/DL (0.50-1.00) 1.42 MG/DL (0.50-1.00) Albumin 2.0 GM/DL (3.4-5.0) 2.1 GM/DL (3.4-5.0) Sodium Level 133 MEQ/L (136-145) 133 MEQ/L (136-145) Potassium Level 3.0 MEQ/L (3.5-5.1) 3.4 MEQ/L (3.5-5.1) Chloride Level 90 MEQ/L (98-107) 90 MEQ/L (98-107) Carbon Dioxide Level 34.6 MEQ/L (21.0-32.0) 35.8 MEQ/L (21.0-32.0) Estimat Glomerular Filtration Rate 51 ML/MIN (>89) 44 ML/MIN (>89) Calcium Level 8.4 MG/DL (8.5-10.1) 8.3 MG/DL (8.5-10.1) Protein Corrected Calcium 8.2 MG/DL (8.5-10.1) Random Glucose 108 MG/DL (74-106) Imaging Last Impressions Lung Scan- Nuclear Medicine 07/19/17 0000 Signed Impressions: Service Date/Time: Wednesday, July 19, 2017 19:35 - CONCLUSION: 1. High probability for pulmonary embolus, likely septic emboli given the appearance of cavitary lesions in the lungs. Sebastien Moore MD Hip MRI 07/19/17 0000 Signed Impressions: Service Date/Time: Wednesday, July 19, 2017 21:25 - CONCLUSION: 1. No evidence for osteomyelitis. 2. Stable small to moderate-sized right hip joint effusion which now does demonstrate some rim enhancement postcontrast. It is unclear if this is related to infection or recent aspiration. 3. Relatively stable presumed small muscular abscess in the proximal left thigh adjacent to the left femoral head. 4. Extensive subcutaneous edema. Sebastien Moore MD Chest X-Ray 07/19/17 0000 Signed Impressions: Service Date/Time: Wednesday, July 19, 2017 18:37 - CONCLUSION: 1. Stable to slight improvement of bilateral airspace disease. Multiple cavitary lesions remain with trace pleural fluid. Sebastien Moore MD Soft Tissue Ultrasound 07/18/17 0000 Signed Impressions: Service Date/Time: June 15:11 - CONCLUSION: Heterogeneous mass/collection Chuy King MD Brain MRI 07/16/17 1124 Signed Impressions: Service Date/Time: Sunday, July 16, 2017 11:38 - CONCLUSION: 1. Focal area of edema with at least 2 areas of central ring enhancement. Findings could represent both neoplastic and infectious processes. Considering the reported history, I favor the latter. 2. Lesion appears to be isolated. No midline shift. Ihsan Garvin MD Lumbar Spine MRI 07/16/17 0000 Signed Impressions: Service Date/Time: Sunday, July 16, 2017 11:38 - CONCLUSION: Cannot exclude discitis involving L5-S1. Possible right renal infarction versus focal pyelonephritis. Free fluid in the pelvis. Chuy King MD Hip Aspiration/Injection 07/16/17 0000 Signed Impressions: Service Date/Time: Sunday, July 16, 2017 14:08 - CONCLUSION: Uncomplicated aspiration as above. Arpan Gilliland MD Abscess Drainage X-Ray 07/16/17 0000 Signed Impressions: Service Date/Time: Sunday, July 16, 2017 14:46 - CONCLUSION: A region of decreased, irregular echogenicity was identified corresponding to the area the patient's known abscess. This did not appear to represent a well-circumscribed fluid collection or ultrasound. No fluid could be aspirated from this. Arpan Gilliland MD Lower Extremity Ultrasound 07/14/17 0000 Signed Impressions: Service Date/Time: Friday, July 14, 2017 11:50 - CONCLUSION: Normal examination. Dang Bahena MD Hip and Pelvis X-Ray 07/14/17 0000 Signed Impressions: Service Date/Time: Friday, July 14, 2017 14:51 - CONCLUSION: Unremarkable examination of the right hip. Dang Bahena MD Renal Ultrasound 07/11/17 0000 Signed Impressions: Service Date/Time: June 09:00 - CONCLUSION: 1. No acute findings. Mildly increased renal echogenicity characteristic of medical renal disease. Sebastien Moore MD CT Angiography 07/10/17 0000 Signed Impressions: Service Date/Time: Monday, July 10, 2017 19:34 - CONCLUSION: 1. No pulmonary embolus. 2. Widespread patchy cavitary pneumonia of both lungs and probably on the basis of septic emboli. 3. Nonspecific hepatosplenomegaly. 4. Probable tricuspid regurgitation. Chuy Yang MD PE at Discharge GENERAL: This is an ill appearing female pt. Generally edematous. SKIN: Stable EYES: Extraocular motions intact. ENT: Moist mucous membranes. CARDIOVASCULAR: Tachycardic rate with normal rhythm. Grade 3/6 systolic murmur. RESPIRATORY: Decreased inspiratory air flow bilaterally. No accessory muscle use. 2L NC in place. Occasional cough productive of bloody sputum. GASTROINTESTINAL: Abdomen non-tender. MUSCULOSKELETAL: Edematous (pitting) extremities. This is improved NEUROLOGICAL: Able to maintain conversation. Normal speech. Hospital Course Patient is a 26 yo female with PMH significant for endocarditis, septic pulmonary emboli, and IV drug use admitted for severe sepsis secondary to endocarditis of tricuspid valve. Poor echocardiogram, severe tricuspid insufficiency, pulmonary hypertension and patent foramen ovale were noted. Unfortunately, the PFO was determined to be the route of widespread infection to the lungs, brain, hip, multiple skin sites, and high likelihood of continuing to spread to other areas of the body. She was fluid overloaded with significant edema, which was treated w/IV lasix. Right hip joint was aspirated by IR. ID, Nephrology, orthopedics, and cardiology were consulted. Surgery was deemed to be contraindicated due to patient's high risk for bleed while critically ill. Serial blood cultures were monitored, last blood cultures were negative for 3 days. Patient gained significant amount of weight since admission (50lbs) due to fluid retention. Per nephrology recommendations, was given an infusion of albumin for 2 days and an increased dose of IV lasix. Improvement in edema, fluid balance, and weight loss of 5 kg was observed over several days. Due to the progressive nature of the disease spread, palliative was consulted, who spoke w/patient and her family. Current consensus is to continue IV antibiotics for the treatment course unless a major setback in her condition arises; will then transition to comfort measures. It was decided that since aggressive treatment can be continued at home, patient could be discharged to complete course (with monitoring by ID). Upon stabilization of symptoms, negative blood cultures, and adequate control of diuresis, patient was cleared for PICC line placement and d/c to her grandparents' home w/home health and wheeled walker (per PT recommendations). May also continue albuterol nebulizer for shortness of breath related to cavitary pneumonia. Patient may continue to receive pain medication for her symptoms but will need to follow-up w/her PCP, who may adjust these as needed. Pt Condition on Discharge: Stable Discharge Disposition: Disch w/ Home Health Serv Discharge Instructions DIET: Follow Instructions for: As Tolerated, No Restrictions Activities you can perform: Regular-No Restrictions Follow up Referrals: PCP Follow-up - 1 Week New Medications: Cefazolin Inj (Cefazolin Inj) 2 Gm/50 Ml Bagp 2 GM IV Q8H for Infection for 40 Days, BAG 0 Refills Epinephrine Inj (Epinephrine Inj) 1 Mg/Ml (1 Ml) Inj 0.3 MG IV PUSH ONCE PRN for ALLERGIC REACTION, #1 VIAL Epinephrine Inj (Epinephrine Inj) 1 Mg/Ml (1 Ml) Inj 0.3 MG SQ ONCE PRN for ALLERGIC REACTION, #1 VIAL Give with any signs of respiratory distress. Hydrocortisone Inj (Solu-Cortef Inj) 250 Mg/2 Ml Inj 250 MG IV PUSH ONCE PRN for ALLERGIC REACTION, #1 VIAL 0 Refills Give over 30-60 seconds. Nebulizer Kit/Tubing/Mout (Nebulizer Kit/Tubing/Mout) 1 Kit Kit KIT .XX DIRECTED for Breathing Treatment, #1 0 Refills Ondansetron (Zofran) 4 Mg Tab 4 MG PO Q6HR PRN for NAUSEA OR VOMITING, #120 TAB 0 Refills Oxygen tank (Oxygen tank) 1 Ea Tank LITER WALI.CANULA CONTINUOUS for HYPOXEMIA PREVENTION, #1 Oxygen Concentrator Portable Gaseous 2 L/min via Nasal Cannula Continuous For 99 months Walker Rolling/GetGo (Walker Rolling/GetGo) 1 Mis Mis EA .XX DIRECTED, #1 Albuterol Neb (Albuterol Neb) 1.25 Mg/3 Ml Neb 1.25 MG NEB Q6HR NEB, #120 NEBULE Furosemide (Furosemide) 40 Mg Tab 40 MG PO BID@,18, #120 TAB Menthol (Mouth-Throat) (Blevins Cough Drops Sugar F) 5.8 Mg Hernando 1 LOZENGE BUCCAL Q1H PRN for SORE THROAT, #30 LOZENGE Oxycodone (Oxycodone) 5 Mg Tab 10 MG PO Q6HR PRN for PAIN 6-10, #60 TAB Oyster Shell (Oyster Calcium) 500 Mg Calcium (1250 Mg) Tab 1000 MG PO DAILY, #30 TAB Continued Medications: Clonazepam (Clonazepam) 1 Mg Tab 1 MG PO BID, #60 TAB 0 Refills (This prescription has been renewed) Discontinued Medications: Apixaban (Eliquis) 5 Mg Tab 5 MG PO BID for PE for 90 Days, #180 TAB Take 2 tablets (10 mg) bid till 01/30 then 5 mg po bid Rosamaria Sanford MD R1 Jul 28, 2017 19:53
== END 2017-07-28 16:45 | disposition home health service (06) | DRG 871 ==
LOC: NEPE 16:09 → NEDA 20:19 → NEDH 07-11 01:02 → N07B 07-11 15:45 → N03B 07-16 11:49 → N03A 07-16 12:01 → N07B 07-17 12:47
PROVIDERS: ADMIT Family Medicine; ATTEND Family Medicine
PROC: B246ZZ4 Ultrasonography of Right and Left Heart, Transesophageal (ICD-10-PCS; principal; 2017-07-15)
PROC: 0S993ZX Drainage of Right Hip Joint, Percutaneous Approach, Diagnostic (ICD-10-PCS; 2017-07-16)
PROC: 30233N1 Transfusion of Nonautologous Red Blood Cells into Peripheral Vein, Percutaneous Approach (ICD-10-PCS; 2017-07-16)
PROC: 05HY33Z Insertion of Infusion Device into Upper Vein, Percutaneous Approach (ICD-10-PCS; 2017-07-27)
DX: A41.01 Sepsis due to Methicillin susceptible Staphylococcus aureus (principal); I33.0 Acute and subacute infective endocarditis; I26.90 Septic pulmonary embolism without acute cor pulmonale; I76 Septic arterial embolism; G06.0 Intracranial abscess and granuloma; I66.9 Occlusion and stenosis of unspecified cerebral artery; I74.8 Embolism and thrombosis of other arteries; J18.9 Pneumonia, unspecified organism; N17.9 Acute kidney failure, unspecified; Q21.1 Atrial septal defect; L02.416 Cutaneous abscess of left lower limb; R04.2 Hemoptysis; M00.9 Pyogenic arthritis, unspecified; E22.2 Syndrome of inappropriate secretion of antidiuretic hormone; R65.20 Severe sepsis without septic shock; D69.6 Thrombocytopenia, unspecified; I27.29 Other secondary pulmonary hypertension; E83.51 Hypocalcemia; R16.2 Hepatomegaly with splenomegaly, not elsewhere classified; E86.0 Dehydration; J45.909 Unspecified asthma, uncomplicated; F41.9 Anxiety disorder, unspecified; M79.89 Other specified soft tissue disorders; D64.9 Anemia, unspecified; F19.10 Other psychoactive substance abuse, uncomplicated; E87.6 Hypokalemia; E88.09 Other disorders of plasma-protein metabolism, not elsewhere classified; M46.47 Discitis, unspecified, lumbosacral region; B95.61 Methicillin susceptible Staphylococcus aureus infection as the cause of diseases classified elsewhere; E87.70 Fluid overload, unspecified; M25.451 Effusion, right hip; Z51.5 Encounter for palliative care; R21 Rash and other nonspecific skin eruption; B37.3 Candidiasis of vulva and vagina; B95.5 Unspecified streptococcus as the cause of diseases classified elsewhere; Z72.0 Tobacco use; Z88.1 Allergy status to other antibiotic agents; Z86.711 Personal history of pulmonary embolism
CPT/HCPCS: 20610; 36430; 36569; 36600; 70553; 71045; 71046; 71275; 72158; 73501; 73723; 76775; 76937; 76999; 77002; 78582; 80048; 80053; 80074; 80307; 81001; 82040; 82310; 82533; 82570; 82805; 83605; 83735; 83880; 83935; 84100; 84155; 84300; 84550; 85007; 85014; 85018; 85025; 85027; 85384; 85610; 85652; 85730; 86021; 86038; 86140; 86160; 86403; 86430; 86703; 86850; 86900; 86901; 86920; 87040; 87070; 87081; 87086; 87147; 87186; 87205; 87449; 89051; 93005; 93306; 93312; 93320; 93325; 93970; 94150; 94640; 94664; 96361; 96374; 99152; 99153; A9540; A9567; A9577; A9579; C1769; J0131; J0610; J0690; J1050; J1642; J1940; J2020; J2250; J2270; J2405; J2543; J2700; J3010; J3480; J7030; J7050; J7613; J7644; P9016; P9045; Q9967

== ENCOUNTER 2017-08-09 15:25 | Emergency (ER) | payer BC ==
[~2017-08-09 15:25] MED LIST changes: +ALBU1.25 NEB; -APIX5TAB PO; +CALC500 PO; +CEFA2SOL IV; +EPIN1INJ21 IV PUSH; +EPIN1INJ21 SQ; +FURO40TA PO; +GETGO ROLLING W1 MI1; +HALLLOZ2 BUCCAL; +NEBUKIT5; +OXYC-392 PO; +OXYGENTANK NAS.CANULA; +SOLU250I IV PUSH; +ZOFR4TAB PO
[2017-08-09] MEDS ORDERED: GADODIAMIDE PF 287 MG/ML 5 ML VIAL (for RAD MRI) IVCONTRAST ONE (15:26)
[2017-08-09 15:58] VITALS: BP 119/75; PULSE 120; RESP 22; TEMP 98; O2SAT 97
[2017-08-09 16:06] VITALS: BP 125/80; PULSE 122; RESP 20; O2SAT 94
[2017-08-09 16:16] VITALS: O2SAT 95
[2017-08-09] MEDS ORDERED: HYDROmorphone HCL PF 2 MG/ML VIAL IVS ONE (16:30)
[2017-08-09] MEDS ORDERED: LORazepam 2 MG/ML VIAL IV PUSH ONE (16:30)
[2017-08-09] MEDS ORDERED: PROCHLORPERAZINE INJ 10 MG/2 ML VIAL IV PUSH ONE (16:30)
[2017-08-09] MEDS ORDERED: BENZ100 PO (16:39)
[2017-08-09] MEDS ORDERED: OXYC-395 PO (16:39)
[2017-08-09 16:48] LABS: AUTOMATED NEUTROPHIL # 5.2 TH/MM3 (1.8-7.7); BASOPHIL % 0.5 % (0.0-2.0); EOSINOPHIL # 0.1 TH/MM3 (0-0.4); EOSINOPHIL % 1.8 % (0.0-4.0); HEMATOCRIT 30.9 % (35.0-46.0); HEMOGLOBIN 10.3 GM/DL (11.6-15.3); LYMPH % 28.1 % (9.0-44.0); LYMPHOCYTE # 2.3 TH/MM3 (1.0-4.8); MEAN CELL VOLUME 86.2 FL (80.0-100.0); MEAN CORPUSCULAR HEMOGLOBIN 28.9 PG (27.0-34.0); MEAN CORPUSCULAR HGB CONC 33.5 % (32.0-36.0); MEAN PLATELET VOLUME 6.5 FL (7.0-11.0); MONO % 5.6 % (0.0-8.0); MONOCYTE # 0.5 TH/MM3 (0-0.9); PLATELET COUNT 405 TH/MM3 (150-450); RED BLOOD COUNT 3.58 MIL/MM3 (4.00-5.30); RED CELL DISTRIBUTION WIDTH 18.4 % (11.6-17.2); WHITE BLOOD COUNT 8.1 TH/MM3 (4.0-11.0)
[2017-08-09 17:18] LABS: BICARBONATE 26.9 MEQ/L (21.0-32.0); CALCIUM 9.1 MG/DL (8.5-10.1); CREATININE 1.16 MG/DL (0.50-1.00)
--- NOTE | 2017-08-09 17:30 | RADRPT ---
EXAM DATE/TIME: 08/09/2017 16:51 [facility] COMPARISON: US LEG BILATERAL VENOUS DOPPLER, July 14, 2017, 11:50. INDICATIONS : Bilateral leg swelling. MEDICAL HISTORY : Pulmonary embolism. Endocarditis. Asthma. Anxiety. Substance abuse. History of anticoagulant therapy, Eliquis. SURGICAL HISTORY : None. ENCOUNTER: Initial ACUITY: 4 - 6 days PAIN SCORE: 2/10 LOCATION: Bilateral legs. TECHNIQUE: Venous ultrasound of the left and right leg was performed from the inguinal ligament to the proximal calf. Real-time, color Doppler and spectral tracing, compression and augmentation techniques were us ed. FINDINGS: RIGHT LEG: There is normal compressibility of the deep venous system from the inguinal region to the proximal ca lf. No echogenic clot is seen in the lumen of the common femoral, femoral, popliteal, and posterior tibial veins. There is a normal response of the venous system to proximal and distal augmentation an d respiration. LEFT LEG: There is normal compressibility of the deep venous system from the inguinal region to the proximal ca lf. No echogenic clot is seen in the lumen of the common femoral, femoral, popliteal, and posterior tibial veins. There is a normal response of the venous system to proximal and distal augmentation an d respiration. CONCLUSION: 1. No sonographic evidence for lower extremity DVT. Hans Ponce MD on August 09, 2017 at 17:28 Board Certified Radiologist. This report was verified electronically.
--- NOTE | 2017-08-09 18:31 | RADRPT ---
EXAM DATE/TIME: 08/09/2017 17:19 [facility] COMPARISON: No previous studies available for comparison. INDICATIONS : Abscess. CONTRAST: 12 cc Omniscan (gadodiamide) IV MEDICAL HISTORY : Endocarditis, IVDA SURGICAL HISTORY : Hip abscess drain. ENCOUNTER: Initial ACUITY: 1 week PAIN SCORE: 7/10 LOCATION: Bilateral lower back region. TECHNIQUE: Multiplanar multisequence MRI of the lumbar spine was performed with and without contrast. FINDINGS: The most caudal appearing lumbar vertebra is numbered as L5. T12-L1: The thecal sac has a normal diameter. No evidence of disc bulge or protrusion. The neural foramina are patent bilaterally. L1-L2: The thecal sac has a normal diameter. No evidence of disc bulge or protrusion. The neural foramina are patent bilaterally. L2-L3: The thecal sac has a normal diameter. No evidence of disc bulge or protrusion. The neural foramina are patent bilaterally. L3-L4: The thecal sac has a normal diameter. No evidence of disc bulge or protrusion. The neural foramina are patent bilaterally. L4-L5: The thecal sac has a normal diameter. No evidence of disc bulge or protrusion. The neural foramina are patent bilaterally. L5-S1: There is marrow edema on both signs of the disc interspace at L5-S1. This is slightly increased from July 16. There is also some enhancement at the disc interspace postcontrast. This may represent an e miguel angel or mild discitis. No discrete abscess is seen. There is no epidural abscess. There is no canal s tenosis CONCLUSION: 1. Compared with July 16 marrow edema and enhancement at the disc interspace at L5-S1 has increased slightly less characteristic of mild discitis. There is no associated epidural abscess. No canal sten osis at this level. Sebastien Moore MD on August 09, 2017 at 18:22 Board Certified Radiologist. This report was verified electronically.
--- NOTE | 2017-08-09 18:34 | PD ---
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 Patient was seen by the home health nurse and told her of her pain that she had earlier. She reports that they sent her here to rule out DVT. The patient denies any acute fever. She has been taking her IV antibiotics as scheduled. There are no other complaints at the time of my examination. Patient denies any incontinence or saddle anesthesia. PFSH Past Medical History Asthma: Yes Anxiety: Yes (hx of ) Depression: No Cancer: No Cardiovascular Problems: Yes (TRICUSPID VALVE ENDOCARDITIS) Chemotherapy: No Chest Pain: Yes Endocrine: No Genitourinary: No Immune Disorder: No Implanted Vascular Access Dvce: Yes (this has been removed) Musculoskeletal: No Neurologic: No Psychiatric: Yes Reproductive: No Respiratory: Yes Radiation Therapy: No Past Surgical History Other Surgery: No Social History Alcohol Use: No Tobacco Use: Yes Substance Use: Yes (heroine) Allergies-Medications (Allergen,Severity, Reaction): Coded Allergies: vancomycin (Verified Allergy, Intermediate, Rash, 08/09/17) Reported Meds & Prescriptions Reported Meds & Active Scripts Active Oxygen tank (Oxygen) 1 Ea Tank Liter WALI.CANULA CONTINUOUS Oxygen Concentrator Portable Gaseous 2 L/min via Nasal Cannula Continuous For 99 months Albuterol Neb (Albuterol Sulfate) 1.25 Mg/3 Ml Neb 1.25 Mg NEB Q6HR NEB Oxycodone (Oxycodone HCl) 5 Mg Tab 10 Mg PO Q6HR PRN Clonazepam 1 Mg Tab 1 Mg PO BID Epinephrine Inj 1 Mg/Ml (1 Ml) Inj 0.3 Mg SQ ONCE PRN Give with any signs of respiratory distress. Solu-Cortef Inj (Hydrocortisone Sodium Succinate) 250 Mg/2 Ml Inj 250 Mg IV PUSH ONCE PRN Give over 30-60 seconds. Cefazolin Inj (Cefazolin Sodium/Dextrose) 2 Gm/50 Ml Bagp 2 Gm IV Q8H 40 Days Zofran (Ondansetron HCl) 4 Mg Tab 4 Mg PO Q6HR PRN Furosemide 40 Mg Tab 40 Mg PO BID@ Reported Tessalon Perles (Benzonatate) 100 Mg Cap 100 Mg PO TID Oxycodone (Oxycodone HCl) 10 Mg Tab 10 Mg PO Q4HR Review of Systems Except as stated in HPI: all other systems reviewed are Neg General / Constitutional: No: Fever, Chills HENT: No: Headaches, Neck Pain Cardiovascular: No: Chest Pain or Discomfort, Palpitations Respiratory: No: Cough, Shortness of Breath Gastrointestinal: No: Nausea Genitourinary: No: Dysuria, Incontinence Musculoskeletal: Positive: Pain (Lower back pain. She reports not worse than previous. Patient also reports pain in her feet earlier. This is since resolved.), No: Weakness Skin: Positive Other (Skin color changes of her bilateral lower extremities. This is not new. This is since admitted and discharged with hospital previously.) Neurologic: No: Weakness, Headache, Sensory Disturbance Psychiatric: Positive: Substance Abuse (History of. Not use since being home with her grandparents.) Physical Exam Narrative GENERAL: Well-developed well-nourished female in no acute respiratory distress. SKIN: Focused skin assessment warm/dry. HEAD: Atraumatic. Normocephalic. EYES: Pupils equal and round. No scleral icterus. No injection or drainage. ENT: No nasal bleeding or discharge. Mucous membranes pink and moist. NECK: Trachea midline. No JVD. CARDIOVASCULAR: Sinus tachycardia rate of 112. Positive systolic flow murmur. RESPIRATORY: No accessory muscle use. Clear to auscultation. Breath sounds equal bilaterally. Decreased respiratory effort GASTROINTESTINAL: Abdomen soft, non-tender, nondistended. MUSCULOSKELETAL: No obvious deformities. No clubbing. No cyanosis. No edema. No calf tenderness. No palpable cords in the popliteal area bilaterally. There is some chronic skin color changes. No redness or drainage noted. NEUROLOGICAL: Awake and alert. No obvious cranial nerve deficits. Motor grossly within normal limits. Normal speech. Data Data Last Documented VS Vital Signs Date Time Temp Pulse Resp B/P (MAP) Pulse Ox O2 Delivery O2 Flow Rate FiO2 08/09/17 18:35 105 14 97/62 (74) 98 Room Air 08/09/17 15:58 98.0 Orders Orders Electrocardiogram (08/09/17 ) Complete Blood Count With Diff (08/09/17 16:12) Basic Metabolic Panel (Bmp) (08/09/17 16:12) Iv Access Insert/Monitor (08/09/17 16:12) Ecg Monitoring (08/09/17 16:12) Oximetry (08/09/17 16:12) Us Leg Venous Doppler Bilat (08/09/17 16:12) Mri L Spine W&W/O Contrast (08/09/17 16:12) Hydromorphone Pf Inj (Dilaudid Pf Inj) (08/09/17 16:30) Prochlorperazine Inj (Compazine Inj) (08/09/17 16:30) Lorazepam Inj (Ativan Inj) (08/09/17 16:30) Gadodiamide Pf Inj (Omniscan Pf Inj) (08/09/17 15:26) Labs Laboratory Tests Test 08/09/17 16:20 White Blood Count 8.1 TH/MM3 Red Blood Count 3.58 MIL/MM3 Hemoglobin 10.3 GM/DL Hematocrit 30.9 % Mean Corpuscular Volume 86.2 FL Mean Corpuscular Hemoglobin 28.9 PG Mean Corpuscular Hemoglobin Concent 33.5 % Red Cell Distribution Width 18.4 % Platelet Count 405 TH/MM3 Mean Platelet Volume 6.5 FL Neutrophils (%) (Auto) 64.0 % Lymphocytes (%) (Auto) 28.1 % Monocytes (%) (Auto) 5.6 % Eosinophils (%) (Auto) 1.8 % Basophils (%) (Auto) 0.5 % Neutrophils # (Auto) 5.2 TH/MM3 Lymphocytes # (Auto) 2.3 TH/MM3 Monocytes # (Auto) 0.5 TH/MM3 Eosinophils # (Auto) 0.1 TH/MM3 Basophils # (Auto) 0.0 TH/MM3 CBC Comment DIFF FINAL Differential Comment Blood Urea Nitrogen 22 MG/DL Creatinine 1.16 MG/DL Random Glucose 93 MG/DL Calcium Level 9.1 MG/DL Sodium Level 139 MEQ/L Potassium Level 4.2 MEQ/L Chloride Level 103 MEQ/L Carbon Dioxide Level 26.9 MEQ/L Anion Gap 9 MEQ/L Estimat Glomerular Filtration Rate 56 ML/MIN MDM Medical Decision Making Medical Screen Exam Complete: Yes Emergency Medical Condition: Yes Differential Diagnosis Epidural abscess versus DVTs versus metabolic derangement. Narrative Course 27-year-old female history of IV drug use, endocarditis, HIV disease, discitis, presents here at the recommendation of the home health nurse to rule out DVT. Patient had episode of pain in her bilateral lower feet/lower legs. There was no reported weakness. Patient does have a history of discitis. Ultrasound of the bilateral lower extremity shows no evidence of DVT. MRI of the lumbar spine shows slight increased enhancement of the lumbar spine area however there is no evidence of abscess. I discussed the findings with the patient and her grandparents. Given the fact that she is still receiving IV antibiotics, the patient will be discharged. She is instructed to continue her antibiotics. They are instructed to return if she develops any fevers, chills, weakness of her lower extremities, incontinence to bowel or bladder, or any other reason. Diagnosis Primary Impression: Bilateral lower extremity pain Additional Impressions: Discitis of the lumbar spine Endocarditis Additional Instructions: Continue antibiotics. Return if increased pain, weakness of the extremities, loss of bowel or bladder function, or any other reason that concerns you. Disposition: 01 DISCHARGE HOME Condition: Stable Attila Ash MD Aug 09, 2017 18:34
[2017-08-09 18:35] VITALS: BP 97/62; PULSE 105; RESP 14; O2SAT 98
--- NOTE | 2017-08-10 17:03 | EKG ---
Date Performed: 08/09/2017 Time Performed: 16:13:15 PTAGE: 27 years EKG: SINUS TACHYCARDIA MARKED RIGHT AXIS DEVIATION NONSPECIFIC T-WAVE ABNORMALITY ABNORMAL ECG S benito the PREVIOUS TRACING , no significant change noted PREVIOUS TRACIN07/19/2017 18.47 DOCTOR: Cathy Muñoz Interpretating Date/Time 08/10/2017 17:01:47
== END 2017-08-09 19:15 | disposition home or self-care (01) ==
LOC: NEPC 15:25
DX: M79.604 Pain in right leg (principal); M79.605 Pain in left leg; M46.46 Discitis, unspecified, lumbar region; I38 Endocarditis, valve unspecified; R94.31 Abnormal electrocardiogram [ECG] [EKG]; J45.909 Unspecified asthma, uncomplicated; Z86.718 Personal history of other venous thrombosis and embolism; Z72.0 Tobacco use; Z21 Asymptomatic human immunodeficiency virus [HIV] infection status; Z87.898 Personal history of other specified conditions
CPT/HCPCS: 72158; 80048; 85025; 93005; 93970; A9579; J0780; J1170; J2060; 99281

== ENCOUNTER 2017-09-08 11:59 | Inpatient (IN) | END 2017-09-18 14:13 | disposition home or self-care (01) | DRG 871 | DX: A41.9 Sepsis, unspecified organism (principal); G06.0 Intracranial abscess and granuloma; N17.9 Acute kidney failure, unspecified; I66.9 Occlusion and stenosis of unspecified cerebral artery; I31.3 Pericardial effusion (noninflammatory); M00.9 Pyogenic arthritis, unspecified; R18.8 Other ascites; Q21.1 Atrial septal defect; N39.0 Urinary tract infection, site not specified; M60.009 Infective myositis, unspecified site; I36.8 Other nonrheumatic tricuspid valve disorders; J98.4 Other disorders of lung; R21 Rash and other nonspecific skin eruption; D64.9 Anemia, unspecified; R60.0 Localized edema; F41.9 Anxiety disorder, unspecified; G89.29 Other chronic pain; R63.8 Other symptoms and signs concerning food and fluid intake; R93.8 Abnormal findings on diagnostic imaging of other specified body structures; G47.00 Insomnia, unspecified; M25.551 Pain in right hip; M46.47 Discitis, unspecified, lumbosacral region; M25.451 Effusion, right hip; R07.81 Pleurodynia; B96.89 Other specified bacterial agents as the cause of diseases classified elsewhere; F19.10 Other psychoactive substance abuse, uncomplicated; J45.909 Unspecified asthma, uncomplicated; Z86.61 Personal history of infections of the central nervous system; Z86.711 Personal history of pulmonary embolism ==